=== PATIENT | female | born 1935 | race Caucasian/White ===

== ENCOUNTER → 2017-12-20 | Outpatient (CLI) | payer MEDICARE, BC ==
[2017-12-20 16:47] LABS: Anion Gap 8.6 mmol/L (4.00-12.00); Calcium 8.8 mg/dL (8.7-10.3); Carbon Dioxide 30.4 mmol/L (21.6-31.8); Potassium 4.2 mmol/L (3.5-5.5)
== END | disposition home or self-care (01) ==
LOC: LABWHC1 10:21
PROVIDERS: ATTEND Internal Medicine Cardiovascular Disease
DX: R60.0 Localized edema (principal)
CPT/HCPCS: 36415; 80048

== ENCOUNTER → 2017-12-30 | Outpatient (CLI) | payer MEDICARE, BC ==
[2017-12-30 17:27] LABS: Anion Gap 8.8 mmol/L (4.00-12.00); Calcium 10.1 mg/dL (8.7-10.3); Carbon Dioxide 28.2 mmol/L (21.6-31.8); Potassium 4.7 mmol/L (3.5-5.5)
== END | disposition home or self-care (01) ==
LOC: LABWHC1 11:02
PROVIDERS: ATTEND Internal Medicine Cardiovascular Disease
DX: I50.9 Heart failure, unspecified (principal)
CPT/HCPCS: 36415; 80048

== ENCOUNTER 2018-03-30 13:14 | Emergency (ER) | payer MEDICARE, BC ==
[2018-03-30] MEDS ORDERED: DIPHENOX-ATROP 2.5-0.025 MG 1 EACH TAB PO STA (13:42)
[2018-03-30] MEDS ORDERED: SODIUM CHLORIDE 0.9% 1,000 ML IV ONE (13:45)
[2018-03-30] MEDS ORDERED: SODIUM CHLORIDE 0.9% 500 ML 500 ML IV ONE (13:45)
--- NOTE | 2018-03-30 13:45 | ED ---
General Adult HPI - General Chief complaint: Recheck/Abnormal Lab/Rx Stated complaint: defibrillator buzzed twice Time Seen by Provider: 03/30/18 13:15 Source: patient, RN notes reviewed Mode of arrival: wheelchair Limitations: no limitations - History of Present Illness Initial comments: This is a 82-year-old female presents emergency Department complaining of nausea vomiting and diarrhea. Patient states she has not vomited all today but continues to have quite a bit of diarrhea. Patient states been ongoing for 5 days. Patient states her had the same thing but he is starting to get over his. Patient states they got it from the grandson about a week ago. Patient states she has no abdominal pain but she just feeling weaker and weaker. Patient denies any chest pain difficulty breathing or shortness of breath. Patient denies any fever chills or cough per patient denies any dysuria hematuria urinary frequency. Patient denies headache. Patient states she's a little bit lightheaded on occasion but no near-syncopal episode. Patient has also mention that earlier in the week her defibrillator paused twice but did not shocked her and she didn't know what that meant. Patient states she had no chest pain difficulty breathing or palpitations at that time. Has not occurred since. - Related Data Home Medications Medication Instructions Recorded Confirmed Calcium Carbonate [Calcium] 600 mg PO DAILY 10/22/15 03/30/18 Cetirizine HCl [Zyrtec] 10 mg PO DAILY PRN 10/22/15 03/30/18 Furosemide [Lasix] 60 mg PO DAILY 10/22/15 03/30/18 Glimepiride [Amaryl] 2 mg PO AC-BRKFST 10/22/15 03/30/18 Magnesium Chloride [Mag64] 64 mg PO DAILY 10/22/15 03/30/18 Multivit with Calcium,Iron,Min 1 each PO DAILY 10/22/15 03/30/18 [Women's Daily Multivitamin] Simvastatin [Zocor] 20 mg PO HS 10/22/15 03/30/18 Spironolactone [Aldactone] 25 mg PO DAILY 10/22/15 03/30/18 Amiodarone [Cordarone] 200 mg PO QAM 11/24/15 03/30/18 Clindamycin Gel [Clindamycin 1 applic TOPICAL BID 12/15/15 03/30/18 Phosphate 1% Gel] Doxycycline Hyclate 100 mg PO DAILY 12/15/15 03/30/18 Triamcinolone 0.1% Lotion [Kenalog 1 applic TOPICAL BID 12/15/15 03/30/18 0.1% Lotion] Ascorbic Acid [Vitamin C] 500 mg PO DAILY 03/30/18 03/30/18 Digoxin [Digitek] 125 mcg PO MOWEFR 03/30/18 03/30/18 Glimepiride [Amaryl] 1 mg PO AC-SUPPER 03/30/18 03/30/18 Levothyroxine Sodium [Synthroid] 25 mcg PO DAILY 03/30/18 03/30/18 Sacubitril/Valsartan [Entresto 24 1 tab PO DAILY 03/30/18 03/30/18 mg-26 mg Tablet] Warfarin [Coumadin] 1 mg PO SUTUTHFR 03/30/18 03/30/18 Warfarin [Coumadin] 1.5 mg PO MOWEFR 03/30/18 03/30/18 sitaGLIPtin [Januvia] 50 mg PO HS 03/30/18 03/30/18 Previous Rx's Medication Instructions Recorded Metoprolol Succinate [Toprol XL] 100 mg PO DAILY #100 tab 12/17/15 Diphenox-Atrop 2.5-0.025 mg 2 tab PO QID PRN 3 Days #10 tab 03/30/18 [Lomotil] Allergies Allergy/AdvReac Type Severity Reaction Status Date / Time quinidine Allergy Rash/Hives Verified 03/30/18 14:21 CLEAR PLASTIC TAPE Allergy Rash/Hives Uncoded 03/30/18 14:21 Review of Systems ROS Statement: Those systems with pertinent positive or pertinent negative responses have been documented in the HPI. ROS Other: All systems not noted in ROS Statement are negative. Past Medical History Past Medical History: Cancer, Diabetes Mellitus, Hyperlipidemia, Osteoarthritis (OA), Skin Disorder, Vascular Disorder Additional Past Medical History / Comment(s): see Dr Cooper's H&P for cardiac history, basal cell skin cancer, rash on face History of Any Multi-Drug Resistant Organisms: None Reported Past Surgical History: AICD, Appendectomy, Bladder Surgery, Bowel Resection, Cholecystectomy, Heart Catheterization, Tonsillectomy, Tubal Ligation Additional Past Surgical History / Comment(s): venogram/fluoroscopy, neema cataracts, Past Anesthesia/Blood Transfusion Reactions: No Reported Reaction Type of Cardiac Device: AICD Device Placement Date:: 2007 Past Psychological History: No Psychological Hx Reported Smoking Status: Never smoker Past Alcohol Use History: None Reported Past Drug Use History: None Reported - Past Family History Father Family Medical History: Cancer Mother Family Medical History: Cancer Sister(s) Family Medical History: Cancer, Deep Vein Thrombosis (DVT) Brother(s) History Unknown: Yes Family Medical History: Cancer General Exam - General Exam Comments Initial Comments: GENERAL: Patient is well-developed and well-nourished. Patient is nontoxic and well- hydrated and is in mild distress. ENT: Neck is soft and supple. No significant lymphadenopathy is noted. Oropharynx is clear. Moist mucous membranes. Neck has full range of motion without eliciting any pain. EYES: The sclera were anicteric and conjunctiva were pink and moist. Extraocular movements were intact and pupils were equal round and reactive to light. Eyelids were unremarkable. PULMONARY: Unlabored respirations. Good breath sounds bilaterally. No audible rales rhonchi or wheezing was noted. CARDIOVASCULAR: There is a regular rate and rhythm without any murmurs gallops or rubs. ABDOMEN: Soft and nontender with normal bowel sounds. No palpable organomegaly was noted. There is no palpable pulsatile mass. SKIN: Skin is clear with no lesions or rashes and otherwise unremarkable. NEUROLOGIC: Patient is alert and oriented x3. Cranial nerves II through XII are grossly intact. Motor and sensory are also intact. Normal speech, volume and content. Symmetrical smile. MUSCULOSKELETAL: Normal extremities with adequate strength and full range of motion. No lower extremity swelling or edema. No calf tenderness. LYMPHATICS: No significant lymphadenopathy is noted PSYCHIATRIC: Normal psychiatric evaluation. Limitations: no limitations Course Vital Signs 03/30/18 03/30/18 03/30/18 13:18 14:00 15:00 Temperature 98.2 F 97.9 F Pulse Rate 71 78 79 Respiratory 18 16 16 Rate Blood Pressure 108/61 94/61 95/64 O2 Sat by Pulse 97 95 96 Oximetry 03/30/18 16:00 Temperature Pulse Rate 78 Respiratory 16 Rate Blood Pressure 90/54 O2 Sat by Pulse 95 Oximetry Medical Decision Making - Medical Decision Making EKG shows a ventricular paced rhythm at 70 bpm QRS is 202 QT interval is 490 QTC is 529. Patient was having no diarrhea in the emergency department. Patient stated after she got fluids she was feeling considerably better. Patient will call her doctor tomorrow for follow-up because of the renal insufficiency she also will follow up with cardiology at 10:00 tomorrow morning for the buzzing sensation in her pacemaker. - Lab Data Result diagrams: 03/30/18 14:29 03/30/18 14:29 Lab Results 03/30/18 03/30/18 03/30/18 Range/Units 14:29 14:29 14:29 WBC 5.6 (3.8-10.6) k/uL RBC 5.09 (3.80-5.40) m/uL Hgb 15.7 (11.4-16.0) gm/dL Hct 47.7 H (34.0-46.0) % MCV 93.6 (80.0-100.0) fL MCH 30.9 (25.0-35.0) pg MCHC 33.0 (31.0-37.0) g/dL RDW 14.3 (11.5-15.5) % Plt Count 118 L (150-450) k/uL Neutrophils % 77 % Lymphocytes % 14 % Monocytes % 8 % Eosinophils % 0 % Basophils % 0 % Neutrophils # 4.3 (1.3-7.7) k/uL Lymphocytes # 0.8 L (1.0-4.8) k/uL Monocytes # 0.4 (0-1.0) k/uL Eosinophils # 0.0 (0-0.7) k/uL Basophils # 0.0 (0-0.2) k/uL PT 27.4 H (9.0-12.0) sec INR 2.8 H (<1.2) APTT 34.0 H (22.0-30.0) sec Sodium 138 (137-145) mmol/L Potassium 4.1 (3.5-5.1) mmol/L Chloride 106 (98-107) mmol/L Carbon Dioxide 17 L (22-30) mmol/L Anion Gap 15 mmol/L BUN 77 H (7-17) mg/dL Creatinine 2.26 H (0.52-1.04) mg/dL Est GFR (CKD-EPI)AfAm 22 (>60 ml/min/1.73 sqM) Est GFR (CKD-EPI)NonAf 19 (>60 ml/min/1.73 sqM) Glucose 136 H (74-99) mg/dL Calcium 8.2 L (8.4-10.2) mg/dL Magnesium 2.3 (1.6-2.3) mg/dL Total Bilirubin 1.1 (0.2-1.3) mg/dL AST 40 H (14-36) U/L ALT 31 (9-52) U/L Alkaline Phosphatase 34 L (38-126) U/L Total Creatine Kinase (30-135) U/L CK-MB (CK-2) (0.0-2.4) ng/mL CK-MB (CK-2) Rel Index Troponin I (0.000-0.034) ng/mL Total Protein 6.7 (6.3-8.2) g/dL Albumin 3.8 (3.5-5.0) g/dL Amylase 85 (30-110) U/L Lipase 77 (23-300) U/L 03/30/18 Range/Units 14:29 WBC (3.8-10.6) k/uL RBC (3.80-5.40) m/uL Hgb (11.4-16.0) gm/dL Hct (34.0-46.0) % MCV (80.0-100.0) fL MCH (25.0-35.0) pg MCHC (31.0-37.0) g/dL RDW (11.5-15.5) % Plt Count (150-450) k/uL Neutrophils % % Lymphocytes % % Monocytes % % Eosinophils % % Basophils % % Neutrophils # (1.3-7.7) k/uL Lymphocytes # (1.0-4.8) k/uL Monocytes # (0-1.0) k/uL Eosinophils # (0-0.7) k/uL Basophils # (0-0.2) k/uL PT (9.0-12.0) sec INR (<1.2) APTT (22.0-30.0) sec Sodium (137-145) mmol/L Potassium (3.5-5.1) mmol/L Chloride (98-107) mmol/L Carbon Dioxide (22-30) mmol/L Anion Gap mmol/L BUN (7-17) mg/dL Creatinine (0.52-1.04) mg/dL Est GFR (CKD-EPI)AfAm (>60 ml/min/1.73 sqM) Est GFR (CKD-EPI)NonAf (>60 ml/min/1.73 sqM) Glucose (74-99) mg/dL Calcium (8.4-10.2) mg/dL Magnesium (1.6-2.3) mg/dL Total Bilirubin (0.2-1.3) mg/dL AST (14-36) U/L ALT (9-52) U/L Alkaline Phosphatase (38-126) U/L Total Creatine Kinase 78 (30-135) U/L CK-MB (CK-2) 1.8 (0.0-2.4) ng/mL CK-MB (CK-2) Rel Index 2.3 Troponin I <0.012 (0.000-0.034) ng/mL Total Protein (6.3-8.2) g/dL Albumin (3.5-5.0) g/dL Amylase (30-110) U/L Lipase (23-300) U/L Disposition Clinical Impression: Acute diarrhea Disposition: HOME SELF-CARE Condition: Good Instructions (If sedation given, give patient instructions): Acute Diarrhea (ED ) Additional Instructions: Patient should follow up with cardiology at 10:00 tomorrow for the buzzing feeling she had her pacemaker. Patient should increase her fluid intake as well as start eating some bland foods. Patient should take Lomotil only when she has diarrhea. Prescriptions: Diphenox-Atrop 2.5-0.025 mg [Lomotil] 2 tab PO QID PRN 3 Days #10 tab PRN Reason: Diarrhea Is patient prescribed a controlled substance at d/c from ED?: No Referrals: Miles Medrano MD [Primary Care Provider] - 1-2 days Time of Disposition: 16:44
[2018-03-30 14:18] VITALS: RESP 16
[2018-03-30 15:13] LABS: Basophils % (A) 0 %; Eosinophils % (A) 0 %; HCT 47.7 % (34.0-46.0); HGB 15.7 gm/dL (11.4-16.0); Lymphocytes # (A) 0.8 k/uL (1.0-4.8); Lymphocytes % (A) 14 %; MCH 30.9 pg (25.0-35.0); MCV 93.6 fL (80.0-100.0); Mean Platelet Volume 7.6; Monocytes # (A) 0.4 k/uL (0-1.0); Monocytes % (A) 8 %; Neutrophils # (A) 4.3 k/uL (1.3-7.7); Neutrophils % (A) 77 %; Platelet Count 118 k/uL (150-450); RBC 5.09 m/uL (3.80-5.40); RDW 14.3 % (11.5-15.5); WBC 5.6 k/uL (3.8-10.6)
[2018-03-30 15:17] LABS: INR 2.8 (<1.2); Prothrombin Time 27.4 sec (9.0-12.0)
[2018-03-30 15:20] VITALS: TEMP 97.9
[2018-03-30 15:20] LABS: Creatine Kinase 78 U/L (30-135)
[2018-03-30 15:21] LABS: Albumin 3.8 g/dL (3.5-5.0); Calcium 8.2 mg/dL (8.4-10.2); Magnesium 2.3 mg/dL (1.6-2.3); Potassium 4.1 mmol/L (3.5-5.1); Total Bilirubin 1.1 mg/dL (0.2-1.3); Total Protein 6.7 g/dL (6.3-8.2)
--- NOTE | 2018-03-30 15:24 | XR ---
EXAMINATION TYPE: XR chest 2V DATE OF EXAM: 03/30/2018 COMPARISON: 12/17/2015 HISTORY: Shortness of breath TECHNIQUE: Frontal and lateral views of the chest are obtained. FINDINGS: Scattered senescent parenchymal changes noted. Hyperinflation compatible with COPD. No evidence for infiltrate. No evidence for atelectasis. Heart size is stable. Mediastinal structures are stable and grossly unremarkable. No evidence for hilar prominence. Degenerative changes dorsal spine. IMPRESSION: 1. No evidence for acute pulmonary disease.
[2018-03-30 15:33] LABS: Creatine Kinase MB 1.8 ng/mL (0.0-2.4); Troponin I <0.012 ng/mL (0.000-0.034)
[2018-03-30 16:07] VITALS: BP 90/54; PULSE 78
== END 2018-03-30 16:59 | disposition home or self-care (01) ==
LOC: EC 13:14
DX: R19.7 Diarrhea, unspecified (principal); T82.897A Other specified complication of cardiac prosthetic devices, implants and grafts, initial encounter; R11.2 Nausea with vomiting, unspecified; Z85.828 Personal history of other malignant neoplasm of skin; E11.9 Type 2 diabetes mellitus without complications; E78.5 Hyperlipidemia, unspecified; I99.9 Unspecified disorder of circulatory system; Z95.810 Presence of automatic (implantable) cardiac defibrillator; Z95.818 Presence of other cardiac implants and grafts; Z79.84 Long term (current) use of oral hypoglycemic drugs; Z79.890 Hormone replacement therapy; Z79.01 Long term (current) use of anticoagulants; Z79.899 Other long term (current) drug therapy; Z88.8 Allergy status to other drugs, medicaments and biological substances; Z91.048 Other nonmedicinal substance allergy status
CPT/HCPCS: 36415; 71046; 80053; 82150; 82550; 82553; 83690; 83735; 84484; 85025; 85610; 85730; 93005; 96360; 99284

== ENCOUNTER 2018-07-03 10:03 | Emergency (ER) | payer MEDICARE, BC ==
[2018-07-03 10:19] VITALS: RESP 18
--- NOTE | 2018-07-03 11:43 | ED ---
General Adult HPI - General Chief complaint: Fall Stated complaint: Fell/rib pain Time Seen by Provider: 07/03/18 11:22 Source: patient, RN notes reviewed, old records reviewed Mode of arrival: wheelchair Limitations: no limitations - History of Present Illness Initial comments: 83-year-old female presenting status post fall. Fall occurred approximately 48 hours prior to arrival. Patient states she lost her balance falling onto her right side. She had head trauma to the right side of her head, no loss consciousness. Patient is currently on Coumadin. She complains of right shoulder pain, right lateral chest wall pain. And right hip pain. She has been ambulatory for the past 2 days. She does report bruising associated with her injuries. No central chest pain. No dyspnea. - Related Data Home Medications Medication Instructions Recorded Confirmed Calcium Carbonate [Calcium] 600 mg PO DAILY 10/22/15 03/30/18 Cetirizine HCl [Zyrtec] 10 mg PO DAILY PRN 10/22/15 03/30/18 Furosemide [Lasix] 60 mg PO DAILY 10/22/15 03/30/18 Glimepiride [Amaryl] 2 mg PO AC-BRKFST 10/22/15 03/30/18 Magnesium Chloride [Mag64] 64 mg PO DAILY 10/22/15 03/30/18 Multivit with Calcium,Iron,Min 1 each PO DAILY 10/22/15 03/30/18 [Women's Daily Multivitamin] Simvastatin [Zocor] 20 mg PO HS 10/22/15 03/30/18 Spironolactone [Aldactone] 25 mg PO DAILY 10/22/15 03/30/18 Amiodarone [Cordarone] 200 mg PO QAM 11/24/15 03/30/18 Clindamycin Gel [Clindamycin 1 applic TOPICAL BID 12/15/15 03/30/18 Phosphate 1% Gel] Doxycycline Hyclate 100 mg PO DAILY 12/15/15 03/30/18 Triamcinolone 0.1% Lotion [Kenalog 1 applic TOPICAL BID 12/15/15 03/30/18 0.1% Lotion] Ascorbic Acid [Vitamin C] 500 mg PO DAILY 03/30/18 03/30/18 Digoxin [Digitek] 125 mcg PO MOWEFR 03/30/18 03/30/18 Glimepiride [Amaryl] 1 mg PO AC-SUPPER 03/30/18 03/30/18 Levothyroxine Sodium [Synthroid] 25 mcg PO DAILY 03/30/18 03/30/18 Sacubitril/Valsartan [Entresto 24 1 tab PO DAILY 03/30/18 03/30/18 mg-26 mg Tablet] Warfarin [Coumadin] 1 mg PO SUTUTHFR 03/30/18 03/30/18 Warfarin [Coumadin] 1.5 mg PO MOWEFR 03/30/18 03/30/18 sitaGLIPtin [Januvia] 50 mg PO HS 03/30/18 03/30/18 Previous Rx's Medication Instructions Recorded Metoprolol Succinate [Toprol XL] 100 mg PO DAILY #100 tab 12/17/15 Diphenox-Atrop 2.5-0.025 mg 2 tab PO QID PRN 3 Days #10 tab 03/30/18 [Lomotil] HYDROcodone/APAP 5-325MG [Pinckard 1 tab PO Q6HR PRN #12 tab 07/03/18 5-325] Allergies Allergy/AdvReac Type Severity Reaction Status Date / Time quinidine Allergy Rash/Hives Verified 07/03/18 10:16 CLEAR PLASTIC TAPE Allergy Rash/Hives Uncoded 03/30/18 14:21 Review of Systems ROS Statement: Those systems with pertinent positive or pertinent negative responses have been documented in the HPI. ROS Other: All systems not noted in ROS Statement are negative. Past Medical History Past Medical History: Cancer, Diabetes Mellitus, Hyperlipidemia, Osteoarthritis (OA), Skin Disorder, Vascular Disorder Additional Past Medical History / Comment(s): see Dr Cooper's H&P for cardiac history, basal cell skin cancer, rash on face History of Any Multi-Drug Resistant Organisms: None Reported Past Surgical History: AICD, Appendectomy, Bladder Surgery, Bowel Resection, Cholecystectomy, Heart Catheterization, Tonsillectomy, Tubal Ligation Additional Past Surgical History / Comment(s): venogram/fluoroscopy, neema cataracts, Past Anesthesia/Blood Transfusion Reactions: No Reported Reaction Type of Cardiac Device: AICD Device Placement Date:: 2007 Past Psychological History: No Psychological Hx Reported Smoking Status: Never smoker Past Alcohol Use History: None Reported Past Drug Use History: None Reported - Past Family History Father Family Medical History: Cancer Mother Family Medical History: Cancer Sister(s) Family Medical History: Cancer, Deep Vein Thrombosis (DVT) Brother(s) History Unknown: Yes Family Medical History: Cancer General Exam Limitations: no limitations General appearance: alert, in no apparent distress Head exam: Present: normocephalic, other (Ecchymosis right ear ) Eye exam: Present: normal appearance, PERRL, EOMI ENT exam: Present: normal exam Neck exam: Present: normal inspection. Absent: tenderness, meningismus Respiratory exam: Present: normal lung sounds bilaterally, chest wall tenderness (Ecchymosis and tenderness, right lateral chest wall). Absent: respiratory distress, wheezes Cardiovascular Exam: Present: regular rate, normal rhythm GI/Abdominal exam: Present: soft. Absent: distended, tenderness Neurological exam: Present: alert, oriented X3, CN II-XII intact. Absent: motor sensory deficit Psychiatric exam: Present: normal affect, normal mood Skin exam: Present: warm, dry, intact, other (Ecchymosis, right shoulder, range of motion at the right shoulder normal, range of motion right hip normal) Course Vital Signs 07/03/18 10:16 Temperature 98.1 F Pulse Rate 78 Respiratory 18 Rate Blood Pressure 141/82 O2 Sat by Pulse 96 Oximetry Medical Decision Making - Medical Decision Making 83-year-old female presenting today status post fall with main complaint of right-sided rib pain. She had head trauma. Head CT is obtained as well as CT of the cervical spine. This is negative for intracranial hemorrhage, negative for mass effect. No cervical spine fracture or subluxation, mild degenerative change. X-ray of the pelvis negative for fracture dislocation. X-ray right shoulder is negative for any acute bony anatomy. Chest x-ray negative for pneumothorax, there is a minimally displaced fifth rib fracture and nondisplaced fourth rib fracture. No focal pneumonia. No pulmonary contusion. She is given an incentive spirometer. She will return with development dyspnea, fever, any concern for developing pneumonia or worsening pain. She will take Tylenol and is prescribed Pinckard for pain as needed. - Lab Data Result diagrams: 07/03/18 12:16 Lab Results 07/03/18 07/03/18 Range/Units 12:16 12:16 WBC 10.2 (3.8-10.6) k/uL RBC 4.93 (3.80-5.40) m/uL Hgb 15.2 (11.4-16.0) gm/dL Hct 46.2 H (34.0-46.0) % MCV 93.7 (80.0-100.0) fL MCH 30.8 (25.0-35.0) pg MCHC 32.8 (31.0-37.0) g/dL RDW 14.5 (11.5-15.5) % Plt Count 139 L (150-450) k/uL Neutrophils % 74 % Lymphocytes % 18 % Monocytes % 5 % Eosinophils % 1 % Basophils % 0 % Neutrophils # 7.6 (1.3-7.7) k/uL Lymphocytes # 1.9 (1.0-4.8) k/uL Monocytes # 0.5 (0-1.0) k/uL Eosinophils # 0.1 (0-0.7) k/uL Basophils # 0.0 (0-0.2) k/uL PT 16.4 H (9.0-12.0) sec INR 1.6 H (<1.2) APTT 31.1 H (22.0-30.0) sec Disposition Clinical Impression: Fall, Rib fracture Disposition: HOME SELF-CARE Condition: Fair Instructions (If sedation given, give patient instructions): Fall Prevention for Older Adults (ED), Rib Fracture (ED) Prescriptions: HYDROcodone/APAP 5-325MG [Pinckard 5-325] 1 tab PO Q6HR PRN #12 tab PRN Reason: Pain Is patient prescribed a controlled substance at d/c from ED?: No Referrals: Miles Medrano MD [Primary Care Provider] - 1-2 days Time of Disposition: 14:09
[2018-07-03 12:58] LABS: Basophils % (A) 0 %; Eosinophils # (A) 0.1 k/uL (0-0.7); Eosinophils % (A) 1 %; HCT 46.2 % (34.0-46.0); HGB 15.2 gm/dL (11.4-16.0); Lymphocytes # (A) 1.9 k/uL (1.0-4.8); Lymphocytes % (A) 18 %; MCH 30.8 pg (25.0-35.0); MCHC 32.8 g/dL (31.0-37.0); MCV 93.7 fL (80.0-100.0); Mean Platelet Volume 8.4; Monocytes # (A) 0.5 k/uL (0-1.0); Monocytes % (A) 5 %; Neutrophils # (A) 7.6 k/uL (1.3-7.7); Neutrophils % (A) 74 %; Platelet Count 139 k/uL (150-450); RBC 4.93 m/uL (3.80-5.40); RDW 14.5 % (11.5-15.5); WBC 10.2 k/uL (3.8-10.6)
--- NOTE | 2018-07-03 13:04 | XR ---
Right RIBS with chest x-ray HISTORY: Trauma 3 days prior, pain Frontal view of the chest and 4 views of the right ribs correlated to prior chest x-ray 03/30/2018 Intracardiac defibrillator leads are stable. Generator is in left pectoral region. The heart remains enlarged. No evident pneumothorax or pleural effusion. Minimal strand-like density present at the jada g bases may reflect atelectasis or scarring. There is a minimally displaced rib fracture on the right at the fifth rib, possibly fourth rib laterally, mild contour deformity noted at the 10th rib latera lly. IMPRESSION: Fourth right rib fracture, possibly additional nondisplaced fractures, bone scan may be o f benefit. There is associated atelectasis.
--- NOTE | 2018-07-03 13:06 | XR ---
Right shoulder HISTORY: Trauma and pain 3 views of the right shoulder Calcification present at the insertion of the rotator cuff. Arthropathy present at the acromioclavicu lar joint. Right lung apex as visualized is normal. Alignment is maintained. Bone mineralization is r educed. IMPRESSION: No fracture or dislocation of the right shoulder.
--- NOTE | 2018-07-03 13:07 | XR ---
AP pelvis HISTORY: Pain, trauma 3 days prior Single frontal view of the pelvis Arthropathy is noted within the hips. Alignment and joint spaces otherwise maintained. No evident fra cture or dislocation. Possible nephrolithiasis on the left. Focus of increased density seen on the le rosy of the lower pole the left kidney. IMPRESSION: No acute abnormalities evident
[2018-07-03 13:10] LABS: INR 1.6 (<1.2); Partial Thromboplastin Time 31.1 sec (22.0-30.0); Prothrombin Time 16.4 sec (9.0-12.0)
--- NOTE | 2018-07-03 14:16 | CT ---
EXAMINATION TYPE: CT brain eleonora goldsmith DATE OF EXAM: 07/03/2018 COMPARISON: None HISTORY: Fall 2 days ago with Right sided injury CT DLP: 1249.8 mGycm Automated exposure control for dose reduction was used. TECHNIQUE: CT scan of the head and cervical spine are performed without contrast. FINDINGS: There is no acute intracranial hemorrhage, mass effect, or midline shift identified. The ventricles and sulci are within normal limits in size. White matter low-attenuation likely represen ts chronic small vessel ischemic change. The globes are intact and the visualized sinuses are remarka ble for probable polyp or mucus retention cyst in the left maxillary sinus, is inflammatory change in the ethmoid air cells. Hyperostosis frontalis interna changes are present. Cervical spine is visualized in its entirety from C1 through upper thoracic levels and demonstrates s atisfactory alignment without evidence of acute fracture or dislocation. Prevertebral soft tissue ap pears within normal limits. The C1-C2 articulation is unremarkable. There is multilevel spondylosis, some loss of disc height present at intervertebral levels especially C4-5 and C5-6 and C6-7. There i s some facet arthropathy changes. IMPRESSION: 1. There is no acute fracture or dislocation evident in the cervical spine. 2. No acute intracranial hemorrhage, mass effect, or midline shift is seen.
[2018-07-03 14:50] VITALS: BP 103/78; PULSE 72; TEMP 98.8
== END 2018-07-03 14:54 | disposition home or self-care (01) ==
LOC: EC 10:03
DX: S22.31XA Fracture of one rib, right side, initial encounter for closed fracture (principal); S00.431A Contusion of right ear, initial encounter; S40.011A Contusion of right shoulder, initial encounter; E11.9 Type 2 diabetes mellitus without complications; E78.5 Hyperlipidemia, unspecified; Z79.01 Long term (current) use of anticoagulants; Z79.890 Hormone replacement therapy; Z79.84 Long term (current) use of oral hypoglycemic drugs; Z79.899 Other long term (current) drug therapy; Z88.8 Allergy status to other drugs, medicaments and biological substances; Z91.048 Other nonmedicinal substance allergy status; Z85.828 Personal history of other malignant neoplasm of skin; Z95.810 Presence of automatic (implantable) cardiac defibrillator; Z95.5 Presence of coronary angioplasty implant and graft; W01.198A Fall on same level from slipping, tripping and stumbling with subsequent striking against other object, initial encounter; Y92.009 Unspecified place in unspecified non-institutional (private) residence as the place of occurrence of the external cause
CPT/HCPCS: 36415; 70450; 72125; 72170; 85025; 85610; 85730; 99284

== ENCOUNTER 2018-11-19 02:08 | Inpatient (IN) | payer MEDICARE, BC ==
[2018-11-19] MEDS ORDERED: NITROGLYCERIN-D5W PMX 50 MG in DEXTROSE/WATER 1 250ML.BAG IV ONE ×3 (02:26→03:43)
[2018-11-19] MEDS ORDERED: SODIUM CHLORIDE 0.9% 1,000 ML IV STA (02:29)
[2018-11-19] MEDS ORDERED: FUROSEMIDE 10 MG/ML 4 ML VIAL IV STA (02:29)
[2018-11-19] MEDS ORDERED: NITROGLYCERIN SL TABS 0.4 MG TAB SUBLINGUAL PRN (02:29)
--- NOTE | 2018-11-19 02:35 | ED ---
General Adult HPI - General Chief complaint: Shortness of Breath Stated complaint: SOB Time Seen by Provider: 11/19/18 02:16 Source: patient, family Mode of arrival: ambulatory Limitations: no limitations - History of Present Illness Initial comments: Dictation was produced using GOBA dictation software. please excuse any grammatical, word or spelling errors. Chief Complaint: 83 yo Female presents with acute onset dyspnea. History of Present Illness: A 83-year-old female she was feeling relatively well until she woke up out of bed with severe respiratory distress. Patient is a history of heart failure. She does not know what her ejection fraction percentage is. Patient states that she was feeling well when she went to bed. She is very short of breath. Denies any cough. Patient denies any chest pain at this time. Patient is brought in by . Patient states that she her usual steak potatoes last night for dinner. She states that she normally eats that. Denies any really salty foods. She hasn't has a history of pacemaker. She does have an established care with special forces officer. The ROS documented in this emergency department record has been reviewed and confirmed by me. Those systems with pertinent positive or negative responses have been documented in the HPI. All other systems are other negative and/or noncontributory. PHYSICAL EXAM: General Impression: Alert and oriented x3, acutely dyspneic, noisy breathing HEENT: Normocephalic atraumatic, extra-ocular movements intact, pupils equal and reactive to light bilaterally, mucous membranes moist. Cardiovascular: Heart regular rate and rhythm, S1&S2 audible, no murmurs, rubs or gallops Chest: Severe bilateral crackles Abdomen: Bowel sounds present, abdomen soft, non-tender, non-distended, no organomegaly Musculoskeletal: Pulses present and equal in all extremities, no peripheral edema Motor: no focal deficits noted Neurological: CN II-XII grossly intact, no focal motor or sensory deficits noted Skin: Intact with no visualized rashes Psych: Anxious ED course: 83-year-old female presents chief complaint dyspnea. Upon arrival shows respiratory rate of 32 hypoxic at 91%. Patient does not use oxygen at home. Plan care bedside ultrasound was performed showing findings to suggest flash pulmonary edema. Lungs axis cardiac view was performed showing no signs of pericardial effusion. She does have reduced ejection fraction with poor cardiac squeeze. Constellation of symptoms and clinical evaluation suggestive of flash pulmonary edema secondary to acute heart failure. Patient given sublingual nitroglycerin, patient started on nitroglycerin infusion placed on BiPAP and provided with Lasix. She denies any infectious symptoms patient does not have any history of COPD. Low clinical suspicion for pneumonia. Patient has no chest pain at this time. EKG shows ventricular paced rhythm that does not meet scar Boso criteria. Laboratory evaluation obtained. Leukocytosis of 13.0 likely secondary to stress. Coumadin at 3.0. Metabolic panel shows creatinine of 1.9. This is around patient's baseline. Rest metabolic panel is unremarkable. First set cardiac enzymes negative. Chest x-ray shows cardiomegaly with findings of congestive heart failure. Patient is reevaluated after BiPAP, Lasix and nitroglycerin initiation. Patient appears improved. She is showing comfortably with breathing. Patient to be admitted with cardiology consultation. EKG interpretation: Ventricular rate 70, ventricular paced rhythm, QS 172, QTc 514. Overall, this EKG is unremarkable - Related Data Home Medications Medication Instructions Recorded Confirmed Calcium Carbonate [Calcium] 600 mg PO DAILY 10/22/15 03/30/18 Cetirizine HCl [Zyrtec] 10 mg PO DAILY PRN 10/22/15 03/30/18 Furosemide [Lasix] 60 mg PO DAILY 10/22/15 03/30/18 Glimepiride [Amaryl] 2 mg PO AC-BRKFST 10/22/15 03/30/18 Magnesium Chloride [Mag64] 64 mg PO DAILY 10/22/15 03/30/18 Multivit with Calcium,Iron,Min 1 each PO DAILY 10/22/15 03/30/18 [Women's Daily Multivitamin] Simvastatin [Zocor] 20 mg PO HS 10/22/15 03/30/18 Spironolactone [Aldactone] 25 mg PO DAILY 10/22/15 03/30/18 Amiodarone [Cordarone] 200 mg PO QAM 11/24/15 03/30/18 Clindamycin Gel [Clindamycin 1 applic TOPICAL BID 12/15/15 03/30/18 Phosphate 1% Gel] Doxycycline Hyclate 100 mg PO DAILY 12/15/15 03/30/18 Triamcinolone 0.1% Lotion [Kenalog 1 applic TOPICAL BID 12/15/15 03/30/18 0.1% Lotion] Ascorbic Acid [Vitamin C] 500 mg PO DAILY 03/30/18 03/30/18 Digoxin [Digitek] 125 mcg PO MOWEFR 03/30/18 03/30/18 Glimepiride [Amaryl] 1 mg PO AC-SUPPER 03/30/18 03/30/18 Levothyroxine Sodium [Synthroid] 25 mcg PO DAILY 03/30/18 03/30/18 Sacubitril/Valsartan [Entresto 24 1 tab PO DAILY 03/30/18 03/30/18 mg-26 mg Tablet] Warfarin [Coumadin] 1 mg PO SUTUTHFR 03/30/18 03/30/18 Warfarin [Coumadin] 1.5 mg PO MOWEFR 03/30/18 03/30/18 sitaGLIPtin [Januvia] 50 mg PO HS 03/30/18 03/30/18 Previous Rx's Medication Instructions Recorded Metoprolol Succinate [Toprol XL] 100 mg PO DAILY #100 tab 12/17/15 Diphenox-Atrop 2.5-0.025 mg 2 tab PO QID PRN 3 Days #10 tab 03/30/18 [Lomotil] HYDROcodone/APAP 5-325MG [[place] 1 tab PO Q6HR PRN #12 tab 07/03/18 5-325] Allergies Allergy/AdvReac Type Severity Reaction Status Date / Time quinidine Allergy Rash/Hives Verified 11/19/18 02:15 CLEAR PLASTIC TAPE Allergy Rash/Hives Uncoded 11/19/18 02:15 Review of Systems ROS Statement: Those systems with pertinent positive or pertinent negative responses have been documented in the HPI. ROS Other: All systems not noted in ROS Statement are negative. Past Medical History Past Medical History: Cancer, Heart Failure, Diabetes Mellitus, Hyperlipidemia, Osteoarthritis (OA), Skin Disorder, Vascular Disorder Additional Past Medical History / Comment(s): see Dr Cooper's H&P for cardiac history, basal cell skin cancer, rash on face History of Any Multi-Drug Resistant Organisms: None Reported Past Surgical History: AICD, Appendectomy, Bladder Surgery, Bowel Resection, Cholecystectomy, Heart Catheterization, Tonsillectomy, Tubal Ligation Additional Past Surgical History / Comment(s): venogram/fluoroscopy, neema cataracts, Past Anesthesia/Blood Transfusion Reactions: No Reported Reaction Type of Cardiac Device: AICD Device Placement Date:: 2007 Past Psychological History: No Psychological Hx Reported Smoking Status: Never smoker Past Alcohol Use History: None Reported Past Drug Use History: None Reported - Past Family History Father Family Medical History: Cancer Mother Family Medical History: Cancer Sister(s) Family Medical History: Cancer, Deep Vein Thrombosis (DVT) Brother(s) History Unknown: Yes Family Medical History: Cancer General Exam Limitations: no limitations Course Vital Signs 11/19/18 11/19/18 11/19/18 02:11 02:19 02:57 Temperature 98 F Pulse Rate 70 70 Respiratory 32 H 22 22 Rate Blood Pressure 138/76 146/74 O2 Sat by Pulse 91 L 97 Oximetry Medical Decision Making - Lab Data Result diagrams: 11/19/18 02:30 11/19/18 02:30 Lab Results 11/19/18 11/19/18 11/19/18 Range/Units 02:28 02:30 02:30 WBC 13.0 H (3.8-10.6) k/uL RBC 4.90 (3.80-5.40) m/uL Hgb 15.4 (11.4-16.0) gm/dL Hct 46.7 H (34.0-46.0) % MCV 95.4 (80.0-100.0) fL MCH 31.4 (25.0-35.0) pg MCHC 32.9 (31.0-37.0) g/dL RDW 14.0 (11.5-15.5) % Plt Count 167 (150-450) k/uL Neutrophils % 57 % Lymphocytes % 36 % Monocytes % 4 % Eosinophils % 1 % Basophils % 1 % Neutrophils # 7.4 (1.3-7.7) k/uL Lymphocytes # 4.6 (1.0-4.8) k/uL Monocytes # 0.6 (0-1.0) k/uL Eosinophils # 0.1 (0-0.7) k/uL Basophils # 0.1 (0-0.2) k/uL PT (9.0-12.0) sec INR (<1.2) APTT (22.0-30.0) sec Sodium 143 (137-145) mmol/L Potassium 3.6 (3.5-5.1) mmol/L Chloride 104 (98-107) mmol/L Carbon Dioxide 23 (22-30) mmol/L Anion Gap 16 mmol/L BUN 34 H (7-17) mg/dL Creatinine 1.90 H (0.52-1.04) mg/dL Est GFR (CKD-EPI)AfAm 27 (>60 ml/min/1.73 sqM) Est GFR (CKD-EPI)NonAf 24 (>60 ml/min/1.73 sqM) Glucose 222 H (74-99) mg/dL POC Glucose (mg/dL) 201 H (75-99) mg/dL POC Glu Cable Installer ID Nhung Vizcarra Calcium 9.3 (8.4-10.2) mg/dL Magnesium 2.2 (1.6-2.3) mg/dL Total Bilirubin 1.8 H (0.2-1.3) mg/dL AST 30 (14-36) U/L ALT 27 (9-52) U/L Alkaline Phosphatase 51 (38-126) U/L Troponin I (0.000-0.034) ng/mL Total Protein 7.0 (6.3-8.2) g/dL Albumin 4.2 (3.5-5.0) g/dL 11/19/18 11/19/18 Range/Units 02:30 02:30 WBC (3.8-10.6) k/uL RBC (3.80-5.40) m/uL Hgb (11.4-16.0) gm/dL Hct (34.0-46.0) % MCV (80.0-100.0) fL MCH (25.0-35.0) pg MCHC (31.0-37.0) g/dL RDW (11.5-15.5) % Plt Count (150-450) k/uL Neutrophils % % Lymphocytes % % Monocytes % % Eosinophils % % Basophils % % Neutrophils # (1.3-7.7) k/uL Lymphocytes # (1.0-4.8) k/uL Monocytes # (0-1.0) k/uL Eosinophils # (0-0.7) k/uL Basophils # (0-0.2) k/uL PT 28.6 H (9.0-12.0) sec INR 3.0 H (<1.2) APTT 35.2 H (22.0-30.0) sec Sodium (137-145) mmol/L Potassium (3.5-5.1) mmol/L Chloride (98-107) mmol/L Carbon Dioxide (22-30) mmol/L Anion Gap mmol/L BUN (7-17) mg/dL Creatinine (0.52-1.04) mg/dL Est GFR (CKD-EPI)AfAm (>60 ml/min/1.73 sqM) Est GFR (CKD-EPI)NonAf (>60 ml/min/1.73 sqM) Glucose (74-99) mg/dL POC Glucose (mg/dL) (75-99) mg/dL POC Glu Cable Installer ID Calcium (8.4-10.2) mg/dL Magnesium (1.6-2.3) mg/dL Total Bilirubin (0.2-1.3) mg/dL AST (14-36) U/L ALT (9-52) U/L Alkaline Phosphatase (38-126) U/L Troponin I <0.012 (0.000-0.034) ng/mL Total Protein (6.3-8.2) g/dL Albumin (3.5-5.0) g/dL Disposition Clinical Impression: Congestive heart failure Disposition: ADMITTED IP TO THIS HOSP Condition: Fair Referrals: Miles Medrano MD [Primary Care Provider] - 1-2 days Decision Time: 03:41
[2018-11-19 02:39] LABS: Basophils # (A) 0.1 k/uL (0-0.2); Basophils % (A) 1 %; Eosinophils # (A) 0.1 k/uL (0-0.7); Eosinophils % (A) 1 %; HCT 46.7 % (34.0-46.0); HGB 15.4 gm/dL (11.4-16.0); Lymphocytes # (A) 4.6 k/uL (1.0-4.8); Lymphocytes % (A) 36 %; MCH 31.4 pg (25.0-35.0); MCHC 32.9 g/dL (31.0-37.0); MCV 95.4 fL (80.0-100.0); Mean Platelet Volume 7.5; Monocytes # (A) 0.6 k/uL (0-1.0); Monocytes % (A) 4 %; Neutrophils # (A) 7.4 k/uL (1.3-7.7); Neutrophils % (A) 57 %; Platelet Count 167 k/uL (150-450)
[2018-11-19 02:47] LABS: Glucose,Whole Blood 201 mg/dL (75-99)
[2018-11-19 02:49] LABS: Albumin 4.2 g/dL (3.5-5.0); Calcium 9.3 mg/dL (8.4-10.2); Magnesium 2.2 mg/dL (1.6-2.3); Potassium 3.6 mmol/L (3.5-5.1); Total Bilirubin 1.8 mg/dL (0.2-1.3)
--- NOTE | 2018-11-19 03:00 | XR ---
EXAMINATION TYPE: XR chest 1V portable DATE OF EXAM: 11/19/2018 COMPARISON: 07/03/2018 HISTORY: Short of breath TECHNIQUE: Single frontal view of the chest is obtained. FINDINGS: There is pulmonary edema. Heart is enlarged. There is left axillary pacemaker. There is sl ight blunting of the costophrenic angles. IMPRESSION: There is congestive heart failure that is new compared to last exam.
[2018-11-19 03:09] LABS: Partial Thromboplastin Time 35.2 sec (22.0-30.0); Prothrombin Time 28.6 sec (9.0-12.0)
[2018-11-19 06:27] LABS: Glucose,Whole Blood 136 mg/dL (75-99)
--- NOTE | 2018-11-19 07:31 | P.HPIM ---
History of Present Illness H&P Date: 11/19/18 Chief Complaint: Dyspnea 83-year-old female with history of congestive heart failure status but post biventricular ICD, history of A. fib on Coumadin Patient presented to the hospital with a private car, she suddenly woke up at 1:50 in the morning complaining of shortness of breath and dyspnea. She lives with her and son and asked to be taken to the hospital for evaluation. She reports that she's been compliant with her medications she hasn't noticed any significant weight changes where she checks every few days. She denies any recent traveling or feeling ill denies any coughing fevers chills or chest pain. Denies any recent changes in her overall health. At baseline she is able to walk around the house with no limitations except for when she climbs stairs she'll get short of breath. She denies using any home oxygen or any devices for ambulation when she is around the house. However when she leaves the house she will need to use a walker. Patient normally able to sleep flat with one pillow denies any orthopnea or paroxysmal nocturnal dyspnea. She notices some leg swelling every now and then but nothing significant over the past few days. She denies any GI bleeding, denies any changes in her urinary or bowel habits, denies any new focal neurologic deficits. In the ED she was found to be hypoxic chest x-rays confirmed pulmonary edema she was started on Lasix and nitro drip and was admitted for treatment of flash pulmonary edema Review of Systems Pertinent positives as noted in HPI. All other systems were reviewed and are negative Past Medical History Past Medical History: Cancer, Heart Failure, Diabetes Mellitus, Hyperlipidemia, Osteoarthritis (OA), Skin Disorder, Vascular Disorder Additional Past Medical History / Comment(s): basal cell skin cancer, rash on face History of Any Multi-Drug Resistant Organisms: None Reported Past Surgical History: AICD, Appendectomy, Bladder Surgery, Bowel Resection, Cholecystectomy, Heart Catheterization, Tonsillectomy, Tubal Ligation Additional Past Surgical History / Comment(s): venogram/fluoroscopy, neema cataracts, Past Anesthesia/Blood Transfusion Reactions: No Reported Reaction Type of Cardiac Device: AICD Device Placement Date:: 2007 Past Psychological History: No Psychological Hx Reported Smoking Status: Never smoker Past Alcohol Use History: None Reported Past Drug Use History: None Reported - Past Family History Father Family Medical History: Cancer Mother Family Medical History: Cancer Sister(s) Family Medical History: Cancer, Deep Vein Thrombosis (DVT) Additional Family Medical History / Comment(s): skin cancer Brother(s) History Unknown: Yes Family Medical History: Cancer Additional Family Medical History / Comment(s): skin cancer Medications and Allergies Home Medications Medication Instructions Recorded Confirmed Type Calcium Carbonate [Calcium] 600 mg PO DAILY 10/22/15 03/30/18 History Cetirizine HCl [Zyrtec] 10 mg PO DAILY PRN 10/22/15 03/30/18 History Furosemide [Lasix] 60 mg PO DAILY 10/22/15 03/30/18 History Glimepiride [Amaryl] 2 mg PO AC-BRKFST 10/22/15 03/30/18 History Magnesium Chloride [Mag64] 64 mg PO DAILY 10/22/15 03/30/18 History Multivit with Calcium,Iron,Min 1 each PO DAILY 10/22/15 03/30/18 History [Women's Daily Multivitamin] Simvastatin [Zocor] 20 mg PO HS 10/22/15 03/30/18 History Spironolactone [Aldactone] 25 mg PO DAILY 10/22/15 03/30/18 History Amiodarone [Cordarone] 200 mg PO QAM 11/24/15 03/30/18 History Clindamycin Gel [Clindamycin 1 applic TOPICAL BID 12/15/15 03/30/18 History Phosphate 1% Gel] Doxycycline Hyclate 100 mg PO DAILY 12/15/15 03/30/18 History Triamcinolone 0.1% Lotion [Kenalog 1 applic TOPICAL BID 12/15/15 03/30/18 History 0.1% Lotion] Metoprolol Succinate [Toprol XL] 100 mg PO DAILY #100 tab 12/17/15 03/30/18 Rx Ascorbic Acid [Vitamin C] 500 mg PO DAILY 03/30/18 03/30/18 History Digoxin [Digitek] 125 mcg PO MOWEFR 03/30/18 03/30/18 History Diphenox-Atrop 2.5-0.025 mg 2 tab PO QID PRN 3 Days #10 tab 03/30/18 Rx [Lomotil] Glimepiride [Amaryl] 1 mg PO AC-SUPPER 03/30/18 03/30/18 History Levothyroxine Sodium [Synthroid] 25 mcg PO DAILY 03/30/18 03/30/18 History Sacubitril/Valsartan [Entresto 24 1 tab PO DAILY 03/30/18 03/30/18 History mg-26 mg Tablet] Warfarin [Coumadin] 1 mg PO SUTUTHFR 03/30/18 03/30/18 History Warfarin [Coumadin] 1.5 mg PO MOWEFR 03/30/18 03/30/18 History sitaGLIPtin [Januvia] 50 mg PO HS 03/30/18 03/30/18 History HYDROcodone/APAP 5-325MG [[place] 1 tab PO Q6HR PRN #12 tab 07/03/18 Rx 5-325] Allergies Allergy/AdvReac Type Severity Reaction Status Date / Time quinidine Allergy Rash/Hives Verified 11/19/18 02:15 CLEAR PLASTIC TAPE Allergy Rash/Hives Uncoded 11/19/18 02:15 Physical Exam Vitals: Vital Signs Temp Pulse Pulse Resp BP BP Pulse Ox 11/19/18 05:48 70 21 11/19/18 04:42 96 11/19/18 04:13 98.7 F 70 21 115/59 95 11/19/18 04:02 70 22 110/60 96 11/19/18 02:57 70 22 146/74 97 11/19/18 02:19 22 11/19/18 02:11 98 F 70 32 H 138/76 91 L Intake and Output 11/18/18 11/19/18 11/19/18 22:59 06:59 14:59 Intake Total 100 Output Total 150 Balance -50 Intake: Oral 100 Output: Urine 150 Other: Voiding Method Bedside Commode Weight 70.7 kg Constitutional: No acute distress, conversant, pleasant, currently on BiPAP Eyes: Anicteric sclerae, moist conjunctiva, no lid-lag Pupils equal round reactive to light ENMT: NC/AT Oropharynx clear, no erythema, exudates Neck: Supple, FROM, no masses, or JVD No carotid bruits No thyromegaly Lungs: Diffuse rales from midlungs and below bilaterally Clear to percussion Patient currently is on BiPAP Cardiovascular: Heart regular in rate and rhythm, Systolic murmurs, no gallops, or rubs Trace bilateral peripheral edema in her legs Abdominal: Soft Nontender, no guarding, rebound or rigidity Abdomen moving with respiration Normoactive bowel sounds No hepatomegaly, No splenomegaly No palpable mass No abdominal wall hernia noted Skin: Normal temperature, tone, texture, turgor No induration No subcutaneous nodules No rash, lesions No ulcers Extremities: No digital cyanosis No clubbing Pedal pulses intact and symmetrical Radial pulses intact and symmetrical No calf tenderness Psychiatric: Alert and oriented to person, place and time Appropriate affect fair judgment Neuro Muscles Strength 4/5 in all 4 extremities Sensation to light touch grossly present throughout Cranial nerves II-XII grossly intact No focal sensory deficits Lymphatics: no palpable cervical or supraclavicular , or inguinal lymph nodes Results CBC & Chem 7: 11/19/18 02:30 11/19/18 02:30 Labs: Abnormal Lab Results - Last 24 Hours (Table) 11/19/18 11/19/18 11/19/18 Range/Units 02:28 02:30 02:30 WBC 13.0 H (3.8-10.6) k/uL Hct 46.7 H (34.0-46.0) % PT (9.0-12.0) sec INR (<1.2) APTT (22.0-30.0) sec BUN 34 H (7-17) mg/dL Creatinine 1.90 H (0.52-1.04) mg/dL Glucose 222 H (74-99) mg/dL POC Glucose (mg/dL) 201 H (75-99) mg/dL Total Bilirubin 1.8 H (0.2-1.3) mg/dL 11/19/18 11/19/18 Range/Units 02:30 06:26 WBC (3.8-10.6) k/uL Hct (34.0-46.0) % PT 28.6 H (9.0-12.0) sec INR 3.0 H (<1.2) APTT 35.2 H (22.0-30.0) sec BUN (7-17) mg/dL Creatinine (0.52-1.04) mg/dL Glucose (74-99) mg/dL POC Glucose (mg/dL) 136 H (75-99) mg/dL Total Bilirubin (0.2-1.3) mg/dL Thrombosis Risk Factor Assmnt - Choose All That Apply Any of the Below Risk Factors Present?: Yes Each Factor Represents 1 point: Heart failure (<1month) Other Risk Factors: Yes Each Risk Factor Represents 3 Points: Age 75 years or older, Family history of DVT/PE Thrombosis Risk Factor Assessment Total Risk Factor Score: 7 Thrombosis Risk Factor Assessment Level: High Risk Assessment and Plan Assessment: 85 year old female with history of CHF, admitted as inpatient with anticipated length of stay more than two midnights, for acute CHF exacerbation , presented with shortness of breath sudden onset. CXR in the ED confirmed pulmonary edema , patient started on lasix and BIpap Plan: Acute hypoxic respiratory failure Pulmonary edema Acute exacerbation of systolic congestive heart failure Patient was started on IV Lasix Kept on BiPAP overnight Nitro drip, will be discontinued at this time Cardiology consult Check 2-D echo Fluid restriction Monitor daily weight Monitor urine output Chronic conditions History of A. fib, on Coumadin Systolic and diastolic CHF status post biventricular ICD Hypertension Hyperlipidemia Diabetes mellitus continue with insulin sliding scale CK D stage IV Home meds needs to be verified with pharmacy Preformed a thorough record review from recent hospitalization patient sustained a fall and found to have a fracture in her ribs she was discharged same day from ER CODE STATUS: Full code DVT prophylaxis: On Coumadin therapeutic INR for A. fib Discussed with: Patient, ER Anticipated length of stay more than [address]: Home with home care A total of 60 minutes was spent on the care of this complex patient more than 50% of the time was spent in counseling and care coordination.
[2018-11-19] MEDS: INSULIN ASPART (NovoLOG) 100 UNIT/ML VIAL SQ SCH ×4 (08:56→21:29)
[2018-11-19] MEDS: FUROSEMIDE 10 MG/ML 4 ML VIAL IV SCH ×2 (08:59→20:23)
[2018-11-19] MEDS ORDERED: CALCIUM POLYCARBOPHIL 625 MG TAB PO PRN (09:50)
[2018-11-19 11:48] LABS: Glucose,Whole Blood 212 mg/dL (75-99)
[2018-11-19] MEDS: METOPROLOL SUCCINATE (ER) 100 MG TAB.ER.24H PO SCH (12:07)
[2018-11-19] MEDS: AMIODARONE 200 MG TAB PO SCH (12:08)
[2018-11-19] MEDS: SPIRONOLACTONE 25 MG TAB PO SCH (12:08)
[2018-11-19] MEDS: LINAGLIPTIN 5 MG TABLET PO SCH (12:08)
[2018-11-19] MEDS: SACUBITRIL/VALSARTAN 24 MG-26 MG TABLET PO SCH (12:08)
[2018-11-19] MEDS: MAGNESIUM OXIDE 400 MG TAB PO SCH (12:08)
[2018-11-19] MEDS: LEVOTHYROXINE 25 MCG TAB PO SCH (12:08)
--- NOTE | 2018-11-19 12:28 | P.CRDCN ---
History of Present Illness Consult date: 11/19/18 Chief complaint: Shortness of breath History of present illness: This is a pleasant 83-year-old female patient with a past medical history signif icant for severe nonischemic cardiomyopathy, status post by Biv ICD, chronic persistent atrial fibrillation on long-term anticoagulation with Coumadin as well as mitral regurgitation, presented to the emergency room complaining of shortness of breath. The patient was in her usual state of health until last 24 hours when she started experiencing shortness of breath with exertion without any symptoms of chest pain or chest discomfort. No orthopnea or PND. She noticed slight increase in the lower extremities edema. She is known to have severe cardiomyopathy. The patient is on oral Lasix as an outpatient and she stated that she was compliant with all of her medications including the diureti cs. She states also that she was compliant with her diet. She was feeling kind of weak as well. Because of that she called her son to take her to the emergency room. She was admitted with congestive heart failure exacerbation and started on IV Lasix. She stated that her shortness of breath has improved since yesterday. The lower extremities edema has improved as well. She denies any chest pain, dizziness, heart racing, or syncope. She denies any cough or wheezing or fever or chills. The EKG showed underlying atrial fibrillation with ventricular paced rhythm. The BNP came in to be elevated. The chest x-ray showed findings consistent with CHF. The patient does not have any prior ad missions was CHF. She is known to have mitral regurgitation but she never had any mitral valve repair or surgery in the past according to her. On examination she seems to be slightly hypervolemic with crackles mainly over the left lung base and she does have minor pedal edema noted as well. The patient also is known to have chronic atrial fibrillation and she is on oral anticoagulation. She is on Coumadin as an outpatient. Past Medical History Past Medical History: Cancer, Heart Failure, Diabetes Mellitus, Hyperlipidemia, Osteoarthritis (OA), Skin Disorder, Vascular Disorder Additional Past Medical History / Comment(s): basal cell skin cancer, rash on face History of Any Multi-Drug Resistant Organisms: None Reported Past Surgical History: AICD, Appendectomy, Bladder Surgery, Bowel Resection, Cholecystectomy, Heart Catheterization, Tonsillectomy, Tubal Ligation Additional Past Surgical History / Comment(s): venogram/fluoroscopy, neema cataracts, Past Anesthesia/Blood Transfusion Reactions: No Reported Reaction Type of Cardiac Device: AICD Device Placement Date:: 2007 Past Psychological History: No Psychological Hx Reported Smoking Status: Never smoker Past Alcohol Use History: None Reported Past Drug Use History: None Reported - Past Family History Father Family Medical History: Cancer Mother Family Medical History: Cancer Sister(s) Family Medical History: Cancer, Deep Vein Thrombosis (DVT) Additional Family Medical History / Comment(s): skin cancer Brother(s) History Unknown: Yes Family Medical History: Cancer Additional Family Medical History / Comment(s): skin cancer Medications and Allergies Home Medications Medication Instructions Recorded Confirmed Type Furosemide [Lasix] 40 mg PO DAILY 10/22/15 11/19/18 History Magnesium Chloride [Mag64] 64 mg PO DAILY 10/22/15 11/19/18 History Multivit with Calcium,Iron,Min 1 tab PO DAILY 10/22/15 11/19/18 History [Women's Daily Multivitamin] Simvastatin [Zocor] 20 mg PO HS 10/22/15 11/19/18 History Spironolactone [Aldactone] 12.5 mg PO DAILY 10/22/15 11/19/18 History Amiodarone [Cordarone] 200 mg PO QAM 11/24/15 11/19/18 History Clindamycin Gel [Clindamycin 1 applic TOPICAL BID 12/15/15 11/19/18 History Phosphate 1% Gel] Doxycycline Hyclate 100 mg PO DAILY 12/15/15 11/19/18 History Triamcinolone 0.1% Lotion [Kenalog 1 applic TOPICAL BID 12/15/15 11/19/18 History 0.1% Lotion] Metoprolol Succinate [Toprol XL] 100 mg PO DAILY #100 tab 12/17/15 11/19/18 Rx Levothyroxine Sodium [Synthroid] 25 mcg PO DAILY 03/30/18 11/19/18 History Sacubitril/Valsartan [Entresto 24 1 tab PO DAILY 03/30/18 11/19/18 History mg-26 mg Tablet] Warfarin [Coumadin] 1.5 mg PO MOTUFRSA 03/30/18 11/19/18 History Warfarin [Coumadin] 2 mg PO SUWETH 03/30/18 11/19/18 History sitaGLIPtin [Januvia] 50 mg PO DAILY 03/30/18 11/19/18 History Calcium Polycarbophil [Fibercon] 625 mg PO DAILY PRN 11/19/18 11/19/18 History Glimepiride [Amaryl] 2 mg PO AC-SUPPER 11/19/18 11/19/18 History Glimepiride [Amaryl] 4 mg PO AC-BRKFST 11/19/18 11/19/18 History Allergies Allergy/AdvReac Type Severity Reaction Status Date / Time quinidine Allergy Rash/Hives Verified 11/19/18 08:02 CLEAR PLASTIC TAPE Allergy Rash/Hives Uncoded 11/19/18 02:15 Physical Exam Vitals: Vital Signs Temp Pulse Pulse Resp BP BP Pulse Ox 11/19/18 08:00 70 16 94/53 95 11/19/18 05:48 70 21 11/19/18 04:42 96 11/19/18 04:13 98.7 F 70 21 115/59 95 11/19/18 04:02 70 22 110/60 96 11/19/18 02:57 70 22 146/74 97 11/19/18 02:19 22 11/19/18 02:11 98 F 70 32 H 138/76 91 L Intake and Output 11/18/18 11/19/18 11/19/18 22:59 06:59 14:59 Intake Total 100 360 Output Total 150 Balance -50 360 Intake: Oral 100 360 Output: Urine 150 Other: Voiding Method Bedside Commode Weight 70.7 kg - Constitutional General appearance: no acute distress - Respiratory Respiratory: bilateral: rhonchi - Cardiovascular Rhythm: irregularly irregular Heart sounds: normal: S1, S2 Abnormal Heart Sounds: systolic murmur Results 11/19/18 02:30 11/19/18 02:30 Cardiac Enzymes 11/19/18 11/19/18 Range/Units 02:30 02:30 AST 30 (14-36) U/L Troponin I <0.012 (0.000-0.034) ng/mL Coagulation 11/19/18 Range/Units 02:30 PT 28.6 H (9.0-12.0) sec APTT 35.2 H (22.0-30.0) sec CBC 11/19/18 Range/Units 02:30 WBC 13.0 H (3.8-10.6) k/uL RBC 4.90 (3.80-5.40) m/uL Hgb 15.4 (11.4-16.0) gm/dL Hct 46.7 H (34.0-46.0) % Plt Count 167 (150-450) k/uL Comprehensive Metabolic Panel 11/19/18 Range/Units 02:30 Sodium 143 (137-145) mmol/L Potassium 3.6 (3.5-5.1) mmol/L Chloride 104 (98-107) mmol/L Carbon Dioxide 23 (22-30) mmol/L BUN 34 H (7-17) mg/dL Creatinine 1.90 H (0.52-1.04) mg/dL Glucose 222 H (74-99) mg/dL Calcium 9.3 (8.4-10.2) mg/dL AST 30 (14-36) U/L ALT 27 (9-52) U/L Alkaline Phosphatase 51 (38-126) U/L Total Protein 7.0 (6.3-8.2) g/dL Albumin 4.2 (3.5-5.0) g/dL Current Medications Generic Name Dose Route Start Last Admin Trade Name Freq PRN Reason Stop Dose Admin Amiodarone HCl 200 mg 11/19/18 10:00 11/19/18 12:08 Cordarone PO 200 mg QAM VITO Administration Atorvastatin Calcium 10 mg 11/19/18 21:00 Lipitor PO HS VITO Calcium Polycarbophil 625 mg 11/19/18 09:50 Fibercon PO DAILY PRN Constipation Furosemide 40 mg 11/19/18 09:00 11/19/18 08:59 Lasix IV 40 mg Q12HR VITO Administration Glimepiride 4 mg 11/20/18 07:30 Amaryl PO AC-BRKFST VITO Glimepiride 2 mg 11/19/18 17:30 Amaryl PO AC-SUPPER VITO Sodium Chloride 1,000 mls @ 20 mls/hr 11/19/18 02:29 11/19/18 02:40 Saline 0.9% IV 11/20/18 02:28 20 mls/hr .Q24H STA Administration Insulin Aspart 0 unit 11/19/18 07:30 11/19/18 12:11 Novolog SQ Not Given ACHS [facility] Protocol Levothyroxine Sodium 25 mcg 11/19/18 10:00 11/19/18 12:08 Synthroid PO 25 mcg DAILY@0630 VITO Administration Linagliptin 5 mg 11/19/18 10:00 11/19/18 12:08 Tradjenta PO 5 mg DAILY VITO Administration Magnesium Oxide 400 mg 11/19/18 10:00 11/19/18 12:08 Mag-Ox PO 400 mg DAILY VITO Administration Metoprolol Succinate 100 mg 11/19/18 10:00 11/19/18 12:07 Toprol Xl PO 100 mg DAILY VITO Administration Miscellaneous Information 1 each 11/19/18 07:19 Coumadin Per Pharmacy MISCELLANE DIRECTED PRN Per Protocol Multivitamins 1 each 11/20/18 09:00 Theragran PO DAILY [facility] Nitroglycerin 0.4 mg 11/19/18 02:29 11/19/18 03:03 Nitrostat SUBLINGUAL 0.4 mg Q10M PRN Administration Chest Pain Sacubitril/Valsartan 1 each 11/19/18 10:00 11/19/18 12:08 Entresto 24 Mg-26 Mg Tablet PO 1 each DAILY VITO Administration Spironolactone 12.5 mg 11/19/18 10:00 11/19/18 12:08 Aldactone PO 12.5 mg DAILY [facility] Administration Triamcinolone Acetonide 1 applic 11/19/18 21:00 Kenalog TOPICAL BID [facility] Warfarin Sodium 1 mg 11/19/18 18:00 Coumadin PO 11/19/18 18:01 ONCE ONE Intake and Output 11/18/18 11/19/18 11/19/18 22:59 06:59 14:59 Intake Total 100 360 Output Total 150 Balance -50 360 Intake: Oral 100 360 Output: Urine 150 Other: Voiding Method Bedside Commode Weight 70.7 kg 11/19/18 02:30 11/19/18 02:30 Assessment and Plan Assessment: Assessment #1 congestive heart failure exacerbation secondary to systolic dysfunction #2 severe nonischemic cardiomyopathy #3 status post AICD #4 mitral regurgitation #5 chronic atrial fibrillation was controlled heart rate Plan #1 continue the IV Lasix #2 continue monitoring the kidney function and electrolytes #3 obtain an echocardiogram was Doppler to assess EF as well as the severity of mitral regurgitation #4 follow-up with the patient Thank you for allowing us participate in her care
[2018-11-19 16:11] VITALS: BMI 25.9
[2018-11-19 16:39] LABS: Glucose,Whole Blood 129 mg/dL (75-99)
[2018-11-19] MEDS: GLIMEPIRIDE 2 MG TAB PO SCH (17:43)
[2018-11-19] MEDS ORDERED: WARFARIN 1 MG TAB PO ONE (18:00)
[2018-11-19] MEDS: TRIAMCINOLONE 0.1% CREAM 80 GM TUBE TOPICAL SCH (20:23)
[2018-11-19] MEDS: ATORVASTATIN 10 MG TAB PO SCH (20:24)
[2018-11-19 21:26] LABS: Glucose,Whole Blood 133 mg/dL (75-99)
[2018-11-20 06:13] LABS: Glucose,Whole Blood 113 mg/dL (75-99)
[2018-11-20 06:42] LABS: INR 2.9 (<1.2); Prothrombin Time 28.4 sec (9.0-12.0)
[2018-11-20] MEDS: INSULIN ASPART (NovoLOG) 100 UNIT/ML VIAL SQ SCH ×4 (06:47→21:18)
[2018-11-20] MEDS: LEVOTHYROXINE 25 MCG TAB PO SCH (06:49)
[2018-11-20] MEDS: GLIMEPIRIDE 2 MG TAB PO SCH ×2 (06:49→17:03)
[2018-11-20 06:55] LABS: HCT 37.8 % (34.0-46.0); HGB 12.9 gm/dL (11.4-16.0); MCH 31.5 pg (25.0-35.0); MCV 92.7 fL (80.0-100.0); Mean Platelet Volume 7.3; Platelet Count 122 k/uL (150-450); RBC 4.08 m/uL (3.80-5.40); WBC 7.7 k/uL (3.8-10.6)
[2018-11-20 07:04] LABS: Calcium 8.7 mg/dL (8.4-10.2); Potassium 3.5 mmol/L (3.5-5.1)
[2018-11-20] MEDS: SPIRONOLACTONE 25 MG TAB PO SCH (09:00)
[2018-11-20] MEDS: LINAGLIPTIN 5 MG TABLET PO SCH (09:00)
[2018-11-20] MEDS: MAGNESIUM OXIDE 400 MG TAB PO SCH (09:00)
[2018-11-20] MEDS: FUROSEMIDE 10 MG/ML 4 ML VIAL IV SCH ×2 (09:00→21:02)
[2018-11-20] MEDS: MULTIVITAMINS, THERA 1 EACH TAB PO SCH (09:00)
[2018-11-20] MEDS: METOPROLOL SUCCINATE (ER) 100 MG TAB.ER.24H PO SCH (09:01)
[2018-11-20] MEDS: AMIODARONE 200 MG TAB PO SCH (09:01)
[2018-11-20] MEDS: SACUBITRIL/VALSARTAN 24 MG-26 MG TABLET PO SCH (09:01)
[2018-11-20] MEDS: TRIAMCINOLONE 0.1% CREAM 80 GM TUBE TOPICAL SCH ×2 (09:01→21:01)
--- NOTE | 2018-11-20 11:07 | P.PN ---
Subjective Progress Note Date: 11/20/18 Principal diagnosis: CHF exacerbation Patient seen and examined. No acute events overnight. Patient reports significant improvement in her breathing since admission. She continues to complain of shortness of breath especially with exertion. She denies any lower extremity edema. Patient reports medication adherence. Patient states that she follows a low-salt diet. States that she weighs herself every other day. She denies any chest pain or palpitations. No nausea vomiting. No fever or chills. is at bedside. Objective - Vital Signs Vital signs: Vital Signs Temp 97.9 F 11/20/18 08:00 Pulse 92 11/20/18 08:00 Resp 18 11/20/18 08:00 BP 101/56 11/20/18 08:00 Pulse Ox 95 11/20/18 08:25 Intake & Output 11/19/18 11/20/18 11/20/18 18:59 06:59 18:59 Intake Total 960 240 240 Output Total 925 600 Balance 35 -360 240 Weight 70.7 kg 70.5 kg Intake: Oral 960 240 240 Output: Urine 925 600 Other: Voiding Method Bedside Commode Bedside Commode # Voids 1 - Exam General: [non toxic], [no distress], [appears at stated age] Derm: [warm], [dry] Head: [atraumatic], [normocephalic], [symmetric] Eyes: [EOMI], [no lid lag], [anicteric sclera] Mouth: [no lip lesion], [mucus membranes moist] Cardiovascular: [S1S2 reg], [irregular], [positive DP pulse bilateral], Lungs: [Decreased breath sounds bilateral], [no rhonchi, no rales] , [no accessory muscle use] Abdominal: [soft], [ nontender to palpation], [no guarding], [no appreciable organomegaly] Ext: [no gross muscle atrophy], [no edema], [no contractures] Neuro: [no focal neuro deficits] Psych: [Alert], [oriented], [appropriate affect] - Labs CBC & Chem 7: 11/20/18 05:38 11/20/18 05:38 Labs: Abnormal Lab Results - Last 24 Hours (Table) 11/19/18 11/19/18 11/19/18 Range/Units 11:46 16:37 21:23 Plt Count (150-450) k/uL PT (9.0-12.0) sec INR (<1.2) Carbon Dioxide (22-30) mmol/L BUN (7-17) mg/dL Creatinine (0.52-1.04) mg/dL Glucose (74-99) mg/dL POC Glucose (mg/dL) 212 H 129 H 133 H (75-99) mg/dL 11/20/18 11/20/18 11/20/18 Range/Units 05:38 05:38 05:38 Plt Count 122 L (150-450) k/uL PT 28.4 H (9.0-12.0) sec INR 2.9 H (<1.2) Carbon Dioxide 32 H (22-30) mmol/L BUN 38 H (7-17) mg/dL Creatinine 1.57 H (0.52-1.04) mg/dL Glucose 109 H (74-99) mg/dL POC Glucose (mg/dL) (75-99) mg/dL 11/20/18 Range/Units 06:12 Plt Count (150-450) k/uL PT (9.0-12.0) sec INR (<1.2) Carbon Dioxide (22-30) mmol/L BUN (7-17) mg/dL Creatinine (0.52-1.04) mg/dL Glucose (74-99) mg/dL POC Glucose (mg/dL) 113 H (75-99) mg/dL Assessment and Plan Assessment: Assessment and plan Acute hypoxic respiratory failure likely due to CHF exacerbation CHF exacerbation post biventricular ICD Chronic conditions: Atrial fibrillation, hypertension, hyperlipidemia, diabetes mellitus, chronic kidney disease stage IV Improving. Off BiPAP on 2 L NC. Troponin less than 0.012, EKG showing ventricular paced rhythm with PVCs, little concern for ACS. BNP 13,300, chest x-ray showing concerns of congestive heart failure. Plans: Continue Lasix 40 mg IV twice a day. Strict intake and uptake. Daily weights. Telemetry monitoring. Keep potassium greater than 4 and magnesium greater than 2. Follow echocardiogram. Low salt diet with fluid restriction. Follow cardiology recommendations. Repeat chest x-ray in the morning. Plans: Resume beta len. Resume Aldactone. Resume Entresto. Continue Coumadin dosed by pharmacy to maintain INR 2-3. [Patient improving with diuresis. Treatment for CHF exacerbation. Echocardiogram pending. Cardiology on board. Likely DC in 1-2 days.]
--- NOTE | 2018-11-20 11:34 | P.PN ---
Subjective Patient is sitting comfortably in a chair Denies any shortness of breath. Says she feels better. No chest discomfort no dizziness upon standing up Blood pressure 101/56. His mercury pulse rate in the 60s to 90s, afebrile 97.9F Respirations 18 nonlabored Breath sounds are reduced but there are no rhonchi no crackles Heart sounds soft S1-S2 are normal Abdomen soft Impression Severe nonischemic cardio myopathy line status post IV ICD Atrial fibrillation admitted with acute CSF exacerbation, acute on chronic systolic Atrial fibrillation, persistent Chronic kidney disease BUN 38 creatinine 1.57 Suggest Continue IV Lasix Watch creatinine Office records ICD interrogation Continue anticoagulation, INR 2.9 Objective - Vital Signs Vital signs: Vital Signs Temp 97.9 F 11/20/18 08:00 Pulse 92 11/20/18 08:00 Resp 18 11/20/18 08:00 BP 101/56 11/20/18 08:00 Pulse Ox 95 11/20/18 08:25 Intake & Output 11/19/18 11/20/18 11/20/18 18:59 06:59 18:59 Intake Total 960 240 240 Output Total 925 600 Balance 35 -360 240 Weight 70.7 kg 70.5 kg Intake: Oral 960 240 240 Output: Urine 925 600 Other: Voiding Method Bedside Commode Bedside Commode # Voids 1 - Labs CBC & Chem 7: 11/20/18 05:38 11/20/18 05:38 Labs: Abnormal Lab Results - Last 24 Hours (Table) 11/19/18 11/19/18 11/19/18 Range/Units 11:46 16:37 21:23 Plt Count (150-450) k/uL PT (9.0-12.0) sec INR (<1.2) Carbon Dioxide (22-30) mmol/L BUN (7-17) mg/dL Creatinine (0.52-1.04) mg/dL Glucose (74-99) mg/dL POC Glucose (mg/dL) 212 H 129 H 133 H (75-99) mg/dL 11/20/18 11/20/18 11/20/18 Range/Units 05:38 05:38 05:38 Plt Count 122 L (150-450) k/uL PT 28.4 H (9.0-12.0) sec INR 2.9 H (<1.2) Carbon Dioxide 32 H (22-30) mmol/L BUN 38 H (7-17) mg/dL Creatinine 1.57 H (0.52-1.04) mg/dL Glucose 109 H (74-99) mg/dL POC Glucose (mg/dL) (75-99) mg/dL 11/20/18 Range/Units 06:12 Plt Count (150-450) k/uL PT (9.0-12.0) sec INR (<1.2) Carbon Dioxide (22-30) mmol/L BUN (7-17) mg/dL Creatinine (0.52-1.04) mg/dL Glucose (74-99) mg/dL POC Glucose (mg/dL) 113 H (75-99) mg/dL
[2018-11-20 11:36] LABS: Hemoglobin A1C 6.5 % (4.0-6.0)
--- NOTE | 2018-11-20 12:01 | ECHOF ---
Referral Reason:shortness of breath MEASUREMENTS -------- HEIGHT: 165.1 cm WEIGHT: 70.3 kg BP: 111/56 RVIDd: 3.4 cm (< 3.3) IVSd: 0.7 cm (0.6 - 1.1) LVIDd: 7.1 cm (3.9 - 5.3) LVPWd: 1.3 cm (0.6 - 1.1) IVSs: 1.0 cm LVIDs: 5.7 cm LVPWs: 1.8 cm LAESV Index (A-L): 85.60 ml/m Ao Diam: 2.7 cm (2.0 - 3.7) AV Cusp: 1.8 cm (1.5 - 2.6) LA Diam: 5.0 cm (2.7 - 3.8) MV EXCURSION: 16.432 mm (> 18.000) MV EF SLOPE: 113 mm/s (70 - 150) EPSS: 2.5 cm AR PHT: 483 ms RAP: 10.00 mmHg RVSP: 37.58 mmHg FINDINGS -------- Sinus rhythm. This was a technically adequate study. The left ventricle is severely dilated. Left ventricular wall thickness is normal. There is moder ate global hypokinesis of LV . Overall left ventricular systolic function is moderate-severely impa ired with, an EF between 30 - 35 %. Left ventricular fillimg pressure cannot be estimated due to se farheen mitral regurgitation. The right ventricle is normal in size. LA is severely dilated >40 ml/m2 The right atrium is mildly enlarged. Interatrial and interventricular septum intact. The aortic valve is trileaflet and appears structurally normal. There is mild aortic regurgitation. There is no evidence of aortic stenosis. Severe mitral regurgitation is present. Mild tricuspid regurgitation present. There is mild pulmonary hypertension. The right ventricular systolic pressure, as measured by Doppler, is 37.58mmHg. Trace/mild (physiologic) pulmonic regurgitation. The aortic root size is normal. The inferior vena cava is mildly dilated. There is no pericardial effusion. CONCLUSIONS -------- 1. Sinus rhythm. 2. This was a technically adequate study. 3. The left ventricle is severely dilated. 4. Left ventricular wall thickness is normal. 5. There is moderate global hypokinesis of LV . 6. Overall left ventricular systolic function is moderate-severely impaired with, an EF between 30 - 35 %. 7. Left ventricular fillimg pressure cannot be estimated due to severe mitral regurgitation. 8. The right ventricle is normal in size. 9. LA is severely dilated >40 ml/m2 10. The right atrium is mildly enlarged. 11. Interatrial and interventricular septum intact. 12. The aortic valve is trileaflet and appears structurally normal. 13. There is mild aortic regurgitation. 14. There is no evidence of aortic stenosis. 15. Severe mitral regurgitation is present. 16. Mild tricuspid regurgitation present. 17. There is mild pulmonary hypertension. 18. The right ventricular systolic pressure, as measured by Doppler, is 37.58mmHg. 19. Trace/mild (physiologic) pulmonic regurgitation. 20. The aortic root size is normal. 21. The inferior vena cava is mildly dilated. 22. There is no pericardial effusion. WE[employer] DEVELOPMENT INTERN: Ramandeep Cabral RDCS
[2018-11-20 12:05] LABS: Glucose,Whole Blood 134 mg/dL (75-99)
--- NOTE | 2018-11-20 16:53 | P.PCN ---
Preoperative Diagnosis: Interrogation of Biventricular ICD, [facility] [employer] 3369-40 C R waves 0.9 V at 0.5 ms, R waves 10 mV, pacing impedance 380 ohms LV pacing threshold 0.8 V at 1 ms, D1-M2, pacing impedance 1275 ohms High-voltage impedance 41 ohms Device is been programmed to VVT are 70 PPM MADIT RIT programming Biventricular pacing 95% No tachyarrhythmias detected ICD therapy Watch Bi V pacing percentage on telemetry Patient presented with congestive heart failure symptoms
[2018-11-20 17:04] LABS: Glucose,Whole Blood 112 mg/dL (75-99)
[2018-11-20] MEDS ORDERED: WARFARIN 1.5 MG TAB PO ONE (18:00)
[2018-11-20] MEDS: ATORVASTATIN 10 MG TAB PO SCH (21:01)
[2018-11-20 21:16] LABS: Glucose,Whole Blood 134 mg/dL (75-99)
[2018-11-21 06:15] LABS: INR 2.7 (<1.2); Prothrombin Time 26.1 sec (9.0-12.0)
[2018-11-21 06:16] LABS: Glucose,Whole Blood 88 mg/dL (75-99)
[2018-11-21] MEDS: INSULIN ASPART (NovoLOG) 100 UNIT/ML VIAL SQ SCH ×4 (06:27→21:09)
[2018-11-21] MEDS: LEVOTHYROXINE 25 MCG TAB PO SCH (06:51)
[2018-11-21] MEDS: GLIMEPIRIDE 2 MG TAB PO SCH ×2 (06:51→18:10)
[2018-11-21] MEDS: SACUBITRIL/VALSARTAN 24 MG-26 MG TABLET PO SCH (08:29)
[2018-11-21] MEDS: MULTIVITAMINS, THERA 1 EACH TAB PO SCH (08:29)
[2018-11-21] MEDS: METOPROLOL SUCCINATE (ER) 100 MG TAB.ER.24H PO SCH (08:29)
[2018-11-21] MEDS: AMIODARONE 200 MG TAB PO SCH (08:29)
[2018-11-21] MEDS: MAGNESIUM OXIDE 400 MG TAB PO SCH (08:29)
[2018-11-21] MEDS: LINAGLIPTIN 5 MG TABLET PO SCH (08:29)
[2018-11-21] MEDS: SPIRONOLACTONE 25 MG TAB PO SCH (08:29)
[2018-11-21] MEDS: FUROSEMIDE 10 MG/ML 4 ML VIAL IV SCH (08:29)
--- NOTE | 2018-11-21 10:52 | P.PN ---
Subjective Progress Note Date: 11/21/18 Principal diagnosis: CHF exacerbation Patient seen and examined. No acute events overnight. Patient reports significant improvement in her breathing since admission. Currently saturating mid 90s on room air. She denies any lower extremity edema. She denies any chest pain or palpitations. No nausea vomiting. No fever or chills. is at bedside. Objective - Vital Signs Vital signs: Vital Signs Temp 98 F 11/21/18 08:00 Pulse 70 11/21/18 08:00 Resp 16 11/21/18 08:00 BP 111/59 11/21/18 08:00 Pulse Ox 96 11/21/18 08:00 Intake & Output 11/20/18 11/21/18 11/21/18 18:59 06:59 18:59 Intake Total 720 240 Output Total 500 1100 Balance 220 -1100 240 Weight 69.4 kg Intake: Oral 720 240 Output: Urine 500 1100 Other: Voiding Method Toilet # Voids 3 1 # Bowel Movements 0 - Exam General: [non toxic], [no distress], [appears at stated age] Derm: [warm], [dry] Head: [atraumatic], [normocephalic], [symmetric] Eyes: [EOMI], [no lid lag], [anicteric sclera] Mouth: [no lip lesion], [mucus membranes moist] Cardiovascular: [S1S2 reg], [irregular], [positive DP pulse bilateral], Lungs: [Decreased breath sounds bilateral], [no rhonchi, no rales] , [no accessory muscle use] Abdominal: [soft], [ nontender to palpation], [no guarding], [no appreciable organomegaly] Ext: [no gross muscle atrophy], [no edema], [no contractures] Neuro: [no focal neuro deficits] Psych: [Alert], [oriented], [appropriate affect] - Labs CBC & Chem 7: 11/20/18 05:38 11/20/18 05:38 Labs: Abnormal Lab Results - Last 24 Hours (Table) 11/19/18 11/20/18 11/20/18 Range/Units 02:30 12:03 16:46 PT (9.0-12.0) sec INR (<1.2) POC Glucose (mg/dL) 134 H 112 H (75-99) mg/dL Hemoglobin A1c 6.5 H (4.0-6.0) % 11/20/18 11/21/18 Range/Units 21:14 05:38 PT 26.1 H (9.0-12.0) sec INR 2.7 H (<1.2) POC Glucose (mg/dL) 134 H (75-99) mg/dL Hemoglobin A1c (4.0-6.0) % Assessment and Plan Assessment: Assessment and plan Acute hypoxic respiratory failure likely due to CHF exacerbation CHF exacerbation post biventricular ICD Chronic conditions: Atrial fibrillation, hypertension, hyperlipidemia, diabetes mellitus, chronic kidney disease stage IV Improving. Off NC and on room air. Troponin less than 0.012, EKG showing ventricular paced rhythm with PVCs, little concern for ACS. BNP 13,300, chest x-ray showing concerns of congestive heart failure. Chest x-ray shows EF 30-35% with hypokinetic wall motion. Plans: Continue Lasix 40 mg IV twice a day, transition to oral tomorrow as per cardiology, discussed with [employer] Mess. Strict intake and uptake. Daily weights. Telemetry monitoring. Keep potassium greater than 4 and magnesium greater than 2. Low salt diet with fluid restriction. Follow cardiology recommendations. Repeat chest x-ray pending. Echocardiogram as above. Plans: Resume beta len. Resume Aldactone. Resume Entresto. Continue Coumadin dosed by pharmacy to maintain INR 2-3. [Patient improving with diuresis. Treatment for CHF exacerbation. Transition to oral Lasix tomorrow. Likely DC in 1-2 days.]
[2018-11-21 11:44] LABS: Calcium 9.3 mg/dL (8.4-10.2); Potassium 3.3 mmol/L (3.5-5.1)
[2018-11-21 11:56] LABS: Glucose,Whole Blood 133 mg/dL (75-99)
--- NOTE | 2018-11-21 13:29 | P.PN ---
Subjective Progress Note Date: 11/21/18 This is a pleasant 83-year-old female patient with a past medical history significant for severe nonischemic cardiomyopathy, status post by Biv ICD, chronic persistent atrial fibrillation on long-term anticoagulation with Coumadin as well as mitral regurgitation, presented to the emergency room complaining of shortness of breath. The patient was in her usual state of health until last 24 hours when she started experiencing shortness of breath with exertion without any symptoms of chest pain or chest discomfort. No orthopnea or PND. She noticed slight increase in the lower extremities edema. She is known to have severe cardiomyopathy. The patient is on oral Lasix as an outpatient and she stated that she was compliant with all of her medications including the diuretics. She states also that she was compliant with her diet. She was feeling kind of weak as well. Because of that she called her son to take her to the emergency room. She was admitted with congestive heart failure exacerbation and started on IV Lasix. She stated that her shortness of breath has improved since yesterday. The lower extremities edema has improved as well. She denies any chest pain, dizziness, heart racing, or syncope. She denies any cough or wheezing or fever or chills. The EKG showed underlying atrial fibrillation with ventricular paced rhythm. The BNP came in to be elevated. The chest x-ray showed findings consistent with CHF. The patient does not have any prior admissions was CHF. She is known to have mitral regurgitation but she never had any mitral valve repair or surgery in the past according to her. On examination she seems to be slightly hypervolemic with crackles mainly over the left lung base and she does have minor pedal edema noted as well. The patient also is known to have chronic atrial fibrillation and she is on oral anticoagulation. She is on Coumadin as an outpatient. 11/21/2018 Patient underwent interrogation of IV AICD yesterday, which revealed by V pacing 95% of the time, no tachyarrhythmias were detected, ICD therapy.patient was on amiodarone on presentation here, she did apparently have a shock from her AICD in the past. Blood pressure 110/60 with a heart rate in the 70s, 96% on room air.INR today is 2.7, sodium 143, potassium 3.3, BUN 37 and creatinine 1.5, TSH 3.6. We'll discontinue the IV Lasix today and start the patient on oral diuretics. Replace potassium. Objective - Vital Signs Vital signs: Vital Signs Temp 98 F 11/21/18 08:00 Pulse 70 11/21/18 08:00 Resp 16 11/21/18 12:00 BP 111/59 11/21/18 08:00 Pulse Ox 96 11/21/18 08:00 Intake & Output 11/20/18 11/21/18 11/21/18 18:59 06:59 18:59 Intake Total 720 240 Output Total 500 1100 Balance 220 -1100 240 Weight 69.4 kg Intake: Oral 720 240 Output: Urine 500 1100 Other: Voiding Method Toilet Toilet # Voids 3 1 # Bowel Movements 0 - Exam PHYSICAL EXAMINATION: GENERAL:83-year-old female in no acute distress at the time of my examination HEENT: Head is atraumatic, normocephalic. Pupils equal, round. Sclera anicteric. Conjunctiva are clear. Mucous membranes of the mouth are moist. Nec k is supple. There is no elevated jugular venous pressure.no carotid bruit is heard. HEART EXAMINATION: heart S1 and S2 irregularly irregular a systolic murmur is heard CHEST EXAMINATION:[ Lungs are clear to auscultation and precussion. No chest wall tenderness is noted on palpation or with deep breathing.] ABDOMEN: [ Soft, nontender. Bowel sounds are heard. No organomegaly noted]. EXTREMITIES:[ 2+ peripheral pulses with no evidence of peripheral edema and no calf tenderness noted]. NEUROLOGIC [patient is awake, alert and oriented X3.] . - Labs CBC & Chem 7: 11/20/18 05:38 11/21/18 05:38 Labs: Abnormal Lab Results - Last 24 Hours (Table) 11/20/18 11/20/18 11/21/18 Range/Units 16:46 21:14 05:38 PT 26.1 H (9.0-12.0) sec INR 2.7 H (<1.2) Potassium (3.5-5.1) mmol/L Carbon Dioxide (22-30) mmol/L BUN (7-17) mg/dL Creatinine (0.52-1.04) mg/dL POC Glucose (mg/dL) 112 H 134 H (75-99) mg/dL 11/21/18 11/21/18 Range/Units 05:38 11:35 PT (9.0-12.0) sec INR (<1.2) Potassium 3.3 L (3.5-5.1) mmol/L Carbon Dioxide 31 H (22-30) mmol/L BUN 37 H (7-17) mg/dL Creatinine 1.58 H (0.52-1.04) mg/dL POC Glucose (mg/dL) 133 H (75-99) mg/dL Assessment and Plan Plan: Assessment an Plan #1 congestive heart failure exacerbation secondary to systolic dysfunction,Acute on chronic #2 severe nonischemic cardiomyopathy #3 status post AICD #4 mitral regurgitation #5 chronic atrial fibrillation was controlled heart rate plan We will discontinue the IV Lasix today and put the patient on oral diuretics 40 mg by mouth twice a day, TSH level came back to be normal. Replace the patient's potassium. DNP note has been reviewed, I agree with a documented findings and plan of care. Patient was seen and examined.
--- NOTE | 2018-11-21 15:16 | XR ---
EXAMINATION TYPE: XR chest 2V DATE OF EXAM: 11/21/2018 COMPARISON: Prior chest x-ray 11/19/2018 HISTORY: Congestive heart failure and shortness of breath TECHNIQUE: Frontal and lateral views of the chest are obtained. FINDINGS: There is improvement in the interstitium and central vascularity is compared to prior exam , lungs are better aerated. No pneumothorax or sizable pleural effusion is evident. Heart remains enl arged. Intracardiac defibrillator leads are stable. There are overlying cardiac leads. Prominent lung volumes may be indicative of underlying COPD. Surgical clips present right upper quadrant. IMPRESSION: There is improvement in patient's volume status, aeration.
[2018-11-21 17:37] LABS: Glucose,Whole Blood 120 mg/dL (75-99)
[2018-11-21] MEDS ORDERED: WARFARIN 1.5 MG TAB PO ONE (18:00)
[2018-11-21] MEDS: TRIAMCINOLONE 0.1% CREAM 80 GM TUBE TOPICAL SCH ×2 (18:09→19:36)
[2018-11-21] MEDS: FUROSEMIDE 40 MG TAB PO SCH (18:10)
[2018-11-21] MEDS: POTASSIUM CHLORIDE ER 20 MEQ TAB.ER PO SCH (18:10)
[2018-11-21] MEDS: ATORVASTATIN 10 MG TAB PO SCH (19:36)
[2018-11-21 20:55] LABS: Glucose,Whole Blood 129 mg/dL (75-99)
[2018-11-22] MEDS ORDERED: LEVOTHYROXINE 25 MCG TAB ONE (06:30)
[2018-11-22 07:18] LABS: Glucose,Whole Blood 94 mg/dL (75-99)
[2018-11-22 08:04] LABS: INR 2.3 (<1.2); Prothrombin Time 22.7 sec (9.0-12.0)
[2018-11-22 08:40] LABS: Calcium 9.3 mg/dL (8.4-10.2); Potassium 4.3 mmol/L (3.5-5.1)
[2018-11-22] MEDS: LEVOTHYROXINE 25 MCG TAB PO SCH (08:49)
[2018-11-22] MEDS: INSULIN ASPART (NovoLOG) 100 UNIT/ML VIAL SQ SCH (08:49)
[2018-11-22] MEDS: GLIMEPIRIDE 2 MG TAB PO SCH (08:52)
[2018-11-22] MEDS: MAGNESIUM OXIDE 400 MG TAB PO SCH (08:52)
[2018-11-22] MEDS: MULTIVITAMINS, THERA 1 EACH TAB PO SCH (08:52)
[2018-11-22] MEDS: SPIRONOLACTONE 25 MG TAB PO SCH (08:52)
[2018-11-22] MEDS: AMIODARONE 200 MG TAB PO SCH (08:52)
[2018-11-22] MEDS: METOPROLOL SUCCINATE (ER) 100 MG TAB.ER.24H PO SCH (08:52)
[2018-11-22] MEDS: LINAGLIPTIN 5 MG TABLET PO SCH (08:52)
[2018-11-22] MEDS: FUROSEMIDE 40 MG TAB PO SCH (08:52)
[2018-11-22] MEDS: SACUBITRIL/VALSARTAN 24 MG-26 MG TABLET PO SCH (08:53)
[2018-11-22] MEDS: TRIAMCINOLONE 0.1% CREAM 80 GM TUBE TOPICAL SCH (08:57)
--- NOTE | 2018-11-22 11:33 | P.DS ---
Providers Date of admission: 11/19/18 03:36 Expected date of discharge: 11/22/18 Attending physician: Deirdre Mccall MD Consults: 11/19/18 03:36 Consult Physician Routine Consulting Provider: Saran Snowden Consult Reason/Comments: heart failure Do you want consulting provider notified?: Yes Primary care physician: [facility] Course: 83-year-old female with history of congestive heart failure status but post biventricular ICD, history of A. fib on Coumadin Patient presented to the hospital with a private car, she suddenly woke up at 1:50 in the morning complaining of shortness of breath and dyspnea. She lives with her and son and asked to be taken to the hospital for evaluation. She reports that she's been compliant with her medications she hasn't noticed any significant weight changes where she checks every few days. In the ED she was found to be hypoxic chest x-ray confirmed pulmonary edema she was started on Lasix and nitroglycerin drip and was admitted for treatment of flash pulmonary edema. Patient was initially started on BiPAP from the ED and and transitioned to nasal cannula on day 1. Troponin was less than 0.012 with EKG showing ventricular paced rhythm and PVCs, there was no concern for ACS. BNP was 13,300 and chest x-ray showed concerns of congestive heart failure. Echocardiogram was done which showed EF 30-35% with hypokinetic wall motion. Cardiology was consulted and recommended diuresis with Lasix 40 mg IV twice a day. Repeat chest x-ray showed improvement in aeration. Patient was seen and examined. No acute events overnight. Patient reports significant improvement in her breathing. States that she is back to baseline. She denies any chest pain, shortness breath or palpitations. No nausea or vomiting. No fever or chills. General: [non toxic], [no distress], [appears at stated age] Derm: [warm], [dry] Head: [atraumatic], [normocephalic], [symmetric] Eyes: [EOMI], [no lid lag], [anicteric sclera] Mouth: [no lip lesion], [mucus membranes moist] Cardiovascular: [S1S2 reg], [irregular], [positive DP pulse bilateral], Lungs: [Decreased breath sounds bilateral], [no rhonchi, no rales] , [no accessory muscle use] Abdominal: [soft], [ nontender to palpation], [no guarding], [no appreciable organomegaly] Ext: [no gross muscle atrophy], [no edema], [no contractures] Neuro: [no focal neuro deficits] Psych: [Alert], [oriented], [appropriate affect] Assessment and plan Acute hypoxic respiratory failure likely due to CHF exacerbation CHF exacerbation post biventricular ICD Chronic conditions: Atrial fibrillation, hypertension, hyperlipidemia, diabetes mellitus, chronic kidney disease stage IV Improving. Off NC and on room air. Troponin less than 0.012, EKG showing ventricular paced rhythm with PVCs, little concern for ACS. BNP 13,300, chest x-ray showing concerns of congestive heart failure, improved on repeat chest x- ray. Chest x-ray shows EF 30-35% with hypokinetic wall motion. Plans: Continue Lasix 40 mg IV twice a day, transition to oral tomorrow as per cardiology, discussed with EQUIPMENT SPECIALIST Mess. Strict intake and uptake. Daily weights. Telemetry mo nitoring. Keep potassium greater than 4 and magnesium greater than 2. Low salt diet with fluid restriction. Follow cardiology recommendations. Echocardiogram as above. Plans: Resume beta len. Resume Aldactone. Resume Entresto. Continue Coumadin dosed by pharmacy to maintain INR 2-3. [Patient improving with diuresis. Transitioned to Lasix by mouth. Cardiology cleared for discharge. DC today. ] Pertinent Studies: Chest x-ray, echocardiogram Patient Condition at Discharge: Stable Plan - Discharge Summary Discharge Rx Participant: No New Discharge Prescriptions: New Furosemide [Lasix] 40 mg PO BID@0900,1600 #60 tab Continue Spironolactone [Aldactone] 12.5 mg PO DAILY Simvastatin [Zocor] 20 mg PO HS Multivit with Calcium,Iron,Min [Women's Daily Multivitamin] 1 tab PO DAILY Magnesium Chloride [Mag64] 64 mg PO DAILY Amiodarone [Cordarone] 200 mg PO QAM Triamcinolone 0.1% Lotion [Kenalog 0.1% Lotion] 1 applic TOPICAL BID Doxycycline Hyclate 100 mg PO DAILY Clindamycin Gel [Clindamycin Phosphate 1% Gel] 1 applic TOPICAL BID Metoprolol Succinate [Toprol XL] 100 mg PO DAILY #100 tab Levothyroxine Sodium [Synthroid] 25 mcg PO DAILY Sacubitril/Valsartan [Entresto 24 mg-26 mg Tablet] 1 tab PO DAILY sitaGLIPtin [Januvia] 50 mg PO DAILY Warfarin [Coumadin] 2 mg PO SUWETH Warfarin [Coumadin] 1.5 mg PO MOTUFRSA Glimepiride [Amaryl] 2 mg PO AC-SUPPER Glimepiride [Amaryl] 4 mg PO AC-BRKFST Calcium Polycarbophil [Fibercon] 625 mg PO DAILY PRN PRN Reason: Constipation Discontinued Furosemide [Lasix] 40 mg PO DAILY Discharge Medication List Magnesium Chloride [Mag64] 64 mg PO DAILY 10/22/15 [History] Multivit with Calcium,Iron,Min [Women's Daily Multivitamin] 1 tab PO DAILY 10/22/15 [History] Simvastatin [Zocor] 20 mg PO HS 10/22/15 [History] Spironolactone [Aldactone] 12.5 mg PO DAILY 10/22/15 [History] Amiodarone [Cordarone] 200 mg PO QAM 11/24/15 [History] Clindamycin Gel [Clindamycin Phosphate 1% Gel] 1 applic TOPICAL BID 12/15/15 [History] Doxycycline Hyclate 100 mg PO DAILY 12/15/15 [History] Triamcinolone 0.1% Lotion [Kenalog 0.1% Lotion] 1 applic TOPICAL BID 12/15/15 [History] Metoprolol Succinate [Toprol XL] 100 mg PO DAILY #100 tab 12/17/15 [Rx] Levothyroxine Sodium [Synthroid] 25 mcg PO DAILY 03/30/18 [History] Sacubitril/Valsartan [Entresto 24 mg-26 mg Tablet] 1 tab PO DAILY 03/30/18 [History] Warfarin [Coumadin] 1.5 mg PO MOTUFRSA 03/30/18 [History] Warfarin [Coumadin] 2 mg PO SUWETH 03/30/18 [History] sitaGLIPtin [Januvia] 50 mg PO DAILY 03/30/18 [History] Calcium Polycarbophil [Fibercon] 625 mg PO DAILY PRN 11/19/18 [History] Glimepiride [Amaryl] 2 mg PO AC-SUPPER 11/19/18 [History] Glimepiride [Amaryl] 4 mg PO AC-BRKFST 11/19/18 [History] Furosemide [Lasix] 40 mg PO BID@0900,1600 #60 tab 11/22/18 [Rx] Follow up Appointment(s)/Referral(s): Miles Medrano MD [Primary Care Provider] - 11/28/18 9:45 am (Tuesday) Ivan Rucker MD [STAFF PHYSICIAN] - 12/01/18 4:30 pm (Tuesday) Patient Instructions/Handouts: Heart Failure (DC) Activity/Diet/Wound Care/Special Instructions: Diet: Cardiac Follow-up PCP within 3 days of discharge. Follow-up with cardiology within 1 week of discharge. Discharge Disposition: HOME SELF-CARE
[2018-11-22 12:05] LABS: Glucose,Whole Blood 196 mg/dL (75-99)
[2018-11-22 12:32] VITALS: PULSE 72; RESP 14
[2018-11-22 12:35] VITALS: BP 100/56; TEMP 98
--- NOTE | 2018-11-22 13:13 | P.PN ---
Subjective Progress Note Date: 11/22/18 This is a pleasant 83-year-old female patient with a past medical history significant for severe nonischemic cardiomyopathy, status post by Biv ICD, chronic persistent atrial fibrillation on long-term anticoagulation with Coumadin as well as mitral regurgitation, presented to the emergency room complaining of shortness of breath. The patient was in her usual state of health until last 24 hours when she started experiencing shortness of breath with exertion without any symptoms of chest pain or chest discomfort. No orthopnea or PND. She noticed slight increase in the lower extremities edema. She is known to have severe cardiomyopathy. The patient is on oral Lasix as an outpatient and she stated that she was compliant with all of her medications including the diuretics. She states also that she was compliant with her diet. She was feeling kind of weak as well. Because of that she called her son to take her to the emergency room. She was admitted with congestive heart failure exacerbation and started on IV Lasix. She stated that her shortness of breath has improved since yesterday. The lower extremities edema has improved as well. She denies any chest pain, dizziness, heart racing, or syncope. She denies any cough or wheezing or fever or chills. The EKG showed underlying atrial fibrillation with ventricular paced rhythm. The BNP came in to be elevated. The chest x-ray showed findings consistent with CHF. The patient does not have any prior admissions was CHF. She is known to have mitral regurgitation but she never had any mitral valve repair or surgery in the past according to her. On examination she seems to be slightly hypervolemic with crackles mainly over the left lung base and she does have minor pedal edema noted as well. The patient also is known to have chronic atrial fibrillation and she is on oral anticoagulation. She is on Coumadin as an outpatient. 11/21/2018 Patient underwent interrogation of IV AICD yesterday, which revealed by V pacing 95% of the time, no tachyarrhythmias were detected, ICD therapy.patient was on amiodarone on presentation here, she did apparently have a shock from her AICD in the past. Blood pressure 110/60 with a heart rate in the 70s, 96% on room air.INR today is 2.7, sodium 143, potassium 3.3, BUN 37 and creatinine 1.5, TSH 3.6. We'll discontinue the IV Lasix today and start the patient on oral diuretics. Replace potassium. 11/22/2018 Patient seen and examined this morning, sitting up in her chair at bedside, hemodynamically stable. Anticipating discharge home today. Objective - Vital Signs Vital signs: Vital Signs Temp 98.0 F 11/22/18 12:00 Pulse 72 11/22/18 12:00 Resp 14 11/22/18 12:00 BP 100/56 11/22/18 12:00 Pulse Ox 96 11/22/18 12:00 Intake & Output 11/21/18 11/22/18 11/22/18 18:59 06:59 18:59 Intake Total 480 240 Output Total 1100 1200 Balance 480 -1100 -960 Weight 70 kg Intake: Oral 480 240 Output: Urine 1100 1200 Other: Voiding Method Toilet Toilet # Voids 1 1 # Bowel Movements 0 0 - Exam PHYSICAL EXAMINATION: GENERAL:83-year-old female in no acute distress at the time of my examination HEENT: Head is atraumatic, normocephalic. Pupils equal, round. Sclera anicteric. Conjunctiva are clear. Mucous membranes of the mouth are moist. Neck is supple. There is no elevated jugular venous pressure.no carotid bruit is heard. HEART EXAMINATION: heart S1 and S2 irregularly irregular a systolic murmur is heard CHEST EXAMINATION:[ Lungs are clear to auscultation and precussion. No chest wall tenderness is noted on palpation or with deep breathing.] ABDOMEN: [ Soft, nontender. Bowel sounds are heard. No organomegaly noted]. EXTREMITIES:[ 2+ peripheral pulses with no evidence of peripheral edema and no calf tenderness noted]. NEUROLOGIC [patient is awake, alert and oriented X3.] . - Labs CBC & Chem 7: 11/20/18 05:38 11/22/18 05:50 Labs: Abnormal Lab Results - Last 24 Hours (Table) 11/21/18 11/21/18 11/22/18 Range/Units 17:10 20:53 05:50 PT 22.7 H (9.0-12.0) sec INR 2.3 H (<1.2) BUN (7-17) mg/dL Creatinine (0.52-1.04) mg/dL POC Glucose (mg/dL) 120 H 129 H (75-99) mg/dL 11/22/18 11/22/18 Range/Units 05:50 11:41 PT (9.0-12.0) sec INR (<1.2) BUN 37 H (7-17) mg/dL Creatinine 1.48 H (0.52-1.04) mg/dL POC Glucose (mg/dL) 196 H (75-99) mg/dL Assessment and Plan Plan: Assessment an Plan #1 congestive heart failure exacerbation secondary to systolic dysfunction,Acute on chronic #2 severe nonischemic cardiomyopathy #3 status post AICD #4 mitral regurgitation #5 chronic atrial fibrillation was controlled heart rate plan From cardiology's perspective, patient may be able to be discharged home today. We will make a follow-up appointment in the office post discharge. DNP note has been reviewed, I agree with a documented findings and plan of care. Patient was seen and examined.
[2018-11-22] MEDS ORDERED: WARFARIN 2 MG TAB PO ONE (18:00)
== END 2018-11-22 13:11 | disposition home or self-care (01) | DRG 291 ==
LOC: EC 02:08 → 3SCARD 03:36
PROVIDERS: ADMIT Internal Medicine; ATTEND Internal Medicine
DX: I13.0 Hypertensive heart and chronic kidney disease with heart failure and stage 1 through stage 4 chronic kidney disease, or unspecified chronic kidney disease (principal); J96.01 Acute respiratory failure with hypoxia; I50.43 Acute on chronic combined systolic (congestive) and diastolic (congestive) heart failure; N18.4 Chronic kidney disease, stage 4 (severe); I48.19 Other persistent atrial fibrillation; I42.8 Other cardiomyopathies; E78.5 Hyperlipidemia, unspecified; E11.22 Type 2 diabetes mellitus with diabetic chronic kidney disease; I49.3 Ventricular premature depolarization; Z79.01 Long term (current) use of anticoagulants; Z79.4 Long term (current) use of insulin; W19.XXXA Unspecified fall, initial encounter; I34.0 Nonrheumatic mitral (valve) insufficiency; Z79.899 Other long term (current) drug therapy; Z79.890 Hormone replacement therapy; Z95.810 Presence of automatic (implantable) cardiac defibrillator; Z80.8 Family history of malignant neoplasm of other organs or systems; Z85.828 Personal history of other malignant neoplasm of skin
CPT/HCPCS: 36415; 71045; 71046; 80048; 80053; 83036; 83735; 83880; 84443; 84484; 85025; 85027; 85610; 85730; 93005; 93306; 94660; 94760; 96365; 96366; 96375; 99285

== ENCOUNTER → 2019-02-23 | Outpatient (CLI) | payer MEDICARE, BC ==
[2019-02-23 19:10] LABS: T4, Free (Free Thyroxine) 1.5 ng/dL (0.80-1.80)
[2019-02-23 19:20] LABS: African American GFR (CKD) 29.2 (60.0-200.0); Albumin 4.4 g/dL (3.80-4.90); Albumin/Globulin Ratio 2.32 (1.60-3.17); BUN/Creat Ratio 21.67 Ratio (12.00-20.00); Calcium 9.4 mg/dL (8.7-10.3); Chol/HDL Ratio 2.77; Globulin 1.9 g/dL (1.6-3.3); Non-African American GFR(CKD) 25.2 (60.0-200.0); Potassium 3.9 mmol/L (3.5-5.5); Total Bilirubin 1.1 mg/dL (0.3-1.2); Total Protein 6.3 g/dL (6.2-8.2)
== END | disposition home or self-care (01) ==
LOC: LABWHC1 08:19
PROVIDERS: ATTEND Internal Medicine Cardiovascular Disease
DX: E03.2 Hypothyroidism due to medicaments and other exogenous substances (principal); E78.2 Mixed hyperlipidemia; I48.20 Chronic atrial fibrillation, unspecified
CPT/HCPCS: 36415; 80053; 80061; 84439; 84443

== ENCOUNTER 2020-11-21 03:55 | Inpatient (IN) | payer MEDICARE, BC ==
[2020-11-21] MEDS: NITROGLYCERIN SL TABS 0.4 MG TAB SUBLINGUAL PRN ×3 (04:50→05:32)
--- NOTE | 2020-11-21 04:50 | XR ---
EXAMINATION TYPE: XR chest 2V DATE OF EXAM: 11/21/2020 COMPARISON: 11/21/2018 HISTORY: Short of breath TECHNIQUE: FINDINGS: Heart is enlarged. There is some pulmonary interstitial and airspace edema. There is blunti ng of the costophrenic angles. There is left axillary pacemaker. IMPRESSION: There is congestive heart failure with pleural fluid and pulmonary edema which is new com pared to old exam.
[2020-11-21] MEDS ORDERED: ONDANSETRON 4 MG/2 ML VIAL IVP STA (04:59)
[2020-11-21 05:08] LABS: INR 2.5 (<1.2); Partial Thromboplastin Time 27.8 sec (22.0-30.0)
[2020-11-21 05:10] LABS: Albumin 4.1 g/dL (3.5-5.0); Calcium 9.2 mg/dL (8.4-10.2); Potassium 3.7 mmol/L (3.5-5.1); Total Bilirubin 1.5 mg/dL (0.2-1.3)
[2020-11-21 05:42] LABS: Basophils # (A) 0.1 k/uL (0-0.2); Basophils % (A) 1 %; Eosinophils # (A) 0.1 k/uL (0-0.7); Eosinophils % (A) 1 %; HCT 46.2 % (34.0-46.0); HGB 15.4 gm/dL (11.4-16.0); Lymphocytes # (A) 5.2 k/uL (1.0-4.8); Lymphocytes % (A) 44 %; MCHC 33.3 g/dL (31.0-37.0); MCV 96.2 fL (80.0-100.0); Mean Platelet Volume 10.1; Monocytes # (A) 0.5 k/uL (0-1.0); Monocytes % (A) 5 %; Neutrophils # (A) 5.7 k/uL (1.3-7.7); Neutrophils % (A) 48 %; Platelet Count 235 k/uL (150-450); RBC 4.81 m/uL (3.80-5.40); RDW 14.5 % (11.5-15.5)
[2020-11-21 07:15] LABS: Anisocytosis (M) Present
[2020-11-21 07:19] LABS: Large Platelets Present; Poikilocytosis (M) Present
--- NOTE | 2020-11-21 07:35 | ED ---
SOB HPI - General Chief Complaint: Shortness of Breath Stated Complaint: AMOS Time Seen by Provider: 11/21/20 04:51 Source: patient, EMS Mode of arrival: EMS - History of Present Illness Initial Comments: This patient is an 85-year-old woman who arrives by ambulance to be evaluated for shortness of breath. The patient said gives most of the history is she is quite dyspneic. Reportedly patient had been having some intermittent shortness of breath going back days to weeks. She became much worse acutely tonight while her was sleeping. She woke him from sleep and told him that she had called the ambulance. She appeared to be very anxious and short of breath. EMS placed her on oxygen and transported her here. Patient denies chest pain. The shortness of breath is worse lying spine. No fever or chills. No productive cough. No leg pain or swelling. MD Complaint: shortness of breath, cough -: days(s) Severity scale (1-10): 0 Consistency: constant Improves With: upright position Worsens With: lying flat Known History Of: congestive heart failure Treatments Prior to Arrival: oxygen - Related Data Home Oxygen Therapy: No Home Medications Medication Instructions Recorded Confirmed Magnesium Chloride [Mag64] 64 mg PO DAILY 10/22/15 11/19/18 Multivit with Calcium,Iron,Min 1 tab PO DAILY 10/22/15 11/19/18 [Women's Daily Multivitamin] Simvastatin [Zocor] 20 mg PO HS 10/22/15 11/19/18 Spironolactone [Aldactone] 12.5 mg PO DAILY 10/22/15 11/19/18 Amiodarone [Cordarone] 200 mg PO QAM 11/24/15 11/19/18 Clindamycin Gel [Cleocin T 1% Gel] 1 applic TOPICAL BID 12/15/15 11/19/18 Doxycycline Hyclate 100 mg PO DAILY 12/15/15 11/19/18 Triamcinolone 0.1% Lotion [Kenalog 1 applic TOPICAL BID 12/15/15 11/19/18 0.1% Lotion] Levothyroxine Sodium [Synthroid] 25 mcg PO DAILY 03/30/18 11/19/18 Sacubitril/Valsartan [Entresto 24 1 tab PO DAILY 03/30/18 11/19/18 mg-26 mg Tablet] Warfarin [Coumadin] 1.5 mg PO MOTUFRSA 03/30/18 11/19/18 Warfarin [Coumadin] 2 mg PO SUWETH 03/30/18 11/19/18 sitaGLIPtin [Januvia] 50 mg PO DAILY 03/30/18 11/19/18 Glimepiride [Amaryl] 2 mg PO AC-SUPPER 11/19/18 11/19/18 Glimepiride [Amaryl] 4 mg PO AC-BRKFST 11/19/18 11/19/18 calcium polycarbophiL [Fibercon] 625 mg PO DAILY PRN 11/19/18 11/19/18 Previous Rx's Medication Instructions Recorded Metoprolol Succinate [Toprol XL] 100 mg PO DAILY #100 tab 12/17/15 Furosemide [Lasix] 40 mg PO BID@0900,1600 #60 tab 11/22/18 Allergies Allergy/AdvReac Type Severity Reaction Status Date / Time quinidine Allergy Rash/Hives Verified 11/19/18 08:02 CLEAR PLASTIC TAPE Allergy Rash/Hives Uncoded 11/19/18 02:15 Review of Systems ROS Statement: Those systems with pertinent positive or pertinent negative responses have been documented in the HPI. ROS Other: All systems not noted in ROS Statement are negative. Constitutional: Denies: fever, chills, weakness Respiratory: Reports: as per HPI, dyspnea. Denies: cough, wheezes, hemoptysis Cardiovascular: Reports: orthopnea. Denies: chest pain, palpitations, edema, syncope Gastrointestinal: Denies: abdominal pain, vomiting, diarrhea Genitourinary: Denies: dysuria, hematuria Musculoskeletal: Denies: back pain Skin: Denies: rash Neurological: Denies: headache, weakness Past Medical History Past Medical History: Cancer, Heart Failure, Diabetes Mellitus, Hyperlipidemia, Osteoarthritis (OA), Skin Disorder, Vascular Disorder Additional Past Medical History / Comment(s): basal cell skin cancer, rash on face, History of Any Multi-Drug Resistant Organisms: None Reported Past Surgical History: AICD, Appendectomy, Bladder Surgery, Bowel Resection, Cholecystectomy, Heart Catheterization, Hysterectomy, Tonsillectomy, Tubal Ligation Additional Past Surgical History / Comment(s): venogram/fluoroscopy, neema cataracts, Past Anesthesia/Blood Transfusion Reactions: No Reported Reaction Type of Cardiac Device: AICD Device Placement Date:: 2007 Past Psychological History: No Psychological Hx Reported Smoking Status: Never smoker Past Alcohol Use History: None Reported Past Drug Use History: None Reported - Past Family History Father Family Medical History: Cancer Mother Family Medical History: Cancer Sister(s) Family Medical History: Cancer, Deep Vein Thrombosis (DVT) Additional Family Medical History / Comment(s): skin cancer Brother(s) History Unknown: Yes Family Medical History: Cancer Additional Family Medical History / Comment(s): skin cancer General Exam General appearance: alert, in no apparent distress Head exam: Present: atraumatic, normocephalic Eye exam: Present: normal appearance. Absent: scleral icterus, conjunctival injection Neck exam: Present: normal inspection, full ROM Respiratory exam: Present: wheezes. Absent: respiratory distress, rales, rhonchi, stridor, accessory muscle use, decreased breath sounds Cardiovascular Exam: Present: regular rate, normal rhythm, normal heart sounds. Absent: systolic murmur, diastolic murmur, rubs, gallop GI/Abdominal exam: Present: soft. Absent: distended, tenderness, guarding, rebound, rigid, mass Extremities exam: Present: normal inspection, normal capillary refill. Absent: pedal edema, calf tenderness Back exam: Present: normal inspection. Absent: CVA tenderness (R), CVA tenderness (L) Neurological exam: Present: alert, oriented X3, CN II-XII intact. Absent: motor sensory deficit Psychiatric exam: Present: normal affect Skin exam: Present: warm, intact, normal color, diaphoretic. Absent: rash Course Vital Signs 11/21/20 11/21/20 11/21/20 03:56 04:51 04:52 Temperature 98.3 F Pulse Rate 69 70 Respiratory 20 28 H 20 Rate Blood Pressure 147/85 159/92 O2 Sat by Pulse 93 L 96 Oximetry 11/21/20 11/21/20 11/21/20 05:32 05:55 05:59 Temperature Pulse Rate 70 70 70 Respiratory 20 20 20 Rate Blood Pressure 140/73 142/70 128/66 O2 Sat by Pulse 97 98 95 Oximetry 11/21/20 11/21/20 07:37 08:09 Temperature Pulse Rate 70 70 Respiratory 18 18 Rate Blood Pressure 122/63 117/67 O2 Sat by Pulse 98 Oximetry Procedures - [place] Protocol (Time Out) Nurse: Alberto Fernandez Medical Decision Making - Lab Data Result diagrams: 11/21/20 04:34 11/21/20 04:34 Lab Results 11/21/20 11/21/20 11/21/20 Range/Units 04:34 04:34 04:34 WBC 12.0 H (3.8-10.6) k/uL RBC 4.81 (3.80-5.40) m/uL Hgb 15.4 (11.4-16.0) gm/dL Hct 46.2 H (34.0-46.0) % MCV 96.2 (80.0-100.0) fL MCH 32.0 (25.0-35.0) pg MCHC 33.3 (31.0-37.0) g/dL RDW 14.5 (11.5-15.5) % Plt Count 235 (150-450) k/uL MPV 10.1 Neutrophils % 48 % Lymphocytes % 44 % Monocytes % 5 % Eosinophils % 1 % Basophils % 1 % Neutrophils # 5.7 (1.3-7.7) k/uL Lymphocytes # 5.2 H (1.0-4.8) k/uL Monocytes # 0.5 (0-1.0) k/uL Eosinophils # 0.1 (0-0.7) k/uL Basophils # 0.1 (0-0.2) k/uL Manual Slide Review Performed Large Platelets Present Poikilocytosis (manual Present Anisocytosis (manual) Present PT 24.0 H (9.0-12.0) sec INR 2.5 H (<1.2) APTT 27.8 (22.0-30.0) sec D-Dimer 0.73 H (<0.60) mg/L FEU Sodium 144 (137-145) mmol/L Potassium 3.7 (3.5-5.1) mmol/L Chloride 107 (98-107) mmol/L Carbon Dioxide 24 (22-30) mmol/L Anion Gap 13 mmol/L BUN 20 H (7-17) mg/dL Creatinine 1.70 H (0.52-1.04) mg/dL Est GFR (CKD-EPI)AfAm 31 (>60 ml/min/1.73 sqM) Est GFR (CKD-EPI)NonAf 27 (>60 ml/min/1.73 sqM) Glucose 253 H (74-99) mg/dL Lactic Ac Sepsis Rflx Plasma Lactic Acid Alex (0.7-2.0) mmol/L Calcium 9.2 (8.4-10.2) mg/dL Total Bilirubin 1.5 H (0.2-1.3) mg/dL AST 40 H (14-36) U/L ALT 21 (4-34) U/L Alkaline Phosphatase 64 (38-126) U/L Troponin I (0.000-0.034) ng/mL NT-Pro-B Natriuret Pep pg/mL Total Protein 7.0 (6.3-8.2) g/dL Albumin 4.1 (3.5-5.0) g/dL 11/21/20 11/21/20 11/21/20 Range/Units 04:34 04:34 04:34 WBC (3.8-10.6) k/uL RBC (3.80-5.40) m/uL Hgb (11.4-16.0) gm/dL Hct (34.0-46.0) % MCV (80.0-100.0) fL MCH (25.0-35.0) pg MCHC (31.0-37.0) g/dL RDW (11.5-15.5) % Plt Count (150-450) k/uL MPV Neutrophils % % Lymphocytes % % Monocytes % % Eosinophils % % Basophils % % Neutrophils # (1.3-7.7) k/uL Lymphocytes # (1.0-4.8) k/uL Monocytes # (0-1.0) k/uL Eosinophils # (0-0.7) k/uL Basophils # (0-0.2) k/uL Manual Slide Review Large Platelets Poikilocytosis (manual Anisocytosis (manual) PT (9.0-12.0) sec INR (<1.2) APTT (22.0-30.0) sec D-Dimer (<0.60) mg/L FEU Sodium (137-145) mmol/L Potassium (3.5-5.1) mmol/L Chloride (98-107) mmol/L Carbon Dioxide (22-30) mmol/L Anion Gap mmol/L BUN (7-17) mg/dL Creatinine (0.52-1.04) mg/dL Est GFR (CKD-EPI)AfAm (>60 ml/min/1.73 sqM) Est GFR (CKD-EPI)NonAf (>60 ml/min/1.73 sqM) Glucose (74-99) mg/dL Lactic Ac Sepsis Rflx Plasma Lactic Acid Alex 4.3 H* (0.7-2.0) mmol/L Calcium (8.4-10.2) mg/dL Total Bilirubin (0.2-1.3) mg/dL AST (14-36) U/L ALT (4-34) U/L Alkaline Phosphatase (38-126) U/L Troponin I <0.012 (0.000-0.034) ng/mL NT-Pro-B Natriuret Pep 06301 pg/mL Total Protein (6.3-8.2) g/dL Albumin (3.5-5.0) g/dL 11/21/20 Range/Units 06:01 WBC (3.8-10.6) k/uL RBC (3.80-5.40) m/uL Hgb (11.4-16.0) gm/dL Hct (34.0-46.0) % MCV (80.0-100.0) fL MCH (25.0-35.0) pg MCHC (31.0-37.0) g/dL RDW (11.5-15.5) % Plt Count (150-450) k/uL MPV Neutrophils % % Lymphocytes % % Monocytes % % Eosinophils % % Basophils % % Neutrophils # (1.3-7.7) k/uL Lymphocytes # (1.0-4.8) k/uL Monocytes # (0-1.0) k/uL Eosinophils # (0-0.7) k/uL Basophils # (0-0.2) k/uL Manual Slide Review Large Platelets Poikilocytosis (manual Anisocytosis (manual) PT (9.0-12.0) sec INR (<1.2) APTT (22.0-30.0) sec D-Dimer (<0.60) mg/L FEU Sodium (137-145) mmol/L Potassium (3.5-5.1) mmol/L Chloride (98-107) mmol/L Carbon Dioxide (22-30) mmol/L Anion Gap mmol/L BUN (7-17) mg/dL Creatinine (0.52-1.04) mg/dL Est GFR (CKD-EPI)AfAm (>60 ml/min/1.73 sqM) Est GFR (CKD-EPI)NonAf (>60 ml/min/1.73 sqM) Glucose (74-99) mg/dL Lactic Ac Sepsis Rflx Y Plasma Lactic Acid Alex (0.7-2.0) mmol/L Calcium (8.4-10.2) mg/dL Total Bilirubin (0.2-1.3) mg/dL AST (14-36) U/L ALT (4-34) U/L Alkaline Phosphatase (38-126) U/L Troponin I (0.000-0.034) ng/mL NT-Pro-B Natriuret Pep pg/mL Total Protein (6.3-8.2) g/dL Albumin (3.5-5.0) g/dL - EKG Data -: EKG Interpreted by Me Rate: normal (Rate 72 bpm) Interpretation: other (Underlying rhythm appears to be a ventricular paced with PVC) Disposition Referrals: Alberto Solomon MD [Primary Care Provider] - 1-2 days
[2020-11-21 11:20] LABS: Glucose,Whole Blood 171 mg/dL (75-99)
[2020-11-21] MEDS ORDERED: LORATADINE 10 MG TAB PO PRN (11:29)
[2020-11-21] MEDS: FUROSEMIDE 10 MG/ML 4 ML VIAL IV SCH ×2 (12:02→21:28)
[2020-11-21] MEDS: INSULIN ASPART (NovoLOG) 100 UNIT/ML VIAL SQ SCH ×3 (12:05→21:29)
[2020-11-21 13:12] VITALS: BMI 25.7
--- NOTE | 2020-11-21 13:14 | P.HPIM ---
History of Present Illness H&P Date: 11/21/20 Chief Complaint: AMOS HISTORY OF PRESENT ILLNESS This is an 85-year-old female patient of Dr. Solomon and Dr. Rucker with past medical history of nonischemic cardiomyopathy status post IV ICD, chronic persistent atrial fibrillation on long-term anticoagulation with Coumadin, mitral regurgitation, chronic systolic heart failure, hypertension, hyp erlipidemia, diabetes mellitus type 2, chronic kidney disease stage IV, rosacea. Patient states that she has had shortness of breath at nighttime for the past couple of days the worsened last evening. She also has had a 4-5 pound weight gain over 3-4 weeks. Her called 911 and patient was brought into the hospital for further evaluation. She was found to be afebrile, heart rate in the 60s and 70s, blood pressure 147/85, pulse ox 93% on room air. EKG is ventricular paced rhythm. WBC 12, hemoglobin 15.4, platelet count 235. I's were normal. BUN 20 and creatinine of 1.7. Blood sugar 253. INR 2.5. Total bilirubin 1.5 and AST 40, ALT 21, alkaline phosphatase 64. D-dimer 0.73. Troponin negative times 1. Lactic acid 4.3 and repeat 1.5. ProBNP 12,800. Coronal virus PCR not detected. Chest x-ray reveals heart failure with pleural fluid and pulmonary edema. REVIEW OF SYSTEMS Constitutional: No fever, no chills, no night sweats. Reports weight change. No weakness, reports fatigue no lethargy. No daytime sleepiness. EENT: No headache. No blurred vision or double vision, no loss of vision. No loss of Hearing, no ringing in the ears, no dizziness. No nasal drainage or congestion. No epistaxis. No sore throat. Lungs: Reports shortness of breath, cough, no sputum production. No wheezing. Cardiovascular: No chest pain, no lower extremity edema. No palpitations. No paroxysmal nocturnal dyspnea. Reports orthopnea. No lightheadedness or dizziness. No syncopal episodes. Abdominal: No abdominal pain. No nausea, vomiting. No diarrhea. No constipation. No bloody or tarry stools.. No loss of appetite. Genitourinary: No dysuria, increased frequency, urgency. No urinary retention. Musculoskeletal: No myalgias. No muscle weakness, no gait dysfunction, no frequent falls. No back pain. No neck pain. Integumentary: No wounds, no lesions. No rash or pruritus. No unusual bruising. No change in hair or nails. Neurologic: No aphasia. No facial droop. No change in mentation. No head injury. No headache. No paralysis. No paresthesia. Psychiatric: No depression. No anxiety. No mood swings. Endocrine: No abnormal blood sugars. Reports weight change. No excessive sweating or thirst. No cold intolerance. SOCIAL HISTORY Patient is a lifelong nonsmoker, no alcohol use, marijuana use or illicit drug use. She does not have CPAP, O2, nebulizer. She worked in [employer]-type jobs in the past and is retired. FAMILY HISTORY Father at age 67 from kidney cancer. Mother at age 78 with history of breast cancer and also a female cancer. Patient has 1 brother that passed from COPD at age 69. She has 2 sisters one passed at age 45 from breast cancer and one at age 79 for Alzheimer's dementia. Patient has a total of 6 children. 2 were born stillborn. She has one son that is passed from a CVA brain bleed. She has 3 daughters and one has Covid one has problems due to motor vehicle accident. PHYSICAL EXAMINATION Gen: This is an 85-year-old female. She is resting in bed and appears to be comfortable and in no acute distress. HEENT: Head is atraumatic, normocephalic. Pupils equal, round. Sclerae is anicteric. NECK: Supple. No JVD. No lymphadenopathy. No thyromegaly. LUNGS: Clear to auscultation. No wheezes or rhonchi. No intercostal retractions. HEART: Irregularly irregular rhythm with systolic murmur. ABDOMEN: Soft. Bowel sounds are present. No masses. No tenderness. EXTREMITIES: No pedal edema. No calf tenderness. NEUROLOGICAL: Patient is awake, alert and oriented x3. Cranial nerves 2 through 12 are grossly intact. ASSESSMENT AND PLAN 1. Acute toxic respiratory failure secondary to systolic heart failure. Patient has been started on Lasix 40 mg IV every 12 hours, cardiology consult appreciated. Continue Aldactone 12.5 mg daily, metoprolol succinate 100 mg daily, monitor I&O and daily weights, monitor electrolytes and renal function. Hold enalapril due to soft blood pressure. 2. Nonischemic cardiomyopathy status post ICD, stable. 3. Chronic persistent atrial fibrillation on long-term anticoagulation with Coumadin, pharmacy to dose. Continue amiodarone 200 mg daily, Toprol-XL 100 mg daily 4. History of mitral regurgitation. Echocardiogram has been ordered. 5. Hypertension. Continue metoprolol, amiodarone. 6. Hyperlipidemia. Continue atorvastatin 10 mg at bedtime. 7. Diabetes mellitus type 2. Start patient on NovoLog scale before meals and at bedtime, continue glipizide 5 mg twice daily. 8. Hypothyroidism. Continue levothyroxine 25 mg daily. 9. Rosacea. Continue doxycycline 50 mg daily. 10. GI prophylaxis. Protonix. 11. DVT prophylaxis. Coumadin. 12. COVID-19 testing negative. Patient has been hospitalized during a pandemic. Patient will be admitted to the hospital for a minimum of 2 night stay. DISCHARGE PLAN Most likely home with homecare. Impression and plan of care have been directed as dictated by the signing physician. Nicole Park nurse practitioner acting as scribe for signing physician. Past Medical History Past Medical History: Cancer, Heart Failure, Diabetes Mellitus, Hyperlipidemia, Osteoarthritis (OA), Skin Disorder, Vascular Disorder Additional Past Medical History / Comment(s): basal cell skin cancer, rash on face, History of Any Multi-Drug Resistant Organisms: None Reported Past Surgical History: AICD, Appendectomy, Bladder Surgery, Bowel Resection, Cholecystectomy, Heart Catheterization, Hysterectomy, Pacemaker, Tonsillectomy, Tubal Ligation Additional Past Surgical History / Comment(s): venogram/fluoroscopy, neema c ataracts, Past Anesthesia/Blood Transfusion Reactions: No Reported Reaction Type of Cardiac Device: AICD Device Placement Date:: 2007 Past Psychological History: No Psychological Hx Reported Smoking Status: Never smoker Past Alcohol Use History: None Reported Past Drug Use History: None Reported - Past Family History Father Family Medical History: Cancer Mother Family Medical History: Cancer Sister(s) Family Medical History: Cancer, Deep Vein Thrombosis (DVT) Additional Family Medical History / Comment(s): skin cancer Brother(s) History Unknown: Yes Family Medical History: Cancer Additional Family Medical History / Comment(s): skin cancer Medications and Allergies Home Medications Medication Instructions Recorded Confirmed Type Magnesium Chloride [Mag64] 64 mg PO DAILY@0700 10/22/15 11/21/20 History Simvastatin [Zocor] 20 mg PO HS 10/22/15 11/21/20 History Spironolactone [Aldactone] 12.5 mg PO DAILY@0900 10/22/15 11/21/20 History Amiodarone [Cordarone] 200 mg PO DAILY@0900 11/24/15 11/21/20 History Levothyroxine Sodium [Synthroid] 25 mcg PO DAILY@0700 03/30/18 11/21/20 History Warfarin [Coumadin] 1 mg PO SUTUTH@209903/30/18 11/21/20 History Warfarin [Coumadin] 1.5 mg PO MOWEFRSA@209903/30/18 11/21/20 History calcium polycarbophiL [Fibercon] 625 mg PO DAILY PRN 11/19/18 11/21/20 History Cetirizine HCl 10 mg PO DAILY PRN 11/21/20 11/21/20 History Doxycycline Hyclate 50 mg PO DAILY@0900 11/21/20 11/21/20 History Enalapril [Vasotec] 5 mg PO BID@0900,209911/21/20 11/21/20 History Furosemide [Lasix] 40 mg PO DAILY@0900 11/21/20 11/21/20 History Furosemide [Lasix] 40 mg PO Q48H 11/21/20 11/21/20 History Metoprolol Succinate [Toprol XL] 100 mg PO DAILY@0900 11/21/20 11/21/20 History glipiZIDE [Glucotrol] 5 mg PO BID@0900,2100 11/21/20 11/21/20 History Allergies Allergy/AdvReac Type Severity Reaction Status Date / Time quinidine Allergy Rash/Hives Verified 11/21/20 09:12 CLEAR PLASTIC TAPE Allergy Rash/Hives Uncoded 11/21/20 09:12 Physical Exam Vitals: Vital Signs Temp Pulse Pulse Resp BP BP Pulse Ox 11/21/20 10:23 18 98 11/21/20 10:21 98.3 F 70 18 97/54 97 11/21/20 09:52 98.3 F 72 18 107/65 98 11/21/20 08:09 70 18 117/67 11/21/20 07:37 70 18 122/63 98 11/21/20 05:59 70 20 128/66 95 11/21/20 05:55 70 20 142/70 98 11/21/20 05:32 70 20 140/73 97 11/21/20 04:52 70 20 159/92 96 11/21/20 04:51 28 H 11/21/20 03:56 98.3 F 69 20 147/85 93 L Intake and Output 11/20/20 11/21/20 11/21/20 22:59 06:59 14:59 Other: # Voids 0 Weight 70.307 kg 70.307 kg Results CBC & Chem 7: 11/21/20 04:34 11/21/20 04:34 Labs: Abnormal Lab Results - Last 24 Hours (Table) 11/21/20 11/21/20 11/21/20 Range/Units 04:34 04:34 04:34 WBC 12.0 H (3.8-10.6) k/uL Hct 46.2 H (34.0-46.0) % Lymphocytes # 5.2 H (1.0-4.8) k/uL PT 24.0 H (9.0-12.0) sec INR 2.5 H (<1.2) D-Dimer 0.73 H (<0.60) mg/L FEU BUN 20 H (7-17) mg/dL Creatinine 1.70 H (0.52-1.04) mg/dL Glucose 253 H (74-99) mg/dL Plasma Lactic Acid Alex (0.7-2.0) mmol/L Total Bilirubin 1.5 H (0.2-1.3) mg/dL AST 40 H (14-36) U/L 11/21/20 Range/Units 04:34 WBC (3.8-10.6) k/uL Hct (34.0-46.0) % Lymphocytes # (1.0-4.8) k/uL PT (9.0-12.0) sec INR (<1.2) D-Dimer (<0.60) mg/L FEU BUN (7-17) mg/dL Creatinine (0.52-1.04) mg/dL Glucose (74-99) mg/dL Plasma Lactic Acid Alex 4.3 H* (0.7-2.0) mmol/L Total Bilirubin (0.2-1.3) mg/dL AST (14-36) U/L Thrombosis Risk Factor Assmnt - Choose All That Apply Each Factor Represents 1 point: Heart failure (<1month), Obesity (BMI >25) Each Risk Factor Represents 3 Points: Age 75 years or older Thrombosis Risk Factor Assessment Total Risk Factor Score: 5 Thrombosis Risk Factor Assessment Level: High Risk
--- NOTE | 2020-11-21 13:52 | P.CRDCN ---
History of Present Illness Consult date: 11/21/20 History of present illness: HISTORY OF PRESENT ILLNESS: This is a 85-year-old female with a past medical history significant for chronic atrial fibrillation on anticoagulation with Coumadin, nonischemic cardiomyopathy with previous biventricular AICD implantation, congestive heart failure, valvular heart disease, hypertension, hyperlipidemia, and diabetes mellitus. Patient follows in the office with Dr. Rucker. We have been asked to see the patient in consultation for congestive heart failure. Patient examined at the bedside. He presented to the hospital with a chief complaint of shortness of breath. She states over the past 2 days she has been having shortness of breath at night when she attempts to lay flat in bed. She denied any chest pain or pressure. She reports a slight increase in her lower extremity edema beyond her baseline. She also reports a 4 pound weight gain at home. Patient states she has been taking her medications as prescribed. At the time of my examination, the patient states her shortness of breath has significantly improved. EKG reveals ventricular paced rhythm with PVCs Chest xray congestive heart failure with pleural fluid and pulmonary edema which is new compared to old exam Laboratory data: WBC 12.0. Hemoglobin 15.4. Platelet count 235. D-dimer 0.73. Sodium 144. Potassium 3.7. BUN 20. Creatinine 1.70. Troponin negative 1. ProBNP 12,800. Current home cardiac medications include Coumadin 1 mg Tuesday and 1.5 mg Tuesday, Lasix 40 mg in the morning and 40 mg in the afternoon every other day, Aldactone 12.5 mg daily, Zocor 20 mg at night, metoprolol succinate 100 mg daily, enalapril 5 mg twice a day, and amiodarone 200 mg daily Most recent echocardiogram obtained in February 2020 revealed an ejection fraction 25%, mild aortic regurgitation, severe mitral regurgitation, moderate tricuspid regurgitation Cardiac catheterization history: 2007 revealing normal coronary arteries REVIEW OF SYSTEMS: At the time of my exam: CONSTITUTIONAL: Denies fever or chills. HEENT: Denies blurred vision, vision changes, or eye pain. Denies hemoptysis CARDIOVASCULAR: Denies chest pain. Denies orthopnea. Denies PND. Denies palpitations RESPIRATORY: Denies shortness of breath. GASTROINTESTINAL: Denies abdominal pain. Denies nausea or vomiting. HEMATOLOGIC: Denies bleeding disorders. GENITOURINARY: Denies any blood in urine. SKIN: Denies pruitis. Denies rash. PHYSICAL EXAM: VITAL SIGNS: Reviewed. GENERAL: Well-developed in no acute distress. HEENT: Head is normocephalic. Pupils are equal, round. Sclerae anicteric. Mucous membranes of the mouth are moist. Neck supple. No JVD or thyromegaly LUNGS: Respirations even and unlabored. Lungs essentially clear to auscultation bilaterally. HEART: Regular rate and rhythm. S1 and S2 heard. + Systolic murmur ABDOMEN: Soft. Nondistended. Nontender. EXTREMITIES: Normal range of motion. No clubbing or cyanosis. Peripheral pulses intact. No lower extremity edema NEUROLOGIC: Awake and alert. Oriented x 3. ASSESSMENT: Acute on chronic systolic congestive heart failure Chronic atrial fibrillation, on anticoagulation with Coumadin Nonischemic cardiomyopathy History of biventricular AICD implantation Valvular heart disease Chronic Kidney disease Hypertension Hyperlipidemia Diabetes mellitus PLAN: IV Lasix 40 mg every 12 hours Accurate I&O Daily weights Monitor kidney function Resume home cardiac medications Hold moe inhibitor secondary to soft blood pressure Further recommendations pending patient course Nurse practitioner note has been reviewed by physician. Signing provider agrees with the documented findings, assessment, and plan of care. Past Medical History Past Medical History: Cancer, Heart Failure, Diabetes Mellitus, Hyperlipidemia, Osteoarthritis (OA), Skin Disorder, Vascular Disorder Additional Past Medical History / Comment(s): basal cell skin cancer, rash on face, History of Any Multi-Drug Resistant Organisms: None Reported Past Surgical History: AICD, Appendectomy, Bladder Surgery, Bowel Resection, Cholecystectomy, Heart Catheterization, Hysterectomy, Pacemaker, Tonsillectomy, Tubal Ligation Additional Past Surgical History / Comment(s): venogram/fluoroscopy, neema cataracts, Past Anesthesia/Blood Transfusion Reactions: No Reported Reaction Type of Cardiac Device: AICD Device Placement Date:: 2007 Past Psychological History: No Psychological Hx Reported Smoking Status: Never smoker Past Alcohol Use History: None Reported Past Drug Use History: None Reported - Past Family History Father Family Medical History: Cancer Mother Family Medical History: Cancer Sister(s) Family Medical History: Cancer, Deep Vein Thrombosis (DVT) Additional Family Medical History / Comment(s): skin cancer Brother(s) History Unknown: Yes Family Medical History: Cancer Additional Family Medical History / Comment(s): skin cancer Medications and Allergies Home Medications Medication Instructions Recorded Confirmed Type Magnesium Chloride [Mag64] 64 mg PO DAILY@0700 10/22/15 11/21/20 History Simvastatin [Zocor] 20 mg PO HS 10/22/15 11/21/20 History Spironolactone [Aldactone] 12.5 mg PO DAILY@0900 10/22/15 11/21/20 History Amiodarone [Cordarone] 200 mg PO DAILY@0900 11/24/15 11/21/20 History Levothyroxine Sodium [Synthroid] 25 mcg PO DAILY@0700 03/30/18 11/21/20 History Warfarin [Coumadin] 1 mg PO SUTUTH@209903/30/18 11/21/20 History Warfarin [Coumadin] 1.5 mg PO MOWEFRSA@209903/30/18 11/21/20 History calcium polycarbophiL [Fibercon] 625 mg PO DAILY PRN 11/19/18 11/21/20 History Cetirizine HCl 10 mg PO DAILY PRN 11/21/20 11/21/20 History Doxycycline Hyclate 50 mg PO DAILY@0900 11/21/20 11/21/20 History Enalapril [Vasotec] 5 mg PO BID@0900,209911/21/20 11/21/20 History Furosemide [Lasix] 40 mg PO DAILY@0900 11/21/20 11/21/20 History Furosemide [Lasix] 40 mg PO Q48H 11/21/20 11/21/20 History Metoprolol Succinate [Toprol XL] 100 mg PO DAILY@0900 11/21/20 11/21/20 History glipiZIDE [Glucotrol] 5 mg PO BID@0900,209911/21/20 11/21/20 History Allergies Allergy/AdvReac Type Severity Reaction Status Date / Time quinidine Allergy Rash/Hives Verified 11/21/20 09:12 CLEAR PLASTIC TAPE Allergy Rash/Hives Uncoded 11/21/20 09:12 Physical Exam Vitals: Vital Signs Temp Pulse Pulse Resp BP BP Pulse Ox 11/21/20 10:23 18 98 11/21/20 10:21 98.3 F 70 18 97/54 97 11/21/20 09:52 98.3 F 72 18 107/65 98 11/21/20 08:09 70 18 117/67 11/21/20 07:37 70 18 122/63 98 11/21/20 05:59 70 20 128/66 95 11/21/20 05:55 70 20 142/70 98 11/21/20 05:32 70 20 140/73 97 11/21/20 04:52 70 20 159/92 96 11/21/20 04:51 28 H 11/21/20 03:56 98.3 F 69 20 147/85 93 L Intake and Output 11/20/20 11/21/20 11/21/20 22:59 06:59 14:59 Intake Total 240 Balance 240 Intake: Oral 240 Other: # Voids 0 Weight 70.307 kg 70.307 kg Results 11/21/20 04:34 11/21/20 04:34 Cardiac Enzymes 11/21/20 11/21/20 Range/Units 04:34 04:34 AST 40 H (14-36) U/L Troponin I <0.012 (0.000-0.034) ng/mL Coagulation 11/21/20 Range/Units 04:34 PT 24.0 H (9.0-12.0) sec APTT 27.8 (22.0-30.0) sec CBC 11/21/20 Range/Units 04:34 WBC 12.0 H (3.8-10.6) k/uL RBC 4.81 (3.80-5.40) m/uL Hgb 15.4 (11.4-16.0) gm/dL Hct 46.2 H (34.0-46.0) % Plt Count 235 (150-450) k/uL Comprehensive Metabolic Panel 11/21/20 Range/Units 04:34 Sodium 144 (137-145) mmol/L Potassium 3.7 (3.5-5.1) mmol/L Chloride 107 (98-107) mmol/L Carbon Dioxide 24 (22-30) mmol/L BUN 20 H (7-17) mg/dL Creatinine 1.70 H (0.52-1.04) mg/dL Glucose 253 H (74-99) mg/dL Calcium 9.2 (8.4-10.2) mg/dL AST 40 H (14-36) U/L ALT 21 (4-34) U/L Alkaline Phosphatase 64 (38-126) U/L Total Protein 7.0 (6.3-8.2) g/dL Albumin 4.1 (3.5-5.0) g/dL Current Medications Generic Name Dose Route Start Last Admin Trade Name Freq PRN Reason Stop Dose Admin Amiodarone HCl 200 mg 11/22/20 09:00 Amiodarone 200 Mg Tab PO DAILY@0900 [facility] Atorvastatin Calcium 10 mg 11/21/20 21:00 Atorvastatin 10 Mg Tab PO HS [facility] Calcium Polycarbophil 625 mg 11/21/20 11:29 Calcium Polycarbophil 625 Mg Tab PO DAILY PRN Constipation Doxycycline Monohydrate 50 mg 11/22/20 09:00 Doxycycline 50 Mg Cap PO DAILY@0900 [facility] Furosemide 40 mg 11/21/20 11:30 11/21/20 12:02 Furosemide 10 Mg/Ml 4 Ml Vial IV 40 mg Q12HR [facility] Administration Glipizide 5 mg 11/21/20 21:00 Glipizide 5 Mg Tab PO BID@0900,2100 [facility] Insulin Aspart 0 unit 11/21/20 12:30 11/21/20 12:05 Insulin Aspart (Novolog) 100 Unit/Ml Vial SQ 2 unit ACHS VITO Administration Protocol Levothyroxine Sodium 25 mcg 11/22/20 07:00 Levothyroxine 25 Mcg Tab PO DAILY@0700 [facility] Loratadine 10 mg 11/21/20 11:29 Loratadine 10 Mg Tab PO DAILY PRN Allergy Symptoms Magnesium Oxide 400 mg 11/22/20 07:00 Magnesium Oxide 400 Mg Tab PO DAILY@0700 [facility] Metoprolol Succinate 100 mg 11/22/20 09:00 Metoprolol Succinate (Er) 100 Mg Tab.Er.24h PO DAILY@0900 [facility] Miscellaneous Information 1 each 11/21/20 11:27 Warfarin Per Pharmacy MISCELLANE DIRECTED PRN Per Protocol Nitroglycerin 0.4 mg 11/21/20 04:49 11/21/20 05:32 Nitroglycerin Sl Tabs 0.4 Mg Tab SUBLINGUAL 0.4 mg Q5M PRN Administration Chest Pain Pantoprazole Sodium 40 mg 11/22/20 07:30 Pantoprazole 40 Mg Tablet PO AC-BRKFST [facility] Sodium Chloride 10 ml 11/21/20 09:00 11/21/20 10:50 Sodium Chloride 0.9% Flush 10 Ml Syringe IV Not Given BID [facility] Spironolactone 12.5 mg 11/22/20 09:00 Spironolactone 25 Mg Tab PO DAILY@0900 [facility] Warfarin Sodium 1 mg 11/23/20 21:00 Warfarin 1 Mg Tab PO SUTUTH@2100 [facility] Protocol Warfarin Sodium 1.5 mg 11/21/20 21:00 Warfarin 1.5 Mg Tab PO MOWEFRSA@2100 [facility] Protocol Intake and Output 11/20/20 11/21/20 11/21/20 22:59 06:59 14:59 Intake Total 240 Balance 240 Intake: Oral 240 Other: # Voids 0 Weight 70.307 kg 70.307 kg Patient Weight 11/22/20 06:59 Weight 70.307 kg 11/21/20 04:34 11/21/20 04:34
[2020-11-21 17:11] LABS: Glucose,Whole Blood 101 mg/dL (75-99)
[2020-11-21 20:13] LABS: Glucose,Whole Blood 149 mg/dL (75-99)
[2020-11-21] MEDS: ATORVASTATIN 10 MG TAB PO SCH (21:28)
[2020-11-21] MEDS: glipiZIDE 5 MG TAB PO SCH (21:28)
[2020-11-21] MEDS: WARFARIN 1.5 MG TAB PO SCH (21:30)
[2020-11-22 06:02] LABS: Glucose,Whole Blood 104 mg/dL (75-99)
[2020-11-22] MEDS: INSULIN ASPART (NovoLOG) 100 UNIT/ML VIAL SQ SCH ×2 (06:28→12:55)
[2020-11-22] MEDS: LEVOTHYROXINE 25 MCG TAB PO SCH (06:32)
[2020-11-22] MEDS: PANTOPRAZOLE 40 MG TABLET PO SCH (06:32)
[2020-11-22] MEDS: MAGNESIUM OXIDE 400 MG TAB PO SCH (06:32)
[2020-11-22 09:23] LABS: HCT 40.8 % (34.0-46.0); HGB 13.3 gm/dL (11.4-16.0); MCH 31.5 pg (25.0-35.0); MCHC 32.6 g/dL (31.0-37.0); MCV 96.8 fL (80.0-100.0); Mean Platelet Volume 8.7; Platelet Count 175 k/uL (150-450); RBC 4.21 m/uL (3.80-5.40); RDW 14.4 % (11.5-15.5); WBC 7.6 k/uL (3.8-10.6)
[2020-11-22 09:27] LABS: INR 2.6 (<1.2); Prothrombin Time 25.1 sec (9.0-12.0)
[2020-11-22 09:30] LABS: Albumin 3.8 g/dL (3.5-5.0); Potassium 3.5 mmol/L (3.5-5.1); Total Bilirubin 1.6 mg/dL (0.2-1.3); Total Protein 6.4 g/dL (6.3-8.2)
--- NOTE | 2020-11-22 09:49 | P.PN ---
Subjective Progress Note Date: 11/22/20 HISTORY OF PRESENT ILLNESS: This is a 85-year-old female with a past medical history significant for chronic atrial fibrillation on anticoagulation with Coumadin, nonischemic cardiomyopathy with previous biventricular AICD implantation, congestive heart failure, valvular heart disease, hypertension, hyperlipidemia, and diabetes mellitus. Patient follows in the office with Dr. Rucker. We have been asked to see the patient in consultation for congestive heart failure. Patient examined at the bedside. He presented to the hospital with a chief complaint of shortness of breath. She states over the past 2 days she has been having shortness of breath at night when she attempts to lay flat in bed. She denied any chest pain or pressure. She reports a slight increase in her lower extremity edema beyond her baseline. She also reports a 4 pound weight gain at home. Patient states she has been taking her medications as prescribed. At the time of my examination, the patient states her shortness of breath has significantly improved. EKG reveals ventricular paced rhythm with PVCs Chest xray congestive heart failure with pleural fluid and pulmonary edema which is new compared to old exam Laboratory data: WBC 12.0. Hemoglobin 15.4. Platelet count 235. D-dimer 0.73. Sodium 144. Potassium 3.7. BUN 20. Creatinine 1.70. Troponin negative 1. ProBNP 12,800. Current home cardiac medications include Coumadin 1 mg Tuesday and 1.5 mg Tuesday, Lasix 40 mg in the morning and 40 mg in the afternoon every other day, Aldactone 12.5 mg daily, Zocor 20 mg at night, metoprolol succinate 100 mg daily, enalapril 5 mg twice a day, and amiodarone 200 mg daily Most recent echocardiogram obtained in February 2020 revealed an ejection fraction 25%, mild aortic regurgitation, severe mitral regurgitation, moderate tricuspid regurgitation Cardiac catheterization history: 2007 revealing normal coronary arteries 11/22/2020 Patient examined this morning at the bedside. Patient denies chest pain or pressure. She reports that shortness of breath with exertion. She remains on IV Lasix. Creatinine 1.54 today. Blood pressure 102/64. PHYSICAL EXAM: VITAL SIGNS: Reviewed. GENERAL: Well-developed in no acute distress. HEENT: Head is normocephalic. Pupils are equal, round. Sclerae anicteric. Mucous membranes of the mouth are moist. Neck supple. No JVD or thyromegaly LUNGS: Respirations even and unlabored. Lungs diminished to auscultation bilaterally. HEART: Regular rate and rhythm. S1 and S2 heard. + Systolic murmur ABDOMEN: Soft. Nondistended. Nontender. EXTREMITIES: Normal range of motion. No clubbing or cyanosis. Peripheral pulses intact. Trace lower extremity edema NEUROLOGIC: Awake and alert. Oriented x 3. ASSESSMENT: Acute on chronic systolic congestive heart failure Chronic atrial fibrillation, on anticoagulation with Coumadin Nonischemic cardiomyopathy History of biventricular AICD implantation Valvular heart disease Chronic Kidney disease Hypertension Hyperlipidemia Diabetes mellitus PLAN: Continue IV Lasix. Anticipate transitioning to oral Lasix tomorrow. Accurate I&O Daily weights Monitor kidney function Hold moe inhibitor secondary to soft blood pressure Further recommendations pending patient course Nurse practitioner note has been reviewed by physician. Signing provider agrees with the documented findings, assessment, and plan of care. Objective - Vital Signs Vital signs: Vital Signs Temp 98.5 F 11/22/20 04:00 Pulse 72 11/22/20 04:00 Resp 17 11/22/20 04:00 BP 102/64 11/22/20 04:00 Pulse Ox 95 11/22/20 04:00 Intake & Output 11/21/20 11/22/20 11/22/20 18:59 06:59 18:59 Intake Total 480 240 0 Balance 480 240 0 Weight 70.307 kg 70.4 kg Intake: Oral 480 240 0 Other: # Voids 0 2 - Labs CBC & Chem 7: 11/22/20 08:39 11/22/20 08:39 Labs: Abnormal Lab Results - Last 24 Hours (Table) 11/21/20 11/21/20 11/21/20 Range/Units 11:17 16:51 20:12 PT (9.0-12.0) sec INR (<1.2) BUN (7-17) mg/dL Creatinine (0.52-1.04) mg/dL Glucose (74-99) mg/dL POC Glucose (mg/dL) 171 H 101 H 149 H (75-99) mg/dL Total Bilirubin (0.2-1.3) mg/dL AST (14-36) U/L 11/22/20 11/22/20 11/22/20 Range/Units 06:01 08:39 08:39 PT 25.1 H (9.0-12.0) sec INR 2.6 H (<1.2) BUN 26 H (7-17) mg/dL Creatinine 1.54 H (0.52-1.04) mg/dL Glucose 191 H (74-99) mg/dL POC Glucose (mg/dL) 104 H (75-99) mg/dL Total Bilirubin 1.6 H (0.2-1.3) mg/dL AST 47 H (14-36) U/L
[2020-11-22] MEDS: glipiZIDE 5 MG TAB PO SCH ×2 (10:18→21:02)
[2020-11-22] MEDS: FUROSEMIDE 10 MG/ML 4 ML VIAL IV SCH ×2 (10:18→21:01)
[2020-11-22] MEDS: AMIODARONE 200 MG TAB PO SCH (10:18)
[2020-11-22] MEDS: SPIRONOLACTONE 25 MG TAB PO SCH (10:18)
[2020-11-22] MEDS: METOPROLOL SUCCINATE (ER) 100 MG TAB.ER.24H PO SCH (10:18)
[2020-11-22] MEDS: DOXYCYCLINE 50 MG CAP PO SCH (10:18)
[2020-11-22 11:42] LABS: Glucose,Whole Blood 226 mg/dL (75-99)
--- NOTE | 2020-11-22 16:28 | P.PN ---
Subjective Progress Note Date: 11/22/20 HISTORY OF PRESENT ILLNESS This is an 85-year-old female patient of Dr. Solomon and Dr. Rucker with past medical history of nonischemic cardiomyopathy status post IV ICD, chronic persistent atrial fibrillation on long-term anticoagulation with Coumadin, mitral regurgitation, chronic systolic heart failure, hypertension, hyperlipidemia, diabetes mellitus type 2, chronic kidney disease stage IV, rosacea. Patient states that she has had shortness of breath at nighttime for t he past couple of days the worsened last evening. She also has had a 4-5 pound weight gain over 3-4 weeks. Her called 911 and patient was brought into the hospital for further evaluation. She was found to be afebrile, heart rate in the 60s and 70s, blood pressure 147/85, pulse ox 93% on room air. EKG is ventricular paced rhythm. WBC 12, hemoglobin 15.4, platelet count 235. I's were normal. BUN 20 and creatinine of 1.7. Blood sugar 253. INR 2.5. Total bilirubin 1.5 and AST 40, ALT 21, alkaline phosphatase 64. D-dimer 0.73. Troponin negative times 1. Lactic acid 4.3 and repeat 1.5. ProBNP 12,800. Coronal virus PCR not detected. Chest x-ray reveals heart failure with pleural fluid and pulmonary edema. 11/22 patient is doing much better, after being diuresis, IV Lasix is being given, has less shortness of breath, and is at baseline. Patient is currently on 1 sleepiness cannula, for which she is using the hospital only. She does not require any O2 at home. There is no lightheadedness and dizziness no chest pain, ongoing GI losses, pulse ox 93% to 95% 2 L nasal cannula vital signs stable, blood pressures 103/63, electrolytes are okay, INR is 2.6, creatinine is 1.5 from a previous of 1.7 patient was on glipizide, and levothyroxine, no medication changes at this time, but sugars between 101-226 postprandial. Patient is ambulating without any lightheadedness or dizziness, we will check for ambulatory pulse ox in the morning. REVIEW OF SYSTEMS Constitutional: No fever, no chills, no night sweats. Reports weight change. No weakness, reports fatigue no lethargy. No daytime sleepiness. EENT: No headache. No blurred vision or double vision, no loss of vision. No loss of Hearing, no ringing in the ears, no dizziness. No nasal drainage or congestion. No epistaxis. No sore throat. Lungs: Reports shortness of breath, cough, no sputum production. No wheezing. Cardiovascular: No chest pain, no lower extremity edema. No palpitations. No paroxysmal nocturnal dyspnea. Reports orthopnea. No lightheadedness or dizziness. No syncopal episodes. Abdominal: No abdominal pain. No nausea, vomiting. No diarrhea. No constipati on. No bloody or tarry stools.. No loss of appetite. Genitourinary: No dysuria, increased frequency, urgency. No urinary retention. Musculoskeletal: No myalgias. No muscle weakness, no gait dysfunction, no frequent falls. No back pain. No neck pain. Integumentary: No wounds, no lesions. No rash or pruritus. No unusual bruising. No change in hair or nails. Neurologic: No aphasia. No facial droop. No change in mentation. No head injury. No headache. No paralysis. No paresthesia. Psychiatric: No depression. No anxiety. No mood swings. Endocrine: No abnormal blood sugars. Reports weight change. No excessive sweating or thirst. No cold intolerance. Objective - Vital Signs Vital signs: Vital Signs Temp 98.2 F 11/22/20 12:57 Pulse 70 11/22/20 12:57 Resp 16 11/22/20 12:57 BP 103/63 11/22/20 12:57 Pulse Ox 95 11/22/20 12:57 Intake & Output 11/21/20 11/22/20 11/22/20 18:59 06:59 18:59 Intake Total 480 240 610 Output Total 300 Balance 480 240 310 Weight 70.307 kg 70.4 kg Intake: IV 10 Invasive Line 1 10 Oral 480 240 600 Output: Urine 300 Other: # Voids 0 2 1 - Constitutional General appearance: Present: cooperative, no acute distress - EENT Eyes: Present: EOMI, PERRLA, dentition normal, normal appearance ENT: Present: NA/AT, normal oropharynx - Neck Neck: Present: normal ROM - Respiratory Respiratory: bilateral: CTA, negative: diminished, dullness, rales - Cardiovascular Rhythm: regular Heart sounds: normal: S1, S2 Abnormal Heart Sounds: Present: systolic murmur - Gastrointestinal General gastrointestinal: Present: normal bowel sounds, soft - Integumentary Integumentary: Present: decreased turgor, normal - Neurologic Neurologic: Present: CNII-XII intact - Musculoskeletal Musculoskeletal: Present: gait normal, strength equal bilaterally - Labs CBC & Chem 7: 11/22/20 08:39 11/22/20 08:39 Labs: Abnormal Lab Results - Last 24 Hours (Table) 11/21/20 11/21/20 11/22/20 Range/Units 16:51 20:12 06:01 PT (9.0-12.0) sec INR (<1.2) BUN (7-17) mg/dL Creatinine (0.52-1.04) mg/dL Glucose (74-99) mg/dL POC Glucose (mg/dL) 101 H 149 H 104 H (75-99) mg/dL Total Bilirubin (0.2-1.3) mg/dL AST (14-36) U/L 11/22/20 11/22/20 11/22/20 Range/Units 08:39 08:39 11:41 PT 25.1 H (9.0-12.0) sec INR 2.6 H (<1.2) BUN 26 H (7-17) mg/dL Creatinine 1.54 H (0.52-1.04) mg/dL Glucose 191 H (74-99) mg/dL POC Glucose (mg/dL) 226 H (75-99) mg/dL Total Bilirubin 1.6 H (0.2-1.3) mg/dL AST 47 H (14-36) U/L Assessment and Plan Plan: 1. Acute toxic respiratory failure secondary to systolic heart failure. Patient has been started on Lasix 40 mg IV every 12 hours, cardiology consult appreciated. Continue Aldactone 12.5 mg daily, metoprolol succinate 100 mg daily, monitor I&O and daily weights, monitor electrolytes and renal function. Hold enalapril due to soft blood pressure. 2. Nonischemic cardiomyopathy status post ICD, stable. 3. Chronic persistent atrial fibrillation on long-term anticoagulation with Coumadin, pharmacy to dose. Continue amiodarone 200 mg daily, Toprol-XL 100 mg daily 4. History of mitral regurgitation. Echocardiogram has been ordered. 5. Hypertension. Continue metoprolol, amiodarone. 6. Hyperlipidemia. Continue atorvastatin 10 mg at bedtime. 7. Diabetes mellitus type 2. Start patient on NovoLog scale before meals and at bedtime, continue glipizide 5 mg twice daily. 8. Hypothyroidism. Continue levothyroxine 25 mg daily. 9. Rosacea. Continue doxycycline 50 mg daily. 10. GI prophylaxis. Protonix. 11. DVT prophylaxis. Coumadin. 12. COVID-19 testing negative. Patient has been hospitalized during a pandemic. Patient will be admitted to the hospital for a minimum of 2 night stay. DISCHARGE PLAN Most likely home with homecare.
[2020-11-22 16:31] LABS: Glucose,Whole Blood 50 mg/dL (75-99)
[2020-11-22 16:48] LABS: Glucose,Whole Blood 66 mg/dL (75-99)
[2020-11-22 17:01] LABS: Glucose,Whole Blood 78 mg/dL (75-99)
[2020-11-22] MEDS: WARFARIN 1.5 MG TAB PO SCH (21:02)
[2020-11-22] MEDS: ATORVASTATIN 10 MG TAB PO SCH (21:02)
[2020-11-22 21:03] LABS: Glucose,Whole Blood 162 mg/dL (75-99)
[2020-11-23 06:15] LABS: Glucose,Whole Blood 98 mg/dL (75-99)
[2020-11-23] MEDS: LEVOTHYROXINE 25 MCG TAB PO SCH (06:25)
[2020-11-23] MEDS: MAGNESIUM OXIDE 400 MG TAB PO SCH (06:25)
[2020-11-23] MEDS: PANTOPRAZOLE 40 MG TABLET PO SCH (06:25)
[2020-11-23 08:18] LABS: INR 2.8 (<1.2)
[2020-11-23 09:21] VITALS: RESP 16
[2020-11-23] MEDS: SPIRONOLACTONE 25 MG TAB PO SCH (09:24)
[2020-11-23] MEDS: DOXYCYCLINE 50 MG CAP PO SCH (09:24)
[2020-11-23] MEDS: AMIODARONE 200 MG TAB PO SCH (09:24)
[2020-11-23] MEDS: METOPROLOL SUCCINATE (ER) 100 MG TAB.ER.24H PO SCH (09:24)
[2020-11-23] MEDS: FUROSEMIDE 40 MG TAB PO SCH ×2 (09:25→17:19)
[2020-11-23] MEDS: glipiZIDE 5 MG TAB PO SCH ×2 (09:25→20:56)
--- NOTE | 2020-11-23 10:12 | P.PN ---
Subjective Progress Note Date: 11/23/20 HISTORY OF PRESENT ILLNESS: This is a 85-year-old female with a past medical history significant for chronic atrial fibrillation on anticoagulation with Coumadin, nonischemic cardiomyopathy with previous biventricular AICD implantation, congestive heart failure, valvular heart disease, hypertension, hyperlipidemia, and diabetes mellitus. Patient follows in the office with Dr. Rucker. We have been asked to see the patient in consultation for congestive heart failure. Patient examined at the bedside. He presented to the hospital with a chief complaint of shortness of breath. She states over the past 2 days she has been having shortness of breath at night when she attempts to lay flat in bed. She denied any chest pain or pressure. She reports a slight increase in her lower extremity edema beyond her baseline. She also reports a 4 pound weight gain at home. Patient states she has been taking her medications as prescribed. At the time of my examination, the patient states her shortness of breath has significantly improved. EKG reveals ventricular paced rhythm with PVCs Chest xray congestive heart failure with pleural fluid and pulmonary edema which is new compared to old exam Laboratory data: WBC 12.0. Hemoglobin 15.4. Platelet count 235. D-dimer 0.73. Sodium 144. Potassium 3.7. BUN 20. Creatinine 1.70. Troponin negative 1. ProBNP 12,800. Current home cardiac medications include Coumadin 1 mg Tuesday and 1.5 mg Tuesday, Lasix 40 mg in the morning and 40 mg in the afternoon every other day, Aldactone 12.5 mg daily, Zocor 20 mg at night, metoprolol succinate 100 mg daily, enalapril 5 mg twice a day, and amiodarone 200 mg daily Most recent echocardiogram obtained in February 2020 revealed an ejection fraction 25%, mild aortic regurgitation, severe mitral regurgitation, moderate tricuspid regurgitation Cardiac catheterization history: 2007 revealing normal coronary arteries 11/22/2020 Patient examined this morning at the bedside. Patient denies chest pain or pressure. She reports that shortness of breath with exertion. She remains on IV Lasix. Creatinine 1.54 today. Blood pressure 102/64. 11/23/2020 Patient examined this morning at the bedside. Patient denies chest pain or pressure. She states her shortness of breath has resolved. She remains on IV Lasix. She is hoping to be discharged home today. PHYSICAL EXAM: VITAL SIGNS: Reviewed. GENERAL: Well-developed in no acute distress. HEENT: Head is normocephalic. Pupils are equal, round. Sclerae anicteric. Mucous membranes of the mouth are moist. Neck supple. No JVD or thyromegaly LUNGS: Respirations even and unlabored. Lungs diminished to auscultation bilaterally. HEART: Regular rate and rhythm. S1 and S2 heard. + Systolic murmur ABDOMEN: Soft. Nondistended. Nontender. EXTREMITIES: Normal range of motion. No clubbing or cyanosis. Peripheral pulses intact. Trace lower extremity edema NEUROLOGIC: Awake and alert. Oriented x 3. ASSESSMENT: Acute on chronic systolic congestive heart failure Chronic atrial fibrillation, on anticoagulation with Coumadin Nonischemic cardiomyopathy History of biventricular AICD implantation Valvular heart disease Chronic Kidney disease Hypertension Hyperlipidemia Diabetes mellitus PLAN: Discontinue IV Lasix. Begin oral Lasix 40 mg twice a day Continue additional cardiac medications Patient is stable for discharge home today from a cardiac standpoint She is to follow up on an outpatient basis. Further recommendations pending patient course Nurse practitioner note has been reviewed by physician. Signing provider agrees with the documented findings, assessment, and plan of care. Objective - Vital Signs Vital signs: Vital Signs Temp 97.7 F 11/23/20 08:30 Pulse 70 11/23/20 08:30 Resp 16 11/23/20 08:30 BP 112/71 11/23/20 08:30 Pulse Ox 98 11/23/20 04:00 Intake & Output 11/22/20 11/23/20 11/23/20 18:59 06:59 18:59 Intake Total 880 250 120 Output Total 1025 1250 Balance -145 -1000 120 Weight 70.2 kg Intake: IV 20 10 Invasive Line 1 20 10 Oral 860 240 120 Output: Urine 1025 1250 Other: # Voids 1 1 # Bowel Movements 0 - Labs CBC & Chem 7: 11/22/20 08:39 11/22/20 08:39 Labs: Abnormal Lab Results - Last 24 Hours (Table) 11/22/20 11/22/20 11/22/20 Range/Units 11:41 16:30 16:46 PT (9.0-12.0) sec INR (<1.2) POC Glucose (mg/dL) 226 H 50 L 66 L (75-99) mg/dL 11/22/20 11/23/20 Range/Units 20:16 07:34 PT 27.0 H (9.0-12.0) sec INR 2.8 H (<1.2) POC Glucose (mg/dL) 162 H (75-99) mg/dL
[2020-11-23 11:48] LABS: Glucose,Whole Blood 190 mg/dL (75-99)
--- NOTE | 2020-11-23 14:18 | P.PN ---
Subjective Progress Note Date: 11/23/20 HISTORY OF PRESENT ILLNESS This is an 85-year-old female patient of Dr. Solomon and Dr. Rucker with past medical history of nonischemic cardiomyopathy status post IV ICD, chronic persistent atrial fibrillation on long-term anticoagulation with Coumadin, mitral regurgitation, chronic systolic heart failure, hypertension, hyperlipidemia, diabetes mellitus type 2, chronic kidney disease stage IV, rosacea. Patient states that she has had shortness of breath at nighttime for t he past couple of days the worsened last evening. She also has had a 4-5 pound weight gain over 3-4 weeks. Her called 911 and patient was brought into the hospital for further evaluation. She was found to be afebrile, heart rate in the 60s and 70s, blood pressure 147/85, pulse ox 93% on room air. EKG is ventricular paced rhythm. WBC 12, hemoglobin 15.4, platelet count 235. I's were normal. BUN 20 and creatinine of 1.7. Blood sugar 253. INR 2.5. Total bilirubin 1.5 and AST 40, ALT 21, alkaline phosphatase 64. D-dimer 0.73. Troponin negative times 1. Lactic acid 4.3 and repeat 1.5. ProBNP 12,800. Coronal virus PCR not detected. Chest x-ray reveals heart failure with pleural fluid and pulmonary edema. 11/22 patient is doing much better, after being diuresis, IV Lasix is being given, has less shortness of breath, and is at baseline. Patient is currently on 1 sleepiness cannula, for which she is using the hospital only. She does not require any O2 at home. There is no lightheadedness and dizziness no chest pain, ongoing GI losses, pulse ox 93% to 95% 2 L nasal cannula vital signs stable, blood pressures 103/63, electrolytes are okay, INR is 2.6, creatinine is 1.5 from a previous of 1.7 patient was on glipizide, and levothyroxine, no medication changes at this time, but sugars between 101-226 postprandial. Patient is ambulating without any lightheadedness or dizziness, we will check for ambulatory pulse ox in the morning. 11/23: Patient's doing much better, no CHF symptoms at this time, ambulatory pulse ox is 89%, we are going to discharge with home O2, most likely in the morning. Discharge planning is a available for the weekend, no chest pain no sh ortness of breath, need nocturnal pulse ox in the future, prior to discontinuing oxygen. disCharge in a.m. REVIEW OF SYSTEMS Constitutional: No fever, no chills, no night sweats. Reports weight change. No weakness, reports fatigue no lethargy. No daytime sleepiness. EENT: No headache. No blurred vision or double vision, no loss of vision. No loss of Hearing, no ringing in the ears, no dizziness. No nasal drainage or congestion. No epistaxis. No sore throat. Lungs: Reports shortness of breath, cough, no sputum production. No wheezing. Cardiovascular: No chest pain, no lower extremity edema. No palpitations. No paroxysmal nocturnal dyspnea. Reports orthopnea. No lightheadedness or dizziness. No syncopal episodes. Abdominal: No abdominal pain. No nausea, vomiting. No diarrhea. No constipation. No bloody or tarry stools.. No loss of appetite. Genitourinary: No dysuria, increased frequency, urgency. No urinary retention. Musculoskeletal: No myalgias. No muscle weakness, no gait dysfunction, no frequent falls. No back pain. No neck pain. Integumentary: No wounds, no lesions. No rash or pruritus. No unusual bruising. No change in hair or nails. Neurologic: No aphasia. No facial droop. No change in mentation. No head injury. No headache. No paralysis. No paresthesia. Psychiatric: No depression. No anxiety. No mood swings. Endocrine: No abnormal blood sugars. Reports weight change. No excessive sweating or thirst. No cold intolerance. Objective - Vital Signs Vital signs: Vital Signs Temp 97.6 F 11/23/20 12:00 Pulse 69 11/23/20 12:00 Resp 16 11/23/20 12:00 BP 109/68 11/23/20 12:00 Pulse Ox 90 L 11/23/20 12:00 Intake & Output 11/22/20 11/23/20 11/23/20 18:59 06:59 18:59 Intake Total 880 250 400 Output Total 1025 1250 Balance -145 -1000 400 Weight 70.2 kg Intake: IV 20 10 20 Invasive Line 1 20 10 20 Oral 860 240 380 Output: Urine 1025 1250 Other: # Voids 1 1 # Bowel Movements 0 - Constitutional General appearance: Present: cooperative, no acute distress - EENT Eyes: Present: PERRLA - Labs CBC & Chem 7: 11/22/20 08:39 11/22/20 08:39 Labs: Abnormal Lab Results - Last 24 Hours (Table) 11/22/20 11/22/20 11/22/20 Range/Units 16:30 16:46 20:16 PT (9.0-12.0) sec INR (<1.2) POC Glucose (mg/dL) 50 L 66 L 162 H (75-99) mg/dL 11/23/20 11/23/20 Range/Units 07:34 11:46 PT 27.0 H (9.0-12.0) sec INR 2.8 H (<1.2) POC Glucose (mg/dL) 190 H (75-99) mg/dL Assessment and Plan Plan: 1. Acute toxic respiratory failure secondary to systolic heart failure. Patient has been started on Lasix 40 mg IV every 12 hours, cardiology consult appreciated. Continue Aldactone 12.5 mg daily, metoprolol succinate 100 mg héctor y, monitor I&O and daily weights, monitor electrolytes and renal function. Hold enalapril due to soft blood pressure. 2. Nonischemic cardiomyopathy status post ICD, stable. 3. Chronic persistent atrial fibrillation on long-term anticoagulation with Coumadin, pharmacy to dose. Continue amiodarone 200 mg daily, Toprol-XL 100 mg daily 4. History of mitral regurgitation. Echocardiogram has been ordered. 5. Hypertension. Continue metoprolol, amiodarone. 6. Hyperlipidemia. Continue atorvastatin 10 mg at bedtime. 7. Diabetes mellitus type 2. Start patient on NovoLog scale before meals and at bedtime, continue glipizide 5 mg twice daily. 8. Hypothyroidism. Continue levothyroxine 25 mg daily. 9. Rosacea. Continue doxycycline 50 mg daily. 10. GI prophylaxis. Protonix. 11. DVT prophylaxis. Coumadin. 12. COVID-19 testing negative. Patient has been hospitalized during a pandemic. Patient will be admitted to the hospital for a minimum of 2 night stay. acute hypoxemic resp failure, we will recheck O2, with premature pulse ox, in the morning, has decompensated, requiring 2 L of O2 based on current test. DISCHARGE PLAN Most likely home with homecare.
[2020-11-23 16:46] LABS: Glucose,Whole Blood 116 mg/dL (75-99)
[2020-11-23] MEDS: ATORVASTATIN 10 MG TAB PO SCH (20:56)
[2020-11-23 20:57] LABS: Glucose,Whole Blood 110 mg/dL (75-99)
[2020-11-23] MEDS ORDERED: WARFARIN 1 MG TAB PO SCH (21:00)
[2020-11-24] MEDS: MAGNESIUM OXIDE 400 MG TAB PO SCH (05:45)
[2020-11-24] MEDS: LEVOTHYROXINE 25 MCG TAB PO SCH (05:46)
[2020-11-24] MEDS: PANTOPRAZOLE 40 MG TABLET PO SCH (05:46)
[2020-11-24 05:47] VITALS: PULSE 73; TEMP 97.9
[2020-11-24 06:17] LABS: Glucose,Whole Blood 102 mg/dL (75-99)
[2020-11-24 08:37] LABS: INR 2.5 (<1.2)
[2020-11-24] MEDS: glipiZIDE 5 MG TAB PO SCH (09:07)
[2020-11-24] MEDS: DOXYCYCLINE 50 MG CAP PO SCH (09:07)
[2020-11-24] MEDS: AMIODARONE 200 MG TAB PO SCH (09:07)
[2020-11-24] MEDS: SPIRONOLACTONE 25 MG TAB PO SCH (09:07)
[2020-11-24] MEDS: METOPROLOL SUCCINATE (ER) 100 MG TAB.ER.24H PO SCH (09:08)
[2020-11-24] MEDS: FUROSEMIDE 40 MG TAB PO SCH (09:08)
--- NOTE | 2020-11-24 10:17 | P.DS ---
Providers Date of admission: 11/21/20 07:46 Expected date of discharge: 11/24/20 Attending physician: Alberto Solomon Consults: 11/21/20 07:46 Consult Physician Routine Consulting Provider: Saran Snowden Consult Reason/Comments: CHF exacerbation Do you want consulting provider notified?: Yes [facility] Course: HISTORY OF PRESENT ILLNESS This is an 85-year-old female patient of Dr. Solomon and Dr. Rucker with past medical history of nonischemic cardiomyopathy status post IV ICD, chronic persistent atrial fibrillation on long-term anticoagulation with Coumadin, mitral regurgitation, chronic systolic heart failure, hypertension, hyperlipidemia, diabetes mellitus type 2, chronic kidney disease stage IV, rosacea. Patient states that she has had shortness of breath at nighttime for the past couple of days the worsened last evening. She also has had a 4-5 pound weight gain over 3-4 weeks. Her called 911 and patient was brought into the hospital for further evaluation. She was found to be afebrile, heart rate in the 60s and 70s, blood pressure 147/85, pulse ox 93% on room air. EKG is ventricular paced rhythm. WBC 12, hemoglobin 15.4, platelet count 235. I's were normal. BUN 20 and creatinine of 1.7. Blood sugar 253. INR 2.5. Total bilirubin 1.5 and AST 40, ALT 21, alkaline phosphatase 64. D-dimer 0.73. Troponin negative times 1. Lactic acid 4.3 and repeat 1.5. ProBNP 12,800. Coronal virus PCR not detected. Chest x-ray reveals heart failure with pleural fluid and pulmonary edema. 11/22 patient is doing much better, after being diuresis, IV Lasix is being given, has less shortness of breath, and is at baseline. Patient is currently on 1 sleepiness cannula, for which she is using the hospital only. She does not require any O2 at home. There is no lightheadedness and dizziness no chest pain, ongoing GI losses, pulse ox 93% to 95% 2 L nasal cannula vital signs stable, blood pressures 103/63, electrolytes are okay, INR is 2.6, creatinine is 1.5 from a previous of 1.7 patient was on glipizide, and levothyroxine, no medication changes at this time, but sugars between 101-226 postprandial. Patient is ambulating without any lightheadedness or dizziness, we will check for ambulatory pulse ox in the morning. 11/23: Patient's doing much better, no CHF symptoms at this time, ambulatory pulse ox is 89%, we are going to discharge with home O2, most likely in the morning. Discharge planning is a available for the weekend, no chest pain no shortness of breath, need nocturnal pulse ox in the future, prior to discontinuing oxygen. disCharge in a.m. 11/24: Patient states that her breathing status is stable at rest. Family is at bedside. She denies having any chest pain. No lower extremity edema. Home oxygen test has been performed and patient was at 87% on room air while ambulating. tax adjuster arranging for home oxygen therapy. She has been afebrile, heart rate 70, blood pressure 95/59. INR today is at 2.5. Patient will be discharged home today in stable condition. DISCHARGE DIAGNOSES 1. Acute hypoxic respiratory failure secondary to acute on chronic systolic heart failure. 2. Nonischemic cardiomyopathy status post ICD. 3. Chronic persistent atrial fibrillation on long-term anticoagulation with Coumadin. 4. History of mitral regurgitation. 5. Hypertension. 6. Hyperlipidemia. 7. Diabetes mellitus type 2. 8. Hypothyroidism. 9. Rosacea. 10. Chronic hypoxic respiratory failure. 11. COVID-19 testing negative. DISCHARGE PLAN Most likely home with homecare. Greater than 35 minutes utilized in discharge process for this patient. Impression and plan of care have been directed as dictated by the signing physician. Nicole Park nurse practitioner acting as scribe for signing physician. Patient Condition at Discharge: Good Plan - Discharge Summary Discharge Rx Participant: No New Discharge Prescriptions: New Furosemide [Lasix] 40 mg PO BID@0900,1600 #60 tab Continue Spironolactone [Aldactone] 12.5 mg PO DAILY@0900 Simvastatin [Zocor] 20 mg PO HS Magnesium Chloride [Mag64] 64 mg PO DAILY@0700 Amiodarone [Cordarone] 200 mg PO DAILY@0900 Levothyroxine Sodium [Synthroid] 25 mcg PO DAILY@0700 Warfarin [Coumadin] 1 mg PO SUTUTH@2100 Warfarin [Coumadin] 1.5 mg PO MOWEFRSA@2100 calcium polycarbophiL [Fibercon] 625 mg PO DAILY PRN PRN Reason: Constipation Doxycycline Hyclate 50 mg PO DAILY@0900 glipiZIDE [Glucotrol] 5 mg PO BID@899,2099 Cetirizine HCl 10 mg PO DAILY PRN PRN Reason: Allergy Symptoms Metoprolol Succinate [Toprol XL] 100 mg PO DAILY@0900 Discontinued Enalapril [Vasotec] 5 mg PO BID@899,2099 Furosemide [Lasix] 40 mg PO Q48H Furosemide [Lasix] 40 mg PO DAILY@0900 Discharge Medication List Magnesium Chloride [Mag64] 64 mg PO DAILY@0710/22/15 [History] Simvastatin [Zocor] 20 mg PO HS 10/22/15 [History] Spironolactone [Aldactone] 12.5 mg PO DAILY@89910/22/15 [History] Amiodarone [Cordarone] 200 mg PO DAILY@89911/24/15 [History] Levothyroxine Sodium [Synthroid] 25 mcg PO DAILY@69903/30/18 [History] Warfarin [Coumadin] 1 mg PO SUTUTH@209903/30/18 [History] Warfarin [Coumadin] 1.5 mg PO MOWEFRSA@209903/30/18 [History] calcium polycarbophiL [Fibercon] 625 mg PO DAILY PRN 11/19/18 [History] Cetirizine HCl 10 mg PO DAILY PRN 11/21/20 [History] Doxycycline Hyclate 50 mg PO DAILY@0911/21/20 [History] Metoprolol Succinate [Toprol XL] 100 mg PO DAILY@0911/21/20 [History] glipiZIDE [Glucotrol] 5 mg PO BID@09,209911/21/20 [History] Furosemide [Lasix] 40 mg PO BID@0900,1600 #60 tab 11/24/20 [Rx] Follow up Appointment(s)/Referral(s): [facility],Equipment [NON-STAFF] - 1-2 Days (Supplier of home oxygen) Alberto Solomon MD [Primary Care Provider] - 11/28/20 10:00 am (APPOINTMENT IS WITH ISABELLA BEARD) Ivan Rucker MD [STAFF PHYSICIAN] - 12/02/20 2:30 pm (APPOINTMENT IS AT MAIN OFFICE.) Patient Instructions/Handouts: Heart Failure (DC), Using Oxygen at Home (DC), Low-Sodium Diet (DC) Discharge Disposition: HOME SELF-CARE
[2020-11-24 12:08] VITALS: BP 95/59
== END 2020-11-24 12:42 | disposition home or self-care (01) | DRG 291 ==
LOC: EC 03:55 → 3SCARD 07:46
PROVIDERS: ADMIT Internal Medicine Geriatric Medicine; ATTEND Internal Medicine Geriatric Medicine
DX: I13.0 Hypertensive heart and chronic kidney disease with heart failure and stage 1 through stage 4 chronic kidney disease, or unspecified chronic kidney disease (principal); I50.23 Acute on chronic systolic (congestive) heart failure; J96.21 Acute and chronic respiratory failure with hypoxia; I48.19 Other persistent atrial fibrillation; N18.4 Chronic kidney disease, stage 4 (severe); E11.22 Type 2 diabetes mellitus with diabetic chronic kidney disease; I08.3 Combined rheumatic disorders of mitral, aortic and tricuspid valves; Z20.822 Contact with and (suspected) exposure to COVID-19; E03.9 Hypothyroidism, unspecified; R01.1 Cardiac murmur, unspecified; I49.3 Ventricular premature depolarization; M19.90 Unspecified osteoarthritis, unspecified site; I42.8 Other cardiomyopathies; E78.5 Hyperlipidemia, unspecified; L71.9 Rosacea, unspecified; Z79.01 Long term (current) use of anticoagulants; Z79.84 Long term (current) use of oral hypoglycemic drugs; Z79.890 Hormone replacement therapy; Z79.899 Other long term (current) drug therapy; Z85.828 Personal history of other malignant neoplasm of skin; Z90.710 Acquired absence of both cervix and uterus; Z95.810 Presence of automatic (implantable) cardiac defibrillator; Z88.8 Allergy status to other drugs, medicaments and biological substances; Z91.048 Other nonmedicinal substance allergy status
CPT/HCPCS: 36415; 71046; 80053; 83605; 83880; 84484; 85025; 85027; 85379; 85610; 85730; 87635; 93005; 96374; 99285

== ENCOUNTER 2020-12-19 23:01 | Inpatient (IN) | payer MEDICARE, BC ==
[2020-12-19] MEDS ORDERED: IPRATROPIUM-ALBUTEROL 3 ML NEB INHALATION STA (23:40)
--- NOTE | 2020-12-19 23:41 | ED ---
SOB HPI - General Chief Complaint: Shortness of Breath Stated Complaint: AMOS Time Seen by Provider: 12/19/20 23:38 Source: patient, EMS Mode of arrival: EMS - Related Data Home Medications Medication Instructions Recorded Confirmed Magnesium Chloride [Mag64] 64 mg PO DAILY@0700 10/22/15 11/21/20 Simvastatin [Zocor] 20 mg PO HS 10/22/15 11/21/20 Spironolactone [Aldactone] 12.5 mg PO DAILY@0900 10/22/15 11/21/20 Amiodarone [Cordarone] 200 mg PO DAILY@0900 11/24/15 11/21/20 Levothyroxine Sodium [Synthroid] 25 mcg PO DAILY@0700 03/30/18 11/21/20 Warfarin [Coumadin] 1 mg PO SUTUTH@209903/30/18 11/21/20 Warfarin [Coumadin] 1.5 mg PO MOWEFRSA@209903/30/18 11/21/20 calcium polycarbophiL [Fibercon] 625 mg PO DAILY PRN 11/19/18 11/21/20 Cetirizine HCl 10 mg PO DAILY PRN 11/21/20 11/21/20 Doxycycline Hyclate 50 mg PO DAILY@0900 11/21/20 11/21/20 Metoprolol Succinate [Toprol XL] 100 mg PO DAILY@0900 11/21/20 11/21/20 glipiZIDE [Glucotrol] 5 mg PO BID@0900,2100 11/21/20 11/21/20 Previous Rx's Medication Instructions Recorded Furosemide [Lasix] 40 mg PO BID@0900,1600 #60 tab 11/24/20 Allergies Allergy/AdvReac Type Severity Reaction Status Date / Time quinidine Allergy Rash/Hives Verified 11/21/20 09:12 CLEAR PLASTIC TAPE Allergy Rash/Hives Uncoded 11/21/20 09:12 Review of Systems ROS Statement: Those systems with pertinent positive or pertinent negative responses have been documented in the HPI. ROS Other: All systems not noted in ROS Statement are negative. Past Medical History Past Medical History: Cancer, Heart Failure, Diabetes Mellitus, Hyperlipidemia, Osteoarthritis (OA), Skin Disorder, Vascular Disorder Additional Past Medical History / Comment(s): basal cell skin cancer, rash on face, History of Any Multi-Drug Resistant Organisms: None Reported Past Surgical History: AICD, Appendectomy, Bladder Surgery, Bowel Resection, Cholecystectomy, Heart Catheterization, Hysterectomy, Tonsillectomy, Tubal Ligation Additional Past Surgical History / Comment(s): venogram/fluoroscopy, neema cataracts, Past Anesthesia/Blood Transfusion Reactions: No Reported Reaction Type of Cardiac Device: AICD Device Placement Date:: 2007 Past Psychological History: No Psychological Hx Reported Smoking Status: Never smoker Past Alcohol Use History: None Reported Past Drug Use History: None Reported - Past Family History Father Family Medical History: Cancer Mother Family Medical History: Cancer Sister(s) Family Medical History: Cancer, Deep Vein Thrombosis (DVT) Additional Family Medical History / Comment(s): skin cancer Brother(s) History Unknown: Yes Family Medical History: Cancer Additional Family Medical History / Comment(s): skin cancer Course Vital Signs 12/19/20 12/19/20 12/19/20 23:04 23:18 23:21 Temperature 97.4 F L Pulse Rate 73 70 Respiratory 24 22 24 Rate Blood Pressure 139/71 O2 Sat by Pulse 86 L 90 L Oximetry 12/19/20 12/19/20 23:25 23:29 Temperature Pulse Rate 70 70 Respiratory 32 H 23 Rate Blood Pressure O2 Sat by Pulse 92 L 93 L Oximetry Medical Decision Making - EKG Data -: EKG Interpreted by Me (EKG Shows a paced rhythm 70 QRS 146 QTc 501) Disposition Referrals: Alberto Solomon MD [Primary Care Provider] - 1-2 days
[2020-12-20] MEDS: SODIUM CHLORIDE 0.9% 1,000 ML IV STA ×2 (00:15→01:38)
--- NOTE | 2020-12-20 00:16 | XR ---
EXAMINATION TYPE: XR chest 1V portable DATE OF EXAM: 12/20/2020 COMPARISON: NONE HISTORY: Short of breath TECHNIQUE: Single view FINDINGS: There is pulmonary vascular congestion. There is pulmonary interstitial and airspace edema. There is left axillary pacemaker. There is blunting of the costophrenic angles. IMPRESSION: Congestive heart failure with pleural effusions. Pleural fluid increased compared to old exam.
[2020-12-20 00:24] LABS: Basophils % (A) 0 %; Eosinophils % (A) 0 %; HGB 14.9 gm/dL (11.4-16.0); Lymphocytes # (A) 1.1 k/uL (1.0-4.8); Lymphocytes % (A) 12 %; MCH 31.6 pg (25.0-35.0); MCHC 33.8 g/dL (31.0-37.0); MCV 93.5 fL (80.0-100.0); Mean Platelet Volume 8.8; Monocytes # (A) 0.2 k/uL (0-1.0); Monocytes % (A) 2 %; Neutrophils # (A) 7.9 k/uL (1.3-7.7); Neutrophils % (A) 84 %; Platelet Count 170 k/uL (150-450); RBC 4.71 m/uL (3.80-5.40); RDW 14.7 % (11.5-15.5); WBC 9.3 k/uL (3.8-10.6)
[2020-12-20 00:34] LABS: INR 2.8 (<1.2); Partial Thromboplastin Time 30.1 sec (22.0-30.0); Prothrombin Time 27.2 sec (9.0-12.0)
[2020-12-20 01:19] LABS: Albumin 3.9 g/dL (3.5-5.0); C Reactive Protein 1.2 mg/dL (<1.0); Calcium 9.2 mg/dL (8.4-10.2); Magnesium 2.2 mg/dL (1.6-2.3); Potassium 3.7 mmol/L (3.5-5.1); Total Bilirubin 1.3 mg/dL (0.2-1.3); Total Protein 6.7 g/dL (6.3-8.2)
[2020-12-20] MEDS: FUROSEMIDE 10 MG/ML 4 ML VIAL IV SCH ×3 (01:38→17:04)
--- NOTE | 2020-12-20 03:58 | P.PN ---
Progress Note - Text Progress Note Date: 12/20/20 Patient presented with difficulty breathing currently improved with BiPAP and IV Lasix Discontinue IV fluid hydration Partial medication reconciliation performed await confirmation of the rest of her medications
[2020-12-20] MEDS ORDERED: LORATADINE 10 MG TAB PO PRN (10:35)
[2020-12-20 12:39] LABS: Basophils % (A) 0 %; Eosinophils % (A) 0 %; HGB 13.7 gm/dL (11.4-16.0); Lymphocytes # (A) 0.5 k/uL (1.0-4.8); Lymphocytes % (A) 7 %; MCH 30.6 pg (25.0-35.0); MCHC 31.9 g/dL (31.0-37.0); MCV 95.7 fL (80.0-100.0); Mean Platelet Volume 8.7; Monocytes # (A) 0.1 k/uL (0-1.0); Monocytes % (A) 2 %; Neutrophils # (A) 6.4 k/uL (1.3-7.7); Neutrophils % (A) 90 %; Platelet Count 151 k/uL (150-450); RBC 4.49 m/uL (3.80-5.40); WBC 7.1 k/uL (3.8-10.6)
[2020-12-20 12:45] LABS: INR 2.7 (<1.2)
[2020-12-20 13:02] LABS: ALT 24 U/L (4-34); AST 33 U/L (14-36); African American GFR (CKD) 29 (>60 ml/min/1.73 sqM); Albumin 3.6 g/dL (3.5-5.0); Albumin/Globulin Ratio 1.4; Alkaline Phosphatase 55 U/L (38-126); Anion Gap 13 mmol/L; Blood Urea Nitrogen 35 mg/dL (7-17); Calcium 9.1 mg/dL (8.4-10.2); Carbon Dioxide 23 mmol/L (22-30); Chloride 104 mmol/L (98-107); Globulin 2.6 g/dL; Glucose 307 mg/dL (74-99); Non-African American GFR(CKD) 26 (>60 ml/min/1.73 sqM); Potassium 4.2 mmol/L (3.5-5.1); Sodium 140 mmol/L (137-145); Total Bilirubin 1.4 mg/dL (0.2-1.3); Total Protein 6.2 g/dL (6.3-8.2)
--- NOTE | 2020-12-20 13:29 | P.HPIM ---
History of Present Illness H&P Date: 12/20/20 HISTORY OF PRESENT ILLNESS This is an 85-year-old female patient of Dr. Solomon and Dr. Rucker with past medical history of nonischemic cardiomyopathy status post IV ICD, chronic persistent atrial fibrillation on long-term anticoagulation with Coumadin, mitral regurgitation, chronic systolic heart failure, hypertension, hyperlipidemia, diabetes mellitus type 2, chronic kidney disease stage IV, rosacea. Patient states that she has had shortness of breath at nighttime for the past couple of days the worsened last evening. Her called 911 and patient was brought into the hospital for further evaluation. She was found to be afebrile, heart rate in the 60s and 70s, blood pressure 147/85, pulse ox 93% on room air. EKG is ventricular paced rhythm. WBC 12, hemoglobin 15.4, platelet count 235. I's were normal. BUN 20 and creatinine of 1.7. Blood sugar 253. INR 2.5. Total bilirubin 1.5 and AST 40, ALT 21, alkaline phosphatase 64. D-dimer 0.73. Troponin negative times 1. Lactic acid 4.3 and repeat 1.5. ProBNP 12,800. Coronal virus PCR not detected. Chest x-ray reveals heart failure with pleural fluid and pulmonary edema. REVIEW OF SYSTEMS Constitutional: No fever, no chills, no night sweats. Reports weight change. N o weakness, reports fatigue no lethargy. No daytime sleepiness. EENT: No headache. No blurred vision or double vision, no loss of vision. No loss of Hearing, no ringing in the ears, no dizziness. No nasal drainage or congestion. No epistaxis. No sore throat. Lungs: Reports shortness of breath, cough, no sputum production. No wheezing. Cardiovascular: No chest pain, no lower extremity edema. No palpitations. No paroxysmal nocturnal dyspnea. Reports orthopnea. No lightheadedness or dizz iness. No syncopal episodes. Abdominal: No abdominal pain. No nausea, vomiting. No diarrhea. No constipation. No bloody or tarry stools.. No loss of appetite. Genitourinary: No dysuria, increased frequency, urgency. No urinary retention. Musculoskeletal: No myalgias. No muscle weakness, no gait dysfunction, no frequent falls. No back pain. No neck pain. Integumentary: No wounds, no lesions. No rash or pruritus. No unusual bruising. No change in hair or nails. Neurologic: No aphasia. No facial droop. No change in mentation. No head injury. No headache. No paralysis. No paresthesia. Psychiatric: No depression. No anxiety. No mood swings. Endocrine: No abnormal blood sugars. Reports weight change. No excessive sweating or thirst. No cold intolerance. SOCIAL HISTORY Patient is a lifelong nonsmoker, no alcohol use, marijuana use or illicit drug use. She does not have CPAP, O2, nebulizer. She worked in [employer]-type jobs in the past and is retired. FAMILY HISTORY Father at age 67 from kidney cancer. Mother at age 78 with history of breast cancer and also a female cancer. Patient has 1 brother that passed from COPD at age 69. She has 2 sisters one passed at age 45 from breast cancer and one at age 79 for Alzheimer's dementia. Patient has a total of 6 children. 2 were born stillborn. She has one son that is passed from a CVA brain bleed. She has 3 daughters and one has Covid one has problems due to motor vehicle accident. PHYSICAL EXAMINATION Gen: This is an 85-year-old female. She is resting in bed and appears to be comfortable and in no acute distress. HEENT: Head is atraumatic, normocephalic. Pupils equal, round. Sclerae is anicteric. NECK: Supple. No JVD. No lymphadenopathy. No thyromegaly. LUNGS: Clear to auscultation. No wheezes or rhonchi. No intercostal retractions. HEART: Irregularly irregular rhythm with systolic murmur. ABDOMEN: Soft. Bowel sounds are present. No masses. No tenderness. EXTREMITIES: No pedal edema. No calf tenderness. NEUROLOGICAL: Patient is awake, alert and oriented x3. Cranial nerves 2 through 12 are grossly intact. ASSESSMENT AND PLAN 1. Acute hypoxic respiratory failure secondary to systolic heart failure. Patient has been started on Lasix 40 mg IV every 8 hours, cardiology consult appreciated. Continue Aldactone 12.5 mg daily, metoprolol succinate 100 mg daily, hydralazine 25 mg by mouth twice a day, monitor I&O and daily weights, monitor electrolytes and renal function. 2. Nonischemic cardiomyopathy status post ICD, stable. 3. Chronic persistent atrial fibrillation on long-term anticoagulation with Coumadin, pharmacy to dose. Continue amiodarone 200 mg daily, Toprol-XL 100 mg daily 4. History of mitral regurgitation. Echocardiogram has been ordered. 5. Hypertension. Continue metoprolol, amiodarone. 6. Hyperlipidemia. Continue atorvastatin 10 mg at bedtime. 7. Diabetes mellitus type 2. Start patient on NovoLog scale before meals and at bedtime, continue glipizide 5 mg twice daily. 8. Hypothyroidism. Continue levothyroxine 25 mg daily. 9. Rosacea. Continue doxycycline 50 mg daily. 10. GI prophylaxis. Protonix. 11. DVT prophylaxis. Coumadin. 12. COVID-19 testing negative. Patient has been hospitalized during a pandemic. Patient will be admitted to the hospital for a minimum of 2 night stay. DISCHARGE PLAN Most likely home with homecare. Impression and plan of care have been directed as dictated by the signing physician. Abbie He nurse practitioner acting as scribe for signing martiat roman. Past Medical History Past Medical History: Cancer, Heart Failure, Diabetes Mellitus, Hyperlipidemia, Osteoarthritis (OA), Skin Disorder, Vascular Disorder Additional Past Medical History / Comment(s): basal cell skin cancer, rash on face, History of Any Multi-Drug Resistant Organisms: None Reported Past Surgical History: AICD, Appendectomy, Bladder Surgery, Bowel Resection, Cholecystectomy, Heart Catheterization, Hysterectomy, Tonsillectomy, Tubal Ligation Additional Past Surgical History / Comment(s): venogram/fluoroscopy, neema cataracts, Past Anesthesia/Blood Transfusion Reactions: No Reported Reaction Type of Cardiac Device: AICD Device Placement Date:: 2007 Past Psychological History: No Psychological Hx Reported Smoking Status: Never smoker Past Alcohol Use History: None Reported Past Drug Use History: None Reported - Past Family History Father Family Medical History: Cancer Mother Family Medical History: Cancer Sister(s) Family Medical History: Cancer, Deep Vein Thrombosis (DVT) Additional Family Medical History / Comment(s): skin cancer Brother(s) History Unknown: Yes Family Medical History: Cancer Additional Family Medical History / Comment(s): skin cancer Medications and Allergies Home Medications Medication Instructions Recorded Confirmed Type Magnesium Chloride [Mag64] 64 mg PO DAILY@0700 10/22/15 12/20/20 History Simvastatin [Zocor] 20 mg PO HS 10/22/15 12/20/20 History Spironolactone [Aldactone] 12.5 mg PO DAILY@0900 10/22/15 12/20/20 History Amiodarone [Cordarone] 200 mg PO DAILY@0900 11/24/15 12/20/20 History Levothyroxine Sodium [Synthroid] 25 mcg PO DAILY@0700 03/30/18 12/20/20 History Warfarin [Coumadin] 1 mg PO SUTUTH@209903/30/18 12/20/20 History Warfarin [Coumadin] 1.5 mg PO MOWEFRSA@209903/30/18 12/20/20 History calcium polycarbophiL [Fibercon] 625 mg PO DAILY PRN 11/19/18 12/20/20 History Cetirizine HCl 10 mg PO DAILY PRN 11/21/20 12/20/20 History Doxycycline Hyclate 50 mg PO DAILY@0900 11/21/20 12/20/20 History Metoprolol Succinate [Toprol XL] 100 mg PO DAILY@0900 11/21/20 12/20/20 History glipiZIDE [Glucotrol] 5 mg PO BID@0900,2100 11/21/20 12/20/20 History Furosemide [Lasix] 20 mg PO DAILY@1600 12/20/20 12/20/20 History Furosemide [Lasix] 40 mg PO DAILY@0900 12/20/20 12/20/20 History Allergies Allergy/AdvReac Type Severity Reaction Status Date / Time quinidine Allergy Rash/Hives Verified 12/20/20 08:11 CLEAR PLASTIC TAPE Allergy Rash/Hives Uncoded 11/21/20 09:12 Physical Exam Vitals: Vital Signs Temp Pulse Pulse Resp BP BP Pulse Ox 12/20/20 11:49 70 119/76 12/20/20 06:36 70 18 107/45 94 L 12/20/20 03:26 73 18 103/61 94 L 12/20/20 02:46 72 22 115/64 95 12/20/20 01:25 70 20 110/61 95 12/20/20 00:28 72 20 95 12/20/20 00:24 70 12/20/20 00:14 70 12/20/20 00:09 71 24 94 L 12/19/20 23:29 70 23 93 L 12/19/20 23:25 70 32 H 92 L 12/19/20 23:21 24 12/19/20 23:18 70 22 90 L 12/19/20 23:04 97.4 F L 73 24 139/71 86 L Intake and Output 12/19/20 12/20/20 12/20/20 22:59 06:59 14:59 Other: Weight 70.307 kg Results CBC & Chem 7: 12/20/20 12:32 12/20/20 12:32 Labs: Abnormal Lab Results - Last 24 Hours (Table) 12/19/20 12/19/20 12/19/20 Range/Units 23:51 23:51 23:51 Neutrophils # 7.9 H (1.3-7.7) k/uL Lymphocytes # (1.0-4.8) k/uL PT 27.2 H (9.0-12.0) sec INR 2.8 H (<1.2) APTT 30.1 H (22.0-30.0) sec BUN 33 H (7-17) mg/dL Creatinine 1.79 H (0.52-1.04) mg/dL Glucose 213 H (74-99) mg/dL Total Bilirubin (0.2-1.3) mg/dL AST 43 H (14-36) U/L C-Reactive Protein 1.2 H (<1.0) mg/dL Total Protein (6.3-8.2) g/dL 12/20/20 12/20/20 12/20/20 Range/Units 12:32 12:32 12:32 Neutrophils # (1.3-7.7) k/uL Lymphocytes # 0.5 L (1.0-4.8) k/uL PT 26.0 H (9.0-12.0) sec INR 2.7 H (<1.2) APTT (22.0-30.0) sec BUN 35 H (7-17) mg/dL Creatinine 1.77 H (0.52-1.04) mg/dL Glucose 307 H (74-99) mg/dL Total Bilirubin 1.4 H (0.2-1.3) mg/dL AST (14-36) U/L C-Reactive Protein (<1.0) mg/dL Total Protein 6.2 L (6.3-8.2) g/dL
--- NOTE | 2020-12-20 13:51 | ECHOF ---
Referral Reason:Heart Failure MEASUREMENTS -------- HEIGHT: 165.1 cm WEIGHT: 70.3 kg BP: IVSd: 0.8 cm (0.6 - 1.1) LVIDd: 6.8 cm (3.9 - 5.3) LVPWd: 0.9 cm (0.6 - 1.1) EDV(Teich): 238 ml IVSs: 1.1 cm LVIDs: 5.8 cm LVPWs: 1.4 cm %IVS Thck: 39 % ESV(Teich): 170 ml EF(Teich): 29 % %FS: 14 % SV(Teich): 68 ml RVIDd: 2.4 cm (< 3.3) IVC: 16.13 mm LALs A4C: 7.5 cm LAAs A4C: 39.1 cm LAESV A-L A4C: 172 ml LAESV MOD A4C: 154 ml LALs A2C: 6.2 cm LAAs A2C: 29.9 cm LAESV A-L A2C: 122 ml LAESV MOD A2C: 118 ml LAESV(A-L): 159 ml LAESV Index (A-L): 89.54 ml/m Ao Diam: 2.8 cm (2.0 - 3.7) LA Diam: 4.8 cm (2.7 - 3.8) AV Cusp: 2.1 cm (1.5 - 2.6) EPSS: 2.7 cm MV E Syed: 0.81 m/s MV DecT: 195 ms MV Dec Orange: 4.2 m/s MV A Syed: 0.29 m/s MV E/A Ratio: 2.77 MV PHT: 56 ms MR Vmax: 4.22 m/s MR maxP.39 mmHg AV Vmax: 1.00 m/s AV maxP.98 mmHg AR Vmax: 3.57 m/s AR maxP.09 mmHg AR PHT: 619 ms AR Dec Time: 2135 ms AR Dec Orange: 1.7 m/s TR Vmax: 2.58 m/s TR maxP.57 mmHg RAP: 5.00 mmHg RVSP: 31.57 mmHg MV EF SLOPE: 161.38 mm/s (70 - 150) MV EXCURSION: 20.54 mm (> 18.000) FINDINGS -------- Paced rhythm. This was a technically good study. The left ventricle is moderately dilated. Left ventricular wall thickness is normal. There is sev ere global hypokinesis of LV . Overall left ventricular systolic function is severely impaired with , an EF between 20 - 25 %. The right ventricle is normal in size. LA is severely dilated >40 ml/m2 The right atrial size is normal. The aortic valve is trileaflet and appears structurally normal. There is mild aortic regurgitation. The mitral valve is normal. The mitral valve leaflets are mildly thickened. Severe mitral regurgi tation is present. The tricuspid valve appears structurally normal. Mild tricuspid regurgitation present. Right vent ricular systolic pressure is normal at < 35 mmHg. There is no pulmonic regurgitation present. The aortic root size is normal. Normal inferior vena cava with normal inspiratory collapse consistent with estimated right atrial pre ssure of 5 mmHg. There is no pericardial effusion. Large Pleural Effusion. CONCLUSIONS -------- 1. The left ventricle is moderately dilated. 2. Left ventricular wall thickness is normal. 3. There is severe global hypokinesis of LV . 4. Overall left ventricular systolic function is severely impaired with, an EF between 20 - 25 %. 5. LA is severely dilated >40 ml/m2 6. There is mild aortic regurgitation. 7. The mitral valve leaflets are mildly thickened. 8. Severe mitral regurgitation is present. 9. Mild tricuspid regurgitation present. 10. There is no pericardial effusion. 11. Large Pleural Effusion. RAW JUICE WEIGHER: Vonnie Rodriguez RDCS
[2020-12-20] MEDS: AMIODARONE 200 MG TAB PO SCH (15:50)
[2020-12-20] MEDS: LEVOTHYROXINE 25 MCG TAB PO SCH (15:50)
[2020-12-20] MEDS: METOPROLOL SUCCINATE (ER) 100 MG TAB.ER.24H PO SCH (15:50)
[2020-12-20] MEDS: SPIRONOLACTONE 25 MG TAB PO SCH (15:51)
[2020-12-20] MEDS: MAGNESIUM OXIDE 400 MG TAB PO SCH (15:52)
[2020-12-20 16:26] LABS: Glucose,Whole Blood 336 mg/dL (75-99)
[2020-12-20] MEDS: INSULIN ASPART (NovoLOG) 100 UNIT/ML VIAL SQ SCH ×2 (17:04→21:49)
[2020-12-20] MEDS ORDERED: WARFARIN 1 MG TAB PO SCH (21:00)
[2020-12-20 21:12] LABS: Glucose,Whole Blood 132 mg/dL (75-99)
[2020-12-20] MEDS: ATORVASTATIN 10 MG TAB PO SCH (21:50)
[2020-12-20] MEDS: hydrALAZINE HCL 25 MG TAB PO SCH (21:50)
[2020-12-20] MEDS: glipiZIDE 5 MG TAB PO SCH (21:50)
[2020-12-20 21:59] LABS: Appearance,Urine Clear (Clear); Bilirubin,Urine Negative (Negative); Blood,Urine Negative (Negative); Color,Urine Yellow; Glucose,Urine (UA) Negative (Negative); Ketones,Urine Negative (Negative); Leukocyte Esterase,Urine Negative (Negative); Nitrite,Urine Negative (Negative); Protein,Urine Negative (Negative); Specific Gravity,Urine 1.011 (1.001-1.035); Urobilinogen,Urine <2.0 mg/dL (<2.0)
[2020-12-21] MEDS: FUROSEMIDE 10 MG/ML 4 ML VIAL IV SCH ×3 (00:50→17:37)
[2020-12-21] MEDS: LEVOTHYROXINE 25 MCG TAB PO SCH (06:27)
[2020-12-21] MEDS: MAGNESIUM OXIDE 400 MG TAB PO SCH (06:27)
[2020-12-21 07:02] LABS: Glucose,Whole Blood 146 mg/dL (75-99)
[2020-12-21] MEDS: INSULIN ASPART (NovoLOG) 100 UNIT/ML VIAL SQ SCH ×4 (07:51→20:46)
[2020-12-21] MEDS: AMIODARONE 200 MG TAB PO SCH (07:52)
[2020-12-21] MEDS: SPIRONOLACTONE 25 MG TAB PO SCH (07:52)
[2020-12-21] MEDS: DOXYCYCLINE 50 MG CAP PO SCH (07:52)
[2020-12-21] MEDS: METOPROLOL SUCCINATE (ER) 100 MG TAB.ER.24H PO SCH (07:53)
[2020-12-21] MEDS: glipiZIDE 5 MG TAB PO SCH ×2 (07:53→20:46)
[2020-12-21] MEDS: hydrALAZINE HCL 25 MG TAB PO SCH (07:53)
[2020-12-21 09:15] LABS: INR 3.3 (<1.2); Prothrombin Time 32.1 sec (9.0-12.0)
[2020-12-21 11:17] LABS: Glucose,Whole Blood 169 mg/dL (75-99)
--- NOTE | 2020-12-21 11:31 | P.PN ---
Subjective Progress Note Date: 12/21/20 This is an 85-year-old female patient of Dr. Solomon and Dr. Rucker with past medical history of nonischemic cardiomyopathy status post IV ICD, chronic persistent atrial fibrillation on long-term anticoagulation with Coumadin, mitral regurgitation, chronic systolic heart failure, hypertension, hyperlipi demia, diabetes mellitus type 2, chronic kidney disease stage IV, rosacea. Patient states that she has had shortness of breath at nighttime for the past couple of days the worsened last evening. Her called 911 and patient was brought into the hospital for further evaluation. She was found to be afebrile, heart rate in the 60s and 70s, blood pressure 147/85, pulse ox 93% on room air. EKG is ventricular paced rhythm. WBC 12, hemoglobin 15.4, platelet count 235. I's were normal. BUN 20 and creatinine of 1.7. Blood sugar 253. INR 2.5. Total bilirubin 1.5 and AST 40, ALT 21, alkaline phosphatase 64. D- dimer 0.73. Troponin negative times 1. Lactic acid 4.3 and repeat 1.5. ProBNP 12,800. Coronal virus PCR not detected. Chest x-ray reveals heart failure with pleural fluid and pulmonary edema. 12/21: Patient is examined at the bedside found resting comfortably in bed in no acute distress. Patient was started on a entresto. Continue to monitor blood pressure and make adjustments as she becomes hypotensive. Patient has been up to the bathroom without any difficulties. She is planning on chart or in this morning. Patient did have a discussion about future plans related to the shortness of breath and her pacemaker. Patient is encouraged to continue to stay positive and we will continue to make medication adjustments as needed. Lower extremity swelling has improved. She is only utilizing her nasal cannula for oxygen needs. Patient remains afebrile, heart rate 70, respirations 18, blood pressure 104/65 pulse ox 97% on 4 L. REVIEW OF SYSTEMS Constitutional: No fever, no chills, no night sweats. Reports weight change. No weakness, reports fatigue no lethargy. No daytime sleepiness. EENT: No headache. No blurred vision or double vision, no loss of vision. No loss of Hearing, no ringing in the ears, no dizziness. No nasal drainage or congestion. No epistaxis. No sore throat. Lungs: Reports shortness of breath, cough, no sputum production. No wheezing. Cardiovascular: No chest pain, no lower extremity edema. No palpitations. No paroxysmal nocturnal dyspnea. Reports orthopnea. No lightheadedness or dizziness. No syncopal episodes. Abdominal: No abdominal pain. No nausea, vomiting. No diarrhea. No constipati on. No bloody or tarry stools.. No loss of appetite. Genitourinary: No dysuria, increased frequency, urgency. No urinary retention. Musculoskeletal: No myalgias. No muscle weakness, no gait dysfunction, no frequent falls. No back pain. No neck pain. Integumentary: No wounds, no lesions. No rash or pruritus. No unusual bruising. No change in hair or nails. Neurologic: No aphasia. No facial droop. No change in mentation. No head injury. No headache. No paralysis. No paresthesia. Psychiatric: No depression. No anxiety. No mood swings. Endocrine: No abnormal blood sugars. Reports weight change. No excessive sweating or thirst. No cold intolerance. PHYSICAL EXAMINATION Gen: This is an 85-year-old female. She is resting in bed and appears to be comfortable and in no acute distress. HEENT: Head is atraumatic, normocephalic. Pupils equal, round. Sclerae is anicteric. NECK: Supple. No JVD. No lymphadenopathy. No thyromegaly. LUNGS: Clear to auscultation. No wheezes or rhonchi. No intercostal retractions. HEART: Irregularly irregular rhythm with systolic murmur. ABDOMEN: Soft. Bowel sounds are present. No masses. No tenderness. EXTREMITIES: No pedal edema. No calf tenderness. NEUROLOGICAL: Patient is awake, alert and oriented x3. Cranial nerves 2 through 12 are grossly intact. ASSESSMENT AND PLAN 1. Acute hypoxic respiratory failure secondary to systolic heart failure. Patient has been started on Lasix 40 mg IV every 8 hours, cardiology consult appreciated. Continue Aldactone 12.5 mg daily, metoprolol succinate 100 mg daily, hydralazine 25mg discontinued, entresto initiated. monitor I&O and daily weights, monitor electrolytes and renal function. 2. Nonischemic cardiomyopathy status post ICD, stable. 3. Chronic persistent atrial fibrillation on long-term anticoagulation with Coumadin, pharmacy to dose. Continue amiodarone 200 mg daily, Toprol-XL 100 mg daily 4. History of mitral regurgitation. Echocardiogram has been ordered. 5. Hypertension. Continue metoprolol, amiodarone. 6. Hyperlipidemia. Continue atorvastatin 10 mg at bedtime. 7. Diabetes mellitus type 2. Start patient on NovoLog scale before meals and at bedtime, continue glipizide 5 mg twice daily. 8. Hypothyroidism. Continue levothyroxine 25 mg daily. 9. Rosacea. Continue doxycycline 50 mg daily. 10. GI prophylaxis. Protonix. 11. DVT prophylaxis. Coumadin. 12. COVID-19 testing negative. Patient has been hospitalized during a pandemic. Patient will be admitted to the hospital for a minimum of 2 night stay. DISCHARGE PLAN Most likely home with homecare on Tuesday Impression and plan of care have been directed as dictated by the signing physician. Abbie He nurse practitioner acting as scribe for signing physician. Objective - Vital Signs Vital signs: Vital Signs Temp 97.7 F 12/21/20 07:26 Pulse 70 12/21/20 07:26 Resp 18 12/21/20 07:26 BP 104/65 12/21/20 07:26 Pulse Ox 97 12/21/20 07:26 Intake & Output 12/20/20 12/21/20 12/21/20 18:59 06:59 18:59 Intake Total 600 Output Total 500 Balance 100 Weight 70.307 kg 69 kg Intake: Oral 600 Output: Urine 500 Other: Voiding Method Toilet # Voids 2 - Labs CBC & Chem 7: 12/20/20 12:32 12/20/20 12:32 Labs: Abnormal Lab Results - Last 24 Hours (Table) 12/20/20 12/20/20 12/20/20 Range/Units 12:32 12:32 12:32 Lymphocytes # 0.5 L (1.0-4.8) k/uL PT 26.0 H (9.0-12.0) sec INR 2.7 H (<1.2) BUN 35 H (7-17) mg/dL Creatinine 1.77 H (0.52-1.04) mg/dL Glucose 307 H (74-99) mg/dL POC Glucose (mg/dL) (75-99) mg/dL Total Bilirubin 1.4 H (0.2-1.3) mg/dL Total Protein 6.2 L (6.3-8.2) g/dL 12/20/20 12/20/20 12/21/20 Range/Units 16:25 21:11 07:01 Lymphocytes # (1.0-4.8) k/uL PT (9.0-12.0) sec INR (<1.2) BUN (7-17) mg/dL Creatinine (0.52-1.04) mg/dL Glucose (74-99) mg/dL POC Glucose (mg/dL) 336 H 132 H 146 H (75-99) mg/dL Total Bilirubin (0.2-1.3) mg/dL Total Protein (6.3-8.2) g/dL 12/21/20 12/21/20 Range/Units 08:14 11:16 Lymphocytes # (1.0-4.8) k/uL PT 32.1 H (9.0-12.0) sec INR 3.3 H (<1.2) BUN (7-17) mg/dL Creatinine (0.52-1.04) mg/dL Glucose (74-99) mg/dL POC Glucose (mg/dL) 169 H (75-99) mg/dL Total Bilirubin (0.2-1.3) mg/dL Total Protein (6.3-8.2) g/dL
[2020-12-21] MEDS: SACUBITRIL/VALSARTAN 24 MG-26 MG TABLET PO SCH ×2 (11:42→20:46)
--- NOTE | 2020-12-21 13:06 | CONS ---
CONSULTATION Mrs. Tellez is an 85-year-old female with history of nonischemic cardiomyopathy and severe mitral regurgitation, status post AICD and biventricular implantation, who comes here with complaints of rather sudden onset of shortness of breath. Patient also has chronic atrial fibrillation, on anticoagulation. Patient was recently in the hospital on November 21 with shortness of breath. She was treated for exacerbation of CHF at the time. Patient was sent home on home oxygen. On arrival, patient was hypoxic. Patient was put on a non-rebreather mask and she seemed to be improving. She was also started on IV Lasix. Her echocardiogram shows severely impaired LV function and ejection fraction of 23%. EKG showed pacemaker rhythm is biventricular. Lab values show INR is 2.7, hemoglobin is normal. Creatinine is about 1.79. Her proBNP is 14,000. PAST MEDICAL HISTORY: Significant for nonischemic cardiomyopathy, severe mitral regurgitation, chronic CHF, chronic atrial fibrillation, status post biventricular pacemaker along with AICD. No history of ischemic heart disease. MEDICATIONS: Her medications prior to admission included Coumadin, Lasix 40 mg daily in the morning and 20 in the evening, Glucotrol, spironolactone 12.5 mg daily, simvastatin 20 mg daily, metoprolol succinate 100 mg daily, levothyroxine and amiodarone 200 mg p.o. daily. PHYSICAL EXAMINATION: Physical examination at this time reveals an 85-year-old female who is alert, does not appear to be in acute distress at this time. Neck is supple. Mild JVD. Heart: S1 and S2 heard. Regular rhythm. There is a systolic murmur at the apex. Lungs shows diminished breath sounds in the bases. Abdomen is soft. Extremities: No significant edema. FINAL IMPRESSION: 1. Exacerbation of chronic systolic congestive heart failure. 2. Nonischemic cardiomyopathy. 3. Atrial fibrillation. 4. Severe mitral regurgitation. 5. History of AICD and biventricular pacing. PLAN: Continue with IV diuretics. I will add a small dose of hydralazine as tolerated. Continue the rest of the medications. She used to be on Entresto, which was discontinued because of cost concern. We may consider restarting Entresto if patient and family are willing and if blood pressure can support it. Prognosis is guarded. MMODL / IJN: [id number] / [facility]
[2020-12-21 16:48] LABS: Glucose,Whole Blood 160 mg/dL (75-99)
[2020-12-21] MEDS ORDERED: WARFARIN 0.5 MG TAB PO ONE (18:00)
[2020-12-21 20:36] LABS: Glucose,Whole Blood 174 mg/dL (75-99)
[2020-12-21] MEDS: ATORVASTATIN 10 MG TAB PO SCH (20:46)
[2020-12-21] MEDS ORDERED: WARFARIN 1 MG TAB PO SCH (21:00)
[2020-12-22] MEDS: FUROSEMIDE 10 MG/ML 4 ML VIAL IV SCH ×2 (01:07→08:07)
[2020-12-22] MEDS: MAGNESIUM OXIDE 400 MG TAB PO SCH (06:23)
[2020-12-22] MEDS: LEVOTHYROXINE 25 MCG TAB PO SCH (06:23)
[2020-12-22 07:14] LABS: INR 3.7 (<1.2); Prothrombin Time 35.5 sec (9.0-12.0)
[2020-12-22 07:25] LABS: Glucose,Whole Blood 87 mg/dL (75-99)
[2020-12-22] MEDS: INSULIN ASPART (NovoLOG) 100 UNIT/ML VIAL SQ SCH ×4 (07:30→21:01)
[2020-12-22] MEDS: SPIRONOLACTONE 25 MG TAB PO SCH (08:07)
[2020-12-22] MEDS: METOPROLOL SUCCINATE (ER) 100 MG TAB.ER.24H PO SCH (08:08)
[2020-12-22] MEDS: AMIODARONE 200 MG TAB PO SCH (08:08)
[2020-12-22] MEDS: glipiZIDE 5 MG TAB PO SCH ×2 (08:08→21:01)
[2020-12-22] MEDS: DOXYCYCLINE 50 MG CAP PO SCH (08:08)
[2020-12-22] MEDS: SACUBITRIL/VALSARTAN 24 MG-26 MG TABLET PO SCH ×2 (08:08→21:01)
[2020-12-22 11:31] LABS: Glucose,Whole Blood 194 mg/dL (75-99)
[2020-12-22 11:44] LABS: African American GFR (CKD) 31 (>60 ml/min/1.73 sqM); Anion Gap 8 mmol/L; Blood Urea Nitrogen 48 mg/dL (7-17); Carbon Dioxide 31 mmol/L (22-30); Chloride 103 mmol/L (98-107); Glucose 93 mg/dL (74-99); Non-African American GFR(CKD) 27 (>60 ml/min/1.73 sqM); Potassium 3.4 mmol/L (3.5-5.1); Sodium 142 mmol/L (137-145)
--- NOTE | 2020-12-22 12:42 | P.PN ---
Subjective Progress Note Date: 12/22/20 HISTORY OF PRESENT ILLNESS: This is a 85 year old female with a history of nonischemic cardiomyopathy with BiV AICD, congestive heart failure, hyperlipidemia, hypertension, mitral reg urgitation, and chronic atrial fibrillation. Patient is admitted to the hospital secondary to CHF. She remains on IV lasix. She states her breathing has significantly improved at the time of examination. She reports being able to lay flat in bed. She denies chest pain or pressure. Echocardiogram completed revealed ejection fraction 20-25%, severe global hypokinesis, severe mitral regurgitation, mild tricuspid regurgitation, and large pleural effusion. PHYSICAL EXAM: VITAL SIGNS: Reviewed. GENERAL: Well-developed in no acute distress. NECK: Supple. No JVD or thyromegaly LUNGS: Respirations even and unlabored. Lungs diminished to auscultation bilaterally. HEART: Regular rate and rhythm. S1 and S2 heard. 3/6 systolic murmur noted. EXTREMITIES: Normal range of motion. No clubbing or cyanosis. Peripheral pulses intact. No lower extremity edema ASSESSMENT: Acute on chronic systolic congestive heart failure History of nonischemic cardiomyopathy with previous BiV AICD Hyperlipidemia Hypertension Severe mitral regurgitation Chronic persistent atrial fibrillation, on Coumadin Chronic kidney disease PLAN: Continue current cardiac medications Discontinue IV lasix Begin oral lasix. 40mg BID. Monitor kidney function Daily weights Accurate I&O Patient is currently stable from a cardiac standpoint Patient to follow up with Dr. Rucker Nurse practitioner note has been reviewed by physician. Signing provider agrees with the documented findings, assessment, and plan of care. Objective - Vital Signs Vital signs: Vital Signs Temp 98.5 F 12/22/20 08:00 Pulse 70 12/22/20 08:00 Resp 18 12/22/20 08:00 BP 106/66 12/22/20 08:00 Pulse Ox 96 12/22/20 08:00 Intake & Output 12/21/20 12/22/20 12/22/20 18:59 06:59 18:59 Output Total 660 1000 Balance -660 -1000 Weight 69 kg 68.5 kg Output: Urine 660 1000 Other: # Voids 2 - Labs CBC & Chem 7: 12/20/20 12:32 12/22/20 05:55 Labs: Abnormal Lab Results - Last 24 Hours (Table) 12/21/20 12/21/20 12/22/20 Range/Units 16:45 20:35 05:55 PT 35.5 H (9.0-12.0) sec INR 3.7 H (<1.2) Potassium (3.5-5.1) mmol/L Carbon Dioxide (22-30) mmol/L BUN (7-17) mg/dL Creatinine (0.52-1.04) mg/dL POC Glucose (mg/dL) 160 H 174 H (75-99) mg/dL 12/22/20 12/22/20 Range/Units 05:55 11:30 PT (9.0-12.0) sec INR (<1.2) Potassium 3.4 L (3.5-5.1) mmol/L Carbon Dioxide 31 H (22-30) mmol/L BUN 48 H (7-17) mg/dL Creatinine 1.69 H (0.52-1.04) mg/dL POC Glucose (mg/dL) 194 H (75-99) mg/dL
[2020-12-22 14:39] VITALS: BMI 25.1
[2020-12-22] MEDS ORDERED: POTASSIUM CHLORIDE ER 20 MEQ TAB.ER PO STA (14:55)
--- NOTE | 2020-12-22 14:56 | P.PN ---
Subjective Progress Note Date: 12/22/20 This is an 85-year-old female patient of Dr. Solomon and Dr. Rucker with past medical history of nonischemic cardiomyopathy status post IV ICD, chronic persistent atrial fibrillation on long-term anticoagulation with Coumadin, mitral regurgitation, chronic systolic heart failure, hypertension, hyperlip idemia, diabetes mellitus type 2, chronic kidney disease stage IV, rosacea. Patient states that she has had shortness of breath at nighttime for the past couple of days the worsened last evening. Her called 911 and patient was brought into the hospital for further evaluation. She was found to be afebrile, heart rate in the 60s and 70s, blood pressure 147/85, pulse ox 93% on room air. EKG is ventricular paced rhythm. WBC 12, hemoglobin 15.4, platelet count 235. I's were normal. BUN 20 and creatinine of 1.7. Blood sugar 253. INR 2.5. Total bilirubin 1.5 and AST 40, ALT 21, alkaline phosphatase 64. D- dimer 0.73. Troponin negative times 1. Lactic acid 4.3 and repeat 1.5. ProBNP 12,800. Coronal virus PCR not detected. Chest x-ray reveals heart failure with pleural fluid and pulmonary edema. 12/21: Patient is examined at the bedside found resting comfortably in bed in no acute distress. Patient was started on a entresto. Continue to monitor blood pressure and make adjustments as she becomes hypotensive. Patient has been up to the bathroom without any difficulties. She is planning on chart or in this morning. Patient did have a discussion about future plans related to the shortness of breath and her pacemaker. Patient is encouraged to continue to stay positive and we will continue to make medication adjustments as needed. Lower extremity swelling has improved. She is only utilizing her nasal cannula for oxygen needs. Patient remains afebrile, heart rate 70, respirations 18, blood pressure 104/65 pulse ox 97% on 4 L. 12/22: A states that she did not get any sleep during the night because she was awakened 6 times during the night. Echocardiogram reveals EF of 20-25%, severe global hypokinesia, severe mitral regurgitation, mild tricuspid regurgitation and large pleural effusion. IV Lasix has been changed over to oral 40 mg twice daily. We have added and consults with PT and OT. Patient has been cleared for discharge by cardiology with plan to follow-up with Dr. Rucker in the office. Patient is afebrile, heart rate 70, blood pressure 106/66, pulse ox 96% on 3 L nasal cannula. INR 3.7. Potassium 3.4 and will be replaced. BUN 48 and creatinine 1.69. Blood sugars running between 87 and 194. Anticipate discharge home tomorrow. REVIEW OF SYSTEMS Constitutional: No fever, no chills, no night sweats. Reports weight change. No weakness, reports fatigue no lethargy. No daytime sleepiness. EENT: No headache. No blurred vision or double vision, no loss of vision. No loss of Hearing, no ringing in the ears, no dizziness. No nasal drainage or congestion. No epistaxis. No sore throat. Lungs: Reports shortness of breath, cough, no sputum production. No wheezing. Cardiovascular: No chest pain, no lower extremity edema. No palpitations. No paroxysmal nocturnal dyspnea. Reports orthopnea. No lightheadedness or dizziness. No syncopal episodes. Abdominal: No abdominal pain. No nausea, vomiting. No diarrhea. No constipation. No bloody or tarry stools.. No loss of appetite. Genitourinary: No dysuria, increased frequency, urgency. No urinary retention. Musculoskeletal: No myalgias. No muscle weakness, no gait dysfunction, no frequent falls. No back pain. No neck pain. Integumentary: No wounds, no lesions. No rash or pruritus. No unusual bruising. No change in hair or nails. Neurologic: No aphasia. No facial droop. No change in mentation. No head injury. No headache. No paralysis. No paresthesia. Psychiatric: No depression. No anxiety. No mood swings. Endocrine: No abnormal blood sugars. Reports weight change. No excessive sweating or thirst. No cold intolerance. PHYSICAL EXAMINATION Gen: This is an 85-year-old female. She is resting in bed and appears to be comfortable and in no acute distress. HEENT: Head is atraumatic, normocephalic. Pupils equal, round. Sclerae is anicteric. NECK: Supple. No JVD. No lymphadenopathy. No thyromegaly. LUNGS: Clear to auscultation. No wheezes or rhonchi. No intercostal retractions . HEART: Irregularly irregular rhythm with systolic murmur. ABDOMEN: Soft. Bowel sounds are present. No masses. No tenderness. EXTREMITIES: No pedal edema. No calf tenderness. NEUROLOGICAL: Patient is awake, alert and oriented x3. Cranial nerves 2 through 12 are grossly intact. ASSESSMENT AND PLAN 1. Acute hypoxic respiratory failure secondary to systolic heart failure. Patient has been started on Lasix 40 mg oral twice daily, cardiology consult appreciated. Continue Aldactone 12.5 mg daily, metoprolol succinate 100 mg daily, hydralazine 25mg discontinued, entresto initiated. monitor I&O and daily weights, monitor electrolytes and renal function. 2. Nonischemic cardiomyopathy status post ICD, stable. 3. Chronic persistent atrial fibrillation on long-term anticoagulation with Coumadin, pharmacy to dose. Continue amiodarone 200 mg daily, Toprol-XL 100 mg daily 4. History of mitral regurgitation. Echocardiogram has been ordered. 5. Hypertension. Continue metoprolol, amiodarone. 6. Hyperlipidemia. Continue atorvastatin 10 mg at bedtime. 7. Diabetes mellitus type 2. Start patient on NovoLog scale before meals and at bedtime, continue glipizide 5 mg twice daily. 8. Hypothyroidism. Continue levothyroxine 25 mg daily. 9. Rosacea. Continue doxycycline 50 mg daily. 10. GI prophylaxis. Protonix. 11. DVT prophylaxis. Coumadin. 12. COVID-19 testing negative. Patient has been hospitalized during a pandemic. Patient will be admitted to the hospital for a minimum of 2 night stay. DISCHARGE PLAN Home without home care on Tuesday Impression and plan of care have been directed as dictated by the signing physician. Nicole Park nurse practitioner acting as scribe for signing physician. Objective - Vital Signs Vital signs: Vital Signs Temp 98.5 F 12/22/20 08:00 Pulse 70 12/22/20 08:00 Resp 18 12/22/20 08:00 BP 106/66 12/22/20 08:00 Pulse Ox 96 12/22/20 08:00 Intake & Output 12/21/20 12/22/20 12/22/20 18:59 06:59 18:59 Output Total 660 1000 Balance -660 -1000 Weight 69 kg 68.5 kg Output: Urine 660 1000 Other: # Voids 2 - Labs CBC & Chem 7: 12/20/20 12:32 12/22/20 05:55 Labs: Abnormal Lab Results - Last 24 Hours (Table) 12/21/20 12/21/20 12/21/20 Range/Units 11:16 16:45 20:35 PT (9.0-12.0) sec INR (<1.2) POC Glucose (mg/dL) 169 H 160 H 174 H (75-99) mg/dL 12/22/20 Range/Units 05:55 PT 35.5 H (9.0-12.0) sec INR 3.7 H (<1.2) POC Glucose (mg/dL) (75-99) mg/dL
[2020-12-22] MEDS: FUROSEMIDE 40 MG TAB PO SCH (16:26)
[2020-12-22 16:31] LABS: Glucose,Whole Blood 119 mg/dL (75-99)
[2020-12-22] MEDS ORDERED: WARFARIN 0.5 MG TAB PO ONE (18:00)
[2020-12-22 20:43] LABS: Glucose,Whole Blood 168 mg/dL (75-99)
[2020-12-22] MEDS: ATORVASTATIN 10 MG TAB PO SCH (21:01)
[2020-12-23] MEDS: MAGNESIUM OXIDE 400 MG TAB PO SCH (06:19)
[2020-12-23] MEDS: LEVOTHYROXINE 25 MCG TAB PO SCH (06:19)
[2020-12-23 07:05] LABS: African American GFR (CKD) 35 (>60 ml/min/1.73 sqM); Anion Gap 6 mmol/L; Blood Urea Nitrogen 42 mg/dL (7-17); Calcium 9.3 mg/dL (8.4-10.2); Carbon Dioxide 32 mmol/L (22-30); Chloride 105 mmol/L (98-107); Glucose 88 mg/dL (74-99); Non-African American GFR(CKD) 30 (>60 ml/min/1.73 sqM); Potassium 3.7 mmol/L (3.5-5.1); Sodium 143 mmol/L (137-145)
[2020-12-23 07:07] LABS: INR 3.3 (<1.2); Prothrombin Time 32.1 sec (9.0-12.0)
[2020-12-23 07:25] LABS: Glucose,Whole Blood 112 mg/dL (75-99)
[2020-12-23] MEDS: INSULIN ASPART (NovoLOG) 100 UNIT/ML VIAL SQ SCH ×4 (07:27→22:36)
[2020-12-23] MEDS: METOPROLOL SUCCINATE (ER) 100 MG TAB.ER.24H PO SCH (08:51)
[2020-12-23] MEDS: glipiZIDE 5 MG TAB PO SCH ×2 (08:51→22:36)
[2020-12-23] MEDS: FUROSEMIDE 40 MG TAB PO SCH ×2 (08:52→15:38)
[2020-12-23] MEDS: SPIRONOLACTONE 25 MG TAB PO SCH (08:52)
[2020-12-23] MEDS: SACUBITRIL/VALSARTAN 24 MG-26 MG TABLET PO SCH ×2 (08:52→22:36)
[2020-12-23] MEDS: AMIODARONE 200 MG TAB PO SCH (08:52)
[2020-12-23] MEDS: DOXYCYCLINE 50 MG CAP PO SCH (08:52)
[2020-12-23] MEDS ORDERED: LOPERAMIDE 2 MG CAP PO PRN (09:47)
--- NOTE | 2020-12-23 10:03 | P.PN ---
Subjective Progress Note Date: 12/23/20 HISTORY OF PRESENT ILLNESS: This is a 85 year old female with a history of nonischemic cardiomyopathy with BiV AICD, congestive heart failure, hyperlipidemia, hypertension, mitral reg urgitation, and chronic atrial fibrillation. Patient is admitted to the hospital secondary to CHF. She remains on IV lasix. She states her breathing has significantly improved at the time of examination. She reports being able to lay flat in bed. She denies chest pain or pressure. Echocardiogram completed revealed ejection fraction 20-25%, severe global hypokinesis, severe mitral regurgitation, mild tricuspid regurgitation, and large pleural effusion. 12/23/2020 Patient examined this morning at the bedside. Patient states she is feeling well this morning. She denies chest pain or pressure. She states her breathing feels almost back to her baseline. She is on 2L NC. Patient was transitioned to oral lasix yesterday 40mg BID. Patient states she has continued urinating about the same amount as when she was on the IV lasix. Patient was taking 40mg lasix in the morning and 20mg in the afternoon at home. She is concerned about her kidney function with the increased dose in the afternoon. Creatinine stable today at 1.53. INR 3.3. PHYSICAL EXAM: VITAL SIGNS: Reviewed. GENERAL: Well-developed in no acute distress. NECK: Supple. No JVD or thyromegaly LUNGS: Respirations even and unlabored. Lungs diminished with crackles to auscultation bilaterally, right greater than left. HEART: Regular rate and rhythm. S1 and S2 heard. 3/6 systolic murmur noted. EXTREMITIES: Normal range of motion. No clubbing or cyanosis. Peripheral pulses intact. No lower extremity edema ASSESSMENT: Acute on chronic systolic congestive heart failure History of nonischemic cardiomyopathy with previous BiV AICD Hyperlipidemia Hypertension Severe mitral regurgitation Chronic persistent atrial fibrillation, on Coumadin Chronic kidney disease Pleural effusions PLAN: Continue current cardiac medications Continue current dose of lasix. Continue to monitor kidney function and I&O Repeat CXR this morning to assess pleural effusions Patient reports this is her second admission over the past 6 weeks for CHF. We will trial the patient on an increased dose of lasix 40mg BID outpatient and monitor her kidney function. If patient has recurrent hospitalizations and fails conservative management, we will consider thoracentesis Patient to follow up with Dr. Rucker Nurse practitioner note has been reviewed by physician. Signing provider agrees with the documented findings, assessment, and plan of care. Objective - Vital Signs Vital signs: Vital Signs Temp 98.1 F 12/23/20 07:15 Pulse 70 12/23/20 07:15 Resp 18 12/23/20 07:15 BP 105/67 12/23/20 07:15 Pulse Ox 94 L 12/23/20 07:19 Intake & Output 12/22/20 12/23/20 12/23/20 18:59 06:59 18:59 Intake Total 300 Balance 300 Weight 68.5 kg Intake: Oral 300 Other: # Voids 1 1 # Bowel Movements 1 - Labs CBC & Chem 7: 12/20/20 12:32 12/23/20 05:53 Labs: Abnormal Lab Results - Last 24 Hours (Table) 12/22/20 12/22/20 12/22/20 Range/Units 05:55 11:30 16:22 PT (9.0-12.0) sec INR (<1.2) Potassium 3.4 L (3.5-5.1) mmol/L Carbon Dioxide 31 H (22-30) mmol/L BUN 48 H (7-17) mg/dL Creatinine 1.69 H (0.52-1.04) mg/dL POC Glucose (mg/dL) 194 H 119 H (75-99) mg/dL 12/22/20 12/23/20 12/23/20 Range/Units 20:42 05:53 05:53 PT 32.1 H (9.0-12.0) sec INR 3.3 H (<1.2) Potassium (3.5-5.1) mmol/L Carbon Dioxide 32 H (22-30) mmol/L BUN 42 H (7-17) mg/dL Creatinine 1.53 H (0.52-1.04) mg/dL POC Glucose (mg/dL) 168 H (75-99) mg/dL 12/23/20 Range/Units 07:22 PT (9.0-12.0) sec INR (<1.2) Potassium (3.5-5.1) mmol/L Carbon Dioxide (22-30) mmol/L BUN (7-17) mg/dL Creatinine (0.52-1.04) mg/dL POC Glucose (mg/dL) 112 H (75-99) mg/dL
--- NOTE | 2020-12-23 10:56 | XR ---
EXAMINATION TYPE: XR chest 1V portable DATE OF EXAM: 12/23/2020 COMPARISON: 12/19/2020 HISTORY: Shortness of breath TECHNIQUE: Single frontal view of the chest is obtained. FINDINGS: Cardiac device is seen and there is bilateral infiltrate and pleural effusion. Diffuse ost eopenia with arthropathy of the shoulders. No pneumothorax. IMPRESSION: 1. Bilateral pleural effusion and infiltrate likely superimposed on a background of COPD. Correlate f or pneumonia versus CHF. Findings stable.
[2020-12-23 10:58] LABS: Glucose,Whole Blood 205 mg/dL (75-99)
--- NOTE | 2020-12-23 12:20 | P.PN ---
Subjective Progress Note Date: 12/21/20 This 85-year-old female with history of nonischemic heart myopathy and also severe mitral regurgitation status post biventricular pacemaker implantation, was admitted to the hospital with increasing shortness of breath and evidence of exacerbation of COPD. She was having orthopnea. Patient was treated with IV diuretics with improvement of her symptoms. Her creatinine is in the range of 1.7 patient is being initiated on Entresto. Patient stopped taking this medication because of the cost. At this time, patient and family are willing to go on the medication. Patient is diuresing well. Feeling much better. He will continue current medical therapy. Continue to monitor renal function closely and also potassium levels Objective - Vital Signs Vital signs: Vital Signs Temp 98.1 F 12/23/20 07:15 Pulse 70 12/23/20 07:15 Resp 18 12/23/20 07:15 BP 105/67 12/23/20 07:15 Pulse Ox 94 L 12/23/20 07:19 Intake & Output 12/22/20 12/23/20 12/23/20 18:59 06:59 18:59 Intake Total 300 Balance 300 Weight 68.5 kg Intake: Oral 300 Other: Voiding Method Toilet # Voids 1 1 # Bowel Movements 1 - Exam GENERAL EXAM: Patient is alert and oriented and doesn't appear to be in any acute distress HEENT: Normocephalic. Normal reaction of pupils, equal size, normal range of extraocular motion. No erythema or exudates in the throat. NECK: No masses, no nuchal rigidity. CHEST: No chest wall deformity. LUNGS: Diminished breath sounds at bases HEART: S1 and S2 normal with no audible mumurs or gallops. Regular rhythm, femorals equal on both sides.. ABDOMEN: No hepatosplenomegaly, normal bowel sounds, no guarding or rigidity. SKIN: No rashes CENTRAL NERVOUS SYSTEM: No focal deficits. EXTREMITIES: No cyanosis, clubbing or edema. - Labs CBC & Chem 7: 12/20/20 12:32 12/23/20 05:53 Labs: Abnormal Lab Results - Last 24 Hours (Table) 12/22/20 12/22/20 12/23/20 Range/Units 16:22 20:42 05:53 PT 32.1 H (9.0-12.0) sec INR 3.3 H (<1.2) Carbon Dioxide (22-30) mmol/L BUN (7-17) mg/dL Creatinine (0.52-1.04) mg/dL POC Glucose (mg/dL) 119 H 168 H (75-99) mg/dL 12/23/20 12/23/20 12/23/20 Range/Units 05:53 07:22 10:56 PT (9.0-12.0) sec INR (<1.2) Carbon Dioxide 32 H (22-30) mmol/L BUN 42 H (7-17) mg/dL Creatinine 1.53 H (0.52-1.04) mg/dL POC Glucose (mg/dL) 112 H 205 H (75-99) mg/dL Assessment and Plan (1) Nonischemic cardiomyopathy Current Visit: Yes Status: Acute Code(s): I42.8 - OTHER CARDIOMYOPATHIES SNOMED Code(s): 07534979 (2) Congestive heart failure Current Visit: Yes Status: Acute Code(s): I50.9 - HEART FAILURE, UNSPECIFIED SNOMED Code(s): 95694613 (3) Presence of biventricular AICD Current Visit: Yes Status: Acute Code(s): Z95.810 - PRESENCE OF AUTOMATIC (IMPLANTABLE) CARDIAC DEFIBRILLATOR SNOMED Code(s): 98287028154283 (4) Atrial fibrillation Current Visit: Yes Status: Acute Code(s): I48.91 - UNSPECIFIED ATRIAL FIBRILLATION SNOMED Code(s): 74876167 Plan: Continue current medical therapy. Start Entresto. Follow kidney function and potassium levels closely
--- NOTE | 2020-12-23 13:38 | P.PN ---
Subjective Progress Note Date: 12/23/20 This is an 85-year-old female patient of Dr. Solomon and Dr. Rucker with past medical history of nonischemic cardiomyopathy status post IV ICD, chronic persistent atrial fibrillation on long-term anticoagulation with Coumadin, mitral regurgitation, chronic systolic heart failure, hypertension, hyperlip idemia, diabetes mellitus type 2, chronic kidney disease stage IV, rosacea. Patient states that she has had shortness of breath at nighttime for the past couple of days the worsened last evening. Her called 911 and patient was brought into the hospital for further evaluation. She was found to be afebrile, heart rate in the 60s and 70s, blood pressure 147/85, pulse ox 93% on room air. EKG is ventricular paced rhythm. WBC 12, hemoglobin 15.4, platelet count 235. I's were normal. BUN 20 and creatinine of 1.7. Blood sugar 253. INR 2.5. Total bilirubin 1.5 and AST 40, ALT 21, alkaline phosphatase 64. D- dimer 0.73. Troponin negative times 1. Lactic acid 4.3 and repeat 1.5. ProBNP 12,800. Coronal virus PCR not detected. Chest x-ray reveals heart failure with pleural fluid and pulmonary edema. 12/21: Patient is examined at the bedside found resting comfortably in bed in no acute distress. Patient was started on a entresto. Continue to monitor blood pressure and make adjustments as she becomes hypotensive. Patient has been up to the bathroom without any difficulties. She is planning on chart or in this morning. Patient did have a discussion about future plans related to the shortness of breath and her pacemaker. Patient is encouraged to continue to stay positive and we will continue to make medication adjustments as needed. Lower extremity swelling has improved. She is only utilizing her nasal cannula for oxygen needs. Patient remains afebrile, heart rate 70, respirations 18, blood pressure 104/65 pulse ox 97% on 4 L. 12/22: Patient states that she did not get any sleep during the night because she was awakened 6 times during the night. Echocardiogram reveals EF of 20-25%, severe global hypokinesia, severe mitral regurgitation, mild tricuspid re gurgitation and large pleural effusion. IV Lasix has been changed over to oral 40 mg twice daily. We have added and consults with PT and OT. Patient has been cleared for discharge by cardiology with plan to follow-up with Dr. Rucker in the office. Patient is afebrile, heart rate 70, blood pressure 106/66, pulse ox 96% on 3 L nasal cannula. INR 3.7. Potassium 3.4 and will be replaced. BUN 48 and creatinine 1.69. Blood sugars running between 87 and 194. Anticipate discharge home tomorrow. 12/23: Patient has been seen by cardiology with clearance for discharge home, follow-up with Dr. Rucker. Patient was recommended to be on Lasix 40 mg twice daily as an outpatient. Repeat chest x-ray reveals bilateral pleural effusions and infiltrate likely superimposed on background of COPD. Correlate for pneumonia versus CHF. Findings stable. Patient is maintained on Coumadin, pharmacy dosing, INR 3.3. BUN 42 and creatinine 1.53. Patient has had a weight loss of 2 kg. Patient will be monitored overnight and plan for discharge tomorrow REVIEW OF SYSTEMS Constitutional: No fever, no chills, no night sweats. Reports weight change. No weakness, reports fatigue no lethargy. No daytime sleepiness. EENT: No headache. No blurred vision or double vision, no loss of vision. No loss of Hearing, no ringing in the ears, no dizziness. No nasal drainage or congestion. No epistaxis. No sore throat. Lungs: Reports shortness of breath, cough, no sputum production. No wheezing. Cardiovascular: No chest pain, no lower extremity edema. No palpitations. No paroxysmal nocturnal dyspnea. Reports orthopnea. No lightheadedness or dizziness. No syncopal episodes. Abdominal: No abdominal pain. No nausea, vomiting. No diarrhea. No constipation. No bloody or tarry stools.. No loss of appetite. Genitourinary: No dysuria, increased frequency, urgency. No urinary retention. Musculoskeletal: No myalgias. No muscle weakness, no gait dysfunction, no frequent falls. No back pain. No neck pain. Integumentary: No wounds, no lesions. No rash or pruritus. No unusual bruising. No change in hair or nails. Neurologic: No aphasia. No facial droop. No change in mentation. No head injury. No headache. No paralysis. No paresthesia. Psychiatric: No depression. No anxiety. No mood swings. Endocrine: No abnormal blood sugars. Noted weight loss. PHYSICAL EXAMINATION Gen: This is an 85-year-old female. She is resting in and appears to be comfortable and in no acute distress. HEENT: Head is atraumatic, normocephalic. Pupils equal, round. Sclerae is anicteric. NECK: Supple. No JVD. No lymphadenopathy. No thyromegaly. LUNGS: Clear to auscultation. No wheezes or rhonchi. No intercostal retraction s. HEART: Irregularly irregular rhythm with systolic murmur. ABDOMEN: Soft. Bowel sounds are present. No masses. No tenderness. EXTREMITIES: No pedal edema. No calf tenderness. NEUROLOGICAL: Patient is awake, alert and oriented x3. Cranial nerves 2 through 12 are grossly intact. ASSESSMENT AND PLAN 1. Acute hypoxic respiratory failure secondary to systolic heart failure. Patient has been started on Lasix 40 mg oral twice daily, cardiology consult appreciated. Continue Aldactone 12.5 mg daily, metoprolol succinate 100 mg daily, hydralazine 25mg discontinued, entresto initiated. monitor I&O and daily weights, monitor electrolytes and renal function. 2. Nonischemic cardiomyopathy status post ICD, stable. 3. Chronic persistent atrial fibrillation on long-term anticoagulation with Coumadin, pharmacy to dose. Continue amiodarone 200 mg daily, Toprol-XL 100 mg daily 4. History of mitral regurgitation. Echocardiogram has been ordered. 5. Hypertension. Continue metoprolol, amiodarone. 6. Hyperlipidemia. Continue atorvastatin 10 mg at bedtime. 7. Diabetes mellitus type 2. Start patient on NovoLog scale before meals and at bedtime, continue glipizide 5 mg twice daily. 8. Hypothyroidism. Continue levothyroxine 25 mg daily. 9. Rosacea. Continue doxycycline 50 mg daily. 10. GI prophylaxis. Protonix. 11. DVT prophylaxis. Coumadin. 12. COVID-19 testing negative. Patient has been hospitalized during a pandemic. DISCHARGE PLAN Home without home care on Tuesday Impression and plan of care have been directed as dictated by the signing physician. Nicole Park nurse practitioner acting as scribe for signing physician. Objective - Vital Signs Vital signs: Vital Signs Temp 98.1 F 12/23/20 07:15 Pulse 70 12/23/20 07:15 Resp 18 12/23/20 07:15 BP 105/67 12/23/20 07:15 Pulse Ox 94 L 12/23/20 07:19 Intake & Output 12/22/20 12/23/20 12/23/20 18:59 06:59 18:59 Intake Total 300 Balance 300 Weight 68.5 kg Intake: Oral 300 Other: # Voids 1 1 # Bowel Movements 1 - Labs CBC & Chem 7: 12/20/20 12:32 12/23/20 05:53 Labs: Abnormal Lab Results - Last 24 Hours (Table) 12/22/20 12/22/20 12/22/20 Range/Units 05:55 11:30 16:22 PT (9.0-12.0) sec INR (<1.2) Potassium 3.4 L (3.5-5.1) mmol/L Carbon Dioxide 31 H (22-30) mmol/L BUN 48 H (7-17) mg/dL Creatinine 1.69 H (0.52-1.04) mg/dL POC Glucose (mg/dL) 194 H 119 H (75-99) mg/dL 12/22/20 12/23/20 12/23/20 Range/Units 20:42 05:53 05:53 PT 32.1 H (9.0-12.0) sec INR 3.3 H (<1.2) Potassium (3.5-5.1) mmol/L Carbon Dioxide 32 H (22-30) mmol/L BUN 42 H (7-17) mg/dL Creatinine 1.53 H (0.52-1.04) mg/dL POC Glucose (mg/dL) 168 H (75-99) mg/dL 12/23/20 Range/Units 07:22 PT (9.0-12.0) sec INR (<1.2) Potassium (3.5-5.1) mmol/L Carbon Dioxide (22-30) mmol/L BUN (7-17) mg/dL Creatinine (0.52-1.04) mg/dL POC Glucose (mg/dL) 112 H (75-99) mg/dL
[2020-12-23 15:52] VITALS: RESP 16
[2020-12-23 17:02] LABS: Glucose,Whole Blood 120 mg/dL (75-99)
[2020-12-23] MEDS ORDERED: WARFARIN 0.5 MG TAB PO ONE (18:00)
[2020-12-23 21:11] LABS: Glucose,Whole Blood 137 mg/dL (75-99)
[2020-12-23] MEDS: ATORVASTATIN 10 MG TAB PO SCH (22:36)
[2020-12-24 06:24] LABS: INR 2.3 (<1.2); Prothrombin Time 22.4 sec (9.0-12.0)
[2020-12-24 07:01] LABS: Glucose,Whole Blood 96 mg/dL (75-99)
[2020-12-24] MEDS: INSULIN ASPART (NovoLOG) 100 UNIT/ML VIAL SQ SCH ×2 (07:06→12:04)
[2020-12-24] MEDS: METOPROLOL SUCCINATE (ER) 100 MG TAB.ER.24H PO SCH (07:18)
[2020-12-24] MEDS: glipiZIDE 5 MG TAB PO SCH (07:21)
[2020-12-24] MEDS: DOXYCYCLINE 50 MG CAP PO SCH (07:21)
[2020-12-24] MEDS: FUROSEMIDE 40 MG TAB PO SCH (07:21)
[2020-12-24] MEDS: SACUBITRIL/VALSARTAN 24 MG-26 MG TABLET PO SCH (07:21)
[2020-12-24] MEDS: AMIODARONE 200 MG TAB PO SCH (07:22)
[2020-12-24] MEDS: MAGNESIUM OXIDE 400 MG TAB PO SCH (07:22)
[2020-12-24] MEDS: SPIRONOLACTONE 25 MG TAB PO SCH (07:22)
[2020-12-24] MEDS: LEVOTHYROXINE 25 MCG TAB PO SCH (07:22)
[2020-12-24 08:06] VITALS: BP 96/62; PULSE 67; TEMP 98.2
--- NOTE | 2020-12-24 10:21 | P.PN ---
Subjective Progress Note Date: 12/24/20 HISTORY OF PRESENT ILLNESS: This is a 85 year old female with a history of nonischemic cardiomyopathy with BiV AICD, congestive heart failure, hyperlipidemia, hypertension, mitral reg urgitation, and chronic atrial fibrillation. Patient is admitted to the hospital secondary to CHF. She remains on IV lasix. She states her breathing has significantly improved at the time of examination. She reports being able to lay flat in bed. She denies chest pain or pressure. Echocardiogram completed revealed ejection fraction 20-25%, severe global hypokinesis, severe mitral regurgitation, mild tricuspid regurgitation, and large pleural effusion. 12/23/2020 Patient examined this morning at the bedside. Patient states she is feeling well this morning. She denies chest pain or pressure. She states her breathing feels almost back to her baseline. She is on 2L NC. Patient was transitioned to oral lasix yesterday 40mg BID. Patient states she has continued urinating about the same amount as when she was on the IV lasix. Patient was taking 40mg lasix in the morning and 20mg in the afternoon at home. She is concerned about her kidney function with the increased dose in the afternoon. Creatinine stable today at 1.53. INR 3.3. 12/24/2020 Patient examined this morning at the bedside. Patient denies chest pain or pressure. She denies shortness of breath. She remains on nasal cannula. She reports she is still urinating frequently. No repeat kidney function today. PHYSICAL EXAM: VITAL SIGNS: Reviewed. GENERAL: Well-developed in no acute distress. NECK: Supple. No JVD or thyromegaly LUNGS: Respirations even and unlabored. Lungs diminished to auscultation bila terally. HEART: Regular rate and rhythm. S1 and S2 heard. 3/6 systolic murmur noted. EXTREMITIES: Normal range of motion. No clubbing or cyanosis. Peripheral pulses intact. No lower extremity edema ASSESSMENT: Acute on chronic systolic congestive heart failure History of nonischemic cardiomyopathy with previous BiV AICD Hyperlipidemia Hypertension Severe mitral regurgitation Chronic persistent atrial fibrillation, on Coumadin Chronic kidney disease Pleural effusions PLAN: Continue current cardiac medications Patient is stable for discharge home today on current medical regimen Patient to have BMP in 1 week Patient to follow up with Dr. Rucker Nurse practitioner note has been reviewed by physician. Signing provider agrees with the documented findings, assessment, and plan of care. Objective - Vital Signs Vital signs: Vital Signs Temp 98.2 F 12/24/20 08:05 Pulse 67 12/24/20 08:05 Resp 16 12/24/20 08:05 BP 96/62 12/24/20 08:05 Pulse Ox 94 L 12/24/20 08:05 Intake & Output 12/23/20 12/24/20 12/24/20 18:59 06:59 18:59 Intake Total 500 Balance 500 Weight 67.8 kg Intake: Oral 500 Other: Voiding Method Toilet Toilet Toilet # Voids 1 # Bowel Movements 1 - Labs CBC & Chem 7: 12/20/20 12:32 12/23/20 05:53 Labs: Abnormal Lab Results - Last 24 Hours (Table) 12/23/20 12/23/20 12/23/20 Range/Units 10:56 17:00 21:06 PT (9.0-12.0) sec INR (<1.2) POC Glucose (mg/dL) 205 H 120 H 137 H (75-99) mg/dL 12/24/20 Range/Units 05:45 PT 22.4 H (9.0-12.0) sec INR 2.3 H (<1.2) POC Glucose (mg/dL) (75-99) mg/dL
[2020-12-24 10:39] LABS: African American GFR (CKD) 35 (>60 ml/min/1.73 sqM); Anion Gap 8 mmol/L; Blood Urea Nitrogen 40 mg/dL (7-17); Calcium 9.2 mg/dL (8.4-10.2); Carbon Dioxide 28 mmol/L (22-30); Chloride 106 mmol/L (98-107); Glucose 106 mg/dL (74-99); Non-African American GFR(CKD) 30 (>60 ml/min/1.73 sqM); Potassium 3.6 mmol/L (3.5-5.1); Sodium 142 mmol/L (137-145)
[2020-12-24 11:41] LABS: Glucose,Whole Blood 221 mg/dL (75-99)
[2020-12-24] MEDS ORDERED: WARFARIN 1 MG TAB PO ONE (18:00)
--- NOTE | 2020-12-25 12:42 | P.DS ---
Providers Date of admission: 12/20/20 01:11 Expected date of discharge: 12/24/20 Attending physician: Alberto Solomon Consults: 12/20/20 01:11 Consult Physician Routine Consulting Provider: Ximena Pat Consult Reason/Comments: chf Do you want consulting provider notified?: Yes Primary care physician: Alberto Solomon [facility] Course: This is an 85-year-old female patient of Dr. Solomon and Dr. Rucker with past medical history of nonischemic cardiomyopathy status post IV ICD, chronic persistent atrial fibrillation on long-term anticoagulation with Coumadin, mitral regurgitation, chronic systolic heart failure, hypertension, hyperlipidemia, diabetes mellitus type 2, chronic kidney disease stage IV, rosacea. Patient states that she has had shortness of breath at nighttime for the past couple of days the worsened last evening. Her called 911 and patient was brought into the hospital for further evaluation. She was found to be afebrile, heart rate in the 60s and 70s, blood pressure 147/85, pulse ox 93% on room air. EKG is ventricular paced rhythm. WBC 12, hemoglobin 15.4, platelet count 235. I's were normal. BUN 20 and creatinine of 1.7. Blood sugar 253. INR 2.5. Total bilirubin 1.5 and AST 40, ALT 21, alkaline phosphatase 64. D-dimer 0.73. Troponin negative times 1. Lactic acid 4.3 and repeat 1.5. ProBNP 12,800. Coronal virus PCR not detected. Chest x-ray reveals heart failure with pleural fluid and pulmonary edema. 12/21: Patient is examined at the bedside found resting comfortably in bed in no acute distress. Patient was started on a entresto. Continue to monitor blood pressure and make adjustments as she becomes hypotensive. Patient has been up to the bathroom without any difficulties. She is planning on chart or in this morning. Patient did have a discussion about future plans related to the shortness of breath and her pacemaker. Patient is encouraged to continue to stay positive and we will continue to make medication adjustments as needed. Lower extremity swelling has improved. She is only utilizing her nasal cannula for oxygen needs. Patient remains afebrile, heart rate 70, respirations 18, blood pressure 104/65 pulse ox 97% on 4 L. 12/22: Patient states that she did not get any sleep during the night because she was awakened 6 times during the night. Echocardiogram reveals EF of 20-25%, severe global hypokinesia, severe mitral regurgitation, mild tricuspid regurgitation and large pleural effusion. IV Lasix has been changed over to oral 40 mg twice daily. We have added and consults with PT and OT. Patient has been cleared for discharge by cardiology with plan to follow-up with Dr. Rucker in the office. Patient is afebrile, heart rate 70, blood pressure 106/66, pulse ox 96% on 3 L nasal cannula. INR 3.7. Potassium 3.4 and will be replaced. BUN 48 and creatinine 1.69. Blood sugars running between 87 and 194. Anticipate discharge home tomorrow. 12/23: Patient has been seen by cardiology with clearance for discharge home, follow-up with Dr. Rucker. Patient was recommended to be on Lasix 40 mg twice daily as an outpatient. Repeat chest x-ray reveals bilateral pleural effusions and infiltrate likely superimposed on background of COPD. Correlate for pneumonia versus CHF. Findings stable. Patient is maintained on Coumadin, pharmacy dosing, INR 3.3. BUN 42 and creatinine 1.53. Patient has had a weight loss of 2 kg. Patient will be monitored overnight and plan for discharge tomorrow 12/24: Patient has been seen by cardiology and plan to continue same medications and follow-up with Dr. Rucker. 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 It did come back to be $298 a month patient will get one month free and we will attempt to get samples for the patient after that. Patient is afebrile, heart rate 67, blood pressure 96/62, pulse ox 94% on 2 L nasal cannula. INR is 2.3. BUN 40 creatinine 1.54. Blood sugars are running between 96 and 221. She is breathing status is stable. She denies having any chest pain or shortness of breath. Patient will be discharged home today in stable condition. ASSESSMENT AND PLAN 1. Acute hypoxic respiratory failure secondary to systolic heart failure. 2. Nonischemic cardiomyopathy status post ICD, stable. 3. Chronic persistent atrial fibrillation on long-term anticoagulation with Coumadin. 4. History of mitral regurgitation. 5. Hypertension. 6. Hyperlipidemia. 7. Diabetes mellitus type 2. 8. Hypothyroidism. 9. Rosacea. C 10. COVID-19 testing negative. Patient has been hospitalized during a pandemic. DISCHARGE PLAN Home without home care Greater than 35 minutes was utilized and coordinating patient's discharge. Impression and plan of care have been directed as dictated by the signing physician. Nicole Park nurse practitioner acting as scribe for signing physician. Plan - Discharge Summary Discharge Rx Participant: No New Discharge Prescriptions: New Loperamide [Imodium] 2 mg PO QID PRN cap PRN Reason: Diarrhea Furosemide [Lasix] 40 mg PO BID@0900,1600 #60 tab Sacubitril/Valsartan [Entresto 24 mg-26 mg Tablet] 1 each PO BID #60 tablet Continue Spironolactone [Aldactone] 12.5 mg PO DAILY@0900 Simvastatin [Zocor] 20 mg PO HS Magnesium Chloride [Mag64] 64 mg PO DAILY@0700 Amiodarone [Cordarone] 200 mg PO DAILY@0900 Levothyroxine Sodium [Synthroid] 25 mcg PO DAILY@0700 Warfarin [Coumadin] 1 mg PO SUTUTH@2099 Warfarin [Coumadin] 1.5 mg PO MOWEFRSA@2099 calcium polycarbophiL [Fibercon] 625 mg PO DAILY PRN PRN Reason: Constipation Doxycycline Hyclate 50 mg PO DAILY@0900 glipiZIDE [Glucotrol] 5 mg PO BID@0900,2100 Cetirizine HCl 10 mg PO DAILY PRN PRN Reason: Allergy Symptoms Metoprolol Succinate [Toprol XL] 100 mg PO DAILY@0900 Discontinued Furosemide [Lasix] 20 mg PO DAILY@1600 Furosemide [Lasix] 40 mg PO DAILY@0900 Discharge Medication List Magnesium Chloride [Mag64] 64 mg PO DAILY@0700 10/22/15 [History] Simvastatin [Zocor] 20 mg PO HS 10/22/15 [History] Spironolactone [Aldactone] 12.5 mg PO DAILY@0900 10/22/15 [History] Amiodarone [Cordarone] 200 mg PO DAILY@0900 11/24/15 [History] Levothyroxine Sodium [Synthroid] 25 mcg PO DAILY@0700 03/30/18 [History] Warfarin [Coumadin] 1 mg PO SUTUTH@2100 03/30/18 [History] Warfarin [Coumadin] 1.5 mg PO MOWEFRSA@2100 03/30/18 [History] calcium polycarbophiL [Fibercon] 625 mg PO DAILY PRN 11/19/18 [History] Cetirizine HCl 10 mg PO DAILY PRN 11/21/20 [History] Doxycycline Hyclate 50 mg PO DAILY@0900 11/21/20 [History] Metoprolol Succinate [Toprol XL] 100 mg PO DAILY@0900 11/21/20 [History] glipiZIDE [Glucotrol] 5 mg PO BID@0900,2100 11/21/20 [History] Furosemide [Lasix] 40 mg PO BID@0900,1600 #60 tab 12/24/20 [Rx] Loperamide [Imodium] 2 mg PO QID PRN cap 12/24/20 [Rx] Sacubitril/Valsartan [Entresto 24 mg-26 mg Tablet] 1 each PO BID #60 tablet 12/08 08/27 [Rx] Follow up Appointment(s)/Referral(s): [facility] [NON-STAFF] - (Call if interested in signing up for housekeeping services. ) Alberto Solomon MD [Primary Care Provider] - 1 Week (Office closed at time of discharge. Please call to schedule appointment) Ivan Rucker MD [STAFF PHYSICIAN] - 01/08/21 2:15 pm Patient Instructions/Handouts: Heart Failure (DC), Hypoxia (GEN) Discharge Disposition: HOME SELF-CARE
== END 2020-12-24 14:10 | disposition home or self-care (01) | DRG 291 ==
LOC: EC 23:01 → 4SSUR 12-20 01:11
PROVIDERS: ADMIT Internal Medicine Geriatric Medicine; ATTEND Internal Medicine Geriatric Medicine
PROC: 5A09357 Assistance with Respiratory Ventilation, Less than 24 Consecutive Hours, Continuous Positive Airway Pressure (ICD-10-PCS; principal; 2020-12-19)
DX: I13.0 Hypertensive heart and chronic kidney disease with heart failure and stage 1 through stage 4 chronic kidney disease, or unspecified chronic kidney disease (principal); I50.23 Acute on chronic systolic (congestive) heart failure; J96.01 Acute respiratory failure with hypoxia; I48.19 Other persistent atrial fibrillation; N18.4 Chronic kidney disease, stage 4 (severe); I42.8 Other cardiomyopathies; E03.9 Hypothyroidism, unspecified; E78.5 Hyperlipidemia, unspecified; I34.0 Nonrheumatic mitral (valve) insufficiency; E11.22 Type 2 diabetes mellitus with diabetic chronic kidney disease; J44.9 Chronic obstructive pulmonary disease, unspecified; L71.9 Rosacea, unspecified; Z20.822 Contact with and (suspected) exposure to COVID-19; Z79.01 Long term (current) use of anticoagulants; Z79.84 Long term (current) use of oral hypoglycemic drugs; Z79.890 Hormone replacement therapy; Z79.899 Other long term (current) drug therapy; Z80.3 Family history of malignant neoplasm of breast; Z80.51 Family history of malignant neoplasm of kidney; Z80.8 Family history of malignant neoplasm of other organs or systems; Z82.0 Family history of epilepsy and other diseases of the nervous system; Z82.5 Family history of asthma and other chronic lower respiratory diseases; Z85.828 Personal history of other malignant neoplasm of skin; Z90.710 Acquired absence of both cervix and uterus; Z95.810 Presence of automatic (implantable) cardiac defibrillator
CPT/HCPCS: 36415; 71045; 80048; 80053; 81003; 83605; 83615; 83735; 83880; 84484; 85025; 85610; 85730; 86140; 87635; 93005; 93306; 94640; 94660; 94760; 99285

== ENCOUNTER → 2021-01-21 | Outpatient (CLI) | payer MEDICARE, BC ==
[2021-01-21 21:02] LABS: African American GFR (CKD) 32.7 (60.0-200.0); Anion Gap 14.6 mmol/L (10.00-18.00); BUN/Creat Ratio 15.56 Ratio (12.00-20.00); Blood Urea Nitrogen 25.2 mg/dL (9.0-27.0); Calcium 9.2 mg/dL (8.7-10.3); Carbon Dioxide 26.5 mmol/L (20.0-27.5); Non-African American GFR(CKD) 28.3 (60.0-200.0); Potassium 3.8 mmol/L (3.5-5.5)
== END | disposition home or self-care (01) ==
LOC: LABWHC1 12:08
PROVIDERS: ATTEND Internal Medicine Cardiovascular Disease
DX: I50.9 Heart failure, unspecified (principal)
CPT/HCPCS: 36415; 80048

== ENCOUNTER → 2021-02-09 | Outpatient (CLI) | payer MEDICARE, BC ==
[2021-02-09 21:04] LABS: African American GFR (CKD) 30.5 (60.0-200.0); BUN/Creat Ratio 18.55 Ratio (12.00-20.00); Blood Urea Nitrogen 31.9 mg/dL (9.0-27.0); Calcium 9.5 mg/dL (8.7-10.3); Carbon Dioxide 23.6 mmol/L (20.0-27.5); Non-African American GFR(CKD) 26.3 (60.0-200.0)
== END | disposition home or self-care (01) ==
LOC: LABWHC1 11:13
PROVIDERS: ATTEND Internal Medicine Cardiovascular Disease
DX: I50.9 Heart failure, unspecified (principal)
CPT/HCPCS: 36415; 80048

== ENCOUNTER → 2021-04-21 | Outpatient (CLI) | payer MEDICARE, BC ==
[2021-04-21 19:22] LABS: ALT 29 U/L (8-44); AST 38 U/L (13-35); African American GFR (CKD) 28.1 (60.0-200.0); Albumin 4.1 g/dL (3.8-4.9); Albumin/Globulin Ratio 1.38 (1.60-3.17); Alkaline Phosphatase 65 U/L (41-126); Blood Urea Nitrogen 29.8 mg/dL (9.0-27.0); Calcium 9.7 mg/dL (8.7-10.3); Carbon Dioxide 25.5 mmol/L (20.0-27.5); Chloride 104 mmol/L (96-109); Chol/HDL Ratio 2.32 Ratio; Glucose 218 mg/dL (70-110); LDL Cholesterol,Calculated 50.5 mg/dL (0.0-131.0); Non-African American GFR(CKD) 24.2 (60.0-200.0); Potassium 4.1 mmol/L (3.5-5.5); Sodium 142 mmol/L (135-145); Total Protein 7.1 g/dL (6.2-8.2)
[2021-04-21 19:32] LABS: Basophils # (A) 0.05 X 10*3/uL (0.00-0.10); Basophils % (A) 0.8 %; Eosinophils # (A) 0.07 X 10*3/uL (0.04-0.35); Eosinophils % (A) 1.1 %; HCT 44.9 % (37.2-46.3); Immature Grans, Automated 0.5 %; Lymphocytes # (A) 1.62 X 10*3/uL (0.90-5.00); Lymphocytes % (A) 26.1 %; MCH 29.9 pg (27.0-32.0); MCHC 31.2 g/dL (32.0-37.0); MCV 95.9 fL (80.0-97.0); Monocytes % (A) 4.8 %; NRBC Per 100 WBC 0 /100 WBCS (0.0-0.0); Neutrophils # (A) 4.14 X 10*3/uL (1.80-7.70); Neutrophils % (A) 66.7 %; Platelet Count 159 X 10*3/uL (140-440); RBC 4.68 X 10*6/uL (4.10-5.20); RDW 15.6 % (11.5-14.5); WBC 6.21 X 10*3/uL (4.50-10.00)
== END | disposition home or self-care (01) ==
LOC: LABWHC1 11:14
PROVIDERS: ATTEND Internal Medicine Geriatric Medicine
DX: E11.65 Type 2 diabetes mellitus with hyperglycemia (principal); I42.9 Cardiomyopathy, unspecified; I48.0 Paroxysmal atrial fibrillation
CPT/HCPCS: 36415; 80053; 80061; 83036; 84439; 84443; 85025

== ENCOUNTER 2021-04-29 22:08 | Inpatient (IN) | payer MEDICARE, BC ==
[2021-04-29] MEDS ORDERED: SACUBITRIL/VALSARTAN 24 MG-26 MG TABLET PO STA (22:52)
--- NOTE | 2021-04-29 22:56 | ED ---
SOB HPI - General Chief Complaint: Shortness of Breath Stated Complaint: AMOS Time Seen by Provider: 04/29/21 22:43 Source: EMS Mode of arrival: EMS Limitations: no limitations - History of Present Illness Initial Comments: This patient is an 86-year-old woman reportedly with history of congestive heart failure who presents with shortness of breath is been going on since the morning. The patient states that she usually. Only uses supplemental oxygen at night but she has been require at all day in order to not feel dyspneic. Patient states that she was not able to go to bed tonight due to shortness of breath and therefore they called ambulance and came here. Patient denies chest pain. No fever or chills. No productive cough. She has noted bilateral leg edema. The patient had been started on BiPAP prior to my seeing her. She is feeling m uch better since starting that. MD Complaint: shortness of breath Onset/Timin -: hour(s) Severity scale (1-10): 0 Consistency: constant Improves With: nothing Worsens With: lying flat Known History Of: congestive heart failure Associated Symptoms: other (Swelling) Treatments Prior to Arrival: oxygen - Related Data Home Medications Medication Instructions Recorded Confirmed Magnesium Chloride [Mag64] 64 mg PO DAILY@0710/22/15 12/20/20 Simvastatin [Zocor] 20 mg PO HS 10/22/15 12/20/20 Spironolactone [Aldactone] 12.5 mg PO DAILY@0910/22/15 12/20/20 Amiodarone [Cordarone] 200 mg PO DAILY@0911/24/15 12/20/20 Levothyroxine Sodium [Synthroid] 25 mcg PO DAILY@69903/30/18 12/20/20 Warfarin [Coumadin] 1 mg PO SUTUTH@209903/30/18 12/20/20 Warfarin [Coumadin] 1.5 mg PO MOWEFRSA@209903/30/18 12/20/20 calcium polycarbophiL [Fibercon] 625 mg PO DAILY PRN 11/19/18 12/20/20 Cetirizine HCl 10 mg PO DAILY PRN 11/21/20 12/20/20 Doxycycline Hyclate 50 mg PO DAILY@0911/21/20 12/20/20 Metoprolol Succinate [Toprol XL] 100 mg PO DAILY@0900 11/21/20 12/20/20 glipiZIDE [Glucotrol] 5 mg PO BID@0900,2100 11/21/20 12/20/20 Previous Rx's Medication Instructions Recorded Furosemide [Lasix] 40 mg PO BID@0900,1600 #60 tab 12/24/20 Loperamide [Imodium] 2 mg PO QID PRN cap 12/24/20 Sacubitril/Valsartan [Entresto 24 1 each PO BID #60 tablet 12/24/20 mg-26 mg Tablet] Allergies Allergy/AdvReac Type Severity Reaction Status Date / Time quinidine Allergy Rash/Hives Verified 12/20/20 08:11 CLEAR PLASTIC TAPE Allergy Rash/Hives Uncoded 11/21/20 09:12 Review of Systems ROS Statement: Those systems with pertinent positive or pertinent negative responses have been documented in the HPI. ROS Other: All systems not noted in ROS Statement are negative. Constitutional: Denies: fever, chills Respiratory: Reports: cough, dyspnea. Denies: wheezes, hemoptysis Cardiovascular: Reports: orthopnea, edema. Denies: chest pain, palpitations, syncope Gastrointestinal: Denies: abdominal pain, nausea, vomiting, diarrhea, constipation Genitourinary: Denies: dysuria, hematuria Musculoskeletal: Denies: back pain Skin: Denies: rash Neurological: Denies: headache, weakness, numbness Past Medical History Past Medical History: Cancer, Heart Failure, Diabetes Mellitus, Hyperlipidemia, Osteoarthritis (OA), Skin Disorder, Vascular Disorder Additional Past Medical History / Comment(s): basal cell skin cancer, rash on face, History of Any Multi-Drug Resistant Organisms: None Reported Past Surgical History: AICD, Appendectomy, Bladder Surgery, Bowel Resection, Cholecystectomy, Heart Catheterization, Hysterectomy, Tonsillectomy, Tubal Ligation Additional Past Surgical History / Comment(s): venogram/fluoroscopy, neema cataracts, Past Anesthesia/Blood Transfusion Reactions: No Reported Reaction Type of Cardiac Device: AICD Device Placement Date:: 2007 Past Psychological History: No Psychological Hx Reported Smoking Status: Never smoker Past Alcohol Use History: None Reported Past Drug Use History: None Reported - Past Family History Father Family Medical History: Cancer Mother Family Medical History: Cancer Sister(s) Family Medical History: Cancer, Deep Vein Thrombosis (DVT) Additional Family Medical History / Comment(s): skin cancer Brother(s) History Unknown: Yes Family Medical History: Cancer Additional Family Medical History / Comment(s): skin cancer General Exam Limitations: no limitations General appearance: alert, anxious Head exam: Present: atraumatic, normocephalic Eye exam: Present: normal appearance. Absent: scleral icterus, conjunctival injection Neck exam: Present: normal inspection Respiratory exam: Present: respiratory distress, rales. Absent: normal lung sounds bilaterally, wheezes, rhonchi, stridor Cardiovascular Exam: Present: regular rate, normal rhythm, normal heart sounds. Absent: systolic murmur, diastolic murmur, rubs, gallop GI/Abdominal exam: Present: soft. Absent: distended, tenderness, guarding, rebound, rigid, mass Extremities exam: Present: normal inspection, normal capillary refill, pedal edema (Trace edema at the ankles bilaterally). Absent: calf tenderness Back exam: Present: normal inspection. Absent: CVA tenderness (R), CVA tenderness (L) Neurological exam: Present: alert Skin exam: Present: warm, dry, intact, normal color. Absent: rash Course Vital Signs 04/29/21 04/29/21 22:19 22:27 Temperature 97.6 F Pulse Rate 70 69 Respiratory 16 20 Rate Blood Pressure 125/78 124/77 O2 Sat by Pulse 86 L 91 L Oximetry Medical Decision Making - Lab Data Result diagrams: 04/29/21 22:55 Lab Results 04/29/21 Range/Units 22:55 WBC 8.9 (3.8-10.6) k/uL RBC 4.97 (3.80-5.40) m/uL Hgb 15.2 (11.4-16.0) gm/dL Hct 48.5 H (34.0-46.0) % MCV 97.6 (80.0-100.0) fL MCH 30.6 (25.0-35.0) pg MCHC 31.3 (31.0-37.0) g/dL RDW 14.6 (11.5-15.5) % Plt Count 167 (150-450) k/uL MPV 9.7 Neutrophils % 52 % Lymphocytes % 39 % Monocytes % 4 % Eosinophils % 1 % Basophils % 1 % Neutrophils # 4.6 (1.3-7.7) k/uL Lymphocytes # 3.5 (1.0-4.8) k/uL Monocytes # 0.4 (0-1.0) k/uL Eosinophils # 0.1 (0-0.7) k/uL Basophils # 0.1 (0-0.2) k/uL - EKG Data -: EKG Interpreted by Me Interpretation: other (Paced rhythm at 69 beats) Disposition Referrals: Alberto Solomon MD [Primary Care Provider] - 1-2 days
[2021-04-29 23:07] LABS: Basophils # (A) 0.1 k/uL (0-0.2); Basophils % (A) 1 %; Eosinophils # (A) 0.1 k/uL (0-0.7); Eosinophils % (A) 1 %; HCT 48.5 % (34.0-46.0); HGB 15.2 gm/dL (11.4-16.0); Lymphocytes # (A) 3.5 k/uL (1.0-4.8); Lymphocytes % (A) 39 %; MCH 30.6 pg (25.0-35.0); MCHC 31.3 g/dL (31.0-37.0); MCV 97.6 fL (80.0-100.0); Mean Platelet Volume 9.7; Monocytes # (A) 0.4 k/uL (0-1.0); Monocytes % (A) 4 %; Neutrophils # (A) 4.6 k/uL (1.3-7.7); Neutrophils % (A) 52 %; Platelet Count 167 k/uL (150-450); RBC 4.97 m/uL (3.80-5.40); RDW 14.6 % (11.5-15.5); WBC 8.9 k/uL (3.8-10.6)
[2021-04-29 23:21] LABS: INR 2.1 (<1.2)
[2021-04-29 23:27] LABS: Albumin 4.1 g/dL (3.5-5.0); Calcium 8.9 mg/dL (8.4-10.2); Magnesium 2.2 mg/dL (1.6-2.3); Potassium 4.6 mmol/L (3.5-5.1); Total Bilirubin 1.4 mg/dL (0.2-1.3)
--- NOTE | 2021-04-29 23:27 | XR ---
EXAMINATION TYPE: XR chest 1V portable DATE OF EXAM: 04/29/2021 COMPARISON: 12/23/2020 HISTORY: Short of breath TECHNIQUE: FINDINGS: Heart is enlarged. There is pulmonary vascular congestion. There is blunting of costophreni c angles and more on the right side. There is left axillary pacemaker. There are chest leads. IMPRESSION: Congestive heart failure with moderate pleural effusions. There is increasing pulmonary c ongestion and pleural fluid compared to old exam.
[2021-04-30] MEDS ORDERED: FUROSEMIDE 10 MG/ML 4 ML VIAL IV STA (01:11)
[2021-04-30 03:01] LABS: Appearance,Urine Clear (Clear); Bacteria,Urine Rare /hpf; Bilirubin,Urine Negative (Negative); Blood,Urine Negative (Negative); Color,Urine Yellow; Glucose,Urine (UA) Negative (Negative); Hyaline Casts,Urine 4 /lpf (0-2); Ketones,Urine Negative (Negative); Leukocyte Esterase,Urine Large (Negative); Mucus,Urine Rare /hpf; Nitrite,Urine Negative (Negative); Protein,Urine Trace (Negative); RBC,Urine 2 /hpf (0-5); Specific Gravity,Urine 1.012 (1.001-1.035); Squamous Epithelial Cell,Urine 1 /hpf (0-4); Transitional Epi Cells,Urine <1 /hpf (0-1); Urobilinogen,Urine <2.0 mg/dL (<2.0); WBC,Urine 21 /hpf (0-5)
--- NOTE | 2021-04-30 03:09 | P.HPIM ---
History of Present Illness H&P Date: 04/30/21 Chief Complaint: Shortness of breath at rest 86-year-old female with history of congestive heart failure Patient uses home oxygen at night however over the past day or 2 she's been struggling with breathing she's having increased shortness of breath even at rest while doing nothing. She is unable to lay flat and tonight when she tried to "sleep she couldn't due to shortness of breath and decided to come into the hospital for evaluation she also noticed bilateral leg edema. She denies any fevers or chills denies any coughing or runny nose denies any chest pain denies any abdominal pain denies any nausea vomiting or GI or urinary habits changes. In the ED chest x-ray showed pulmonary congestion with pleural effusion. Blood work overall unremarkable except for elevated lactic acid Patient is currently on BiPAP and gives limited history but denies any recent hospitalization or traveling denies any history of blood clots Review of Systems Pertinent positives as noted in HPI. All other systems were reviewed and are negative Past Medical History Past Medical History: Cancer, Heart Failure, Diabetes Mellitus, Hyperlipidemia, Osteoarthritis (OA), Skin Disorder, Vascular Disorder Additional Past Medical History / Comment(s): basal cell skin cancer, rash on face, History of Any Multi-Drug Resistant Organisms: None Reported Past Surgical History: AICD, Appendectomy, Bladder Surgery, Bowel Resection, Cholecystectomy, Heart Catheterization, Hysterectomy, Tonsillectomy, Tubal Ligation Additional Past Surgical History / Comment(s): venogram/fluoroscopy, neema cataracts, Past Anesthesia/Blood Transfusion Reactions: No Reported Reaction Type of Cardiac Device: AICD Device Placement Date:: 2007 Past Psychological History: No Psychological Hx Reported Smoking Status: Never smoker Past Alcohol Use History: None Reported Past Drug Use History: None Reported - Past Family History Father Family Medical History: Cancer Mother Family Medical History: Cancer Sister(s) Family Medical History: Cancer, Deep Vein Thrombosis (DVT) Additional Family Medical History / Comment(s): skin cancer Brother(s) History Unknown: Yes Family Medical History: Cancer Additional Family Medical History / Comment(s): skin cancer Medications and Allergies Home Medications Medication Instructions Recorded Confirmed Type Magnesium Chloride [Mag64] 64 mg PO DAILY@0700 10/22/15 04/29/21 History Simvastatin [Zocor] 20 mg PO HS@2100 10/22/1523/22 History Spironolactone [Aldactone] 12.5 mg PO DAILY@0910/22/15 04/29/21 History Amiodarone [Cordarone] 200 mg PO DAILY@0911/24/15 04/29/21 History Levothyroxine Sodium [Synthroid] 25 mcg PO DAILY@0700 03/30/18 04/29/21 History Warfarin [Coumadin] 1 mg PO SUTUTHSA@209903/30/18 04/29/21 History Warfarin [Coumadin] 1.5 mg PO MOWEFR@209903/30/18 04/29/21 History calcium polycarbophiL [Fibercon] 625 mg PO DAILY PRN 11/19/18 04/29/21 History Cetirizine HCl 10 mg PO DAILY PRN 11/21/20 04/29/21 History Doxycycline Hyclate 50 mg PO DAILY@0900 11/21/20 04/29/21 History Metoprolol Succinate [Toprol XL] 100 mg PO DAILY@0911/21/20 04/29/21 History glipiZIDE [Glucotrol] 5 mg PO BID@0900,209911/21/20 04/29/21 History Furosemide [Lasix] 40 mg PO BID@0900,1600 #60 tab 12/24/20 04/29/21 Rx Clindamycin Gel [Cleocin T 1% Gel] 1 applic TOPICAL DIRECTED 04/29/21 04/29/21 History Loperamide [Imodium] 2 mg PO BID@0900,209904/29/21 04/29/21 History Sacubitril/Valsartan [Entresto 24 1 tab PO BID@0900,209904/29/21 04/29/21 History mg-26 mg Tablet] Triamcinolone 0.1% Ointment 1 applic TOPICAL DAILY@89904/29/21 04/29/21 History [Kenalog 0.1% Ointment] Allergies Allergy/AdvReac Type Severity Reaction Status Date / Time quinidine Allergy Rash/Hives Verified 04/29/21 23:24 CLEAR PLASTIC TAPE Allergy Rash/Hives Uncoded 11/21/20 09:12 Physical Exam Vitals: Vital Signs Temp Pulse Pulse Resp BP BP Pulse Ox 04/30/21 02:11 71 20 102/67 97 04/30/21 01:58 98.3 F 86 21 114/70 95 04/30/21 00:32 70 20 107/67 97 04/29/21 22:27 69 20 124/77 91 L 04/29/21 22:19 97.6 F 70 16 125/78 86 L Intake and Output 04/29/21 04/29/21 04/30/21 14:59 22:59 06:59 Other: Weight 150 kg 150 kg Constitutional: No acute distress, gives limited history, pleasant, wearing BiPAP Eyes: Anicteric sclerae, moist conjunctiva, Pupils equal round reactive to light ENMT: NC/AT Neck: Supple, , no masses, positive JVD No carotid bruits No thyromegaly Lungs: Decreased breath sounds at right mid and lower lungs, with inspiratory rales Clear to percussion Normal respiratory effort, no accessory muscle use Cardiovascular: Heart regular in rate and rhythm, No murmurs, gallops, or rubs Trace peripheral edema bilaterally Abdominal: Soft Nontender, no guarding, rebound or rigidity Abdomen moving with respiration Normoactive bowel sounds No hepatomegaly, No splenomegaly No palpable mass No abdominal wall hernia noted Skin: Normal temperature, tone, texture, turgor No induration No subcutaneous nodules No rash, lesions No ulcers Extremities: No digital cyanosis No clubbing Pedal pulses intact and symmetrical Radial pulses intact and symmetrical No calf tenderness Psychiatric: Alert and oriented to person, place Appropriate affect fair judgement Neuro Muscles Strength 4/5 in all 4 extremities Sensation to light touch grossly present throughout Cranial nerves II-XII grossly intact No focal sensory deficits Lymphatics: no palpable cervical or supraclavicular , or inguinal lymph nodes Results CBC & Chem 7: 04/29/21 22:55 04/29/21 22:55 Labs: Abnormal Lab Results - Last 24 Hours (Table) 04/29/21 04/29/21 04/29/21 Range/Units 02:29 22:55 22:55 Hct 48.5 H (34.0-46.0) % PT 21.0 H (9.0-12.0) sec INR 2.1 H (<1.2) D-Dimer 0.67 H (<0.60) mg/L FEU BUN (7-17) mg/dL Creatinine (0.52-1.04) mg/dL Glucose (74-99) mg/dL Plasma Lactic Acid Alex (0.7-2.0) mmol/L Total Bilirubin (0.2-1.3) mg/dL AST (14-36) U/L ALT (4-34) U/L Urine Protein Trace H (Negative) Ur Leukocyte Esterase Large H (Negative) Urine WBC 21 H (0-5) /hpf Urine Bacteria Rare H (None) /hpf Hyaline Casts 4 H (0-2) /lpf Urine Mucus Rare H (None) /hpf 04/29/21 04/29/21 Range/Units 22:55 22:55 Hct (34.0-46.0) % PT (9.0-12.0) sec INR (<1.2) D-Dimer (<0.60) mg/L FEU BUN 36 H (7-17) mg/dL Creatinine 1.65 H (0.52-1.04) mg/dL Glucose 270 H (74-99) mg/dL Plasma Lactic Acid Alex 3.0 H* (0.7-2.0) mmol/L Total Bilirubin 1.4 H (0.2-1.3) mg/dL AST 78 H (14-36) U/L ALT 35 H (4-34) U/L Urine Protein (Negative) Ur Leukocyte Esterase (Negative) Urine WBC (0-5) /hpf Urine Bacteria (None) /hpf Hyaline Casts (0-2) /lpf Urine Mucus (None) /hpf Thrombosis Risk Factor Assmnt - Choose All That Apply Each Factor Represents 1 point: Heart failure (<1month), Swollen legs (current) Other Risk Factors: Yes Each Risk Factor Represents 3 Points: Age 75 years or older Other congenital or acquired thrombophilia - If yes, enter type in comment: No Thrombosis Risk Factor Assessment Total Risk Factor Score: 5 Thrombosis Risk Factor Assessment Level: High Risk Assessment and Plan Assessment: Acute CHF exacerbation IV Lasix twice a day Resume home diuretics Monitor urine output Monitor vital signs Cardiology consult Trend troponins initial negative BNP elevated Strict I's and O's Supplemental oxygen as needed Patient currently on BiPAP Chest x-ray excited reviewed showed pleural effusion and pulmonary congestion Chronic conditions Congestive heart failure, diabetes mellitus, Resume home medications CODE STATUS patient couldn't decide DVT prophylaxis patient on Coumadin for his A. fib Anticipated length of stay more than 2 midnights
[2021-04-30] MEDS ORDERED: WARFARIN 1 MG TAB PO ONE ×2 (03:30→18:00)
[2021-04-30 05:40] LABS: Glucose,Whole Blood 204 mg/dL (75-99)
[2021-04-30] MEDS: LEVOTHYROXINE 25 MCG TAB PO SCH (06:34)
[2021-04-30] MEDS: SODIUM CHLORIDE 0.9% 1,000 ML IV SCH (06:34)
[2021-04-30] MEDS: INSULIN ASPART (NovoLOG) 100 UNIT/ML VIAL SQ SCH ×3 (06:35→17:16)
--- NOTE | 2021-04-30 08:27 | P.CRDCN ---
History of Present Illness Consult date: 04/30/21 History of present illness: HISTORY OF PRESENT ILLNESS: This is a 86-year-old female with a past medical history significant for nonischemic cardiomyopathy with previous AICD implantation, permanent atrial fibrillation, severe mitral regurgitation, diabetes, congestive heart failure, hyperlipidemia, and hypothyroidism. Patient follows in the office with Dr. Rucker. We have been asked to see the patient in consultation for congestive heart failure. Patient examined at the bedside. Patient presented to the hospital with a chief complaint of shortness of breath. Patient states for the past 2 days she has become increasingly short of breath. She states that she tried wearing her oxygen at home but her shortness of breath did not imp rove. She denied any chest pain or pressure. Denies any fever or chills. The patient was found to be in acute CHF and was started on IV Lasix. She states her breathing has improved this morning. She is currently wearing a BiPAP at the time of examination. * EKG reveals ventricular paced rhythm * Chest xray congestive heart failure with moderate pleural effusions. There is increasing pulmonary congestion and pleural fluid compared to old exam. * Laboratory data: WBC 8.9. Hemoglobin 15.2. Platelet count 167. D-dimer 0.67. Sodium 140. Potassium 4.6. BUN 36. Creatinine 1.65. Lactic acid 3.0. Repeat 2.0. Troponin negative 3. ProBNP 15,800. * Current home cardiac medications include amiodarone 200 mg daily, metoprolol succinate 100 mg daily, Aldactone 12.5 mg daily, Lasix 40 mg twice a day, simvastatin 20 mg at night, warfarin 1 mg Tuesday and 1.5 mg Tuesday, and Entresto 24-26mg BID. * Most recent echocardiogram obtained in December 2020 revealed ejection fraction 20-25% with severe MR * Cardiac catheterization history: 2007 revealing normal coronary arteries REVIEW OF SYSTEMS: At the time of my exam: CONSTITUTIONAL: Denies fever or chills. HEENT: Denies blurred vision, vision changes, or eye pain. Denies hemoptysis CARDIOVASCULAR: Denies chest pain. Denies orthopnea. Denies PND. Denies palpitat ions RESPIRATORY: Denies shortness of breath. GASTROINTESTINAL: Denies abdominal pain. Denies nausea or vomiting. HEMATOLOGIC: Denies bleeding disorders. GENITOURINARY: Denies any blood in urine. SKIN: Denies pruitis. Denies rash. PHYSICAL EXAM: VITAL SIGNS: Reviewed. GENERAL: Well-developed in no acute distress. HEENT: Head is normocephalic. Pupils are equal, round. Sclerae anicteric. Mucous membranes of the mouth are moist. Neck supple. No JVD or thyromegaly LUNGS: Respirations even and unlabored. Lungs diminished bilaterally with crackles at the bases. HEART: Regular rate and rhythm. S1 and S2 heard. Systolic murmur noted. ABDOMEN: Soft. Nondistended. Nontender. EXTREMITIES: Normal range of motion. No clubbing or cyanosis. Peripheral pulses intact. Trace ankle lower extremity edema NEUROLOGIC: Awake and alert. Oriented x 3. ASSESSMENT: Shortness of breath Acute on chronic congestive heart failure with reduced EF, 20-25% Bilateral pleural effusions Permanent atrial fibrillation fibrillation Nonischemic cardiomyopathy with previous AICD implantation Hyperlipidemia Severe mitral regurgitation Chronic kidney disease Diabetes Hypothyroidism PLAN: No need to repeat echo as this was performed in December 2020 Continue home cardiac medications Increase Lasix to 40 mg every 8 hours Accurate I&O Daily weights Monitor kidney function Repeat chest x-ray in a.m. Patient may require thoracentesis if she does not adequately diurese Further recommendations pending patient course Nurse practitioner note has been reviewed by physician. Signing provider agrees with the documented findings, assessment, and plan of care. Past Medical History Past Medical History: Cancer, Heart Failure, Diabetes Mellitus, Hyperlipidemia, Osteoarthritis (OA), Skin Disorder, Vascular Disorder Additional Past Medical History / Comment(s): basal cell skin cancer, rash on face, History of Any Multi-Drug Resistant Organisms: None Reported Past Surgical History: AICD, Appendectomy, Bladder Surgery, Bowel Resection, Cholecystectomy, Heart Catheterization, Hysterectomy, Tonsillectomy, Tubal Ligation Additional Past Surgical History / Comment(s): venogram/fluoroscopy, neema cataracts, Past Anesthesia/Blood Transfusion Reactions: No Reported Reaction Type of Cardiac Device: AICD Device Placement Date:: 2007 Past Psychological History: No Psychological Hx Reported Smoking Status: Never smoker Past Alcohol Use History: None Reported Past Drug Use History: None Reported - Past Family History Father Family Medical History: Cancer Mother Family Medical History: Cancer Sister(s) Family Medical History: Cancer, Deep Vein Thrombosis (DVT) Additional Family Medical History / Comment(s): skin cancer Brother(s) History Unknown: Yes Family Medical History: Cancer Additional Family Medical History / Comment(s): skin cancer Medications and Allergies Home Medications Medication Instructions Recorded Confirmed Type Magnesium Chloride [Mag64] 64 mg PO DAILY@0700 10/22/15 04/29/21 History Simvastatin [Zocor] 20 mg PO HS@209910/22/15 04/29/21 History Spironolactone [Aldactone] 12.5 mg PO DAILY@89910/22/15 04/29/21 History Amiodarone [Cordarone] 200 mg PO DAILY@89911/24/15 04/29/21 History Levothyroxine Sodium [Synthroid] 25 mcg PO DAILY@69903/30/18 04/29/21 History Warfarin [Coumadin] 1 mg PO SUTUTHSA@209903/30/18 04/29/21 History Warfarin [Coumadin] 1.5 mg PO MOWEFR@209903/30/18 04/29/21 History calcium polycarbophiL [Fibercon] 625 mg PO DAILY PRN 11/19/18 04/29/21 History Cetirizine HCl 10 mg PO DAILY PRN 11/21/20 04/29/21 History Doxycycline Hyclate 50 mg PO DAILY@0900 11/21/20 04/29/21 History Metoprolol Succinate [Toprol XL] 100 mg PO DAILY@0900 11/21/20 04/29/21 History glipiZIDE [Glucotrol] 5 mg PO BID@0900,209911/21/20 04/29/21 History Furosemide [Lasix] 40 mg PO BID@0900,1600 #60 tab 12/24/20 04/29/21 Rx Clindamycin Gel [Cleocin T 1% Gel] 1 applic TOPICAL DIRECTED 04/29/21 04/29/21 History Loperamide [Imodium] 2 mg PO BID@0900,209904/29/21 04/29/21 History Sacubitril/Valsartan [Entresto 24 1 tab PO BID@0900,209904/29/21 04/29/21 History mg-26 mg Tablet] Triamcinolone 0.1% Ointment 1 applic TOPICAL DAILY@0900 04/29/21 04/29/21 History [Kenalog 0.1% Ointment] Allergies Allergy/AdvReac Type Severity Reaction Status Date / Time quinidine Allergy Rash/Hives Verified 04/29/21 23:24 CLEAR PLASTIC TAPE Allergy Rash/Hives Uncoded 11/21/20 09:12 Physical Exam Vitals: Vital Signs Temp Pulse Pulse Resp BP BP Pulse Ox 04/30/21 02:11 71 20 102/67 97 04/30/21 02:00 70 21 04/30/21 01:58 98.3 F 86 21 114/70 95 04/30/21 00:32 70 20 107/67 97 04/29/21 22:27 69 20 124/77 91 L 04/29/21 22:19 97.6 F 70 16 125/78 86 L Intake and Output 04/29/21 04/30/21 04/30/21 22:59 06:59 14:59 Output Total 200 Balance -200 Output: Urine 200 Other: Weight 150 kg 68.8 kg Results 04/29/21 22:55 04/29/21 22:55 Cardiac Enzymes 04/29/21 04/29/21 04/30/21 Range/Units 22:55 22:55 02:39 AST 78 H (14-36) U/L Troponin I <0.012 <0.012 (0.000-0.034) ng/mL 04/30/21 Range/Units 05:35 AST (14-36) U/L Troponin I <0.012 (0.000-0.034) ng/mL Coagulation 04/29/21 Range/Units 22:55 PT 21.0 H (9.0-12.0) sec APTT 27.0 (22.0-30.0) sec CBC 04/29/21 Range/Units 22:55 WBC 8.9 (3.8-10.6) k/uL RBC 4.97 (3.80-5.40) m/uL Hgb 15.2 (11.4-16.0) gm/dL Hct 48.5 H (34.0-46.0) % Plt Count 167 (150-450) k/uL Comprehensive Metabolic Panel 04/29/21 Range/Units 22:55 Sodium 140 (137-145) mmol/L Potassium 4.6 (3.5-5.1) mmol/L Chloride 104 (98-107) mmol/L Carbon Dioxide 26 (22-30) mmol/L BUN 36 H (7-17) mg/dL Creatinine 1.65 H (0.52-1.04) mg/dL Glucose 270 H (74-99) mg/dL Calcium 8.9 (8.4-10.2) mg/dL AST 78 H (14-36) U/L ALT 35 H (4-34) U/L Alkaline Phosphatase 83 (38-126) U/L Total Protein 7.0 (6.3-8.2) g/dL Albumin 4.1 (3.5-5.0) g/dL Current Medications Generic Name Dose Route Start Last Admin Trade Name Freq PRN Reason Stop Dose Admin Amiodarone HCl 200 mg 04/30/21 09:00 Amiodarone 200 Mg Tab PO DAILY@0900 [facility] Atorvastatin Calcium 10 mg 04/30/21 21:00 Atorvastatin 10 Mg Tab PO HS@2100 [facility] Furosemide 40 mg 04/30/21 09:00 Furosemide 10 Mg/Ml 4 Ml Vial IV Q12H [facility] Sodium Chloride 1,000 mls @ 20 mls/hr 04/30/21 01:15 04/30/21 06:34 Saline 0.9% IV Not Given .Q24H [facility] Insulin Aspart 0 unit 04/30/21 07:30 04/30/21 06:35 Insulin Aspart (Novolog) 100 Unit/Ml Vial SQ 2 unit ACHS [facility] Administration Protocol Levothyroxine Sodium 25 mcg 04/30/21 07:00 04/30/21 06:34 Levothyroxine 25 Mcg Tab PO 25 mcg DAILY@0700 [facility] Administration Metoprolol Succinate 100 mg 04/30/21 09:00 Metoprolol Succinate (Er) 100 Mg Tab.Er.24h PO DAILY@0900 [facility] Miscellaneous Information 1 each 04/30/21 03:00 Warfarin Per Pharmacy MISCELLANE DIRECTED PRN Per Protocol Protocol Sacubitril/Valsartan 1 each 04/30/21 09:00 Sacubitril/Valsartan 24 Mg-26 Mg Tablet PO BID@0900,2100 [facility] Spironolactone 12.5 mg 04/30/21 09:00 Spironolactone 25 Mg Tab PO DAILY@0900 [facility] Intake and Output 03/04/30/21 04/30/21 22:59 06:59 14:59 Output Total 200 Balance -200 Output: Urine 200 Other: Weight 150 kg 68.8 kg 04/29/21 22:55 04/29/21 22:55
[2021-04-30] MEDS: SACUBITRIL/VALSARTAN 24 MG-26 MG TABLET PO SCH (08:29)
[2021-04-30] MEDS: AMIODARONE 200 MG TAB PO SCH (08:29)
[2021-04-30] MEDS: SPIRONOLACTONE 25 MG TAB PO SCH (08:29)
[2021-04-30] MEDS: METOPROLOL SUCCINATE (ER) 100 MG TAB.ER.24H PO SCH (08:29)
[2021-04-30] MEDS: FUROSEMIDE 10 MG/ML 4 ML VIAL IV SCH ×3 (08:30→20:00)
[2021-04-30] MEDS ORDERED: FUROSEMIDE 10 MG/ML 4 ML VIAL IV SCH (09:00)
[2021-04-30 11:41] VITALS: BMI 25.2
[2021-04-30 11:44] LABS: Glucose,Whole Blood 229 mg/dL (75-99)
[2021-04-30 16:48] LABS: Glucose,Whole Blood 183 mg/dL (75-99)
--- NOTE | 2021-04-30 18:37 | P.PN ---
Progress Note - Text Progress Note Date: 04/30/21 Hospitalist Interval Note Patient seen and examined at bedside. He feels much better than at admission. Breathing is easier. No longer coughing. No chest pain. Vital signs reviewed General: non toxic, no distress, appears at stated age Derm: warm, dry Head: atraumatic, normocephalic, symmetric Eyes: EOMI, no lid lag, anicteric sclera Mouth: no lip lesion, mucus membranes moist Cardiovascular: S1S2 reg, no murmur, positive posterior tibial pulse bilateral, Lungs: [Rhonchi right base greater than left, no accessory muscle use Abdominal: soft, nontender to palpation, no guarding, no appreciable organomegaly Ext: no gross muscle atrophy, trace edema, no contractures Neuro: CN II-XI grossly intact, no focal neuro deficits Psych: Alert, oriented, appropriate affect Assessment/Plan: Acute exacerbation of systolic congestive heart failure , ejection fraction 20- 25% Right-sided pleural effusion -Continue with diuresis -Repeat chest x-ray in a.m. if continues to have significant right-sided pleural effusion consider pulmonary consultation. This is an update note for patient , for full note on 04/30 see H and P. There is no charge associated with this note.
[2021-04-30] MEDS: ATORVASTATIN 10 MG TAB PO SCH (20:00)
[2021-04-30 20:05] LABS: Glucose,Whole Blood 169 mg/dL (75-99)
[2021-05-01] MEDS: INSULIN ASPART (NovoLOG) 100 UNIT/ML VIAL SQ SCH ×5 (01:11→20:32)
[2021-05-01] MEDS: SACUBITRIL/VALSARTAN 24 MG-26 MG TABLET PO SCH ×3 (01:12→13:32)
[2021-05-01 06:10] LABS: Glucose,Whole Blood 161 mg/dL (75-99)
[2021-05-01] MEDS: LEVOTHYROXINE 25 MCG TAB PO SCH (06:26)
--- NOTE | 2021-05-01 06:56 | XR ---
EXAMINATION TYPE: XR chest 2V DATE OF EXAM: 05/01/2021 COMPARISON: Chest x-ray 2 days earlier. HISTORY: CHF. TECHNIQUE: Frontal and lateral views of the chest are obtained. FINDINGS: Persistent cardiomegaly with multilead pacemaker/defibrillator. Persistent moderate size ri ght and tiny size left pleural effusions with associated bibasilar atelectasis and/or infiltrates. IMPRESSION: Persistent cardiomegaly with central vascular congestion along with moderate size right and tiny size left pleural effusions. Associated bibasilar atelectasis and/or infiltrates. Consider C T evaluation to rule out underlying mass due to asymmetry of the pleural effusions.
[2021-05-01] MEDS: FUROSEMIDE 10 MG/ML 4 ML VIAL IV SCH ×2 (09:40→20:37)
[2021-05-01] MEDS: METOPROLOL SUCCINATE (ER) 100 MG TAB.ER.24H PO SCH (09:40)
[2021-05-01] MEDS: AMIODARONE 200 MG TAB PO SCH (09:40)
[2021-05-01] MEDS: SPIRONOLACTONE 25 MG TAB PO SCH (09:40)
[2021-05-01 09:49] LABS: HGB 13.1 gm/dL (11.4-16.0); MCH 31.2 pg (25.0-35.0); MCHC 32.1 g/dL (31.0-37.0); MCV 97.4 fL (80.0-100.0); Mean Platelet Volume 9.7; Platelet Count 134 k/uL (150-450); RBC 4.21 m/uL (3.80-5.40); RDW 14.7 % (11.5-15.5); WBC 10.2 k/uL (3.8-10.6)
[2021-05-01 09:57] LABS: Calcium 8.9 mg/dL (8.4-10.2); Magnesium 2.2 mg/dL (1.6-2.3); Potassium 4.3 mmol/L (3.5-5.1); Prothrombin Time 19.8 sec (9.0-12.0)
--- NOTE | 2021-05-01 10:47 | CDI ---
Documentation Clarification Form Date: 05/01/2021 10:34:44 AM From: Maribel Kang CCS, CCDS Admit Date: 04/30/2021 01:08:00 AM Patient Name: Azalea Tellez Visit Number: [id number] Discharge Date: ATTENTION: The Clinical Documentation Specialists (CDI) and [facility] Coding Staff appreciate your assistance in clarifying documentation. Please respond to the clarification below the line at the bottom and electronically sign. The CDI & [facility] Coding staff will review the response and follow-up if needed. Please note: Queries are made part of the Legal Health Record. If you have any questions, please contact the author of this message via ITS. Dr. Ximena Pat: Chronic kidney disease is documented in the 04/30 Cardiology Consult and is not documented elsewhere in the record, Nephrology is not consulted. Please clarify the diagnosis of CKD. History/Risk Factors per the 04/30 H/P: CHF, CHF, DM, Hyperlipidemia, Osteoarthritis, Basal Cell Skin Cancer on the face, AICD. Clinical Indicators: Presented to the ED on 04/29 via EMS with SOB with history of CHF, bilateral leg edema. Admit with CHF Exacerbation 04/29 VS: T 97.6, P 70, R 16, BP 125/78, PO 86 4L, put on BiPAP 60L w/PO 91. 04/29 LAB: Hct 48.5; PT 21.0, INR 2.1, D Dimer 0.67; BUN 36, Creatinine 1.65, Glucose 270, Lactic Acid 3.0, 2.0; Total bili 1.4, AST 78, ALT 35 04/29 UA: Clear, Trace Protein, Large Esterase, WBC 21 04/29 CXR: CHF with moderate pleural effusion. There is increasing pulmonary congestion and pleural fluid. 05/01 GFR 23, 27 Historical GFR 33, 40 Treatment 04/29: Heart Failure protocol, Callejas catheter, O2 2Lnc, po Entresto x1, IV Lasix 40 mg x1, po Coumadin 1 mg x1, po Toprol 100 mg Daily, po Aldactone 12.5 mg Daily Is there an additional diagnosis and/or clinical significance related to the above lab result/information? [ ] CKD Stage 3b (GFR 30-44) [ ] CKD Stage 4 (GFR 15-29) [ xx] Other, please specify: _Refer to PCP [ ] Unable to determine (Template Last Revised: March 2020) MTDD
--- NOTE | 2021-05-01 11:07 | P.PN ---
Subjective Progress Note Date: 05/01/21 HISTORY OF PRESENT ILLNESS: This is a 86-year-old female with a past medical history significant for nonischemic cardiomyopathy with previous AICD implantation, permanent atrial fibrillation, severe mitral regurgitation, diabetes, congestive heart failure, hyperlipidemia, and hypothyroidism. Patient follows in the office with Dr. Rucker. We have been asked to see the patient in consultation for congestive heart failure. Patient examined at the bedside. Patient presented to the hospital with a chief complaint of shortness of breath. Patient states for the past 2 days she has become increasingly short of breath. She states that she tried wearing her oxygen at home but her shortness of breath did not improve. She denied any chest pain or pressure. Denies any fever or chills. The patient was found to be in acute CHF and was started on IV Lasix. She states her breathing has improved this morning. She is currently wearing a BiPAP at the time of examination. * EKG reveals ventricular paced rhythm * Chest xray congestive heart failure with moderate pleural effusions. There is increasing pulmonary congestion and pleural fluid compared to old exam. * Laboratory data: WBC 8.9. Hemoglobin 15.2. Platelet count 167. D-dimer 0.67. Sodium 140. Potassium 4.6. BUN 36. Creatinine 1.65. Lactic acid 3.0. Repeat 2.0. Troponin negative 3. ProBNP 15,800. * Current home cardiac medications include amiodarone 200 mg daily, metoprolol succinate 100 mg daily, Aldactone 12.5 mg daily, Lasix 40 mg twice a day, simvastatin 20 mg at night, warfarin 1 mg Tuesday and 1.5 mg Tuesday, and Entresto 24-26mg BID. * Most recent echocardiogram obtained in December 2020 revealed ejection fraction 20-25% with severe MR * Cardiac catheterization history: 2007 revealing normal coronary arteries 05/01/2021 Patient examined this point the bedside. Patient denies chest pain or pressure. She continues to report shortness of breath with exertion. She denies shortness of breath at rest. She remains on IV Lasix 40 mg every 8 hours. Creatinine today is increased to 1.90. Repeat proBNP today is 12,900. Chest x- ray reveals persistent cardiomegaly with central vascular congestion along with moderate sized right and tiny left pleural effusions. PHYSICAL EXAM: VITAL SIGNS: Reviewed. GENERAL: Well-developed in no acute distress. HEENT: Head is normocephalic. Pupils are equal, round. Sclerae anicteric. Mucous membranes of the mouth are moist. Neck supple. No JVD or thyromegaly LUNGS: Respirations even and unlabored. Lungs diminished bilaterally with crackles at the bases. HEART: Regular rate and rhythm. S1 and S2 heard. Systolic murmur noted. ABDOMEN: Soft. Nondistended. Nontender. EXTREMITIES: Normal range of motion. No clubbing or cyanosis. Peripheral pulses intact. Trace ankle lower extremity edema NEUROLOGIC: Awake and alert. Oriented x 3. ASSESSMENT: Shortness of breath Acute on chronic congestive heart failure with reduced EF, 20-25% Bilateral pleural effusions Permanent atrial fibrillation Nonischemic cardiomyopathy with previous AICD implantation Hyperlipidemia Severe mitral regurgitation Acute on Chronic kidney disease Diabetes Hypothyroidism PLAN: Continue current cardiac medications Decrease IV Lasix to 40 mg every 12 hours Accurate I&O Daily weights Monitor kidney function Further recommendations pending patient course Nurse practitioner note has been reviewed by physician. Signing provider agrees with the documented findings, assessment, and plan of care. Objective - Vital Signs Vital signs: Vital Signs Temp 97.7 F 05/01/21 09:15 Pulse 69 05/01/21 09:15 Resp 18 05/01/21 09:15 BP 101/64 05/01/21 09:15 Pulse Ox 97 05/01/21 09:15 Intake & Output 04/30/21 05/01/21 05/01/21 18:59 06:59 18:59 Intake Total 240 240 560 Output Total 1225 Balance -985 240 560 Weight 68.8 kg 70 kg Intake: Oral 240 240 560 Output: Urine 1225 Other: # Voids 3 - Labs CBC & Chem 7: 05/01/21 08:47 05/01/21 08:47 Labs: Abnormal Lab Results - Last 24 Hours (Table) 04/30/21 04/30/21 04/30/21 Range/Units 11:42 16:46 20:04 Plt Count (150-450) k/uL PT (9.0-12.0) sec INR (<1.2) BUN (7-17) mg/dL Creatinine (0.52-1.04) mg/dL Glucose (74-99) mg/dL POC Glucose (mg/dL) 229 H 183 H 169 H (75-99) mg/dL 05/01/21 05/01/21 05/01/21 Range/Units 06:08 08:47 08:47 Plt Count 134 L (150-450) k/uL PT (9.0-12.0) sec INR (<1.2) BUN 49 H (7-17) mg/dL Creatinine 1.90 H (0.52-1.04) mg/dL Glucose 166 H (74-99) mg/dL POC Glucose (mg/dL) 161 H (75-99) mg/dL 05/01/21 Range/Units 08:47 Plt Count (150-450) k/uL PT 19.8 H (9.0-12.0) sec INR 2.0 H (<1.2) BUN (7-17) mg/dL Creatinine (0.52-1.04) mg/dL Glucose (74-99) mg/dL POC Glucose (mg/dL) (75-99) mg/dL
[2021-05-01 11:52] LABS: Glucose,Whole Blood 164 mg/dL (75-99)
[2021-05-01 16:17] LABS: Glucose,Whole Blood 131 mg/dL (75-99)
[2021-05-01] MEDS ORDERED: WARFARIN 1 MG TAB PO SCH (18:00)
--- NOTE | 2021-05-01 19:14 | P.PN ---
Subjective Progress Note Date: 05/01/21 (delayed charting seen at 0930) Principal diagnosis: shortness of breath Patient is an 78-year-old female past medical history of systolic congestive heart failure, diabetes, and dyslipidemia who presented with complaints of shortness of breath. In the ER she underwent an extensive evaluation was ultimately found to have a large right-sided pleural effusion with acute exacerbation of congestive heart failure. She was admitted and started on Lasix. Cardiology was consulted patient did not require repeat echocardiogram has she had one recently. She was started on entresto. Patient seen and examined at bedside. She reports that she is having some improvement in her shortness of breath. She is not having any cough. No nausea or vomiting. We discussed the reasons for her current medications and she is in agreement with plan of care. General: non toxic, no distress, appears at stated age Derm: warm, dry Head: atraumatic, normocephalic, symmetric Eyes: EOMI, no lid lag, anicteric sclera Mouth: no lip lesion, mucus membranes moist Cardiovascular: S1S2 reg, no murmur, positive posterior tibial pulse bilateral, Lungs: Decreased breath sounds right base , no accessory muscle use Abdominal: soft, nontender to palpation, no guarding, no appreciable o rganomegaly Ext: no gross muscle atrophy, trace edema, no contractures Neuro: CN II-XI grossly intact, no focal neuro deficits Psych: Alert, oriented, appropriate affect Assessment/plan: Acute exacerbation of systolic congestive heart failure EF 30-35% Right pleural effusion Permanent A fib - continue with lasix, aldactone - cardio recs: entresto - strict I and O - Continued R pleural effusion consult pulm regarding possible thoar - daily weights - coumadin pharmacy to dose - amio , metoprolol CKD IV - at baseline GFRof 25 - monitor cloely with entresto Diabetes mellitus type 2 -On oral medications -sliding-scale insulin - A1C 7 Dyslipidemia - statin Transaminitis - suspect due to hepatic congestion - conitnue to monitor DVT prophylaxis: Coumadin Discussed with: Patient, nursing Anticipated discharge: 3-[address]: home with home health A total of 45 minutes was spent on the care of this complex patient more than 50% of the time was spent in counseling and care coordination. Objective - Vital Signs Vital signs: Vital Signs Temp 97.2 F L 05/01/21 13:30 Pulse 72 05/01/21 17:15 Resp 18 05/01/21 17:15 BP 98/57 05/01/21 17:15 Pulse Ox 97 05/01/21 17:15 Intake & Output 05/01/21 05/01/21 05/02/21 06:59 18:59 06:59 Intake Total 240 1040 Output Total 740 Balance 240 300 Weight 70 kg Intake: Oral 240 1040 Output: Urine 740 Other: # Voids 3 - Labs CBC & Chem 7: 05/01/21 08:47 05/01/21 08:47 Labs: Abnormal Lab Results - Last 24 Hours (Table) 04/30/21 05/01/21 05/01/21 Range/Units 20:04 06:08 08:47 Plt Count (150-450) k/uL PT (9.0-12.0) sec INR (<1.2) BUN 49 H (7-17) mg/dL Creatinine 1.90 H (0.52-1.04) mg/dL Glucose 166 H (74-99) mg/dL POC Glucose (mg/dL) 169 H 161 H (75-99) mg/dL 05/01/21 05/01/21 05/01/21 Range/Units 08:47 08:47 11:50 Plt Count 134 L (150-450) k/uL PT 19.8 H (9.0-12.0) sec INR 2.0 H (<1.2) BUN (7-17) mg/dL Creatinine (0.52-1.04) mg/dL Glucose (74-99) mg/dL POC Glucose (mg/dL) 164 H (75-99) mg/dL 05/01/21 Range/Units 16:15 Plt Count (150-450) k/uL PT (9.0-12.0) sec INR (<1.2) BUN (7-17) mg/dL Creatinine (0.52-1.04) mg/dL Glucose (74-99) mg/dL POC Glucose (mg/dL) 131 H (75-99) mg/dL
[2021-05-01 20:19] LABS: Glucose,Whole Blood 94 mg/dL (75-99)
[2021-05-01] MEDS: SODIUM CHLORIDE 0.9% 1,000 ML IV SCH (20:32)
[2021-05-01] MEDS: ATORVASTATIN 10 MG TAB PO SCH (20:38)
[2021-05-02] MEDS: SACUBITRIL/VALSARTAN 24 MG-26 MG TABLET PO SCH ×3 (00:40→21:22)
[2021-05-02] MEDS: SODIUM CHLORIDE 0.9% 1,000 ML IV SCH (03:02)
[2021-05-02] MEDS: LEVOTHYROXINE 25 MCG TAB PO SCH (07:06)
[2021-05-02 07:07] LABS: Glucose,Whole Blood 117 mg/dL (75-99)
[2021-05-02] MEDS: INSULIN ASPART (NovoLOG) 100 UNIT/ML VIAL SQ SCH ×4 (07:07→21:21)
--- NOTE | 2021-05-02 08:07 | US ---
EXAMINATION TYPE: US chest DATE OF EXAM: 05/02/2021 COMPARISON: NONE CLINICAL HISTORY: Markings for thoracentesis by pulmonary staff. Exam done portable TECHNIQUE: Targeted ultrasound of the posterior lower bilateral hemithoraces EXAM MEASUREMENTS: Right Pleural Effusion pocket size: 15.4 cm Right skin surface to fluid distance: 2.6 cm Left Pleural Effusion pocket size: 1.8 cm Left skin surface to fluid distance: 2.4 cm Right side marked for possible thoracentesis outside the dept. Left side not marked for possible thoracentesis outside the dept. Pulmonologists are able to review the images in the patient?s EMR. IMPRESSIONS: Small bilateral effusions .
[2021-05-02] MEDS: FUROSEMIDE 10 MG/ML 4 ML VIAL IV SCH ×2 (09:07→19:39)
[2021-05-02] MEDS: SPIRONOLACTONE 25 MG TAB PO SCH (09:08)
[2021-05-02] MEDS: AMIODARONE 200 MG TAB PO SCH (09:08)
[2021-05-02] MEDS: METOPROLOL SUCCINATE (ER) 100 MG TAB.ER.24H PO SCH (09:08)
[2021-05-02 11:27] LABS: Glucose,Whole Blood 238 mg/dL (75-99)
[2021-05-02 11:39] LABS: Prothrombin Time 20.5 sec (9.0-12.0)
[2021-05-02 11:42] LABS: Calcium 8.6 mg/dL (8.4-10.2); Magnesium 2.2 mg/dL (1.6-2.3); Potassium 3.6 mmol/L (3.5-5.1)
--- NOTE | 2021-05-02 13:11 | P.CNPUL ---
History of Present Illness Consult date: 05/02/21 Requesting physician: Deirdre Mccall Reason for consult: dyspnea, abnormal CXR/CT Chief complaint: Shortness of breath History of present illness: This is a very pleasant 86-year-old female patient with a known history of congestive heart failure and home oxygen, atrial fibrillation anticoagulated with warfarin, hypothyroidism, diabetes mellitus, hyperlipidemia, AICD placement. She presented here to the emergency room on 04/29/2022 with complaints of increasing shortness of breath and orthopnea. Increased lower extremity edema. She was initially placed on BiPAP and admitted to the [facility] ective care unit. Yesterday his chest x-ray showed persistent cardiomegaly with central vascular congestion and a moderate right and small left pleural effusions. Associated basilar atelectasis/infiltrate. We are consulted for the same. She is seen today currently resting comfortably in bed. Awake and alert in no acute distress. Does have some dyspnea on minimal exertion. He is maintaining good O2 saturations in the mid 90s on 3 L/m per nasal cannula. Afebrile. Hemodynamically stable. INR 2.0. Sodium 140. Potassium 3.6. BUN 49. Creatinine 1.74. Glucose 228. ProBNP 12,900. White count 10.2. Hemoglobin 13.1. She's been initiated on IV diuretics. Ultrasound of the chest revealed a 15.4 cm pocket on the right and 1.8 cm pocket on the left. The right pleural effusion did demonstrate some lung tissue within the fluid. Review of Systems REVIEW OF SYSTEMS: CONSTITUTIONAL: Denies any recent significant weight loss or weight gain. EYES: Denies change in vision. EARS, NOSE, MOUTH, THROAT: Denies headaches, denies sore throat. CARDIOVASCULAR: Denies chest pain, palpitations or syncopal episodes. RESPIRATORY: Positive for shortness of breath, cough, congestion no hemoptysis. GASTROINTESTINAL: Denies change in appetite, denies abdominal pain GENITOURINARY: Denies hematuria, denies infections. MUSKULOSKELETAL: Positive for lower extremity edema. INTEGUMENTARY: Denies rash, denies eczema. NEUROLOGICAL: Denies recent memory loss, no recent seizure activity. PSYCHIATRIC: Denies anxiety, denies depression. HEMATOLOGIC/LYMPHATIC: Denies anemia, denies enlarged lymph nodes. Past Medical History Past Medical History: Cancer, Heart Failure, Diabetes Mellitus, Hyperlipidemia, Osteoarthritis (OA), Skin Disorder, Vascular Disorder Additional Past Medical History / Comment(s): basal cell skin cancer, rash on face, History of Any Multi-Drug Resistant Organisms: None Reported Past Surgical History: AICD, Appendectomy, Bladder Surgery, Bowel Resection, Cholecystectomy, Heart Catheterization, Hysterectomy, Tonsillectomy, Tubal Li gation Additional Past Surgical History / Comment(s): venogram/fluoroscopy, neema cataracts, Past Anesthesia/Blood Transfusion Reactions: No Reported Reaction Type of Cardiac Device: AICD Device Placement Date:: 2007 Past Psychological History: No Psychological Hx Reported Smoking Status: Never smoker Past Alcohol Use History: None Reported Past Drug Use History: None Reported - Past Family History Father Family Medical History: Cancer Mother Family Medical History: Cancer Sister(s) Family Medical History: Cancer, Deep Vein Thrombosis (DVT) Additional Family Medical History / Comment(s): skin cancer Brother(s) History Unknown: Yes Family Medical History: Cancer Additional Family Medical History / Comment(s): skin cancer Medications and Allergies Home Medications Medication Instructions Recorded Confirmed Type Magnesium Chloride [Mag64] 64 mg PO DAILY@69910/22/15 04/29/21 History Simvastatin [Zocor] 20 mg PO HS@209910/22/15 04/29/21 History Spironolactone [Aldactone] 12.5 mg PO DAILY@89910/22/15 04/29/21 History Amiodarone [Cordarone] 200 mg PO DAILY@89911/24/15 04/29/21 History Levothyroxine Sodium [Synthroid] 25 mcg PO DAILY@69903/30/18 04/29/21 History Warfarin [Coumadin] 1 mg PO SUTUTHSA@209903/30/18 04/29/21 History Warfarin [Coumadin] 1.5 mg PO MOWEFR@209903/30/18 04/29/21 History calcium polycarbophiL [Fibercon] 625 mg PO DAILY PRN 11/19/18 04/29/21 History Cetirizine HCl 10 mg PO DAILY PRN 11/21/20 04/29/21 History Doxycycline Hyclate 50 mg PO DAILY@89911/21/20 04/29/21 History Metoprolol Succinate [Toprol XL] 100 mg PO DAILY@89911/21/20 04/29/21 History glipiZIDE [Glucotrol] 5 mg PO BID@0900,2100 11/21/20 04/29/21 History Furosemide [Lasix] 40 mg PO BID@0900,1600 #60 tab 12/24/20 04/29/21 Rx Clindamycin Gel [Cleocin T 1% Gel] 1 applic TOPICAL DIRECTED 04/29/21 04/29/21 History Loperamide [Imodium] 2 mg PO BID@0900,2100 04/29/21 04/29/21 History Sacubitril/Valsartan [Entresto 24 1 tab PO BID@0900,2100 04/29/21 04/29/21 History mg-26 mg Tablet] Triamcinolone 0.1% Ointment 1 applic TOPICAL DAILY@0900 04/29/21 04/29/21 History [Kenalog 0.1% Ointment] Allergies Allergy/AdvReac Type Severity Reaction Status Date / Time quinidine Allergy Rash/Hives Verified 04/29/21 23:24 CLEAR PLASTIC TAPE Allergy Rash/Hives Uncoded 11/21/20 09:12 Physical Exam Vitals: Vital Signs Temp Pulse Resp BP Pulse Ox 05/02/21 08:30 95 05/02/21 08:00 97.5 F L 70 18 114/55 94 L 05/02/21 04:00 98.5 F 77 18 94/51 94 L 05/02/21 02:00 71 18 05/02/21 00:36 98.6 F 71 18 97/51 93 L 05/01/21 20:00 96.4 F L 71 18 98/53 93 L 05/01/21 19:56 94 L 05/01/21 17:15 72 18 98/57 97 05/01/21 14:00 70 20 05/01/21 13:30 97.2 F L 70 20 103/56 97 Intake and Output 05/01/21 05/02/21 05/02/21 22:59 06:59 14:59 Intake Total 240 350 118 Output Total 500 1100 Balance -260 -750 118 Intake: Oral 240 350 118 Output: Urine 500 1100 Other: # Voids 1 Weight 68.3 kg GENERAL EXAM: Alert, pleasant 86-year-old female patient, on 3 L nasal cannula, fairly comfortable in no apparent distress. HEAD: Normocephalic. EYES: Normal reaction of pupils, equal size. NOSE: Clear with pink turbinates. THROAT: No erythema or exudates. NECK: No masses, no JVD. CHEST: No chest wall deformity. LUNGS: Equal air entry with crackles in the posterior bases right greater than left, diminished CVS: S1 and S2 normal with an audible murmur, paced regular rhythm. ABDOMEN: No hepatosplenomegaly, normal bowel sounds, no guarding or rigidity. SPINE: No scoliosis or deformity SKIN: No rashes CENTRAL NERVOUS SYSTEM: No focal deficits, tone is normal in all 4 extremities. EXTREMITIES: There is 1+ peripheral edema. No clubbing, no cyanosis. Perip heral pulses are intact. Results - Laboratory Findings CBC and BMP: 05/01/21 08:47 05/02/21 10:53 PT/INR, D-dimer PT 20.5 sec (9.0-12.0) H 05/02/21 10:53 INR 2.0 (<1.2) H 05/02/21 10:53 D-Dimer 0.67 mg/L FEU (<0.60) H 04/29/21 22:55 Abnormal lab findings: Abnormal Labs 04/29/21 04/29/21 04/29/21 02:29 22:55 22:55 Hct 48.5 H Plt Count PT 21.0 H INR 2.1 H D-Dimer 0.67 H Carbon Dioxide BUN Creatinine Glucose POC Glucose (mg/dL) Plasma Lactic Acid Alex Total Bilirubin AST ALT Urine Protein Trace H Ur Leukocyte Esterase Large H Urine WBC 21 H Urine Bacteria Rare H Hyaline Casts 4 H Urine Mucus Rare H 04/29/21 04/29/21 04/30/21 22:55 22:55 05:37 Hct Plt Count PT INR D-Dimer Carbon Dioxide BUN 36 H Creatinine 1.65 H Glucose 270 H POC Glucose (mg/dL) 204 H Plasma Lactic Acid Alex 3.0 H* Total Bilirubin 1.4 H AST 78 H ALT 35 H Urine Protein Ur Leukocyte Esterase Urine WBC Urine Bacteria Hyaline Casts Urine Mucus 04/30/21 04/30/21 04/30/21 11:42 16:46 20:04 Hct Plt Count PT INR D-Dimer Carbon Dioxide BUN Creatinine Glucose POC Glucose (mg/dL) 229 H 183 H 169 H Plasma Lactic Acid Alex Total Bilirubin AST ALT Urine Protein Ur Leukocyte Esterase Urine WBC Urine Bacteria Hyaline Casts Urine Mucus 05/01/21 05/01/21 05/01/21 06:08 08:47 08:47 Hct Plt Count 134 L PT INR D-Dimer Carbon Dioxide BUN 49 H Creatinine 1.90 H Glucose 166 H POC Glucose (mg/dL) 161 H Plasma Lactic Acid Alex Total Bilirubin AST ALT Urine Protein Ur Leukocyte Esterase Urine WBC Urine Bacteria Hyaline Casts Urine Mucus 05/01/21 05/01/21 05/01/21 08:47 11:50 16:15 Hct Plt Count PT 19.8 H INR 2.0 H D-Dimer Carbon Dioxide BUN Creatinine Glucose POC Glucose (mg/dL) 164 H 131 H Plasma Lactic Acid Alex Total Bilirubin AST ALT Urine Protein Ur Leukocyte Esterase Urine WBC Urine Bacteria Hyaline Casts Urine Mucus 05/02/21 05/02/21 05/02/21 07:06 10:53 10:53 Hct Plt Count PT 20.5 H INR 2.0 H D-Dimer Carbon Dioxide 32 H BUN 49 H Creatinine 1.74 H Glucose 228 H POC Glucose (mg/dL) 117 H Plasma Lactic Acid Alex Total Bilirubin AST ALT Urine Protein Ur Leukocyte Esterase Urine WBC Urine Bacteria Hyaline Casts Urine Mucus 05/02/21 11:25 Hct Plt Count PT INR D-Dimer Carbon Dioxide BUN Creatinine Glucose POC Glucose (mg/dL) 238 H Plasma Lactic Acid Alex Total Bilirubin AST ALT Urine Protein Ur Leukocyte Esterase Urine WBC Urine Bacteria Hyaline Casts Urine Mucus - Diagnostic Findings Chest x-ray: image reviewed Assessment and Plan Assessment: 1 Acute on chronic hypoxemic respiratory failure secondary to an acute exacerbation of systolic congestive heart failure and bilateral pleural effusions right greater than left 2 Acute exacerbation of chronic systolic congestive heart failure. Ejection fraction 20-25% 3 History of severe mitral regurgitation 4 Severe cardiomyopathy status post AICD placement. 5 History of atrial fibrillation anticoagulated with warfarin 6 Diabetes mellitus 7 Hyperlipidemia 8 Nonsmoker 9 Hypothyroidism Plan: The patient was seen and evaluated Chest x-ray, ultrasound of the chest and labs reviewed No plans for thoracentesis due to lung tissue floating within the pleural effusion Currently stable and on 3 L nasal cannula Continue with IV diuretics Follow-up chest x-ray in a.m. We will continue to follow and make further recommendations based on her clinical status I have personally seen and examined the patient, performed the documentation and the assessment and plan as written. Number of minutes spent on the visit: 20.
--- NOTE | 2021-05-02 15:18 | P.PN ---
Subjective Progress Note Date: 05/02/21 PROGRESS NOTE The patient is an 86-year-old female with known history of severe mitral regurgitation, persistent atrial fibrillation, nonischemic myopathy and ICD implantation who presented with worsening dyspnea. She is feeling better today. Her breathing is better. She denies any chest discomfort. She is able to walk to the bathroom and back without significant dyspnea although not back to her baseline. She denies any PND or orthopnea. She continues to be on amiodarone 200 mg daily, Lipitor 10 mg daily, Lasix 40 mg IV every 12, metoprolol succinate 100 mg daily, Aldactone 12-1/2 mg daily, Entresto and 426 twice a day. PHYSICAL EXAMINATION: Blood pressure 103/57 heart rate 70 LUNGS: No wheezes with decreased breath sounds at the bases HEART: [Irregular rate and rhythm, S1, S2. No S3. Holosystolic murmur at the apex] ABDOMEN: [Soft, nontender, no organomegaly] EXTREMETIES: [No edema] LAB: INR 2.0, BUN and creatinine 49 and 1.74 IMPRESSION: 1. CHF with known cardiomyopathy, improving 2. Chronic persistent atrial fibrillation 3. Status post ICD 4. Mitral regurgitation 5. Renal failure improving PLAN: 1. Continue IV diuretics for 24 hours 2. Resume anticoagulation 3. Follow renal functions 4. If stable probable discharge in 24-48 hours. Objective - Vital Signs Vital signs: Vital Signs Temp 97.5 F L 05/02/21 08:00 Pulse 71 05/02/21 12:00 Resp 16 05/02/21 12:00 BP 103/57 05/02/21 12:00 Pulse Ox 98 05/02/21 12:00 Intake & Output 05/01/21 05/02/21 05/02/21 18:59 06:59 18:59 Intake Total 1040 350 118 Output Total 740 1100 Balance 300 -750 118 Weight 68.3 kg Intake: Oral 1040 350 118 Output: Urine 740 1100 Other: # Voids 1 - Labs CBC & Chem 7: 05/01/21 08:47 05/02/21 10:53 Labs: Abnormal Lab Results - Last 24 Hours (Table) 05/01/21 05/02/21 05/02/21 Range/Units 16:15 07:06 10:53 PT 20.5 H (9.0-12.0) sec INR 2.0 H (<1.2) Carbon Dioxide (22-30) mmol/L BUN (7-17) mg/dL Creatinine (0.52-1.04) mg/dL Glucose (74-99) mg/dL POC Glucose (mg/dL) 131 H 117 H (75-99) mg/dL 05/02/21 05/02/21 Range/Units 10:53 11:25 PT (9.0-12.0) sec INR (<1.2) Carbon Dioxide 32 H (22-30) mmol/L BUN 49 H (7-17) mg/dL Creatinine 1.74 H (0.52-1.04) mg/dL Glucose 228 H (74-99) mg/dL POC Glucose (mg/dL) 238 H (75-99) mg/dL
--- NOTE | 2021-05-02 15:47 | P.PN ---
Subjective Progress Note Date: 05/02/21 (delayed charting seen at 1245) Principal diagnosis: shortness of breath Patient is an 78-year-old female past medical history of systolic congestive heart failure, diabetes, and dyslipidemia who presented with complaints of shortness of breath. In the ER she underwent an extensive evaluation was ultimately found to have a large right-sided pleural effusion with acute exacerbation of congestive heart failure. She was admitted and started on Lasix. Cardiology was consulted patient did not require repeat echocardiogram has she had one recently. She was started on entresto. She continued to progress well. Pulmonary was consulted. She underwent a chest ultrasound but was not a candidate for thoracentesis. Patient seen and examined at bedside. She is feeling slightly better sitting was able to get up and pressure to. She is not having any cough. She is eating and drinking well. We discussed that she is likely to have these exacerbations again. She feels frustrated because she called the cardiology office and was told she could go to hospital she felt necessary. General: non toxic, no distress, appears at stated age Derm: warm, dry Head: atraumatic, normocephalic, symmetric Eyes: EOMI, no lid lag, anicteric sclera Mouth: no lip lesion, mucus membranes moist Cardiovascular: S1S2 reg, no murmur, positive posterior tibial pulse bilateral, Lungs: Decreased breath sounds right base , no accessory muscle use Abdominal: soft, nontender to palpation, no guarding, no appreciable organomegaly Ext: no gross muscle atrophy, trace edema, no contractures Neuro: CN II-XI grossly intact, no focal neuro deficits Psych: Alert, oriented, appropriate affect Assessment/plan: Acute exacerbation of systolic congestive heart failure EF 30-35% Right pleural effusion Permanent A fib - continue with lasix, aldactone - cardio recs: entresto - strict I and O - Continued R pleural effusion seen by pulmonary and not a candidate for thora - daily weights - coumadin pharmacy to dose - amio , metoprolol CKD IV - at baseline GFRof 25 - monitor closely with entresto Diabetes mellitus type 2 -On oral medications -sliding-scale insulin - A1C 7 Dyslipidemia - statin Transaminitis - suspect due to hepatic congestion - conitnue to monitor DVT prophylaxis: Coumadin Discussed with: Patient, nursing Anticipated discharge: in 1-[address]: home with home health A total of 45 minutes was spent on the care of this complex patient more than 50% of the time was spent in counseling and care coordination. Objective - Vital Signs Vital signs: Vital Signs Temp 97.5 F L 05/02/21 08:00 Pulse 71 05/02/21 12:00 Resp 16 05/02/21 12:00 BP 103/57 05/02/21 12:00 Pulse Ox 98 05/02/21 12:00 Intake & Output 05/01/21 05/02/21 05/02/21 18:59 06:59 18:59 Intake Total 1040 350 236 Output Total 740 1100 Balance 300 -750 236 Weight 68.3 kg Intake: Oral 1040 350 236 Output: Urine 740 1100 Other: # Voids 1 3 # Bowel Movements 1 - Labs CBC & Chem 7: 05/01/21 08:47 05/02/21 10:53 Labs: Abnormal Lab Results - Last 24 Hours (Table) 05/01/21 05/02/21 05/02/21 Range/Units 16:15 07:06 10:53 PT 20.5 H (9.0-12.0) sec INR 2.0 H (<1.2) Carbon Dioxide (22-30) mmol/L BUN (7-17) mg/dL Creatinine (0.52-1.04) mg/dL Glucose (74-99) mg/dL POC Glucose (mg/dL) 131 H 117 H (75-99) mg/dL 05/02/21 05/02/21 Range/Units 10:53 11:25 PT (9.0-12.0) sec INR (<1.2) Carbon Dioxide 32 H (22-30) mmol/L BUN 49 H (7-17) mg/dL Creatinine 1.74 H (0.52-1.04) mg/dL Glucose 228 H (74-99) mg/dL POC Glucose (mg/dL) 238 H (75-99) mg/dL
[2021-05-02 16:18] LABS: Glucose,Whole Blood 77 mg/dL (75-99)
[2021-05-02] MEDS ORDERED: WARFARIN 1.5 MG TAB PO ONE (18:00)
[2021-05-02] MEDS: ATORVASTATIN 10 MG TAB PO SCH (19:39)
[2021-05-02 20:02] LABS: Glucose,Whole Blood 154 mg/dL (75-99)
[2021-05-02] MEDS: INSULIN DETEMIR (LEVEMIR) 100 UNIT/ML SYR SQ SCH (21:21)
[2021-05-03] MEDS: SODIUM CHLORIDE 0.9% 1,000 ML IV SCH (03:56)
[2021-05-03] MEDS: INSULIN ASPART (NovoLOG) 100 UNIT/ML VIAL SQ SCH ×4 (06:07→20:56)
[2021-05-03] MEDS: LEVOTHYROXINE 25 MCG TAB PO SCH (06:08)
[2021-05-03 06:37] LABS: Glucose,Whole Blood 91 mg/dL (75-99)
[2021-05-03] MEDS: METOPROLOL SUCCINATE (ER) 100 MG TAB.ER.24H PO SCH (08:28)
[2021-05-03] MEDS: SACUBITRIL/VALSARTAN 24 MG-26 MG TABLET PO SCH ×2 (08:28→20:57)
[2021-05-03] MEDS: AMIODARONE 200 MG TAB PO SCH (08:28)
[2021-05-03] MEDS: FUROSEMIDE 10 MG/ML 4 ML VIAL IV SCH ×2 (08:28→20:10)
[2021-05-03] MEDS: SPIRONOLACTONE 25 MG TAB PO SCH (08:28)
[2021-05-03 10:01] LABS: HGB 13.9 gm/dL (11.4-16.0); INR 1.8 (<1.2); MCH 31.6 pg (25.0-35.0); MCHC 32.4 g/dL (31.0-37.0); MCV 97.5 fL (80.0-100.0); Mean Platelet Volume 9.2; Platelet Count 147 k/uL (150-450); Prothrombin Time 18.6 sec (9.0-12.0); RBC 4.41 m/uL (3.80-5.40); RDW 14.9 % (11.5-15.5); WBC 6.1 k/uL (3.8-10.6)
--- NOTE | 2021-05-03 10:20 | XR ---
EXAMINATION TYPE: XR chest 2V DATE OF EXAM: 05/03/2021 COMPARISON: 05/01/2021 INDICATION: Pleural effusion TECHNIQUE: Single frontal view of the chest is obtained. FINDINGS: The heart size is normal. The pulmonary vasculature is normal. There is a moderate right pleural effusion. Very minimal left pleural effusion is not excluded. Pacem radha overlies left chest. Findings appear stable from comparison. IMPRESSION: 1. Moderate right pleural effusion. Continued follow-up is recommended.
[2021-05-03 10:34] LABS: Calcium 8.6 mg/dL (8.4-10.2); Magnesium 2.3 mg/dL (1.6-2.3); Potassium 3.5 mmol/L (3.5-5.1)
--- NOTE | 2021-05-03 11:39 | P.PN ---
Subjective Progress Note Date: 05/03/21 Principal diagnosis: Acute exacerbation of systolic congestive heart failure This is a very pleasant 86-year-old female patient with a known history of congestive heart failure and home oxygen, atrial fibrillation anticoagulated with warfarin, hypothyroidism, diabetes mellitus, hyperlipidemia, AICD placement. She presented here to the emergency room on 04/29/2022 with complai nts of increasing shortness of breath and orthopnea. Increased lower extremity edema. She was initially placed on BiPAP and admitted to the selective care unit. Yesterday his chest x-ray showed persistent cardiomegaly with central vascular congestion and a moderate right and small left pleural effusions. Associated basilar atelectasis/infiltrate. We are consulted for the same. She is seen today currently resting comfortably in bed. Awake and alert in no acute distress. Does have some dyspnea on minimal exertion. He is maintaining good O2 saturations in the mid 90s on 3 L/m per nasal cannula. Afebrile. Hemodynamically stable. INR 2.0. Sodium 140. Potassium 3.6. BUN 49. Creatin ine 1.74. Glucose 228. ProBNP 12,900. White count 10.2. Hemoglobin 13.1. She's been initiated on IV diuretics. Ultrasound of the chest revealed a 15.4 cm pocket on the right and 1.8 cm pocket on the left. The right pleural effusion did demonstrate some lung tissue within the fluid. Reevaluated today on 05/03/2021, clinically the patient is doing great, she has hardly any cough no wheezing no shortness of breath, chest x-ray continues to show moderate sized pleural effusion, however her ultrasound was not the best quality ultrasound, and the pictures noted showed lung tissue floating in the fluid pocket, hence I was a bit reluctant to perform thoracentesis, not to mention the patient is doing better clinically. Patient continues to diurese with Lasix, I am considering repeating ultrasound on this patient in the morning, and based on the ultrasound findings may have to do thoracentesis or at least defer to interventional radiology to do it would live ultrasound in place. This will be decided upon tomorrow. In the meantime the patient is doing great, and clinically much better. Objective - Vital Signs Vital signs: Vital Signs Temp 97.6 F 05/03/21 08:00 Pulse 74 05/03/21 08:00 Resp 18 05/03/21 08:00 BP 102/60 05/03/21 08:00 Pulse Ox 96 05/03/21 08:00 Intake & Output 05/02/21 05/03/21 05/03/21 18:59 06:59 18:59 Intake Total 236 600 118 Output Total 600 1400 400 Balance -364 -800 -282 Weight 66.7 kg Intake: Oral 236 600 118 Output: Urine 600 1400 400 Other: # Voids 3 # Bowel Movements 1 - Exam Physical Exam revealed 86-year-old female in no distress on 2 L nasal cannula. O2 sats is 96%. Head: Atraumatic, normocephalic. HEENT:[Neck is supple.] [No neck masses.] [No thyromegaly.] [No JVD.] Chest: [Symmetrical chest expansion slightly diminished breath sounds and dullness at the right base. Cardiac Exam: [Normal S1 and S2, no S3 gallop, no murmur.] Abdomen: [Soft, nontender, no megaly, no rebound, no guarding, normal bowel sounds.] Extremities: [No clubbing, no edema, no cyanosis.] Neurological Exam: [No focal neurologic deficit.] Oriented 3. Psychiatric: Normal mood affect and normal mental status examination. Skin: No rashes. - Labs CBC & Chem 7: 05/03/21 08:33 05/03/21 08:33 Labs: Abnormal Lab Results - Last 24 Hours (Table) 05/02/21 05/02/21 05/02/21 Range/Units 10:53 10:53 20:01 Plt Count (150-450) k/uL PT 20.5 H (9.0-12.0) sec INR 2.0 H (<1.2) Carbon Dioxide 32 H (22-30) mmol/L BUN 49 H (7-17) mg/dL Creatinine 1.74 H (0.52-1.04) mg/dL Glucose 228 H (74-99) mg/dL POC Glucose (mg/dL) 154 H (75-99) mg/dL 05/03/21 05/03/21 05/03/21 Range/Units 08:33 08:33 08:33 Plt Count 147 L (150-450) k/uL PT 18.6 H (9.0-12.0) sec INR 1.8 H (<1.2) Carbon Dioxide 35 H (22-30) mmol/L BUN 39 H (7-17) mg/dL Creatinine 1.55 H (0.52-1.04) mg/dL Glucose 123 H (74-99) mg/dL POC Glucose (mg/dL) (75-99) mg/dL Assessment and Plan Assessment: 1 Acute on chronic hypoxemic respiratory failure secondary to an acute exacerbation of systolic congestive heart failure and bilateral pleural effusions right greater than left 2 Acute exacerbation of chronic systolic congestive heart failure. Ejection fraction 20-25% 3 History of severe mitral regurgitation 4 Severe cardiomyopathy status post AICD placement. 5 History of atrial fibrillation anticoagulated with warfarin 6 Diabetes mellitus 7 Hyperlipidemia 8 Nonsmoker 9 Hypothyroidism Plan: Continue present treatment plan. Continue diuretics. Repeat ultrasound of the chest in a.m. and may or may not performed thoracentesis depending on the ultrasound findings may even consider having interventional radiology do the thoracentesis would like ultrasound in place. Overall the patient is doing great clinically, and she to be discharged probably in the next 24 hours. We'll continue to follow Time with Patient: Less than 30
[2021-05-03 11:42] LABS: Glucose,Whole Blood 135 mg/dL (75-99)
--- NOTE | 2021-05-03 14:05 | P.PN ---
Subjective Patient was examined at bedside today states that she has some shortness of breath when laying down flat which she was during my examination. I did personally check her oxygenation is currently 97% on 2 L. She did discuss the plan with pulmonary regarding getting a repeat ultrasound tomorrow morning. Case also discussed with RN present at bedside. All questions have been answered. Patient is agreeable and resting comfortably. Objective - Vital Signs Vital signs: Vital Signs Temp 97.6 F 05/03/21 08:00 Pulse 72 05/03/21 11:57 Resp 16 05/03/21 11:57 BP 103/66 05/03/21 11:57 Pulse Ox 96 05/03/21 11:57 Intake & Output 05/02/21 05/03/21 05/03/21 18:59 06:59 18:59 Intake Total 236 600 118 Output Total 600 1400 400 Balance -364 -800 -282 Weight 66.7 kg Intake: Oral 236 600 118 Output: Urine 600 1400 400 Other: # Voids 3 # Bowel Movements 1 - Exam General: non toxic, no distress, appears at stated age Derm: warm, dry Head: atraumatic, normocephalic, symmetric Eyes: EOMI, no lid lag, anicteric sclera Mouth: no lip lesion, mucus membranes moist Cardiovascular: S1S2 reg, no murmur, positive posterior tibial pulse bilateral, Lungs: Decreased breath sounds right base , no accessory muscle use Abdominal: soft, nontender to palpation, no guarding, no appreciable organomegaly Ext: no gross muscle atrophy, trace edema, no contractures Neuro: CN II-XI grossly intact, no focal neuro deficits Psych: Alert, oriented, appropriate affect - Labs CBC & Chem 7: 05/03/21 08:33 05/03/21 08:33 Labs: Abnormal Lab Results - Last 24 Hours (Table) 05/02/21 05/03/21 05/03/21 Range/Units 20:01 08:33 08:33 Plt Count (150-450) k/uL PT 18.6 H (9.0-12.0) sec INR 1.8 H (<1.2) Carbon Dioxide 35 H (22-30) mmol/L BUN 39 H (7-17) mg/dL Creatinine 1.55 H (0.52-1.04) mg/dL Glucose 123 H (74-99) mg/dL POC Glucose (mg/dL) 154 H (75-99) mg/dL 05/03/21 05/03/21 Range/Units 08:33 11:40 Plt Count 147 L (150-450) k/uL PT (9.0-12.0) sec INR (<1.2) Carbon Dioxide (22-30) mmol/L BUN (7-17) mg/dL Creatinine (0.52-1.04) mg/dL Glucose (74-99) mg/dL POC Glucose (mg/dL) 135 H (75-99) mg/dL Assessment and Plan Assessment: Assessment/plan: Acute exacerbation of systolic congestive heart failure EF 30-35% Right pleural effusion Permanent A fib - Continue with Lasix 40 mg twice a day. Anticipating repeat chest ultrasound to evaluate for thoracentesis as per pulmonary. - cardio recs: entresto, strict I and O - coumadin pharmacy to dose - INR 1.8 CKD IV - at baseline GFRof 25 - monitor closely with entresto Diabetes mellitus type 2 -On oral medications -sliding-scale insulin - A1C 7 Dyslipidemia - statin Transaminitis - suspect due to hepatic congestion - conitnue to monitor we'll order repeat CMP tomorrow morning. DVT prophylaxis: Coumadin Discussed with: Patient, nursing Anticipated discharge: in 1-2 days pending thoracentesis Anticipated discharge place: home with home health
--- NOTE | 2021-05-03 14:54 | P.PN ---
Subjective Progress Note Date: 05/03/21 PROGRESS NOTE The patient is an 86-year-old female with known history of severe mitral regurgitation, persistent atrial fibrillation, nonischemic myopathy and ICD implantation who presented with worsening dyspnea. She is feeling better today. Her breathing is better. She denies any chest discomfort. She is able to walk to the bathroom and back without significant dyspnea although not back to her baseline. She denies any PND or orthopnea. She continues to be on amiodarone 200 mg daily, Lipitor 10 mg daily, Lasix 40 mg IV every 12, metoprolol succinate 100 mg daily, Aldactone 12-1/2 mg daily, Entresto and 426 twice a day. May 03: She is feeling better today, her dyspnea on exertion has improved. She denies any chest discomfort, dizziness or palpitations. She is in atrial fibrillation is controlled ventricular response. She has a pleural effusion and she is scheduled to undergo repeat ultrasound tomorrow to see if thoracentesis is indicated. She continues to be on Lasix 40 mg IV every 12 hours, amiodarone 200 mg daily, Lipitor 10 mg daily, insulin, Toprol 100 mg daily, Aldactone 12-1/2 mg daily, Coumadin,Entresto 2426 milligrams twice a day. PHYSICAL EXAMINATION: Blood pressure 103/ 66 heart rate 72 LUNGS: No wheezes with decreased breath sounds at the bases HEART: [Irregular rate and rhythm, S1, S2. No S3. Holosystolic murmur at the apex] ABDOMEN: [Soft, nontender, no organomegaly] EXTREMETIES: [No edema] LAB: INR 1.8, BUN and creatinine 39 and 1.55 IMPRESSION: 1. CHF with known cardiomyopathy, improving 2. Chronic persistent atrial fibrillation 3. Status post ICD 4. Mitral regurgitation 5. Renal failure improving PLAN: 1. Continue IV diuretics for 24 hours 2. Resume anticoagulation 3. Follow renal functions 4. Repeat ultrasound tomorrow to see if she is a candidate for thoracentesis 5. Follow INR. 6. If stable discharge in 24-48 hours. Objective - Vital Signs Vital signs: Vital Signs Temp 97.6 F 05/03/21 08:00 Pulse 72 05/03/21 11:57 Resp 16 05/03/21 11:57 BP 103/66 05/03/21 11:57 Pulse Ox 96 05/03/21 11:57 Intake & Output 05/02/21 05/03/21 05/03/21 18:59 06:59 18:59 Intake Total 236 600 118 Output Total 600 1400 400 Balance -364 800 -476 Weight 66.7 kg Intake: Oral 236 600 118 Output: Urine 600 1400 400 Other: # Voids 3 # Bowel Movements 1 - Labs CBC & Chem 7: 05/03/21 08:33 05/03/21 08:33 Labs: Abnormal Lab Results - Last 24 Hours (Table) 05/02/21 05/03/21 05/03/21 Range/Units 20:01 08:33 08:33 Plt Count (150-450) k/uL PT 18.6 H (9.0-12.0) sec INR 1.8 H (<1.2) Carbon Dioxide 35 H (22-30) mmol/L BUN 39 H (7-17) mg/dL Creatinine 1.55 H (0.52-1.04) mg/dL Glucose 123 H (74-99) mg/dL POC Glucose (mg/dL) 154 H (75-99) mg/dL 05/03/21 05/03/21 Range/Units 08:33 11:40 Plt Count 147 L (150-450) k/uL PT (9.0-12.0) sec INR (<1.2) Carbon Dioxide (22-30) mmol/L BUN (7-17) mg/dL Creatinine (0.52-1.04) mg/dL Glucose (74-99) mg/dL POC Glucose (mg/dL) 135 H (75-99) mg/dL
[2021-05-03 17:02] LABS: Glucose,Whole Blood 143 mg/dL (75-99)
[2021-05-03] MEDS ORDERED: WARFARIN 2.5 MG TAB PO ONE (18:00)
[2021-05-03] MEDS ORDERED: WARFARIN 2 MG TAB PO ONE (18:00)
[2021-05-03] MEDS: ATORVASTATIN 10 MG TAB PO SCH (20:10)
[2021-05-03 20:19] LABS: Glucose,Whole Blood 92 mg/dL (75-99)
[2021-05-03] MEDS: INSULIN DETEMIR (LEVEMIR) 100 UNIT/ML SYR SQ SCH (20:57)
[2021-05-04] MEDS: SODIUM CHLORIDE 0.9% 1,000 ML IV SCH (02:53)
[2021-05-04 06:20] LABS: Glucose,Whole Blood 90 mg/dL (75-99)
[2021-05-04] MEDS: INSULIN ASPART (NovoLOG) 100 UNIT/ML VIAL SQ SCH ×4 (06:37→20:48)
[2021-05-04] MEDS: LEVOTHYROXINE 25 MCG TAB PO SCH (06:38)
[2021-05-04] MEDS: METOPROLOL SUCCINATE (ER) 100 MG TAB.ER.24H PO SCH (08:14)
[2021-05-04] MEDS: FUROSEMIDE 10 MG/ML 4 ML VIAL IV SCH ×2 (08:14→19:37)
[2021-05-04] MEDS: SPIRONOLACTONE 25 MG TAB PO SCH (08:14)
[2021-05-04] MEDS: AMIODARONE 200 MG TAB PO SCH (08:14)
[2021-05-04 08:52] LABS: INR 1.7 (<1.2); Prothrombin Time 17.3 sec (9.0-12.0)
[2021-05-04 09:07] LABS: Albumin 3.6 g/dL (3.5-5.0); Calcium 8.9 mg/dL (8.4-10.2); Potassium 3.6 mmol/L (3.5-5.1); Total Bilirubin 1.9 mg/dL (0.2-1.3); Total Protein 6.6 g/dL (6.3-8.2)
[2021-05-04] MEDS: SACUBITRIL/VALSARTAN 24 MG-26 MG TABLET PO SCH ×2 (09:17→20:48)
--- NOTE | 2021-05-04 09:45 | US ---
EXAMINATION TYPE: US chest DATE OF EXAM: 05/04/2021 COMPARISON: Prior ultrasound dated 05/02/2021, chest x-ray 05/03/2021 CLINICAL HISTORY: Markings for thoracentesis by pulmonary staff. patient marked 2 days ago for pleura l effusion TECHNIQUE: Targeted ultrasound of the posterior lower Bilateral EXAM MEASUREMENTS: Right Pleural Effusion pocket size: 15.8 cm - tissue within anterior pocket of lung Right skin surface to fluid distance: 3.5 cm Left Pleural Effusion pocket size: 0 cm Right side marked for possible thoracentesis outside the dept. Left side NOT marked Pulmonologists are able to review the images in the patient?s EMR. IMPRESSIONS: There is a large right-sided pleural effusion
--- NOTE | 2021-05-04 10:36 | P.PN ---
Subjective Progress Note Date: 05/04/21 HISTORY OF PRESENT ILLNESS: This is a 86-year-old female with a past medical history significant for nonischemic cardiomyopathy with previous AICD implantation, permanent atrial fibrillation, severe mitral regurgitation, diabetes, congestive heart failure, hyperlipidemia, and hypothyroidism. Patient follows in the office with Dr. Rucker. We have been asked to see the patient in consultation for congestive heart failure. Patient examined at the bedside. Patient presented to the hospital with a chief complaint of shortness of breath. Patient states for the past 2 days she has become increasingly short of breath. She states that she tried wearing her oxygen at home but her shortness of breath did not improve. She denied any chest pain or pressure. Denies any fever or chills. The patient was found to be in acute CHF and was started on IV Lasix. She states her breathing has improved this morning. She is currently wearing a BiPAP at the time of examination. * EKG reveals ventricular paced rhythm * Chest xray congestive heart failure with moderate pleural effusions. There is increasing pulmonary congestion and pleural fluid compared to old exam. * Laboratory data: WBC 8.9. Hemoglobin 15.2. Platelet count 167. D-dimer 0.67. Sodium 140. Potassium 4.6. BUN 36. Creatinine 1.65. Lactic acid 3.0. Repeat 2.0. Troponin negative 3. ProBNP 15,800. * Current home cardiac medications include amiodarone 200 mg daily, metoprolol succinate 100 mg daily, Aldactone 12.5 mg daily, Lasix 40 mg twice a day, simvastatin 20 mg at night, warfarin 1 mg Tuesday and 1.5 mg Tuesday, and Entresto 24-26mg BID. * Most recent echocardiogram obtained in December 2020 revealed ejection fraction 20-25% with severe MR * Cardiac catheterization history: 2007 revealing normal coronary arteries 05/01/2021 Patient examined this point the bedside. Patient denies chest pain or pressure. She continues to report shortness of breath with exertion. She denies shortness of breath at rest. She remains on IV Lasix 40 mg every 8 hours. Creatinine today is increased to 1.90. Repeat proBNP today is 12,900. Chest x- ray reveals persistent cardiomegaly with central vascular congestion along with moderate sized right and tiny left pleural effusions. 05/04/2021 Patient examined this morning at the bedside. Patient denies chest pain or pressure. Patient reports improvement in her shortness of breath. She remains on Coumadin. INR 1.7. She remains on IV lasix. Chest US today reveals large right pleural effusion with tissue within anterior pocket of lung. Creatinine 1.55 today. PHYSICAL EXAM: VITAL SIGNS: Reviewed. GENERAL: Well-developed in no acute distress. HEENT: Head is normocephalic. Pupils are equal, round. Sclerae anicteric. Mucous membranes of the mouth are moist. Neck supple. No JVD or thyromegaly LUNGS: Respirations even and unlabored. Lungs diminished bilaterally, right worse than left HEART: Regular rate and rhythm. S1 and S2 heard. Systolic murmur noted. ABDOMEN: Soft. Nondistended. Nontender. EXTREMITIES: Normal range of motion. No clubbing or cyanosis. Peripheral pulses intact. No lower extremity edema NEUROLOGIC: Awake and alert. Oriented x 3. ASSESSMENT: Shortness of breath Acute on chronic congestive heart failure with reduced EF, 20-25% Large right pleural effusion Permanent atrial fibrillation Nonischemic cardiomyopathy with previous AICD implantation Hyperlipidemia Severe mitral regurgitation Acute on Chronic kidney disease Diabetes Hypothyroidism PLAN: Continue current cardiac medications Continue IV lasix Accurate I&O Daily weights Monitor kidney function Pulmonary following. IR consulted per pulmonary for right thoracentesis Further recommendations pending patient course Nurse practitioner note has been reviewed by physician. Signing provider agrees with the documented findings, assessment, and plan of care. Objective - Vital Signs Vital signs: Vital Signs Temp 97.6 F 05/04/21 08:00 Pulse 65 05/04/21 08:00 Resp 17 05/04/21 08:00 BP 106/51 05/04/21 08:00 Pulse Ox 96 05/04/21 08:17 Intake & Output 05/03/21 05/04/21 05/04/21 18:59 06:59 18:59 Intake Total 236 240 Output Total 1000 900 500 Balance -764 -900 -260 Weight 65.8 kg Intake: Oral 236 240 Output: Urine 1000 900 500 Other: # Voids 0 - Labs CBC & Chem 7: 05/03/21 08:33 05/04/21 08:08 Labs: Abnormal Lab Results - Last 24 Hours (Table) 05/03/21 05/03/21 05/03/21 Range/Units 08:33 11:40 17:01 PT (9.0-12.0) sec INR (<1.2) Carbon Dioxide 35 H (22-30) mmol/L BUN 39 H (7-17) mg/dL Creatinine 1.55 H (0.52-1.04) mg/dL Glucose 123 H (74-99) mg/dL POC Glucose (mg/dL) 135 H 143 H (75-99) mg/dL Total Bilirubin (0.2-1.3) mg/dL AST (14-36) U/L 05/04/21 05/04/21 Range/Units 08:08 08:08 PT 17.3 H (9.0-12.0) sec INR 1.7 H (<1.2) Carbon Dioxide 32 H (22-30) mmol/L BUN 37 H (7-17) mg/dL Creatinine 1.55 H (0.52-1.04) mg/dL Glucose 197 H (74-99) mg/dL POC Glucose (mg/dL) (75-99) mg/dL Total Bilirubin 1.9 H (0.2-1.3) mg/dL AST 37 H (14-36) U/L
--- NOTE | 2021-05-04 10:52 | P.PN ---
Subjective Progress Note Date: 05/04/21 Principal diagnosis: Congestive heart failure. Acute exacerbation of systolic congestive heart failure This is a very pleasant 86-year-old female patient with a known history of congestive heart failure and home oxygen, atrial fibrillation anticoagulated with warfarin, hypothyroidism, diabetes mellitus, hyperlipidemia, AICD placement. She presented here to the emergency room on 04/29/2022 with complaints of increasing shortness of breath and orthopnea. Increased lower ext remity edema. She was initially placed on BiPAP and admitted to the selective care unit. Yesterday his chest x-ray showed persistent cardiomegaly with central vascular congestion and a moderate right and small left pleural effusions. Associated basilar atelectasis/infiltrate. We are consulted for the same. She is seen today currently resting comfortably in bed. Awake and alert in no acute distress. Does have some dyspnea on minimal exertion. He is maintaining good O2 saturations in the mid 90s on 3 L/m per nasal cannula. Afebrile. Hemodynamically stable. INR 2.0. Sodium 140. Potassium 3.6. BUN 49. Creatinine 1.74. Glucose 228. ProBNP 12,900. White count 10.2. Hemoglobin 13.1. She's been initiated on IV diuretics. Ultrasound of the chest revealed a 15.4 cm pocket on the right and 1.8 cm pocket on the left. The right pleural effusion did demonstrate some lung tissue within the fluid. Reevaluated today on 05/03/2021, clinically the patient is doing great, she has hardly any cough no wheezing no shortness of breath, chest x-ray continues to show moderate sized pleural effusion, however her ultrasound was not the best quality ultrasound, and the pictures noted showed lung tissue floating in the fluid pocket, hence I was a bit reluctant to perform thoracentesis, not to mention the patient is doing better clinically. Patient continues to diurese with Lasix, I am considering repeating ultrasound on this patient in the morning, and based on the ultrasound findings may have to do thoracentesis or at least defer to interventional radiology to do it would live ultrasound in place. This will be decided upon tomorrow. In the meantime the patient is doing great, and clinically much better. Progress note dated 05/04/2021. Clinically, the patient seems be doing relatively well. She is on room air. She had a repeat ultrasound of the right chest. There is a large pocket of fluid, unfortunately, lung is noted within the fluid pocket. We've asked interventional radiology consider doing a thoracentesis. The patient is on blood thinner. Her INR was 1.8. The patient could be considered for possible discharge home, and have the ultrasound done as an outpatient. Today's labs including INR 1.7, sodium 141, potassium 3.6, chlorides 102, CO2 32, BUN 37, and creatinine 1.55. The repeat ultrasound of the right chest shows a 15.8 cm pocket, but unfortunately, tissue within the anterior pocket. Objective - Vital Signs Vital signs: Vital Signs Temp 97.6 F 05/04/21 08:00 Pulse 65 05/04/21 08:00 Resp 17 05/04/21 08:00 BP 106/51 05/04/21 08:00 Pulse Ox 96 05/04/21 08:17 Intake & Output 05/03/21 05/04/21 05/04/21 18:59 06:59 18:59 Intake Total 236 240 Output Total 1000 900 500 Balance -764 -900 -260 Weight 65.8 kg Intake: Oral 236 240 Output: Urine 1000 900 500 Other: # Voids 0 - Exam No acute distress, oriented 3. Currently on room air. Saturations are 96%. HEENT examination is grossly unremarkable. Neck supple. Full range of motion. No adenopathy thyromegaly or neck vein distention. Cardiovascular examination reveals regular rhythm rate. S1-S2 normal. No S3 or S4. No discernible murmur noted. Heart sounds are distant. Heart rate 65 bpm. Lungs reveal scattered rhonchi and crackles. Diminished breath sounds on the right side. No wheezes. Abdomen soft bowel sounds are heard. No masses or tenderness. Extremities are intact. No cyanosis clubbing or edema. Skin is without rash or lesion. Neurologic examination is brief but nonfocal. - Labs CBC & Chem 7: 05/03/21 08:33 05/04/21 08:08 Labs: Abnormal Lab Results - Last 24 Hours (Table) 05/03/21 05/03/21 05/04/21 Range/Units 11:40 17:01 08:08 PT 17.3 H (9.0-12.0) sec INR 1.7 H (<1.2) Carbon Dioxide (22-30) mmol/L BUN (7-17) mg/dL Creatinine (0.52-1.04) mg/dL Glucose (74-99) mg/dL POC Glucose (mg/dL) 135 H 143 H (75-99) mg/dL Total Bilirubin (0.2-1.3) mg/dL AST (14-36) U/L 05/04/21 Range/Units 08:08 PT (9.0-12.0) sec INR (<1.2) Carbon Dioxide 32 H (22-30) mmol/L BUN 37 H (7-17) mg/dL Creatinine 1.55 H (0.52-1.04) mg/dL Glucose 197 H (74-99) mg/dL POC Glucose (mg/dL) (75-99) mg/dL Total Bilirubin 1.9 H (0.2-1.3) mg/dL AST 37 H (14-36) U/L Assessment and Plan Assessment: Acute on chronic hypoxemic respiratory failure, secondary to acute exacerbation of systolic CHF. Large right-sided pleural effusion. Cardiomyopathy, with an ejection fraction of 20-25%. History of severe mitral regurgitation. Status post AICD placement for cardiomyopathy. History of atrial fibrillation. Diabetes mellitus. Hyperlipidemia. Hypothyroidism. Plan: Plan dated 05/04/2021. The patient's Coumadin is on hold. INR is 1.7. We've asked interventional radiology to consider ultrasound-guided thoracentesis. Alternatively, the patient could be discharged home, and brought back as an outpatient. Clinically, she looks very stable. Labs, x-rays, medications, and chest ultrasound are all reviewed. Time with Patient: Less than 30
[2021-05-04 12:02] LABS: Glucose,Whole Blood 166 mg/dL (75-99)
[2021-05-04 16:48] LABS: Glucose,Whole Blood 120 mg/dL (75-99)
[2021-05-04] MEDS ORDERED: WARFARIN 2.5 MG TAB PO ONE (18:00)
[2021-05-04] MEDS: ATORVASTATIN 10 MG TAB PO SCH (19:38)
[2021-05-04 19:53] LABS: Glucose,Whole Blood 190 mg/dL (75-99)
[2021-05-04] MEDS: INSULIN DETEMIR (LEVEMIR) 100 UNIT/ML SYR SQ SCH (20:48)
[2021-05-05] MEDS: SODIUM CHLORIDE 0.9% 1,000 ML IV SCH (04:33)
[2021-05-05 06:02] LABS: Glucose,Whole Blood 105 mg/dL (75-99)
[2021-05-05] MEDS: INSULIN ASPART (NovoLOG) 100 UNIT/ML VIAL SQ SCH ×4 (06:58→20:48)
[2021-05-05] MEDS: LEVOTHYROXINE 25 MCG TAB PO SCH (07:01)
[2021-05-05] MEDS: AMIODARONE 200 MG TAB PO SCH (08:12)
[2021-05-05] MEDS: FUROSEMIDE 10 MG/ML 4 ML VIAL IV SCH ×2 (08:13→20:52)
[2021-05-05] MEDS: SPIRONOLACTONE 25 MG TAB PO SCH (08:13)
[2021-05-05 08:52] LABS: INR 1.8 (<1.2); Prothrombin Time 18.2 sec (9.0-12.0)
--- NOTE | 2021-05-05 10:10 | P.PN ---
Subjective Progress Note Date: 05/04/21 HISTORY OF PRESENT ILLNESS 86-year-old female with history of congestive heart failure Patient uses home oxygen at night however over the past day or 2 she's been struggling with breathing she's having increased shortness of breath even at rest while doing nothing. She is unable to lay flat and tonight when she tried to "sleep she couldn't due to shortness of breath and decided to come into the hospital for evaluation she also noticed bilateral leg edema. She denies any fevers or chills denies any coughing or runny nose denies any chest pain denies any abdominal pain denies any nausea vomiting or GI or urinary habits changes. In the ED chest x-ray showed pulmonary congestion with pleural effusion. Blood work overall unremarkable except for elevated lactic acid Patient is currently on BiPAP and gives limited history but denies any recent hospitalization or traveling denies any history of blood clots 05/04: Patient is seen today in follow-up. Her breathing is improved, no chest pain. She is ambulating without lightheadedness or dizziness. Ultrasound of the chest revealed large right-sided pleural effusion. Pulmonary medicine has been following the patient REVIEW OF SYSTEMS Constitutional: No fever, no chills, no night sweats. No weight change. No weakness, fatigue or lethargy. No daytime sleepiness. EENT: No headache. No blurred vision or double vision, no loss of vision. No loss of Hearing, no ringing in the ears, no dizziness. No nasal drainage or congestion. No epistaxis. No sore throat. Lungs: No shortness of breath, cough, no sputum production. No wheezing. Cardiovascular: No chest pain, no lower extremity edema. No palpitations. No paroxysmal nocturnal dyspnea. No orthopnea. No lightheadedness or dizziness. No syncopal episodes. Abdominal: No abdominal pain. No nausea, vomiting. No diarrhea. No constipation. No bloody or tarry stools. No loss of appetite. Genitourinary: No dysuria, increased frequency, urgency. No urinary retention. Musculoskeletal: No myalgias. No muscle weakness, no gait dysfunction, no frequent falls. No back pain. No neck pain. Integumentary: No wounds, no lesions. No rash or pruritus. No unusual bruising. No change in hair or nails. Neurologic: No aphasia. No facial droop. No change in mentation. No head injury. No headache. No paralysis. No paresthesia. Psychiatric: No depression. No anxiety. No mood swings. Endocrine: No abnormal blood sugars. No weight change. PHYSICAL EXAMINATION Gen: This is an 85-year-old female. She is resting in and appears to be comfortable and in no acute distress. HEENT: Head is atraumatic, normocephalic. Pupils equal, round. Sclerae is anicteric. NECK: Supple. No JVD. No lymphadenopathy. No thyromegaly. LUNGS: Clear to auscultation. No wheezes or rhonchi. No intercostal retractions. HEART: Irregularly irregular rhythm with systolic murmur. ABDOMEN: Soft. Bowel sounds are present. No masses. No tenderness. EXTREMITIES: No pedal edema. No calf tenderness. NEUROLOGICAL: Patient is awake, alert and oriented x3. Cranial nerves 2 through 12 are grossly intact. ASSESSMENT AND PLAN Acute exacerbation of systolic congestive heart failure EF 30-35% Right pleural effusion Permanent A fib - Continue with Lasix 40 mg IV twice a day. Ultrasound to evaluate for thoracentesis as per pulmonary. Consult with INR. 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 Nicole Park nurse practitioner acting as scribe for signing physician. Objective - Vital Signs Vital signs: Vital Signs Temp 97.6 F 05/04/21 08:00 Pulse 65 05/04/21 08:00 Resp 17 05/04/21 08:00 BP 106/51 05/04/21 08:00 Pulse Ox 96 05/04/21 08:17 Intake & Output 05/03/21 05/04/21 05/04/21 18:59 06:59 18:59 Intake Total 236 Output Total 1000 900 500 Balance -764 -900 -500 Weight 65.8 kg Intake: Oral 236 Output: Urine 1000 900 500 - Labs CBC & Chem 7: 05/03/21 08:33 05/04/21 08:08 Labs: Abnormal Lab Results - Last 24 Hours (Table) 05/03/21 05/03/21 05/03/21 Range/Units 08:33 08:33 08:33 Plt Count 147 L (150-450) k/uL PT 18.6 H (9.0-12.0) sec INR 1.8 H (<1.2) Carbon Dioxide 35 H (22-30) mmol/L BUN 39 H (7-17) mg/dL Creatinine 1.55 H (0.52-1.04) mg/dL Glucose 123 H (74-99) mg/dL POC Glucose (mg/dL) (75-99) mg/dL Total Bilirubin (0.2-1.3) mg/dL AST (14-36) U/L 05/03/21 05/03/21 05/04/21 Range/Units 11:40 17:01 08:08 Plt Count (150-450) k/uL PT 17.3 H (9.0-12.0) sec INR 1.7 H (<1.2) Carbon Dioxide (22-30) mmol/L BUN (7-17) mg/dL Creatinine (0.52-1.04) mg/dL Glucose (74-99) mg/dL POC Glucose (mg/dL) 135 H 143 H (75-99) mg/dL Total Bilirubin (0.2-1.3) mg/dL AST (14-36) U/L 05/04/21 Range/Units 08:08 Plt Count (150-450) k/uL PT (9.0-12.0) sec INR (<1.2) Carbon Dioxide 32 H (22-30) mmol/L BUN 37 H (7-17) mg/dL Creatinine 1.55 H (0.52-1.04) mg/dL Glucose 197 H (74-99) mg/dL POC Glucose (mg/dL) (75-99) mg/dL Total Bilirubin 1.9 H (0.2-1.3) mg/dL AST 37 H (14-36) U/L
--- NOTE | 2021-05-05 10:42 | P.PN ---
Subjective Progress Note Date: 05/05/21 Principal diagnosis: Congestive heart failure. Acute exacerbation of systolic congestive heart failure This is a very pleasant 86-year-old female patient with a known history of congestive heart failure and home oxygen, atrial fibrillation anticoagulated with warfarin, hypothyroidism, diabetes mellitus, hyperlipidemia, AICD placement. She presented here to the emergency room on 04/29/2022 with complaints of increasing shortness of breath and orthopnea. Increased lower ext remity edema. She was initially placed on BiPAP and admitted to the selective care unit. Yesterday his chest x-ray showed persistent cardiomegaly with central vascular congestion and a moderate right and small left pleural effusions. Associated basilar atelectasis/infiltrate. We are consulted for the same. She is seen today currently resting comfortably in bed. Awake and alert in no acute distress. Does have some dyspnea on minimal exertion. He is maintaining good O2 saturations in the mid 90s on 3 L/m per nasal cannula. Afebrile. Hemodynamically stable. INR 2.0. Sodium 140. Potassium 3.6. BUN 49. Creatinine 1.74. Glucose 228. ProBNP 12,900. White count 10.2. Hemoglobin 13.1. She's been initiated on IV diuretics. Ultrasound of the chest revealed a 15.4 cm pocket on the right and 1.8 cm pocket on the left. The right pleural effusion did demonstrate some lung tissue within the fluid. Reevaluated today on 05/03/2021, clinically the patient is doing great, she has hardly any cough no wheezing no shortness of breath, chest x-ray continues to show moderate sized pleural effusion, however her ultrasound was not the best quality ultrasound, and the pictures noted showed lung tissue floating in the fluid pocket, hence I was a bit reluctant to perform thoracentesis, not to mention the patient is doing better clinically. Patient continues to diurese with Lasix, I am considering repeating ultrasound on this patient in the morning, and based on the ultrasound findings may have to do thoracentesis or at least defer to interventional radiology to do it would live ultrasound in place. This will be decided upon tomorrow. In the meantime the patient is doing great, and clinically much better. Progress note dated 05/04/2021. Clinically, the patient seems be doing relatively well. She is on room air. She had a repeat ultrasound of the right chest. There is a large pocket of fluid, unfortunately, lung is noted within the fluid pocket. We've asked interventional radiology consider doing a thoracentesis. The patient is on blood thinner. Her INR was 1.8. The patient could be considered for possible discharge home, and have the ultrasound done as an outpatient. Today's labs including INR 1.7, sodium 141, potassium 3.6, chlorides 102, CO2 32, BUN 37, and creatinine 1.55. The repeat ultrasound of the right chest shows a 15.8 cm pocket, but unfortunately, tissue within the anterior pocket. Progress note dated 05/05/2021. 86-year-old female, seen in room 354. She's currently on 2 L nasal cannula. The patient is resting comfortably without any distress. The patient does have a large right-sided pleural effusion. Unfortunately, there is lung tissue that is noted to be in the fluid pocket. We did ask interventional radiology to consider a thoracentesis, ultrasound-guided. Her most recent INR was 1.7. The patient's Coumadin is being held. Today's INR unfortunately is elevated at 1.8. Objective - Vital Signs Vital signs: Vital Signs Temp 98 F 05/05/21 08:00 Pulse 69 05/05/21 08:00 Resp 16 05/05/21 08:00 BP 90/65 05/05/21 08:00 Pulse Ox 97 05/05/21 08:00 Intake & Output 05/04/21 05/05/21 05/05/21 18:59 06:59 18:59 Intake Total 560 Output Total 1250 650 300 Balance -690 -650 -300 Weight 65.5 kg Intake: Oral 560 Output: Urine 1250 650 300 Other: Voiding Method Toilet # Voids 1 - Exam No acute distress, oriented 3. Currently on 2 L. Saturations are 99%. HEENT examination is grossly unremarkable. Neck supple. Full range of motion. No adenopathy thyromegaly or neck vein distention. Cardiovascular examination reveals regular rhythm rate. S1-S2 normal. No S3 or S4. No discernible murmur noted. Heart sounds are distant. Heart rate 69 bpm. Lungs reveal scattered rhonchi and crackles. Diminished breath sounds on the right side. No wheezes. Abdomen soft bowel sounds are heard. No masses or tenderness. Extremities are intact. No cyanosis clubbing or edema. Skin is without rash or lesion. Neurologic examination is brief but nonfocal. - Labs CBC & Chem 7: 05/03/21 08:33 05/04/21 08:08 Labs: Abnormal Lab Results - Last 24 Hours (Table) 05/04/21 05/04/21 05/04/21 Range/Units 11:51 16:43 19:52 PT (9.0-12.0) sec INR (<1.2) POC Glucose (mg/dL) 166 H 120 H 190 H (75-99) mg/dL 05/05/21 05/05/21 Range/Units 06:00 07:44 PT 18.2 H (9.0-12.0) sec INR 1.8 H (<1.2) POC Glucose (mg/dL) 105 H (75-99) mg/dL Assessment and Plan Assessment: Acute on chronic hypoxemic respiratory failure, secondary to acute exacerbation of systolic CHF. Large right-sided pleural effusion. Cardiomyopathy, with an ejection fraction of 20-25%. History of severe mitral regurgitation. Status post AICD placement for cardiomyopathy. History of atrial fibrillation. Diabetes mellitus. Hyperlipidemia. Hypothyroidism. Plan: Plan dated 05/04/2021. The patient's Coumadin is on hold. INR is 1.7. We've asked interventional radiology to consider ultrasound-guided thoracentesis. Alternatively, the patient could be discharged home, and brought back as an outpatient. Clinically, she looks very stable. Labs, x-rays, medications, and chest ultrasound are all reviewed. Plan dated 05/05/2021. The patient's INR today was 1.8. The patient's Coumadin is currently on hold. We did a interventional radiology to consider ultrasound-guided thoracentesis. Alternatively, the patient could be discharged home, and brought back as an outpatient. Clinically she stable. Probably does not need oxygen therapy. L abs, x-rays, and medications are reviewed. Overall prognosis remains guarded. We will continue to follow and make recommendations on this patient, where appropriate. Time with Patient: Less than 30
[2021-05-05 10:59] LABS: Glucose,Whole Blood 147 mg/dL (75-99)
[2021-05-05] MEDS: SACUBITRIL/VALSARTAN 24 MG-26 MG TABLET PO SCH ×2 (11:08→20:52)
[2021-05-05] MEDS: METOPROLOL SUCCINATE (ER) 100 MG TAB.ER.24H PO SCH (11:08)
[2021-05-05] MEDS ORDERED: PHYTONADIONE ORAL 5 MG/5 ML ORAL.SYRG PO STA (11:31)
--- NOTE | 2021-05-05 12:29 | P.PN ---
Subjective Progress Note Date: 05/05/21 HISTORY OF PRESENT ILLNESS: This is a 86-year-old female with a past medical history significant for nonischemic cardiomyopathy with previous AICD implantation, permanent atrial fibrillation, severe mitral regurgitation, diabetes, congestive heart failure, hyperlipidemia, and hypothyroidism. Patient follows in the office with Dr. Rucker. We have been asked to see the patient in consultation for congestive heart failure. Patient examined at the bedside. Patient presented to the hospital with a chief complaint of shortness of breath. Patient states for the past 2 days she has become increasingly short of breath. She states that she tried wearing her oxygen at home but her shortness of breath did not improve. She denied any chest pain or pressure. Denies any fever or chills. The patient was found to be in acute CHF and was started on IV Lasix. She states her breathing has improved this morning. She is currently wearing a BiPAP at the time of examination. * EKG reveals ventricular paced rhythm * Chest xray congestive heart failure with moderate pleural effusions. There is increasing pulmonary congestion and pleural fluid compared to old exam. * Laboratory data: WBC 8.9. Hemoglobin 15.2. Platelet count 167. D-dimer 0.67. Sodium 140. Potassium 4.6. BUN 36. Creatinine 1.65. Lactic acid 3.0. Repeat 2.0. Troponin negative 3. ProBNP 15,800. * Current home cardiac medications include amiodarone 200 mg daily, metoprolol succinate 100 mg daily, Aldactone 12.5 mg daily, Lasix 40 mg twice a day, simvastatin 20 mg at night, warfarin 1 mg Tuesday and 1.5 mg Tuesday, and Entresto 24-26mg BID. * Most recent echocardiogram obtained in December 2020 revealed ejection fraction 20-25% with severe MR * Cardiac catheterization history: 2007 revealing normal coronary arteries 05/01/2021 Patient examined this point the bedside. Patient denies chest pain or pressure. She continues to report shortness of breath with exertion. She denies shortness of breath at rest. She remains on IV Lasix 40 mg every 8 hours. Creatinine today is increased to 1.90. Repeat proBNP today is 12,900. Chest x- ray reveals persistent cardiomegaly with central vascular congestion along with moderate sized right and tiny left pleural effusions. 05/04/2021 Patient examined this morning at the bedside. Patient denies chest pain or pressure. Patient reports improvement in her shortness of breath. She remains on Coumadin. INR 1.7. She remains on IV lasix. Chest US today reveals large right pleural effusion with tissue within anterior pocket of lung. Creatinine 1.55 today. 05/05/2021 Patient examined this morning. She is sitting up in the chair. She denies chest pain or pressure. She denies any shortness of breath at rest. She continues to report shortness of breath when up and ambulating to the bathroom. She remains on IV Lasix 40 mg every 12 hours. Patient's Coumadin was held yesterday. INR today 1.8. Plan is for right thoracentesis per interventional radiology when INR improves. PHYSICAL EXAM: VITAL SIGNS: Reviewed. GENERAL: Well-developed in no acute distress. HEENT: Head is normocephalic. Pupils are equal, round. Sclerae anicteric. Mucous membranes of the mouth are moist. Neck supple. No JVD or thyromegaly LUNGS: Respirations even and unlabored. Lungs diminished bilaterally, right worse than left HEART: Regular rate and rhythm. S1 and S2 heard. Systolic murmur noted. ABDOMEN: Soft. Nondistended. Nontender. EXTREMITIES: Normal range of motion. No clubbing or cyanosis. Peripheral pulses intact. No lower extremity edema NEUROLOGIC: Awake and alert. Oriented x 3. ASSESSMENT: Shortness of breath Acute on chronic congestive heart failure with reduced EF, 20-25% Large right pleural effusion Permanent atrial fibrillation Nonischemic cardiomyopathy with previous AICD implantation Hyperlipidemia Severe mitral regurgitation Acute on Chronic kidney disease Diabetes Hypothyroidism PLAN: Continue current cardiac medications Continue IV lasix Accurate I&O Daily weights Monitor kidney function Pulmonary following. IR consulted per pulmonary for right thoracentesis Continue to hold Coumadin. Monitor INR. Plan for her centesis when INR improves. Give vitamin K 2.5 mg oral 1 dose Further recommendations pending patient course Nurse practitioner note has been reviewed by physician. Signing provider agrees with the documented findings, assessment, and plan of care. Objective - Vital Signs Vital signs: Vital Signs Temp 98 F 05/05/21 08:00 Pulse 70 05/05/21 11:28 Resp 17 05/05/21 11:28 BP 97/60 05/05/21 11:28 Pulse Ox 98 05/05/21 11:28 Intake & Output 05/04/21 05/05/21 05/05/21 18:59 06:59 18:59 Intake Total 560 Output Total 1250 650 300 Balance -690 -650 -300 Weight 65.5 kg Intake: Oral 560 Output: Urine 1250 650 300 Other: Voiding Method Toilet # Voids 1 - Labs CBC & Chem 7: 05/03/21 08:33 05/04/21 08:08 Labs: Abnormal Lab Results - Last 24 Hours (Table) 05/04/21 05/04/21 05/05/21 Range/Units 16:43 19:52 06:00 PT (9.0-12.0) sec INR (<1.2) POC Glucose (mg/dL) 120 H 190 H 105 H (75-99) mg/dL 05/05/21 05/05/21 Range/Units 07:44 10:58 PT 18.2 H (9.0-12.0) sec INR 1.8 H (<1.2) POC Glucose (mg/dL) 147 H (75-99) mg/dL
--- NOTE | 2021-05-05 13:59 | P.PN ---
Subjective Progress Note Date: 05/05/21 HISTORY OF PRESENT ILLNESS 86-year-old female with history of congestive heart failure Patient uses home oxygen at night however over the past day or 2 she's been struggling with breathing she's having increased shortness of breath even at rest while doing nothing. She is unable to lay flat and tonight when she tried to "sleep she couldn't due to shortness of breath and decided to come into the hospital for evaluation she also noticed bilateral leg edema. She denies any fevers or chills denies any coughing or runny nose denies any chest pain denies any abdominal pain denies any nausea vomiting or GI or urinary habits changes. In the ED chest x-ray showed pulmonary congestion with pleural effusion. Blood work overall unremarkable except for elevated lactic acid Patient is currently on BiPAP and gives limited history but denies any recent hospitalization or traveling denies any history of blood clots 05/04: Patient is seen today in follow-up. Her breathing is improved, no chest pain. She is ambulating without lightheadedness or dizziness. Ultrasound of the chest revealed large right-sided pleural effusion. Pulmonary medicine has been following the patient 05/05: Patient has been afebrile, heart rate 69, blood pressure 90/65, pulse ox 97% on room air. She states that her appetite is okay. She is not requiring oxygen. Pulmonary medicine as recommended IR for thoracentesis. Coumadin was placed on hold yesterday and unfortunately INR is 1.8. We'll continue to hold INR in anticipation of possible thoracentesis tomorrow. Cardiology has ordered 1 dose of vitamin K 2.5 mg today. She is continued on IV Lasix 40 mg every 12 hours and Aldactone 12.5 mg daily. REVIEW OF SYSTEMS Constitutional: No fever, no chills, no night sweats. No weight change. No weakness, fatigue or lethargy. No daytime sleepiness. EENT: No headache. No blurred vision or double vision, no loss of vision. No loss of Hearing, no ringing in the ears, no dizziness. No nasal drainage or congestion. No epistaxis. No sore throat. Lungs: Mild shortness of breath, cough, no sputum production. No wheezing. Cardiovascular: No chest pain, no lower extremity edema. No palpitations. No paroxysmal nocturnal dyspnea. No orthopnea. No lightheadedness or dizziness. No syncopal episodes. Abdominal: No abdominal pain. No nausea, vomiting. No diarrhea. No constipation. No bloody or tarry stools. No loss of appetite. Genitourinary: No dysuria, increased frequency, urgency. No urinary retention. Musculoskeletal: No myalgias. No muscle weakness, no gait dysfunction, no frequent falls. No back pain. No neck pain. Integumentary: No wounds, no lesions. No rash or pruritus. No unusual br uising. No change in hair or nails. Neurologic: No aphasia. No facial droop. No change in mentation. No head injury. No headache. No paralysis. No paresthesia. Psychiatric: No depression. No anxiety. No mood swings. Endocrine: No abnormal blood sugars. No weight change. PHYSICAL EXAMINATION Gen: This is an 85-year-old female. She is resting in and appears to be comfortable and in no acute distress. HEENT: Head is atraumatic, normocephalic. Pupils equal, round. Sclerae is anicteric. NECK: Supple. No JVD. No lymphadenopathy. No thyromegaly. LUNGS: Decreased breath sounds on the right. No intercostal retractions. HEART: Irregularly irregular rhythm with systolic murmur. ABDOMEN: Soft. Bowel sounds are present. No masses. No tenderness. EXTREMITIES: No pedal edema. No calf tenderness. NEUROLOGICAL: Patient is awake, alert and oriented x3. Cranial nerves 2 through 12 are grossly intact. ASSESSMENT AND PLAN Acute exacerbation of systolic congestive heart failure EF 30-35% Right pleural effusion Permanent A fib - Continue with Lasix 40 mg IV twice a day. Ultrasound to evaluate for thoracentesis as per pulmonary. Consult with IR. - cardio recs: entresto, strict I and O - coumadinon hold - INR 1.8 CKD IV - at baseline GFRof 25 - monitor closely with dayanastradha Diabetes mellitus type 2 -On oral medications -sliding-scale insulin - A1C 7 Dyslipidemia - statin Transaminitis - suspect due to hepatic congestion - conitnue to monitor DISCHARGE PLAN Home Impression and plan of care have been directed as dictated by the signing physician. [place] Park nurse practitioner acting as scribe for signing physician. Objective - Vital Signs Vital signs: Vital Signs Temp 98 F 05/05/21 08:00 Pulse 69 05/05/21 08:00 Resp 16 05/05/21 08:00 BP 90/65 05/05/21 08:00 Pulse Ox 97 05/05/21 08:00 Intake & Output 05/04/21 05/05/21 05/05/21 18:59 06:59 18:59 Intake Total 560 Output Total 1250 650 300 Balance -690 -650 -300 Weight 65.5 kg Intake: Oral 560 Output: Urine 1250 650 300 Other: Voiding Method Toilet # Voids 1 - Labs CBC & Chem 7: 05/03/21 08:33 05/04/21 08:08 Labs: Abnormal Lab Results - Last 24 Hours (Table) 05/04/21 05/04/21 05/04/21 Range/Units 08:08 08:08 11:51 PT 17.3 H (9.0-12.0) sec INR 1.7 H (<1.2) Carbon Dioxide 32 H (22-30) mmol/L BUN 37 H (7-17) mg/dL Creatinine 1.55 H (0.52-1.04) mg/dL Glucose 197 H (74-99) mg/dL POC Glucose (mg/dL) 166 H (75-99) mg/dL Total Bilirubin 1.9 H (0.2-1.3) mg/dL AST 37 H (14-36) U/L 05/04/21 05/04/21 05/05/21 Range/Units 16:43 19:52 06:00 PT (9.0-12.0) sec INR (<1.2) Carbon Dioxide (22-30) mmol/L BUN (7-17) mg/dL Creatinine (0.52-1.04) mg/dL Glucose (74-99) mg/dL POC Glucose (mg/dL) 120 H 190 H 105 H (75-99) mg/dL Total Bilirubin (0.2-1.3) mg/dL AST (14-36) U/L
[2021-05-05 16:27] LABS: Glucose,Whole Blood 147 mg/dL (75-99)
[2021-05-05 20:11] LABS: Glucose,Whole Blood 116 mg/dL (75-99)
[2021-05-05] MEDS: INSULIN DETEMIR (LEVEMIR) 100 UNIT/ML SYR SQ SCH (20:52)
[2021-05-05] MEDS: ATORVASTATIN 10 MG TAB PO SCH (20:52)
[2021-05-06] MEDS: SODIUM CHLORIDE 0.9% 1,000 ML IV SCH (02:41)
[2021-05-06 06:31] LABS: Glucose,Whole Blood 115 mg/dL (75-99)
[2021-05-06] MEDS: INSULIN ASPART (NovoLOG) 100 UNIT/ML VIAL SQ SCH ×4 (06:39→20:40)
[2021-05-06] MEDS: LEVOTHYROXINE 25 MCG TAB PO SCH (06:41)
[2021-05-06 09:44] LABS: INR 1.4 (<1.2); Prothrombin Time 14.3 sec (9.0-12.0)
[2021-05-06 09:59] LABS: Calcium 8.7 mg/dL (8.4-10.2); Potassium 3.6 mmol/L (3.5-5.1)
[2021-05-06] MEDS: METOPROLOL SUCCINATE (ER) 100 MG TAB.ER.24H PO SCH (10:20)
[2021-05-06] MEDS: FUROSEMIDE 10 MG/ML 4 ML VIAL IV SCH ×2 (10:21→20:40)
[2021-05-06] MEDS: SACUBITRIL/VALSARTAN 24 MG-26 MG TABLET PO SCH ×2 (10:34→20:40)
[2021-05-06 10:52] LABS: Glucose,Whole Blood 105 mg/dL (75-99)
--- NOTE | 2021-05-06 11:12 | P.PN ---
Subjective Progress Note Date: 05/06/21 Principal diagnosis: Congestive heart failure. Acute exacerbation of systolic congestive heart failure This is a very pleasant 86-year-old female patient with a known history of congestive heart failure and home oxygen, atrial fibrillation anticoagulated with warfarin, hypothyroidism, diabetes mellitus, hyperlipidemia, AICD placement. She presented here to the emergency room on 04/29/2022 with complaints of increasing shortness of breath and orthopnea. Increased lower ext remity edema. She was initially placed on BiPAP and admitted to the selective care unit. Yesterday his chest x-ray showed persistent cardiomegaly with central vascular congestion and a moderate right and small left pleural effusions. Associated basilar atelectasis/infiltrate. We are consulted for the same. She is seen today currently resting comfortably in bed. Awake and alert in no acute distress. Does have some dyspnea on minimal exertion. He is maintaining good O2 saturations in the mid 90s on 3 L/m per nasal cannula. Afebrile. Hemodynamically stable. INR 2.0. Sodium 140. Potassium 3.6. BUN 49. Creatinine 1.74. Glucose 228. ProBNP 12,900. White count 10.2. Hemoglobin 13.1. She's been initiated on IV diuretics. Ultrasound of the chest revealed a 15.4 cm pocket on the right and 1.8 cm pocket on the left. The right pleural effusion did demonstrate some lung tissue within the fluid. Reevaluated today on 05/03/2021, clinically the patient is doing great, she has hardly any cough no wheezing no shortness of breath, chest x-ray continues to show moderate sized pleural effusion, however her ultrasound was not the best quality ultrasound, and the pictures noted showed lung tissue floating in the fluid pocket, hence I was a bit reluctant to perform thoracentesis, not to mention the patient is doing better clinically. Patient continues to diurese with Lasix, I am considering repeating ultrasound on this patient in the morning, and based on the ultrasound findings may have to do thoracentesis or at least defer to interventional radiology to do it would live ultrasound in place. This will be decided upon tomorrow. In the meantime the patient is doing great, and clinically much better. Progress note dated 05/04/2021. Clinically, the patient seems be doing relatively well. She is on room air. She had a repeat ultrasound of the right chest. There is a large pocket of fluid, unfortunately, lung is noted within the fluid pocket. We've asked interventional radiology consider doing a thoracentesis. The patient is on blood thinner. Her INR was 1.8. The patient could be considered for possible discharge home, and have the ultrasound done as an outpatient. Today's labs including INR 1.7, sodium 141, potassium 3.6, chlorides 102, CO2 32, BUN 37, and creatinine 1.55. The repeat ultrasound of the right chest shows a 15.8 cm pocket, but unfortunately, tissue within the anterior pocket. Progress note dated 05/05/2021. 86-year-old female, seen in room 354. She's currently on 2 L nasal cannula. The patient is resting comfortably without any distress. The patient does have a large right-sided pleural effusion. Unfortunately, there is lung tissue that is noted to be in the fluid pocket. We did ask interventional radiology to consider a thoracentesis, ultrasound-guided. Her most recent INR was 1.7. The patient's Coumadin is being held. Today's INR unfortunately is elevated at 1.8. Progress note dated 05/06/2021. 86-year-old female seen in room 354. The patient is to have a ultrasound-guided thoracentesis on the right chest, performed by interventional radiology today. The patient remains on 2 L nasal cannula. She is very comfortable and very stable. PT was 14.3 with an INR of 1.4, which is much improved. Sodium 140, potassium 3.6, chlorides 103, CO2 29, anion gap 8, BUN 36, with a creatinine of 1.54. Calcium is 8.7. The patient is not receiving any IV fluids. Objective - Vital Signs Vital signs: Vital Signs Temp 97.9 F 05/06/21 10:20 Pulse 70 05/06/21 10:20 Resp 18 05/06/21 10:20 BP 99/60 05/06/21 10:20 Pulse Ox 93 L 05/06/21 10:20 Intake & Output 05/05/21 05/06/21 05/06/21 18:59 06:59 18:59 Intake Total 110 Output Total 500 1400 Balance -390 -1400 Intake: Oral 110 Output: Urine 500 1400 Other: Voiding Method Toilet # Bowel Movements 1 - Exam No acute distress, oriented 3. Currently on 2 L. Saturations are 97%. HEENT examination is grossly unremarkable. Neck supple. Full range of motion. No adenopathy thyromegaly or neck vein distention. Cardiovascular examination reveals regular rhythm rate. S1-S2 normal. No S3 or S4. No discernible murmur noted. Heart sounds are distant. Heart rate 70 bpm. Lungs reveal scattered rhonchi and crackles. Diminished breath sounds on the right side. No wheezes. Abdomen soft bowel sounds are heard. No masses or tenderness. Extremities are intact. No cyanosis clubbing or edema. Skin is without rash or lesion. Neurologic examination is brief but nonfocal. - Labs CBC & Chem 7: 05/03/21 08:33 05/06/21 08:26 Labs: Abnormal Lab Results - Last 24 Hours (Table) 05/05/21 05/05/21 05/06/21 Range/Units 16:26 20:10 06:30 PT (9.0-12.0) sec INR (<1.2) BUN (7-17) mg/dL Creatinine (0.52-1.04) mg/dL Glucose (74-99) mg/dL POC Glucose (mg/dL) 147 H 116 H 115 H (75-99) mg/dL 05/06/21 05/06/21 05/06/21 Range/Units 08:26 08:26 10:50 PT 14.3 H (9.0-12.0) sec INR 1.4 H (<1.2) BUN 36 H (7-17) mg/dL Creatinine 1.54 H (0.52-1.04) mg/dL Glucose 111 H (74-99) mg/dL POC Glucose (mg/dL) 105 H (75-99) mg/dL Assessment and Plan Assessment: Acute on chronic hypoxemic respiratory failure, secondary to acute exacerbation of systolic CHF. Large right-sided pleural effusion. Cardiomyopathy, with an ejection fraction of 20-25%. History of severe mitral regurgitation. Status post AICD placement for cardiomyopathy. History of atrial fibrillation. Diabetes mellitus. Hyperlipidemia. Hypothyroidism. Plan: Plan dated 05/04/2021. The patient's Coumadin is on hold. INR is 1.7. We've asked interventional radiology to consider ultrasound-guided thoracentesis. Alternatively, the patient could be discharged home, and brought back as an outpatient. Clinically, she looks very stable. Labs, x-rays, medications, and chest ultrasound are all reviewed. Plan dated 05/05/2021. The patient's INR today was 1.8. The patient's Coumadin is currently on hold. We did a interventional radiology to consider ultrasound-guided thoracentesis. Alternatively, the patient could be discharged home, and brought back as an outpatient. Clinically she stable. Probably does not need oxygen therapy. Labs, x-rays, and medications are reviewed. Overall prognosis remains guarded. We will continue to follow and make recommendations on this patient, where appropriate. Plan dated 05/06/2021. The patient should be able to have her ultrasound-guided right-sided thoracentesis today, by interventional radiology. The patient is clinically very stable. Her saturations on room air as well as on oxygen, are excellent. The patient could be considered for possible discharge in the near future. Pulmonary status is otherwise stable. Prognosis is guarded. Time with Patient: Less than 30
--- NOTE | 2021-05-06 13:29 | P.DS ---
Providers Date of admission: 04/30/21 01:08 Expected date of discharge: 05/06/21 Attending physician: Alberto Solomon Consults: 04/30/21 01:07 Consult Physician Routine Consulting Provider: Saran Snowden Consult Reason/Comments: CHF exacerbation Do you want consulting provider notified?: Yes 05/01/21 19:04 Consult Physician Routine Consulting Provider: Rupal Moran Consult Reason/Comments: right pleural effusion Do you want consulting provider notified?: Yes Primary care physician: [facility] Course: HISTORY OF PRESENT ILLNESS 86-year-old female with history of congestive heart failure Patient uses home oxygen at night however over the past day or 2 she's been struggling with breathing she's having increased shortness of breath even at rest while doing nothing. She is unable to lay flat and tonight when she tried to "sleep she couldn't due to shortness of breath and decided to come into the hospital for evaluation she also noticed bilateral leg edema. She denies any fevers or chills denies any coughing or runny nose denies any chest pain denies any abdominal pain denies any nausea vomiting or GI or urinary habits changes. In the ED chest x-ray showed pulmonary congestion with pleural effusion. Blood work overall unremarkable except for elevated lactic acid Patient is currently on BiPAP and gives limited history but denies any recent hospitalization or traveling denies any history of blood clots 05/04: Patient is seen today in follow-up. Her breathing is improved, no chest pain. She is ambulating without lightheadedness or dizziness. Ultrasound of the chest revealed large right-sided pleural effusion. Pulmonary medicine has been following the patient 05/05: Patient has been afebrile, heart rate 69, blood pressure 90/65, pulse ox 97% on room air. She states that her appetite is okay. She is not requiring oxygen. Pulmonary medicine as recommended IR for thoracentesis. Coumadin was placed on hold yesterday and unfortunately INR is 1.8. We'll continue to hold INR in anticipation of possible thoracentesis tomorrow. Cardiology has ordered 1 dose of vitamin K 2.5 mg today. She is continued on IV Lasix 40 mg every 12 hours and Aldactone 12.5 mg daily. 05/06: Repeat INR is 1.4, BUN 36 creatinine 1.54. Capillary blood glucose running between 105 and 137. Patient is scheduled for biopsy this afternoon at 1 PM. Repeat chest x-ray reveals Patient will be discharged home today in stable condition. ASSESSMENT AND PLAN Acute exacerbation of systolic congestive heart failure EF 30-35% Right pleural effusion Permanent A fib CKD IV Diabetes mellitus type 2, A1C 7 Dyslipidemia Transaminitis DISCHARGE PLAN Home Greater than 35 minutes was utilized and coordinating patient's discharge. Impression and plan of care have been directed as dictated by the signing physician. [place] nurse practitioner acting as scribe for signing physician. Patient Condition at Discharge: Good Plan - Discharge Summary Discharge Rx Participant: No New Discharge Prescriptions: Continue Spironolactone [Aldactone] 12.5 mg PO DAILY@0900 Simvastatin [Zocor] 20 mg PO HS@2100 Magnesium Chloride [Mag64] 64 mg PO DAILY@0700 Amiodarone [Cordarone] 200 mg PO DAILY@0900 Levothyroxine Sodium [Synthroid] 25 mcg PO DAILY@0700 Warfarin [Coumadin] 1 mg PO SUTUTHSA@2100 Warfarin [Coumadin] 1.5 mg PO MOWEFR@2100 calcium polycarbophiL [Fibercon] 625 mg PO DAILY PRN PRN Reason: Constipation Furosemide [Lasix] 40 mg PO BID@0900,1600 #60 tab Loperamide [Imodium] 2 mg PO BID@0900,2100 Triamcinolone 0.1% Ointment [Kenalog 0.1% Ointment] 1 applic TOPICAL DAILY@0900 glipiZIDE [Glucotrol] 5 mg PO BID@0900,2100 Cetirizine HCl 10 mg PO DAILY PRN PRN Reason: Allergy Symptoms Metoprolol Succinate [Toprol XL] 100 mg PO DAILY@0900 Sacubitril/Valsartan [Entresto 24 mg-26 mg Tablet] 1 tab PO BID@0900,2100 Discontinued Doxycycline Hyclate 50 mg PO DAILY@0900 Clindamycin Gel [Cleocin T 1% Gel] 1 applic TOPICAL DIRECTED Discharge Medication List Magnesium Chloride [Mag64] 64 mg PO DAILY@0700 10/22/15 [History] Simvastatin [Zocor] 20 mg PO HS@2100 10/22/15 [History] Spironolactone [Aldactone] 12.5 mg PO DAILY@0910/22/15 [History] Amiodarone [Cordarone] 200 mg PO DAILY@0911/24/15 [History] Levothyroxine Sodium [Synthroid] 25 mcg PO DAILY@0703/30/18 [History] Warfarin [Coumadin] 1 mg PO SUTUTHSA@209903/30/18 [History] Warfarin [Coumadin] 1.5 mg PO MOWEFR@209903/30/18 [History] calcium polycarbophiL [Fibercon] 625 mg PO DAILY PRN 11/19/18 [History] Cetirizine HCl 10 mg PO DAILY PRN 11/21/20 [History] Metoprolol Succinate [Toprol XL] 100 mg PO DAILY@0911/21/20 [History] glipiZIDE [Glucotrol] 5 mg PO BID@09,209911/21/20 [History] Furosemide [Lasix] 40 mg PO BID@0900,1600 #60 tab 12/24/20 [Rx] Loperamide [Imodium] 2 mg PO BID@0900,209904/29/21 [History] Sacubitril/Valsartan [Entresto 24 mg-26 mg Tablet] 1 tab PO BID@0900,209904/29/21 [History] Triamcinolone 0.1% Ointment [Kenalog 0.1% Ointment] 1 applic TOPICAL DAILY@89904/29/21 [History] Follow up Appointment(s)/Referral(s): Alberto Solomon MD [Primary Care Provider] - 1 Week Duke Harry DO [Doctor of Osteopathic Medicine] - 1 Week Discharge Disposition: HOME SELF-CARE
--- NOTE | 2021-05-06 13:29 | XR ---
EXAMINATION TYPE: XR chest 1V portable DATE OF EXAM: 05/06/2021 COMPARISON: X-ray dated 05/03/2021 HISTORY: Post right thoracentesis TECHNIQUE: Single frontal view of the chest is obtained. FINDINGS: Interval thoracentesis. Regression of the previously seen right pleural effusion with residual small right pleural effusion however there is newly seen sizable right-sided pneumothorax measuring up to 3 .9 cm in the right hemithoracic base and 3.3 cm in the right hemithoracic apex. Unchanged remainder o f the lungs. No left-sided pleural effusion or left pneumothorax. Unchanged cardiomediastinal silhoue tte and left dual-lead pacemaker. IMPRESSION: Postthoracentesis pneumothorax as described above.
--- NOTE | 2021-05-06 13:45 | P.PCN ---
Date of Procedure: 05/06/21 Preoperative Diagnosis: right pleural effusion Postoperative Diagnosis: same with pneumothorax Procedure(s) Performed: thoracentesis Anesthesia: local Estimated Blood Loss (ml): 5 Pathology: other (60 cc sent) Condition: stable Disposition: no change Operative Findings: 900 cc yellow fluid, post procedure pneumothorax noted and discussed with Allyn Whatley by telephone. Patient asymptomatic at this time and states "I am breathing better".
[2021-05-06] MEDS: SPIRONOLACTONE 25 MG TAB PO SCH (13:55)
[2021-05-06] MEDS: AMIODARONE 200 MG TAB PO SCH (13:55)
--- NOTE | 2021-05-06 13:59 | P.PN ---
Progress Note - Text Progress Note Date: 05/06/21 Patient off the floor for thoracentesis during cardiology rounds. We'll attempt to reevaluate patient later.
--- NOTE | 2021-05-06 14:14 | P.PN ---
Subjective Progress Note Date: 05/06/21 HISTORY OF PRESENT ILLNESS 86-year-old female with history of congestive heart failure Patient uses home oxygen at night however over the past day or 2 she's been struggling with breathing she's having increased shortness of breath even at rest while doing nothing. She is unable to lay flat and tonight when she tried to "sleep she couldn't due to shortness of breath and decided to come into the hospital for evaluation she also noticed bilateral leg edema. She denies any fevers or chills denies any coughing or runny nose denies any chest pain denies any abdominal pain denies any nausea vomiting or GI or urinary habits changes. In the ED chest x-ray showed pulmonary congestion with pleural effusion. Blood work overall unremarkable except for elevated lactic acid Patient is currently on BiPAP and gives limited history but denies any recent hospitalization or traveling denies any history of blood clots 05/04: Patient is seen today in follow-up. Her breathing is improved, no chest pain. She is ambulating without lightheadedness or dizziness. Ultrasound of the chest revealed large right-sided pleural effusion. Pulmonary medicine has been following the patient 05/05: Patient has been afebrile, heart rate 69, blood pressure 90/65, pulse ox 97% on room air. She states that her appetite is okay. She is not requiring oxygen. Pulmonary medicine as recommended IR for thoracentesis. Coumadin was placed on hold yesterday and unfortunately INR is 1.8. We'll continue to hold INR in anticipation of possible thoracentesis tomorrow. Cardiology has ordered 1 dose of vitamin K 2.5 mg today. She is continued on IV Lasix 40 mg every 12 hours and Aldactone 12.5 mg daily. 05/06: Repeat INR is 1.4, BUN 36 creatinine 1.54. Capillary blood glucose running between 105 and 137. Patient underwent right-sided thoracentesis with removal of 900 mL of yellow fluid. Repeat chest x-ray reveals right-sided pneumothorax measuring 3.9 cm. Pulmonary medicine was notified and discharge to home held today. REVIEW OF SYSTEMS Constitutional: No fever, no chills, no night sweats. No weight change. No weakness, fatigue or lethargy. No daytime sleepiness. EENT: No headache. No blurred vision or double vision, no loss of vision. No loss of Hearing, no ringing in the ears, no dizziness. No nasal drainage or congestion. No epistaxis. No sore throat. Lungs: Mild shortness of breath, cough, no sputum production. No wheezing. Cardiovascular: No chest pain, no lower extremity edema. No palpitations. No paroxysmal nocturnal dyspnea. No orthopnea. No lightheadedness or dizziness. No syncopal episodes. Abdominal: No abdominal pain. No nausea, vomiting. No diarrhea. No constipation. No bloody or tarry stools. No loss of appetite. Genitourinary: No dysuria, increased frequency, urgency. No urinary retention. Musculoskeletal: No myalgias. No muscle weakness, no gait dysfunction, no frequent falls. No back pain. No neck pain. Integumentary: No wounds, no lesions. No rash or pruritus. No unusual bruising. No change in hair or nails. Neurologic: No aphasia. No facial droop. No change in mentation. No head injury. No headache. No paralysis. No paresthesia. Psychiatric: No depression. No anxiety. No mood swings. Endocrine: No abnormal blood sugars. No weight change. PHYSICAL EXAMINATION Gen: This is an 85-year-old female. She is resting in and appears to be comfortable and in no acute distress. HEENT: Head is atraumatic, normocephalic. Pupils equal, round. Sclerae is an icteric. NECK: Supple. No JVD. No lymphadenopathy. No thyromegaly. LUNGS: Decreased breath sounds on the right. No intercostal retractions. HEART: Irregularly irregular rhythm with systolic murmur. ABDOMEN: Soft. Bowel sounds are present. No masses. No tenderness. EXTREMITIES: No pedal edema. No calf tenderness. NEUROLOGICAL: Patient is awake, alert and oriented x3. Cranial nerves 2 through 12 are grossly intact. ASSESSMENT AND PLAN Acute exacerbation of systolic congestive heart failure EF 30-35% Right pleural effusion Permanent A fib - Continue with Lasix 40 mg IV twice a day. Ultrasound to evaluate for thoracentesis as per pulmonary. Consult with IR. - cardio recs: entresto, strict I and O - coumadinon hold - INR 1.8 CKD IV - at baseline GFRof 25 - monitor closely with entresto Diabetes mellitus type 2 -On oral medications -sliding-scale insulin - A1C 7 Dyslipidemia - statin Transaminitis - suspect due to hepatic congestion - conitnue to monitor Postprocedural pneumothorax. DISCHARGE PLAN Home Impression and plan of care have been directed as dictated by the signing physician. Nicole Park nurse practitioner acting as scribe for signing physician. Objective - Vital Signs Vital signs: Vital Signs Temp 97.9 F 05/06/21 10:20 Pulse 70 05/06/21 13:03 Resp 18 05/06/21 13:03 BP 103/56 05/06/21 13:03 Pulse Ox 96 05/06/21 13:03 Intake & Output 05/05/21 05/06/21 05/06/21 18:59 06:59 18:59 Intake Total 110 120 Output Total 500 1400 Balance -390 -1400 120 Intake: Oral 110 120 Output: Urine 500 1400 Other: Voiding Method Toilet Toilet # Voids 1 # Bowel Movements 1 - Labs CBC & Chem 7: 05/03/21 08:33 05/06/21 08:26 Labs: Abnormal Lab Results - Last 24 Hours (Table) 05/05/21 05/05/21 05/06/21 Range/Units 16:26 20:10 06:30 PT (9.0-12.0) sec INR (<1.2) BUN (7-17) mg/dL Creatinine (0.52-1.04) mg/dL Glucose (74-99) mg/dL POC Glucose (mg/dL) 147 H 116 H 115 H (75-99) mg/dL 05/06/21 05/06/21 05/06/21 Range/Units 08:26 08:26 10:50 PT 14.3 H (9.0-12.0) sec INR 1.4 H (<1.2) BUN 36 H (7-17) mg/dL Creatinine 1.54 H (0.52-1.04) mg/dL Glucose 111 H (74-99) mg/dL POC Glucose (mg/dL) 105 H (75-99) mg/dL
--- NOTE | 2021-05-06 14:43 | US ---
EXAMINATION TYPE: US thoracentesis DATE OF EXAM: 05/06/2021 COMPARISON: NONE HISTORY: Pleural effusion. FINDINGS: Maximal barrier technique was utilized. The skin overlying a suitable pocket of fluid was localized and the overlying skin prepped and draped. Lidocaine was used for local anesthesia. Ultras ound was used with sterile technique. A 6 [place] catheter over guide needle was advanced into the pl eural fluid collection using ultrasound guidance the catheter advanced, needle removed. Approximatel y 0.9 liter(s) of serous fluid was removed. Catheter was withdrawn and hemostasis achieved. There i s no immediate complication. The patient discharged in stable condition without complication. IMPRESSION: STATUS POST ULTRASOUND GUIDED THORACENTESIS, POST PROCEDURE CHEST X-RAY showed pneumothor ax, possible trapped lung, discussed with Allyn Whatley at the time of interpretation. Patient remained asymptomatic. THIS PROCEDURE WAS PERFORMED BY THE UNDERSIGNED. Specimen sent for laboratory analysis .
[2021-05-06 16:49] LABS: Glucose,Whole Blood 183 mg/dL (75-99)
[2021-05-06 19:59] LABS: Glucose,Whole Blood 196 mg/dL (75-99)
[2021-05-06] MEDS: ATORVASTATIN 10 MG TAB PO SCH (20:40)
[2021-05-06] MEDS: INSULIN DETEMIR (LEVEMIR) 100 UNIT/ML SYR SQ SCH (20:40)
--- NOTE | 2021-05-06 22:40 | P.PN ---
Subjective HISTORY OF PRESENT ILLNESS: This is a 86-year-old female with a past medical history significant for nonischemic cardiomyopathy with previous AICD implantation, permanent atrial fibrillation, severe mitral regurgitation, diabetes, congestive heart failure, hyperlipidemia, and hypothyroidism. Patient follows in the office with Dr. Rucker. We have been asked to see the patient in consultation for congestive heart failure. Patient examined at the bedside. Patient presented to the hospital with a chief complaint of shortness of breath. Patient states for the past 2 days she has become increasingly short of breath. She states that she tried wearing her oxygen at home but her shortness of breath did not improve. She denied any chest pain or pressure. Denies any fever or chills. The patient was found to be in acute CHF and was started on IV Lasix. She states her breathing has improved this morning. She is currently wearing a BiPAP at the time of examination. * EKG reveals ventricular paced rhythm * Chest xray congestive heart failure with moderate pleural effusions. There is increasing pulmonary congestion and pleural fluid compared to old exam. * Laboratory data: WBC 8.9. Hemoglobin 15.2. Platelet count 167. D-dimer 0.67. Sodium 140. Potassium 4.6. BUN 36. Creatinine 1.65. Lactic acid 3.0. Repeat 2.0. Troponin negative 3. ProBNP 15,800. * Current home cardiac medications include amiodarone 200 mg daily, metoprolol succinate 100 mg daily, Aldactone 12.5 mg daily, Lasix 40 mg twice a day, simvastatin 20 mg at night, warfarin 1 mg Tuesday and 1.5 mg Tuesday, and Entresto 24-26mg BID. * Most recent echocardiogram obtained in December 2020 revealed ejection fractio n 20-25% with severe MR * Cardiac catheterization history: 2007 revealing normal coronary arteries 05/01/2021 Patient examined this point the bedside. Patient denies chest pain or pressure. She continues to report shortness of breath with exertion. She denies shortness of breath at rest. She remains on IV Lasix 40 mg every 8 hours. Creatinine today is increased to 1.90. Repeat proBNP today is 12,900. Chest x- ray reveals persistent cardiomegaly with central vascular congestion along with moderate sized right and tiny left pleural effusions. 05/04/2021 Patient examined this morning at the bedside. Patient denies chest pain or pressure. Patient reports improvement in her shortness of breath. She remains on Coumadin. INR 1.7. She remains on IV lasix. Chest US today reveals large right pleural effusion with tissue within anterior pocket of lung. Creatinine 1.55 today. 05/05/2021 Patient examined this morning. She is sitting up in the chair. She denies chest pain or pressure. She denies any shortness of breath at rest. She continues to report shortness of breath when up and ambulating to the bathroom. She remains on IV Lasix 40 mg every 12 hours. Patient's Coumadin was held yesterday. INR today 1.8. Plan is for right thoracentesis per interventional radiology when INR improves. 05/06 Patient seen and examined. She underwent right thoracentecisis with approximately 900cc outpt. Repeat CXray showed a right sided pneumothorax. She admits her breathing has been much better however. No chest pain or pressure. Continues to diurese well. PHYSICAL EXAM: VITAL SIGNS: Reviewed. GENERAL: Well-developed in no acute distress. HEENT: Head is normocephalic. Pupils are equal, round. Sclerae anicteric. Mucous membranes of the mouth are moist. Neck supple. No JVD or thyromegaly LUNGS: Decreased breath sounds on the right HEART: Regular rate and rhythm. S1 and S2 heard. Systolic murmur noted. ABDOMEN: Soft. Nondistended. Nontender. EXTREMITIES: Normal range of motion. No clubbing or cyanosis. Peripheral pulses intact. No lower extremity edema NEUROLOGIC: Awake and alert. Oriented x 3. ASSESSMENT: Acute on chronic congestive heart failure with reduced EF, 20-25% Large right pleural effusion s/p thoracentesis 05/06 Permanent atrial fibrillation Nonischemic cardiomyopathy with previous AICD implantation Hyperlipidemia Severe mitral regurgitation Acute on Chronic kidney disease Diabetes Hypothyroidism Post procedure pneumothorax PLAN: Continue current cardiac medications Continue diuresis Accurate I&O Daily weights Monitor kidney function Subtheraputic INR and s/p Vitamin K. We will give 5mg Coumadin tonight as it will take 2-3 days to rise and monitor if any further intervention is needed for right sided pneumothorax. She appears improving clinically. Objective - Vital Signs Vital signs: Vital Signs Temp 98.7 F 05/06/21 20:00 Pulse 70 05/06/21 20:00 Resp 18 05/06/21 20:00 BP 94/57 05/06/21 20:00 Pulse Ox 93 L 05/06/21 20:00 Intake & Output 05/06/21 05/06/21 05/07/21 06:59 18:59 06:59 Intake Total 120 Output Total 1400 400 Balance -1400 120 -400 Intake: Oral 120 Output: Urine 1400 400 Other: Voiding Method Toilet Toilet Toilet # Voids 1 # Bowel Movements 1 - Labs CBC & Chem 7: 05/03/21 08:33 05/06/21 08:26 Labs: Abnormal Lab Results - Last 24 Hours (Table) 05/06/21 05/06/21 05/06/21 Range/Units 06:30 08:26 08:26 PT 14.3 H (9.0-12.0) sec INR 1.4 H (<1.2) BUN 36 H (7-17) mg/dL Creatinine 1.54 H (0.52-1.04) mg/dL Glucose 111 H (74-99) mg/dL POC Glucose (mg/dL) 115 H (75-99) mg/dL 05/06/21 05/06/21 05/06/21 Range/Units 10:50 16:46 19:57 PT (9.0-12.0) sec INR (<1.2) BUN (7-17) mg/dL Creatinine (0.52-1.04) mg/dL Glucose (74-99) mg/dL POC Glucose (mg/dL) 105 H 183 H 196 H (75-99) mg/dL
[2021-05-06] MEDS ORDERED: WARFARIN 5 MG TAB PO ONE (22:45)
[2021-05-07 01:35] LABS: Appearance,BF Clear
[2021-05-07] MEDS: SODIUM CHLORIDE 0.9% 1,000 ML IV SCH (02:32)
[2021-05-07 04:12] LABS: Glucose, BF Source Pleural Fluid; Glucose, Body Fluid 123 mg/dL; LDH, Body Fluid Source Pleural Fluid; T. Protein, Body Fluid Source Pleural Fluid; Total Protein, Body Fluid 3340 mg/dL
[2021-05-07 06:19] LABS: Glucose,Whole Blood 90 mg/dL (75-99)
[2021-05-07] MEDS: INSULIN ASPART (NovoLOG) 100 UNIT/ML VIAL SQ SCH ×4 (06:25→20:28)
[2021-05-07] MEDS: LEVOTHYROXINE 25 MCG TAB PO SCH (06:26)
--- NOTE | 2021-05-07 07:59 | XR ---
EXAMINATION TYPE: XR chest 1V portable DATE OF EXAM: 05/07/2021 COMPARISON: Chest x-ray 05/06/2021 HISTORY: Pneumothorax TECHNIQUE: Single frontal view of the chest is obtained. FINDINGS: Right-sided pneumothorax shows a similar appearance accounting for differences in techniqu e, likely somewhat improved. Cardiac mediastinal silhouette shows an enlarged heart. Aorta is dense. Generator is present in the left pectoral region, there are leads in the right ventricle and coronary sinus, there are overlying leads. IMPRESSION: Improvement in the right sided pneumothorax.
[2021-05-07 09:08] LABS: Prothrombin Time 11.3 sec (9.0-12.0)
[2021-05-07] MEDS: FUROSEMIDE 10 MG/ML 4 ML VIAL IV SCH (09:09)
[2021-05-07] MEDS: METOPROLOL SUCCINATE (ER) 100 MG TAB.ER.24H PO SCH (09:10)
[2021-05-07] MEDS: SACUBITRIL/VALSARTAN 24 MG-26 MG TABLET PO SCH ×2 (09:10→20:30)
[2021-05-07] MEDS: AMIODARONE 200 MG TAB PO SCH (09:10)
[2021-05-07] MEDS: SPIRONOLACTONE 25 MG TAB PO SCH (09:10)
[2021-05-07 09:20] LABS: Calcium 8.6 mg/dL (8.4-10.2); Potassium 3.5 mmol/L (3.5-5.1)
--- NOTE | 2021-05-07 10:27 | P.PN ---
Subjective Progress Note Date: 05/07/21 HISTORY OF PRESENT ILLNESS 86-year-old female with history of congestive heart failure Patient uses home oxygen at night however over the past day or 2 she's been struggling with breathing she's having increased shortness of breath even at rest while doing nothing. She is unable to lay flat and tonight when she tried to "sleep she couldn't due to shortness of breath and decided to come into the hospital for evaluation she also noticed bilateral leg edema. She denies any fevers or chills denies any coughing or runny nose denies any chest pain denies any abdominal pain denies any nausea vomiting or GI or urinary habits changes. In the ED chest x-ray showed pulmonary congestion with pleural effusion. Blood work overall unremarkable except for elevated lactic acid Patient is currently on BiPAP and gives limited history but denies any recent hospitalization or traveling denies any history of blood clots 05/04: Patient is seen today in follow-up. Her breathing is improved, no chest pain. She is ambulating without lightheadedness or dizziness. Ultrasound of the chest revealed large right-sided pleural effusion. Pulmonary medicine has been following the patient 05/05: Patient has been afebrile, heart rate 69, blood pressure 90/65, pulse ox 97% on room air. She states that her appetite is okay. She is not requiring oxygen. Pulmonary medicine as recommended IR for thoracentesis. Coumadin was placed on hold yesterday and unfortunately INR is 1.8. We'll continue to hold INR in anticipation of possible thoracentesis tomorrow. Cardiology has ordered 1 dose of vitamin K 2.5 mg today. She is continued on IV Lasix 40 mg every 12 hours and Aldactone 12.5 mg daily. 05/06: Repeat INR is 1.4, BUN 36 creatinine 1.54. Capillary blood glucose running between 105 and 137. Patient underwent right-sided thoracentesis with removal of 900 mL of yellow fluid. Repeat chest x-ray reveals right-sided pneumothorax measuring 3.9 cm. Pulmonary medicine was notified and discharge to home held today. 05/07: Patient denies having any chest pain, no shortness of breath. Repeat chest x-ray reveals improvement in the right-sided pneumothorax. Cytology is pending from pleural fluid. Patient has been afebrile, heart rate 70, blood pressure 96/59, pulse ox 96% on room air. Repeat blood work reveals electrolytes within normal limits. BUN 34 creatinine 1.54. REVIEW OF SYSTEMS Constitutional: No fever, no chills, no night sweats. No weight change. No weakness, fatigue or lethargy. No daytime sleepiness. EENT: No headache. No blurred vision or double vision, no loss of vision. No loss of Hearing, no ringing in the ears, no dizziness. No nasal drainage or congestion. No epistaxis. No sore throat. Lungs: Mild and feels that she is breathing much easier since fluid was removed yesterday shortness of breath, cough, no sputum production. No wheezing. Cardiovascular: No chest pain, no lower extremity edema. No palpitations. No paroxysmal nocturnal dyspnea. No orthopnea. No lightheadedness or dizziness. No syncopal episodes. Abdominal: No abdominal pain. No nausea, vomiting. No diarrhea. No constipation. No bloody or tarry stools. No loss of appetite. Genitourinary: No dysuria, increased frequency, urgency. No urinary retention. Musculoskeletal: No myalgias. No muscle weakness, no gait dysfunction, no dameon quent falls. No back pain. No neck pain. Integumentary: No wounds, no lesions. No rash or pruritus. No unusual bruising. No change in hair or nails. Neurologic: No aphasia. No facial droop. No change in mentation. No head injury. No headache. No paralysis. No paresthesia. Psychiatric: No depression. No anxiety. No mood swings. Endocrine: No abnormal blood sugars. No weight change. PHYSICAL EXAMINATION Gen: This is an 85-year-old female. She is resting in and appears to be comfortable and in no acute distress. HEENT: Head is atraumatic, normocephalic. Pupils equal, round. Sclerae is anicteric. NECK: Supple. No JVD. No lymphadenopathy. No thyromegaly. LUNGS: Clear to auscultation bilaterally. No intercostal retractions. HEART: Irregularly irregular rhythm with systolic murmur. ABDOMEN: Soft. Bowel sounds are present. No masses. No tenderness. EXTREMITIES: No pedal edema. No calf tenderness. NEUROLOGICAL: Patient is awake, alert and oriented x3. Cranial nerves 2 through 12 are grossly intact. ASSESSMENT AND PLAN Acute exacerbation of systolic congestive heart failure EF 30-35% Right pleural effusion Permanent A fib - Continue with Lasix 40 mg IV twice a day. 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 DISCHARGE PLAN Home Impression and plan of care have been directed as dictated by the signing physician. Nicole Park nurse practitioner acting as scribe for signing physician. Objective - Vital Signs Vital signs: Vital Signs Temp 98.3 F 05/07/21 04:22 Pulse 70 05/07/21 04:22 Resp 16 05/07/21 04:22 BP 96/59 05/07/21 04:22 Pulse Ox 96 05/07/21 04:22 Intake & Output 05/06/21 05/07/21 05/07/21 18:59 06:59 18:59 Intake Total 120 Output Total 400 Balance 120 -400 Weight 66 kg Intake: Oral 120 Output: Urine 400 Other: Voiding Method Toilet Toilet # Voids 1 1 - Labs CBC & Chem 7: 05/03/21 08:33 05/07/21 08:20 Labs: Abnormal Lab Results - Last 24 Hours (Table) 05/06/21 05/06/21 05/06/21 Range/Units 08:26 08:26 10:50 PT 14.3 H (9.0-12.0) sec INR 1.4 H (<1.2) BUN 36 H (7-17) mg/dL Creatinine 1.54 H (0.52-1.04) mg/dL Glucose 111 H (74-99) mg/dL POC Glucose (mg/dL) 105 H (75-99) mg/dL 05/06/21 05/06/21 Range/Units 16:46 19:57 PT (9.0-12.0) sec INR (<1.2) BUN (7-17) mg/dL Creatinine (0.52-1.04) mg/dL Glucose (74-99) mg/dL POC Glucose (mg/dL) 183 H 196 H (75-99) mg/dL Microbiology - Last 24 Hours (Table) 05/06/21 13:00 Body Fluid Culture - Preliminary Pleural Fluid 05/06/21 13:00 Acid Fast Bacilli Culture - Preliminary Pleural Fluid 05/06/21 13:00 Anaerobic Culture - Preliminary Pleural Fluid 05/06/21 13:00 Fungal Culture - Preliminary Pleural Fluid
[2021-05-07 11:53] LABS: Glucose,Whole Blood 134 mg/dL (75-99)
--- NOTE | 2021-05-07 12:28 | P.PN ---
Subjective Progress Note Date: 05/07/21 HISTORY OF PRESENT ILLNESS: This is a 86-year-old female with a past medical history significant for nonischemic cardiomyopathy with previous AICD implantation, permanent atrial fibrillation, severe mitral regurgitation, diabetes, congestive heart failure, hyperlipidemia, and hypothyroidism. Patient follows in the office with Dr. Rucker. We have been asked to see the patient in consultation for congestive heart failure. Patient examined at the bedside. Patient presented to the hospital with a chief complaint of shortness of breath. Patient states for the past 2 days she has become increasingly short of breath. She states that she tried wearing her oxygen at home but her shortness of breath did not improve. She denied any chest pain or pressure. Denies any fever or chills. The patient was found to be in acute CHF and was started on IV Lasix. She states her breathing has improved this morning. She is currently wearing a BiPAP at the time of examination. * EKG reveals ventricular paced rhythm * Chest xray congestive heart failure with moderate pleural effusions. There is increasing pulmonary congestion and pleural fluid compared to old exam. * Laboratory data: WBC 8.9. Hemoglobin 15.2. Platelet count 167. D-dimer 0.67. Sodium 140. Potassium 4.6. BUN 36. Creatinine 1.65. Lactic acid 3.0. Repeat 2.0. Troponin negative 3. ProBNP 15,800. * Current home cardiac medications include amiodarone 200 mg daily, metoprolol succinate 100 mg daily, Aldactone 12.5 mg daily, Lasix 40 mg twice a day, simvastatin 20 mg at night, warfarin 1 mg Tuesday and 1.5 mg Tuesday, and Entresto 24-26mg BID. * Most recent echocardiogram obtained in December 2020 revealed ejection fraction 20-25% with severe MR * Cardiac catheterization history: 2007 revealing normal coronary arteries 05/01/2021 Patient examined this point the bedside. Patient denies chest pain or pressure. She continues to report shortness of breath with exertion. She denies shortness of breath at rest. She remains on IV Lasix 40 mg every 8 hours. Creatinine today is increased to 1.90. Repeat proBNP today is 12,900. Chest x- ray reveals persistent cardiomegaly with central vascular congestion along with moderate sized right and tiny left pleural effusions. 05/04/2021 Patient examined this morning at the bedside. Patient denies chest pain or pressure. Patient reports improvement in her shortness of breath. She remains on Coumadin. INR 1.7. She remains on IV lasix. Chest US today reveals large right pleural effusion with tissue within anterior pocket of lung. Creatinine 1.55 today. 05/05/2021 Patient examined this morning. She is sitting up in the chair. She denies chest pain or pressure. She denies any shortness of breath at rest. She continues to report shortness of breath when up and ambulating to the bathroom. She remains on IV Lasix 40 mg every 12 hours. Patient's Coumadin was held yesterday. INR today 1.8. Plan is for right thoracentesis per interventional radiology when INR improves. 05/07/2021 Patient examined this morning at the bedside. She is sitting up in the chair. She denies chest pain or pressure. She denies any shortness of breath. She is status post thoracentesis yesterday with removal of 900cc. She developed a pneumothorax postprocedure. Repeat chest x-ray today reveals improvement in right-sided pneumothorax. PHYSICAL EXAM: VITAL SIGNS: Reviewed. GENERAL: Well-developed in no acute distress. HEENT: Head is normocephalic. Pupils are equal, round. Sclerae anicteric. Mucous membranes of the mouth are moist. Neck supple. No JVD or thyromegaly LUNGS: Respirations even and unlabored. Lungs clear. Right sided diminished but improved. HEART: Regular rate and rhythm. S1 and S2 heard. Systolic murmur noted. ABDOMEN: Soft. Nondistended. Nontender. EXTREMITIES: Normal range of motion. No clubbing or cyanosis. Peripheral pulses intact. No lower extremity edema NEUROLOGIC: Awake and alert. Oriented x 3. ASSESSMENT: Shortness of breath Acute on chronic congestive heart failure with reduced EF, 20-25% Large right pleural effusion, status post thoracentesis Permanent atrial fibrillation Nonischemic cardiomyopathy with previous AICD implantation Hyperlipidemia Severe mitral regurgitation Acute on Chronic kidney disease Diabetes Hypothyroidism Post procedure pneumothorax PLAN: Continue current cardiac medications Discontinue IV lasix. Begin oral lasix 40mg BID. Continue Coumadin. Monitor INR. Further recommendations pending patient course Nurse practitioner note has been reviewed by physician. Signing provider agrees with the documented findings, assessment, and plan of care. Objective - Vital Signs Vital signs: Vital Signs Temp 97.7 F 05/07/21 07:55 Pulse 70 05/07/21 07:55 Resp 16 05/07/21 07:55 BP 97/62 05/07/21 07:55 Pulse Ox 97 05/07/21 07:55 Intake & Output 05/06/21 05/07/21 05/07/21 18:59 06:59 18:59 Intake Total 120 120 Output Total 400 600 Balance 120 -400 -480 Weight 66 kg Intake: Oral 120 120 Output: Urine 400 600 Other: Voiding Method Toilet Toilet # Voids 1 1 - Labs CBC & Chem 7: 05/03/21 08:33 05/07/21 08:20 Labs: Abnormal Lab Results - Last 24 Hours (Table) 05/06/21 05/06/21 05/07/21 Range/Units 16:46 19:57 08:20 BUN 34 H (7-17) mg/dL Creatinine 1.54 H (0.52-1.04) mg/dL Glucose 140 H (74-99) mg/dL POC Glucose (mg/dL) 183 H 196 H (75-99) mg/dL 05/07/21 Range/Units 11:51 BUN (7-17) mg/dL Creatinine (0.52-1.04) mg/dL Glucose (74-99) mg/dL POC Glucose (mg/dL) 134 H (75-99) mg/dL Microbiology - Last 24 Hours (Table) 05/06/21 13:00 Gram Stain - Preliminary Pleural Fluid Body Fluid Culture - Preliminary 05/06/21 13:00 Acid Fast Bacilli Culture - Preliminary Pleural Fluid 05/06/21 13:00 Anaerobic Culture - Preliminary Pleural Fluid 05/06/21 13:00 Fungal Culture - Preliminary Pleural Fluid
--- NOTE | 2021-05-07 13:58 | P.PN ---
Subjective Progress Note Date: 05/07/21 Principal diagnosis: Congestive heart failure. Acute exacerbation of systolic congestive heart failure This is a very pleasant 86-year-old female patient with a known history of congestive heart failure and home oxygen, atrial fibrillation anticoagulated with warfarin, hypothyroidism, diabetes mellitus, hyperlipidemia, AICD placement. She presented here to the emergency room on 04/29/2022 with complaints of increasing shortness of breath and orthopnea. Increased lower ext remity edema. She was initially placed on BiPAP and admitted to the selective care unit. Yesterday his chest x-ray showed persistent cardiomegaly with central vascular congestion and a moderate right and small left pleural effusions. Associated basilar atelectasis/infiltrate. We are consulted for the same. She is seen today currently resting comfortably in bed. Awake and alert in no acute distress. Does have some dyspnea on minimal exertion. He is maintaining good O2 saturations in the mid 90s on 3 L/m per nasal cannula. Afebrile. Hemodynamically stable. INR 2.0. Sodium 140. Potassium 3.6. BUN 49. Creatinine 1.74. Glucose 228. ProBNP 12,900. White count 10.2. Hemoglobin 13.1. She's been initiated on IV diuretics. Ultrasound of the chest revealed a 15.4 cm pocket on the right and 1.8 cm pocket on the left. The right pleural effusion did demonstrate some lung tissue within the fluid. Reevaluated today on 05/03/2021, clinically the patient is doing great, she has hardly any cough no wheezing no shortness of breath, chest x-ray continues to show moderate sized pleural effusion, however her ultrasound was not the best quality ultrasound, and the pictures noted showed lung tissue floating in the fluid pocket, hence I was a bit reluctant to perform thoracentesis, not to mention the patient is doing better clinically. Patient continues to diurese with Lasix, I am considering repeating ultrasound on this patient in the morning, and based on the ultrasound findings may have to do thoracentesis or at least defer to interventional radiology to do it would live ultrasound in place. This will be decided upon tomorrow. In the meantime the patient is doing great, and clinically much better. Progress note dated 05/04/2021. Clinically, the patient seems be doing relatively well. She is on room air. She had a repeat ultrasound of the right chest. There is a large pocket of fluid, unfortunately, lung is noted within the fluid pocket. We've asked interventional radiology consider doing a thoracentesis. The patient is on blood thinner. Her INR was 1.8. The patient could be considered for possible discharge home, and have the ultrasound done as an outpatient. Today's labs including INR 1.7, sodium 141, potassium 3.6, chlorides 102, CO2 32, BUN 37, and creatinine 1.55. The repeat ultrasound of the right chest shows a 15.8 cm pocket, but unfortunately, tissue within the anterior pocket. Progress note dated 05/05/2021. 86-year-old female, seen in room 354. She's currently on 2 L nasal cannula. The patient is resting comfortably without any distress. The patient does have a large right-sided pleural effusion. Unfortunately, there is lung tissue that is noted to be in the fluid pocket. We did ask interventional radiology to consider a thoracentesis, ultrasound-guided. Her most recent INR was 1.7. The patient's Coumadin is being held. Today's INR unfortunately is elevated at 1.8. Progress note dated 05/06/2021. 86-year-old female seen in room 354. The patient is to have a ultrasound-guided thoracentesis on the right chest, performed by interventional radiology today. The patient remains on 2 L nasal cannula. She is very comfortable and very stable. PT was 14.3 with an INR of 1.4, which is much improved. Sodium 140, potassium 3.6, chlorides 103, CO2 29, anion gap 8, BUN 36, with a creatinine of 1.54. Calcium is 8.7. The patient is not receiving any IV fluids. Progress note dated 05/07/2021. 86-year-old female, again seen in room 354. The patient had ultrasound-guided thoracentesis of the right chest, which was performed by interventional radiology. The patient is currently on room air. She did sustain a small to moderate sized pneumothorax on that side. Today's chest x-ray shows that the pneumothorax is improved. Labs today included a PT of 11.3, INR 1. Sodium 140, potassium 3.5, chlorides 104, CO2 29, BUN 34, and creatinine 1.54. Objective - Vital Signs Vital signs: Vital Signs Temp 98.4 F 05/07/21 12:49 Pulse 69 05/07/21 12:49 Resp 16 05/07/21 12:49 BP 96/62 05/07/21 12:49 Pulse Ox 96 05/07/21 12:49 Intake & Output 05/06/21 05/07/21 05/07/21 18:59 06:59 18:59 Intake Total 120 120 Output Total 400 600 Balance 120 -400 -480 Weight 66 kg Intake: Oral 120 120 Output: Urine 400 600 Other: Voiding Method Toilet Toilet # Voids 1 1 - Exam No acute distress, oriented 3. Currently on 2 L. Saturations are 96%. HEENT examination is grossly unremarkable. Neck supple. Full range of motion. No adenopathy thyromegaly or neck vein distention. Cardiovascular examination reveals regular rhythm rate. S1-S2 normal. No S3 or S4. No discernible murmur noted. Heart sounds are distant. Heart rate 69 bpm. Lungs reveal scattered rhonchi and crackles. Diminished breath sounds on the r ight side. No wheezes. Abdomen soft bowel sounds are heard. No masses or tenderness. Extremities are intact. No cyanosis clubbing or edema. Skin is without rash or lesion. Neurologic examination is brief but nonfocal. - Labs CBC & Chem 7: 05/03/21 08:33 05/07/21 08:20 Labs: Abnormal Lab Results - Last 24 Hours (Table) 05/06/21 05/06/21 05/07/21 Range/Units 16:46 19:57 08:20 BUN 34 H (7-17) mg/dL Creatinine 1.54 H (0.52-1.04) mg/dL Glucose 140 H (74-99) mg/dL POC Glucose (mg/dL) 183 H 196 H (75-99) mg/dL 05/07/21 Range/Units 11:51 BUN (7-17) mg/dL Creatinine (0.52-1.04) mg/dL Glucose (74-99) mg/dL POC Glucose (mg/dL) 134 H (75-99) mg/dL Microbiology - Last 24 Hours (Table) 05/06/21 13:00 Gram Stain - Preliminary Pleural Fluid Body Fluid Culture - Preliminary 05/06/21 13:00 Acid Fast Bacilli Culture - Preliminary Pleural Fluid 05/06/21 13:00 Anaerobic Culture - Preliminary Pleural Fluid 05/06/21 13:00 Fungal Culture - Preliminary Pleural Fluid Assessment and Plan Assessment: Acute on chronic hypoxemic respiratory failure, secondary to acute exacerbation of systolic CHF. Large right-sided pleural effusion, status post thoracentesis by interventional radiology, on 05/06/2021, and the development of a right-sided pneumothorax. Cardiomyopathy, with an ejection fraction of 20-25%. History of severe mitral regurgitation. Status post AICD placement for cardiomyopathy. History of atrial fibrillation. Diabetes mellitus. Hyperlipidemia. Hypothyroidism. Plan: Plan dated 05/04/2021. The patient's Coumadin is on hold. INR is 1.7. We've asked interventional radiology to consider ultrasound-guided thoracentesis. Alternatively, the patient could be discharged home, and brought back as an outpatient. Clinically, she looks very stable. Labs, x-rays, medications, and chest ultrasound are all reviewed. Plan dated 05/05/2021. The patient's INR today was 1.8. The patient's Coumadin is currently on hold. We did a interventional radiology to consider ultrasound-guided thoracentesis. Alternatively, the patient could be discharged home, and brought back as an outpatient. Clinically she stable. Probably does not need oxygen therapy. Labs, x-rays, and medications are reviewed. Overall prognosis remains guarded. We will continue to follow and make recommendations on this patient, where appropriate. Plan dated 05/06/2021. The patient should be able to have her ultrasound-guided right-sided thoracentesis today, by interventional radiology. The patient is clinically very stable. Her saturations on room air as well as on oxygen, are excellent. The patient could be considered for possible discharge in the near future. Pulmonary status is otherwise stable. Prognosis is guarded. Plan dated 05/07/2021. The patient's doing well. Currently on room air. She tells me that she was told that she'll be discharged home tomorrow. The pneumothorax on today's chest x-ray, his better. We did order a chest x-ray for tomorrow. Clinically she is doing well. Respiratory status and hemodynamics are stable. We will continue to follow and make recommendations where appropriate. Time with Patient: Less than 30
[2021-05-07] MEDS: FUROSEMIDE 40 MG TAB PO SCH (15:29)
[2021-05-07 16:24] LABS: Glucose,Whole Blood 136 mg/dL (75-99)
[2021-05-07] MEDS ORDERED: WARFARIN 2 MG TAB PO ONE (18:00)
[2021-05-07 20:17] LABS: Glucose,Whole Blood 129 mg/dL (75-99)
[2021-05-07] MEDS: INSULIN DETEMIR (LEVEMIR) 100 UNIT/ML SYR SQ SCH (20:29)
[2021-05-07] MEDS: ATORVASTATIN 10 MG TAB PO SCH (20:30)
[2021-05-07 23:49] VITALS: RESP 18
[2021-05-08] MEDS: SODIUM CHLORIDE 0.9% 1,000 ML IV SCH (03:14)
[2021-05-08] MEDS: LEVOTHYROXINE 25 MCG TAB PO SCH (05:54)
[2021-05-08 06:10] LABS: Glucose,Whole Blood 111 mg/dL (75-99)
[2021-05-08] MEDS: INSULIN ASPART (NovoLOG) 100 UNIT/ML VIAL SQ SCH ×2 (06:27→12:27)
--- NOTE | 2021-05-08 08:45 | XR ---
EXAMINATION TYPE: XR chest 1V portable DATE OF EXAM: 05/08/2021 COMPARISON: X-ray dated 05/07/2021 HISTORY: Right pneumothorax TECHNIQUE: Single frontal view of the chest is obtained. FINDINGS: Slightly smaller right-sided pneumothorax measuring up to 2.8 cm in the right hemithoracic apex shefali red to 3.1 cm previously. Persistent residual small amount of right pleural fluid. Suspected right lower lung zone atelectasis. Unchanged lungs otherwise. Unchanged cardiomediastinal s ilhouette, left chest wall dual-lead pacemaker and bony thoracic cage. IMPRESSION: Slightly smaller right-sided pneumothorax as described above.
[2021-05-08] MEDS: AMIODARONE 200 MG TAB PO SCH (08:58)
[2021-05-08] MEDS: FUROSEMIDE 40 MG TAB PO SCH (08:58)
[2021-05-08] MEDS: SACUBITRIL/VALSARTAN 24 MG-26 MG TABLET PO SCH (08:59)
--- NOTE | 2021-05-08 10:16 | P.DS ---
Providers Date of admission: 04/30/21 01:08 Expected date of discharge: 05/08/21 Attending physician: Alberto Solomon Consults: 04/30/21 01:07 Consult Physician Routine Consulting Provider: Saran Snowden Consult Reason/Comments: CHF exacerbation Do you want consulting provider notified?: Yes 05/01/21 19:04 Consult Physician Routine Consulting Provider: Rupal Moran Consult Reason/Comments: right pleural effusion Do you want consulting provider notified?: Yes Primary care physician: [facility] Course: HISTORY OF PRESENT ILLNESS 86-year-old female with history of congestive heart failure Patient uses home oxygen at night however over the past day or 2 she's been struggling with breathing she's having increased shortness of breath even at re st while doing nothing. She is unable to lay flat and tonight when she tried to "sleep she couldn't due to shortness of breath and decided to come into the hospital for evaluation she also noticed bilateral leg edema. She denies any fevers or chills denies any coughing or runny nose denies any chest pain denies any abdominal pain denies any nausea vomiting or GI or urinary habits changes. In the ED chest x-ray showed pulmonary congestion with pleural effusion. Blood work overall unremarkable except for elevated lactic acid Patient is currently on BiPAP and gives limited history but denies any recent hospitalization or traveling denies any history of blood clots 05/04: Patient is seen today in follow-up. Her breathing is improved, no chest pain. She is ambulating without lightheadedness or dizziness. Ultrasound of the chest revealed large right-sided pleural effusion. Pulmonary medicine has been following the patient 05/05: Patient has been afebrile, heart rate 69, blood pressure 90/65, pulse ox 97% on room air. She states that her appetite is okay. She is not requiring oxygen. Pulmonary medicine as recommended IR for thoracentesis. Coumadin was placed on hold yesterday and unfortunately INR is 1.8. We'll continue to hold INR in anticipation of possible thoracentesis tomorrow. Cardiology has ordered 1 dose of vitamin K 2.5 mg today. She is continued on IV Lasix 40 mg every 12 hours and Aldactone 12.5 mg daily. 05/06: Repeat INR is 1.4, BUN 36 creatinine 1.54. Capillary blood glucose running between 105 and 137. Patient underwent right-sided thoracentesis with removal of 900 mL of yellow fluid. Repeat chest x-ray reveals right-sided pneumothorax measuring 3.9 cm. Pulmonary medicine was notified and discharge to home held today. 05/07: Patient denies having any chest pain, no shortness of breath. Repeat chest x-ray reveals improvement in the right-sided pneumothorax. Cytology is pending from pleural fluid. Patient has been afebrile, heart rate 70, blood pressure 96/59, pulse ox 96% on room air. Repeat blood work reveals electrolytes within normal limits. BUN 34 creatinine 1.54. 05/08: Repeat chest x-ray reveals slightly smaller right-sided pneumothorax. Patient continues to state that her breathing is much easier said she had the thoracentesis. No chest pain. She has home oxygen which utilizes at night only. C. difficile toxin came back negative. She has been afebrile, heart rate 71, blood pressure 87/51, pulse ox 94% on room air. Capillary blood glucose running between 111 and 144. Patient has been seen by pulmonary medicine and cleared for discharge. Patient will be discharged home in stable condition. Discuss home care and patient is open to having palliative care. This is to be arranged by community case manager. ASSESSMENT AND PLAN Acute exacerbation of systolic congestive heart failure EF 30-35% Right pleural effusion Permanent A fib CKD IV Diabetes mellitus type 2, A1C 7 Dyslipidemia Transaminitis Postprocedural pneumothorax. DISCHARGE PLAN Home Greater than 35 minutes was utilized and coordinating patient's discharge. Impression and plan of care have been directed as dictated by the signing physician. Nicole Park nurse practitioner acting as scribe for signing physician. Patient Condition at Discharge: Good Plan - Discharge Summary Discharge Rx Participant: No New Discharge Prescriptions: Continue Spironolactone [Aldactone] 12.5 mg PO DAILY@0900 Simvastatin [Zocor] 20 mg PO HS@2100 Magnesium Chloride [Mag64] 64 mg PO DAILY@0700 Amiodarone [Cordarone] 200 mg PO DAILY@0900 Levothyroxine Sodium [Synthroid] 25 mcg PO DAILY@0700 Warfarin [Coumadin] 1 mg PO SUTUTHSA@2100 Warfarin [Coumadin] 1.5 mg PO MOWEFR@2100 calcium polycarbophiL [Fibercon] 625 mg PO DAILY PRN PRN Reason: Constipation Furosemide [Lasix] 40 mg PO BID@0900,1600 #60 tab Loperamide [Imodium] 2 mg PO BID@899,2099 Triamcinolone 0.1% Ointment [Kenalog 0.1% Ointment] 1 applic TOPICAL DAILY@899 glipiZIDE [Glucotrol] 5 mg PO BID@899,2099 Cetirizine HCl 10 mg PO DAILY PRN PRN Reason: Allergy Symptoms Metoprolol Succinate [Toprol XL] 100 mg PO DAILY@899 Sacubitril/Valsartan [Entresto 24 mg-26 mg Tablet] 1 tab PO BID@899,2099 Discontinued Doxycycline Hyclate 50 mg PO DAILY@899 Clindamycin Gel [Cleocin T 1% Gel] 1 applic TOPICAL DIRECTED Discharge Medication List Magnesium Chloride [Mag64] 64 mg PO DAILY@69910/22/15 [History] Simvastatin [Zocor] 20 mg PO HS@209910/22/15 [History] Spironolactone [Aldactone] 12.5 mg PO DAILY@89910/22/15 [History] Amiodarone [Cordarone] 200 mg PO DAILY@89911/24/15 [History] Levothyroxine Sodium [Synthroid] 25 mcg PO DAILY@69903/30/18 [History] Warfarin [Coumadin] 1 mg PO SUTUTHSA@209903/30/18 [History] Warfarin [Coumadin] 1.5 mg PO MOWEFR@209903/30/18 [History] calcium polycarbophiL [Fibercon] 625 mg PO DAILY PRN 11/19/18 [History] Cetirizine HCl 10 mg PO DAILY PRN 11/21/20 [History] Metoprolol Succinate [Toprol XL] 100 mg PO DAILY@89911/21/20 [History] glipiZIDE [Glucotrol] 5 mg PO BID@899,209911/21/20 [History] Furosemide [Lasix] 40 mg PO BID@0900,1600 #60 tab 12/24/20 [Rx] Loperamide [Imodium] 2 mg PO BID@0900,209904/29/21 [History] Sacubitril/Valsartan [Entresto 24 mg-26 mg Tablet] 1 tab PO BID@899,209904/29/21 [History] Triamcinolone 0.1% Ointment [Kenalog 0.1% Ointment] 1 applic TOPICAL DAILY@0900 04/29/21 [History] Follow up Appointment(s)/Referral(s): Alberto Solomon MD [Primary Care Provider] - 05/15/21 1:00 pm (Appointment is with Tung) Duke Harry DO [Doctor of Osteopathic Medicine] - 05/20/21 2:00 pm Ivan Rucker MD [STAFF PHYSICIAN] - 05/19/21 2:30 pm (Appt is at main office [address] [place] [address]) Activity/Diet/Wound Care/Special Instructions: Palliative Care Discharge/Stand Alone Forms: Community Resources, Help In The Home Discharge Disposition: HOME SELF-CARE
[2021-05-08 10:20] VITALS: TEMP 97.7
[2021-05-08 10:41] LABS: Calcium 9.1 mg/dL (8.4-10.2); Potassium 3.9 mmol/L (3.5-5.1)
[2021-05-08 10:45] LABS: INR 1.5 (<1.2); Prothrombin Time 15.3 sec (9.0-12.0)
[2021-05-08 11:33] LABS: Glucose,Whole Blood 144 mg/dL (75-99)
[2021-05-08] MEDS: SPIRONOLACTONE 25 MG TAB PO SCH (11:45)
[2021-05-08] MEDS: METOPROLOL SUCCINATE (ER) 100 MG TAB.ER.24H PO SCH (11:45)
--- NOTE | 2021-05-08 11:50 | P.PN ---
Subjective Progress Note Date: 05/08/21 Principal diagnosis: Congestive heart failure. Acute exacerbation of systolic congestive heart failure This is a very pleasant 86-year-old female patient with a known history of congestive heart failure and home oxygen, atrial fibrillation anticoagulated with warfarin, hypothyroidism, diabetes mellitus, hyperlipidemia, AICD placement. She presented here to the emergency room on 04/29/2022 with complaints of increasing shortness of breath and orthopnea. Increased lower ext remity edema. She was initially placed on BiPAP and admitted to the selective care unit. Yesterday his chest x-ray showed persistent cardiomegaly with central vascular congestion and a moderate right and small left pleural effusions. Associated basilar atelectasis/infiltrate. We are consulted for the same. She is seen today currently resting comfortably in bed. Awake and alert in no acute distress. Does have some dyspnea on minimal exertion. He is maintaining good O2 saturations in the mid 90s on 3 L/m per nasal cannula. Afebrile. Hemodynamically stable. INR 2.0. Sodium 140. Potassium 3.6. BUN 49. Creatinine 1.74. Glucose 228. ProBNP 12,900. White count 10.2. Hemoglobin 13.1. She's been initiated on IV diuretics. Ultrasound of the chest revealed a 15.4 cm pocket on the right and 1.8 cm pocket on the left. The right pleural effusion did demonstrate some lung tissue within the fluid. Reevaluated today on 05/03/2021, clinically the patient is doing great, she has hardly any cough no wheezing no shortness of breath, chest x-ray continues to show moderate sized pleural effusion, however her ultrasound was not the best quality ultrasound, and the pictures noted showed lung tissue floating in the fluid pocket, hence I was a bit reluctant to perform thoracentesis, not to mention the patient is doing better clinically. Patient continues to diurese with Lasix, I am considering repeating ultrasound on this patient in the morning, and based on the ultrasound findings may have to do thoracentesis or at least defer to interventional radiology to do it would live ultrasound in place. This will be decided upon tomorrow. In the meantime the patient is doing great, and clinically much better. Progress note dated 05/04/2021. Clinically, the patient seems be doing relatively well. She is on room air. She had a repeat ultrasound of the right chest. There is a large pocket of fluid, unfortunately, lung is noted within the fluid pocket. We've asked interventional radiology consider doing a thoracentesis. The patient is on blood thinner. Her INR was 1.8. The patient could be considered for possible discharge home, and have the ultrasound done as an outpatient. Today's labs including INR 1.7, sodium 141, potassium 3.6, chlorides 102, CO2 32, BUN 37, and creatinine 1.55. The repeat ultrasound of the right chest shows a 15.8 cm pocket, but unfortunately, tissue within the anterior pocket. Progress note dated 05/05/2021. 86-year-old female, seen in room 354. She's currently on 2 L nasal cannula. The patient is resting comfortably without any distress. The patient does have a large right-sided pleural effusion. Unfortunately, there is lung tissue that is noted to be in the fluid pocket. We did ask interventional radiology to consider a thoracentesis, ultrasound-guided. Her most recent INR was 1.7. The patient's Coumadin is being held. Today's INR unfortunately is elevated at 1.8. Progress note dated 05/06/2021. 86-year-old female seen in room 354. The patient is to have a ultrasound-guided thoracentesis on the right chest, performed by interventional radiology today. The patient remains on 2 L nasal cannula. She is very comfortable and very stable. PT was 14.3 with an INR of 1.4, which is much improved. Sodium 140, potassium 3.6, chlorides 103, CO2 29, anion gap 8, BUN 36, with a creatinine of 1.54. Calcium is 8.7. The patient is not receiving any IV fluids. Progress note dated 05/07/2021. 86-year-old female, again seen in room 354. The patient had ultrasound-guided thoracentesis of the right chest, which was performed by interventional radiology. The patient is currently on room air. She did sustain a small to moderate sized pneumothorax on that side. Today's chest x-ray shows that the pneumothorax is improved. Labs today included a PT of 11.3, INR 1. Sodium 140, potassium 3.5, chlorides 104, CO2 29, BUN 34, and creatinine 1.54. Progress note dated 05/08/2021. 86-year-old female, again seen in room 354. The patient had ultrasound-guided thoracentesis of the right chest, performed by interventional radiology. The patient did sustain a small right-sided pneumothorax, which is still present on today's chest x-ray. The primary service is thinking about discharging the patient. I told the nurse to make her an appointment to see me next week in the office, at which time, I would repeat the chest x-ray. The patient is a not in any distress, and is clinically very stable. She is on room air. Laboratory data today includes a INR 1.5, sodium 138, potassium 3.9, chlorides 102, CO2 29, BUN 36, and creatinine of 1.80. Chest x-ray shows a slightly smaller right- sided pneumothorax. Objective - Vital Signs Vital signs: Vital Signs Temp 97.7 F 05/08/21 08:00 Pulse 71 05/08/21 08:00 Resp 18 05/08/21 08:00 BP 87/51 05/08/21 08:00 Pulse Ox 94 L 05/08/21 08:00 Intake & Output 05/07/21 05/08/21 05/08/21 18:59 06:59 18:59 Intake Total 480 120 Output Total 900 Balance -420 120 Weight 63.5 kg Intake: Oral 480 120 Output: Urine 900 Other: Voiding Method Toilet Toilet # Voids 1 2 # Bowel Movements 1 - Exam No acute distress, oriented 3. Currently on room air with saturations of 94%. HEENT examination is grossly unremarkable. Neck supple. Full range of motion. No adenopathy thyromegaly or neck vein distention. Cardiovascular examination reveals regular rhythm rate. S1-S2 normal. No S3 or S4. No discernible murmur noted. Heart sounds are distant. Heart rate 71 bpm. Lungs reveal scattered rhonchi and crackles. Diminished breath sounds on the right side. No wheezes. Abdomen soft bowel sounds are heard. No masses or tenderness. Extremities are intact. No cyanosis clubbing or edema. Skin is without rash or lesion. Neurologic examination is brief but nonfocal. - Labs CBC & Chem 7: 05/03/21 08:33 05/08/21 09:38 Labs: Abnormal Lab Results - Last 24 Hours (Table) 05/07/21 05/07/21 05/07/21 Range/Units 11:51 16:23 20:16 PT (9.0-12.0) sec INR (<1.2) BUN (7-17) mg/dL Creatinine (0.52-1.04) mg/dL Glucose (74-99) mg/dL POC Glucose (mg/dL) 134 H 136 H 129 H (75-99) mg/dL 05/08/21 05/08/21 05/08/21 Range/Units 06:08 09:38 09:38 PT 15.3 H (9.0-12.0) sec INR 1.5 H (<1.2) BUN 36 H (7-17) mg/dL Creatinine 1.80 H (0.52-1.04) mg/dL Glucose 146 H (74-99) mg/dL POC Glucose (mg/dL) 111 H (75-99) mg/dL 05/08/21 Range/Units 11:31 PT (9.0-12.0) sec INR (<1.2) BUN (7-17) mg/dL Creatinine (0.52-1.04) mg/dL Glucose (74-99) mg/dL POC Glucose (mg/dL) 144 H (75-99) mg/dL Microbiology - Last 24 Hours (Table) 05/06/21 13:00 Acid Fast Bacilli Smear - Final Pleural Fluid Acid Fast Bacilli Culture - Preliminary 05/06/21 13:00 Gram Stain - Preliminary Pleural Fluid Body Fluid Culture - Preliminary Assessment and Plan Assessment: Acute on chronic hypoxemic respiratory failure, secondary to acute exacerbation of systolic CHF. Large right-sided pleural effusion, status post thoracentesis by interventional radiology, on 05/06/2021, and the development of a right-sided pneumothorax. Cardiomyopathy, with an ejection fraction of 20-25%. History of severe mitral regurgitation. Status post AICD placement for cardiomyopathy. History of atrial fibrillation. Diabetes mellitus. Hyperlipidemia. Hypothyroidism. Plan: Plan dated 05/04/2021. The patient's Coumadin is on hold. INR is 1.7. We've asked interventional ra diology to consider ultrasound-guided thoracentesis. Alternatively, the patient could be discharged home, and brought back as an outpatient. Clinically, she looks very stable. Labs, x-rays, medications, and chest ultrasound are all reviewed. Plan dated 05/05/2021. The patient's INR today was 1.8. The patient's Coumadin is currently on hold. We did a interventional radiology to consider ultrasound-guided thoracentesis. Alternatively, the patient could be discharged home, and brought back as an outpatient. Clinically she stable. Probably does not need oxygen therapy. Labs, x-rays, and medications are reviewed. Overall prognosis remains guarded. We will continue to follow and make recommendations on this patient, where appropriate. Plan dated 05/06/2021. The patient should be able to have her ultrasound-guided right-sided thoracentesis today, by interventional radiology. The patient is clinically very stable. Her saturations on room air as well as on oxygen, are excellent. The patient could be considered for possible discharge in the near future. Pulmonary status is otherwise stable. Prognosis is guarded. Plan dated 05/07/2021. The patient's doing well. Currently on room air. She tells me that she was told that she'll be discharged home tomorrow. The pneumothorax on today's chest x-ray, his better. We did order a chest x-ray for tomorrow. Clinically she is doing well. Respiratory status and hemodynamics are stable. We will continue to follow and make recommendations where appropriate. Plan dated 05/08/2021. The patient is being considered for possible discharge today by the primary service. The patient's currently on room air. The pneumothorax on the right side is smaller than it has been. The patient is not manifesting any signs or symptoms of respiratory distress. I told the nurse, to make the patient an appointment to see me in the office next week. At that time we will repeat a chest x-ray. I explained that to the patient. She is in agreement. Time with Patient: Less than 30
[2021-05-08 12:14] VITALS: PULSE 70
--- NOTE | 2021-05-08 12:48 | P.PN ---
Subjective Progress Note Date: 05/08/21 HISTORY OF PRESENT ILLNESS: This is a 86-year-old female with a past medical history significant for nonischemic cardiomyopathy with previous AICD implantation, permanent atrial fibrillation, severe mitral regurgitation, diabetes, congestive heart failure, hyperlipidemia, and hypothyroidism. Patient follows in the office with Dr. Rucker. We have been asked to see the patient in consultation for congestive heart failure. Patient examined at the bedside. Patient presented to the hospital with a chief complaint of shortness of breath. Patient states for the past 2 days she has become increasingly short of breath. She states that she tried wearing her oxygen at home but her shortness of breath did not improve. She denied any chest pain or pressure. Denies any fever or chills. The patient was found to be in acute CHF and was started on IV Lasix. She states her breathing has improved this morning. She is currently wearing a BiPAP at the time of examination. * EKG reveals ventricular paced rhythm * Chest xray congestive heart failure with moderate pleural effusions. There is increasing pulmonary congestion and pleural fluid compared to old exam. * Laboratory data: WBC 8.9. Hemoglobin 15.2. Platelet count 167. D-dimer 0.67. Sodium 140. Potassium 4.6. BUN 36. Creatinine 1.65. Lactic acid 3.0. Repeat 2.0. Troponin negative 3. ProBNP 15,800. * Current home cardiac medications include amiodarone 200 mg daily, metoprolol succinate 100 mg daily, Aldactone 12.5 mg daily, Lasix 40 mg twice a day, simvastatin 20 mg at night, warfarin 1 mg Tuesday and 1.5 mg Tuesday, and Entresto 24-26mg BID. * Most recent echocardiogram obtained in December 2020 revealed ejection fraction 20-25% with severe MR * Cardiac catheterization history: 2007 revealing normal coronary arteries 05/01/2021 Patient examined this point the bedside. Patient denies chest pain or pressure. She continues to report shortness of breath with exertion. She denies shortness of breath at rest. She remains on IV Lasix 40 mg every 8 hours. Creatinine today is increased to 1.90. Repeat proBNP today is 12,900. Chest x- ray reveals persistent cardiomegaly with central vascular congestion along with moderate sized right and tiny left pleural effusions. 05/04/2021 Patient examined this morning at the bedside. Patient denies chest pain or pressure. Patient reports improvement in her shortness of breath. She remains on Coumadin. INR 1.7. She remains on IV lasix. Chest US today reveals large right pleural effusion with tissue within anterior pocket of lung. Creatinine 1.55 today. 05/05/2021 Patient examined this morning. She is sitting up in the chair. She denies chest pain or pressure. She denies any shortness of breath at rest. She continues to report shortness of breath when up and ambulating to the bathroom. She remains on IV Lasix 40 mg every 12 hours. Patient's Coumadin was held yesterday. INR today 1.8. Plan is for right thoracentesis per interventional radiology when INR improves. 05/07/2021 Patient examined this morning at the bedside. She is sitting up in the chair. She denies chest pain or pressure. She denies any shortness of breath. She is status post thoracentesis yesterday with removal of 900cc. She developed a pneumothorax postprocedure. Repeat chest x-ray today reveals improvement in right-sided pneumothorax. 05/08/2021 Patient examined this morning at the bedside. Patient denies chest pain or pressure. Denies SOB. Vital signs are stable. PHYSICAL EXAM: VITAL SIGNS: Reviewed. GENERAL: Well-developed in no acute distress. HEENT: Head is normocephalic. Pupils are equal, round. Sclerae anicteric. Mucous membranes of the mouth are moist. Neck supple. No JVD or thyromegaly LUNGS: Respirations even and unlabored. Lungs clear. Right sided diminished but improved. HEART: Regular rate and rhythm. S1 and S2 heard. Systolic murmur noted. ABDOMEN: Soft. Nondistended. Nontender. EXTREMITIES: Normal range of motion. No clubbing or cyanosis. Peripheral pulses intact. No lower extremity edema NEUROLOGIC: Awake and alert. Oriented x 3. ASSESSMENT: Shortness of breath Acute on chronic congestive heart failure with reduced EF, 20-25% Large right pleural effusion, status post thoracentesis Permanent atrial fibrillation Nonischemic cardiomyopathy with previous AICD implantation Hyperlipidemia Severe mitral regurgitation Acute on Chronic kidney disease Diabetes Hypothyroidism Post procedure pneumothorax PLAN: Continue current cardiac medications Stable for DC home We will sign off. Please reconsult if needed. Nurse practitioner note has been reviewed by physician. Signing provider agrees with the documented findings, assessment, and plan of care. Objective - Vital Signs Vital signs: Vital Signs Temp 97.7 F 05/08/21 08:00 Pulse 70 05/08/21 12:00 Resp 18 05/08/21 08:00 BP 88/50 05/08/21 12:00 Pulse Ox 97 05/08/21 12:00 Intake & Output 05/07/21 05/08/21 05/08/21 18:59 06:59 18:59 Intake Total 480 120 Output Total 900 Balance -420 120 Weight 63.5 kg Intake: Oral 480 120 Output: Urine 900 Other: Voiding Method Toilet Toilet # Voids 1 2 # Bowel Movements 1 - Labs CBC & Chem 7: 05/03/21 08:33 05/08/21 09:38 Labs: Abnormal Lab Results - Last 24 Hours (Table) 05/07/21 05/07/21 05/08/21 Range/Units 16:23 20:16 06:08 PT (9.0-12.0) sec INR (<1.2) BUN (7-17) mg/dL Creatinine (0.52-1.04) mg/dL Glucose (74-99) mg/dL POC Glucose (mg/dL) 136 H 129 H 111 H (75-99) mg/dL 05/08/21 05/08/21 05/08/21 Range/Units 09:38 09:38 11:31 PT 15.3 H (9.0-12.0) sec INR 1.5 H (<1.2) BUN 36 H (7-17) mg/dL Creatinine 1.80 H (0.52-1.04) mg/dL Glucose 146 H (74-99) mg/dL POC Glucose (mg/dL) 144 H (75-99) mg/dL Microbiology - Last 24 Hours (Table) 05/06/21 13:00 Acid Fast Bacilli Smear - Final Pleural Fluid Acid Fast Bacilli Culture - Preliminary 05/06/21 13:00 Gram Stain - Preliminary Pleural Fluid Body Fluid Culture - Preliminary
[2021-05-08 12:59] VITALS: BP 92/58
[2021-05-08] MEDS ORDERED: WARFARIN 2 MG TAB PO ONE (18:00)
== END 2021-05-08 14:42 | disposition home or self-care (01) | DRG 291 ==
LOC: EC 22:08 → 3SCARD 04-30 01:08
PROVIDERS: ADMIT Internal Medicine Geriatric Medicine; ATTEND Internal Medicine Geriatric Medicine
PROC: 0W993ZZ Drainage of Right Pleural Cavity, Percutaneous Approach (ICD-10-PCS; principal; 2021-05-06)
DX: I50.23 Acute on chronic systolic (congestive) heart failure (principal); J96.21 Acute and chronic respiratory failure with hypoxia; N18.4 Chronic kidney disease, stage 4 (severe); I42.8 Other cardiomyopathies; I48.21 Permanent atrial fibrillation; J91.8 Pleural effusion in other conditions classified elsewhere; J95.811 Postprocedural pneumothorax; E03.9 Hypothyroidism, unspecified; E11.22 Type 2 diabetes mellitus with diabetic chronic kidney disease; E78.5 Hyperlipidemia, unspecified; I34.0 Nonrheumatic mitral (valve) insufficiency; Z51.5 Encounter for palliative care; Z66 Do not resuscitate; Z79.01 Long term (current) use of anticoagulants; Z79.84 Long term (current) use of oral hypoglycemic drugs; Z79.890 Hormone replacement therapy; Z79.899 Other long term (current) drug therapy; Z80.8 Family history of malignant neoplasm of other organs or systems; Z85.828 Personal history of other malignant neoplasm of skin; Z90.710 Acquired absence of both cervix and uterus; Z95.810 Presence of automatic (implantable) cardiac defibrillator
CPT/HCPCS: 32555; 36415; 71045; 71046; 76604; 80048; 80053; 81001; 82945; 83605; 83615; 83735; 83880; 84157; 84443; 84484; 85025; 85027; 85379; 85610; 85730; 87070; 87075; 87102; 87116; 87205; 87206; 87252; 87324; 87496; 87498; 87502; 87529; 87634; 87798; 88108; 88305; 89050; 93005; 94660; 94760; 96374; 99285

== ENCOUNTER 2021-05-21 16:36 | Inpatient (IN) | payer MEDICARE, BC ==
--- NOTE | 2021-05-21 18:34 | ED ---
SOB HPI - General Chief Complaint: Shortness of Breath Stated Complaint: SOB Time Seen by Provider: 05/21/21 18:04 Source: patient, RN notes reviewed Mode of arrival: wheelchair Limitations: no limitations - History of Present Illness Initial Comments: This is a pleasant 78-year-old female presents to the emergency department complaining of shortness of breath. Patient had a recent admission where she had a right-sided pleural effusion which was drained. Patient was found to have congestive heart failure. After drainage apparently the patient had a pneumothorax. Patient was eventually sent home. Patient does have a history of heart failure and diabetes as well. Patient also has valvular heart disease. Recent states that over the past 2 days she started having increased difficulty breathing. Much worse last night. Patient could not lay down. Patient has shortness of breath at rest and started having to wear her oxygen at all times. Patient states whenever stakes actually resolved and she feels like she cannot breathe. Patient called her heart failure clinical staff rn was instructed come to the emergency department. She denies pain. No significant edema. No headache, no fever or chills, no changes in vision or hearing, no sore throat or difficulty with speech, no neck pain, no chest pain no abdominal pain, no nausea or vomiting, no changes in urination or bowel movements, no numbness or tingling, no extremity pain, no skin rashes or lesions. MD Complaint: shortness of breath - Related Data Home Medications Medication Instructions Recorded Confirmed Magnesium Chloride [Mag64] 64 mg PO DAILY@69910/22/15 04/29/21 Simvastatin [Zocor] 20 mg PO HS@209910/22/15 04/29/21 Amiodarone [Cordarone] 200 mg PO DAILY@89911/24/15 04/29/21 Levothyroxine Sodium [Synthroid] 25 mcg PO DAILY@69903/30/18 04/29/21 Warfarin [Coumadin] 1 mg PO SUTUTHSA@209903/30/18 04/29/21 Warfarin [Coumadin] 1.5 mg PO MOWEFR@209903/30/18 04/29/21 calcium polycarbophiL [Fibercon] 625 mg PO DAILY PRN 11/19/18 04/29/21 Cetirizine HCl 10 mg PO DAILY PRN 11/21/20 04/29/21 Metoprolol Succinate [Toprol XL] 100 mg PO DAILY@0900 11/21/20 04/29/21 glipiZIDE [Glucotrol] 5 mg PO BID@899,209911/21/20 04/29/21 Loperamide [Imodium] 2 mg PO BID@0900,209904/29/21 04/29/21 Triamcinolone 0.1% Ointment 1 applic TOPICAL DAILY@89904/29/21 04/29/21 [Kenalog 0.1% Ointment] Previous Rx's Medication Instructions Recorded Furosemide [Lasix] 40 mg PO DAILY #60 tab 05/08/21 Sacubitril/Valsartan [Entresto 24 0.5 tab PO BID@899,2099 #0 05/08/21 mg-26 mg Tablet] Allergies Allergy/AdvReac Type Severity Reaction Status Date / Time quinidine Allergy Rash/Hives Verified 05/21/21 16:43 CLEAR PLASTIC TAPE Allergy Rash/Hives Uncoded 05/21/21 16:43 Review of Systems ROS Statement: Those systems with pertinent positive or pertinent negative responses have been documented in the HPI. ROS Other: All systems not noted in ROS Statement are negative. Past Medical History Past Medical History: Cancer, Heart Failure, Diabetes Mellitus, Hyperlipidemia, Osteoarthritis (OA), Skin Disorder, Vascular Disorder Additional Past Medical History / Comment(s): basal cell skin cancer, rash on face, History of Any Multi-Drug Resistant Organisms: None Reported Past Surgical History: AICD, Appendectomy, Bladder Surgery, Bowel Resection, Cholecystectomy, Heart Catheterization, Hysterectomy, Tonsillectomy, Tubal Ligation Additional Past Surgical History / Comment(s): venogram/fluoroscopy, neema cataracts, Past Anesthesia/Blood Transfusion Reactions: No Reported Reaction Type of Cardiac Device: AICD Device Placement Date:: 2007 Past Psychological History: No Psychological Hx Reported Smoking Status: Never smoker Past Alcohol Use History: None Reported Past Drug Use History: None Reported - Past Family History Father Family Medical History: Cancer Mother Family Medical History: Cancer Sister(s) Family Medical History: Cancer, Deep Vein Thrombosis (DVT) Additional Family Medical History / Comment(s): skin cancer Brother(s) History Unknown: Yes Family Medical History: Cancer Additional Family Medical History / Comment(s): skin cancer General Exam - General Exam Comments Initial Comments: Mild distress and increased work of breathing noted. Patient does not appear to be ill or toxic. Limitations: no limitations General appearance: alert, in distress Head exam: Present: atraumatic, normocephalic, normal inspection Eye exam: Present: normal appearance, PERRL, EOMI. Absent: scleral icterus, conjunctival injection, periorbital swelling ENT exam: Present: normal exam, mucous membranes moist Neck exam: Present: normal inspection, full ROM. Absent: tenderness, meningismus, lymphadenopathy Respiratory exam: Present: normal lung sounds bilaterally, rales (Bibasilar rales noted.), accessory muscle use. Absent: respiratory distress, wheezes, rhonchi, stridor, chest wall tenderness Cardiovascular Exam: Present: regular rate, normal rhythm, normal heart sounds. Absent: systolic murmur, diastolic murmur, rubs, gallop, clicks GI/Abdominal exam: Present: soft, normal bowel sounds. Absent: distended, tenderness, guarding, rebound, rigid Extremities exam: Present: normal inspection, full ROM, normal capillary refill, other (No significant edema). Absent: tenderness, pedal edema, joint swelling, calf tenderness Back exam: Present: normal inspection Neurological exam: Present: alert, oriented X3, CN II-XII intact Psychiatric exam: Present: normal affect, normal mood Skin exam: Present: warm, dry, intact, normal color. Absent: rash Course Vital Signs 05/21/21 05/21/21 16:40 20:06 Temperature 97.9 F Pulse Rate 70 66 Respiratory 20 19 Rate Blood Pressure 104/65 105/65 O2 Sat by Pulse 96 98 Oximetry - Reevaluation(s) Reevaluation #1: 05/21/21 20:43 Reevaluated Patient sent drowsy essentially unchanged. Neurologically intact. - Consultations Consultation #1: Case discussed in detail with the patient's primary care physician who accepts admission. Consult to cardiology and pulmonary. Medical Decision Making - Medical Decision Making Increased work of breathing, bibasilar rales. Cardiopulmonary evaluation to assess for recurrent effusion, congestive heart failure, other cardiopulmonary etiologies possible as well. Patient admitted for recurrent and worsening right pleural effusion. We'll keep the patient clear liquids in case there is a procedure to be done tomorrow. Case was discussed with the primary care physician who accepted admission. The case was discussed in detail with ED attending physician. Presentation, findings, treatment plan discussed in detail. - Lab Data Result diagrams: 05/21/21 18:57 05/21/21 18:57 Lab Results 05/21/21 05/21/21 05/21/21 Range/Units 18:54 18:57 18:57 WBC 7.5 (3.8-10.6) k/uL RBC 4.81 (3.80-5.40) m/uL Hgb 15.0 (11.4-16.0) gm/dL Hct 45.9 (34.0-46.0) % MCV 95.5 (80.0-100.0) fL MCH 31.2 (25.0-35.0) pg MCHC 32.7 (31.0-37.0) g/dL RDW 14.5 (11.5-15.5) % Plt Count 164 (150-450) k/uL MPV 8.7 Neutrophils % 66 % Lymphocytes % 22 % Monocytes % 5 % Eosinophils % 4 % Basophils % 2 % Neutrophils # 4.9 (1.3-7.7) k/uL Lymphocytes # 1.6 (1.0-4.8) k/uL Monocytes # 0.4 (0-1.0) k/uL Eosinophils # 0.3 (0-0.7) k/uL Basophils # 0.2 (0-0.2) k/uL PT 16.8 H (9.0-12.0) sec INR 1.7 H (<1.2) APTT 28.3 (22.0-30.0) sec Sodium (137-145) mmol/L Potassium (3.5-5.1) mmol/L Chloride (98-107) mmol/L Carbon Dioxide (22-30) mmol/L Anion Gap mmol/L BUN (7-17) mg/dL Creatinine (0.52-1.04) mg/dL Est GFR (CKD-EPI)AfAm (>60 ml/min/1.73 sqM) Est GFR (CKD-EPI)NonAf (>60 ml/min/1.73 sqM) Glucose (74-99) mg/dL POC Glucose (mg/dL) 112 H (75-99) mg/dL POC Glu Manager [facility] Lisa Ledbetter Calcium (8.4-10.2) mg/dL Total Bilirubin (0.2-1.3) mg/dL AST (14-36) U/L ALT (4-34) U/L Alkaline Phosphatase (38-126) U/L Troponin I (0.000-0.034) ng/mL NT-Pro-B Natriuret Pep pg/mL Total Protein (6.3-8.2) g/dL Albumin (3.5-5.0) g/dL Coronavirus (PCR) (Not Detectd) Influenza Type A RNA (Not Detectd) Influenza Type B (PCR) (Not Detectd) 05/21/21 05/21/21 05/21/21 Range/Units 18:57 18:57 18:57 WBC (3.8-10.6) k/uL RBC (3.80-5.40) m/uL Hgb (11.4-16.0) gm/dL Hct (34.0-46.0) % MCV (80.0-100.0) fL MCH (25.0-35.0) pg MCHC (31.0-37.0) g/dL RDW (11.5-15.5) % Plt Count (150-450) k/uL MPV Neutrophils % % Lymphocytes % % Monocytes % % Eosinophils % % Basophils % % Neutrophils # (1.3-7.7) k/uL Lymphocytes # (1.0-4.8) k/uL Monocytes # (0-1.0) k/uL Eosinophils # (0-0.7) k/uL Basophils # (0-0.2) k/uL PT (9.0-12.0) sec INR (<1.2) APTT (22.0-30.0) sec Sodium 139 (137-145) mmol/L Potassium 3.9 (3.5-5.1) mmol/L Chloride 102 (98-107) mmol/L Carbon Dioxide 31 H (22-30) mmol/L Anion Gap 6 mmol/L BUN 34 H (7-17) mg/dL Creatinine 1.62 H (0.52-1.04) mg/dL Est GFR (CKD-EPI)AfAm 33 (>60 ml/min/1.73 sqM) Est GFR (CKD-EPI)NonAf 28 (>60 ml/min/1.73 sqM) Glucose 130 H (74-99) mg/dL POC Glucose (mg/dL) (75-99) mg/dL POC Glu Manager [facility] ID Calcium 9.0 (8.4-10.2) mg/dL Total Bilirubin 1.1 (0.2-1.3) mg/dL AST 41 H (14-36) U/L ALT 28 (4-34) U/L Alkaline Phosphatase 65 (38-126) U/L Troponin I <0.012 (0.000-0.034) ng/mL NT-Pro-B Natriuret Pep 40051 pg/mL Total Protein 6.9 (6.3-8.2) g/dL Albumin 4.0 (3.5-5.0) g/dL Coronavirus (PCR) (Not Detectd) Influenza Type A RNA (Not Detectd) Influenza Type B (PCR) (Not Detectd) 05/21/21 05/21/21 Range/Units 18:57 18:57 WBC (3.8-10.6) k/uL RBC (3.80-5.40) m/uL Hgb (11.4-16.0) gm/dL Hct (34.0-46.0) % MCV (80.0-100.0) fL MCH (25.0-35.0) pg MCHC (31.0-37.0) g/dL RDW (11.5-15.5) % Plt Count (150-450) k/uL MPV Neutrophils % % Lymphocytes % % Monocytes % % Eosinophils % % Basophils % % Neutrophils # (1.3-7.7) k/uL Lymphocytes # (1.0-4.8) k/uL Monocytes # (0-1.0) k/uL Eosinophils # (0-0.7) k/uL Basophils # (0-0.2) k/uL PT (9.0-12.0) sec INR (<1.2) APTT (22.0-30.0) sec Sodium (137-145) mmol/L Potassium (3.5-5.1) mmol/L Chloride (98-107) mmol/L Carbon Dioxide (22-30) mmol/L Anion Gap mmol/L BUN (7-17) mg/dL Creatinine (0.52-1.04) mg/dL Est GFR (CKD-EPI)AfAm (>60 ml/min/1.73 sqM) Est GFR (CKD-EPI)NonAf (>60 ml/min/1.73 sqM) Glucose (74-99) mg/dL POC Glucose (mg/dL) (75-99) mg/dL POC Glu Manager Hospital ID Calcium (8.4-10.2) mg/dL Total Bilirubin (0.2-1.3) mg/dL AST (14-36) U/L ALT (4-34) U/L Alkaline Phosphatase (38-126) U/L Troponin I (0.000-0.034) ng/mL NT-Pro-B Natriuret Pep pg/mL Total Protein (6.3-8.2) g/dL Albumin (3.5-5.0) g/dL Coronavirus (PCR) Not Detected (Not Detectd) Influenza Type A RNA Not Detected (Not Detectd) Influenza Type B (PCR) Not Detected (Not Detectd) - EKG Data EKG Comments: EKG done at 1841 and read by the ED attending physician reveals electronic ventricular pacemaker with a rate of 69. No evidence of acute changes. Right axis deviation. - Radiology Data Radiology results: report reviewed, image reviewed Disposition Clinical Impression: Recurrent right pleural effusion, Dyspnea Disposition: ADMITTED IP TO THIS [facility] Condition: Fair Referrals: Alberto Solomon MD [Primary Care Provider] - 1-2 days Time of Disposition: 20:15 Decision to Admit Reason: Admit from EC Decision Time: 20:15
[2021-05-21 18:55] LABS: Glucose,Whole Blood 112 mg/dL (75-99)
[2021-05-21 19:09] LABS: Basophils # (A) 0.2 k/uL (0-0.2); Basophils % (A) 2 %; Eosinophils # (A) 0.3 k/uL (0-0.7); Eosinophils % (A) 4 %; HCT 45.9 % (34.0-46.0); Lymphocytes # (A) 1.6 k/uL (1.0-4.8); Lymphocytes % (A) 22 %; MCH 31.2 pg (25.0-35.0); MCHC 32.7 g/dL (31.0-37.0); MCV 95.5 fL (80.0-100.0); Mean Platelet Volume 8.7; Monocytes # (A) 0.4 k/uL (0-1.0); Monocytes % (A) 5 %; Neutrophils # (A) 4.9 k/uL (1.3-7.7); Neutrophils % (A) 66 %; Platelet Count 164 k/uL (150-450); RBC 4.81 m/uL (3.80-5.40); RDW 14.5 % (11.5-15.5); WBC 7.5 k/uL (3.8-10.6)
[2021-05-21 19:19] LABS: INR 1.7 (<1.2); Partial Thromboplastin Time 28.3 sec (22.0-30.0); Prothrombin Time 16.8 sec (9.0-12.0)
[2021-05-21 19:20] LABS: Potassium 3.9 mmol/L (3.5-5.1); Total Bilirubin 1.1 mg/dL (0.2-1.3); Total Protein 6.9 g/dL (6.3-8.2)
--- NOTE | 2021-05-21 19:42 | XR ---
EXAMINATION TYPE: XR chest 2V DATE OF EXAM: 05/21/2021 7:09 PM COMPARISON:Chest radiographs from 05/08/2021 TECHNIQUE: XR chest 2V Frontal and lateral views of the chest. CLINICAL INDICATION:Female, 86 years old with history of difficulty breathing; FINDINGS: Lungs/Pleura: Increase in right pleural effusion now moderate to large in size. No evidence of pneumo thorax or left pleural effusion. Pulmonary vascularity: Unremarkable. Heart/mediastinum: Cardiomediastinal silhouette is unremarkable. Single-lead cardiac conduction devic e overlying the left hemithorax with lead projecting over the heart. Musculoskeletal: No acute osseous pathology. IMPRESSION: Interval increase in right pleural effusion now moderate to large in size.
[2021-05-21] MEDS ORDERED: ACETAMINOPHEN TAB 325 MG TAB PO PRN (20:39)
[2021-05-21] MEDS ORDERED: ONDANSETRON 4 MG/2 ML VIAL IVP PRN (20:39)
[2021-05-21] MEDS ORDERED: NALOXONE 0.4 MG/ML 1 ML VIAL IV PRN (20:39)
[2021-05-21] MEDS ORDERED: ATORVASTATIN 20 MG TAB PO STA (21:22)
[2021-05-21] MEDS ORDERED: LOPERAMIDE 2 MG CAP PO PRN (21:22)
[2021-05-21] MEDS: INSULIN ASPART (NovoLOG) 100 UNIT/ML VIAL SQ SCH (21:24)
[2021-05-21] MEDS ORDERED: SACUBITRIL/VALSARTAN 24 MG-26 MG TABLET PO ONE (21:30)
[2021-05-21] MEDS ORDERED: WARFARIN 1.5 MG TAB PO ONE (21:45)
[2021-05-21 22:29] LABS: Glucose,Whole Blood 143 mg/dL (75-99)
[2021-05-22 03:30] LABS: Glucose,Whole Blood 144 mg/dL (75-99)
[2021-05-22 05:13] LABS: INR 1.7 (<1.2); Prothrombin Time 17.6 sec (9.0-12.0)
[2021-05-22 06:59] LABS: Glucose,Whole Blood 97 mg/dL (75-99)
[2021-05-22] MEDS: INSULIN ASPART (NovoLOG) 100 UNIT/ML VIAL SQ SCH ×4 (08:06→22:39)
--- NOTE | 2021-05-22 08:08 | US ---
EXAMINATION TYPE: US chest DATE OF EXAM: 05/22/2021 COMPARISON: Chest x-ray from yesterday CLINICAL HISTORY: Markings for thoracentesis by pulmonary staff. Pleural effusion TECHNIQUE: Targeted ultrasound of the posterior lower bilateral hemithoraces EXAM MEASUREMENTS: Right Pleural Effusion pocket size: 12.7 cm Right skin surface to fluid distance: 2.6 cm Left Pleural Effusion pocket size: 0 cm Right side marked for possible thoracentesis outside the dept. Left side NOT marked for possible thoracentesis outside the dept. Pulmonologists are able to review the images in the patient?s EMR. Moderate-sized right pleural effusion corresponds with x-ray one day earlier. No significant left-ana maria ed pleural effusion. IMPRESSIONS: As above.
[2021-05-22] MEDS: METOPROLOL SUCCINATE (ER) 50 MG TAB.ER.24H PO SCH (08:33)
[2021-05-22] MEDS: LOPERAMIDE 2 MG CAP PO SCH ×2 (08:34→23:03)
[2021-05-22] MEDS: FUROSEMIDE 40 MG TAB PO SCH ×2 (08:34→17:25)
[2021-05-22] MEDS: glipiZIDE 5 MG TAB PO SCH ×2 (08:34→23:03)
[2021-05-22] MEDS: SACUBITRIL/VALSARTAN 24 MG-26 MG TABLET PO SCH ×2 (08:34→23:03)
[2021-05-22] MEDS: AMIODARONE 200 MG TAB PO SCH (08:34)
[2021-05-22] MEDS: SPIRONOLACTONE 25 MG TAB PO SCH (08:34)
[2021-05-22] MEDS: LEVOTHYROXINE 25 MCG TAB PO SCH (08:34)
[2021-05-22] MEDS: MAGNESIUM CHLORIDE 64 MG PO SCH (08:35)
[2021-05-22] MEDS ORDERED: LORATADINE 10 MG TAB PO PRN (09:00)
--- NOTE | 2021-05-22 09:18 | P.CRDCN ---
History of Present Illness Consult date: 05/22/21 History of present illness: History of Present Illness: The patient is an 86-year-old female with known history of severe mitral regurgitation, recurrent CHF, severe nonischemic cardiomyopathy, ICD implantation and atrial fibrillation who presents with worsening dyspnea. She had a known ejection fraction of 20-25% and was in the hospital recently with similar findings at that time had evidence of CHF and significant pleural effusion. She underwent thoracentesis with improvement in her breathing but presents again with worsening dyspnea, acute onset with no chest discomfort, dizziness or palpitations. She is fatigued. She has no significant peripheral edema. After her last thoracentesis she had a pneumothorax that resolved. On presentation her NT proBNP was elevated. She is in atrial fibrillation with 100% ventricular pacing. She has no symptoms to suggest angina pectoris. Her coronary risk factors are positive for diabetes, she is a nonsmoker, she is hyperlipidemic. Her medication include Aldactone 25 mg daily, Coumadin, Zocor 20 mg daily, Gluco trol, metoprolol succinate 100 mg daily, Synthroid, Lasix 40 mg twice a day, Cordarone 200 mg daily in addition to Entresto 2426 milligrams twice a day Review of Systems: Respiratory: She has symptoms of progressive dyspnea and recurrent pleural effusion GI: [She had nausea and vomiting today. No history of peptic ulcer disease. No recent GI bleed.] : [No hematuria or dysuria.] Nervous System: [No stroke or seizure.] Physical Examination: She is an 86-year-old female, alert and oriented no apparent distress, blood pressure 113/70 with a heart rate in the 70s Head: [Normocephalic.] Eyes: [Sclerae nonicteric.] Neck: [Good carotid upstroke, no bruit, jugular venous distention noted.] Lungs: [Decreased breath sounds with dullness at the bases.] Heart: [Regular rate and rhythm, S1-S2, no S3, no rub. Holosystolic murmur at the apex, 3/6.] Abdomen: [Soft nontender, positive bowel sounds no organomegaly.] Extremities: [Trace to 1+ edema, intact distal pulses.] Labs: INR 1.5, BUN 34, creatinine 1.62. Troponin less than 0.012. NT proBNP 10,800, hemoglobin 15. EKG with atrial fibrillation and 100% ventricular pacing. Chest x-ray with large pleural effusion on the right side Impression: 1. Progressive dyspnea with evidence of CHF with right-sided failure and pleural effusion, recurrent in a patient with known history of severe nonischemic cardiomyopathy and severe mitral regurgitation 2. Severe mitral regurgitation 3. Severe nonischemic cardiomyopathy, post ICD pacemaker implantation 4. Chronic persistent atrial fibrillation, anticoagulated 5. Diabetes mellitus 6. Hyperlipidemia Plan: 1. Continue IV diuretics 2. Thoracentesis 3. If patient has recurrent effusion she may require a chest tube and pleurodesis 4. Patient can be evaluated for possible mitral valve clip as an outpatient if she is a candidate 5. Prognosis is guarded 6. Thank you for this consult we will follow with you. Past Medical History Past Medical History: Cancer, Heart Failure, Diabetes Mellitus, Hyperlipidemia, Osteoarthritis (OA), Skin Disorder, Vascular Disorder Additional Past Medical History / Comment(s): basal cell skin cancer, rash on face, History of Any Multi-Drug Resistant Organisms: None Reported Past Surgical History: AICD, Appendectomy, Bladder Surgery, Bowel Resection, Cholecystectomy, Heart Catheterization, Hysterectomy, Tonsillectomy, Tubal Liga tion Additional Past Surgical History / Comment(s): venogram/fluoroscopy, neema cataracts, Past Anesthesia/Blood Transfusion Reactions: No Reported Reaction Type of Cardiac Device: AICD Device Placement Date:: 2007 Past Psychological History: No Psychological Hx Reported Smoking Status: Never smoker Past Alcohol Use History: None Reported Past Drug Use History: None Reported - Past Family History Father Family Medical History: Cancer Mother Family Medical History: Cancer Sister(s) Family Medical History: Cancer, Deep Vein Thrombosis (DVT) Additional Family Medical History / Comment(s): skin cancer Brother(s) History Unknown: Yes Family Medical History: Cancer Additional Family Medical History / Comment(s): skin cancer Medications and Allergies Home Medications Medication Instructions Recorded Confirmed Type Magnesium Chloride [Mag64] 64 mg PO DAILY@0700 10/22/15 05/21/21 History Simvastatin [Zocor] 20 mg PO HS@2100 10/22/15 05/21/21 History Amiodarone [Cordarone] 200 mg PO DAILY@0900 11/24/15 05/21/21 History Levothyroxine Sodium [Synthroid] 25 mcg PO DAILY@0700 03/30/18 05/21/21 History Warfarin [Coumadin] 1 mg PO SUTUTH@209903/30/18 05/21/21 History Warfarin [Coumadin] 1.5 mg PO MOWEFRSA@209903/30/18 05/21/21 History calcium polycarbophiL [Fibercon] 625 mg PO DAILY PRN 11/19/18 05/21/21 History Cetirizine HCl 10 mg PO DAILY PRN 11/21/20 05/21/21 History Metoprolol Succinate [Toprol XL] 100 mg PO DAILY@0900 11/21/20 05/21/21 History glipiZIDE [Glucotrol] 5 mg PO BID@0900,2100 11/21/20 05/21/21 History Loperamide [Imodium] 2 mg PO BID@0900,2100 04/29/21 05/21/21 History Triamcinolone 0.1% Ointment 1 applic TOPICAL DAILY@0900 04/29/21 05/21/21 History [Kenalog 0.1% Ointment] Furosemide [Lasix] 40 mg PO BID@0900,1600 05/21/21 05/21/21 History Sacubitril/Valsartan [Entresto 24 1 tab PO BID@0900,2100 05/21/21 05/21/21 History mg-26 mg Tablet] Spironolactone [Aldactone] 25 mg PO DAILY@0900 05/21/21 05/21/21 History Allergies Allergy/AdvReac Type Severity Reaction Status Date / Time quinidine Allergy Rash/Hives Verified 05/21/21 21:03 CLEAR PLASTIC TAPE Allergy Rash/Hives Uncoded 05/21/21 16:43 Physical Exam Vitals: Vital Signs Temp Pulse Pulse Resp BP BP Pulse Ox 05/22/21 07:14 98.6 F 70 17 91/55 96 05/22/21 02:00 98.0 F 70 18 96/58 97 05/21/21 22:10 98.0 F 70 18 113/70 96 05/21/21 20:06 66 19 105/65 98 05/21/21 16:40 97.9 F 70 20 104/65 96 Intake and Output 05/21/21 05/22/21 05/22/21 22:59 06:59 14:59 Other: # Voids 2 Weight 67.585 kg Results 05/21/21 18:57 05/21/21 18:57 Cardiac Enzymes 05/21/21 05/21/21 Range/Units 18:57 18:57 AST 41 H (14-36) U/L Troponin I <0.012 (0.000-0.034) ng/mL Coagulation 05/21/21 05/22/21 Range/Units 18:57 04:41 PT 16.8 H 17.6 H (9.0-12.0) sec APTT 28.3 (22.0-30.0) sec CBC 05/21/21 Range/Units 18:57 WBC 7.5 (3.8-10.6) k/uL RBC 4.81 (3.80-5.40) m/uL Hgb 15.0 (11.4-16.0) gm/dL Hct 45.9 (34.0-46.0) % Plt Count 164 (150-450) k/uL Comprehensive Metabolic Panel 05/21/21 Range/Units 18:57 Sodium 139 (137-145) mmol/L Potassium 3.9 (3.5-5.1) mmol/L Chloride 102 (98-107) mmol/L Carbon Dioxide 31 H (22-30) mmol/L BUN 34 H (7-17) mg/dL Creatinine 1.62 H (0.52-1.04) mg/dL Glucose 130 H (74-99) mg/dL Calcium 9.0 (8.4-10.2) mg/dL AST 41 H (14-36) U/L ALT 28 (4-34) U/L Alkaline Phosphatase 65 (38-126) U/L Total Protein 6.9 (6.3-8.2) g/dL Albumin 4.0 (3.5-5.0) g/dL Current Medications Generic Name Dose Route Start Last Admin Trade Name Freq PRN Reason Stop Dose Admin Acetaminophen 650 mg 05/21/21 20:39 Acetaminophen Tab 325 Mg Tab PO Q6HR PRN Mild Pain or Fever > 100.5 Amiodarone HCl 200 mg 05/22/21 09:00 05/22/21 08:34 Amiodarone 200 Mg Tab PO 200 mg DAILY@0900 [facility] Administration Atorvastatin Calcium 10 mg 05/22/21 21:00 Atorvastatin 10 Mg Tab PO HS@2100 [facility] Calcium Polycarbophil 625 mg 05/22/21 09:00 Calcium Polycarbophil 625 Mg Tab PO DAILY PRN Constipation Furosemide 40 mg 05/22/21 09:00 05/22/21 08:34 Furosemide 40 Mg Tab PO 40 mg BID@0900,1600 [facility] Administration Glipizide 5 mg 05/22/21 09:00 05/22/21 08:34 Glipizide 5 Mg Tab PO 5 mg BID@0900,2100 [facility] Administration Insulin Aspart 0 unit 05/21/21 21:00 05/22/21 08:06 Insulin Aspart (Novolog) 100 Unit/Ml Vial SQ Not Given ACHS [facility] Protocol Levothyroxine Sodium 25 mcg 05/22/21 07:00 05/22/21 08:34 Levothyroxine 25 Mcg Tab PO 25 mcg DAILY@0700 [facility] Administration Loperamide HCl 2 mg 05/21/21 21:22 Loperamide 2 Mg Cap PO 05/31/21 21:23 ONCE PRN Diarrhea Loperamide HCl 2 mg 05/22/21 09:00 05/22/21 08:34 Loperamide 2 Mg Cap PO 2 mg BID@0900,2099 [facility] Administration Loratadine 10 mg 05/22/21 09:00 Loratadine 10 Mg Tab PO DAILY PRN Allergy Symptoms Metoprolol Succinate 100 mg 05/22/21 09:00 05/22/21 08:33 Metoprolol Succinate (Er) 50 Mg Tab.Er.24h PO 100 mg DAILY@0900 [facility] Administration Naloxone HCl 0.2 mg 05/21/21 20:39 Naloxone 0.4 Mg/Ml 1 Ml Vial IV Q2M PRN Opioid Reversal Non-Formulary Medication 64 mg 05/22/21 07:00 05/22/21 08:35 Magnesium Chloride [Mag64] PO Not Given DAILY@0700 [facility] Ondansetron HCl 4 mg 05/21/21 20:39 Ondansetron 4 Mg/2 Ml Vial IVP Q8HR PRN Nausea And Vomiting Sacubitril/Valsartan 1 each 05/22/21 09:00 05/22/21 08:34 Sacubitril/Valsartan 24 Mg-26 Mg Tablet PO 1 each BID@0900,2100 [facility] Administration Spironolactone 25 mg 05/22/21 09:00 05/22/21 08:34 Spironolactone 25 Mg Tab PO 25 mg DAILY@0900 [facility] Administration Intake and Output 05/21/21 05/22/21 05/22/21 22:59 06:59 14:59 Other: # Voids 2 Weight 67.585 kg 05/21/21 18:57 05/21/21 18:57
--- NOTE | 2021-05-22 09:49 | XR ---
EXAMINATION TYPE: XR chest 1V portable DATE OF EXAM: 05/22/2021 CLINICAL HISTORY: Right-sided thoracentesis. TECHNIQUE: Single AP portable upright view of the chest is obtained. COMPARISON: Chest x-ray from one day earlier and older studies. FINDINGS: Improved right-sided pleural effusion after thoracentesis. No pneumothorax is seen. Persis tent bibasilar opacities. Persistent cardiomegaly with dual lead pacemaker/defibrillator. Osseous str uctures are intact. IMPRESSION: Improved right-sided pleural effusion after thoracentesis. No pneumothorax is evident.
[2021-05-22 10:21] LABS: Total Protein 6.3 g/dL (6.3-8.2)
--- NOTE | 2021-05-22 11:11 | P.CNPUL ---
History of Present Illness Consult date: 05/22/21 Requesting physician: Alberto Solomon Reason for consult: dyspnea, pleural effusion, abnormal CXR/CT Chief complaint: Shortness of breath History of present illness: This is a very pleasant 86-year-old female patient with a known history of congestive heart failure and home oxygen, atrial fibrillation anticoagulated with warfarin, hypothyroidism, diabetes mellitus, hyperlipidemia, AICD placement. She was recently admitted for an acute exacerbation of systolic congestive heart failure with bilateral pleural effusions right greater than left. Her ejection fraction is 20-25%. During that admission on 05/06/2021 she had undergone a right-sided thoracentesis that was negative for malignancy. 900 ML's of fluid was removed at that time. She did have a small right-sided pneumothorax that improved and no intervention was required. She was discharged home on 05/08/2021. She did see Dr. Harry in the interim in the office. There is still some remaining pleural effusions but not significant enough for a repeat thoracentesis. She presented to the emergency room here again yesterday 05/21/2021 with recurrent shortness of breath. Chest x-ray did reveal interval increase in the right pleural effusion now moderate to large in size. Ultrasound of the right chest revealed a pocket of 12.7 cm. We're consulted for the same. She is seen today on the regular medical floor. Currently sitting up in bed. Awake and alert in no acute distress. He is maintaining O2 saturations in the 90s on 2 L/m per nasal cannula. Afebrile. White count 7.5. Hemoglobin 15.0. Platelet count 164. INR 1.7. Sodium 1:30. Potassium 3.9. BUN 34. Creatinine 1.62. Glucose 1:30. Troponin negative times one. ProBNP 10,800. Urias virus by PCR not detected. Influenza A/B not detected. She had been initiated on Lasix 40 mg by mouth twice a day which is her home dose. She is also on Aldactone. Review of Systems REVIEW OF SYSTEMS: CONSTITUTIONAL: Denies any recent significant weight loss or weight gain. EYES: Denies change in vision. EARS, NOSE, MOUTH, THROAT: Denies headaches, denies sore throat. CARDIOVASCULAR: Denies chest pain, palpitations or syncopal episodes. RESPIRATORY: Positive for shortness of breath, no cough, congestion or hemoptysis. GASTROINTESTINAL: Denies change in appetite, denies abdominal pain GENITOURINARY: Denies hematuria, denies infections. MUSKULOSKELETAL: Denies pain, denies swelling. INTEGUMENTARY: Denies rash, denies eczema. NEUROLOGICAL: Denies recent memory loss, no recent seizure activity. PSYCHIATRIC: Denies anxiety, denies depression. HEMATOLOGIC/LYMPHATIC: Denies anemia, denies enlarged lymph nodes. Past Medical History Past Medical History: Cancer, Heart Failure, Diabetes Mellitus, Hyperlipidemia, Osteoarthritis (OA), Skin Disorder, Vascular Disorder Additional Past Medical History / Comment(s): basal cell skin cancer, rash on face, History of Any Multi-Drug Resistant Organisms: None Reported Past Surgical History: AICD, Appendectomy, Bladder Surgery, Bowel Resection, Cholecystectomy, Heart Catheterization, Hysterectomy, Tonsillectomy, Tubal Ligation Additional Past Surgical History / Comment(s): venogram/fluoroscopy, neema cataracts, Past Anesthesia/Blood Transfusion Reactions: No Reported Reaction Type of Cardiac Device: AICD Device Placement Date:: 2007 Past Psychological History: No Psychological Hx Reported Smoking Status: Never smoker Past Alcohol Use History: None Reported Past Drug Use History: None Reported - Past Family History Father Family Medical History: Cancer Mother Family Medical History: Cancer Sister(s) Family Medical History: Cancer, Deep Vein Thrombosis (DVT) Additional Family Medical History / Comment(s): skin cancer Brother(s) History Unknown: Yes Family Medical History: Cancer Additional Family Medical History / Comment(s): skin cancer Medications and Allergies Home Medications Medication Instructions Recorded Confirmed Type Magnesium Chloride [Mag64] 64 mg PO DAILY@69910/22/15 05/21/21 History Simvastatin [Zocor] 20 mg PO HS@209910/22/15 05/21/21 History Amiodarone [Cordarone] 200 mg PO DAILY@89911/24/15 05/21/21 History Levothyroxine Sodium [Synthroid] 25 mcg PO DAILY@69903/30/18 05/21/21 History Warfarin [Coumadin] 1 mg PO SUTUTH@209903/30/18 05/21/21 History Warfarin [Coumadin] 1.5 mg PO MOWEFRSA@209903/30/18 05/21/21 History calcium polycarbophiL [Fibercon] 625 mg PO DAILY PRN 11/19/18 05/21/21 History Cetirizine HCl 10 mg PO DAILY PRN 11/21/20 05/21/21 History Metoprolol Succinate [Toprol XL] 100 mg PO DAILY@0900 11/21/20 05/21/21 History glipiZIDE [Glucotrol] 5 mg PO BID@0900,2100 11/21/20 05/21/21 History Loperamide [Imodium] 2 mg PO BID@0900,2100 04/29/21 05/21/21 History Triamcinolone 0.1% Ointment 1 applic TOPICAL DAILY@0900 04/29/21 05/21/21 History [Kenalog 0.1% Ointment] Furosemide [Lasix] 40 mg PO BID@0900,1600 05/21/21 05/21/21 History Sacubitril/Valsartan [Entresto 24 1 tab PO BID@0900,2100 05/21/21 05/21/21 History mg-26 mg Tablet] Spironolactone [Aldactone] 25 mg PO DAILY@0900 05/21/21 05/21/21 History Allergies Allergy/AdvReac Type Severity Reaction Status Date / Time quinidine Allergy Rash/Hives Verified 05/21/21 21:03 CLEAR PLASTIC TAPE Allergy Rash/Hives Uncoded 05/21/21 16:43 Physical Exam Vitals: Vital Signs Temp Pulse Pulse Resp BP BP Pulse Ox 05/22/21 07:14 98.6 F 70 17 91/55 96 05/22/21 02:00 98.0 F 70 18 96/58 97 05/21/21 22:10 98.0 F 70 18 113/70 96 05/21/21 20:06 66 19 105/65 98 05/21/21 16:40 97.9 F 70 20 104/65 96 Intake and Output 05/21/21 05/22/21 05/22/21 22:59 06:59 14:59 Other: Voiding Method Toilet # Voids 2 Weight 67.585 kg GENERAL EXAM: Alert, pleasant 86-year-old female on 2 L nasal cannula, comfortable in no apparent distress. HEAD: Normocephalic. EYES: Normal reaction of pupils, equal size. NOSE: Clear with pink turbinates. THROAT: No erythema or exudates. NECK: No masses, no JVD. CHEST: No chest wall deformity. LUNGS: Equal air entry with crackles in the right base, diminished. CVS: S1 and S2 normal with no audible murmur, regular rhythm. ABDOMEN: No hepatosplenomegaly, normal bowel sounds, no guarding or rigidity. SPINE: No scoliosis or deformity SKIN: No rashes CENTRAL NERVOUS SYSTEM: No focal deficits, tone is normal in all 4 extremities. EXTREMITIES: There is no peripheral edema. No clubbing, no cyanosis. Peripheral pulses are intact. Results - Laboratory Findings CBC and BMP: 05/21/21 18:57 05/21/21 18:57 PT/INR, D-dimer PT 17.6 sec (9.0-12.0) H 05/22/21 04:41 INR 1.7 (<1.2) H 05/22/21 04:41 Abnormal lab findings: Abnormal Labs 05/21/21 05/21/21 05/21/21 18:54 18:57 18:57 PT 16.8 H INR 1.7 H Carbon Dioxide 31 H BUN 34 H Creatinine 1.62 H Glucose 130 H POC Glucose (mg/dL) 112 H AST 41 H 05/21/21 05/22/21 05/22/21 22:28 03:28 04:41 PT 17.6 H INR 1.7 H Carbon Dioxide BUN Creatinine Glucose POC Glucose (mg/dL) 143 H 144 H AST - Diagnostic Findings Chest x-ray: image reviewed Assessment and Plan Assessment: 1 Recurrent right-sided pleural effusion status post previous ultrasound-guided thoracentesis on 05/06/2021 with 900 ML's of fluid removed. Small right-sided pneumothorax noted and resolved without intervention. Cytology negative for malignancy. We admitted yesterday 05/21/2021 with increasing shortness of breath and recurrent moderate to large right-sided pleural effusion. Thoracentesis performed at the bedside today with 1.5 L of yellow fluid removed. Follow-up chest x-ray reveals no evidence of pneumothorax. Fluid analysis and cytology pending. 2 Acute exacerbation of chronic systolic congestive heart failure. Ejection fraction 20-25% 3 History of severe mitral regurgitation 4 Severe cardiomyopathy status post AICD placement. 5 History of atrial fibrillation anticoagulated with warfarin and INR 1.7 6 Diabetes mellitus 7 Hyperlipidemia 8 Nonsmoker 9 Hypothyroidism Plan: The patient was seen and evaluated Chest x-ray, ultrasound, labs reviewed Right-sided thoracentesis performed today 1.5 L of yellow fluid removed Cytology and fluid analysis pending Follow-up chest x-ray revealed no evidence of pneumothorax Cleared for discharge from the pulmonary standpoint Follow up with Dr. Harry in the office in 1 week I have personally seen and examined the patient, performed the documentation and the assessment and plan as written. Number of minutes spent on the visit: 20.
[2021-05-22 11:28] LABS: Glucose,Whole Blood 122 mg/dL (75-99)
--- NOTE | 2021-05-22 11:41 | P.HPIM ---
History of Present Illness H&P Date: 05/22/21 HISTORY OF PRESENT ILLNESS This is an 86-year-old female patient of Dr. Solomon and Dr. Rucker with past medical history of nonischemic cardiomyopathy status post IV ICD, chronic persistent atrial fibrillation on long-term anticoagulation with Coumadin, mitral regurgitation, chronic systolic heart failure, hypertension, hyperlipidemia, diabetes mellitus type 2, chronic kidney disease stage IV, rosacea. She had a recent hospitalization and discharge home on 05/08, treated for acute exacerbation of systolic heart failure with EF of 30-35%, right pleural effusion status post right-sided thoracentesis 05/06. Patient was discharged home in stable condition. She has had a follow-up appointment in the office. She now presents to emergency center after she developed shortness of breath for the past 2 nights and progressively worsening. Patient was found to be afebrile, heart rate 70, blood pressure 104/65, pulse ox 96%. EKG is atrial fibrillation with ventricular pacing. CBC unremarkable. BUN 34 creatinine 1.62, CO2 31, blood sugar 130. INR 1.7. Troponin negative 1. AST 41 otherwise liver function tests were normal. ProBNP 10,800. Rotavirus PCR not detected. Influenza A and influenza B not detected. Chest x-ray reveals interval increase in right pleural effusion now moderate to large in size. Ultrasound of the chest revealed moderate size right pleural effusion 12.7 cm pocket, no significant left-sided pleural effusion 2.6 cm. Patient has been seen by cardiology with recommendations to continue IV diuretics, thoracentesis, evaluate for possible mitral valve clip as an outpatient. Pulmonary medicine performed thoracentesis on the right with 1.5 L of yellow fluid removed. Repeat chest x-ray reveals improved right sided pleural effusion. REVIEW OF SYSTEMS Constitutional: No fever, no chills, no night sweats. Reports weight change. No weakness, reports fatigue no lethargy. No daytime sleepiness. EENT: No headache. No blurred vision or double vision, no loss of vision. No loss of Hearing, no ringing in the ears, no dizziness. No nasal drainage or congestion. No epistaxis. No sore throat. Lungs: Reports shortness of breath, no cough, no sputum production. No wheezing. Cardiovascular: No chest pain, no lower extremity edema. No palpitations. No paroxysmal nocturnal dyspnea. Reports orthopnea. No lightheadedness or dizziness. No syncopal episodes. Abdominal: No abdominal pain. No nausea, vomiting. No diarrhea. No constipation. No bloody or tarry stools.. No loss of appetite. Genitourinary: No dysuria, increased frequency, urgency. No urinary retention. Musculoskeletal: No myalgias. No muscle weakness, no gait dysfunction, no frequent falls. No back pain. No neck pain. Integumentary: No wounds, no lesions. No rash or pruritus. No unusual bruising. No change in hair or nails. Neurologic: No aphasia. No facial droop. No change in mentation. No head injury. No headache. No paralysis. No paresthesia. Psychiatric: No depression. No anxiety. No mood swings. Endocrine: No abnormal blood sugars. Reports weight change. No excessive sweating or thirst. No cold intolerance. SOCIAL HISTORY Patient is a lifelong nonsmoker, no alcohol use, marijuana use or illicit drug use. She does not have CPAP, O2, nebulizer. She worked in [employer]-type jobs in the past and is retired. FAMILY HISTORY Father at age 67 from kidney cancer. Mother at age 78 with history of breast cancer and also a female cancer. Patient has 1 brother that passed from COPD at age 69. She has 2 sisters one passed at age 45 from breast cancer and one at age 79 for Alzheimer's dementia. Patient has a total of 6 children. 2 were born stillborn. She has one son that is passed from a CVA brain bleed. She has 3 daughters and one has Covid one has problems due to motor vehicle accident. PHYSICAL EXAMINATION Gen: This is an 86-year-old female. She is resting in bed and appears to be comfortable and in no acute distress. HEENT: Head is atraumatic, normocephalic. Pupils equal, round. Sclerae is anicteric. NECK: Supple. No JVD. No lymphadenopathy. No thyromegaly. LUNGS: Diminished to the bilateral bases, greater on the right. No intercostal retractions. HEART: Irregularly irregular rhythm with systolic murmur. ABDOMEN: Soft. Bowel sounds are present. No masses. No tenderness. EXTREMITIES: No pedal edema. No calf tenderness. NEUROLOGICAL: Patient is awake, alert and oriented x3. Cranial nerves 2 through 12 are grossly intact. ASSESSMENT AND PLAN 1. Acute respiratory distress secondary to large recurrent right pleural effusion and chronic systolic heart failure. Patient is status post right-sided thoracentesis of 1500 ML's of yellow fluid. Pulmonary and cardiology consults appreciated. Continue patient on Lasix 40 mg oral twice daily, monitor I&O and daily weights, monitor renal function and electrolytes. 2. Nonischemic cardiomyopathy status post AICD and chronic systolic heart failure. Continue Lasix from home, continue metoprolol, Aldactone 25 mg daily, Entresto 24/26 milligrams twice daily. 3. Hypertension. Continue metoprolol, amiodarone, Lasix. 4. Severe mitral regurgitation. 5. Chronic persistent atrial fibrillation on Coumadin. Patient will be resumed on Coumadin tonight. Continue amiodarone 200 mg daily, Toprol-XL 100 mg daily. 6. Hyperlipidemia. Continue atorvastatin 10 mg at bedtime. 7. Diabetes mellitus type 2. Continue glipizide 5 mg twice daily, NovoLog scale before meals and at bedtime. 8. Hypothyroidism. Continue levothyroxine 25 mg daily. 9. GI prophylaxis. Protonix. 10. DVT prophylaxis. Coumadin. Patient will be admitted to the hospital for a minimum of 2 night stay. DISCHARGE PLAN Most likely home with homecare. Impression and plan of care have been directed as dictated by the signing physician. Nicole Park nurse practitioner acting as scribe for signing physician. Past Medical History Past Medical History: Cancer, Heart Failure, Diabetes Mellitus, Hyperlipidemia, Osteoarthritis (OA), Skin Disorder, Vascular Disorder Additional Past Medical History / Comment(s): basal cell skin cancer, rash on face, History of Any Multi-Drug Resistant Organisms: None Reported Past Surgical History: AICD, Appendectomy, Bladder Surgery, Bowel Resection, Cholecystectomy, Heart Catheterization, Hysterectomy, Tonsillectomy, Tubal Ligation Additional Past Surgical History / Comment(s): venogram/fluoroscopy, neema israel racts, Past Anesthesia/Blood Transfusion Reactions: No Reported Reaction Type of Cardiac Device: AICD Device Placement Date:: 2007 Past Psychological History: No Psychological Hx Reported Smoking Status: Never smoker Past Alcohol Use History: None Reported Past Drug Use History: None Reported - Past Family History Father Family Medical History: Cancer Mother Family Medical History: Cancer Sister(s) Family Medical History: Cancer, Deep Vein Thrombosis (DVT) Additional Family Medical History / Comment(s): skin cancer Brother(s) History Unknown: Yes Family Medical History: Cancer Additional Family Medical History / Comment(s): skin cancer Medications and Allergies Home Medications Medication Instructions Recorded Confirmed Type Magnesium Chloride [Mag64] 64 mg PO DAILY@0700 10/22/15 05/21/21 History Simvastatin [Zocor] 20 mg PO HS@209910/22/15 05/21/21 History Amiodarone [Cordarone] 200 mg PO DAILY@0900 11/24/15 05/21/21 History Levothyroxine Sodium [Synthroid] 25 mcg PO DAILY@0703/30/18 05/21/21 History Warfarin [Coumadin] 1 mg PO SUTUTH@209903/30/18 05/21/21 History Warfarin [Coumadin] 1.5 mg PO MOWEFRSA@209903/30/18 05/21/21 History calcium polycarbophiL [Fibercon] 625 mg PO DAILY PRN 11/19/18 05/21/21 History Cetirizine HCl 10 mg PO DAILY PRN 11/21/20 05/21/21 History Metoprolol Succinate [Toprol XL] 100 mg PO DAILY@0900 11/21/20 05/21/21 History glipiZIDE [Glucotrol] 5 mg PO BID@0900,209911/21/20 05/21/21 History Loperamide [Imodium] 2 mg PO BID@0900,209904/29/21 05/21/21 History Triamcinolone 0.1% Ointment 1 applic TOPICAL DAILY@89904/29/21 05/21/21 History [Kenalog 0.1% Ointment] Furosemide [Lasix] 40 mg PO BID@0900,1600 05/21/21 05/21/21 History Sacubitril/Valsartan [Entresto 24 1 tab PO BID@0900,209905/21/21 05/21/21 History mg-26 mg Tablet] Spironolactone [Aldactone] 25 mg PO DAILY@0900 05/21/21 05/21/21 History Allergies Allergy/AdvReac Type Severity Reaction Status Date / Time quinidine Allergy Rash/Hives Verified 05/21/21 21:03 CLEAR PLASTIC TAPE Allergy Rash/Hives Uncoded 05/21/21 16:43 Physical Exam Vitals: Vital Signs Temp Pulse Pulse Resp BP BP Pulse Ox 05/22/21 07:14 98.6 F 70 17 91/55 96 05/22/21 02:00 98.0 F 70 18 96/58 97 05/21/21 22:10 98.0 F 70 18 113/70 96 05/21/21 20:06 66 19 105/65 98 05/21/21 16:40 97.9 F 70 20 104/65 96 Intake and Output 05/21/21 05/22/21 05/22/21 22:59 06:59 14:59 Other: # Voids 2 Weight 67.585 kg Results CBC & Chem 7: 05/21/21 18:57 05/21/21 18:57 Labs: Abnormal Lab Results - Last 24 Hours (Table) 05/21/21 05/21/21 05/21/21 Range/Units 18:54 18:57 18:57 PT 16.8 H (9.0-12.0) sec INR 1.7 H (<1.2) Carbon Dioxide 31 H (22-30) mmol/L BUN 34 H (7-17) mg/dL Creatinine 1.62 H (0.52-1.04) mg/dL Glucose 130 H (74-99) mg/dL POC Glucose (mg/dL) 112 H (75-99) mg/dL AST 41 H (14-36) U/L 05/21/21 05/22/21 05/22/21 Range/Units 22:28 03:28 04:41 PT 17.6 H (9.0-12.0) sec INR 1.7 H (<1.2) Carbon Dioxide (22-30) mmol/L BUN (7-17) mg/dL Creatinine (0.52-1.04) mg/dL Glucose (74-99) mg/dL POC Glucose (mg/dL) 143 H 144 H (75-99) mg/dL AST (14-36) U/L Thrombosis Risk Factor Assmnt - Choose All That Apply Any of the Below Risk Factors Present?: Yes Each Factor Represents 1 point: Heart failure (<1month) Each Risk Factor Represents 3 Points: Age 75 years or older Other congenital or acquired thrombophilia - If yes, enter type in comment: No Thrombosis Risk Factor Assessment Total Risk Factor Score: 4 Thrombosis Risk Factor Assessment Level: Moderate Risk
--- NOTE | 2021-05-22 12:26 | OP ---
OPERATIVE REPORT OPERATIVE REPORT: Right-sided thoracentesis. PREOPERATIVE DIAGNOSIS: Right pleural effusion. POSTOPERATIVE DIAGNOSIS: Right pleural effusion. ANESTHESIA USED: Two mL of 1% lidocaine. PROCEDURE DESCRIPTION: The patient was placed in a sitting-upright position. The area below the right scapula was prepared in a sterile fashion and drapes were applied. The area of the fluid was localized earlier by ultrasound, and at the level of the marking, the area was locally anesthetized. Then a 26-gauge needle was inserted into the pleural space after the fluid was localized. Then a small tiny incision was made, and a standard thoracentesis catheter and needle were used, advanced into the pleural space, and the fluid was obtained. The catheter was advanced over the needle into the pleural space, and the needle was pulled out of the pleural space. Freely flowing fluid was removed, roughly 1500 mL of won-colored fluid drained from the right pleural space. No complications. No blood loss noted. Procedure was well tolerated. No evidence of any complications postoperatively. MMODL / IJN: [id number] /
[2021-05-22 17:00] LABS: Glucose,Whole Blood 158 mg/dL (75-99)
[2021-05-22] MEDS ORDERED: WARFARIN 2 MG TAB PO ONE (18:00)
[2021-05-22 20:58] LABS: Appearance,BF Clear
[2021-05-22 21:53] LABS: Glucose,Whole Blood 103 mg/dL (75-99)
[2021-05-22] MEDS: ATORVASTATIN 10 MG TAB PO SCH (23:03)
[2021-05-23 00:51] LABS: Glucose, BF Source Pleural Fluid; Glucose, Body Fluid 138 mg/dL; LDH, Body Fluid Source Pleural Fluid; T. Protein, Body Fluid Source Pleural Fluid; Total Protein, Body Fluid 3000 mg/dL
[2021-05-23 02:58] LABS: Glucose,Whole Blood 115 mg/dL (75-99)
[2021-05-23 05:40] LABS: INR 1.9 (<1.2); Prothrombin Time 19.5 sec (9.0-12.0)
[2021-05-23 05:53] LABS: African American GFR (CKD) 32 (>60 ml/min/1.73 sqM); Anion Gap 7 mmol/L; Blood Urea Nitrogen 38 mg/dL (7-17); Calcium 8.5 mg/dL (8.4-10.2); Carbon Dioxide 33 mmol/L (22-30); Chloride 98 mmol/L (98-107); Glucose 124 mg/dL (74-99); Non-African American GFR(CKD) 28 (>60 ml/min/1.73 sqM); Potassium 3.2 mmol/L (3.5-5.1); Sodium 138 mmol/L (137-145)
[2021-05-23 06:46] LABS: Glucose,Whole Blood 119 mg/dL (75-99)
[2021-05-23] MEDS: INSULIN ASPART (NovoLOG) 100 UNIT/ML VIAL SQ SCH ×4 (07:17→20:44)
[2021-05-23] MEDS: MAGNESIUM CHLORIDE 64 MG PO SCH (08:28)
[2021-05-23] MEDS: LEVOTHYROXINE 25 MCG TAB PO SCH (08:40)
[2021-05-23] MEDS ORDERED: Potassium Replacement Protocol 1 EACH MISC MISCELLANE PRN (09:07)
[2021-05-23] MEDS: FUROSEMIDE 40 MG TAB PO SCH ×2 (09:28→16:00)
[2021-05-23] MEDS: AMIODARONE 200 MG TAB PO SCH (09:28)
[2021-05-23] MEDS: POTASSIUM CHLORIDE ER 20 MEQ TAB.ER PO SCH ×2 (09:28→11:30)
[2021-05-23] MEDS: SPIRONOLACTONE 25 MG TAB PO SCH (09:28)
[2021-05-23] MEDS: glipiZIDE 5 MG TAB PO SCH ×2 (09:28→21:22)
[2021-05-23] MEDS: SACUBITRIL/VALSARTAN 24 MG-26 MG TABLET PO SCH ×2 (09:28→21:22)
[2021-05-23] MEDS: LOPERAMIDE 2 MG CAP PO SCH ×2 (09:28→21:22)
--- NOTE | 2021-05-23 09:29 | XR ---
EXAMINATION TYPE: XR chest 2V DATE OF EXAM: 05/23/2021 COMPARISON: 05/22/2021 HISTORY: Shortness of breath TECHNIQUE: Frontal and lateral views of the chest are obtained. FINDINGS: Scattered senescent parenchymal changes noted. Hyperinflation compatible with COPD. No evidence for infiltrate. No evidence for atelectasis. Small right-sided pleural effusion is slight ly smaller in size relative to the prior study. Heart size is stable. Mediastinal structures are stable and grossly unremarkable. No evidence for hilar prominence. Degenerative changes dorsal spine. IMPRESSION: 1. Small right-sided pleural effusion is slightly smaller in size relative to the prior study.
[2021-05-23] MEDS: METOPROLOL SUCCINATE (ER) 50 MG TAB.ER.24H PO SCH (09:31)
[2021-05-23] MEDS: MIDODRINE 5 MG TAB PO SCH ×2 (11:30→16:00)
[2021-05-23 11:32] LABS: Glucose,Whole Blood 201 mg/dL (75-99)
--- NOTE | 2021-05-23 11:41 | P.PN ---
Subjective History of Present Illness: The patient is an 86-year-old female with known history of severe mitral regurgitation, recurrent CHF, severe nonischemic cardiomyopathy, ICD implantation and atrial fibrillation who presents with worsening dyspnea. She had a known ejection fraction of 20-25% and was in the hospital recently with similar findings at that time had evidence of CHF and significant pleural effusion. She underwent thoracentesis with improvement in her breathing but presents again with worsening dyspnea, acute onset with no chest discomfort, dizziness or palpitations. She is fatigued. She has no significant peripheral edema. After her last thoracentesis she had a pneumothorax that resolved. On presentation her NT proBNP was elevated. She is in atrial fibrillation with 100% ventricular pacing. She has no symptoms to suggest angina pectoris. Her coronary risk factors are positive for diabetes, she is a nonsmoker, she is hy perlipidemic. Her medication include Aldactone 25 mg daily, Coumadin, Zocor 20 mg daily, Glucotrol, metoprolol succinate 100 mg daily, Synthroid, Lasix 40 mg twice a day, Cordarone 200 mg daily in addition to Entresto 2426 milligrams twice a day. 05/23/2021 Pt resting comfortably in no acute distress. Thoracentesis yesterday with 1500 ml of fluid removed. Cytology pending. Repeat chest xray this am revealed small right pleural effusion smaller than previous study. Lab data reviewed, INR 1.9, sodium 138, potassium 3.2 and creatinine 1.64. Currently maintained on amiodarone 200 mg daily, atorvastatin 10 mg daily, lasix 40 mg PO daily, toprol 100 mg daily, midodrine 5 mg TID, entresto 24/26 mg BID, aldactone 25 mg daily and warfarin. Blood pressure 95/50 heart rate 69 afebrile and maintaining oxygen saturation on room air. Physical Examination: No acute distress Neck: Good carotid upstroke, no bruit, jugular venous distention noted. Lungs: Decreased breath sounds with dullness at the bases. Heart: Regular rate and rhythm, S1-S2, no S3, no rub. Holosystolic murmur at the apex, 3/6. Extremities: Trace to 1+ edema, intact distal pulses. Impression: 1. Progressive dyspnea with evidence of CHF with right-sided failure and pleural effusion, recurrent in a patient with known history of severe nonischemic cardiomyopathy and severe mitral regurgitation 2. Severe mitral regurgitation 3. Severe nonischemic cardiomyopathy, post ICD pacemaker implantation, EF 20- 25% 4. Chronic persistent atrial fibrillation, anti-coagulated 5. Diabetes mellitus 6. Hyperlipidemia Plan: Continue current medical regimen. Patient can be evaluated for possible mitral valve clip as an outpatient if she is a candidate. Stop amiodarone. 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 Patient was seen and examined. Objective - Vital Signs Vital signs: Vital Signs Temp 97.4 F L 05/23/21 06:54 Pulse 69 05/23/21 08:38 Resp 18 05/23/21 06:54 BP 95/50 05/23/21 08:38 Pulse Ox 96 05/23/21 06:54 Intake & Output 05/22/21 05/23/21 05/23/21 18:59 06:59 18:59 Other: Voiding Method Toilet Toilet # Voids 3 1 # Bowel Movements 2 - Labs CBC & Chem 7: 05/21/21 18:57 05/23/21 05:12 Labs: Abnormal Lab Results - Last 24 Hours (Table) 05/22/21 05/22/21 05/22/21 Range/Units 11:26 16:59 21:52 PT (9.0-12.0) sec INR (<1.2) Potassium (3.5-5.1) mmol/L Carbon Dioxide (22-30) mmol/L BUN (7-17) mg/dL Creatinine (0.52-1.04) mg/dL Glucose (74-99) mg/dL POC Glucose (mg/dL) 122 H 158 H 103 H (75-99) mg/dL 05/23/21 05/23/21 05/23/21 Range/Units 02:57 05:12 05:12 PT 19.5 H (9.0-12.0) sec INR 1.9 H (<1.2) Potassium 3.2 L (3.5-5.1) mmol/L Carbon Dioxide 33 H (22-30) mmol/L BUN 38 H (7-17) mg/dL Creatinine 1.64 H (0.52-1.04) mg/dL Glucose 124 H (74-99) mg/dL POC Glucose (mg/dL) 115 H (75-99) mg/dL 05/23/21 Range/Units 06:43 PT (9.0-12.0) sec INR (<1.2) Potassium (3.5-5.1) mmol/L Carbon Dioxide (22-30) mmol/L BUN (7-17) mg/dL Creatinine (0.52-1.04) mg/dL Glucose (74-99) mg/dL POC Glucose (mg/dL) 119 H (75-99) mg/dL Microbiology - Last 24 Hours (Table) 05/22/21 12:00 Gram Stain - Preliminary Pleural Fluid Body Fluid Culture - Preliminary 05/22/21 08:45 Acid Fast Bacilli Culture - Preliminary Pleural Fluid 05/22/21 08:45 Fungal Culture - Preliminary Pleural Fluid
[2021-05-23 16:27] LABS: Glucose,Whole Blood 121 mg/dL (75-99)
--- NOTE | 2021-05-23 19:49 | P.PN ---
Subjective Progress Note Date: 05/23/21 HISTORY OF PRESENT ILLNESS This is an 86-year-old female patient of Dr. Solomon and Dr. Rucker with past medical history of nonischemic cardiomyopathy status post IV ICD, chronic persistent atrial fibrillation on long-term anticoagulation with Coumadin, mitral regurgitation, chronic systolic heart failure, hypertension, hyperlipidemia, diabetes mellitus type 2, chronic kidney disease stage IV, rosacea. She had a recent hospitalization and discharge home on 05/08, treated for acute exacerbation of systolic heart failure with EF of 30-35%, right pleural effusion status post right-sided thoracentesis 05/06. Patient was discharged home in stable condition. She has had a follow-up appointment in the office. She now presents to emergency center after she developed shortness of breath for the past 2 nights and progressively worsening. Patient was found to be afebrile, heart rate 70, blood pressure 104/65, pulse ox 96%. EKG is atrial fibrillation with ventricular pacing. CBC unremarkable. BUN 34 creatinine 1.62, CO2 31, blood sugar 130. INR 1.7. Troponin negative 1. AST 41 otherwise liver function tests were normal. ProBNP 10,800. Rotavirus PCR not detected. Influenza A and influenza B not detected. Chest x-ray reveals interval increase in right pleural effusion now moderate to large in size. Ultrasound of the chest revealed moderate size right pleural effusion 12.7 cm pocket, no significant left-sided pleural effusion 2.6 cm. Patient has been seen by cardiology with recommendations to continue IV diuretics, thoracentesis, evaluate for possible mitral valve clip as an outpatient. Pulmonary medicine performed thoracentesis on the right with 1.5 L of yellow fluid removed. Repeat chest x-ray reveals improved right sided pleural effusion. 05/23: Patient had thoracentesis yesterday for 1500 mL of fluid removed, repeat chest x-ray still reveal right-sided smaller pleural effusion, his INR is 1.9 patient warfarin was resumed this point still on potassium replacement therapy, creatinine still at 1.64 watching her kidney functioncarefully, blood pressure was significantly low today and patient still require and Crestor along with Toprol-XL 100 mg a day, Toprol was switched to nighttime and Trester will be giving the patient be started on midodrine 5 mg 3 times a day to be held if systolic blood pressures above 1:30. Patient is remain on O2 and has O2 only at nighttime at home. The patient is doing well there is a potential home tomorrow. REVIEW OF SYSTEMS Constitutional: No fever, no chills, no night sweats. Reports weight change. No weakness, reports fatigue no lethargy. No daytime sleepiness. EENT: No headache. No blurred vision or double vision, no loss of vision. No loss of Hearing, no ringing in the ears, no dizziness. No nasal drainage or congestion. No epistaxis. No sore throat. Lungs: Reports shortness of breath, no cough, no sputum production. No wheezing. Cardiovascular: No chest pain, no lower extremity edema. No palpitations. No paroxysmal nocturnal dyspnea. Reports orthopnea. No lightheadedness or dizziness. No syncopal episodes. Abdominal: No abdominal pain. No nausea, vomiting. No diarrhea. No constipation. No bloody or tarry stools.. No loss of appetite. Genitourinary: No dysuria, increased frequency, urgency. No urinary retention. Musculoskeletal: No myalgias. No muscle weakness, no gait dysfunction, no frequent falls. No back pain. No neck pain. Integumentary: No wounds, no lesions. No rash or pruritus. No unusual bruising. No change in hair or nails. Neurologic: No aphasia. No facial droop. No change in mentation. No head injury. No headache. No paralysis. No paresthesia. Psychiatric: No depression. No anxiety. No mood swings. Endocrine: No abnormal blood sugars. Reports weight change. No excessive sweating or thirst. No cold intolerance. PHYSICAL EXAMINATION Gen: This is an 86-year-old female. She is resting in bed and appears to be comfortable and in no acute distress. HEENT: Head is atraumatic, normocephalic. Pupils equal, round. Sclerae is anicteric. NECK: Supple. No JVD. No lymphadenopathy. No thyromegaly. LUNGS: Diminished to the bilateral bases, greater on the right. No intercostal retractions. HEART: Irregularly irregular rhythm with systolic murmur. ABDOMEN: Soft. Bowel sounds are present. No masses. No tenderness. EXTREMITIES: No pedal edema. No calf tenderness. NEUROLOGICAL: Patient is awake, alert and oriented x3. Cranial nerves 2 through 12 are grossly intact. ASSESSMENT AND PLAN 1. Acute respiratory distress secondary to large recurrent right pleural effusion and chronic systolic heart failure. Patient is status post right-sided thoracentesis of 1500 ML's of yellow fluid. continue to watch for any recurrent pleural effusion, patient remain on diuretics at this point with spironolactone and furosemide. 2. Nonischemic cardiomyopathy status post AICD and chronic systolic heart failure. Continue Lasix from home, continue metoprolol, Aldactone 25 mg daily, Entresto 24/26 milligrams twice daily.his blood pressure is holding low at this point. 3. Hypertension. still on metoprolol and Entresto but blood pressures quite a bit low at this point to start midodrine 5 mg 3 times a day. 4. Severe mitral regurgitation. no surgical intervention be done. 5. Chronic persistent atrial fibrillation on Coumadin. Patient will be resumed on Coumadin tonight. Continue amiodarone 200 mg daily, Toprol-XL 100 mg daily. 6. Hyperlipidemia. Continue atorvastatin 10 mg at bedtime. 7. Diabetes mellitus type 2. Continue glipizide 5 mg twice daily, NovoLog scale before meals and at bedtime. 8. Hypothyroidism. Continue levothyroxine 25 mg daily. 9 hypotension: Start patient on midodrine 5 mg 3 times a day. 10 stage III a chronic kidney disease: Most likely worsening with medication at this point continue conservative management and watch BUN/creatinine tomorrow. CODE STATUS: Full code. Discharge expectation: Most likely be discharge home tomorrow. Objective - Vital Signs Vital signs: Vital Signs Temp 98.4 F 05/23/21 02:00 Pulse 68 05/23/21 02:00 Resp 18 05/23/21 02:00 BP 85/47 05/23/21 02:00 Pulse Ox 93 L 05/23/21 02:00 Intake & Output 05/22/21 05/22/21 05/23/21 06:59 18:59 06:59 Weight 67.585 kg Other: Voiding Method Toilet Toilet # Voids 2 3 1 # Bowel Movements 2 - Labs CBC & Chem 7: 05/21/21 18:57 05/23/21 05:12 Labs: Abnormal Lab Results - Last 24 Hours (Table) 05/22/21 05/22/21 05/22/21 Range/Units 11:26 16:59 21:52 PT (9.0-12.0) sec INR (<1.2) Potassium (3.5-5.1) mmol/L Carbon Dioxide (22-30) mmol/L BUN (7-17) mg/dL Creatinine (0.52-1.04) mg/dL Glucose (74-99) mg/dL POC Glucose (mg/dL) 122 H 158 H 103 H (75-99) mg/dL 05/23/21 05/23/21 05/23/21 Range/Units 02:57 05:12 05:12 PT 19.5 H (9.0-12.0) sec INR 1.9 H (<1.2) Potassium 3.2 L (3.5-5.1) mmol/L Carbon Dioxide 33 H (22-30) mmol/L BUN 38 H (7-17) mg/dL Creatinine 1.64 H (0.52-1.04) mg/dL Glucose 124 H (74-99) mg/dL POC Glucose (mg/dL) 115 H (75-99) mg/dL Microbiology - Last 24 Hours (Table) 05/22/21 12:00 Gram Stain - Preliminary Pleural Fluid Body Fluid Culture - Preliminary 05/22/21 08:45 Acid Fast Bacilli Culture - Preliminary Pleural Fluid 05/22/21 08:45 Fungal Culture - Preliminary Pleural Fluid
[2021-05-23 20:08] LABS: Glucose,Whole Blood 115 mg/dL (75-99)
[2021-05-23] MEDS ORDERED: WARFARIN 1.5 MG TAB PO SCH (21:00)
[2021-05-23] MEDS ORDERED: METOPROLOL SUCCINATE (ER) 100 MG TAB.ER.24H PO SCH ×2 (21:00→21:03)
[2021-05-23] MEDS: ATORVASTATIN 10 MG TAB PO SCH (21:22)
[2021-05-24 02:16] LABS: Glucose,Whole Blood 111 mg/dL (75-99)
[2021-05-24 02:19] VITALS: TEMP 97.5
[2021-05-24] MEDS: LEVOTHYROXINE 25 MCG TAB PO SCH (05:57)
[2021-05-24 06:03] LABS: INR 1.7 (<1.2); Prothrombin Time 17.2 sec (9.0-12.0)
[2021-05-24 06:07] LABS: African American GFR (CKD) 30 (>60 ml/min/1.73 sqM); Anion Gap 8 mmol/L; Blood Urea Nitrogen 46 mg/dL (7-17); Calcium 8.9 mg/dL (8.4-10.2); Carbon Dioxide 29 mmol/L (22-30); Chloride 102 mmol/L (98-107); Glucose 99 mg/dL (74-99); Non-African American GFR(CKD) 26 (>60 ml/min/1.73 sqM); Potassium 3.5 mmol/L (3.5-5.1); Sodium 139 mmol/L (137-145)
[2021-05-24 06:47] LABS: Glucose,Whole Blood 105 mg/dL (75-99)
[2021-05-24] MEDS: INSULIN ASPART (NovoLOG) 100 UNIT/ML VIAL SQ SCH ×2 (06:57→11:25)
[2021-05-24] MEDS: MAGNESIUM CHLORIDE 64 MG PO SCH (06:57)
[2021-05-24 08:11] VITALS: PULSE 70; RESP 17
[2021-05-24 09:14] VITALS: BP 97/57
[2021-05-24] MEDS: LOPERAMIDE 2 MG CAP PO SCH (09:14)
[2021-05-24] MEDS: MIDODRINE 5 MG TAB PO SCH ×2 (09:15→13:39)
[2021-05-24] MEDS: glipiZIDE 5 MG TAB PO SCH (09:15)
[2021-05-24] MEDS: FUROSEMIDE 40 MG TAB PO SCH (09:15)
[2021-05-24] MEDS: SPIRONOLACTONE 25 MG TAB PO SCH (09:15)
[2021-05-24] MEDS: SACUBITRIL/VALSARTAN 24 MG-26 MG TABLET PO SCH (09:17)
--- NOTE | 2021-05-24 10:38 | P.PN ---
Subjective History of Present Illness: The patient is an 86-year-old female with known history of severe mitral regurgitation, recurrent CHF, severe nonischemic cardiomyopathy, ICD implantation and atrial fibrillation who presents with worsening dyspnea. She had a known ejection fraction of 20-25% and was in the hospital recently with similar findings at that time had evidence of CHF and significant pleural effusion. She underwent thoracentesis with improvement in her breathing but presents again with worsening dyspnea, acute onset with no chest discomfort, dizziness or palpitations. She is fatigued. She has no significant peripheral edema. After her last thoracentesis she had a pneumothorax that resolved. On presentation her NT proBNP was elevated. She is in atrial fibrillation with 100% ventricular pacing. She has no symptoms to suggest angina pectoris. Her coronary risk factors are positive for diabetes, she is a nonsmoker, she is hy perlipidemic. Her medication include Aldactone 25 mg daily, Coumadin, Zocor 20 mg daily, Glucotrol, metoprolol succinate 100 mg daily, Synthroid, Lasix 40 mg twice a day, Cordarone 200 mg daily in addition to Entresto 2426 milligrams twice a day. 05/24/2021 Patient seen and examined sitting up in chair in no acute distress she was also evaluated ambulating this morning and had no complaints of dizziness or feeling lightheaded. Breathing is stable. Blood pressure running on the low side in t he 80s to 90s systolic. Physical Examination: No acute distress Neck: Good carotid upstroke, no bruit, jugular venous distention noted. Lungs: Decreased breath sounds with dullness at the bases. Heart: Regular rate and rhythm, S1-S2, no S3, no rub. Holosystolic murmur at the apex, 3/6. Extremities: Trace to 1+ edema, intact distal pulses. Impression: 1. Progressive dyspnea with evidence of CHF with right-sided failure and pleural effusion, recurrent in a patient with known history of severe nonischemic cardiomyopathy and severe mitral regurgitation 2. Severe mitral regurgitation 3. Severe nonischemic cardiomyopathy, post ICD pacemaker implantation, EF 20- 25% 4. Chronic persistent atrial fibrillation, anti-coagulated 5. Diabetes mellitus 6. Hyperlipidemia Plan: Decrease toprol to 50 mg daily. Increase activity and ambulation. Stable for discharge to follow up with Dr. Rucker in 1-2 weeks. 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 Patient was seen and examined. Objective - Vital Signs Vital signs: Vital Signs Temp 97.5 F L 05/24/21 07:06 Pulse 70 05/24/21 09:13 Resp 17 05/24/21 07:06 BP 97/57 05/24/21 09:13 Pulse Ox 96 05/24/21 07:06 Intake & Output 05/23/21 05/24/21 05/24/21 18:59 06:59 18:59 Other: Voiding Method Toilet Toilet Toilet # Voids 2 1 - Labs CBC & Chem 7: 05/21/21 18:57 05/24/21 05:10 Labs: Abnormal Lab Results - Last 24 Hours (Table) 05/23/21 05/23/21 05/23/21 Range/Units 11:30 16:25 20:03 PT (9.0-12.0) sec INR (<1.2) BUN (7-17) mg/dL Creatinine (0.52-1.04) mg/dL POC Glucose (mg/dL) 201 H 121 H 115 H (75-99) mg/dL 05/24/21 05/24/21 05/24/21 Range/Units 02:15 05:10 05:10 PT 17.2 H (9.0-12.0) sec INR 1.7 H (<1.2) BUN 46 H (7-17) mg/dL Creatinine 1.71 H (0.52-1.04) mg/dL POC Glucose (mg/dL) 111 H (75-99) mg/dL 05/24/21 Range/Units 06:43 PT (9.0-12.0) sec INR (<1.2) BUN (7-17) mg/dL Creatinine (0.52-1.04) mg/dL POC Glucose (mg/dL) 105 H (75-99) mg/dL Microbiology - Last 24 Hours (Table) 05/22/21 08:45 Acid Fast Bacilli Smear - Final Pleural Fluid Acid Fast Bacilli Culture - Preliminary 05/22/21 12:00 Gram Stain - Preliminary Pleural Fluid Body Fluid Culture - Preliminary
[2021-05-24 11:05] LABS: Glucose,Whole Blood 229 mg/dL (75-99)
--- NOTE | 2021-05-24 12:15 | P.PN ---
Subjective Progress Note Date: 05/24/21 HISTORY OF PRESENT ILLNESS This is an 86-year-old female patient of Dr. Solomon and Dr. Rucker with past medical history of nonischemic cardiomyopathy status post IV ICD, chronic persistent atrial fibrillation on long-term anticoagulation with Coumadin, mitral regurgitation, chronic systolic heart failure, hypertension, hyperlipidemia, diabetes mellitus type 2, chronic kidney disease stage IV, rosacea. She had a recent hospitalization and discharge home on 05/08, treated for acute exacerbation of systolic heart failure with EF of 30-35%, right pleural effusion status post right-sided thoracentesis 05/06. Patient was discharged home in stable condition. She has had a follow-up appointment in the office. She now presents to emergency center after she developed shortness of breath for the past 2 nights and progressively worsening. Patient was found to be afebrile, heart rate 70, blood pressure 104/65, pulse ox 96%. EKG is atrial fibrillation with ventricular pacing. CBC unremarkable. BUN 34 creatinine 1.62, CO2 31, blood sugar 130. INR 1.7. Troponin negative 1. AST 41 otherwise liver function tests were normal. ProBNP 10,800. Rotavirus PCR not detected. Influenza A and influenza B not detected. Chest x-ray reveals interval increase in right pleural effusion now moderate to large in size. Ultrasound of the chest revealed moderate size right pleural effusion 12.7 cm pocket, no significant left-sided pleural effusion 2.6 cm. Patient has been seen by cardiology with recommendations to continue IV diuretics, thoracentesis, evaluate for possible mitral valve clip as an outpatient. Pulmonary medicine performed thoracentesis on the right with 1.5 L of yellow fluid removed. Repeat chest x-ray reveals improved right sided pleural effusion. 05/23: Patient had thoracentesis yesterday for 1500 mL of fluid removed, repeat chest x-ray still reveal right-sided smaller pleural effusion, his INR is 1.9 patient warfarin was resumed this point still on potassium replacement therapy, creatinine still at 1.64 watching her kidney functioncarefully, blood pressure was significantly low today and patient still require and Crestor along with Toprol-XL 100 mg a day, Toprol was switched to nighttime and Trester will be giving the patient be started on midodrine 5 mg 3 times a day to be held if systolic blood pressures above 1:30. Patient is remain on O2 and has O2 only at nighttime at home. The patient is doing well there is a potential home tomorrow. 05/24: Since her thoracentesis doing much better so far, repeat chest x-ray showed slight accumulation on pleural fluid but not bad that's require any intervention at this point. Midodrine 5 g 3 times a day her blood pressure remained around 100 systolic patient is able to ambulate and walk with no major problem. Hopefully will be able to send her home today to follow up in the office in the next few days and patient will follow-up with [facility]. REVIEW OF SYSTEMS Constitutional: No fever, no chills, no night sweats. Reports weight change. No weakness, reports fatigue no lethargy. No daytime sleepiness. EENT: No headache. No blurred vision or double vision, no loss of vision. No loss of Hearing, no ringing in the ears, no dizziness. No nasal drainage or congestion. No epistaxis. No sore throat. Lungs: Reports shortness of breath, no cough, no sputum production. No wheezing. Cardiovascular: No chest pain, no lower extremity edema. No palpitations. No paroxysmal nocturnal dyspnea. Reports orthopnea. No lightheadedness or dizziness. No syncopal episodes. Abdominal: No abdominal pain. No nausea, vomiting. No diarrhea. No cons tipation. No bloody or tarry stools.. No loss of appetite. Genitourinary: No dysuria, increased frequency, urgency. No urinary retention. Musculoskeletal: No myalgias. No muscle weakness, no gait dysfunction, no frequent falls. No back pain. No neck pain. Integumentary: No wounds, no lesions. No rash or pruritus. No unusual bruising. No change in hair or nails. Neurologic: No aphasia. No facial droop. No change in mentation. No head injury. No headache. No paralysis. No paresthesia. Psychiatric: No depression. No anxiety. No mood swings. Endocrine: No abnormal blood sugars. Reports weight change. No excessive sweating or thirst. No cold intolerance. PHYSICAL EXAMINATION Gen: This is an 86-year-old female. She is resting in bed and appears to be comfortable and in no acute distress. HEENT: Head is atraumatic, normocephalic. Pupils equal, round. Sclerae is anicteric. NECK: Supple. No JVD. No lymphadenopathy. No thyromegaly. LUNGS: Diminished to the bilateral bases, greater on the right. No intercostal retractions. HEART: Irregularly irregular rhythm with systolic murmur. ABDOMEN: Soft. Bowel sounds are present. No masses. No tenderness. EXTREMITIES: No pedal edema. No calf tenderness. NEUROLOGICAL: Patient is awake, alert and oriented x3. Cranial nerves 2 through 12 are grossly intact. ASSESSMENT AND PLAN 1. Acute respiratory distress secondary to large recurrent right pleural effusion and chronic systolic heart failure. Patient is status post right-sided thoracentesis of 1500 ML's of yellow fluid. Continue medical management patient might require thoracentesis to be draining again in 2 weeks. 2. Nonischemic cardiomyopathy status post AICD and chronic systolic heart failure. Continue Lasix from home, continue metoprolol, Aldactone 25 mg daily, Entresto 24/26 milligrams twice daily.his blood pressure is holding low at this point. 3. Hypertension. still on metoprolol and Entresto but blood pressures quite a bit low at this point to start midodrine 5 mg 3 times a day. Her Toprol-XL was changed to 50 mg at nighttime only. 4. Severe mitral regurgitation. no surgical intervention be done. 5. Chronic persistent atrial fibrillation on Coumadin. Patient will be resumed on Coumadin tonight. Continue amiodarone 200 mg daily, Toprol-XL 100 mg daily. 6. Hyperlipidemia. Continue atorvastatin 10 mg at bedtime. 7. Diabetes mellitus type 2. Continue glipizide 5 mg twice daily, NovoLog scale before meals and at bedtime. 8. Hypothyroidism. Continue levothyroxine 25 mg daily. 9 hypotension: Start patient on midodrine 5 mg 3 times a day. Seems to be doing well. 10 stage III a chronic kidney disease: Most likely worsening with medication at this point continue conservative management and watch BUN/creatinine tomorrow. CODE STATUS: Full code. Discharge expectation: Patient be discharged home today.. Objective - Vital Signs Vital signs: Vital Signs Temp 97.5 F L 05/24/21 07:06 Pulse 70 05/24/21 09:13 Resp 17 05/24/21 07:06 BP 97/57 05/24/21 09:13 Pulse Ox 96 05/24/21 07:06 Intake & Output 05/23/21 05/24/21 05/24/21 18:59 06:59 18:59 Other: Voiding Method Toilet Toilet Toilet # Voids 2 1 - Labs CBC & Chem 7: 05/21/21 18:57 05/24/21 05:10 Labs: Abnormal Lab Results - Last 24 Hours (Table) 05/23/21 05/23/21 05/24/21 Range/Units 16:25 20:03 02:15 PT (9.0-12.0) sec INR (<1.2) BUN (7-17) mg/dL Creatinine (0.52-1.04) mg/dL POC Glucose (mg/dL) 121 H 115 H 111 H (75-99) mg/dL 05/24/21 05/24/21 05/24/21 Range/Units 05:10 05:10 06:43 PT 17.2 H (9.0-12.0) sec INR 1.7 H (<1.2) BUN 46 H (7-17) mg/dL Creatinine 1.71 H (0.52-1.04) mg/dL POC Glucose (mg/dL) 105 H (75-99) mg/dL 05/24/21 Range/Units 11:02 PT (9.0-12.0) sec INR (<1.2) BUN (7-17) mg/dL Creatinine (0.52-1.04) mg/dL POC Glucose (mg/dL) 229 H (75-99) mg/dL Microbiology - Last 24 Hours (Table) 05/22/21 08:45 Acid Fast Bacilli Smear - Final Pleural Fluid Acid Fast Bacilli Culture - Preliminary 05/22/21 12:00 Gram Stain - Preliminary Pleural Fluid Body Fluid Culture - Preliminary
--- NOTE | 2021-05-24 12:18 | P.DS ---
Providers Date of admission: 05/21/21 20:46 Attending physician: Alberto Solomon Consults: 05/21/21 20:39 Consult Physician Urgent Consulting Provider: Ivan Rucker Consult Reason/Comments: Dyspnea, pleural effusion Do you want consulting provider notified?: Yes 05/21/21 20:40 Consult Physician Urgent Consulting Provider: Duke Harry Consult Reason/Comments: Right pleural effusion Do you want consulting provider notified?: Yes Primary care physician: Alberto Solomon [facility] Course: HISTORY OF PRESENT ILLNESS This is an 86-year-old female patient of Dr. Solomon and Dr. Rucker with past medical history of nonischemic cardiomyopathy status post IV ICD, chronic persistent atrial fibrillation on long-term anticoagulation with Coumadin, mitral regurgitation, chronic systolic heart failure, hypertension, hyperlipidemia, diabetes mellitus type 2, chronic kidney disease stage IV, rosacea. She had a recent hospitalization and discharge home on 05/08, treated for acute exacerbation of systolic heart failure with EF of 30-35%, right pleural effusion status post right-sided thoracentesis 05/06. Patient was discharged home in stable condition. She has had a follow-up appointment in the office. She now presents to emergency center after she developed shortness of breath for the past 2 nights and progressively worsening. Patient was found to be afebrile, heart rate 70, blood pressure 104/65, pulse ox 96%. EKG is atrial fibrillation with ventricular pacing. CBC unremarkable. BUN 34 creatinine 1.62, CO2 31, blood sugar 130. INR 1.7. Troponin negative 1. AST 41 otherwise liver function tests were normal. ProBNP 10,800. Rotavirus PCR not detected. Influenza A and influenza B not detected. Chest x-ray reveals interval increase in right pleural effusion now moderate to large in size. Ultrasound of the chest revealed moderate size right pleural effusion 12.7 cm pocket, no significant left-sided pleural effusion 2.6 cm. Patient has been seen by cardiology with recommendations to continue IV diuretics, thoracentesis, evaluate for possible mitral valve clip as an outpatient. Pulmonary medicine performed thoracentesis on the right with 1.5 L of yellow fluid removed. Repeat chest x-ray reveals improved right sided pleural effusion. 05/23: Patient had thoracentesis yesterday for 1500 mL of fluid removed, repeat chest x-ray still reveal right-sided smaller pleural effusion, his INR is 1.9 patient warfarin was resumed this point still on potassium replacement therapy, creatinine still at 1.64 watching her kidney functioncarefully, blood pressure was significantly low today and patient still require and Crestor along with Toprol-XL 100 mg a day, Toprol was switched to nighttime and Trester will be giving the patient be started on midodrine 5 mg 3 times a day to be held if systolic blood pressures above 1:30. Patient is remain on O2 and has O2 only at nighttime at home. The patient is doing well there is a potential home tomorrow. 05/24: Since her thoracentesis doing much better so far, repeat chest x-ray showed slight accumulation on pleural fluid but not bad that's require any intervention at this point. Midodrine 5 g 3 times a day her blood pressure remained around 100 systolic patient is able to ambulate and walk with no major problem. Hopefully will be able to send her home today to follow up in the office in the next few days and patient will follow-up with palliative snf care. REVIEW OF SYSTEMS Constitutional: No fever, no chills, no night sweats. Reports weight change. No weakness, reports fatigue no lethargy. No daytime sleepiness. EENT: No headache. No blurred vision or double vision, no loss of vision. No loss of Hearing, no ringing in the ears, no dizziness. No nasal drainage or congestion. No epistaxis. No sore throat. Lungs: Reports shortness of breath, no cough, no sputum production. No wheezing. Cardiovascular: No chest pain, no lower extremity edema. No palpitations. No paroxysmal nocturnal dyspnea. Reports orthopnea. No lightheadedness or dizziness. No syncopal episodes. Abdominal: No abdominal pain. No nausea, vomiting. No diarrhea. No constipat ion. No bloody or tarry stools.. No loss of appetite. Genitourinary: No dysuria, increased frequency, urgency. No urinary retention. Musculoskeletal: No myalgias. No muscle weakness, no gait dysfunction, no frequent falls. No back pain. No neck pain. Integumentary: No wounds, no lesions. No rash or pruritus. No unusual bruising. No change in hair or nails. Neurologic: No aphasia. No facial droop. No change in mentation. No head injury. No headache. No paralysis. No paresthesia. Psychiatric: No depression. No anxiety. No mood swings. Endocrine: No abnormal blood sugars. Reports weight change. No excessive sweating or thirst. No cold intolerance. PHYSICAL EXAMINATION Gen: This is an 86-year-old female. She is resting in bed and appears to be comfortable and in no acute distress. HEENT: Head is atraumatic, normocephalic. Pupils equal, round. Sclerae is anicteric. NECK: Supple. No JVD. No lymphadenopathy. No thyromegaly. LUNGS: Diminished to the bilateral bases, greater on the right. No intercostal retractions. HEART: Irregularly irregular rhythm with systolic murmur. ABDOMEN: Soft. Bowel sounds are present. No masses. No tenderness. EXTREMITIES: No pedal edema. No calf tenderness. NEUROLOGICAL: Patient is awake, alert and oriented x3. Cranial nerves 2 through 12 are grossly intact. ASSESSMENT AND PLAN 1. Acute respiratory distress secondary to large recurrent right pleural effusion and chronic systolic heart failure. Patient is status post right-sided thoracentesis of 1500 ML's of yellow fluid. Continue medical management patient might require thoracentesis to be draining again in 2 weeks. 2. Nonischemic cardiomyopathy status post AICD and chronic systolic heart failure. Continue Lasix from home, continue metoprolol, Aldactone 25 mg daily, Entresto 24/26 milligrams twice daily.his blood pressure is holding low at this point. 3. Hypertension. still on metoprolol and Entresto but blood pressures quite a bit low at this point to start midodrine 5 mg 3 times a day. Her Toprol-XL was changed to 50 mg at nighttime only. 4. Severe mitral regurgitation. no surgical intervention be done. 5. Chronic persistent atrial fibrillation on Coumadin. Patient will be resumed on Coumadin tonight. Continue amiodarone 200 mg daily, Toprol-XL 100 mg daily. 6. Hyperlipidemia. Continue atorvastatin 10 mg at bedtime. 7. Diabetes mellitus type 2. Continue glipizide 5 mg twice daily, NovoLog scale before meals and at bedtime. 8. Hypothyroidism. Continue levothyroxine 25 mg daily. 9 hypotension: Start patient on midodrine 5 mg 3 times a day. Seems to be doing well. 10 stage III a chronic kidney disease: Most likely worsening with medication at this point continue conservative management and watch BUN/creatinine tomorrow. CODE STATUS: Full code. Discharge expectation: Patient be discharged home today. Hospital course: Patient had thoracentesis for 1500 mL of pleural fluid was drained and she felt much better on it. Continue to have significant hypertension midodrine was started control her blood pressure much better so far also made an adjustment on her Toprol-XL to 50 mg of 100 and to do it mostly at nighttime. Patient feeling very comfortable to go home today the plan when the fluid acumen late next time to do pigtailed valve can be done by interventional radiology. Family were at the bedside all their questions were answered the time. Patient Condition at Discharge: Fair Plan - Discharge Summary Discharge Rx Participant: No New Discharge Prescriptions: New Metoprolol Succinate (ER) [Toprol XL] 50 mg PO HS Midodrine [ProAmatine] 5 mg PO AC-TID #90 tab Continue Simvastatin [Zocor] 20 mg PO HS@2100 Magnesium Chloride [Mag64] 64 mg PO DAILY@0700 Amiodarone [Cordarone] 200 mg PO DAILY@0900 Levothyroxine Sodium [Synthroid] 25 mcg PO DAILY@0700 Warfarin [Coumadin] 1 mg PO SUTUTH@2100 Warfarin [Coumadin] 1.5 mg PO MOWEFRSA@2100 calcium polycarbophiL [Fibercon] 625 mg PO DAILY PRN PRN Reason: Constipation Loperamide [Imodium] 2 mg PO BID@0900,2100 Triamcinolone 0.1% Ointment [Kenalog 0.1% Ointment] 1 applic TOPICAL DAILY@0900 Sacubitril/Valsartan [Entresto 24 mg-26 mg Tablet] 1 tab PO BID@0900,2099 glipiZIDE [Glucotrol] 5 mg PO BID@0900,2100 Cetirizine HCl 10 mg PO DAILY PRN PRN Reason: Allergy Symptoms Spironolactone [Aldactone] 25 mg PO DAILY@0900 Furosemide [Lasix] 40 mg PO BID@0900,1600 Discontinued Metoprolol Succinate [Toprol XL] 100 mg PO DAILY@0900 Discharge Medication List Magnesium Chloride [Mag64] 64 mg PO DAILY@0700 10/22/15 [History] Simvastatin [Zocor] 20 mg PO HS@2100 10/22/15 [History] Amiodarone [Cordarone] 200 mg PO DAILY@0900 11/24/15 [History] Levothyroxine Sodium [Synthroid] 25 mcg PO DAILY@0703/30/18 [History] Warfarin [Coumadin] 1 mg PO SUTUTH@209903/30/18 [History] Warfarin [Coumadin] 1.5 mg PO MOWEFRSA@209903/30/18 [History] calcium polycarbophiL [Fibercon] 625 mg PO DAILY PRN 11/19/18 [History] Cetirizine HCl 10 mg PO DAILY PRN 11/21/20 [History] glipiZIDE [Glucotrol] 5 mg PO BID@0900,209911/21/20 [History] Loperamide [Imodium] 2 mg PO BID@0900,209904/29/21 [History] Triamcinolone 0.1% Ointment [Kenalog 0.1% Ointment] 1 applic TOPICAL DAILY@0904/29/21 [History] Furosemide [Lasix] 40 mg PO BID@0900,1600 05/21/21 [History] Sacubitril/Valsartan [Entresto 24 mg-26 mg Tablet] 1 tab PO BID@0900,209905/21/21 [History] Spironolactone [Aldactone] 25 mg PO DAILY@89905/21/21 [History] Metoprolol Succinate (ER) [Toprol XL] 50 mg PO HS 05/24/21 [Rx] Midodrine [ProAmatine] 5 mg PO AC-TID #90 tab 05/24/21 [Rx] Follow up Appointment(s)/Referral(s): Alberto Solomon MD [Primary Care Provider] - 1-2 days [facility], [NON-STAFF] - As Needed Care,[facility] [NON-STAFF] - As Needed Ivan Rucker MD [STAFF PHYSICIAN] - 1 Week Discharge Disposition: HOME WITH HOME HEALTH SERVICES
[2021-05-24] MEDS ORDERED: WARFARIN 2.5 MG TAB PO ONE (18:00)
[2021-05-24] MEDS ORDERED: WARFARIN 1 MG TAB PO SCH (21:00)
[2021-05-24] MEDS ORDERED: METOPROLOL SUCCINATE (ER) 50 MG TAB.ER.24H PO SCH (21:00)
== END 2021-05-24 14:55 | disposition home health service (06) | DRG 291 ==
LOC: EC 16:36 → 4SSUR 20:46
PROVIDERS: ADMIT Internal Medicine Geriatric Medicine; ATTEND Internal Medicine Geriatric Medicine
PROC: 0W993ZZ Drainage of Right Pleural Cavity, Percutaneous Approach (ICD-10-PCS; principal; 2021-05-22)
DX: I13.0 Hypertensive heart and chronic kidney disease with heart failure and stage 1 through stage 4 chronic kidney disease, or unspecified chronic kidney disease (principal); I50.23 Acute on chronic systolic (congestive) heart failure; I48.19 Other persistent atrial fibrillation; N18.4 Chronic kidney disease, stage 4 (severe); J90 Pleural effusion, not elsewhere classified; I34.0 Nonrheumatic mitral (valve) insufficiency; I42.8 Other cardiomyopathies; E03.9 Hypothyroidism, unspecified; E11.22 Type 2 diabetes mellitus with diabetic chronic kidney disease; E78.5 Hyperlipidemia, unspecified; L71.9 Rosacea, unspecified; Z90.89 Acquired absence of other organs; Z98.890 Other specified postprocedural states; R06.03 Acute respiratory distress; Z79.01 Long term (current) use of anticoagulants; Z79.84 Long term (current) use of oral hypoglycemic drugs; Z79.890 Hormone replacement therapy; Z79.899 Other long term (current) drug therapy; Z80.3 Family history of malignant neoplasm of breast; Z80.51 Family history of malignant neoplasm of kidney; Z80.8 Family history of malignant neoplasm of other organs or systems; Z82.0 Family history of epilepsy and other diseases of the nervous system; Z82.5 Family history of asthma and other chronic lower respiratory diseases; Z85.828 Personal history of other malignant neoplasm of skin; Z90.710 Acquired absence of both cervix and uterus; Z95.810 Presence of automatic (implantable) cardiac defibrillator; Z90.49 Acquired absence of other specified parts of digestive tract; Z98.51 Tubal ligation status; Z83.2 Family history of diseases of the blood and blood-forming organs and certain disorders involving the immune mechanism
CPT/HCPCS: 36415; 71045; 71046; 76604; 80048; 80053; 82945; 83615; 83880; 84155; 84157; 84484; 85025; 85610; 85730; 87070; 87102; 87116; 87205; 87206; 87252; 87496; 87498; 87502; 87529; 87634; 87635; 87798; 88108; 88305; 88341; 88342; 89050; 93005; 99285

== ENCOUNTER 2021-06-22 14:42 | Inpatient (IN) | payer MEDICARE, BC ==
--- NOTE | 2021-06-22 16:53 | ED ---
General Adult HPI - General Chief complaint: Recheck/Abnormal Lab/Rx Stated complaint: Low BP, Vomiting, Weakness Time Seen by Provider: 06/22/21 16:52 Source: patient Mode of arrival: wheelchair Limitations: no limitations - History of Present Illness Initial comments: 86-year-old female past medical history of A. fib on Coumadin, nonischemic cardiomyopathy, valvular disease, congestive heart failure, diabetes mellitus presents to the emergency department with nausea, vomiting and weakness. She reports that the symptoms have been present for the past several months. She states this is her fifth visit in the past 6 months. She reports to exertional shortness of breath and makes her feel weak and nauseated. She has had a very poor appetite and has had some nausea. She denies chest pain, fevers or cough. Denies any abdominal pain. States that she had a thoracentesis on 05/23. Patient concerned about reaccumulation of the fluid. Denies black or bloody stools. No diarrhea. No other alleviating, precipitating modifying factors - Related Data Home Medications Medication Instructions Recorded Confirmed Magnesium Chloride [Mag64] 64 mg PO DAILY@0710/22/15 06/22/21 Simvastatin [Zocor] 20 mg PO HS@209910/22/15 06/22/21 Amiodarone [Cordarone] 200 mg PO DAILY@0911/24/15 06/22/21 Levothyroxine Sodium [Synthroid] 25 mcg PO DAILY@0700 03/30/18 06/22/21 Warfarin [Coumadin] 1 mg PO SUTUTH@209903/30/18 06/22/21 Warfarin [Coumadin] 1.5 mg PO MOWEFRSA@209903/30/18 06/22/21 calcium polycarbophiL [Fibercon] 625 mg PO DAILY PRN 11/19/18 06/22/21 Cetirizine HCl 10 mg PO DAILY PRN 11/21/20 06/22/21 glipiZIDE [Glucotrol] 5 mg PO BID@09,209911/21/20 06/22/21 Loperamide [Imodium] 2 mg PO BID@0900,209904/29/21 06/22/21 Triamcinolone 0.1% Ointment 1 applic TOPICAL DAILY@89904/29/21 06/22/21 [Kenalog 0.1% Ointment] Furosemide [Lasix] 40 mg PO BID@0900,1600 05/21/21 06/22/21 Sacubitril/Valsartan [Entresto 24 1 tab PO BID@0900,2100 05/21/21 06/22/21 mg-26 mg Tablet] Spironolactone [Aldactone] 25 mg PO DAILY@0900 05/21/21 06/22/21 Metoprolol Succinate [Toprol XL] 100 mg PO HS@209906/22/21 06/22/21 Midodrine HCl [ProAmatine] 10 mg PO TID-W/MEALS 06/22/21 06/22/21 metOLazone 2.5 mg PO MOTH@159906/22/21 06/22/21 Allergies Allergy/AdvReac Type Severity Reaction Status Date / Time quinidine Allergy Rash/Hives Verified 06/22/21 18:02 CLEAR PLASTIC TAPE Allergy Rash/Hives Uncoded 06/22/21 16:36 Review of Systems ROS Statement: Those systems with pertinent positive or pertinent negative responses have been documented in the HPI. ROS Other: All systems not noted in ROS Statement are negative. Past Medical History Past Medical History: Cancer, Heart Failure, Diabetes Mellitus, Hyperlipidemia, Osteoarthritis (OA), Skin Disorder, Vascular Disorder Additional Past Medical History / Comment(s): basal cell skin cancer, rash on face, History of Any Multi-Drug Resistant Organisms: None Reported Past Surgical History: AICD, Appendectomy, Bladder Surgery, Bowel Resection, Cholecystectomy, Heart Catheterization, Hysterectomy, Tonsillectomy, Tubal Ligation Additional Past Surgical History / Comment(s): venogram/fluoroscopy, neema cataracts, Past Anesthesia/Blood Transfusion Reactions: No Reported Reaction Type of Cardiac Device: AICD Device Placement Date:: 2007 Past Psychological History: No Psychological Hx Reported Smoking Status: Never smoker Past Alcohol Use History: None Reported Past Drug Use History: None Reported - Past Family History Father Family Medical History: Cancer Mother Family Medical History: Cancer Sister(s) Family Medical History: Cancer, Deep Vein Thrombosis (DVT) Additional Family Medical History / Comment(s): skin cancer Brother(s) History Unknown: Yes Family Medical History: Cancer Additional Family Medical History / Comment(s): skin cancer General Exam Limitations: no limitations General appearance: alert, in no apparent distress Head exam: Present: atraumatic, normocephalic, normal inspection Eye exam: Present: normal appearance, PERRL, EOMI. Absent: scleral icterus, conjunctival injection, periorbital swelling ENT exam: Present: mucous membranes dry Neck exam: Present: normal inspection. Absent: tenderness, meningismus, lymphadenopathy Respiratory exam: Present: normal lung sounds bilaterally. Absent: respiratory distress, wheezes, rales, rhonchi, stridor Cardiovascular Exam: Present: regular rate, normal rhythm, normal heart sounds. Absent: systolic murmur, diastolic murmur, rubs, gallop, clicks GI/Abdominal exam: Present: soft, normal bowel sounds. Absent: distended, tenderness, guarding, rebound, rigid Extremities exam: Present: normal inspection, full ROM, normal capillary refill. Absent: tenderness, pedal edema, joint swelling, calf tenderness Back exam: Present: normal inspection Neurological exam: Present: alert, oriented X3, CN II-XII intact Psychiatric exam: Present: normal affect, normal mood Skin exam: Present: warm, dry, intact, normal color. Absent: rash Course Vital Signs 06/22/21 06/22/21 06/22/21 16:36 16:56 17:36 Temperature 98.5 F Pulse Rate 70 74 70 Respiratory 16 16 12 Rate Blood Pressure 71/53 88/54 86/51 O2 Sat by Pulse 99 95 97 Oximetry 06/22/21 06/22/21 06/22/21 18:00 18:56 19:19 Temperature Pulse Rate 65 70 70 Respiratory 18 10 L 17 Rate Blood Pressure 74/45 83/50 O2 Sat by Pulse 99 96 Oximetry 06/22/21 06/22/21 06/22/21 20:25 22:09 23:00 Temperature Pulse Rate 69 76 76 Respiratory 12 21 12 Rate Blood Pressure 89/50 70/44 115/45 O2 Sat by Pulse 98 Oximetry 06/23/21 06/23/21 06/23/21 00:05 01:00 04:06 Temperature Pulse Rate 70 70 71 Respiratory 17 19 14 Rate Blood Pressure 74/43 80/48 85/55 O2 Sat by Pulse 94 L 95 95 Oximetry 06/23/21 06/23/21 06/23/21 06:43 07:00 07:23 Temperature Pulse Rate 69 70 73 Respiratory 19 13 16 Rate Blood Pressure 77/46 84/45 85/50 O2 Sat by Pulse 100 96 96 Oximetry 06/23/21 06/23/21 06/23/21 08:44 09:45 10:44 Temperature Pulse Rate 70 70 72 Respiratory 18 18 18 Rate Blood Pressure 88/48 98/56 103/58 O2 Sat by Pulse 94 L 96 98 Oximetry 06/23/21 13:00 Temperature Pulse Rate 77 Respiratory 18 Rate Blood Pressure 92/54 O2 Sat by Pulse 98 Oximetry EKG Findings - EKG Comments: EKG Findings:: EKG demonstrates electronic pacemaker. Rate of 72. NC interval 74. QRS 184. QTC of 526. Pacemaker captures appropriately. No acute ST segment elevation Medical Decision Making - Medical Decision Making Arrival patient is placed into trauma 1. A thorough history and physical exam is performed. Patient's blood pressure upon arrival is 71/53. IV is established laboratory studies were conducted. She was given a 500 fluid bolus. Labs are reviewed. INR 2.4. Creatinine is up to 3.3. Normal is usually around 1.6. Urinalysis demonstrates rare white blood cell clumps a 45 white blood cells. Influenza is not detected. Dose of Rocephin is ordered. She is given her nighttime dose of Midrin. Patient does have improvement in her blood pressures up to 90 systolic. Trending the patient's blood pressures from previous admissions this is where her normal blood pressure sits. Spoke with the patient in regards to admission for which she did agree to. Patient is a DO NOT RESUSCITATE. Spoke with Dr. Solomon who agreed to admit the patient. Nephrology and cardiology consultation. - Lab Data Result diagrams: 06/23/21 08:23 06/24/21 06:46 Lab Results 06/22/21 06/22/21 06/22/21 Range/Units 17:10 17:10 17:10 WBC 7.9 (3.8-10.6) k/uL RBC 5.38 (3.80-5.40) m/uL Hgb 17.0 H (11.4-16.0) gm/dL Hct 51.1 H (34.0-46.0) % MCV 95.1 (80.0-100.0) fL MCH 31.6 (25.0-35.0) pg MCHC 33.2 (31.0-37.0) g/dL RDW 14.1 (11.5-15.5) % Plt Count 200 (150-450) k/uL MPV 8.6 Neutrophils % 74 % Lymphocytes % 19 % Monocytes % 5 % Eosinophils % 0 % Basophils % 0 % Neutrophils # 5.8 (1.3-7.7) k/uL Lymphocytes # 1.5 (1.0-4.8) k/uL Monocytes # 0.4 (0-1.0) k/uL Eosinophils # 0.0 (0-0.7) k/uL Basophils # 0.0 (0-0.2) k/uL PT 24.3 H (9.0-12.0) sec INR 2.4 H (<1.2) APTT 30.7 H (22.0-30.0) sec Sodium 138 (137-145) mmol/L Potassium 3.7 (3.5-5.1) mmol/L Chloride 94 L (98-107) mmol/L Carbon Dioxide 27 (22-30) mmol/L Anion Gap 17 mmol/L BUN 135 H* (7-17) mg/dL Creatinine 3.37 H (0.52-1.04) mg/dL Est GFR (CKD-EPI)AfAm 13 (>60 ml/min/1.73 sqM) Est GFR (CKD-EPI)NonAf 12 (>60 ml/min/1.73 sqM) Glucose 154 H (74-99) mg/dL Plasma Lactic Acid Alex (0.7-2.0) mmol/L Calcium 9.6 (8.4-10.2) mg/dL Magnesium 2.9 H (1.6-2.3) mg/dL Total Bilirubin 1.3 (0.2-1.3) mg/dL AST 90 H (14-36) U/L ALT 82 H (4-34) U/L Alkaline Phosphatase 79 (38-126) U/L Troponin I (0.000-0.034) ng/mL NT-Pro-B Natriuret Pep pg/mL Total Protein 8.1 (6.3-8.2) g/dL Albumin 4.9 (3.5-5.0) g/dL Influenza Type A RNA (Not Detectd) Influenza Type B (PCR) (Not Detectd) 06/22/21 06/22/21 06/22/21 Range/Units 17:10 17:10 17:10 WBC (3.8-10.6) k/uL RBC (3.80-5.40) m/uL Hgb (11.4-16.0) gm/dL Hct (34.0-46.0) % MCV (80.0-100.0) fL MCH (25.0-35.0) pg MCHC (31.0-37.0) g/dL RDW (11.5-15.5) % Plt Count (150-450) k/uL MPV Neutrophils % % Lymphocytes % % Monocytes % % Eosinophils % % Basophils % % Neutrophils # (1.3-7.7) k/uL Lymphocytes # (1.0-4.8) k/uL Monocytes # (0-1.0) k/uL Eosinophils # (0-0.7) k/uL Basophils # (0-0.2) k/uL PT (9.0-12.0) sec INR (<1.2) APTT (22.0-30.0) sec Sodium (137-145) mmol/L Potassium (3.5-5.1) mmol/L Chloride (98-107) mmol/L Carbon Dioxide (22-30) mmol/L Anion Gap mmol/L BUN (7-17) mg/dL Creatinine (0.52-1.04) mg/dL Est GFR (CKD-EPI)AfAm (>60 ml/min/1.73 sqM) Est GFR (CKD-EPI)NonAf (>60 ml/min/1.73 sqM) Glucose (74-99) mg/dL Plasma Lactic Acid Alex 1.4 (0.7-2.0) mmol/L Calcium (8.4-10.2) mg/dL Magnesium (1.6-2.3) mg/dL Total Bilirubin (0.2-1.3) mg/dL AST (14-36) U/L ALT (4-34) U/L Alkaline Phosphatase (38-126) U/L Troponin I <0.012 (0.000-0.034) ng/mL NT-Pro-B Natriuret Pep 5740 pg/mL Total Protein (6.3-8.2) g/dL Albumin (3.5-5.0) g/dL Influenza Type A RNA (Not Detectd) Influenza Type B (PCR) (Not Detectd) 06/22/21 Range/Units 18:58 WBC (3.8-10.6) k/uL RBC (3.80-5.40) m/uL Hgb (11.4-16.0) gm/dL Hct (34.0-46.0) % MCV (80.0-100.0) fL MCH (25.0-35.0) pg MCHC (31.0-37.0) g/dL RDW (11.5-15.5) % Plt Count (150-450) k/uL MPV Neutrophils % % Lymphocytes % % Monocytes % % Eosinophils % % Basophils % % Neutrophils # (1.3-7.7) k/uL Lymphocytes # (1.0-4.8) k/uL Monocytes # (0-1.0) k/uL Eosinophils # (0-0.7) k/uL Basophils # (0-0.2) k/uL PT (9.0-12.0) sec INR (<1.2) APTT (22.0-30.0) sec Sodium (137-145) mmol/L Potassium (3.5-5.1) mmol/L Chloride (98-107) mmol/L Carbon Dioxide (22-30) mmol/L Anion Gap mmol/L BUN (7-17) mg/dL Creatinine (0.52-1.04) mg/dL Est GFR (CKD-EPI)AfAm (>60 ml/min/1.73 sqM) Est GFR (CKD-EPI)NonAf (>60 ml/min/1.73 sqM) Glucose (74-99) mg/dL Plasma Lactic Acid Alex (0.7-2.0) mmol/L Calcium (8.4-10.2) mg/dL Magnesium (1.6-2.3) mg/dL Total Bilirubin (0.2-1.3) mg/dL AST (14-36) U/L ALT (4-34) U/L Alkaline Phosphatase (38-126) U/L Troponin I (0.000-0.034) ng/mL NT-Pro-B Natriuret Pep pg/mL Total Protein (6.3-8.2) g/dL Albumin (3.5-5.0) g/dL Influenza Type A RNA Not Detected (Not Detectd) Influenza Type B (PCR) Not Detected (Not Detectd) Disposition Clinical Impression: JUSTIN (acute kidney injury), Hypotension Disposition: ADMITTED IP TO THIS HOSP Condition: Stable Is patient prescribed a controlled substance at d/c from ED?: No Time of Disposition: 20:16 Decision to Admit Reason: Admit from EC Decision Date: 06/22/21 Decision Time: 20:16
[2021-06-22] MEDS ORDERED: SODIUM CHLORIDE 0.9% 1,000 ML IV STA (17:07)
[2021-06-22 17:33] LABS: INR 2.4 (<1.2); Partial Thromboplastin Time 30.7 sec (22.0-30.0); Prothrombin Time 24.3 sec (9.0-12.0)
[2021-06-22 17:35] LABS: Basophils % (A) 0 %; Eosinophils % (A) 0 %; HCT 51.1 % (34.0-46.0); Lymphocytes # (A) 1.5 k/uL (1.0-4.8); Lymphocytes % (A) 19 %; MCH 31.6 pg (25.0-35.0); MCHC 33.2 g/dL (31.0-37.0); MCV 95.1 fL (80.0-100.0); Mean Platelet Volume 8.6; Monocytes # (A) 0.4 k/uL (0-1.0); Monocytes % (A) 5 %; Neutrophils # (A) 5.8 k/uL (1.3-7.7); Neutrophils % (A) 74 %; Platelet Count 200 k/uL (150-450); RBC 5.38 m/uL (3.80-5.40); RDW 14.1 % (11.5-15.5); WBC 7.9 k/uL (3.8-10.6)
--- NOTE | 2021-06-22 17:50 | XR ---
EXAMINATION TYPE: XR chest 2V DATE OF EXAM: 06/22/2021 5:23 PM COMPARISON: Multiple radiographs, with the most recent on 05/23/2021 TECHNIQUE: XR chest 2V Frontal and lateral views of the chest. CLINICAL INDICATION:Female, 86 years old with history of Weakness; FINDINGS: Lungs/Pleura: There is no evidence of focal consolidation, or pneumothorax. There is blunting of the right costophrenic angle. Previous lucency of the lung apices and flattening of the diaphragms. Pulmonary vascularity: Unremarkable. Heart/mediastinum: Cardiomediastinal silhouette is unremarkable. Two lead cardiac conduction device overlying the left hemithorax, Musculoskeletal: No acute osseous pathology. IMPRESSION: 1. Small right pleural effusion without definitive evidence for acute process. No significant change from 05/23/2021. 2. COPD changes.
[2021-06-22 18:03] LABS: Albumin 4.9 g/dL (3.5-5.0); Calcium 9.6 mg/dL (8.4-10.2); Magnesium 2.9 mg/dL (1.6-2.3); Potassium 3.7 mmol/L (3.5-5.1); Total Bilirubin 1.3 mg/dL (0.2-1.3); Total Protein 8.1 g/dL (6.3-8.2)
[2021-06-22] MEDS ORDERED: SODIUM CHLORIDE 0.9% 500 ML 500 ML IV ONE (18:16)
[2021-06-22] MEDS ORDERED: MIDODRINE 5 MG TAB PO STA (20:13)
[2021-06-22] MEDS ORDERED: NALOXONE 0.4 MG/ML 1 ML VIAL IV PRN (20:16)
[2021-06-22 22:52] LABS: Appearance,Urine Clear (Clear); Bacteria,Urine Rare /hpf; Bilirubin,Urine Negative (Negative); Blood,Urine Moderate (Negative); Color,Urine Light Yellow; Glucose,Urine (UA) Negative (Negative); Hyaline Casts,Urine 5 /lpf (0-2); Ketones,Urine Negative (Negative); Leukocyte Esterase,Urine Large (Negative); Nitrite,Urine Negative (Negative); PH, Urine 5.5 (5.0-8.0); Protein,Urine Negative (Negative); RBC,Urine 10 /hpf (0-5); Specific Gravity,Urine 1.009 (1.001-1.035); Squamous Epithelial Cell,Urine 1 /hpf (0-4); Urobilinogen,Urine <2.0 mg/dL (<2.0); WBC,Urine 45 /hpf (0-5)
[2021-06-22] MEDS ORDERED: LORATADINE 10 MG TAB PO PRN (23:03)
[2021-06-22] MEDS ORDERED: WARFARIN 1.5 MG TAB PO ONE (23:15)
[2021-06-22] MEDS ORDERED: cefTRIAXone IN SWFI 1,000 MG/10 ML SYRINGE IVP STA (23:44)
--- NOTE | 2021-06-23 00:05 | P.HPIM ---
History of Present Illness H&P Date: 06/22/21 HISTORY OF PRESENT ILLNESS 86-year-old female one of my office patient who was hospitalized in May 2105/24/2021 for right-sided pleural effusion with worsening dyspnea and shortness of breath mild respiratory failure, was hospitalized again early from April 30 of 05/08/2021 for CHF exacerbation found to have pleural effusion which had thoracentesis fourth of the time came back to be transudate mostly with no cancer cells no exudate or infection. Patient was seen in the office twice since her last discharge also was seen her bond analyst and further change in m edication was made. patient apparently has not been feeling well last few days major complaint and concern that she have severe exertional shortness of breath with minimum exertion along with severe fatigue and tiredness she had poor appetite with mild nausea no vomiting she denies any black stools or tarry stool. Her last thoracentesis was in May 23 for over 2000 mL of transudative fluid was done. Patient was seen and evaluated demurs apartment finding consistent with positive UA for UTI, BUN of 135 with creatinine of 3.37 has an acute kidney injury with chronic kidney disease. Hemoglobin was 17 with hematocrit 51.1 with normal WBC. Patient was started on gentle hydration and admitted to the hospital was diagnosed with acute kidney injury with chronic kidney disease. REVIEW OF SYSTEMS Constitutional: No fever, no chills, no night sweats. Reports weight change. No weakness, reports fatigue no lethargy. No daytime sleepiness. EENT: No headache. No blurred vision or double vision, no loss of vision. No loss of Hearing, no ringing in the ears, no dizziness. No nasal drainage or congestion. No epistaxis. No sore throat. Lungs: Reports shortness of breath, no cough, no sputum production. No wheezing. Cardiovascular: No chest pain, no lower extremity edema. No palpitations. No paroxysmal nocturnal dyspnea. Reports orthopnea. No lightheadedness or dizziness. No syncopal episodes. Abdominal: No abdominal pain. No nausea, vomiting. No diarrhea. No constipation. No bloody or tarry stools.. No loss of appetite. Genitourinary: No dysuria, increased frequency, urgency. No urinary retention. Musculoskeletal: No myalgias. No muscle weakness, no gait dysfunction, no frequent falls. No back pain. No neck pain. Integumentary: No wounds, no lesions. No rash or pruritus. No unusual bruising. No change in hair or nails. Neurologic: No aphasia. No facial droop. No change in mentation. No head injury. No headache. No paralysis. No paresthesia. Psychiatric: No depression. No anxiety. No mood swings. Endocrine: No abnormal blood sugars. Reports weight change. No excessive sweating or thirst. No cold intolerance. SOCIAL HISTORY Patient is a lifelong nonsmoker, no alcohol use, marijuana use or illicit drug use. She does not have CPAP, O2, nebulizer. She worked in [employer]-type jobs in the past and is retired. FAMILY HISTORY Father at age 67 from kidney cancer. Mother at age 78 with history of breast cancer and also a female cancer. Patient has 1 brother that passed from COPD at age 69. She has 2 sisters one passed at age 45 from breast cancer and one at age 79 for Alzheimer's dementia. Patient has a total of 6 children. 2 were born stillborn. She has one son that is passed from a CVA brain bleed. She has 3 daughters and one has Covid one has problems due to motor vehicle accident. PHYSICAL EXAMINATION Gen: This is an 86-year-old female. She is resting in bed and appears to be comfortable and in no acute distress. HEENT: Head is atraumatic, normocephalic. Pupils equal, round. Sclerae is anicteric. NECK: Supple. No JVD. No lymphadenopathy. No thyromegaly. LUNGS: Diminished to the bilateral bases, greater on the right. No intercostal retractions. HEART: Irregularly irregular rhythm with systolic murmur. ABDOMEN: Soft. Bowel sounds are present. No masses. No tenderness. EXTREMITIES: No pedal edema. No calf tenderness. NEUROLOGICAL: Patient is awake, alert and oriented x3. Cranial nerves 2 through 12 are grossly intact. ASSESSMENT AND PLAN 1 severe dyspnea and shortness of breath: Advanced cardiomyopathy and congestive heart failure we'll continue current management and treatment. 2 acute kidney failure with chronic kidney disease: Most likely from the effect of the diuretics and amiodarone, patient would help her diuretics for now continue gentle hydration consult nephrology ultrasound of the kidneys be done repeat CMP in the morning. 3 chronic respiratory distress on acute component secondary to CHF, cardiomyopathy, pleural effusion and pulmonary hypertension. 4 nonischemic cardiopathy status post AICD: Remain on metoprolol, Aldactone, and loop diuretics along with Entresto. 5 A. fib with RVR: Back on warfarin could not afford any of 10 Juanita agent. 6 hypothyroidism: Continue patient on levothyroxine 25 g daily. 7 type 2 diabetes: Resume glipizide along with NovoLog sliding scales coverage. 8 severe mitral regurgitation: Still seen cardiology no intervention required at this point. 9 hypotension: Specially with the use of her heart failure medication the blood pressure become quite bit low and titrate midodrine up to 10 mg 3 times a day. 10 hyperlipidemia: Continue patient on atorvastatin 10 mg daily. 11 GI prophylaxis: Patient be on Pepcid 20 mg daily. 12 DVT prophylaxis: Continue anticoagulation with warfarin INR is done and daily basis. CODE STATUS: Full code. Admit patient to the inpatient service for more than 2 night stay. Past Medical History Past Medical History: Cancer, Heart Failure, Diabetes Mellitus, Hyperlipidemia, Osteoarthritis (OA), Skin Disorder, Vascular Disorder Additional Past Medical History / Comment(s): basal cell skin cancer, rash on face, History of Any Multi-Drug Resistant Organisms: None Reported Past Surgical History: AICD, Appendectomy, Bladder Surgery, Bowel Resection, Cholecystectomy, Heart Catheterization, Hysterectomy, Tonsillectomy, Tubal Ligation Additional Past Surgical History / Comment(s): venogram/fluoroscopy, neema cataracts, Past Anesthesia/Blood Transfusion Reactions: No Reported Reaction Type of Cardiac Device: AICD Device Placement Date:: 2007 Past Psychological History: No Psychological Hx Reported Smoking Status: Never smoker Past Alcohol Use History: None Reported Past Drug Use History: None Reported - Past Family History Father Family Medical History: Cancer Mother Family Medical History: Cancer Sister(s) Family Medical History: Cancer, Deep Vein Thrombosis (DVT) Additional Family Medical History / Comment(s): skin cancer Brother(s) History Unknown: Yes Family Medical History: Cancer Additional Family Medical History / Comment(s): skin cancer Medications and Allergies Home Medications Medication Instructions Recorded Confirmed Type Magnesium Chloride [Mag64] 64 mg PO DAILY@0700 10/22/15 06/22/21 History Simvastatin [Zocor] 20 mg PO HS@2100 10/22/15 06/22/21 History Amiodarone [Cordarone] 200 mg PO DAILY@0900 11/24/15 06/22/21 History Levothyroxine Sodium [Synthroid] 25 mcg PO DAILY@0700 03/30/18 06/22/21 History Warfarin [Coumadin] 1 mg PO SUTUTH@209903/30/18 06/22/21 History Warfarin [Coumadin] 1.5 mg PO MOWEFRSA@209903/30/18 06/22/21 History calcium polycarbophiL [Fibercon] 625 mg PO DAILY PRN 11/19/18 06/22/21 History Cetirizine HCl 10 mg PO DAILY PRN 11/21/20 06/22/21 History glipiZIDE [Glucotrol] 5 mg PO BID@0900,209911/21/20 06/22/21 History Loperamide [Imodium] 2 mg PO BID@0900,209904/29/21 06/22/21 History Triamcinolone 0.1% Ointment 1 applic TOPICAL DAILY@0900 04/29/21 06/22/21 History [Kenalog 0.1% Ointment] Furosemide [Lasix] 40 mg PO BID@0900,159905/21/21 06/22/21 History Sacubitril/Valsartan [Entresto 24 1 tab PO BID@0900,209905/21/21 06/22/21 History mg-26 mg Tablet] Spironolactone [Aldactone] 25 mg PO DAILY@0900 05/21/21 06/22/21 History Metoprolol Succinate [Toprol XL] 100 mg PO HS@209906/22/21 06/22/21 History Midodrine HCl [ProAmatine] 10 mg PO TID-W/MEALS 06/22/21 06/22/21 History metOLazone 2.5 mg PO MOTH@159906/22/21 06/22/21 History Allergies Allergy/AdvReac Type Severity Reaction Status Date / Time quinidine Allergy Rash/Hives Verified 06/22/21 18:02 CLEAR PLASTIC TAPE Allergy Rash/Hives Uncoded 06/22/21 16:36 Physical Exam Vitals: Vital Signs Temp Pulse Resp BP Pulse Ox 06/22/21 23:00 76 12 115/45 06/22/21 22:09 76 21 70/44 06/22/21 20:25 69 12 89/50 98 06/22/21 19:19 70 17 83/50 06/22/21 18:56 70 10 L 96 06/22/21 18:00 65 18 74/45 99 06/22/21 17:36 70 12 86/51 97 06/22/21 16:56 74 16 88/54 95 06/22/21 16:36 98.5 F 70 16 71/53 99 Intake and Output 06/22/21 06/22/21 06/23/21 14:59 22:59 06:59 Other: Weight 60.781 kg Results CBC & Chem 7: 06/22/21 17:10 06/22/21 17:10 Labs: Abnormal Lab Results - Last 24 Hours (Table) 06/22/21 06/22/21 06/22/21 Range/Units 17:10 17:10 17:10 Hgb 17.0 H (11.4-16.0) gm/dL Hct 51.1 H (34.0-46.0) % PT 24.3 H (9.0-12.0) sec INR 2.4 H (<1.2) APTT 30.7 H (22.0-30.0) sec Chloride 94 L (98-107) mmol/L BUN 135 H* (7-17) mg/dL Creatinine 3.37 H (0.52-1.04) mg/dL Glucose 154 H (74-99) mg/dL Magnesium 2.9 H (1.6-2.3) mg/dL AST 90 H (14-36) U/L ALT 82 H (4-34) U/L
[2021-06-23] MEDS ORDERED: ONDANSETRON 4 MG/2 ML VIAL IVP STA (00:42)
[2021-06-23] MEDS ORDERED: SODIUM CHLORIDE 0.9% 500 ML 500 ML IV ONE (06:57)
[2021-06-23] MEDS: LEVOTHYROXINE 25 MCG TAB PO SCH (07:01)
[2021-06-23] MEDS: MIDODRINE 5 MG TAB PO SCH ×3 (07:38→18:22)
[2021-06-23] MEDS: MAGNESIUM OXIDE 400 MG TAB PO SCH (07:38)
[2021-06-23] MEDS: LOPERAMIDE 2 MG CAP PO SCH ×2 (07:39→21:44)
[2021-06-23] MEDS: glipiZIDE 5 MG TAB PO SCH ×2 (07:39→21:52)
[2021-06-23] MEDS: SACUBITRIL/VALSARTAN 24 MG-26 MG TABLET PO SCH ×2 (07:41→21:53)
[2021-06-23] MEDS: AMIODARONE 100 MG TAB PO SCH (08:42)
[2021-06-23] MEDS ORDERED: SACUBITRIL/VALSARTAN 24 MG-26 MG TABLET PO SCH (09:00)
[2021-06-23] MEDS ORDERED: AMIODARONE 200 MG TAB PO SCH (09:00)
[2021-06-23 09:16] LABS: INR 2.3 (<1.2); Prothrombin Time 23.3 sec (9.0-12.0)
[2021-06-23 09:18] LABS: Basophils % (A) 1 %; Eosinophils # (A) 0.1 k/uL (0-0.7); Eosinophils % (A) 1 %; HCT 44.6 % (34.0-46.0); HGB 15.2 gm/dL (11.4-16.0); Lymphocytes % (A) 30 %; MCH 31.7 pg (25.0-35.0); MCV 93.2 fL (80.0-100.0); Mean Platelet Volume 9.6; Monocytes # (A) 0.5 k/uL (0-1.0); Monocytes % (A) 7 %; Neutrophils # (A) 3.9 k/uL (1.3-7.7); Neutrophils % (A) 59 %; Platelet Count 160 k/uL (150-450); RBC 4.78 m/uL (3.80-5.40); RDW 14.1 % (11.5-15.5); WBC 6.6 k/uL (3.8-10.6)
[2021-06-23 09:33] LABS: ALT 68 U/L (4-34); AST 72 U/L (14-36); African American GFR (CKD) 16 (>60 ml/min/1.73 sqM); Albumin 3.9 g/dL (3.5-5.0); Alkaline Phosphatase 43 U/L (38-126); Anion Gap 15 mmol/L; Calcium 8.9 mg/dL (8.4-10.2); Carbon Dioxide 22 mmol/L (22-30); Chloride 102 mmol/L (98-107); Glucose 58 mg/dL (74-99); Non-African American GFR(CKD) 14 (>60 ml/min/1.73 sqM); Potassium 3.5 mmol/L (3.5-5.1); Sodium 139 mmol/L (137-145); Total Bilirubin 1.1 mg/dL (0.2-1.3); Total Protein 6.6 g/dL (6.3-8.2)
--- NOTE | 2021-06-23 09:39 | US ---
EXAMINATION TYPE: US renals and bladder DATE OF EXAM: 06/23/2021 COMPARISON: NONE CLINICAL HISTORY: ronald. Abnormal labs. EC trauma patient. EXAM MEASUREMENTS: Right Kidney: 9.6 x 4.4 x 4.2 cm Left Kidney: 8.6 x 4.4 x 5.0 cm Right Kidney: Mid cystic lesion = 2.2 x 2.0 x 2.2 cm Left Kidney: cystic lesions seen with largest mid medial = 1.7 x 1.7 x 1.7 cm. Inferior echogenic fo cus= 1.0 cm. Superior echogenic focus= 0.9 cm, may be nonobstructing renal stones. Bladder: anechoic, distended Left Jet seen IMPRESSION: 1. Nonobstructing left renal stones. 2. Bilateral renal cysts.
[2021-06-23 09:57] LABS: Blood Urea Nitrogen >120 mg/dL (7-17)
--- NOTE | 2021-06-23 10:25 | P.CRDCN ---
History of Present Illness Consult date: 06/23/21 History of present illness: HISTORY OF PRESENT ILLNESS: This is a 86-year-old female with a past medical history significant for hypertension, hyperlipidemia, diabetes, congestive heart failure, cardiomyopathy, severe mitral regurgitation, and biventricular AICD implantation. Patient follows in the office with Dr. Rucker. We have been asked to see the patient in consultation for hypotension. Patient examined at the bedside. Patient presented to the ER with a chief complaint of weakness. She reports impaired balance. She reports nausea in the morning with excessive burping and then vomiting at home. She reports decreased oral intake. She reports losing 2 pounds last week. She denies having any shortness of breath at the time of examination. She denies any chest pain or pressure. Patient was found to be hypotensive with a SBP in the 70s. She denies any dizziness or lightheadedness. She denies any chest pain or pressure. It is noted that the patient has been hospitalized multiple times this year. Most recently in May 2021. Patient underwent right-sided thoracentesis at that time. * EKG reveals ventricular paced rhythm * Chest xray small right pleural effusion without definite evidence for acute process. COPD changes. * Laboratory data: WBC 6.6. Hemoglobin 15.2. Platelet count 160. INR 2.3. Sodium 139. Potassium 3.5. BUN 120. Creatinine 2.96. Lactic acid 1.4. Magnesium 2.9. Troponin negative 1. ProBNP 5740. * Current home cardiac medications include Midodrine 10 mg 3 times a day, Coumadin 1.5 mg Tuesday and 1 mg Tuesday, Aldactone 25 mg daily, Zocor 20 mg at night, Lasix 40 mg twice a day, amiodarone 200 mg daily, metoprolol succinate 100 mg at night, and Ent keyur 24-26mg BID. * Most recent echocardiogram obtained in December 2020 revealed ejection fraction 20-25%, mild aortic regurgitation, severe mitral regurgitation, mild tricuspid regurgitation, and large pleural effusion * Cardiac catheterization history: 2007 revealing normal coronary arteries REVIEW OF SYSTEMS: At the time of my exam: CONSTITUTIONAL: Denies fever or chills. HEENT: Denies blurred vision, vision changes, or eye pain. Denies hemoptysis CARDIOVASCULAR: Denies chest pain. Denies orthopnea. Denies PND. Denies palpitations RESPIRATORY: Denies shortness of breath. GASTROINTESTINAL: Denies abdominal pain. Denies nausea or vomiting. HEMATOLOGIC: Denies bleeding disorders. GENITOURINARY: Denies any blood in urine. SKIN: Denies pruitis. Denies rash. PHYSICAL EXAM: VITAL SIGNS: Reviewed. GENERAL: Well-developed in no acute distress. HEENT: Head is normocephalic. Pupils are equal, round. Sclerae anicteric. Mucous membranes of the mouth are moist. Neck supple. No JVD or thyromegaly LUNGS: Respirations even and unlabored. Lungs essentially clear to auscultation bilaterally. HEART: Regular rate and rhythm. S1 and S2 heard. Systolic murmur noted. ABDOMEN: Soft. Nondistended. Nontender. EXTREMITIES: Normal range of motion. No clubbing or cyanosis. Peripheral pulses intact. No lower extremity edema NEUROLOGIC: Awake and alert. Oriented x 3. ASSESSMENT: Generalized weakness Acute on chronic kidney injury Hypotension Nonischemic cardiomyopathy with AICD implantation Persistent atrial fibrillation Hypertension Hyperlipidemia Diabetes History of congestive heart failure with reduced ejection fraction Severe mitral regurgitation History of recurrent pleural effusion, status post right-sided thoracentesis in May 2021 PLAN: Obtain 2D echo to assess cardiac structure and function Resume home cardiac medications Decrease amiodarone to 100mg daily Decrease Entresto to half a tablet twice a day Hold all BP meds for SBP less than 90 Give 500cc bolus now. If no improvement in BP, may require vasopressor therapy Patient may benefit from Jardiance for her heart failure and diabetes. This can further be discussed on an outpatient basis Nephrology consulted for acute kidney injury. Await evaluation Further recommendations pending patient's course Nurse practitioner note has been reviewed by physician. Signing provider agrees with the documented findings, assessment, and plan of care. Past Medical History Past Medical History: Cancer, Heart Failure, Diabetes Mellitus, Hyperlipidemia, Osteoarthritis (OA), Skin Disorder, Vascular Disorder Additional Past Medical History / Comment(s): basal cell skin cancer, rash on face, History of Any Multi-Drug Resistant Organisms: None Reported Past Surgical History: AICD, Appendectomy, Bladder Surgery, Bowel Resection, Cholecystectomy, Heart Catheterization, Hysterectomy, Tonsillectomy, Tubal Ligation Additional Past Surgical History / Comment(s): venogram/fluoroscopy, neema cataracts, Past Anesthesia/Blood Transfusion Reactions: No Reported Reaction Type of Cardiac Device: AICD Device Placement Date:: 2007 Past Psychological History: No Psychological Hx Reported Smoking Status: Never smoker Past Alcohol Use History: None Reported Past Drug Use History: None Reported - Past Family History Father Family Medical History: Cancer Mother Family Medical History: Cancer Sister(s) Family Medical History: Cancer, Deep Vein Thrombosis (DVT) Additional Family Medical History / Comment(s): skin cancer Brother(s) History Unknown: Yes Family Medical History: Cancer Additional Family Medical History / Comment(s): skin cancer Medications and Allergies Home Medications Medication Instructions Recorded Confirmed Type Magnesium Chloride [Mag64] 64 mg PO DAILY@0710/22/15 06/22/21 History Simvastatin [Zocor] 20 mg PO HS@209910/22/15 06/22/21 History Amiodarone [Cordarone] 200 mg PO DAILY@0911/24/15 06/22/21 History Levothyroxine Sodium [Synthroid] 25 mcg PO DAILY@69903/30/18 06/22/21 History Warfarin [Coumadin] 1 mg PO SUTUTH@209903/30/18 06/22/21 History Warfarin [Coumadin] 1.5 mg PO MOWEFRSA@209903/30/18 06/22/21 History calcium polycarbophiL [Fibercon] 625 mg PO DAILY PRN 11/19/18 06/22/21 History Cetirizine HCl 10 mg PO DAILY PRN 11/21/20 06/22/21 History glipiZIDE [Glucotrol] 5 mg PO BID@0900,209911/21/20 06/22/21 History Loperamide [Imodium] 2 mg PO BID@0900,209904/29/21 06/22/21 History Triamcinolone 0.1% Ointment 1 applic TOPICAL DAILY@89904/29/21 06/22/21 History [Kenalog 0.1% Ointment] Furosemide [Lasix] 40 mg PO BID@0900,1600 05/21/21 06/22/21 History Sacubitril/Valsartan [Entresto 24 1 tab PO BID@0900,209905/21/21 06/22/21 History mg-26 mg Tablet] Spironolactone [Aldactone] 25 mg PO DAILY@0900 05/21/21 06/22/21 History Metoprolol Succinate [Toprol XL] 100 mg PO HS@2100 06/22/21 06/22/21 History Midodrine HCl [ProAmatine] 10 mg PO TID-W/MEALS 06/22/21 06/22/21 History metOLazone 2.5 mg PO MOTH@1600 06/22/21 06/22/21 History Allergies Allergy/AdvReac Type Severity Reaction Status Date / Time quinidine Allergy Rash/Hives Verified 06/22/21 18:02 CLEAR PLASTIC TAPE Allergy Rash/Hives Uncoded 06/22/21 16:36 Physical Exam Vitals: Vital Signs Temp Pulse Resp BP Pulse Ox 06/23/21 04:06 71 14 85/55 95 06/23/21 01:00 70 19 80/48 95 06/23/21 00:05 70 17 74/43 94 L 06/22/21 23:00 76 12 115/45 06/22/21 22:09 76 21 70/44 06/22/21 20:25 69 12 89/50 98 06/22/21 19:19 70 17 83/50 06/22/21 18:56 70 10 L 96 06/22/21 18:00 65 18 74/45 99 06/22/21 17:36 70 12 86/51 97 06/22/21 16:56 74 16 88/54 95 06/22/21 16:36 98.5 F 70 16 71/53 99 Intake and Output 06/22/21 06/22/21 06/23/21 14:59 22:59 06:59 Other: Weight 60.781 kg Results 06/23/21 08:23 06/23/21 08:23 Cardiac Enzymes 06/22/21 06/22/21 Range/Units 17:10 17:10 AST 90 H (14-36) U/L Troponin I <0.012 (0.000-0.034) ng/mL Coagulation 06/22/21 Range/Units 17:10 PT 24.3 H (9.0-12.0) sec APTT 30.7 H (22.0-30.0) sec CBC 06/22/21 Range/Units 17:10 WBC 7.9 (3.8-10.6) k/uL RBC 5.38 (3.80-5.40) m/uL Hgb 17.0 H (11.4-16.0) gm/dL Hct 51.1 H (34.0-46.0) % Plt Count 200 (150-450) k/uL Comprehensive Metabolic Panel 06/22/21 Range/Units 17:10 Sodium 138 (137-145) mmol/L Potassium 3.7 (3.5-5.1) mmol/L Chloride 94 L (98-107) mmol/L Carbon Dioxide 27 (22-30) mmol/L BUN 135 H* (7-17) mg/dL Creatinine 3.37 H (0.52-1.04) mg/dL Glucose 154 H (74-99) mg/dL Calcium 9.6 (8.4-10.2) mg/dL AST 90 H (14-36) U/L ALT 82 H (4-34) U/L Alkaline Phosphatase 79 (38-126) U/L Total Protein 8.1 (6.3-8.2) g/dL Albumin 4.9 (3.5-5.0) g/dL Current Medications Generic Name Dose Route Start Last Admin Trade Name Freq PRN Reason Stop Dose Admin Amiodarone HCl 200 mg 06/23/21 09:00 Amiodarone 200 Mg Tab PO DAILY@0900 [facility] Amiodarone HCl 100 mg 06/23/21 09:00 Amiodarone 100 Mg Tab PO DAILY [facility] Atorvastatin Calcium 10 mg 06/23/21 21:00 Atorvastatin 10 Mg Tab PO HS@2100 [facility] Calcium Polycarbophil 625 mg 06/22/21 23:03 Calcium Polycarbophil 625 Mg Tab PO DAILY PRN Constipation Glipizide 5 mg 06/23/21 09:00 Glipizide 5 Mg Tab PO BID@0900,2100 [facility] Sodium Chloride 1,000 mls @ 50 mls/hr 06/22/21 17:07 06/22/21 17:34 Saline 0.9% IV 06/23/21 13:06 50 mls/hr .Q20H STA Administration Levothyroxine Sodium 25 mcg 06/23/21 06:30 Levothyroxine 25 Mcg Tab PO DAILY@0630 [facility] Loperamide HCl 2 mg 06/23/21 09:00 Loperamide 2 Mg Cap PO BID@0900,2100 [facility] Loratadine 10 mg 06/22/21 23:03 Loratadine 10 Mg Tab PO DAILY PRN Allergy Symptoms Magnesium Oxide 200 mg 06/23/21 09:00 Magnesium Oxide 400 Mg Tab PO DAILY [facility] Metoprolol Succinate 100 mg 06/23/21 21:00 Metoprolol Succinate (Er) 100 Mg Tab.Er.24h PO HS@2100 [facility] Midodrine 10 mg 06/23/21 07:30 Midodrine 5 Mg Tab PO TID-W/MEALS [facility] Miscellaneous Information 0 each 06/22/21 23:12 Warfarin Per Pharmacy MISCELLANE DIRECTED PRN Per Protocol Naloxone HCl 0.2 mg 06/22/21 20:16 Naloxone 0.4 Mg/Ml 1 Ml Vial IV Q2M PRN Opioid Reversal Sacubitril/Valsartan 1 each 06/23/21 09:00 Sacubitril/Valsartan 24 Mg-26 Mg Tablet PO BID@0900,2100 [facility] Intake and Output 06/22/21 06/22/21 06/23/21 14:59 22:59 06:59 Other: Weight 60.781 kg Patient Weight 06/23/21 06:59 Weight 60.781 kg 06/22/21 17:10 06/22/21 17:10
--- NOTE | 2021-06-23 12:30 | P.NPCON ---
History of Present Illness - Reason for Consult acute renal failure - History of Present Illness Patient is an 86-year-old female with history of CHF, hypertension, chronic kidney disease, stage IV with baseline creatinine 1.5-1.7 mg/dL. Etiology is nephrosclerosis. Patient is admitted to the hospital with complaints of increased weakness. Patient reports having had nausea for about 2-3 days. She also reported diarrhea [place] and Patient has not been eating much. Blood pressure has been low with systolic in the 80s. Status post IV fluids. Patient has had fair urine output Serum creatinine was 3.37 yesterday and it is down to 2.96. No fever chills chest pains or shortness of breath Review of Systems As per HPI Past Medical History Past Medical History: Cancer, Heart Failure, Diabetes Mellitus, Hyperlipidemia, Osteoarthritis (OA), Skin Disorder, Vascular Disorder Additional Past Medical History / Comment(s): basal cell skin cancer, rash on face, History of Any Multi-Drug Resistant Organisms: None Reported Past Surgical History: AICD, Appendectomy, Bladder Surgery, Bowel Resection, Cholecystectomy, Heart Catheterization, Hysterectomy, Tonsillectomy, Tubal Ligation Additional Past Surgical History / Comment(s): venogram/fluoroscopy, neema cataracts, Past Anesthesia/Blood Transfusion Reactions: No Reported Reaction Type of Cardiac Device: AICD Device Placement Date:: 2007 Past Psychological History: No Psychological Hx Reported Smoking Status: Never smoker Past Alcohol Use History: None Reported Past Drug Use History: None Reported - Past Family History Father Family Medical History: Cancer Mother Family Medical History: Cancer Sister(s) Family Medical History: Cancer, Deep Vein Thrombosis (DVT) Additional Family Medical History / Comment(s): skin cancer Brother(s) History Unknown: Yes Family Medical History: Cancer Additional Family Medical History / Comment(s): skin cancer Medications and Allergies Home Medications Medication Instructions Recorded Confirmed Type Magnesium Chloride [Mag64] 64 mg PO DAILY@0700 10/22/15 06/22/21 History Simvastatin [Zocor] 20 mg PO HS@2100 10/22/15 06/22/21 History Amiodarone [Cordarone] 200 mg PO DAILY@0900 11/24/15 06/22/21 History Levothyroxine Sodium [Synthroid] 25 mcg PO DAILY@0700 03/30/18 06/22/21 History Warfarin [Coumadin] 1 mg PO SUTUTH@209903/30/18 06/22/21 History Warfarin [Coumadin] 1.5 mg PO MOWEFRSA@209903/30/18 06/22/21 History calcium polycarbophiL [Fibercon] 625 mg PO DAILY PRN 11/19/18 06/22/21 History Cetirizine HCl 10 mg PO DAILY PRN 11/21/20 06/22/21 History glipiZIDE [Glucotrol] 5 mg PO BID@0900,209911/21/20 06/22/21 History Loperamide [Imodium] 2 mg PO BID@0900,209904/29/21 06/22/21 History Triamcinolone 0.1% Ointment 1 applic TOPICAL DAILY@89904/29/21 06/22/21 History [Kenalog 0.1% Ointment] Furosemide [Lasix] 40 mg PO BID@0900,159905/21/21 06/22/21 History Sacubitril/Valsartan [Entresto 24 1 tab PO BID@0900,209905/21/21 06/22/21 History mg-26 mg Tablet] Spironolactone [Aldactone] 25 mg PO DAILY@0900 05/21/21 06/22/21 History Metoprolol Succinate [Toprol XL] 100 mg PO HS@209906/22/21 06/22/21 History Midodrine HCl [ProAmatine] 10 mg PO TID-W/MEALS 06/22/21 06/22/21 History metOLazone 2.5 mg PO MOTH@159906/22/21 06/22/21 History Allergies Allergy/AdvReac Type Severity Reaction Status Date / Time quinidine Allergy Rash/Hives Verified 06/22/21 18:02 CLEAR PLASTIC TAPE Allergy Rash/Hives Uncoded 06/22/21 16:36 Physical Exam Vitals: Vital Signs Temp Pulse Resp BP Pulse Ox 06/23/21 10:44 72 18 103/58 98 06/23/21 09:45 70 18 98/56 96 06/23/21 08:44 70 18 88/48 94 L 06/23/21 07:23 73 16 85/50 96 06/23/21 07:00 70 13 84/45 96 06/23/21 06:43 69 19 77/46 100 06/23/21 04:06 71 14 85/55 95 06/23/21 01:00 70 19 80/48 95 06/23/21 00:05 70 17 74/43 94 L 06/22/21 23:00 76 12 115/45 06/22/21 22:09 76 21 70/44 06/22/21 20:25 69 12 89/50 98 06/22/21 19:19 70 17 83/50 06/22/21 18:56 70 10 L 96 06/22/21 18:00 65 18 74/45 99 06/22/21 17:36 70 12 86/51 97 06/22/21 16:56 74 16 88/54 95 06/22/21 16:36 98.5 F 70 16 71/53 99 Intake and Output 06/22/21 06/23/21 06/23/21 22:59 06:59 14:59 Other: Weight 60.781 kg Patient is awake, comfortable, not in any acute distress Alert oriented 3 Examination of the heart S1 and S2 Exertion lungs bilateral breath sounds are heard Abdomen is soft nontender Exertion lower ex Mittie shows no evidence of edema [employer] exam grossly intact Results - Lab Results Most recent lab results Calcium 8.9 mg/dL (8.4-10.2) 06/23/21 08:23 Magnesium 2.9 mg/dL (1.6-2.3) H 06/22/21 17:10 06/23/21 08:23 06/23/21 08:23 Assessment and Plan Assessment: 1. Acute kidney injury prerenal and from hypovolemia currently nonoliguric. Improving 2. Hypovolemia, hypotension improving with IV fluids 3. Pyuria, rule out UTI 4. Cardiomyopathy, ejection fraction 20-25% on echocardiogram done in December 2020 5. A. fib with RVR 6. Nausea vomiting and diarrhea, currently improved Plan: Maintain IV hydration Continue with midodrine Repeat labs in a.m. Accurate I's and O's
[2021-06-23 14:20] LABS: Glucose,Whole Blood 161 mg/dL (75-99)
[2021-06-23] MEDS: INSULIN ASPART (NovoLOG) 100 UNIT/ML VIAL SQ SCH ×3 (14:24→21:53)
--- NOTE | 2021-06-23 14:43 | P.PN ---
Subjective Progress Note Date: 06/23/21 HISTORY OF PRESENT ILLNESS 86-year-old female one of my office patient who was hospitalized in May 2105/24/2021 for right-sided pleural effusion with worsening dyspnea and shortness of breath mild respiratory failure, was hospitalized again early from April 30 of 05/08/2021 for CHF exacerbation found to have pleural effusion which had thoracentesis fourth of the time came back to be transudate mostly with no cancer cells no exudate or infection. Patient was seen in the office twice since her last discharge also was seen her principle industrial hygienist and further change in medication was made. patient apparently has not been feeling well last few days major complaint and concern that she have severe exertional shortness of breath with minimum exertion along with severe fatigue and tiredness she had poor appetite with mild nausea no vomiting she denies any black stools or tarry stool. Her last thoracentesis was in May 23 for over 2000 mL of transudative fluid was done. [facility] consistent with positive UA for UTI, BUN of 135 with creatinine of 3.37 has an acute kidney injury with chronic kidney disease. Hemoglobin was 17 with hematocrit 51.1 with normal WBC. Patient was started on gentle hydration and admitted to the hospital was diagnosed with acute kidney injury with chronic kidney disease. 06/23: Patient remains in the ER waiting for bed on the cardiac stepdown unit. Family member is at bedside. Patient afebrile, heart rate 70, blood pressure 88/48, pulse ox 94% on room air. Repeat blood work reveals a normal CBC. INR is 2.3. Watch lites normal. Renal function is improved with BUN greater than 120 and creatinine 2.96. Blood sugar 58 this morning. AST 72 and ALT 68. Urine culture is in progress. Patient started on Rocephin for UTI. Patient has been seen by nephrology for acute kidney injury, hypovolemic hypotension with recommendations to continue IV hydration, midodrine and repeat labs, I&O. Patient is also been seen by cardiology and echocardiogram has been ordered, home medications resumed and amiodarone decreased to 100 mg daily and chest stroke decreased to half twice daily, hold all blood pressure medications for systolic less than 90. Repeat blood work has been ordered for tomorrow. Renal ultrasound reveals nonobstructing left renal stones. Bilateral renal cyst. REVIEW OF SYSTEMS Constitutional: No fever, no chills, no night sweats. Reports weight change. No weakness, reports fatigue no lethargy. No daytime sleepiness. EENT: No headache. No blurred vision or double vision, no loss of vision. No loss of Hearing, no ringing in the ears, no dizziness. No nasal drainage or congestion. No epistaxis. No sore throat. Lungs: Reports shortness of breath, no cough, no sputum production. No wheezing. Cardiovascular: No chest pain, no lower extremity edema. No palpitations. No paroxysmal nocturnal dyspnea. Reports orthopnea. No lightheadedness or dizziness. No syncopal episodes. Abdominal: No abdominal pain. No nausea, vomiting. No diarrhea. No constipation. No bloody or tarry stools.. No loss of appetite. Genitourinary: No dysuria, increased frequency, urgency. No urinary retention. Musculoskeletal: No myalgias. No muscle weakness, no gait dysfunction, no frequent falls. No back pain. No neck pain. Integumentary: No wounds, no lesions. No rash or pruritus. No unusual bruising. No change in hair or nails. Neurologic: No aphasia. No facial droop. No change in mentation. No head injury. No headache. No paralysis. No paresthesia. Psychiatric: No depression. No anxiety. No mood swings. Endocrine: No abnormal blood sugars. Reports weight change. No excessive sweating or thirst. No cold intolerance. PHYSICAL EXAMINATION Gen: This is an 86-year-old female. She is resting in bed and appears to be comfortable and in no acute distress. HEENT: Head is atraumatic, normocephalic. Pupils equal, round. Sclerae is anicteric. NECK: Supple. No JVD. No lymphadenopathy. No thyromegaly. LUNGS: Diminished to the bilateral bases, greater on the right. No intercostal retractions. HEART: Irregularly irregular rhythm with systolic murmur. ABDOMEN: Soft. Bowel sounds are present. No masses. No tenderness. EXTREMITIES: No pedal edema. No calf tenderness. NEUROLOGICAL: Patient is awake, alert and oriented x3. Cranial nerves 2 through 12 are grossly intact. ASSESSMENT AND PLAN 1 severe dyspnea and shortness of breath: Advanced cardiomyopathy and congestive heart failure we'll continue current management and treatment. 2 acute kidney failure with chronic kidney disease. Ultrasound as above. Nephrology consult appreciated. Continue IV hydration, midodrine an increased dose and repeat lab work, monitor I&O. 3 chronic respiratory distress on acute component secondary to CHF, cardiomyopathy, pleural effusion and pulmonary hypertension. 4 nonischemic cardiopathy status post AICD. Continue Entresto at half tablet 24 mg26 mg twice daily. 5 A. fib with RVR, persistent atrial fibrillation. Continue Coumadin, pharmacy is dosing Coumadin. Continue patient on amiodarone 100 mg daily. 6 hypothyroidism: Continue patient on levothyroxine 25 g daily. 7 type 2 diabetes: Resume glipizide along with NovoLog sliding scales coverage. 8 severe mitral regurgitation: Still seen cardiology no intervention required at this point. 9 hypotension: Specially with the use of her heart failure medication the blood pressure become quite bit low and titrate midodrine up to 10 mg 3 times a day. 10 hyperlipidemia: Continue patient on atorvastatin 10 mg daily. 11 GI prophylaxis: Patient be on Pepcid 20 mg daily. 12 DVT prophylaxis: Continue anticoagulation with warfarin INR is done and daily basis. CODE STATUS: Full code. Impression and plan of care have been directed as dictated by the signing physician. Nicole aPrk nurse practitioner acting as scribe for signing physician. Objective - Vital Signs Vital signs: Vital Signs Temp 98.5 F 06/22/21 16:36 Pulse 73 06/23/21 07:23 Resp 16 06/23/21 07:23 BP 85/50 06/23/21 07:23 Pulse Ox 96 06/23/21 07:23 Intake & Output 06/22/21 06/23/21 06/23/21 18:59 06:59 18:59 Weight 60.781 kg - Labs CBC & Chem 7: 06/23/21 08:23 06/23/21 08:23 Labs: Abnormal Lab Results - Last 24 Hours (Table) 06/22/21 06/22/21 06/22/21 Range/Units 17:10 17:10 17:10 Hgb 17.0 H (11.4-16.0) gm/dL Hct 51.1 H (34.0-46.0) % PT 24.3 H (9.0-12.0) sec INR 2.4 H (<1.2) APTT 30.7 H (22.0-30.0) sec Chloride 94 L (98-107) mmol/L BUN 135 H* (7-17) mg/dL Creatinine 3.37 H (0.52-1.04) mg/dL Glucose 154 H (74-99) mg/dL Magnesium 2.9 H (1.6-2.3) mg/dL AST 90 H (14-36) U/L ALT 82 H (4-34) U/L Urine Blood (Negative) Ur Leukocyte Esterase (Negative) Urine RBC (0-5) /hpf Urine WBC (0-5) /hpf Urine WBC Clumps (None) /hpf Urine Bacteria (None) /hpf Hyaline Casts (0-2) /lpf 06/22/21 Range/Units 22:15 Hgb (11.4-16.0) gm/dL Hct (34.0-46.0) % PT (9.0-12.0) sec INR (<1.2) APTT (22.0-30.0) sec Chloride (98-107) mmol/L BUN (7-17) mg/dL Creatinine (0.52-1.04) mg/dL Glucose (74-99) mg/dL Magnesium (1.6-2.3) mg/dL AST (14-36) U/L ALT (4-34) U/L Urine Blood Moderate H (Negative) Ur Leukocyte Esterase Large H (Negative) Urine RBC 10 H (0-5) /hpf Urine WBC 45 H (0-5) /hpf Urine WBC Clumps Rare H (None) /hpf Urine Bacteria Rare H (None) /hpf Hyaline Casts 5 H (0-2) /lpf Microbiology - Last 24 Hours (Table) 06/22/21 22:15 Urine Culture - Preliminary Urine,Voided
[2021-06-23 16:40] LABS: Glucose,Whole Blood 162 mg/dL (75-99)
[2021-06-23] MEDS ORDERED: WARFARIN 1 MG TAB PO ONE (18:00)
[2021-06-23 20:36] LABS: Glucose,Whole Blood 166 mg/dL (75-99)
[2021-06-23] MEDS ORDERED: METOPROLOL SUCCINATE (ER) 100 MG TAB.ER.24H PO SCH (21:00)
[2021-06-23] MEDS ORDERED: WARFARIN 1 MG TAB PO SCH (21:00)
[2021-06-23] MEDS: ATORVASTATIN 10 MG TAB PO SCH (21:53)
[2021-06-24 06:11] LABS: Glucose,Whole Blood 136 mg/dL (75-99)
[2021-06-24] MEDS: INSULIN ASPART (NovoLOG) 100 UNIT/ML VIAL SQ SCH ×4 (06:52→20:47)
[2021-06-24] MEDS: MIDODRINE 5 MG TAB PO SCH ×3 (06:52→16:50)
[2021-06-24] MEDS: LEVOTHYROXINE 25 MCG TAB PO SCH (06:52)
[2021-06-24] MEDS: glipiZIDE 5 MG TAB PO SCH ×2 (08:34→20:47)
[2021-06-24] MEDS: SACUBITRIL/VALSARTAN 24 MG-26 MG TABLET PO SCH ×2 (08:35→21:35)
[2021-06-24] MEDS: MAGNESIUM OXIDE 400 MG TAB PO SCH (08:35)
[2021-06-24 08:36] LABS: INR 2.6 (<1.2)
[2021-06-24] MEDS: AMIODARONE 100 MG TAB PO SCH (08:36)
[2021-06-24] MEDS: LOPERAMIDE 2 MG CAP PO SCH ×2 (08:36→20:38)
[2021-06-24 08:47] LABS: Albumin 3.8 g/dL (3.5-5.0); Calcium 8.9 mg/dL (8.4-10.2); Potassium 3.4 mmol/L (3.5-5.1); Total Bilirubin 0.6 mg/dL (0.2-1.3); Total Protein 6.3 g/dL (6.3-8.2)
--- NOTE | 2021-06-24 10:17 | P.PN ---
Subjective Progress Note Date: 06/24/21 HISTORY OF PRESENT ILLNESS: This is a 86-year-old female with a past medical history significant for hypertension, hyperlipidemia, diabetes, congestive heart failure, cardiomyopathy, severe mitral regurgitation, and biventricular AICD implantation. Patient follows in the office with Dr. Rucker. We have been asked to see the patient in consultation for hypotension. Patient examined at the bedside. Patient presented to the ER with a chief complaint of weakness. She reports impaired balance. She reports nausea in the morning with excessive burping and then vomiting at home. She reports decreased oral intake. She reports losing 2 pounds last week. She denies having any shortness of breath at the time of examination. She denies any chest pain or pressure. Patient was foun d to be hypotensive with a SBP in the 70s. She denies any dizziness or lightheadedness. She denies any chest pain or pressure. It is noted that the patient has been hospitalized multiple times this year. Most recently in May 2021. Patient underwent right-sided thoracentesis at that time. * EKG reveals ventricular paced rhythm * Chest xray small right pleural effusion without definite evidence for acute process. COPD changes. * Laboratory data: WBC 6.6. Hemoglobin 15.2. Platelet count 160. INR 2.3. Sodium 139. Potassium 3.5. BUN 120. Creatinine 2.96. Lactic acid 1.4. Magnesium 2.9. Troponin negative 1. ProBNP 5740. * Current home cardiac medications include Midodrine 10 mg 3 times a day, Coumadin 1.5 mg Tuesday and 1 mg Tuesday, Aldactone 25 mg daily, Zocor 20 mg at night, Lasix 40 mg twice a day, amiodarone 200 mg daily, metoprolol succinate 100 mg at night, and Entresto 24-26mg BID. * Most recent echocardiogram obtained in December 2020 revealed ejection fraction 20-25%, mild aortic regurgitation, severe mitral regurgitation, mild tricuspid regurgitation, and large pleural effusion * Cardiac catheterization history: 2007 revealing normal coronary arteries 06/24/2021 Patient examined this morning at the bedside. Patient states she is feeling better today. She denies chest pain or pressure. She denies shortness of breath. Denies any further episodes of vomiting or diarrhea. She states she has been up ambulating to the bathroom without dizziness or lightheadedness. Patient's blood pressure remains stable with a systolic in the 90s. Kidney function slightly improved today with a creatinine of 2.52, down from 2.96. PHYSICAL EXAM: VITAL SIGNS: Reviewed. GENERAL: Well-developed in no acute distress. HEENT: Head is normocephalic. Pupils are equal, round. Sclerae anicteric. Mucous membranes of the mouth are moist. Neck supple. No JVD or thyromegaly LUNGS: Respirations even and unlabored. Lungs essentially clear to auscultation bilaterally. HEART: Regular rate and rhythm. S1 and S2 heard. Systolic murmur noted. ABDOMEN: Soft. Nondistended. Nontender. EXTREMITIES: Normal range of motion. No clubbing or cyanosis. Peripheral pulses intact. No lower extremity edema NEUROLOGIC: Awake and alert. Oriented x 3. ASSESSMENT: Generalized weakness Acute on chronic kidney injury Hypotension Nonischemic cardiomyopathy with AICD implantation Persistent atrial fibrillation Hypertension Hyperlipidemia Diabetes History of congestive heart failure with reduced ejection fraction Severe mitral regurgitation History of recurrent pleural effusion, status post right-sided thoracentesis in May 2021 PLAN: 2-D echo obtained. Await results Continue current cardiac medications Continue to monitor blood pressure and hold blood pressure medications for systolic blood pressure less than 90 Nephrology following for acute kidney injury. Continue to monitor kidney function Patient may benefit from Jardiance for her heart failure and diabetes. This can further be discussed on an outpatient basis. Further recommendations pending patient's course Nurse practitioner note has been reviewed by physician. Signing provider agrees with the documented findings, assessment, and plan of care. Objective - Vital Signs Vital signs: Vital Signs Temp 97.9 F 06/24/21 08:00 Pulse 70 06/24/21 08:00 Resp 18 06/24/21 08:00 BP 96/61 06/24/21 08:00 Pulse Ox 97 06/24/21 08:00 Intake & Output 06/23/21 06/24/21 06/24/21 18:59 06:59 18:59 Intake Total 118 Balance 118 Weight 60.781 kg Intake: Oral 118 Other: Voiding Method Toilet # Voids 1 - Labs CBC & Chem 7: 06/23/21 08:23 06/24/21 06:46 Labs: Abnormal Lab Results - Last 24 Hours (Table) 06/23/21 06/23/21 06/23/21 Range/Units 14:15 16:38 20:34 PT (9.0-12.0) sec INR (<1.2) Potassium (3.5-5.1) mmol/L BUN (7-17) mg/dL Creatinine (0.52-1.04) mg/dL Glucose (74-99) mg/dL POC Glucose (mg/dL) 161 H 162 H 166 H (75-99) mg/dL AST (14-36) U/L ALT (4-34) U/L 06/24/21 06/24/21 06/24/21 Range/Units 05:50 06:46 06:46 PT 26.0 H (9.0-12.0) sec INR 2.6 H (<1.2) Potassium 3.4 L (3.5-5.1) mmol/L BUN 104 H* (7-17) mg/dL Creatinine 2.52 H (0.52-1.04) mg/dL Glucose 128 H (74-99) mg/dL POC Glucose (mg/dL) 136 H (75-99) mg/dL AST 61 H (14-36) U/L ALT 66 H (4-34) U/L Microbiology - Last 24 Hours (Table) 06/22/21 22:15 Urine Culture - Final Urine,Voided
[2021-06-24 11:40] LABS: Glucose,Whole Blood 219 mg/dL (75-99)
[2021-06-24] MEDS ORDERED: POTASSIUM CHLORIDE ER 20 MEQ TAB.ER PO STA (12:01)
--- NOTE | 2021-06-24 12:08 | P.PN ---
Subjective Progress Note Date: 06/24/21 HISTORY OF PRESENT ILLNESS 86-year-old female one of my office patient who was hospitalized in May 2105/24/2021 for right-sided pleural effusion with worsening dyspnea and shortness of breath mild respiratory failure, was hospitalized again early from April 30 of 05/08/2021 for CHF exacerbation found to have pleural effusion which had thoracentesis fourth of the time came back to be transudate mostly with no cancer cells no exudate or infection. 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 patient apparently has not been feeling well last few days major complaint and concern that she have severe exertional shortness of breath with minimum exertion along with severe fatigue and tiredness she had poor appetite with mild nausea no vomiting she denies any black stools or tarry stool. Her last thoracentesis was in May 23 for over 2000 mL of transudative fluid was done. Patient was seen and [facility] finding consistent with positive UA for UTI, BUN of 135 with creatinine of 3.37 has an acute kidney injury with chronic kidney disease. Hemoglobin was 17 with hematocrit 51.1 with normal WBC. Patient was started on gentle hydration and admitted to the hospital was diagnosed with acute kidney injury with chronic kidney disease. 06/23: Patient remains in the ER waiting for bed on the cardiac stepdown unit. Family member is at bedside. Patient afebrile, heart rate 70, blood pressure 88/48, pulse ox 94% on room air. Repeat blood work reveals a normal CBC. INR is 2.3. Watch lites normal. Renal function is improved with BUN greater than 120 and creatinine 2.96. Blood sugar 58 this morning. AST 72 and ALT 68. Urine culture is in progress. Patient started on Rocephin for UTI. Patient has been seen by nephrology for acute kidney injury, hypovolemic hypotension with recommendations to continue IV hydration, midodrine and repeat labs, I&O. Patient is also been seen by cardiology and echocardiogram has been ordered, home medications resumed and amiodarone decreased to 100 mg daily and chest stroke decreased to half twice daily, hold all blood pressure medications for systolic less than 90. Repeat blood work has been ordered for tomorrow. Renal ultrasound reveals nonobstructing left renal stones. Bilateral renal cyst. 06/24: Patient is seen today on the cardiac stepdown unit. She continues to be followed by nephrology for acute kidney injury with recommendations to continue IV hydration, midodrine, I&O's and repeat blood work. Cardiology is also following an echocardiogram report is pending. Patient remains afebrile, heart rate 70, blood pressure 96/61, pulse ox 97% on room air. INR 2.6, potassium 3.4 BUN 104, creatinine 2.52. Blood sugars are running between 136 and 219. AST 61 and ALT 66. Patient states that she is very weak and not sure that she can manage at home when she is not able to stand to cook and etc. for herself. Consult placed with PT and OT for possible subacute rehab and also discussed going home with palliative care. REVIEW OF SYSTEMS Constitutional: No fever, no chills, no night sweats. Reports weight change. Reports weakness, reports fatigue no lethargy. No daytime sleepiness. EENT: No headache. No blurred vision or double vision, no loss of vision. No loss of Hearing, no ringing in the ears, no dizziness. No nasal drainage or congestion. No epistaxis. No sore throat. Lungs: Reports shortness of breath, no cough, no sputum production. No wheezing. Cardiovascular: No chest pain, no lower extremity edema. No palpitations. No paroxysmal nocturnal dyspnea. Reports orthopnea. No lightheadedness or dizziness. No syncopal episodes. Abdominal: No abdominal pain. No nausea, vomiting. No diarrhea. No constipation. No bloody or tarry stools.. No loss of appetite. Genitourinary: No dysuria, increased frequency, urgency. No urinary retention. Musculoskeletal: No myalgias. Reports muscle weakness, no gait dysfunction, no frequent falls. No back pain. No neck pain. Integumentary: No wounds, no lesions. No rash or pruritus. No unusual bruising. No change in hair or nails. Neurologic: No aphasia. No facial droop. No change in mentation. No head injury. No headache. No paralysis. No paresthesia. Psychiatric: No depression. No anxiety. No mood swings. Endocrine: No abnormal blood sugars. Reports weight change. No excessive sweating or thirst. No cold intolerance. PHYSICAL EXAMINATION Gen: This is an 86-year-old female. She is resting in bed and appears to be comfortable and in no acute distress. HEENT: Head is atraumatic, normocephalic. Pupils equal, round. Sclerae is anicteric. NECK: Supple. No JVD. No lymphadenopathy. No thyromegaly. LUNGS: Diminished to the bilateral bases, greater on the right. No intercostal retractions. HEART: Irregularly irregular rhythm with systolic murmur. ABDOMEN: Soft. Bowel sounds are present. No masses. No tenderness. EXTREMITIES: No pedal edema. No calf tenderness. NEUROLOGICAL: Patient is awake, alert and oriented x3. Cranial nerves 2 through 12 are grossly intact. ASSESSMENT AND PLAN 1 severe dyspnea and shortness of breath: Advanced cardiomyopathy and congestive heart failure we'll continue current management and treatment. 2 acute kidney failure with chronic kidney disease. Ultrasound as above. Nephrology consult appreciated. Continue IV hydration, midodrine an increased dose and repeat lab work, monitor I&O. 3 chronic respiratory distress on acute component secondary to CHF, cardiomyopathy, pleural effusion and pulmonary hypertension. 4 nonischemic cardiopathy status post AICD. Continue Entresto at half tablet 24 mg26 mg twice daily. 5 A. fib with RVR, persistent atrial fibrillation. Continue Coumadin, pharmacy is dosing Coumadin. Continue patient on amiodarone 100 mg daily. 6 hypothyroidism: Continue patient on levothyroxine 25 g daily. 7 type 2 diabetes: Resume glipizide along with NovoLog sliding scales coverage. 8 severe mitral regurgitation: Still seen cardiology no intervention required at this point. 9 hypotension: Specially with the use of her heart failure medication the blood pressure become quite bit low and titrate midodrine up to 10 mg 3 times a day. 10 hyperlipidemia: Continue patient on atorvastatin 10 mg daily. 11 GI prophylaxis: Patient be on Pepcid 20 mg daily. 12 DVT prophylaxis: Continue anticoagulation with warfarin INR is done and daily basis. 13. Generalized debility. PT and OT consults for possible subacute rehab CODE STATUS: Full code. DISCHARGE PLAN Subacute rehab versus home with palliative care. Impression and plan of care have been directed as dictated by the signing physician. Nicole Park nurse practitioner acting as scribe for signing physician. Objective - Vital Signs Vital signs: Vital Signs Temp 97.9 F 06/24/21 08:00 Pulse 70 06/24/21 08:00 Resp 18 05/18/22 08:00 BP 96/61 06/24/21 08:00 Pulse Ox 97 06/24/21 08:00 Intake & Output 06/23/21 06/24/21 06/24/21 18:59 06:59 18:59 Intake Total 118 Balance 118 Weight 60.781 kg Intake: Oral 118 Other: Voiding Method Toilet # Voids 1 - Labs CBC & Chem 7: 06/23/21 08:23 06/24/21 06:46 Labs: Abnormal Lab Results - Last 24 Hours (Table) 06/23/21 06/23/21 06/23/21 Range/Units 08:23 14:15 16:38 PT (9.0-12.0) sec INR (<1.2) Potassium (3.5-5.1) mmol/L BUN >120 H* (7-17) mg/dL Creatinine 2.96 H (0.52-1.04) mg/dL Glucose 58 L (74-99) mg/dL POC Glucose (mg/dL) 161 H 162 H (75-99) mg/dL AST 72 H (14-36) U/L ALT 68 H (4-34) U/L 06/23/21 06/24/21 06/24/21 Range/Units 20:34 05:50 06:46 PT 26.0 H (9.0-12.0) sec INR 2.6 H (<1.2) Potassium (3.5-5.1) mmol/L BUN (7-17) mg/dL Creatinine (0.52-1.04) mg/dL Glucose (74-99) mg/dL POC Glucose (mg/dL) 166 H 136 H (75-99) mg/dL AST (14-36) U/L ALT (4-34) U/L 06/24/21 Range/Units 06:46 PT (9.0-12.0) sec INR (<1.2) Potassium 3.4 L (3.5-5.1) mmol/L BUN 104 H* (7-17) mg/dL Creatinine 2.52 H (0.52-1.04) mg/dL Glucose 128 H (74-99) mg/dL POC Glucose (mg/dL) (75-99) mg/dL AST 61 H (14-36) U/L ALT 66 H (4-34) U/L Microbiology - Last 24 Hours (Table) 06/22/21 22:15 Urine Culture - Final Urine,Voided
--- NOTE | 2021-06-24 12:17 | CA ---
Transthoracic Echo Report Name: Azalea Tellez Age: 86 Gender: F : 1935 Exam Date: 06/23/2021 08:33 Exam Location: [facility] Ht (in): 65 Wt (lb): 134 Ordering Physician: Tamara Yeh Attending/Referring Phys: [id number], Rao Geropsychologist Ramandeep Cabral RDCS Procedure CPT: Indications: LV function Cardiac Hx: Technical Quality: Fair Contrast 1: Total Dose (mL): Contrast 2: Total Dose (mL): MEASUREMENTS (Male / Female) Normal Values 2D ECHO LV Diastolic Diameter PLAX 6.9 cm 4.2 - 5.9 / 3.9 - 5.3 cm LV Systolic Diameter PLAX 5.8 cm IVS Diastolic Thickness 0.8 cm 0.6 - 1.0 / 0.6 - 0.9 cm LVPW Diastolic Thickness 1.2 cm 0.6 - 1.0 / 0.6 - 0.9 cm LV Relative Wall Thickness 0.3 RV Internal Dim ED PLAX 3.6 cm LA Volume 124.3 cm??? 18 - 58 / 22 - 52 cm??? M-MODE Aortic Root Diameter MM 3.1 cm LA Systolic Diameter MM 4.0 cm LA Ao Ratio MM 1.3 AV Cusp Separation MM 1.6 cm DOPPLER AV Peak Velocity 131.9 cm/s AV Peak Gradient 7.0 mmHg AI Peak Velocity 348.6 cm/s AI Peak Gradient 48.6 mmHg AI Pressure Half Time 570.9 ms LVOT Peak Velocity 105.2 cm/s LVOT Peak Gradient 4.4 mmHg TR Peak Velocity 263.4 cm/s TR Peak Gradient 27.8 mmHg Right Ventricular Systolic Press 30.6 mmHg FINDINGS Left Ventricle Severely increased left ventricular diastolic diameter. Severely reduced global left ventricular systolic function. Left ventricular ejection fraction is estimated at 20-25 %. Left atrial pressure and left ventricular end-diastolic pressure both elevated. Right Ventricle Mild right ventricular dilatation. Right Atrium Normal right atrial size. Catheter/pacemaker wire in the right atrial cavity. Left Atrium Severely increased left atrial volume. Moderately increased left atrial area. No evidence for an atrial septal defect. Mitral Valve [id number] mitral regurgitation. Aortic Valve Trace to mild aortic regurgitation. Tricuspid Valve Mild tricuspid regurgitation. Pulmonic Valve Trace pulmonic regurgitation. Pericardium No pericardial effusion. Aorta Normal size aortic root and proximal ascending aorta. CONCLUSIONS Severe impairment of the left ventricle systolic function was EF of 20-25% Moderate to severe mitral regurgitation Previewed by: Dr. Saran Snowden MD (Electronically Signed) Final Date: 24 Jun 2021 12:16
--- NOTE | 2021-06-24 16:26 | P.PN ---
Subjective Pt is seen for f/u for JUSTIN, pre renal and associated with hypotensio. Good UOP. Renal function has improved. Pt is feeling much better. Tolerating oral intake. No n/v/d Objective - Vital Signs Vital signs: Vital Signs Temp 97.5 F L 06/24/21 12:00 Pulse 70 06/24/21 12:00 Resp 18 06/24/21 08:00 BP 111/68 06/24/21 12:00 Pulse Ox 97 06/24/21 12:00 Intake & Output 06/23/21 06/24/21 06/24/21 18:59 06:59 18:59 Intake Total 118 240 Balance 118 240 Weight 60.781 kg Intake: Oral 118 240 Other: Voiding Method Toilet # Voids 1 - Exam Pt is awake, comfortable, not in acute distress. Alert and oriented x3. Lungs are clear CVS S1 and S2 Abdomen is soft, nontender. Extremities show no edema. BUSINESS SUPERVISOR exam is intact. - Labs CBC & Chem 7: 06/23/21 08:23 06/24/21 06:46 Labs: Abnormal Lab Results - Last 24 Hours (Table) 06/23/21 06/23/21 06/24/21 Range/Units 16:38 20:34 05:50 PT (9.0-12.0) sec INR (<1.2) Potassium (3.5-5.1) mmol/L BUN (7-17) mg/dL Creatinine (0.52-1.04) mg/dL Glucose (74-99) mg/dL POC Glucose (mg/dL) 162 H 166 H 136 H (75-99) mg/dL AST (14-36) U/L ALT (4-34) U/L 06/24/21 06/24/21 06/24/21 Range/Units 06:46 06:46 11:38 PT 26.0 H (9.0-12.0) sec INR 2.6 H (<1.2) Potassium 3.4 L (3.5-5.1) mmol/L BUN 104 H* (7-17) mg/dL Creatinine 2.52 H (0.52-1.04) mg/dL Glucose 128 H (74-99) mg/dL POC Glucose (mg/dL) 219 H (75-99) mg/dL AST 61 H (14-36) U/L ALT 66 H (4-34) U/L Microbiology - Last 24 Hours (Table) 06/22/21 22:15 Urine Culture - Final Urine,Voided Assessment and Plan Assessment: 1. Acute kidney injury prerenal and from hypovolemia currently nonoliguric. Improving 2. Hypovolemia, hypotension improving with IV fluids 3. Pyuria, rule out UTI 4. Cardiomyopathy, ejection fraction 20-25% on echocardiogram done in December 2020 5. A. fib with RVR 6. Nausea vomiting and diarrhea, currently improved Plan: Resume 50cc/hr IVF over night Continue with midodrine Repeat labs in a.m. Accurate I's and O's Encourage increased oral intake.
[2021-06-24] MEDS ORDERED: SODIUM CHLORIDE 0.9% 1,000 ML IV SCH (16:30)
[2021-06-24 16:46] LABS: Glucose,Whole Blood 118 mg/dL (75-99)
[2021-06-24] MEDS ORDERED: WARFARIN 1.5 MG TAB PO ONE (18:00)
[2021-06-24 20:47] LABS: Glucose,Whole Blood 167 mg/dL (75-99)
[2021-06-24] MEDS: ATORVASTATIN 10 MG TAB PO SCH (20:47)
[2021-06-24] MEDS ORDERED: WARFARIN 1 MG TAB PO SCH (21:00)
[2021-06-25 06:29] LABS: Glucose,Whole Blood 118 mg/dL (75-99)
[2021-06-25] MEDS: INSULIN ASPART (NovoLOG) 100 UNIT/ML VIAL SQ SCH ×4 (06:42→21:25)
[2021-06-25] MEDS: LEVOTHYROXINE 25 MCG TAB PO SCH (06:44)
[2021-06-25] MEDS: MIDODRINE 5 MG TAB PO SCH ×3 (06:44→17:07)
[2021-06-25 08:09] LABS: INR 2.6 (<1.2); Prothrombin Time 25.8 sec (9.0-12.0)
[2021-06-25 08:13] LABS: Calcium 8.9 mg/dL (8.4-10.2); Potassium 3.9 mmol/L (3.5-5.1)
[2021-06-25] MEDS: AMIODARONE 100 MG TAB PO SCH (09:33)
[2021-06-25] MEDS: LOPERAMIDE 2 MG CAP PO SCH ×2 (09:33→21:25)
[2021-06-25] MEDS: MAGNESIUM OXIDE 400 MG TAB PO SCH (09:33)
[2021-06-25] MEDS: SACUBITRIL/VALSARTAN 24 MG-26 MG TABLET PO SCH ×2 (09:34→21:24)
[2021-06-25] MEDS: glipiZIDE 5 MG TAB PO SCH ×2 (09:34→21:25)
--- NOTE | 2021-06-25 10:14 | P.PN ---
Subjective Progress Note Date: 06/25/21 HISTORY OF PRESENT ILLNESS: This is a 86-year-old female with a past medical history significant for hypertension, hyperlipidemia, diabetes, congestive heart failure, cardiomyopathy, severe mitral regurgitation, and biventricular AICD implantation. Patient follows in the office with Dr. Rucker. We have been asked to see the patient in consultation for hypotension. Patient examined at the bedside. Patient presented to the ER with a chief complaint of weakness. She reports impaired balance. She reports nausea in the morning with excessive burping and then vomiting at home. She reports decreased oral intake. She reports losing 2 pounds last week. She denies having any shortness of breath at the time of examination. She denies any chest pain or pressure. Patient was foun d to be hypotensive with a SBP in the 70s. She denies any dizziness or lightheadedness. She denies any chest pain or pressure. It is noted that the patient has been hospitalized multiple times this year. Most recently in May 2021. Patient underwent right-sided thoracentesis at that time. * EKG reveals ventricular paced rhythm * Chest xray small right pleural effusion without definite evidence for acute process. COPD changes. * Laboratory data: WBC 6.6. Hemoglobin 15.2. Platelet count 160. INR 2.3. Sodium 139. Potassium 3.5. BUN 120. Creatinine 2.96. Lactic acid 1.4. Magnesium 2.9. Troponin negative 1. ProBNP 5740. * Current home cardiac medications include Midodrine 10 mg 3 times a day, Coumadin 1.5 mg Tuesday and 1 mg Tuesday, Aldactone 25 mg daily, Zocor 20 mg at night, Lasix 40 mg twice a day, amiodarone 200 mg daily, metoprolol succinate 100 mg at night, and Entresto 24-26mg BID. * Most recent echocardiogram obtained in December 2020 revealed ejection fraction 20-25%, mild aortic regurgitation, severe mitral regurgitation, mild tricuspid regurgitation, and large pleural effusion * Cardiac catheterization history: 2007 revealing normal coronary arteries 06/24/2021 Patient examined this morning at the bedside. Patient states she is feeling better today. She denies chest pain or pressure. She denies shortness of breath. Denies any further episodes of vomiting or diarrhea. She states she has been up ambulating to the bathroom without dizziness or lightheadedness. Patient's blood pressure remains stable with a systolic in the 90s. Kidney function slightly improved today with a creatinine of 2.52, down from 2.96. 06/25/2021 Patient examined this morning at the bedside. Patient denies chest pain or pressure. She denies shortness of breath. She denies dizziness or lightheadedness. She states that she feels overall very weak. She has been receiving IV fluids. Patient's creatinine has improved today to 1.88. Echocardiogram completed revealing ejection fraction 20-25%, moderate to severe mitral regurgitation, trace to mild aortic regurgitation, and mild tricuspid regurgitation. PHYSICAL EXAM: VITAL SIGNS: Reviewed. GENERAL: Well-developed in no acute distress. HEENT: Head is normocephalic. Pupils are equal, round. Sclerae anicteric. Mucous membranes of the mouth are moist. Neck supple. No JVD or thyromegaly LUNGS: Respirations even and unlabored. Lungs diminished with a few crackles at the bases. HEART: Regular rate and rhythm. S1 and S2 heard. Systolic murmur noted. ABDOMEN: Soft. Nondistended. Nontender. EXTREMITIES: Normal range of motion. No clubbing or cyanosis. Peripheral pulses intact. No lower extremity edema NEUROLOGIC: Awake and alert. Oriented x 3. ASSESSMENT: Generalized weakness Acute on chronic kidney injury Hypotension Nonischemic cardiomyopathy with AICD implantation Persistent atrial fibrillation Hypertension Hyperlipidemia Diabetes History of congestive heart failure with reduced ejection fraction Severe mitral regurgitation History of recurrent pleural effusion, status post right-sided thoracentesis in May 2021 PLAN: Continue current cardiac medications Continue to monitor blood pressure and hold blood pressure medications for systolic blood pressure less than 90 Nephrology following for acute kidney injury. Continue to monitor kidney function Discontinue IV fluids as kidney function is improving and patient was noted to have a few crackles this morning Check orthostatic blood pressures Patient may benefit from Jardiance for her heart failure and diabetes. This can further be discussed on an outpatient basis. Further recommendations pending patient's course Nurse practitioner note has been reviewed by physician. Signing provider agrees with the documented findings, assessment, and plan of care. Objective - Vital Signs Vital signs: Vital Signs Temp 97.7 F 06/25/21 09:24 Pulse 65 06/25/21 09:24 Resp 18 06/25/21 09:24 BP 105/57 06/25/21 09:24 Pulse Ox 95 06/25/21 09:24 Intake & Output 06/24/21 06/25/21 06/25/21 18:59 06:59 18:59 Intake Total 480 Balance 480 Intake: Oral 480 Other: Voiding Method Toilet # Voids 2 1 # Bowel Movements 1 - Labs CBC & Chem 7: 06/23/21 08:23 06/25/21 07:35 Labs: Abnormal Lab Results - Last 24 Hours (Table) 06/24/21 06/24/21 06/24/21 Range/Units 11:38 16:21 20:39 PT (9.0-12.0) sec INR (<1.2) BUN (7-17) mg/dL Creatinine (0.52-1.04) mg/dL Glucose (74-99) mg/dL POC Glucose (mg/dL) 219 H 118 H 167 H (75-99) mg/dL 06/25/21 06/25/21 06/25/21 Range/Units 06:27 07:35 07:36 PT 25.8 H (9.0-12.0) sec INR 2.6 H (<1.2) BUN 73 H (7-17) mg/dL Creatinine 1.88 H (0.52-1.04) mg/dL Glucose 148 H (74-99) mg/dL POC Glucose (mg/dL) 118 H (75-99) mg/dL
--- NOTE | 2021-06-25 10:50 | P.PN ---
Subjective Progress Note Date: 06/25/21 HISTORY OF PRESENT ILLNESS 86-year-old female one of my office patient who was hospitalized in May 2105/24/2021 for right-sided pleural effusion with worsening dyspnea and shortness of breath mild respiratory failure, was hospitalized again early from April 30 of 05/08/2021 for CHF exacerbation found to have pleural effusion which had thoracentesis fourth of the time came back to be transudate mostly with no cancer cells no exudate or infection. Patient was seen in the office twice since her last discharge also was seen her java sybase developer and further change in medication was made. patient apparently has not been feeling well last few days major complaint and concern that she have severe exertional shortness of breath with minimum exertion along with severe fatigue and tiredness she had poor appetite with mild nausea no vomiting she denies any black stools or tarry stool. Her last thoracentesis was in May 23 for over 2000 mL of transudative fluid was done. [facility] consistent with positive UA for UTI, BUN of 135 with creatinine of 3.37 has an acute kidney injury with chronic kidney disease. Hemoglobin was 17 with hematocrit 51.1 with normal WBC. Patient was started on gentle hydration and admitted to the hospital was diagnosed with acute kidney injury with chronic kidney disease. 06/23: Patient remains in the ER waiting for bed on the cardiac stepdown unit. Family member is at bedside. Patient afebrile, heart rate 70, blood pressure 88/48, pulse ox 94% on room air. Repeat blood work reveals a normal CBC. INR is 2.3. Watch lites normal. Renal function is improved with BUN greater than 120 and creatinine 2.96. Blood sugar 58 this morning. AST 72 and ALT 68. Urine culture is in progress. Patient started on Rocephin for UTI. Patient has been seen by nephrology for acute kidney injury, hypovolemic hypotension with recommendations to continue IV hydration, midodrine and repeat labs, I&O. Patient is also been seen by cardiology and echocardiogram has been ordered, home medications resumed and amiodarone decreased to 100 mg daily and chest stroke decreased to half twice daily, hold all blood pressure medications for systolic less than 90. Repeat blood work has been ordered for tomorrow. Renal ultrasound reveals nonobstructing left renal stones. Bilateral renal cyst. 06/24: Patient is seen today on the cardiac stepdown unit. She continues to be followed by nephrology for acute kidney injury with recommendations to continue IV hydration, midodrine, I&O's and repeat blood work. Cardiology is also following an echocardiogram report is pending. Patient remains afebrile, heart rate 70, blood pressure 96/61, pulse ox 97% on room air. INR 2.6, potassium 3.4 BUN 104, creatinine 2.52. Blood sugars are running between 136 and 219. AST 61 and ALT 66. Patient states that she is very weak and not sure that she can manage at home when she is not able to stand to cook and etc. for herself. Consult placed with PT and OT for possible subacute rehab and also discussed going home with palliative care. 06/25: Orthostatic vital signs this morning were negative. She has been afebrile, heart rate in the 60s and 70s, blood pressure 105/57, pulse ox 95% on room air. Patient is continued on midodrine at the higher dose of 10 mg 3 times daily. INR is 2.6, BUN 73 creatinine 1.88. Currently blood glucose running between 118 and 167. Cardiology is following and recommends Giardia and's as an outpatient. IV fluids discontinued. Discharge plan is for [facility] for subacute rehab. Anticipate patient will be ready for discharge by tomorrow. REVIEW OF SYSTEMS Constitutional: No fever, no chills, no night sweats. Reports weight change. Reports weakness, reports fatigue no lethargy. No daytime sleepiness. EENT: No headache. No blurred vision or double vision, no loss of vision. No loss of Hearing, no ringing in the ears, no dizziness. No nasal drainage or congestion. No epistaxis. No sore throat. Lungs: Reports shortness of breath, no cough, no sputum production. No wheezing. Cardiovascular: No chest pain, no lower extremity edema. No palpitations. No paroxysmal nocturnal dyspnea. Reports orthopnea. No lightheadedness or dizziness. No syncopal episodes. Abdominal: No abdominal pain. No nausea, vomiting. No diarrhea. No constipation. No bloody or tarry stools.. No loss of appetite. Genitourinary: No dysuria, increased frequency, urgency. No urinary retention. Musculoskeletal: No myalgias. Reports muscle weakness, no gait dysfunction, no frequent falls. No back pain. No neck pain. Integumentary: No wounds, no lesions. No rash or pruritus. No unusual bruising. No change in hair or nails. Neurologic: No aphasia. No facial droop. No change in mentation. No head injury. No headache. No paralysis. No paresthesia. Psychiatric: No depression. No anxiety. No mood swings. Endocrine: No abnormal blood sugars. Reports weight change. No excessive sweating or thirst. No cold intolerance. PHYSICAL EXAMINATION Gen: This is an 86-year-old female. She is resting in a recliner and appears to be comfortable and in no acute distress. HEENT: Head is atraumatic, normocephalic. Pupils equal, round. Sclerae is anicteric. NECK: Supple. No JVD. No lymphadenopathy. No thyromegaly. LUNGS: Diminished to the bilateral bases, greater on the right. No intercostal retractions. HEART: Irregularly irregular rhythm with systolic murmur. ABDOMEN: Soft. Bowel sounds are present. No masses. No tenderness. EXTREMITIES: No pedal edema. No calf tenderness. NEUROLOGICAL: Patient is awake, alert and oriented x3. Cranial nerves 2 through 12 are grossly intact. ASSESSMENT AND PLAN 1 severe dyspnea and shortness of breath: Advanced cardiomyopathy and congestive heart failure we'll continue current management and treatment. 2 acute kidney failure with chronic kidney disease. Renal function is improving. Nephrology consult appreciated. IV fluids discontinued, continue midodrine at increased dose, monitor I&O. 3 chronic respiratory distress on acute component secondary to CHF, cardiomyopathy, pleural effusion and pulmonary hypertension. 4 nonischemic cardiopathy status post AICD. Continue Entresto at half tablet 24 mg26 mg twice daily. 5 A. fib with RVR, persistent atrial fibrillation. Continue Coumadin, pharmacy is dosing Coumadin. Continue patient on amiodarone 100 mg daily. 6 hypothyroidism: Continue patient on levothyroxine 25 g daily. 7 type 2 diabetes: Resume glipizide along with NovoLog sliding scales coverage. 8 severe mitral regurgitation: Still seen cardiology no intervention required at this point. 9 hypotension: Specially with the use of her heart failure medication the blood pressure become quite bit low and titrate midodrine up to 10 mg 3 times a day. 10 hyperlipidemia: Continue patient on atorvastatin 10 mg daily. 11 GI prophylaxis: Patient be on Pepcid 20 mg daily. 12 DVT prophylaxis: Continue anticoagulation with warfarin INR is done and daily basis. 13. Generalized debility. PT and OT consults for possible subacute rehab CODE STATUS: Full code. DISCHARGE PLAN Subacute rehab at [facility] on Tuesday. Impression and plan of care have been directed as dictated by the signing physician. Nicole Park nurse practitioner acting as scribe for signing physician. Objective - Vital Signs Vital signs: Vital Signs Temp 97.7 F 06/25/21 09:24 Pulse 65 06/25/21 09:24 Resp 18 06/25/21 09:24 BP 105/57 06/25/21 09:24 Pulse Ox 95 06/25/21 09:24 Intake & Output 06/24/21 06/25/21 06/25/21 18:59 06:59 18:59 Intake Total 480 Balance 480 Intake: Oral 480 Other: Voiding Method Toilet # Voids 2 1 # Bowel Movements 1 - Labs CBC & Chem 7: 06/23/21 08:23 06/25/21 07:35 Labs: Abnormal Lab Results - Last 24 Hours (Table) 06/24/21 06/24/21 06/24/21 Range/Units 11:38 16:21 20:39 PT (9.0-12.0) sec INR (<1.2) BUN (7-17) mg/dL Creatinine (0.52-1.04) mg/dL Glucose (74-99) mg/dL POC Glucose (mg/dL) 219 H 118 H 167 H (75-99) mg/dL 06/25/21 06/25/21 06/25/21 Range/Units 06:27 07:35 07:36 PT 25.8 H (9.0-12.0) sec INR 2.6 H (<1.2) BUN 73 H (7-17) mg/dL Creatinine 1.88 H (0.52-1.04) mg/dL Glucose 148 H (74-99) mg/dL POC Glucose (mg/dL) 118 H (75-99) mg/dL
[2021-06-25 11:46] LABS: Glucose,Whole Blood 149 mg/dL (75-99)
--- NOTE | 2021-06-25 12:08 | P.PN ---
Subjective Pt is seen for f/u for JUSTIN, pre renal and associated with hypotensio. Good UOP. Renal function has improved. Pt is feeling much better. Tolerating oral intake. No n/v/d Status post normal saline at 50 mL an hour overnight Objective - Vital Signs Vital signs: Vital Signs Temp 97.7 F 06/25/21 09:24 Pulse 65 06/25/21 11:31 Resp 18 06/25/21 11:31 BP 105/57 06/25/21 10:39 Pulse Ox 95 06/25/21 09:24 Intake & Output 06/24/21 06/25/21 06/25/21 18:59 06:59 18:59 Intake Total 480 Balance 480 Intake: Oral 480 Other: Voiding Method Toilet Toilet # Voids 2 1 # Bowel Movements 1 - Exam Pt is awake, comfortable, not in acute distress. Alert and oriented x3. Lungs are clear CVS S1 and S2 Abdomen is soft, nontender. Extremities show no edema. RESIDENT HALL DIRECTOR exam is intact. - Labs CBC & Chem 7: 06/23/21 08:23 06/25/21 07:35 Labs: Abnormal Lab Results - Last 24 Hours (Table) 06/24/21 06/24/21 06/25/21 Range/Units 16:21 20:39 06:27 PT (9.0-12.0) sec INR (<1.2) BUN (7-17) mg/dL Creatinine (0.52-1.04) mg/dL Glucose (74-99) mg/dL POC Glucose (mg/dL) 118 H 167 H 118 H (75-99) mg/dL 06/25/21 06/25/21 06/25/21 Range/Units 07:35 07:36 11:45 PT 25.8 H (9.0-12.0) sec INR 2.6 H (<1.2) BUN 73 H (7-17) mg/dL Creatinine 1.88 H (0.52-1.04) mg/dL Glucose 148 H (74-99) mg/dL POC Glucose (mg/dL) 149 H (75-99) mg/dL Assessment and Plan Assessment: 1. Acute kidney injury prerenal and from hypovolemia currently nonoliguric. Improving 2. Hypovolemia, hypotension improving with IV fluids 3. Pyuria, rule out UTI 4. Cardiomyopathy, ejection fraction 20-25% on echocardiogram done in December 2020 5. A. fib with RVR 6. Nausea vomiting and diarrhea, currently improved Plan: Continue to encourage increase oral intake Repeat labs in a.m.
[2021-06-25 16:41] LABS: Glucose,Whole Blood 154 mg/dL (75-99)
[2021-06-25] MEDS ORDERED: WARFARIN 1 MG TAB PO ONE (18:00)
[2021-06-25 20:34] LABS: Glucose,Whole Blood 154 mg/dL (75-99)
[2021-06-25] MEDS: ATORVASTATIN 10 MG TAB PO SCH (21:25)
[2021-06-26 06:07] LABS: Glucose,Whole Blood 92 mg/dL (75-99)
[2021-06-26] MEDS: INSULIN ASPART (NovoLOG) 100 UNIT/ML VIAL SQ SCH ×2 (06:12→12:05)
[2021-06-26] MEDS: LEVOTHYROXINE 25 MCG TAB PO SCH (06:56)
[2021-06-26] MEDS: MIDODRINE 5 MG TAB PO SCH ×2 (06:58→12:04)
[2021-06-26 09:15] LABS: INR 2.3 (<1.2); Prothrombin Time 22.8 sec (9.0-12.0)
--- NOTE | 2021-06-26 10:11 | P.DS ---
Providers Date of admission: 06/22/21 20:16 Expected date of discharge: 06/26/21 Attending physician: Alberto Solomon Consults: 06/22/21 20:23 Consult Physician Urgent Consulting Provider: Danielle Rainey Consult Reason/Comments: hypotension, ronald, dehydration Do you want consulting provider notified?: Yes 06/22/21 21:30 Consult Physician Urgent Consulting Provider: [facility] Consult Reason/Comments: hypotension, chf hx Do you want consulting provider notified?: Yes [facility] Course: HISTORY OF PRESENT ILLNESS 86-year-old female one of my office patient who was hospitalized in May 2105/24/2021 for right-sided pleural effusion with worsening dyspnea and shortness of breath mild respiratory failure, was hospitalized again early from April 30 of 05/08/2021 for CHF exacerbation found to have pleural effusion which had thoracentesis fourth of the time came back to be transudate mostly with no can cer cells no exudate or infection. Patient was seen in the office twice since her last discharge also was seen her paper bags sewing machine operator and further change in medication was made. patient apparently has not been feeling well last few days major complaint and concern that she have severe exertional shortness of breath with minimum exertion along with severe fatigue and tiredness she had poor appetite with mild nausea no vomiting she denies any black stools or tarry stool. Her last thoracentesis was in May 23 for over 2000 mL of transudative fluid was done. Patient was seen and evaluated [facility] finding consistent with positive UA for UTI, BUN of 135 with creatinine of 3.37 has an acute kidney injury with chronic kidney disease. Hemoglobin was 17 with hematocrit 51.1 with normal WBC. Patient was started on gentle hydration and admitted to the hospital was diagnosed with acute kidney injury with chronic kidney disease. 06/23: Patient remains in the ER waiting for bed on the cardiac stepdown unit. Family member is at bedside. Patient afebrile, heart rate 70, blood pressure 88/48, pulse ox 94% on room air. Repeat blood work reveals a normal CBC. INR i s 2.3. Watch lites normal. Renal function is improved with BUN greater than 120 and creatinine 2.96. Blood sugar 58 this morning. AST 72 and ALT 68. Urine culture is in progress. Patient started on Rocephin for UTI. Patient has been seen by nephrology for acute kidney injury, hypovolemic hypotension with recommendations to continue IV hydration, midodrine and repeat labs, I&O. Patient is also been seen by cardiology and echocardiogram has been ordered, home medications resumed and amiodarone decreased to 100 mg daily and chest stroke decreased to half twice daily, hold all blood pressure medications for systolic less than 90. Repeat blood work has been ordered for tomorrow. Renal ultrasound reveals nonobstructing left renal stones. Bilateral renal cyst. 06/24: Patient is seen today on the cardiac stepdown unit. She continues to be followed by nephrology for acute kidney injury with recommendations to continue IV hydration, midodrine, I&O's and repeat blood work. Cardiology is also following an echocardiogram report is pending. Patient remains afebrile, heart rate 70, blood pressure 96/61, pulse ox 97% on room air. INR 2.6, potassium 3.4 BUN 104, creatinine 2.52. Blood sugars are running between 136 and 219. AST 61 and ALT 66. Patient states that she is very weak and not sure that she can manage at home when she is not able to stand to cook and etc. for herself. Consult placed with PT and OT for possible subacute rehab and also discussed going home with palliative care. 06/25: Orthostatic vital signs this morning were negative. She has been afebrile, heart rate in the 60s and 70s, blood pressure 105/57, pulse ox 95% on room air. Patient is continued on midodrine at the higher dose of 10 mg 3 times daily. INR is 2.6, BUN 73 creatinine 1.88. Currently blood glucose running between 118 and 167. Cardiology is following and recommends Giardia and's as an outpatient. IV fluids discontinued. Discharge plan is for [facility] for subacute rehab. Anticipate patient will be ready for discharge by tomorrow. 06/26: Patient denies any new complaints today. Patient has been afebrile, heart rate 70, blood pressure 97/59, pulse ox 96% on room air. INR is therapeutic at 2.3. Patient had adjustments made to many of her medications which will be continued at the snf. Discharge plan is for subacute rehab and patient will be discharged today once all arrangements are completed. DISCHARGE DIAGNOSES 1 severe dyspnea and shortness of breath: Advanced cardiomyopathy and congestive heart failure 2 acute kidney failure with chronic kidney disease. 3 chronic respiratory distress on acute component secondary to CHF, cardiomyopathy, pleural effusion and pulmonary hypertension. 4 nonischemic cardiopathy status post AICD. 5 A. fib with RVR, persistent atrial fibrillation. 6 hypothyroidism 7 type 2 diabetes 8 severe mitral regurgitation 9 hypotension 10 hyperlipidemia DISCHARGE PLAN Subacute rehab at [facility] Greater than 35 minutes was utilized and coordinating patient's discharge. Impression and plan of care have been directed as dictated by the signing physician. Nicole Park nurse practitioner acting as scribe for signing physician. Patient Condition at Discharge: Stable Plan - Discharge Summary Discharge Rx Participant: No New Discharge Prescriptions: New Amiodarone [Cordarone] 100 mg PO DAILY tab Sacubitril/Valsartan [Entresto 24 mg-26 mg Tablet] 0.5 each PO BID@0900,2100 tablet Empagliflozin [Jardiance] 10 mg PO DAILY #30 tablet Continue Simvastatin [Zocor] 20 mg PO HS@2100 Magnesium Chloride [Mag64] 64 mg PO DAILY@0700 Levothyroxine Sodium [Synthroid] 25 mcg PO DAILY@0700 Warfarin [Coumadin] 1 mg PO SUTUTH@2100 Warfarin [Coumadin] 1.5 mg PO MOWEFRSA@2100 calcium polycarbophiL [Fibercon] 625 mg PO DAILY PRN PRN Reason: Constipation Loperamide [Imodium] 2 mg PO BID@0900,2100 Triamcinolone 0.1% Ointment [Kenalog 0.1% Ointment] 1 applic TOPICAL DAILY@0900 Midodrine HCl [ProAmatine] 10 mg PO TID-W/MEALS Cetirizine HCl 10 mg PO DAILY PRN PRN Reason: Allergy Symptoms Furosemide [Lasix] 40 mg PO BID@0900,1600 Changed Spironolactone [Aldactone] 12.5 mg PO DAILY@0900 #0 Discontinued Amiodarone [Cordarone] 200 mg PO DAILY@0900 Sacubitril/Valsartan [Entresto 24 mg-26 mg Tablet] 1 tab PO BID@0900,2100 metOLazone 2.5 mg PO MOTH@1600 glipiZIDE [Glucotrol] 5 mg PO BID@0900,2100 Metoprolol Succinate [Toprol XL] 100 mg PO HS@2100 Discharge Medication List Magnesium Chloride [Mag64] 64 mg PO DAILY@0700 10/22/15 [History] Simvastatin [Zocor] 20 mg PO HS@209910/22/15 [History] Levothyroxine Sodium [Synthroid] 25 mcg PO DAILY@0700 03/30/18 [History] Warfarin [Coumadin] 1 mg PO SUTUTH@209903/30/18 [History] Warfarin [Coumadin] 1.5 mg PO MOWEFRSA@209903/30/18 [History] calcium polycarbophiL [Fibercon] 625 mg PO DAILY PRN 11/19/18 [History] Cetirizine HCl 10 mg PO DAILY PRN 11/21/20 [History] Loperamide [Imodium] 2 mg PO BID@0900,209904/29/21 [History] Triamcinolone 0.1% Ointment [Kenalog 0.1% Ointment] 1 applic TOPICAL DAILY@0900 04/29/21 [History] Furosemide [Lasix] 40 mg PO BID@0900,1600 05/21/21 [History] Midodrine HCl [ProAmatine] 10 mg PO TID-W/MEALS 06/22/21 [History] Amiodarone [Cordarone] 100 mg PO DAILY tab 06/26/21 [Rx] Empagliflozin [Jardiance] 10 mg PO DAILY #30 tablet 06/26/21 [Rx] Sacubitril/Valsartan [Entresto 24 mg-26 mg Tablet] 0.5 each PO BID@0900,2100 tablet 06/26/21 [Rx] Spironolactone [Aldactone] 12.5 mg PO DAILY@0900 #0 06/26/21 [Rx] Follow up Appointment(s)/Referral(s): Alberto Solomon MD [Primary Care Provider] - 1 Week (at [facility]) Discharge Disposition: TRANSFER TO SNF/ECF
[2021-06-26] MEDS: MAGNESIUM OXIDE 400 MG TAB PO SCH (10:17)
[2021-06-26] MEDS: glipiZIDE 5 MG TAB PO SCH (10:17)
[2021-06-26] MEDS: LOPERAMIDE 2 MG CAP PO SCH (10:17)
[2021-06-26] MEDS: AMIODARONE 100 MG TAB PO SCH (10:18)
[2021-06-26] MEDS: SACUBITRIL/VALSARTAN 24 MG-26 MG TABLET PO SCH (10:18)
--- NOTE | 2021-06-26 10:31 | P.PN ---
Subjective Pt is seen for f/u for JUSTIN, pre renal and associated with hypotension. Good UOP. Renal function has improved. Pt is feeling much better. Tolerating oral intake. No n/v/d Status post normal saline at 50 mL overnight 2 days ago Complaining of weakness today and headache as patient did not get good sleep Objective - Vital Signs Vital signs: Vital Signs Temp 98.1 F 06/26/21 04:00 Pulse 70 06/26/21 10:13 Resp 15 06/26/21 10:13 BP 95/53 06/26/21 10:13 Pulse Ox 100 06/26/21 10:13 Intake & Output 06/25/21 06/26/21 06/26/21 18:59 06:59 18:59 Intake Total 1100 120 Balance 1100 120 Intake: Oral 1100 120 Other: Voiding Method Toilet Toilet # Voids 1 1 - Exam Pt is awake, comfortable, not in acute distress. Alert and oriented x3. Lungs are clear CVS S1 and S2 Abdomen is soft, nontender. Extremities show no edema. DIRECTOR OF OPERATIONS SUPPORT exam is intact. - Labs CBC & Chem 7: 06/23/21 08:23 06/25/21 07:35 Labs: Abnormal Lab Results - Last 24 Hours (Table) 06/25/21 06/25/21 06/25/21 Range/Units 11:45 16:39 20:30 PT (9.0-12.0) sec INR (<1.2) POC Glucose (mg/dL) 149 H 154 H 154 H (75-99) mg/dL 06/26/21 Range/Units 08:38 PT 22.8 H (9.0-12.0) sec INR 2.3 H (<1.2) POC Glucose (mg/dL) (75-99) mg/dL Assessment and Plan Assessment: 1. Acute kidney injury prerenal and from hypovolemia currently nonoliguric. Improving 2. Hypovolemia, hypotension improving with IV fluids 3. Pyuria, rule out UTI 4. Cardiomyopathy, ejection fraction 20-25% on echocardiogram done in December 2020 5. A. fib with RVR 6. Nausea vomiting and diarrhea, currently improved Plan: Continue to encourage increase oral intake Continue to hold diuretics.
[2021-06-26 11:53] LABS: Glucose,Whole Blood 182 mg/dL (75-99)
[2021-06-26 12:04] VITALS: BP 100/58; PULSE 72; RESP 16; TEMP 98
--- NOTE | 2021-06-26 12:26 | P.PN ---
Subjective Progress Note Date: 06/26/21 HISTORY OF PRESENT ILLNESS: This is a 86-year-old female with a past medical history significant for hypertension, hyperlipidemia, diabetes, congestive heart failure, cardiomyopathy, severe mitral regurgitation, and biventricular AICD implantation. Patient follows in the office with Dr. Rucker. We have been asked to see the patient in consultation for hypotension. Patient examined at the bedside. Patient presented to the ER with a chief complaint of weakness. She reports impaired balance. She reports nausea in the morning with excessive burping and then vomiting at home. She reports decreased oral intake. She reports losing 2 pounds last week. She denies having any shortness of breath at the time of examination. She denies any chest pain or pressure. Patient was foun d to be hypotensive with a SBP in the 70s. She denies any dizziness or lightheadedness. She denies any chest pain or pressure. It is noted that the patient has been hospitalized multiple times this year. Most recently in May 2021. Patient underwent right-sided thoracentesis at that time. * EKG reveals ventricular paced rhythm * Chest xray small right pleural effusion without definite evidence for acute process. COPD changes. * Laboratory data: WBC 6.6. Hemoglobin 15.2. Platelet count 160. INR 2.3. Sodium 139. Potassium 3.5. BUN 120. Creatinine 2.96. Lactic acid 1.4. Magnesium 2.9. Troponin negative 1. ProBNP 5740. * Current home cardiac medications include Midodrine 10 mg 3 times a day, Coumadin 1.5 mg Tuesday and 1 mg Tuesday, Aldactone 25 mg daily, Zocor 20 mg at night, Lasix 40 mg twice a day, amiodarone 200 mg daily, metoprolol succinate 100 mg at night, and Entresto 24-26mg BID. * Most recent echocardiogram obtained in December 2020 revealed ejection fraction 20-25%, mild aortic regurgitation, severe mitral regurgitation, mild tricuspid regurgitation, and large pleural effusion * Cardiac catheterization history: 2007 revealing normal coronary arteries 06/24/2021 Patient examined this morning at the bedside. Patient states she is feeling better today. She denies chest pain or pressure. She denies shortness of breath. Denies any further episodes of vomiting or diarrhea. She states she has been up ambulating to the bathroom without dizziness or lightheadedness. Patient's blood pressure remains stable with a systolic in the 90s. Kidney function slightly improved today with a creatinine of 2.52, down from 2.96. 06/25/2021 Patient examined this morning at the bedside. Patient denies chest pain or pressure. She denies shortness of breath. She denies dizziness or lightheadedness. She states that she feels overall very weak. She has been receiving IV fluids. Patient's creatinine has improved today to 1.88. Echocardiogram completed revealing ejection fraction 20-25%, moderate to severe mitral regurgitation, trace to mild aortic regurgitation, and mild tricuspid regurgitation. 06/26/2021 Patient examined this morning at the bedside. Patient denies chest pain or pressure. She denies shortness of breath. She continues to report generalized weakness. Vital signs are stable. PHYSICAL EXAM: VITAL SIGNS: Reviewed. GENERAL: Well-developed in no acute distress. HEENT: Head is normocephalic. Pupils are equal, round. Sclerae anicteric. Mucous membranes of the mouth are moist. Neck supple. No JVD or thyromegaly LUNGS: Respirations even and unlabored. Lungs diminished with a few crackles at the bases. HEART: Regular rate and rhythm. S1 and S2 heard. Systolic murmur noted. ABDOMEN: Soft. Nondistended. Nontender. EXTREMITIES: Normal range of motion. No clubbing or cyanosis. Peripheral pulses intact. No lower extremity edema NEUROLOGIC: Awake and alert. Oriented x 3. ASSESSMENT: Generalized weakness Acute on chronic kidney injury Hypotension Nonischemic cardiomyopathy with AICD implantation Persistent atrial fibrillation Hypertension Hyperlipidemia Diabetes History of congestive heart failure with reduced ejection fraction Severe mitral regurgitation History of recurrent pleural effusion, status post right-sided thoracentesis in May 2021 PLAN: Patient is stable for discharge home today on current cardiac medications She is to follow up on an outpatient basis Nurse practitioner note has been reviewed by physician. Signing provider agrees with the documented findings, assessment, and plan of care. Objective - Vital Signs Vital signs: Vital Signs Temp 98.0 F 06/26/21 12:00 Pulse 72 06/26/21 12:00 Resp 16 06/26/21 12:00 BP 100/58 06/26/21 12:00 Pulse Ox 98 06/26/21 12:00 Intake & Output 0506/26/21 06/26/21 18:59 06:59 18:59 Intake Total 1100 120 Balance 1100 120 Intake: Oral 1100 120 Other: Voiding Method Toilet Toilet Toilet # Voids 1 1 - Labs CBC & Chem 7: 06/23/21 08:23 06/25/21 07:35 Labs: Abnormal Lab Results - Last 24 Hours (Table) 06/25/21 06/25/21 06/26/21 Range/Units 16:39 20:30 08:38 PT 22.8 H (9.0-12.0) sec INR 2.3 H (<1.2) POC Glucose (mg/dL) 154 H 154 H (75-99) mg/dL 06/26/21 Range/Units 11:50 PT (9.0-12.0) sec INR (<1.2) POC Glucose (mg/dL) 182 H (75-99) mg/dL
[2021-06-26] MEDS ORDERED: WARFARIN 1.5 MG TAB PO ONE (18:00)
[2021-06-28] MEDS ORDERED: WARFARIN 1 MG TAB PO SCH (21:00)
== END 2021-06-26 14:29 | DRG 683 ==
LOC: EC 14:42 → 3SCARD 20:16
PROVIDERS: ADMIT Internal Medicine Geriatric Medicine; ATTEND Internal Medicine Geriatric Medicine
DX: N17.9 Acute kidney failure, unspecified (principal); I13.0 Hypertensive heart and chronic kidney disease with heart failure and stage 1 through stage 4 chronic kidney disease, or unspecified chronic kidney disease; I48.19 Other persistent atrial fibrillation; N39.0 Urinary tract infection, site not specified; I42.8 Other cardiomyopathies; I50.22 Chronic systolic (congestive) heart failure; N18.4 Chronic kidney disease, stage 4 (severe); E03.9 Hypothyroidism, unspecified; E11.22 Type 2 diabetes mellitus with diabetic chronic kidney disease; E78.5 Hyperlipidemia, unspecified; E86.0 Dehydration; E86.1 Hypovolemia; I27.20 Pulmonary hypertension, unspecified; R06.03 Acute respiratory distress; J44.9 Chronic obstructive pulmonary disease, unspecified; N20.0 Calculus of kidney; N28.1 Cyst of kidney, acquired; I08.3 Combined rheumatic disorders of mitral, aortic and tricuspid valves; Z66 Do not resuscitate; Z79.01 Long term (current) use of anticoagulants; Z79.84 Long term (current) use of oral hypoglycemic drugs; Z79.890 Hormone replacement therapy; Z79.899 Other long term (current) drug therapy; Z28.311 Partially vaccinated for COVID-19; Z80.3 Family history of malignant neoplasm of breast; Z80.51 Family history of malignant neoplasm of kidney; Z80.8 Family history of malignant neoplasm of other organs or systems; Z82.0 Family history of epilepsy and other diseases of the nervous system; Z82.5 Family history of asthma and other chronic lower respiratory diseases; Z85.828 Personal history of other malignant neoplasm of skin; Z90.710 Acquired absence of both cervix and uterus; Z95.810 Presence of automatic (implantable) cardiac defibrillator; Z88.8 Allergy status to other drugs, medicaments and biological substances; Z91.048 Other nonmedicinal substance allergy status
CPT/HCPCS: 36415; 71046; 76770; 80048; 80053; 81001; 83605; 83735; 83880; 84484; 85025; 85610; 85730; 87086; 87502; 87635; 93005; 93306; 94760; 96361; 96374; 96375; 99285

== ENCOUNTER 2021-08-09 12:46 | Emergency (ER) | payer MEDICARE, BC ==
[2021-08-09 12:50] VITALS: BP 116/66; PULSE 75; RESP 16; TEMP 97.8
[2021-08-09] MEDS ORDERED: DIPH,PERTUS(ACELL)TETVAC-LF 0.5 ML VIAL IM ONE (13:00)
--- NOTE | 2021-08-09 13:06 | ED ---
General Adult HPI - General Chief complaint: Extremity Injury, Upper Stated complaint: lt hand injury Time Seen by Provider: 08/09/21 12:50 Source: patient, RN notes reviewed, old records reviewed Mode of arrival: ambulatory Limitations: no limitations - History of Present Illness Initial comments: 86-year-old female presents to the emergency room ambulatory with complaints of falling in the garden yesterday on an outstretched left arm. She states increased swelling and bruising to wrist and hand today with pain with movement. She states that she is on Coumadin for "leaky heart valves". States her last tetanus shot was 2015. She does have history of heart disease and diabetes. -: days(s) (1) Location: left, upper extremity (hand / wrist) Radiation: non-radiation Severity scale (1-10): 8 Quality: aching, constant Consistency: constant Improves with: immobilization Worsens with: movement Associated Symptoms: denies other symptoms - Related Data Home Medications Medication Instructions Recorded Confirmed Magnesium Chloride [Mag64] 64 mg PO DAILY@0700 10/22/15 06/22/21 Simvastatin [Zocor] 20 mg PO HS@209910/22/15 06/22/21 Levothyroxine Sodium [Synthroid] 25 mcg PO DAILY@0700 03/30/18 06/22/21 Warfarin [Coumadin] 1 mg PO SUTUTH@209903/30/18 06/22/21 Warfarin [Coumadin] 1.5 mg PO MOWEFRSA@209903/30/18 06/22/21 calcium polycarbophiL [Fibercon] 625 mg PO DAILY PRN 11/19/18 06/22/21 Cetirizine HCl 10 mg PO DAILY PRN 11/21/20 06/22/21 Loperamide [Imodium] 2 mg PO BID@0900,2100 04/29/21 06/22/21 Triamcinolone 0.1% Ointment 1 applic TOPICAL DAILY@0900 04/29/21 06/22/21 [Kenalog 0.1% Ointment] Furosemide [Lasix] 40 mg PO BID@0900,1600 05/21/21 06/22/21 Midodrine HCl [ProAmatine] 10 mg PO TID-W/MEALS 06/22/21 06/22/21 Previous Rx's Medication Instructions Recorded Amiodarone [Cordarone] 100 mg PO DAILY tab 06/26/21 Empagliflozin [Jardiance] 10 mg PO DAILY #30 tablet 06/26/21 Sacubitril/Valsartan [Entresto 24 0.5 each PO BID@0900,2100 tablet 06/26/21 mg-26 mg Tablet] Spironolactone [Aldactone] 12.5 mg PO DAILY@0900 #0 06/26/21 Allergies Allergy/AdvReac Type Severity Reaction Status Date / Time quinidine Allergy Rash/Hives Verified 08/09/21 12:50 CLEAR PLASTIC TAPE Allergy Rash/Hives Uncoded 08/09/21 12:50 Review of Systems ROS Statement: Those systems with pertinent positive or pertinent negative responses have been documented in the HPI. ROS Other: All systems not noted in ROS Statement are negative. Past Medical History Past Medical History: Cancer, Heart Failure, Diabetes Mellitus, Hyperlipidemia, Osteoarthritis (OA), Skin Disorder, Vascular Disorder Additional Past Medical History / Comment(s): basal cell skin cancer, rash on face, History of Any Multi-Drug Resistant Organisms: None Reported Past Surgical History: AICD, Appendectomy, Bladder Surgery, Bowel Resection, Cholecystectomy, Heart Catheterization, Hysterectomy, Tonsillectomy, Tubal Ligation Additional Past Surgical History / Comment(s): venogram/fluoroscopy, neema catar acts, Past Anesthesia/Blood Transfusion Reactions: No Reported Reaction Type of Cardiac Device: AICD Device Placement Date:: 2007 Past Psychological History: No Psychological Hx Reported Smoking Status: Never smoker Past Alcohol Use History: None Reported Past Drug Use History: None Reported - Past Family History Father Family Medical History: Cancer Mother Family Medical History: Cancer Sister(s) Family Medical History: Cancer, Deep Vein Thrombosis (DVT) Additional Family Medical History / Comment(s): skin cancer Brother(s) History Unknown: Yes Family Medical History: Cancer Additional Family Medical History / Comment(s): skin cancer General Exam Limitations: no limitations General appearance: alert, in no apparent distress Head exam: Present: atraumatic, normocephalic, normal inspection Eye exam: Absent: scleral icterus, conjunctival injection, periorbital swelling, periorbital tenderness Neck exam: Present: normal inspection. Absent: tenderness, meningismus Respiratory exam: Present: rales (Right lower lobe). Absent: respiratory distress, accessory muscle use, decreased breath sounds Cardiovascular Exam: Present: regular rate Left Elbow exam: Present: full ROM. Absent: tenderness, swelling Forearm Wrist exam: Present: full ROM. Absent: tenderness, swelling Hand Wrist exam: Present: tenderness, swelling, abrasion (dorsum hand), ecchymosis Neuro motor exam: Present: thumb IP flexion intact, thumb adduction intact, fingers 2-5 abduction intact Neurosensory exam: Present: radial nerve intact, ulnar nerve intact, other (Pain with flexion and extension of wrist) Vascular: Present: normal capillary refill, radial pulse. Absent: vascular compromise Neurological exam: Present: alert, oriented X3, normal gait Psychiatric exam: Present: normal affect, normal mood Skin exam: Present: warm, dry. Absent: cyanosis, diaphoretic Course Vital Signs 08/09/21 12:47 Temperature 97.8 F Pulse Rate 75 Respiratory 16 Rate Blood Pressure 116/66 O2 Sat by Pulse 95 Oximetry Medical Decision Making - Medical Decision Making X-ray of the left hand and wrist shows demineralization no acute fracture. There are severe degenerative changes. Extensive bruising is likely related to the use of Coumadin. Patient does have good range of motion, radial ulnar and medial nerves are intact. Pulses are present. Patient tetanus shot was updated and Tylenol for pain. Patient was placed in an [place] wrap directed to follow up with her primary care doctor next week. She was directed to remove the wrap daily to observe the skin watch for signs of infection as there is a small abrasion on the dorsum of her hand. She is agreeable to this plan of care. Rest ice and elevate. Case discussed with Dr. Owens Disposition Clinical Impression: Contusion of hand, left Disposition: HOME SELF-CARE Condition: Good Instructions (If sedation given, give patient instructions): Contusion in Adults (ED), Hand Sprain (ED) Additional Instructions: Rest, ice, elevate and wear the [place] wrap for compression. Return to the emergency room with any new or concerning symptoms including increased pain, numbness or tingling or pallor. Tylenol as needed for pain. Is patient prescribed a controlled substance at d/c from ED?: No Referrals: Alberto Solomon MD [Primary Care Provider] - 1-2 days Time of Disposition: 14:23
[2021-08-09] MEDS ORDERED: ACETAMINOPHEN TAB 325 MG TAB PO STA (13:32)
--- NOTE | 2021-08-09 13:45 | XR ---
EXAMINATION TYPE: XR hand complete LT, XR wrist complete LT DATE OF EXAM: 08/09/2021 1:31 PM INDICATION: Patient age:Female; 86 years old; Reason for study: fall pain; COMPARISON: None TECHNIQUE: Frontal, lateral and oblique views of the left hand and wrist FINDINGS: Diffuse osseous demineralization. There is severe degenerative changes at the first tarsome tatarsal joint and the third digit proximal interphalangeal joint. No displaced fracture definitely v isualized. No acute osseous pathology is identified. IMPRESSION: 1. Diffuse osseous demineralization which limits evaluation for subtle fractures. No gross evidence f or acute fracture. 2. Severe degenerative changes at the first tarsometatarsal joint and proximal interphalangeal joint third digit.
== END 2021-08-09 14:33 | disposition home or self-care (01) ==
LOC: EC 12:46
DX: S60.222A Contusion of left hand, initial encounter (principal); Z23 Encounter for immunization; E11.9 Type 2 diabetes mellitus without complications; I50.9 Heart failure, unspecified; E78.5 Hyperlipidemia, unspecified; M19.90 Unspecified osteoarthritis, unspecified site; Z79.01 Long term (current) use of anticoagulants; Z79.890 Hormone replacement therapy; Z79.899 Other long term (current) drug therapy; W19.XXXA Unspecified fall, initial encounter
CPT/HCPCS: 90471; 90715; 99284

== ENCOUNTER → 2021-10-23 | Outpatient (CLI) | payer MEDICARE, BC ==
[2021-10-23 12:25] LABS: Creatinine,Urine Random 40.9 mg/dL; Protein/Creatinine Ratio,Urine 0.367
[2021-10-23 18:20] LABS: HCT 52.5 % (37.2-46.3); HGB 16.9 g/dL (12.0-15.0); MCH 30.7 pg (27.0-32.0); MCHC 32.2 g/dL (32.0-37.0); MCV 95.3 fL (80.0-97.0); Mean Platelet Volume 12.3 fL (9.5-12.2); NRBC Per 100 WBC 0 /100 WBCS (0.0-0.0); Platelet Count 179 X 10*3/uL (140-440); RBC 5.51 X 10*6/uL (4.10-5.20); RDW 13.7 % (11.5-14.5); WBC 6.14 X 10*3/uL (4.50-10.00)
[2021-10-23 19:20] LABS: ALT 29 U/L (8-44); AST 36 U/L (13-35); African American GFR (CKD) 22.5 (60.0-200.0); Albumin 4.7 g/dL (3.8-4.9); Albumin/Globulin Ratio 1.71 (1.60-3.17); Alkaline Phosphatase 73 U/L (41-126); BUN/Creat Ratio 16.27 Ratio (12.00-20.00); Blood Urea Nitrogen 35.8 mg/dL (9.0-27.0); Calcium 9.8 mg/dL (8.7-10.3); Chloride 101 mmol/L (96-109); Chol/HDL Ratio 2.84 Ratio; Globulin 2.7 g/dL (1.6-3.3); Glucose 134 mg/dL (70-110); LDL Cholesterol,Calculated 70.4 mg/dL (0.0-131.0); Magnesium 2.6 mg/dL (1.5-2.4); Non-African American GFR(CKD) 19.4 (60.0-200.0); Phosphorus 3.9 mg/dL (2.4-5.1); Potassium 4.2 mmol/L (3.5-5.5); Sodium 143 mmol/L (135-145); Total Protein 7.4 g/dL (6.2-8.2)
[2021-10-23 23:33] LABS: Appearance,Urine Clear (Clear); Bilirubin,Urine Negative (Negative); Blood,Urine Negative (Negative); Color,Urine Yellow (Yellow); Ketones,Urine Negative (Negative); Nitrite,Urine Negative (Negative); PH, Urine 6.5 (5.0-8.0); Specific Gravity,Urine 1.012 (1.001-1.030); Urobilinogen,Urine 0.2 (0.2,1.0)
[2021-10-24 01:00] LABS: Bacteria,Urine 3+ /HPF (None Seen)
== END | disposition home or self-care (01) ==
LOC: LABWHC1 10:32
PROVIDERS: ATTEND Nurse Practitioner Acute Care
DX: E55.9 Vitamin D deficiency, unspecified (principal); D63.1 Anemia in chronic kidney disease; N18.9 Chronic kidney disease, unspecified; N39.0 Urinary tract infection, site not specified; N25.81 Secondary hyperparathyroidism of renal origin; R80.9 Proteinuria, unspecified
CPT/HCPCS: 36415; 80053; 80061; 81001; 82306; 82570; 83735; 83970; 84100; 84156; 85027

== ENCOUNTER → 2021-11-19 | Outpatient (CLI) | payer MEDICARE, BC ==
[2021-11-19 14:59] LABS: Basophils # (A) 0.06 X 10*3/uL (0.00-0.10); Basophils % (A) 0.9 %; Eosinophils % (A) 1.6 %; HCT 48.2 % (37.2-46.3); HGB 15.3 g/dL (12.0-15.0); Immature Grans, Automated 0.3 %; Lymphocytes # (A) 2.06 X 10*3/uL (0.90-5.00); Lymphocytes % (A) 32.4 %; MCH 30.1 pg (27.0-32.0); MCHC 31.7 g/dL (32.0-37.0); MCV 94.7 fL (80.0-97.0); Mean Platelet Volume 12.5 fL (9.5-12.2); Monocytes # (A) 0.45 X 10*3/uL (0.20-1.00); Monocytes % (A) 7.1 %; NRBC Per 100 WBC 0 /100 WBCS (0.0-0.0); Neutrophils # (A) 3.67 X 10*3/uL (1.80-7.70); Neutrophils % (A) 57.7 %; Platelet Count 160 X 10*3/uL (140-440); RBC 5.09 X 10*6/uL (4.10-5.20); RDW 14.1 % (11.5-14.5); WBC 6.36 X 10*3/uL (4.50-10.00)
[2021-11-19 15:53] LABS: ALT 25 U/L (8-44); AST 31 U/L (13-35); African American GFR (CKD) 37.8 (60.0-200.0); Albumin 4.3 g/dL (3.8-4.9); Albumin/Globulin Ratio 1.85 (1.60-3.17); Alkaline Phosphatase 77 U/L (41-126); Blood Urea Nitrogen 37.9 mg/dL (9.0-27.0); Calcium 9.5 mg/dL (8.7-10.3); Carbon Dioxide 22.7 mmol/L (20.0-27.5); Chloride 106 mmol/L (96-109); Chol/HDL Ratio 2.68 Ratio; Globulin 2.3 g/dL (1.6-3.3); Glucose 123 mg/dL (70-110); LDL Cholesterol,Calculated 57.2 mg/dL (0.0-131.0); Non-African American GFR(CKD) 32.6 (60.0-200.0); Potassium 4.1 mmol/L (3.5-5.5); Sodium 144 mmol/L (135-145); Total Protein 6.6 g/dL (6.2-8.2)
== END | disposition home or self-care (01) ==
LOC: LABWHC1 08:08
PROVIDERS: ATTEND Internal Medicine Geriatric Medicine
DX: I48.0 Paroxysmal atrial fibrillation (principal); I42.9 Cardiomyopathy, unspecified; E11.65 Type 2 diabetes mellitus with hyperglycemia; E78.2 Mixed hyperlipidemia
CPT/HCPCS: 36415; 80053; 80061; 83036; 84439; 84443; 85025

== ENCOUNTER → 2022-02-05 | Outpatient (CLI) | payer MEDICARE, BC ==
[2022-02-05 12:28] LABS: Protein/Creatinine Ratio,Urine 0.272
[2022-02-05 15:36] LABS: Basophils # (A) 0.05 X 10*3/uL (0.00-0.10); Basophils % (A) 0.7 %; Eosinophils # (A) 0.17 X 10*3/uL (0.04-0.35); Eosinophils % (A) 2.5 %; HCT 45.9 % (37.2-46.3); HGB 15.1 g/dL (12.0-15.0); Immature Grans, Automated 0.1 %; Lymphocytes # (A) 1.97 X 10*3/uL (0.90-5.00); Lymphocytes % (A) 29.2 %; MCHC 32.9 g/dL (32.0-37.0); MCV 94.3 fL (80.0-97.0); Mean Platelet Volume 12.4 fL (9.5-12.2); Monocytes # (A) 0.46 X 10*3/uL (0.20-1.00); Monocytes % (A) 6.8 %; NRBC Per 100 WBC 0 /100 WBCS (0.0-0.0); Neutrophils # (A) 4.08 X 10*3/uL (1.80-7.70); Neutrophils % (A) 60.7 %; Platelet Count 174 X 10*3/uL (140-440); RBC 4.87 X 10*6/uL (4.10-5.20); RDW 14.1 % (11.5-14.5); WBC 6.74 X 10*3/uL (4.50-10.00)
[2022-02-05 15:59] LABS: ALT 23 U/L (8-44); AST 24 U/L (13-35); African American GFR (CKD) 34.8 (60.0-200.0); Albumin 4.3 g/dL (3.8-4.9); Albumin/Globulin Ratio 1.79 (1.60-3.17); Alkaline Phosphatase 79 U/L (41-126); BUN/Creat Ratio 24.77 Ratio (12.00-20.00); Blood Urea Nitrogen 37.9 mg/dL (9.0-27.0); Calcium 9.5 mg/dL (8.7-10.3); Carbon Dioxide 26.1 mmol/L (20.0-27.5); Chloride 106 mmol/L (96-109); Chol/HDL Ratio 2.63 Ratio; Globulin 2.4 g/dL (1.6-3.3); Glucose 134 mg/dL (70-110); LDL Cholesterol,Calculated 63.1 mg/dL (0.0-131.0); Magnesium 2.3 mg/dL (1.5-2.4); Non-African American GFR(CKD) 30.1 (60.0-200.0); Phosphorus 3.5 mg/dL (2.4-5.1); Potassium 4.7 mmol/L (3.5-5.5); Sodium 144 mmol/L (135-145); Total Protein 6.7 g/dL (6.2-8.2)
[2022-02-05 16:41] LABS: Appearance,Urine Clear (Clear); Bilirubin,Urine Negative (Negative); Blood,Urine Trace (Negative); Color,Urine Yellow (Yellow); Ketones,Urine Negative (Negative); Nitrite,Urine Negative (Negative); Specific Gravity,Urine 1.015 (1.001-1.030); Urobilinogen,Urine 0.2 (0.2,1.0)
[2022-02-05 16:43] LABS: Bacteria,Urine 2+ /HPF (None Seen)
[2022-02-05 19:27] LABS: Urine Creatinine 84.4 mg/dL (28.0-217.0)
== END | disposition home or self-care (01) ==
LOC: LABWHC1 09:04
PROVIDERS: ATTEND Internal Medicine
DX: I48.0 Paroxysmal atrial fibrillation (principal); E11.65 Type 2 diabetes mellitus with hyperglycemia; E11.22 Type 2 diabetes mellitus with diabetic chronic kidney disease; E21.3 Hyperparathyroidism, unspecified; E55.9 Vitamin D deficiency, unspecified; N18.32 Chronic kidney disease, stage 3b; N39.0 Urinary tract infection, site not specified; D63.1 Anemia in chronic kidney disease
CPT/HCPCS: 36415; 80053; 80061; 81001; 82043; 82306; 82570; 83036; 83735; 83970; 84100; 84156; 84439; 84443; 85025

== ENCOUNTER → 2022-03-09 | Outpatient (CLI) | payer MEDICARE, BC ==
--- NOTE | 2022-03-09 13:02 | XR ---
EXAMINATION TYPE: XR chest 2V DATE OF EXAM: 03/09/2022 12:53 PM COMPARISON: Chest radiographs from 06/22/2021 TECHNIQUE: XR chest 2V Frontal and lateral views of the chest. CLINICAL INDICATION:Female, 86 years old with history of J90; FINDINGS: Lungs/Pleura: There is a right pleural effusion which has increased in size. Trace left pleural effus ion suggested. Pulmonary vascularity: Unremarkable. Heart/mediastinum: Cardiomediastinal silhouette is enlarged and stable. Single-lead cardiac conductio n device overlying the left hemithorax with lead projecting over the right ventricle. Musculoskeletal: No acute osseous pathology. IMPRESSION: 1. Increase in size of right pleural effusion with stable left trace pleural effusion suggested.. 2. Similar cardiomegaly.
== END | disposition home or self-care (01) ==
LOC: RADXRMAIN 12:26
PROVIDERS: ATTEND Internal Medicine Geriatric Medicine
DX: I51.7 Cardiomegaly (principal); J90 Pleural effusion, not elsewhere classified
CPT/HCPCS: 71046

== ENCOUNTER 2022-03-10 17:49 | Inpatient (IN) | payer MEDICARE, BC ==
[2022-03-10 18:48] LABS: Basophils # (A) 0.1 k/uL (0-0.2); Basophils % (A) 1 %; Eosinophils # (A) 0.1 k/uL (0-0.7); Eosinophils % (A) 1 %; HGB 16.1 gm/dL (11.4-16.0); Lymphocytes # (A) 1.5 k/uL (1.0-4.8); Lymphocytes % (A) 25 %; MCH 31.3 pg (25.0-35.0); MCHC 33.6 g/dL (31.0-37.0); MCV 93.4 fL (80.0-100.0); Monocytes # (A) 0.3 k/uL (0-1.0); Monocytes % (A) 6 %; Neutrophils # (A) 3.9 k/uL (1.3-7.7); Neutrophils % (A) 65 %; Platelet Count 154 k/uL (150-450); RBC 5.14 m/uL (3.80-5.40); RDW 13.1 % (11.5-15.5)
[2022-03-10 18:58] LABS: Albumin 4.8 g/dL (3.5-5.0); Calcium 9.5 mg/dL (8.4-10.2); Magnesium 2.2 mg/dL (1.6-2.3); Potassium 4.5 mmol/L (3.5-5.1); Total Bilirubin 1.6 mg/dL (0.2-1.3); Total Protein 7.8 g/dL (6.3-8.2)
--- NOTE | 2022-03-10 19:02 | XR ---
EXAMINATION TYPE: XR chest 2V DATE OF EXAM: 03/10/2022 COMPARISON: 03/09/2022 HISTORY: Short of breath TECHNIQUE: FINDINGS: There is some pulmonary vascular congestion. There is blunting right costophrenic angle. He art is slightly enlarged. There is left axillary pacemaker. IMPRESSION: Mild congestive heart failure with right pleural effusion. Pulmonary congestion slightly increased compared to yesterday.
[2022-03-10 19:07] LABS: Partial Thromboplastin Time 33.6 sec (22.0-30.0)
--- NOTE | 2022-03-10 20:58 | ED ---
General Adult HPI - General Chief complaint: Shortness of Breath Stated complaint: sob Time Seen by Provider: 03/10/22 18:15 Source: patient, RN notes reviewed, old records reviewed Mode of arrival: ambulatory Limitations: no limitations - History of Present Illness Initial comments: This is an 78-year-old female who presents emergency department stating that she's becoming more more short of breath over the last 2 weeks. Patient states she has fluid in the lungs and has had it drained occasionally. Patient states this is exactly what this feels like today. Patient states she tried to get it done yesterday but was unable to so she decided come the emergency department today. Patient denies any chest pain or palpitations. Patient denies any recent fever chills or cough. Patient denies any abdominal pain. Patient denies any lightheadedness or dizziness patient states exertion makes the shortness of breath worse - Related Data Home Medications Medication Instructions Recorded Confirmed Magnesium Chloride [Mag64] 64 mg PO DAILY@0700 10/22/15 06/22/21 Simvastatin [Zocor] 20 mg PO HS@209910/22/15 06/22/21 Levothyroxine Sodium [Synthroid] 25 mcg PO DAILY@0700 03/30/18 06/22/21 Warfarin [Coumadin] 1 mg PO SUTUTH@209903/30/18 06/22/21 Warfarin [Coumadin] 1.5 mg PO MOWEFRSA@209903/30/18 06/22/21 calcium polycarbophiL [Fibercon] 625 mg PO DAILY PRN 11/19/18 06/22/21 Cetirizine HCl 10 mg PO DAILY PRN 11/21/20 06/22/21 Loperamide [Imodium] 2 mg PO BID@0900,2100 04/29/21 06/22/21 Triamcinolone 0.1% Ointment 1 applic TOPICAL DAILY@0900 04/29/21 06/22/21 [Kenalog 0.1% Ointment] Furosemide [Lasix] 40 mg PO BID@0900,1600 05/21/21 06/22/21 Midodrine HCl [ProAmatine] 10 mg PO TID-W/MEALS 06/22/21 06/22/21 Previous Rx's Medication Instructions Recorded Amiodarone [Cordarone] 100 mg PO DAILY tab 06/26/21 Empagliflozin [Jardiance] 10 mg PO DAILY #30 tablet 06/26/21 Sacubitril/Valsartan [Entresto 24 0.5 each PO BID@0900,2100 tablet 06/26/21 mg-26 mg Tablet] Spironolactone [Aldactone] 12.5 mg PO DAILY@0900 #0 06/26/21 Allergies Allergy/AdvReac Type Severity Reaction Status Date / Time quinidine Allergy Rash/Hives Verified 03/10/22 18:02 CLEAR PLASTIC TAPE Allergy Rash/Hives Uncoded 03/10/22 18:02 Review of Systems ROS Statement: Those systems with pertinent positive or pertinent negative responses have been documented in the HPI. ROS Other: All systems not noted in ROS Statement are negative. Past Medical History Past Medical History: Cancer, Heart Failure, Diabetes Mellitus, Hyperlipidemia, Osteoarthritis (OA), Skin Disorder, Vascular Disorder Additional Past Medical History / Comment(s): basal cell skin cancer, rash on face, History of Any Multi-Drug Resistant Organisms: None Reported Past Surgical History: AICD, Appendectomy, Bladder Surgery, Bowel Resection, Cholecystectomy, Heart Catheterization, Hysterectomy, Tonsillectomy, Tubal Ligation Additional Past Surgical History / Comment(s): venogram/fluoroscopy, neema cataracts, Past Anesthesia/Blood Transfusion Reactions: No Reported Reaction Type of Cardiac Device: AICD Device Placement Date:: 2007 Past Psychological History: No Psychological Hx Reported Smoking Status: Never smoker Past Alcohol Use History: None Reported Past Drug Use History: None Reported - Past Family History Father Family Medical History: Cancer Mother Family Medical History: Cancer Sister(s) Family Medical History: Cancer, Deep Vein Thrombosis (DVT) Additional Family Medical History / Comment(s): skin cancer Brother(s) History Unknown: Yes Family Medical History: Cancer Additional Family Medical History / Comment(s): skin cancer General Exam - General Exam Comments Initial Comments: GENERAL: Patient is well-developed and well-nourished. Patient is nontoxic and well- hydrated and is in mild distress. ENT: Neck is soft and supple. No significant lymphadenopathy is noted. Oropharynx is clear. Moist mucous membranes. Neck has full range of motion without eliciting any pain. EYES: The sclera were anicteric and conjunctiva were pink and moist. Extraocular movements were intact and pupils were equal round and reactive to light. Eyelids were unremarkable. PULMONARY: Breath sounds are diminished on the right side CARDIOVASCULAR: There is a regular rate and rhythm without any murmurs gallops or rubs. ABDOMEN: Soft and nontender with normal bowel sounds. No palpable organomegaly was noted. There is no palpable pulsatile mass. SKIN: Skin is clear with no lesions or rashes and otherwise unremarkable. NEUROLOGIC: Patient is alert and oriented x3. Cranial nerves II through XII are grossly intact. Motor and sensory are also intact. Normal speech, volume and content. Symmetrical smile. MUSCULOSKELETAL: Normal extremities with adequate strength and full range of motion. No lower extremity swelling or edema. No calf tenderness. LYMPHATICS: No significant lymphadenopathy is noted PSYCHIATRIC: Normal psychiatric evaluation. Limitations: no limitations Course Vital Signs 03/10/22 17:59 Temperature 98.0 F Pulse Rate 69 Respiratory 20 Rate Blood Pressure 118/74 O2 Sat by Pulse 96 Oximetry Medical Decision Making - Medical Decision Making EKG was interpreted by myself. EKG shows electronically paced rhythm at 69 bpm QRS is 203 QT interval 504 QTC is 524. Patient's EKG shows no ST segment elevation or depression Was pt. sent in by a medical professional or institution (, PA, IT SPECIALIST, urgent care, hospital, or group home...) When possible be specific @ -No Did you speak to anyone other than the patient for history (EMS, parent, family, police, friend...)? What history was obtained from this source @ -No Did you review nursing and triage notes (agree or disagree)? Why? @ -I reviewed and agree with nursing and triage notes Were old charts reviewed (outside hosp., previous admission, EMS record, old EKG, old radiological studies, urgent care reports/EKG's, group home records)? Report findings @ -I reviewed previous chest x-rays and compared to this chest x-ray. Differential Diagnosis (chest pain, altered mental status, abdominal pain women, abdominal pain men, vaginal bleeding, weakness, fever, dyspnea, syncope, headache, dizziness, GI bleed, back pain, seizure, CVA, palpatations, mental health)? @ -Differential Dyspnea: Coronary syndrome, arrhythmia, tamponade, asthma, COPD, pulmonary embolism, pneumonia, pneumothorax, pulmonary effusion, anaphylaxis, diabetic ketoacidosis, flailed chest, pulmonary contusion, diaphragmatic rupture, anemia, neuromuscular, this is not meant to be an all-inclusive list. EKG interpreted by me (3pts min.). @ -As above X-rays interpreted by me (1pt min.). @ -There is interpreted by myself chest x-ray shows a large right-sided pleural effusion somewhat to the effusion seen in previous x-rays when the patient needed thoracentesis CT interpreted by me (1pt min.). @ -None done U/S interpreted by me (1pt. min.). @ -None done What testing was considered but not performed or refused? (CT, X-rays, U/S, labs)? Why? @ -None What meds were considered but not given or refused? Why? @ -None Did you discuss the management of the patient with other professionals (professionals i.e. , PA, IT SPECIALIST, lab, RT, psych nurse, social work associate, preschool education director, teacher, public information officer, home health care case manager)? Give summary @ -[facility] the patient patient wrote admitting orders Was smoking cessation discussed for >3mins.? @ -No Was critical care preformed (if so, how long)? @ -No Were there social determinants of health that impacted care today? How? (Homelessness, low income, unemployed, alcoholism, drug addiction, tr ansportation, low edu. Level, literacy, decrease access to med. care, correction, rehab)? @ -No Was there de-escalation of care discussed even if they declined (Discuss DNR or withdrawal of care, Hospice)? DNR status @ -No What co-morbidities impacted this encounter? (DM, HTN, Smoking, COPD, CAD, Cancer, CVA, ARF, Chemo, Hep., AIDS, mental health diagnosis, sleep apnea, morbid obesity)? @ -None Was patient admitted / discharged? Hospital course, mention meds given and route, prescriptions, significant lab abnormalities, going to OR and other pertinent info. @ -To be admitted I will consult pulmonary. This will be for right-sided pleural effusion and dyspnea Undiagnosed new problem with uncertain prognosis? @ -No Drug Therapy requiring intensive monitoring for toxicity (Heparin, Nitro, Insulin, Cardizem)? @ -No Were any procedures done? @ -No Diagnosis/symptom? @ -Pleural effusion, dyspnea Acute, or Chronic, or Acute on Chronic? @ -Acute on chronic Uncomplicated (without systemic symptoms) or Complicated (systemic symptoms)? @ -Uncomplicated Side effects of treatment? @ -No Exacerbation, Progression, or Severe Exacerbation? @ -No Poses a threat to life or bodily function? How? (Chest pain, [place], [place], pneumonia, PE, COPD, DKA, ARF, appy, cholecystitis, CVA, Diverticulitis, Homicidal, Suicidal, threat to staff... and all critical care pts) @ -No - Lab Data Result diagrams: 03/10/22 18:28 03/10/22 18:28 Lab Results 03/10/22 03/10/22 03/10/22 Range/Units 18:28 18:28 18:28 WBC 6.0 (3.8-10.6) k/uL RBC 5.14 (3.80-5.40) m/uL Hgb 16.1 H (11.4-16.0) gm/dL Hct 48.0 H (34.0-46.0) % MCV 93.4 (80.0-100.0) fL MCH 31.3 (25.0-35.0) pg MCHC 33.6 (31.0-37.0) g/dL RDW 13.1 (11.5-15.5) % Plt Count 154 (150-450) k/uL MPV 9.0 Neutrophils % 65 % Lymphocytes % 25 % Monocytes % 6 % Eosinophils % 1 % Basophils % 1 % Neutrophils # 3.9 (1.3-7.7) k/uL Lymphocytes # 1.5 (1.0-4.8) k/uL Monocytes # 0.3 (0-1.0) k/uL Eosinophils # 0.1 (0-0.7) k/uL Basophils # 0.1 (0-0.2) k/uL PT 29.0 H (9.0-12.0) sec INR 3.0 H (<1.2) APTT 33.6 H (22.0-30.0) sec D-Dimer 0.51 (<0.60) mg/L FEU Sodium 144 (137-145) mmol/L Potassium 4.5 (3.5-5.1) mmol/L Chloride 107 (98-107) mmol/L Carbon Dioxide 26 (22-30) mmol/L Anion Gap 11 mmol/L BUN 41 H (7-17) mg/dL Creatinine 1.73 H (0.52-1.04) mg/dL Est GFR (CKD-EPI)AfAm 30 (>60 ml/min/1.73 sqM) Est GFR (CKD-EPI)NonAf 26 (>60 ml/min/1.73 sqM) Glucose 149 H (74-99) mg/dL Calcium 9.5 (8.4-10.2) mg/dL Magnesium 2.2 (1.6-2.3) mg/dL Total Bilirubin 1.6 H (0.2-1.3) mg/dL AST 31 (14-36) U/L ALT 25 (4-34) U/L Alkaline Phosphatase 75 (38-126) U/L Troponin I (0.000-0.034) ng/mL NT-Pro-B Natriuret Pep pg/mL Total Protein 7.8 (6.3-8.2) g/dL Albumin 4.8 (3.5-5.0) g/dL 03/10/22 03/10/22 Range/Units 18:28 18:28 WBC (3.8-10.6) k/uL RBC (3.80-5.40) m/uL Hgb (11.4-16.0) gm/dL Hct (34.0-46.0) % MCV (80.0-100.0) fL MCH (25.0-35.0) pg MCHC (31.0-37.0) g/dL RDW (11.5-15.5) % Plt Count (150-450) k/uL MPV Neutrophils % % Lymphocytes % % Monocytes % % Eosinophils % % Basophils % % Neutrophils # (1.3-7.7) k/uL Lymphocytes # (1.0-4.8) k/uL Monocytes # (0-1.0) k/uL Eosinophils # (0-0.7) k/uL Basophils # (0-0.2) k/uL PT (9.0-12.0) sec INR (<1.2) APTT (22.0-30.0) sec D-Dimer (<0.60) mg/L FEU Sodium (137-145) mmol/L Potassium (3.5-5.1) mmol/L Chloride (98-107) mmol/L Carbon Dioxide (22-30) mmol/L Anion Gap mmol/L BUN (7-17) mg/dL Creatinine (0.52-1.04) mg/dL Est GFR (CKD-EPI)AfAm (>60 ml/min/1.73 sqM) Est GFR (CKD-EPI)NonAf (>60 ml/min/1.73 sqM) Glucose (74-99) mg/dL Calcium (8.4-10.2) mg/dL Magnesium (1.6-2.3) mg/dL Total Bilirubin (0.2-1.3) mg/dL AST (14-36) U/L ALT (4-34) U/L Alkaline Phosphatase (38-126) U/L Troponin I 0.016 (0.000-0.034) ng/mL NT-Pro-B Natriuret Pep 95382 pg/mL Total Protein (6.3-8.2) g/dL Albumin (3.5-5.0) g/dL Disposition Clinical Impression: Pleural effusion, Dyspnea Disposition: ADMITTED IP TO THIS HOSP Referrals: Alberto Solomon MD [Primary Care Provider] - 1-2 days Time of Disposition: 20:58
[2022-03-11] MEDS ORDERED: PHYTONADIONE 10 MG in SODIUM CHLORIDE 0.9% 50 ML IVPB STA (09:01)
[2022-03-11] MEDS: FUROSEMIDE 10 MG/ML 4 ML VIAL IV SCH ×2 (10:01→21:06)
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
--- NOTE | 2022-03-11 12:00 | P.CNPUL ---
History of Present Illness Consult date: 03/11/22 Requesting physician: Jesus Freitas Reason for consult: pleural effusion Chief complaint: Shortness of breath for approximately 2 weeks History of present illness: I'm seeing this patient in new consultation. today 03/11/22, for new onset shortness of breath lasting approximately 2 weeks. This is a pleasant 86 year- old female with past medical history of congestive heart failure with a baseline ejection fraction of 20%, AICD, previous pleural effusions requiring thoracentesis, atrial fibrillation anticoagulated on Coumadin, diabetes mellitus type 2, CKD, hyperlipidemia, basal cell skin cancer, multiple abdominal surgeries, never smoker. Patient most recently had a right thoracentesis with Dr. Moran on 05/22/2021, which was transudative fluid. patient's chest x-ray on arrival, showed some mild congestive heart failure with right pleural effusion. Patient is sitting comfortably, liters nasal cannula, no acute distress. Patient admits shortness breath for approximately 2 weeks. She denies fever, cough, wheezing, chest pain. Patient is anticoagulated on Coumadin, and her INR yesterday was 3. Patient's BMP on arrival was 10,200. Troponins negative 1. Patient's CBC on arrival is unremarkable, with a WBC count of 6, hemoglobin 16.1, hematocrit 48, platelets 154,000. Patient's BMP on arrival shows a sodium 144, potassium 4.5, chloride 107, serum CO2 26, pO2 141, chronically elevated creatinine 1.73, glucose 149. Patient has not received any Lasix. Vital signs are stable. Review of Systems REVIEW OF SYSTEMS: CONSTITUTIONAL: Denies any recent significant weight loss or weight gain, fever EYES: Denies change in vision. EARS, NOSE, MOUTH, THROAT: Denies headaches, denies sore throat. CARDIOVASCULAR: Denies chest pain, palpitations or syncopal episodes. RESPIRATORY: See HPI GASTROINTESTINAL: Denies change in appetite, abdominal pain, nausea and vomiting, or diarrhea GENITOURINARY: Denies hematuria, denies infections. MUSKULOSKELETAL: Denies pain, denies swelling. INTEGUMENTARY: Denies rash, denies eczema. NEUROLOGICAL: Denies recent memory loss, no recent seizure activity. PSYCHIATRIC: Denies anxiety, denies depression. HEMATOLOGIC/LYMPHATIC: Denies anemia, denies enlarged lymph node Past Medical History Past Medical History: Atrial Fibrillation, Cancer, Heart Failure, Diabetes Angeli itus, Hyperlipidemia, Osteoarthritis (OA), Skin Disorder, Vascular Disorder Additional Past Medical History / Comment(s): basal cell skin cancer, rash on face, History of Any Multi-Drug Resistant Organisms: None Reported Past Surgical History: AICD, Appendectomy, Bladder Surgery, Bowel Resection, Cholecystectomy, Heart Catheterization, Hysterectomy, Tonsillectomy, Tubal Ligation Additional Past Surgical History / Comment(s): venogram/fluoroscopy, neema cataracts, Past Anesthesia/Blood Transfusion Reactions: No Reported Reaction Type of Cardiac Device: AICD Device Placement Date:: 2007 Past Psychological History: No Psychological Hx Reported Smoking Status: Never smoker Past Alcohol Use History: None Reported Past Drug Use History: None Reported - Past Family History Father Family Medical History: Cancer Mother Family Medical History: Cancer Sister(s) Family Medical History: Cancer, Deep Vein Thrombosis (DVT) Additional Family Medical History / Comment(s): skin cancer Brother(s) History Unknown: Yes Family Medical History: Cancer Additional Family Medical History / Comment(s): skin cancer Medications and Allergies Home Medications Medication Instructions Recorded Confirmed Type Simvastatin [Zocor] 20 mg PO HS 10/22/15 03/10/22 History Levothyroxine Sodium [Synthroid] 25 mcg PO AC-BRKFST 03/30/18 03/10/22 History Warfarin [Coumadin] 1 mg PO CALVIN@1700 03/30/18 03/10/22 History Warfarin [Coumadin] 1.5 mg PO MOTUWETHFRSA@1700 03/30/18 03/10/22 History Furosemide [Lasix] 40 mg PO DAILY 05/21/21 03/10/22 History Midodrine HCl [ProAmatine] 10 mg PO TID-W/MEALS 06/22/21 03/10/22 History Amiodarone [Cordarone] 200 mg PO DAILY 03/10/22 03/10/22 History Loperamide HCl [Imodium A-D] 1 mg PO BID 03/10/22 03/10/22 History Sacubitril/Valsartan [Entresto 24 0.5 tab PO BID 03/10/22 03/10/22 History mg-26 mg Tablet] Spironolactone [Aldactone] 12.5 mg PO DAILY 03/10/22 03/10/22 History glipiZIDE 7.5 mg PO BID 03/10/22 03/10/22 History Allergies Allergy/AdvReac Type Severity Reaction Status Date / Time quinidine Allergy Rash/Hives Verified 03/10/22 18:02 CLEAR PLASTIC TAPE Allergy Rash/Hives Uncoded 03/10/22 18:02 Physical Exam Vitals: Vital Signs Temp Pulse Pulse Resp BP BP Pulse Ox 03/11/22 10:35 69 20 114/77 03/11/22 10:13 69 20 126/65 03/11/22 09:04 20 03/11/22 08:43 97.9 F 70 20 115/74 03/11/22 07:09 95 03/11/22 06:00 69 16 115/64 95 03/11/22 00:00 74 16 121/109 93 L 03/10/22 22:00 70 16 120/69 95 03/10/22 17:59 98.0 F 69 20 118/74 96 Intake and Output 03/10/22 03/11/22 03/11/22 22:59 06:59 14:59 Intake Total 120 Balance 120 Intake: Oral 120 Other: Voiding Method Toilet Weight 63.503 kg GENERAL EXAM: Alert, 86-year-old white female, comfortable in no apparent distress. HEAD: Normocephalic and atraumatic EYES: Normal reaction of pupils, equal size. NOSE: Clear with pink turbinates. THROAT: No erythema or exudates. NECK: No masses, no JVD. CHEST: No chest wall deformity. There is a left chest implanted device LUNGS: Equal air entry with no crackles, wheeze, rhonchi. There is dullness on auscultation of the right posterior base. On 1 L nasal cannula. No conversational dyspnea or accessory muscle use.. CVS: S1 and S2 normal with soft systolic murmur heard best at the left sternal border, regular rhythm. No extra heart sounds ABDOMEN: No hepatosplenomegaly, active bowel sounds, no guarding or rigidity. SPINE: No scoliosis or deformity SKIN: No rashes CENTRAL NERVOUS SYSTEM: No focal deficits, tone is normal in all 4 extremities. EXTREMITIES: There is no peripheral edema, clubbing, or cyanosis. Peripheral pulses are intact. Results - Laboratory Findings CBC and BMP: 03/10/22 18:28 03/10/22 18:28 PT/INR, D-dimer PT 29.0 sec (9.0-12.0) H 03/10/22 18:28 INR 3.0 (<1.2) H 03/10/22 18:28 D-Dimer 0.51 mg/L FEU (<0.60) 03/10/22 18:28 Abnormal lab findings: Abnormal Labs 03/10/22 03/10/22 03/10/22 18:28 18:28 18:28 Hgb 16.1 H Hct 48.0 H PT 29.0 H INR 3.0 H APTT 33.6 H BUN 41 H Creatinine 1.73 H Glucose 149 H Total Bilirubin 1.6 H - Diagnostic Findings Chest x-ray: image reviewed Assessment and Plan Assessment: Recurrent right pleural effusion requiring previous thoracentesis. Last recorded thoracentesis with on 05/22/2021. At that time a total of 1.5 L of transudative fluid was removed. Chest x-ray on arrival showed mild congestive heart failure with right pleural effusion. Chronic congestive heart failure with reduced ejection fraction. Previous echocardiogram on 06/23/21 showed a reduced ejection fraction of 20-25%, and moderate to severe mitral regurgitation. Patient does have AICD pacemaker implanted. Patient's BMP arrival was 10,200. History of atrial fibrillation anticoagulated on Coumadin. Patient's heart rhythm is currently ventricularly paced. Diabetes mellitus type 2 [id number]. Chronic kidney disease stage III Hyperlipidemia History of basal cell skin cancer Plan: Patient's medications, labs, chest x-ray reviewed Possible thoracentesis tomorrow We will order a chest ultrasound to evaluate pleural effusion. Hold Coumadin. Give 1 dose of vitamin K, and recheck INR in the morning. In the meantime, we will diurese the patient with Lasix Continue supplemental oxygen to maintain oxygen saturation 92% or greater I have personally seen and examined the patient, performed the documentation and the assessment and plan as written. Number of minutes spent on the visit:20 Time with Patient: Greater than 30
--- NOTE | 2022-03-11 13:38 | US ---
EXAMINATION TYPE: US chest DATE OF EXAM: 03/11/2022 COMPARISON: Chest x-ray one day ago CLINICAL HISTORY: right pleural effusion. pleural effusion TECHNIQUE: Targeted ultrasound of the posterior lower right hemithorax EXAM MEASUREMENTS: Right Pleural Effusion pocket size: 13 cm Right skin surface to fluid distance: 1.3 cm lung tissue visualized 2.5 cm in fluid pocket. Right side marked for possible thoracentesis outside the dept. Pulmonologists are able to review the images in the patient?s EMR. Small to moderate-sized right pleural effusion is confirmed on four ultrasound images saved IMPRESSIONS: As above.
[2022-03-11] MEDS ORDERED: ATORVASTATIN 10 MG TAB PO SCH (21:00)
[2022-03-11] MEDS: SACUBITRIL/VALSARTAN 24 MG-26 MG TABLET PO SCH (21:07)
[2022-03-11 21:41] VITALS: RESP 16
[2022-03-12 05:18] LABS: African American GFR (CKD) 29 (>60 ml/min/1.73 sqM); Anion Gap 8 mmol/L; Blood Urea Nitrogen 45 mg/dL (7-17); Calcium 8.8 mg/dL (8.4-10.2); Carbon Dioxide 29 mmol/L (22-30); Chloride 106 mmol/L (98-107); Glucose 138 mg/dL (74-99); Non-African American GFR(CKD) 26 (>60 ml/min/1.73 sqM); Sodium 143 mmol/L (137-145)
[2022-03-12 05:32] LABS: INR 1.3 (<1.2); Prothrombin Time 13.1 sec (9.0-12.0)
[2022-03-12] MEDS ORDERED: LEVOTHYROXINE 25 MCG TAB PO SCH (07:30)
--- NOTE | 2022-03-12 08:07 | XR ---
EXAMINATION TYPE: XR chest 1V portable DATE OF EXAM: 03/12/2022 HISTORY: Shortness of breath. COMPARISON: 03/10/2022 TECHNIQUE: Single view of the chest is submitted. FINDINGS: Demonstrated are scattered senescent parenchymal change. Increasing Right basilar pleural effusion with underlying progressive atelectasis and/or infiltrate. The heart is stable. Hilar and mediastinal structures are within normal limits. Degenerative changes are seen of the dorsal spine. IMPRESSION: 1. Increasing Right basilar pleural effusion with underlying progressive atelectasis and/or infiltra te.
[2022-03-12] MEDS: SACUBITRIL/VALSARTAN 24 MG-26 MG TABLET PO SCH (08:49)
[2022-03-12] MEDS: FUROSEMIDE 10 MG/ML 4 ML VIAL IV SCH (08:49)
[2022-03-12] MEDS ORDERED: AMIODARONE 200 MG TAB PO SCH (09:00)
[2022-03-12] MEDS ORDERED: SPIRONOLACTONE 25 MG TAB PO SCH (09:00)
--- NOTE | 2022-03-12 13:50 | P.PN ---
Subjective Progress Note Date: 03/12/22 03/12/2022, I'm seeing this patient in follow-up regarding her CHF and a right- sided pleural effusion. Were consulted initially to drain the right-sided pleural effusion. However, on today's evaluation, the patient reports marked improvement with diuresis and she feels that she does need the procedure. We held the Coumadin yesterday family given vitamin K and her INR is down to 1.3. I gave her the chance of having thoracentesis today. The patient declined. In fact, I do not think that the procedure itself is necessary as the patient is feeling better and this pleural effusion has been chronic and has been drained in the past: To be a transudate and the treatment for this is essentially medic al. The patient is currently on diuretics. Her creatinine is stable at 1.7.yopathy. She is on room air oxygen. Objective - Vital Signs Vital signs: Vital Signs Temp 98.2 F 03/12/22 07:20 Pulse 70 03/12/22 07:20 Resp 16 03/12/22 07:20 BP 107/68 03/12/22 07:20 Pulse Ox 95 03/12/22 07:20 FiO2 Intake & Output 03/11/22 03/12/22 03/12/22 18:59 06:59 18:59 Intake Total 356 0 Balance 356 0 Weight 62.6 kg 42.5 kg Intake: Oral 356 0 Other: Voiding Method Toilet Toilet # Voids 1 3 - Exam GENERAL EXAM: Alert, 86-year-old white female, comfortable in no apparent distress. HEAD: Normocephalic and atraumatic EYES: Normal reaction of pupils, equal size. NOSE: Clear with pink turbinates. THROAT: No erythema or exudates. NECK: No masses, no JVD. CHEST: No chest wall deformity. There is a left chest implanted device LUNGS: Equal air entry with no crackles, wheeze, rhonchi. There is dullness on auscultation of the right posterior base. On 1 L nasal cannula. No conversational dyspnea or accessory muscle use.. CVS: S1 and S2 normal with soft systolic murmur heard best at the left sternal border, regular rhythm. No extra heart sounds ABDOMEN: No hepatosplenomegaly, active bowel sounds, no guarding or rigidity. SPINE: No scoliosis or deformity SKIN: No rashes CENTRAL NERVOUS SYSTEM: No focal deficits, tone is normal in all 4 extremities. EXTREMITIES: There is no peripheral edema, clubbing, or cyanosis. Peripheral pulses are intact. - Labs CBC & Chem 7: 03/10/22 18:28 03/12/22 04:33 Labs: Abnormal Lab Results - Last 24 Hours (Table) 03/12/22 03/12/22 Range/Units 04:33 04:33 PT 13.1 H (9.0-12.0) sec INR 1.3 H (<1.2) BUN 45 H (7-17) mg/dL Creatinine 1.76 H (0.52-1.04) mg/dL Glucose 138 H (74-99) mg/dL Assessment and Plan Plan: Recurrent right pleural effusion requiring previous thoracentesis. Last recorded thoracentesis with on 05/22/2021. At that time a total of 1.5 L of transudative fluid was removed. Chest x-ray on arrival showed mild congestive heart failure with right pleural effusion. Chronic congestive heart failure with reduced ejection fraction. Previous echocardiogram on 06/23/21 showed a reduced ejection fraction of 20-25%, and moderate to severe mitral regurgitation. Patient does have AICD pacemaker implanted. Patient's BMP arrival was 10,200. History of atrial fibrillation anticoagulated on Coumadin. Patient's heart rhythm is currently ventricularly paced. Diabetes mellitus type 2 [id number]. Chronic kidney disease stage III Hyperlipidemia History of basal cell skin cancer Plan: Patient is much improved and the patient does not think that she thoracentesis for now. The pleural effusion is chronic. This is a transudate related to her CHF. I do not think there is any immediate need to do the procedure especially the patient is on room air oxygen and she is feeling better. Continue diuretics. Restart Coumadin. Discharge the patient home as the patient is feeling great. She can contact us back in the office if she changes her mind and or she becomes symptomatic.
[2022-03-12 15:40] VITALS: BP 130/73; PULSE 71; TEMP 97.6
[2022-03-12] MEDS ORDERED: WARFARIN 1.5 MG TAB PO SCH (17:00)
[2022-03-14] MEDS ORDERED: WARFARIN 1 MG TAB PO SCH (17:00)
== END 2022-03-12 16:18 | disposition home or self-care (01) | DRG 291 ==
LOC: EC 17:49 → 6NMEDSUR 20:58 → OBSVTOIN 03-12 07:45
PROVIDERS: ADMIT Hospitalist; ATTEND Hospitalist
DX: I13.0 Hypertensive heart and chronic kidney disease with heart failure and stage 1 through stage 4 chronic kidney disease, or unspecified chronic kidney disease (principal); I50.23 Acute on chronic systolic (congestive) heart failure; J96.01 Acute respiratory failure with hypoxia; I42.8 Other cardiomyopathies; E78.5 Hyperlipidemia, unspecified; I34.0 Nonrheumatic mitral (valve) insufficiency; I48.0 Paroxysmal atrial fibrillation; Z79.01 Long term (current) use of anticoagulants; M19.90 Unspecified osteoarthritis, unspecified site; E11.51 Type 2 diabetes mellitus with diabetic peripheral angiopathy without gangrene; E11.22 Type 2 diabetes mellitus with diabetic chronic kidney disease; N18.30 Chronic kidney disease, stage 3 unspecified; Z79.84 Long term (current) use of oral hypoglycemic drugs; Z79.890 Hormone replacement therapy; Z79.899 Other long term (current) drug therapy; Z90.710 Acquired absence of both cervix and uterus; Z87.19 Personal history of other diseases of the digestive system; Z90.49 Acquired absence of other specified parts of digestive tract; Z95.810 Presence of automatic (implantable) cardiac defibrillator; Z91.048 Other nonmedicinal substance allergy status; Z88.8 Allergy status to other drugs, medicaments and biological substances; Z85.828 Personal history of other malignant neoplasm of skin; Z98.51 Tubal ligation status; Z98.42 Cataract extraction status, left eye; Z98.41 Cataract extraction status, right eye
CPT/HCPCS: 36415; 71045; 71046; 76604; 80048; 80053; 83735; 83880; 84484; 85025; 85379; 85610; 85730; 93005; 94760; 96365; 96375; 99285

== ENCOUNTER 2022-04-23 22:53 | Inpatient (IN) | payer MEDICARE, BC ==
--- NOTE | 2022-04-23 23:34 | ED ---
General Adult HPI - General Chief complaint: Shortness of Breath Stated complaint: AMOS Time Seen by Provider: 04/23/22 23:17 Source: patient, EMS Mode of arrival: EMS Limitations: no limitations - History of Present Illness Initial comments: Dictation was produced using [employer] dictation software. please excuse any grammatical, word or spelling errors. Chief Complaint: 78-year-old female multiple comorbidities presents emergency department for acute orthopnea History of Present Illness: Is a year-old female she has multiple cardio pulmonary comorbidities patient's history of COPD, heart failure H fibrillation. She has been feeling a little dyspneic over the last several days. Tonight she went to bed. She is lying down for several hours when all of a sudden she felt very short of breath. She has history of pleural effusion. She reports having a ejection fraction of around 25%. Patient states she sat up and called EMS. Patient started to feel better after sitting up. Denies any fevers. No chest pain. The ROS documented in this emergency department record has been reviewed and confirmed by me. Those systems with pertinent positive or negative responses have been documented in the HPI. All other systems are other negative and/or noncontributory. PHYSICAL EXAM: General Impression: Alert and oriented x3, not in acute distress HEENT: Normocephalic atraumatic, extra-ocular movements intact, pupils equal and reactive to light bilaterally, mucous membranes moist. Cardiovascular: Heart regular rate and rhythm Chest: Able to complete full sentences, no retractions, no tachypnea, mild diffuse crackles Abdomen: abdomen soft, non-tender, non-distended, no organomegaly Musculoskeletal: Pulses present and equal in all extremities, no peripheral edema Motor: no focal deficits noted Neurological: CN II-XII grossly intact, no focal motor or sensory deficits noted Skin: Intact with no visualized rashes Psych: Normal affect and mood ED course: 86-year-old well-appearing female arrives via EMS from home for chief complaint of dyspnea. Vital signs within acceptable limits. Patient and an percent on nonrebreather. Patient placed on 2 L nasal cannula with stable oxygenation. Nursing notes and chart review was performed Was pt. sent in by a medical professional or institution (, PA, SOLAR PROCESS ENGINEER, urgent care, hospital, or fdc...) When possible be specific @ -No Did you speak to anyone other than the patient for history (EMS, parent, family, police, friend...)? What history was obtained from this source @ -Family member at the bedside Did you review nursing and triage notes (agree or disagree)? Why? @ -I reviewed and agree with nursing and triage notes Were old charts reviewed (outside hosp., previous admission, EMS record, old EKG, old radiological studies, urgent care reports/EKG's, fdc records)? Report findings @ -Prior discharge summaries were reviewed. Prior echocardiogram was reviewed Differential Diagnosis (chest pain, altered mental status, abdominal pain women, abdominal pain men, vaginal bleeding, musculoskeletal, weakness, fever, dyspnea, syncope, headache, dizziness, GI bleed, back pain, seizure, CVA, palpatations, mental health)? @ -Differential dyspnea EKG interpreted by me (3pts min.). @ -My EKG interpretation: Ventricular rate 80, ventricular paced rhythm,. Interval to 33, QRS 192, QTc 519. No [place] prolongation, no QTC prolongation, no ST or T-wave changes noted. Overall, this EKG is unremarkable X-rays interpreted by me (1pt min.). @ -Right-sided pleural effusion with signs of congestive heart failure CT interpreted by me (1pt min.). @ -None done U/S interpreted by me (1pt. min.). @ -None done What testing was considered but not performed or refused? (CT, X-rays, U/S, labs)? Why? @ -None What meds were considered but not given or refused? Why? @ -None Did you discuss the management of the patient with other professionals (professionals i.e. , PA, SOLAR PROCESS ENGINEER, lab, RT, psych nurse, mental health social worker, school janitor, teacher, emergency communications officer, case operator)? Give summary @ -Discussed with Dr. Loja for admission Was smoking cessation discussed for >3mins.? @ -No Was critical care preformed (if so, how long)? @ -No Were there social determinants of health that impacted care today? How? (Homelessness, low income, unemployed, alcoholism, drug addiction, transportation, low edu. Level, literacy, decrease access to med. care, group home, rehab)? @ -No Was there de-escalation of care discussed even if they declined (Discuss DNR or withdrawal of care, Hospice)? DNR status @ -No What co-morbidities impacted this encounter? (DM, HTN, Smoking, COPD, CAD, Cancer, CVA, ARF, Chemo, Hep., AIDS, mental health diagnosis, sleep apnea, mor bid obesity)? @ - renal failure Was patient admitted / discharged? Hospital course, mention meds given and route, prescriptions, significant lab abnormalities, going to OR and other pertinent info. @ -86-year-old female presents to the emergency department for acute orthopnea she has history of heart failure with 20-25% ejection fraction seen on most previous cardiogram. Upon arrival to the emergency room she did not appear to be in significant distress. X-ray showed signs of heart failure. Laboratory evaluation shows no evidence of heart failure. She does have mild elevated renal markers which appear to be better than usual. Patient will be admitted for diuresis and cardiology consultation. Undiagnosed new problem with uncertain prognosis? @ -No Drug Therapy requiring intensive monitoring for toxicity (Heparin, Nitro, Insulin, Cardizem)? @ -No Were any procedures done? @ -No Diagnosis/symptom? Acute, or Chronic, or Acute on Chronic? Uncomplicated (without systemic symptoms) or Complicated (systemic symptoms)? @ -1. Acute exacerbation of CHF Side effects of treatment? @ -No Exacerbation, Progression, or Severe Exacerbation? @ -Exacerbation Poses a threat to life or bodily function? How? (Chest pain, USA, MD, pneumonia, PE, COPD, DKA, ARF, appy, cholecystitis, CVA, Diverticulitis, Homicidal, Suicidal, threat to staff... and all critical care pts) @ -Yes - Related Data Home Medications Medication Instructions Recorded Confirmed Simvastatin [Zocor] 20 mg PO HS 10/22/15 03/10/22 Levothyroxine Sodium [Synthroid] 25 mcg PO AC-BRKFST 03/30/18 03/10/22 Warfarin [Coumadin] 1 mg PO CALVIN@169903/30/18 03/10/22 Warfarin [Coumadin] 1.5 mg PO MOTUWETHFRSA@169903/30/18 03/10/22 Furosemide [Lasix] 40 mg PO DAILY 05/21/21 03/10/22 Midodrine HCl [ProAmatine] 10 mg PO TID-W/MEALS 06/22/21 03/10/22 Amiodarone [Cordarone] 200 mg PO DAILY 03/10/22 03/10/22 Loperamide HCl [Imodium A-D] 1 mg PO BID 03/10/22 03/10/22 Sacubitril/Valsartan [Entresto 24 0.5 tab PO BID 03/10/22 03/10/22 mg-26 mg Tablet] Spironolactone [Aldactone] 12.5 mg PO DAILY 03/10/22 03/10/22 glipiZIDE 7.5 mg PO BID 03/10/22 03/10/22 Allergies Allergy/AdvReac Type Severity Reaction Status Date / Time quinidine Allergy Rash/Hives Verified 03/10/22 18:02 CLEAR PLASTIC TAPE Allergy Rash/Hives Uncoded 03/10/22 18:02 Review of Systems ROS Statement: Those systems with pertinent positive or pertinent negative responses have been documented in the HPI. ROS Other: All systems not noted in ROS Statement are negative. Past Medical History Past Medical History: Atrial Fibrillation, Cancer, Heart Failure, Diabetes Mellitus, Hyperlipidemia, Osteoarthritis (OA), Skin Disorder, Vascular Disorder Additional Past Medical History / Comment(s): basal cell skin cancer, rash on face, History of Any Multi-Drug Resistant Organisms: None Reported Past Surgical History: AICD, Appendectomy, Bladder Surgery, Bowel Resection, Cholecystectomy, Heart Catheterization, Hysterectomy, Tonsillectomy, Tubal Liga tion Additional Past Surgical History / Comment(s): venogram/fluoroscopy, neema cataracts, Past Anesthesia/Blood Transfusion Reactions: No Reported Reaction Type of Cardiac Device: AICD Device Placement Date:: 2007 Past Psychological History: No Psychological Hx Reported Smoking Status: Never smoker Past Alcohol Use History: None Reported Past Drug Use History: None Reported - Past Family History Father Family Medical History: Cancer Mother Family Medical History: Cancer Sister(s) Family Medical History: Cancer, Deep Vein Thrombosis (DVT) Brother(s) History Unknown: Yes Family Medical History: Cancer Additional Family Medical History / Comment(s): skin cancer General Exam Limitations: no limitations Course Vital Signs 04/23/22 04/24/22 22:56 01:14 Temperature 98.4 F Pulse Rate 79 80 Respiratory 18 18 Rate Blood Pressure 133/70 98/69 O2 Sat by Pulse 99 96 Oximetry Medical Decision Making - Lab Data Result diagrams: 04/24/22 00:43 04/24/22 00:43 Lab Results 04/24/22 04/24/22 04/24/22 Range/Units 00:43 00:43 00:43 WBC 7.7 (3.8-10.6) k/uL RBC 4.83 (3.80-5.40) m/uL Hgb 15.1 (11.4-16.0) gm/dL Hct 45.8 (34.0-46.0) % MCV 94.7 (80.0-100.0) fL MCH 31.3 (25.0-35.0) pg MCHC 33.0 (31.0-37.0) g/dL RDW 13.0 (11.5-15.5) % Plt Count 149 L (150-450) k/uL MPV 10.1 Neutrophils % 80 % Lymphocytes % 13 % Monocytes % 5 % Eosinophils % 1 % Basophils % 0 % Neutrophils # 6.2 (1.3-7.7) k/uL Lymphocytes # 1.0 (1.0-4.8) k/uL Monocytes # 0.4 (0-1.0) k/uL Eosinophils # 0.1 (0-0.7) k/uL Basophils # 0.0 (0-0.2) k/uL Sodium 141 (137-145) mmol/L Potassium 4.5 (3.5-5.1) mmol/L Chloride 109 H (98-107) mmol/L Carbon Dioxide 22 (22-30) mmol/L Anion Gap 10 mmol/L BUN 47 H (7-17) mg/dL Creatinine 1.45 H (0.52-1.04) mg/dL Est GFR (CKD-EPI)AfAm 37 (>60 ml/min/1.73 sqM) Est GFR (CKD-EPI)NonAf 32 (>60 ml/min/1.73 sqM) Glucose 125 H (74-99) mg/dL Calcium 8.6 (8.4-10.2) mg/dL Total Bilirubin 1.1 (0.2-1.3) mg/dL AST 41 H (14-36) U/L ALT 29 (4-34) U/L Alkaline Phosphatase 59 (38-126) U/L Troponin I (0.000-0.034) ng/mL NT-Pro-B Natriuret Pep 65193 pg/mL Total Protein 6.3 (6.3-8.2) g/dL Albumin 3.8 (3.5-5.0) g/dL 04/24/22 Range/Units 00:43 WBC (3.8-10.6) k/uL RBC (3.80-5.40) m/uL Hgb (11.4-16.0) gm/dL Hct (34.0-46.0) % MCV (80.0-100.0) fL MCH (25.0-35.0) pg MCHC (31.0-37.0) g/dL RDW (11.5-15.5) % Plt Count (150-450) k/uL MPV Neutrophils % % Lymphocytes % % Monocytes % % Eosinophils % % Basophils % % Neutrophils # (1.3-7.7) k/uL Lymphocytes # (1.0-4.8) k/uL Monocytes # (0-1.0) k/uL Eosinophils # (0-0.7) k/uL Basophils # (0-0.2) k/uL Sodium (137-145) mmol/L Potassium (3.5-5.1) mmol/L Chloride (98-107) mmol/L Carbon Dioxide (22-30) mmol/L Anion Gap mmol/L BUN (7-17) mg/dL Creatinine (0.52-1.04) mg/dL Est GFR (CKD-EPI)AfAm (>60 ml/min/1.73 sqM) Est GFR (CKD-EPI)NonAf (>60 ml/min/1.73 sqM) Glucose (74-99) mg/dL Calcium (8.4-10.2) mg/dL Total Bilirubin (0.2-1.3) mg/dL AST (14-36) U/L ALT (4-34) U/L Alkaline Phosphatase (38-126) U/L Troponin I 0.017 (0.000-0.034) ng/mL NT-Pro-B Natriuret Pep pg/mL Total Protein (6.3-8.2) g/dL Albumin (3.5-5.0) g/dL Disposition Clinical Impression: Heart failure Disposition: ADMITTED IP TO THIS HOSP Condition: Fair Referrals: Alberto Solomon MD [Primary Care Provider] - 1-2 days Decision Time: 02:17
--- NOTE | 2022-04-24 00:55 | XR ---
EXAMINATION TYPE: XR chest 1V portable DATE OF EXAM: 04/24/2022 COMPARISON: 04/19/2022 HISTORY: Short of breath TECHNIQUE: Single view FINDINGS: Heart is enlarged. There is pulmonary vascular congestion. There is blunting of the costoph renic angles and much more on the right side. There is left axillary pacemaker. IMPRESSION: Congestive heart failure with pleural effusions. Right lower lobe pneumonia also possible . Pleural fluid increased compared to old exam.
[2022-04-24 01:28] LABS: Albumin 3.8 g/dL (3.5-5.0); Calcium 8.6 mg/dL (8.4-10.2); Potassium 4.5 mmol/L (3.5-5.1); Total Bilirubin 1.1 mg/dL (0.2-1.3); Total Protein 6.3 g/dL (6.3-8.2)
[2022-04-24 01:32] LABS: Basophils % (A) 0 %; Eosinophils # (A) 0.1 k/uL (0-0.7); Eosinophils % (A) 1 %; HCT 45.8 % (34.0-46.0); HGB 15.1 gm/dL (11.4-16.0); Lymphocytes % (A) 13 %; MCH 31.3 pg (25.0-35.0); MCV 94.7 fL (80.0-100.0); Mean Platelet Volume 10.1; Monocytes # (A) 0.4 k/uL (0-1.0); Monocytes % (A) 5 %; Neutrophils # (A) 6.2 k/uL (1.3-7.7); Neutrophils % (A) 80 %; Platelet Count 149 k/uL (150-450); RBC 4.83 m/uL (3.80-5.40); WBC 7.7 k/uL (3.8-10.6)
[2022-04-24 02:23] LABS: INR 1.5 (<1.2); Prothrombin Time 15.2 sec (9.0-12.0)
[2022-04-24] MEDS: FUROSEMIDE 10 MG/ML 4 ML VIAL IV SCH ×2 (02:44→16:52)
[2022-04-24 09:00] VITALS: BMI 22.7
--- NOTE | 2022-04-24 09:22 | P.CRDCN ---
History of Present Illness Consult date: 04/24/22 Consult reason: congestive heart failure, shortness of breath Chief complaint: shortness of breath History of present illness: History of present illness: Patient is a pleasant 86-year-old female with significant past medical history of COPD, atrial fibrillation, congestive heart failure, hypertension, diabetes, severe mitral valve regurgitation, cardiomyopathy, biventricular AICD who presented to the ED with worsening shortness of breath. She reports that over the past 3-4 weeks she has been having gradual increase in shortness of breath. However, last night when she laid down she was having significant shortness of breath and this was not relieved with sitting up that she presented to the emergency department. She was given IV Lasix and reports that she is feeling better this morning. She denies any chest pain, dizziness, palpitations, syncope. Troponin negative 1, BNP elevated at 10,600, creatinine 1.45. Echo from 06/23/21 with an EF of 2025 percent and moderate to severe mitral regurgitation. Chest x-ray reveals CHF with pleural effusions right greater than left. EKG shows ventricular pacemaker set at 80 bpm. She was recently seen by Dr. Thakkar in the office and pacer rate was increased to 80 about 3-4 weeks ago, she reports feeling better after this change. She also reports that she was unable to follow up with bladder changer as an outpatient. REVIEW OF SYSTEMS: No fever or chills. No cough or expectoration. Reports shortness of breath. No diaphoresis. Patient denies headache, dizziness, blurred vision, double vision. Patient denies any stomach discomfort. No nausea, vomiting. No hematochezia. No hematemesis. Denies any black stools or blood in his stools. Denies dysuria or hematuria. No muscle weakness or numbness. No chest pain or pressure. PHYSICAL EXAMINATION: This is a 86 year-old male in no apparent distress at the time of my examination. HEENT: Head is atraumatic, normocephalic. Pupils are equal, round. Sclerae anicteric. Conjunctivae are clear. Mucous membranes of the mouth are moist. Neck is supple. There is no jugular venous distention. No carotid bruit is heard. CHEST EXAMINATION: Lungs no breath sounds right lower lobe, crackles heard left lower lobe. No chest wall tenderness is noted on palpation or with deep breathing. HEART EXAMINATION: Heart regular rate and rhythm. S1, S2 heard. No murmurs, gallops or rub. ABDOMEN: Soft, nontender. Bowel sounds are heard. EXTREMITIES: 2+ peripheral pulses with no evidence of peripheral edema and no c mcc tenderness noted. NEUROLOGIC EXAMINATION: Patient is awake, alert and oriented x3. IMPRESSION AND PLAN: Chronic systolic heart failure, EF 2025% Pleural effusions, right greater than left Cardiomyopathy COPD Atrial fibrillation Hypertension Severe mitral valve regurgitation Diabetes type 2 Biventricular AICD, rate set at 80 bpm PLAN: We will continue IV diuretics. No need to repeat echo at this time as it will not change agent. Will consult pulmonology for evaluation of possible throacentesis as she has benefited from this in the past. Continue home medications. Further recommendations to follow. I am dictating on behalf of Dr. Robert Thakkar's history/physical and as sessment/plan. Past Medical History Past Medical History: Atrial Fibrillation, Cancer, Heart Failure, Diabetes Mellitus, Hyperlipidemia, Osteoarthritis (OA), Skin Disorder, Vascular Disorder Additional Past Medical History / Comment(s): basal cell skin cancer, rash on face, History of Any Multi-Drug Resistant Organisms: None Reported Past Surgical History: AICD, Appendectomy, Bladder Surgery, Bowel Resection, Cholecystectomy, Heart Catheterization, Hysterectomy, Tonsillectomy, Tubal Ligation Additional Past Surgical History / Comment(s): venogram/fluoroscopy, neema cataracts, Past Anesthesia/Blood Transfusion Reactions: No Reported Reaction Type of Cardiac Device: AICD Device Placement Date:: 2007 Past Psychological History: No Psychological Hx Reported Additional Psychological History / Comment(s): Pt resides with her spouse and sometimes their adult son stays with them. She has [facility] palliative care. She has home oxygen which she wears at HS and prn during daytime. She has a glucometer, walker. Spouse drives, does housework. Smoking Status: Never smoker Past Alcohol Use History: None Reported Past Drug Use History: None Reported - Past Family History Father Family Medical History: Cancer Mother Family Medical History: Cancer Sister(s) Family Medical History: Cancer, Deep Vein Thrombosis (DVT) Brother(s) History Unknown: Yes Family Medical History: Cancer Additional Family Medical History / Comment(s): skin cancer Medications and Allergies Home Medications Medication Instructions Recorded Confirmed Type Simvastatin [Zocor] 20 mg PO HS 10/22/15 03/10/22 History Levothyroxine Sodium [Synthroid] 25 mcg PO AC-BRKFST 03/30/18 03/10/22 History Warfarin [Coumadin] 1 mg PO CALVIN@1700 03/30/18 03/10/22 History Warfarin [Coumadin] 1.5 mg PO MOTUWETHFRSA@1700 03/30/18 03/10/22 History Furosemide [Lasix] 40 mg PO DAILY 05/21/21 03/10/22 History Midodrine HCl [ProAmatine] 10 mg PO TID-W/MEALS 06/22/21 03/10/22 History Amiodarone [Cordarone] 200 mg PO DAILY 03/10/22 03/10/22 History Loperamide HCl [Imodium A-D] 1 mg PO BID 03/10/22 03/10/22 History Sacubitril/Valsartan [Entresto 24 0.5 tab PO BID 03/10/22 03/10/22 History mg-26 mg Tablet] Spironolactone [Aldactone] 12.5 mg PO DAILY 03/10/22 03/10/22 History glipiZIDE 7.5 mg PO BID 03/10/22 03/10/22 History Allergies Allergy/AdvReac Type Severity Reaction Status Date / Time quinidine Allergy Rash/Hives Verified 03/10/22 18:02 CLEAR PLASTIC TAPE Allergy Rash/Hives Uncoded 03/10/22 18:02 Physical Exam Vitals: Vital Signs Temp Pulse Pulse Resp BP BP Pulse Ox 04/24/22 03:00 97.8 F 80 14 113/72 97 04/24/22 02:33 80 16 96/62 96 04/24/22 01:14 80 18 98/69 96 04/23/22 22:56 98.4 F 79 18 133/70 99 Intake and Output 04/23/22 04/24/22 04/24/22 22:59 06:59 14:59 Output Total 300 Balance -300 Output: Urine 300 Other: Voiding Method Toilet # Bowel Movements 0 Weight 62.142 kg 62 kg 62 kg Results 04/24/22 00:43 04/24/22 00:43 Cardiac Enzymes 04/24/22 04/24/22 Range/Units 00:43 00:43 AST 41 H (14-36) U/L Troponin I 0.017 (0.000-0.034) ng/mL Coagulation 04/24/22 Range/Units 00:43 PT 15.2 H (9.0-12.0) sec APTT 28.0 (22.0-30.0) sec CBC 04/24/22 Range/Units 00:43 WBC 7.7 (3.8-10.6) k/uL RBC 4.83 (3.80-5.40) m/uL Hgb 15.1 (11.4-16.0) gm/dL Hct 45.8 (34.0-46.0) % Plt Count 149 L (150-450) k/uL Comprehensive Metabolic Panel 04/24/22 Range/Units 00:43 Sodium 141 (137-145) mmol/L Potassium 4.5 (3.5-5.1) mmol/L Chloride 109 H (98-107) mmol/L Carbon Dioxide 22 (22-30) mmol/L BUN 47 H (7-17) mg/dL Creatinine 1.45 H (0.52-1.04) mg/dL Glucose 125 H (74-99) mg/dL Calcium 8.6 (8.4-10.2) mg/dL AST 41 H (14-36) U/L ALT 29 (4-34) U/L Alkaline Phosphatase 59 (38-126) U/L Total Protein 6.3 (6.3-8.2) g/dL Albumin 3.8 (3.5-5.0) g/dL Current Medications Generic Name Dose Route Start Last Admin Trade Name Mannyq PRN Reason Stop Dose Admin Furosemide 40 mg 04/24/22 02:15 04/24/22 02:44 Furosemide 10 Mg/Ml 4 Ml Vial IV 40 mg Q12H VITO Administration Intake and Output 04/23/22 04/24/22 04/24/22 22:59 06:59 14:59 Output Total 300 Balance -300 Output: Urine 300 Other: Voiding Method Toilet # Bowel Movements 0 Weight 62.142 kg 62 kg 62 kg Patient Weight 04/25/22 06:59 Weight 62 kg 04/24/22 00:43 04/24/22 00:43
--- NOTE | 2022-04-24 13:16 | P.CNPUL ---
History of Present Illness Consult date: 04/24/22 Requesting physician: Todd Jarrett Reason for consult: pleural effusion Chief complaint: Shortness of breath History of present illness: This is an 86-year-old female familiar to our service, known history of severe LV dysfunction, previous biventricular AICD placement, history of chronic atrial fibrillation, chronic systolic congestive heart failure, history of underlying COPD, patient presented to the ER with 3-4 weeks history of increased shortness of breath that has been gradual. Patient is unable to lay flat, no fever no chills, no cough, no wheezing, patient was found to have significantly elevated BNP level, previous echocardiogram from June of 2021 showed ejection fraction of 20%, and there is moderate to severe mitral regurgitation. Patient has chronic right-sided pleural effusion, previous thoracentesis of the fluid showed that the fluid was transudate of in nature clearly consistent with CHF. At any rate patient was admitted with the impression of acute on chronic systolic congestive heart failure, and this consult was initiated. Patient is already on diuretics, responding well to diuresis, feeling better, hence I have no plans to arrange for thoracentesis at this point since the patient is responding to medical treatment Review of Systems Constitutional: Negative HEENT: Negative Cardiac: As noted in HPI Pulmonary: As noted in HPI GI: Negative Genitourinary: Negative Muscular skeletal: Negative Endocrine: Negative Hematologic: Negative Neurologic : Negative Psychiatric: Negative Skin: Negative Past Medical History Past Medical History: Atrial Fibrillation, Cancer, Heart Failure, Diabetes Mellitus, Hyperlipidemia, Osteoarthritis (OA), Skin Disorder, Vascular Disorder Additional Past Medical History / Comment(s): basal cell skin cancer, rash on face, History of Any Multi-Drug Resistant Organisms: None Reported Past Surgical History: AICD, Appendectomy, Bladder Surgery, Bowel Resection, Cholecystectomy, Heart Catheterization, Hysterectomy, Tonsillectomy, Tubal Ligation Additional Past Surgical History / Comment(s): venogram/fluoroscopy, neema cataracts, Past Anesthesia/Blood Transfusion Reactions: No Reported Reaction Type of Cardiac Device: AICD Device Placement Date:: 2007 Past Psychological History: No Psychological Hx Reported Additional Psychological History / Comment(s): Pt resides with her spouse and sometimes their adult son stays with them. She has [facility] palliative care. She has home oxygen which she wears at HS and prn during daytime. She has a glucometer, walker. Spouse drives, does housework. Smoking Status: Never smoker Past Alcohol Use History: None Reported Past Drug Use History: None Reported - Past Family History Father Family Medical History: Cancer Mother Family Medical History: Cancer Sister(s) Family Medical History: Cancer, Deep Vein Thrombosis (DVT) Brother(s) History Unknown: Yes Family Medical History: Cancer Additional Family Medical History / Comment(s): skin cancer Medications and Allergies Home Medications Medication Instructions Recorded Confirmed Type Simvastatin [Zocor] 20 mg PO HS 10/22/15 04/24/22 History Levothyroxine Sodium [Synthroid] 25 mcg PO AC-BRKFST 03/30/18 04/24/22 History Warfarin [Coumadin] 1 mg PO CALVIN@1700 03/30/18 04/24/22 History Warfarin [Coumadin] 1.5 mg PO MOTUWETHFRSA@1700 03/30/18 04/24/22 History Furosemide [Lasix] 40 mg PO DAILY 05/21/21 04/24/22 History Midodrine HCl [ProAmatine] 10 mg PO TID-W/MEALS 06/22/21 04/24/22 History Loperamide HCl [Imodium A-D] 1 mg PO BID 03/10/22 04/24/22 History Sacubitril/Valsartan [Entresto 24 0.5 tab PO BID 03/10/22 04/24/22 History mg-26 mg Tablet] Spironolactone [Aldactone] 12.5 mg PO DAILY 03/10/22 04/24/22 History glipiZIDE 7.5 mg PO BID 03/10/22 04/24/22 History Multivitamins, Thera [Multivitamin 1 tab PO DAILY 04/24/22 04/24/22 History (formulary)] Allergies Allergy/AdvReac Type Severity Reaction Status Date / Time quinidine Allergy Rash/Hives Verified 04/24/22 10:44 CLEAR PLASTIC TAPE Allergy Rash/Hives Uncoded 04/24/22 10:41 Physical Exam Vitals: Vital Signs Temp Pulse Pulse Resp BP BP Pulse Ox 04/24/22 08:00 97.4 F L 82 18 97/61 04/24/22 03:00 97.8 F 80 14 113/72 97 04/24/22 02:33 80 16 96/62 96 04/24/22 01:14 80 18 98/69 96 04/23/22 22:56 98.4 F 79 18 133/70 99 Intake and Output 04/23/22 04/24/22 04/24/22 22:59 06:59 14:59 Intake Total 358 Output Total 300 Balance -300 358 Intake: Oral 358 Output: Urine 300 Other: Voiding Method Toilet Toilet # Bowel Movements 0 Weight 62.142 kg 62 kg 62 kg Physical Exam: Revealed 86-year-old female in no distress, on 2 L nasal cannula and O2 saturation 97%, Head: Atraumatic, normocephalic HEENT:[Neck is supple.] [No neck masses.] [No thyromegaly.] Positive JVD. Chest: Symmetrical chest expansion, diminished breath sounds at the right base with dullness..] Cardiac Exam: Irregular irregular rhythm. [Normal S1 and S2, no S3 gallop, 3/6 systolic murmur throughout the precordium mostly at the left lower sternal border Abdomen: [Soft, nontender, no megaly, no rebound, no guarding, normal bowel sounds.] Extremities: [No clubbing, no edema, no cyanosis.] Neurological Exam: Alert oriented 3 focal deficit Psychiatric: Normal mood affect and normal mental status examination. Skin: No rashes [place] skeletal: No deformities and no limitation in range of motion Results - Laboratory Findings CBC and BMP: 04/24/22 00:43 04/24/22 00:43 PT/INR, D-dimer PT 15.2 sec (9.0-12.0) H 04/24/22 00:43 INR 1.5 (<1.2) H 04/24/22 00:43 Abnormal lab findings: Abnormal Labs 04/24/22 04/24/22 04/24/22 00:43 00:43 00:43 Plt Count 149 L PT 15.2 H INR 1.5 H Chloride 109 H BUN 47 H Creatinine 1.45 H Glucose 125 H AST 41 H - Diagnostic Findings Chest x-ray: image reviewed (Congestive heart failure and right-sided pleural effusion) Assessment and Plan Assessment: Impression: Chronic systolic congestive heart failure, known to have ejection fraction of 20-25% and previous history of biventricular AICD placement. Bilateral pleural effusions consistent with congestive heart failure, no need for thoracentesis, medical treatment Severe cardiomyopathy and LV dysfunction Chronic atrial fibrillation Severe mitral valve regurgitation Type 2 diabetes Questionable underlying COPD Degenerative joint disease History of basal cell carcinoma/skin. Recommendation: Agree with the present treatment plan Continue Lasix Resume home meds Strict I's and O's, and daily weights Follow-up chest x-ray in the next 2 days. Again no need for thoracentesis at this point, patient should improve with diuretics. Time with Patient: Greater than 30
[2022-04-24] MEDS ORDERED: DEXTROSE 50% SYRINGE 50 ML IVP PRN ×2 (19:16)
[2022-04-24] MEDS ORDERED: WARFARIN 2 MG TAB PO ONE (20:00)
--- NOTE | 2022-04-24 20:41 | P.HPIM ---
History of Present Illness H&P Date: 04/24/22 Chief Complaint: Shortness of breath 86-year-old female with significant past medical history of COPD, atrial fibrillation, congestive heart failure, hypertension, diabetes, severe mitral valve regurgitation, cardiomyopathy, biventricular AICD who presented to the ED with worsening shortness of breath. She reports that over the past 3-4 weeks she has been having gradual increase in shortness of breath. However, last night when she laid down she was having significant shortness of breath and this was not relieved with sitting up that she presented to the emergency department. She was given IV Lasix and reports that she is feeling better this morning. She denies any chest pain, dizziness, palpitations, syncope. Troponin negative 1, BNP elevated at 10,600, creatinine 1.45. Echo from 06/23/21 with an EF of 2025 percent and moderate to severe mitral regurgitation. Chest x-ray reveals CHF with pleural effusions right greater than left. EKG shows ventricular pacemaker set at 80 bpm. She was recently seen by Dr. Thakkar in the office and pacer rate was increased to 80 about 3-4 weeks ago, she reports feeling better after this change. Review of Systems REVIEW OF SYSTEMS: CONSTITUTIONAL: No fever, no malaise, no fatigue. HEENT: No recent visual problems or hearing problems. Denied any sore throat. CARDIOVASCULAR: No chest pain, orthopnea, PND, no palpitations, no syncope. PULMONARY: No shortness of breath, no cough, no hemoptysis. GASTROINTESTINAL: No diarrhea, no nausea, no vomiting, no abdominal pain. NEUROLOGICAL: No headaches, no weakness, no numbness. HEMATOLOGICAL: Denies any bleeding or petechiae. GENITOURINARY: Denies any burning micturition, frequency, or urgency. MUSCULOSKELETAL/RHEUMATOLOGICAL: Denies any joint pain, swelling, or any muscle pain. ENDOCRINE: Denies any polyuria or polydipsia. The rest of the 14-point review of systems is negative. Past Medical History Past Medical History: Atrial Fibrillation, Cancer, Heart Failure, Diabetes Mellitus, Hyperlipidemia, Osteoarthritis (OA), Skin Disorder, Vascular Disorder Additional Past Medical History / Comment(s): basal cell skin cancer, rash on face, History of Any Multi-Drug Resistant Organisms: None Reported Past Surgical History: AICD, Appendectomy, Bladder Surgery, Bowel Resection, Cholecystectomy, Heart Catheterization, Hysterectomy, Tonsillectomy, Tubal Ligation Additional Past Surgical History / Comment(s): venogram/fluoroscopy, neema cataracts, Past Anesthesia/Blood Transfusion Reactions: No Reported Reaction Type of Cardiac Device: AICD Device Placement Date:: 2007 Past Psychological History: No Psychological Hx Reported Additional Psychological History / Comment(s): Pt resides with her spouse and sometimes their adult son stays with them. She has [facility] palliative care. She has home oxygen which she wears at HS and prn during daytime. She has a glucometer, walker. Spouse drives, does housework. Smoking Status: Never smoker Past Alcohol Use History: None Reported Past Drug Use History: None Reported - Past Family History Father Family Medical History: Cancer Mother Family Medical History: Cancer Sister(s) Family Medical History: Cancer, Deep Vein Thrombosis (DVT) Brother(s) History Unknown: Yes Family Medical History: Cancer Additional Family Medical History / Comment(s): skin cancer Medications and Allergies Home Medications Medication Instructions Recorded Confirmed Type Simvastatin [Zocor] 20 mg PO HS 10/22/15 04/24/22 History Levothyroxine Sodium [Synthroid] 25 mcg PO AC-BRKFST 03/30/18 04/24/22 History Warfarin [Coumadin] 1 mg PO CALVIN@1700 03/30/18 04/24/22 History Warfarin [Coumadin] 1.5 mg PO MOTUWETHFRSA@1700 03/30/18 04/24/22 History Furosemide [Lasix] 40 mg PO DAILY 05/21/21 04/24/22 History Midodrine HCl [ProAmatine] 10 mg PO TID-W/MEALS 06/22/21 04/24/22 History Loperamide HCl [Imodium A-D] 1 mg PO BID 03/10/22 04/24/22 History Sacubitril/Valsartan [Entresto 24 0.5 tab PO BID 03/10/22 04/24/22 History mg-26 mg Tablet] Spironolactone [Aldactone] 12.5 mg PO DAILY 03/10/22 04/24/22 History glipiZIDE 7.5 mg PO BID 03/10/22 04/24/22 History Multivitamins, Thera [Multivitamin 1 tab PO DAILY 04/24/22 04/24/22 History (formulary)] Allergies Allergy/AdvReac Type Severity Reaction Status Date / Time quinidine Allergy Rash/Hives Verified 04/24/22 10:44 CLEAR PLASTIC TAPE Allergy Rash/Hives Uncoded 04/24/22 10:41 Physical Exam Vitals: Vital Signs Temp Pulse Pulse Resp BP BP Pulse Ox 04/24/22 03:00 97.8 F 80 14 113/72 97 04/24/22 02:33 80 16 96/62 96 04/24/22 01:14 80 18 98/69 96 04/23/22 22:56 98.4 F 79 18 133/70 99 Intake and Output 04/23/22 04/24/22 04/24/22 22:59 06:59 14:59 Output Total 300 Balance -300 Output: Urine 300 Other: Voiding Method Toilet # Bowel Movements 0 Weight 62.142 kg 62 kg PHYSICAL EXAMINATION: GENERAL: The patient is alert and oriented x3, not in any acute distress. Well developed, well nourished. HEENT: Pupils are round and equally reacting to light. EOMI. No scleral icterus. No conjunctival pallor. Normocephalic, atraumatic. No pharyngeal erythema. No thyromegaly. CARDIOVASCULAR: S1 and S2 present. No murmurs, rubs, or gallops. PULMONARY: Chest is clear to auscultation, no wheezing or crackles. ABDOMEN: Soft, nontender, nondistended, normoactive bowel sounds. No palpable organomegaly. MUSCULOSKELETAL: No joint swelling or deformity. EXTREMITIES: No cyanosis, clubbing, or pedal edema. NEUROLOGICAL: Gross neurological examination did not reveal any focal deficits. SKIN: No rashes. Results CBC & Chem 7: 04/24/22 00:43 04/24/22 00:43 Labs: Abnormal Lab Results - Last 24 Hours (Table) 04/24/22 04/24/22 04/24/22 Range/Units 00:43 00:43 00:43 Plt Count 149 L (150-450) k/uL PT 15.2 H (9.0-12.0) sec INR 1.5 H (<1.2) Chloride 109 H (98-107) mmol/L BUN 47 H (7-17) mg/dL Creatinine 1.45 H (0.52-1.04) mg/dL Glucose 125 H (74-99) mg/dL AST 41 H (14-36) U/L Thrombosis Risk Factor Assmnt - Choose All That Apply Any of the Below Risk Factors Present?: Yes Each Factor Represents 1 point: Heart failure (<1month) Other Risk Factors: Yes Each Risk Factor Represents 3 Points: Age 75 years or older Other congenital or acquired thrombophilia - If yes, enter type in comment: No Thrombosis Risk Factor Assessment Total Risk Factor Score: 4 Thrombosis Risk Factor Assessment Level: Moderate Risk Assessment and Plan Assessment: 1. Acute exacerbation chronic systolic CHF - Last echocardiogram reveals an EF of 20-25% - Patient has been placed on IV diuretic therapy in form of Lasix 40 mg IV every 12 hours - Patient has been evaluated by cardiology and repeat echocardiogram was not recommended - We will plan to monitor strict VIJAY's, daily weights, low salt and fluid restricted diet 2. Bilateral pleural effusion; likely is related to fluid overload; patient remains on IV diuretic therapy and pulmonary service has been consulted for p ossible thoracentesis - We will continue with oxygen at 2 L per nasal cannula 3. Hypertension; Entresto 26-24 mg by mouth twice a day 4. Diabetes mellitus type 2; patient takes glipizide at home which has been placed on hold; we will monitor Accu-Cheks before meals and at bedtime with insulin sliding scale 5. Severe cardiomyopathy; patient is status post biventricular AICD with a rate set at 80 bpm; ejection fraction at 20-25% 6. COPD; not in exacerbation; continue with home inhaler therapy 7. Atrial fibrillation; patient is anticoagulated with Coumadin; monitor PT/INR closely 8. Hypothyroidism; levothyroxin 25 MCG daily
[2022-04-24 21:04] LABS: Glucose,Whole Blood 154 mg/dL (70-110)
[2022-04-24] MEDS: ATORVASTATIN 10 MG TAB PO SCH (21:23)
[2022-04-24] MEDS: SACUBITRIL/VALSARTAN 24 MG-26 MG TABLET PO SCH (21:23)
[2022-04-24] MEDS: INSULIN ASPART (NovoLOG) 100 UNIT/ML VIAL SQ SCH (21:24)
[2022-04-25] MEDS: FUROSEMIDE 10 MG/ML 4 ML VIAL IV SCH ×2 (02:17→16:22)
[2022-04-25 06:10] LABS: Glucose,Whole Blood 129 mg/dL (70-110)
[2022-04-25] MEDS: INSULIN ASPART (NovoLOG) 100 UNIT/ML VIAL SQ SCH ×4 (06:33→20:40)
[2022-04-25] MEDS: MIDODRINE 5 MG TAB PO SCH ×3 (06:35→16:22)
[2022-04-25] MEDS: LEVOTHYROXINE 25 MCG TAB PO SCH (06:36)
[2022-04-25 08:15] LABS: INR 1.7 (<1.2); Prothrombin Time 17.3 sec (9.0-12.0)
[2022-04-25 08:26] LABS: Calcium 8.4 mg/dL (8.4-10.2); Potassium 3.9 mmol/L (3.5-5.1)
[2022-04-25] MEDS: MULTIVITAMINS, THERA 1 EACH TAB PO SCH (09:35)
[2022-04-25] MEDS: SPIRONOLACTONE 25 MG TAB PO SCH (09:35)
[2022-04-25] MEDS: SACUBITRIL/VALSARTAN 24 MG-26 MG TABLET PO SCH ×2 (09:35→21:50)
[2022-04-25 11:34] LABS: Glucose,Whole Blood 108 mg/dL (70-110)
--- NOTE | 2022-04-25 11:40 | P.PN ---
Subjective History of present illness: Patient is a pleasant 86-year-old female with significant past medical history of COPD, atrial fibrillation, congestive heart failure, hypertension, diabetes, severe mitral valve regurgitation, cardiomyopathy, biventricular AICD who presented to the ED with worsening shortness of breath. She reports that over the past 3-4 weeks she has been having gradual increase in shortness of breath. However, last night when she laid down she was having significant shortness of breath and this was not relieved with sitting up that she presented to the emergency department. She was given IV Lasix and reports that she is feeling better this morning. She denies any chest pain, dizziness, palpitations, syncope. Troponin negative 1, BNP elevated at 10,600, creatinine 1.45. Echo from 06/23/21 with an EF of 2025 percent and moderate to severe mitral regurgitation. Chest x-ray reveals CHF with pleural effusions right greater than left. EKG shows ventricular pacemaker set at 80 bpm. She was recently seen by Dr. Thakkar in the office and pacer rate was increased to 80 about 3-4 weeks ago, she reports feeling better after this change. She also reports that she was unable to follow up with pre sales technical consultant as an outpatient. 04/25 Patient seen and examined. Patient admits to mild improvement in shortness of breath however still significantly short of breath compared to a few months ago. Receiving IV Lasix with good urine output with mild increasing creatinine up to 1.5. She has had diuresis in the past with acute kidney injury. Pulmonology was consult that with no current recommendations to perform thoracentesis. INR 1.7 PHYSICAL EXAMINATION: This is a 86 year-old male in no apparent distress at the time of my examination. HEENT: Head is atraumatic, normocephalic. Pupils are equal, round. Sclerae ani cteric. Conjunctivae are clear. Mucous membranes of the mouth are moist. Neck is supple. There is no jugular venous distention. No carotid bruit is heard. CHEST EXAMINATION: Lungs no breath sounds right lower lobe, crackles heard left lower lobe. No chest wall tenderness is noted on palpation or with deep breathing. HEART EXAMINATION: Heart regular rate and rhythm. S1, S2 heard. No murmurs, gall ops or rub. ABDOMEN: Soft, nontender. Bowel sounds are heard. EXTREMITIES: 2+ peripheral pulses with no evidence of peripheral edema and no calf tenderness noted. NEUROLOGIC EXAMINATION: Patient is awake, alert and oriented x3. IMPRESSION AND PLAN: Chronic systolic heart failure, EF 2025% Pleural effusions, right greater than left Cardiomyopathy COPD Atrial fibrillation Hypertension Severe mitral valve regurgitation Diabetes type 2 Biventricular AICD, rate set at 80 bpm PLAN: Continue with current diuretics. Patient slowly improving. She has had prior admissions with kidney injury with diuresis. We will await repeat x-ray and patient did significantly better previously with thoracentesis. If thoracentesis is being contemplated we will hold Coumadin and start heparin drip. Has not done well with only diuretics in the past. Further recommendations to follow. Objective - Vital Signs Vital signs: Vital Signs Temp 97.6 F 04/25/22 09:26 Pulse 80 04/25/22 09:26 Resp 18 04/25/22 09:26 BP 101/66 04/25/22 09:26 Pulse Ox 95 04/25/22 09:26 FiO2 Intake & Output 04/24/22 04/25/22 04/25/22 18:59 06:59 18:59 Intake Total 598 363 Output Total 220 450 Balance 378 -87 Weight 62 kg 129 kg Intake: IV 5 Invasive Line 1 5 Oral 598 358 Output: Urine 220 450 Other: Voiding Method Toilet Toilet Toilet # Voids 1 1 - Labs CBC & Chem 7: 04/24/22 00:43 04/25/22 06:56 Labs: Abnormal Lab Results - Last 24 Hours (Table) 04/24/22 04/24/22 04/25/22 Range/Units 00:43 21:03 06:09 PT (9.0-12.0) sec INR (<1.2) BUN (7-17) mg/dL Creatinine (0.52-1.04) mg/dL Glucose (74-99) mg/dL POC Glucose (mg/dL) 154 H 129 H (70-110) mg/dL Hemoglobin A1c 6.9 H (0.0-6.0) % 04/25/22 04/25/22 Range/Units 06:56 06:56 PT 17.3 H (9.0-12.0) sec INR 1.7 H (<1.2) BUN 41 H (7-17) mg/dL Creatinine 1.50 H (0.52-1.04) mg/dL Glucose 122 H (74-99) mg/dL POC Glucose (mg/dL) (70-110) mg/dL Hemoglobin A1c (0.0-6.0) %
--- NOTE | 2022-04-25 14:01 | P.PN ---
Subjective Progress Note Date: 04/25/22 Principal diagnosis: Chronic systolic congestive heart failure This is an 86-year-old female familiar to our service, known history of severe LV dysfunction, previous biventricular AICD placement, history of chronic atrial fibrillation, chronic systolic congestive heart failure, history of underlying COPD, patient presented to the ER with 3-4 weeks history of increased shortness of breath that has been gradual. Patient is unable to lay flat, no fever no chills, no cough, no wheezing, patient was found to have significantly elevated BNP level, previous echocardiogram from June of 2021 showed ejection fraction of 20%, and there is moderate to severe mitral regurgitation. Patient has chronic right-sided pleural effusion, previous thoracentesis of the fluid showed that th e fluid was transudate of in nature clearly consistent with CHF. At any rate patient was admitted with the impression of acute on chronic systolic congestive heart failure, and this consult was initiated. Patient is already on diuretics, responding well to diuresis, feeling better, hence I have no plans to arrange for thoracentesis at this point since the patient is responding to medical treatment Reevaluated today on 04/25/2022, patient is feeling better, breathing definitely easier, O2 sat she is 96% on 2 L. Patient is obviously improving with diuretics, renal functioning is on the rise, creatinine is up to 1.50, was 1.45 yesterday, nonetheless the patient is doing better, and I plan to repeat her chest x-ray. Discussed with Dr. Thakkar, if her chest x-ray is not showing significant improvement we can definitely consider thoracentesis, clinically at this point I don't see value of thoracentesis unless patient has a worsening pulmonary status, or no response noted on chest x-ray findings in the next 24 hours Objective - Vital Signs Vital signs: Vital Signs Temp 97.3 F L 04/25/22 11:40 Pulse 77 04/25/22 11:40 Resp 16 04/25/22 11:40 BP 100/65 04/25/22 11:40 Pulse Ox 96 04/25/22 11:40 FiO2 Intake & Output 04/24/22 04/25/22 04/25/22 18:59 06:59 18:59 Intake Total 598 481 Output Total 220 450 Balance 378 31 Weight 62 kg 129 kg Intake: IV 5 Invasive Line 1 5 Oral 598 476 Output: Urine 220 450 Other: Voiding Method Toilet Toilet Toilet # Voids 1 1 - Exam Physical Exam: Revealed 86-year-old female in no distress, O2 saturation is 96% on 2 L nasal cannula Head: Atraumatic, normocephalic HEENT:[Neck is supple.] [No neck masses.] [No thyromegaly.] Positive JVD. Chest: Symmetrical chest expansion, diminished breath sounds at the right base with dullness..] Cardiac Exam: Irregular irregular rhythm. [Normal S1 and S2, no S3 gallop, 3/6 systolic murmur throughout the precordium mostly at the left lower sternal border Abdomen: [Soft, nontender, no megaly, no rebound, no guarding, normal bowel sounds.] Extremities: [No clubbing, no edema, no cyanosis.] Neurological Exam: Alert oriented 3 focal deficit Psychiatric: Normal mood affect and normal mental status examination. Skin: No rashes Musko skeletal: No deformities and no limitation in range of motion - Labs CBC & Chem 7: 04/24/22 00:43 04/25/22 06:56 Labs: Abnormal Lab Results - Last 24 Hours (Table) 04/24/22 04/24/22 04/25/22 Range/Units 00:43 21:03 06:09 PT (9.0-12.0) sec INR (<1.2) BUN (7-17) mg/dL Creatinine (0.52-1.04) mg/dL Glucose (74-99) mg/dL POC Glucose (mg/dL) 154 H 129 H (70-110) mg/dL Hemoglobin A1c 6.9 H (0.0-6.0) % 04/25/22 04/25/22 Range/Units 06:56 06:56 PT 17.3 H (9.0-12.0) sec INR 1.7 H (<1.2) BUN 41 H (7-17) mg/dL Creatinine 1.50 H (0.52-1.04) mg/dL Glucose 122 H (74-99) mg/dL POC Glucose (mg/dL) (70-110) mg/dL Hemoglobin A1c (0.0-6.0) % Assessment and Plan Assessment: Impression: Chronic systolic congestive heart failure, known to have ejection fraction of 20-25% and previous history of biventricular AICD placement. Bilateral pleural effusions consistent with congestive heart failure, no need for thoracentesis, medical treatment Severe cardiomyopathy and LV dysfunction Chronic atrial fibrillation Severe mitral valve regurgitation Type 2 diabetes Questionable underlying COPD Degenerative joint disease History of basal cell carcinoma/skin. Recommendation: Recheck chest x-ray in a.m. Consider thoracentesis if no improvement Continue diuretics Strict I's and O's, and daily weights We'll continue to follow Discussed patient condition with the cigarette making examiner / Dr. Thakkar over the phone. Time with Patient: Less than 30
[2022-04-25 16:29] LABS: Glucose,Whole Blood 154 mg/dL (70-110)
[2022-04-25] MEDS ORDERED: WARFARIN 1 MG TAB PO SCH (17:00)
[2022-04-25] MEDS ORDERED: WARFARIN 1.5 MG TAB PO ONE (18:00)
--- NOTE | 2022-04-25 19:15 | P.PN ---
Subjective Progress Note Date: 04/25/22 86-year-old female with significant past medical history of COPD, atrial fibrillation, congestive heart failure, hypertension, diabetes, severe mitral valve regurgitation, cardiomyopathy, biventricular AICD who presented to the ED with worsening shortness of breath. She reports that over the past 3-4 weeks she has been having gradual increase in shortness of breath. However, last night when she laid down she was having significant shortness of breath and this was not relieved with sitting up that she presented to the emergency department. She was given IV Lasix and reports that she is feeling better this morning. She denies any chest pain, dizziness, palpitations, syncope. Troponin negative 1, BNP elevated at 10,600, creatinine 1.45. Echo from 06/23/21 with an EF of 5 percent and moderate to severe mitral regurgitation. Chest x-ray reveals CHF with pleural effusions right greater than left. EKG shows ventricular pacemaker set at 80 bpm. She was recently seen by Dr. Thakkar in the office and pacer rate was increased to 80 about 3-4 weeks ago, she reports feeling better after this change. 04/25/2022 patient is seen and evaluated sitting up in a chair at bedside; reports feeling better, breathing definitely easier, O2 sat she is 96% on 2 L. Patient is obviously improving with diuretics, renal functioning is on the rise, creatinine is up to 1.50, was 1.45 yesterday; patient has been evaluated by pulmonary service and planning to repeat her chest x-ray; if her chest x-ray is not showing significant improvement we can definitely consider thoracentesis, clinically at this point I don't see value of thoracentesis unless patient has a worsening pulmonary status, or no response noted on chest x-ray findings in the next 24 hours Patient is requesting a consultation with palliative care and hospice care services Objective - Vital Signs Vital signs: Vital Signs Temp 98.0 F 04/25/22 16:27 Pulse 80 04/25/22 16:27 Resp 16 04/25/22 16:27 BP 116/72 04/25/22 16:27 Pulse Ox 97 04/25/22 16:27 FiO2 Intake & Output 04/24/22 04/25/22 04/25/22 18:59 06:59 18:59 Intake Total 598 481 Output Total 220 850 Balance 378 -369 Weight 62 kg 129 kg Intake: IV 5 Invasive Line 1 5 Oral 598 476 Output: Urine 220 850 Other: Voiding Method Toilet Toilet Toilet # Voids 1 1 - Exam Head: Atraumatic, normocephalic HEENT:[Neck is supple.] [No neck masses.] [No thyromegaly.] Positive JVD. Chest: Symmetrical chest expansion, diminished breath sounds at the right base with dullness..] Cardiac Exam: Irregular irregular rhythm. [Normal S1 and S2, no S3 gallop, 3/6 systolic murmur throughout the precordium mostly at the left lower sternal border Abdomen: [Soft, nontender, no megaly, no rebound, no guarding, normal bowel sounds.] Extremities: [No clubbing, no edema, no cyanosis.] Neurological Exam: Alert oriented 3 focal deficit Psychiatric: Normal mood affect and normal mental status examination. Skin: No rashes Musko skeletal: No deformities and no limitation in range of motion - Labs CBC & Chem 7: 04/24/22 00:43 04/25/22 06:56 Labs: Abnormal Lab Results - Last 24 Hours (Table) 04/24/22 04/24/22 04/25/22 Range/Units 00:43 21:03 06:09 PT (9.0-12.0) sec INR (<1.2) BUN (7-17) mg/dL Creatinine (0.52-1.04) mg/dL Glucose (74-99) mg/dL POC Glucose (mg/dL) 154 H 129 H (70-110) mg/dL Hemoglobin A1c 6.9 H (0.0-6.0) % 04/25/22 04/25/22 04/25/22 Range/Units 06:56 06:56 16:28 PT 17.3 H (9.0-12.0) sec INR 1.7 H (<1.2) BUN 41 H (7-17) mg/dL Creatinine 1.50 H (0.52-1.04) mg/dL Glucose 122 H (74-99) mg/dL POC Glucose (mg/dL) 154 H (70-110) mg/dL Hemoglobin A1c (0.0-6.0) % Assessment and Plan Assessment: 1. Acute exacerbation chronic systolic CHF - Last echocardiogram reveals an EF of 20-25% - Patient has been placed on IV diuretic therapy in form of Lasix 40 mg IV every 12 hours - Patient has been evaluated by cardiology and repeat echocardiogram was not recommended - We will plan to monitor strict VIJAY's, daily weights, low salt and fluid restricted diet 2. Bilateral pleural effusion; likely is related to fluid overload; patient remains on IV diuretic therapy and pulmonary service has been consulted for possible thoracentesis - We will continue with oxygen at 2 L per nasal cannula 3. Hypertension; Entresto 26-24 mg by mouth twice a day 4. Diabetes mellitus type 2; patient takes glipizide at home which has been placed on hold; we will monitor Accu-Cheks before meals and at bedtime with insulin sliding scale 5. Severe cardiomyopathy; patient is status post biventricular AICD with a rate set at 80 bpm; ejection fraction at 20-25% 6. COPD; not in exacerbation; continue with home inhaler therapy 7. Atrial fibrillation; patient is anticoagulated with Coumadin; monitor PT/INR closely 8. Hypothyroidism; levothyroxin 25 MCG daily
[2022-04-25 19:43] LABS: Glucose,Whole Blood 163 mg/dL (70-110)
[2022-04-25] MEDS: ATORVASTATIN 10 MG TAB PO SCH (20:40)
[2022-04-26] MEDS: FUROSEMIDE 10 MG/ML 4 ML VIAL IV SCH ×2 (03:42→13:28)
[2022-04-26] MEDS: LEVOTHYROXINE 25 MCG TAB PO SCH (05:50)
[2022-04-26 06:29] LABS: Glucose,Whole Blood 127 mg/dL (70-110)
[2022-04-26] MEDS: INSULIN ASPART (NovoLOG) 100 UNIT/ML VIAL SQ SCH ×4 (06:37→20:43)
[2022-04-26] MEDS: MIDODRINE 5 MG TAB PO SCH ×3 (06:38→17:52)
--- NOTE | 2022-04-26 08:10 | XR ---
EXAMINATION TYPE: XR chest 1V portable DATE OF EXAM: 04/26/2022 Comparison: 04/24/2022 Clinical History: 86-year-old female CHF Findings: Left anterior chest wall ICD generator with right ventricular and coronary sinus leads. Heart mildly enlarged. Mild hyperinflation. Ongoing moderate right pleural effusion with underlying opacity. Impression: Ongoing moderate right pleural effusion with adjacent atelectasis and/or consolidation. Similar to mi nimally improved from prior.
[2022-04-26 09:47] LABS: INR 1.8 (<1.2); Prothrombin Time 17.8 sec (9.0-12.0)
[2022-04-26 10:26] LABS: Calcium 8.9 mg/dL (8.4-10.2)
[2022-04-26 10:31] LABS: Potassium 4.1 mmol/L (3.5-5.1)
[2022-04-26] MEDS: SACUBITRIL/VALSARTAN 24 MG-26 MG TABLET PO SCH ×2 (10:48→20:43)
[2022-04-26] MEDS: MULTIVITAMINS, THERA 1 EACH TAB PO SCH (10:48)
[2022-04-26] MEDS: SPIRONOLACTONE 25 MG TAB PO SCH (10:48)
--- NOTE | 2022-04-26 11:51 | P.PN ---
Subjective Progress Note Date: 04/26/22 HISTORY OF PRESENT ILLNESS: Patient is a pleasant 86-year-old female with significant past medical history of COPD, atrial fibrillation, congestive heart failure, hypertension, diabetes, severe mitral valve regurgitation, cardiomyopathy, biventricular AICD who presented to the ED with worsening shortness of breath. She reports that over the past 3-4 weeks she has been having gradual increase in shortness of breath. However, last night when she laid down she was having significant shortness of breath and this was not relieved with sitting up that she presented to the emergency department. She was given IV Lasix and reports that she is feeling better this morning. She denies any chest pain, dizziness, palpitations, syncope. Troponin negative 1, BNP elevated at 10,600, creatinine 1.45. Echo from 06/23/21 with an EF of 5 percent and moderate to severe mitral regu rgitation. Chest x-ray reveals CHF with pleural effusions right greater than left. EKG shows ventricular pacemaker set at 80 bpm. She was recently seen by Dr. Thakkar in the office and pacer rate was increased to 80 about 3-4 weeks ago, she reports feeling better after this change. She also reports that she was unable to follow up with hot dog vendor as an outpatient. 04/25 Patient seen and examined. Patient admits to mild improvement in shortness of breath however still significantly short of breath compared to a few months ago. Receiving IV Lasix with good urine output with mild increasing creatinine up to 1.5. She has had diuresis in the past with acute kidney injury. Pulmonology was consult that with no current recommendations to perform thoracentesis. INR 1.7 Addendum entered and electronically signed by Robert Thakkar DO 04/25/22 13:34: Discussed case with pulmonology. Effusion has been recurrent mainly on the right and transudative likely from heart failure. Multiple hospitalizations in the past with inability to significantly improve effusion and respiratory status with diuretics with previous kidney injury in the past. Therefore recommended thoracentesis. Financial Compliance Manager discussed possible hospice for end stage heart failure however feel thoracentesis would be low risk palliative measure and she did significantly better with this in the past for a number of months. Monitor Cr, chest Xray and progress. 04/26/2022 Patient examined this morning at the bedside. She continues to repeat SOB. Repeat CXR this morning reveals ongoing moderate right pleural effusion with adjacent atelectasis and/or consolidation. Minimally improved from prior. She remains on IV Lasix 40mg Q12 hours. Creatinine this morning is pending. She remains on Coumadin. PHYSICAL EXAM: VITAL SIGNS: Reviewed. GENERAL: Well-developed in no acute distress. NECK: Supple. No JVD or thyromegaly LUNGS: Respirations even and unlabored. Lungs with crackles on the left. No breath sounds on the right at the base. HEART: Regular rate and rhythm. S1 and S2 heard. + systolic murmur noted. EXTREMITIES: Normal range of motion. No clubbing or cyanosis. Peripheral pulses intact. No lower extremity edema ASSESSMENT: Acute on chronic heart failure with reduced EF, EF 2025% Pleural effusions, right greater than left Cardiomyopathy COPD Persistent atrial fibrillation Hypertension Hyperlipidemia Severe mitral valve regurgitation Diabetes type 2 Biventricular AICD, rate set at 80 bpm Chronic kidney disease History of recurrent pleural effusions PLAN: Continue current cardiac medications Dr. Solis discussed case with Dr. Harry. Dr. Solis recommends thoracentesis. Aw aiting pulmonary evaluation. Hold Coumadin pending pulmonary evaluation for thoracentesis Further recommendations pending patient course Nurse practitioner note has been reviewed by physician. Signing provider agrees with the documented findings, assessment, and plan of care. Objective - Vital Signs Vital signs: Vital Signs Temp 97.5 F L 04/26/22 03:32 Pulse 81 04/26/22 03:32 Resp 14 04/26/22 03:32 BP 104/64 04/26/22 03:32 Pulse Ox 92 L 04/26/22 03:32 FiO2 Intake & Output 04/25/22 04/26/22 04/26/22 18:59 06:59 18:59 Intake Total 599 118 Output Total 850 1500 Balance -251 -1500 118 Intake: IV 5 Invasive Line 1 5 Oral 594 118 Output: Urine 850 1500 Other: Voiding Method Toilet Toilet # Voids 1 - Labs CBC & Chem 7: 04/24/22 00:43 04/26/22 08:41 Labs: Abnormal Lab Results - Last 24 Hours (Table) 04/25/22 04/25/22 04/26/22 Range/Units 16:28 19:41 06:28 POC Glucose (mg/dL) 154 H 163 H 127 H (70-110) mg/dL
[2022-04-26 11:52] LABS: Glucose,Whole Blood 162 mg/dL (70-110)
--- NOTE | 2022-04-26 12:33 | US ---
EXAMINATION TYPE: US chest DATE OF EXAM: 04/26/2022 COMPARISON: Radiograph same day CLINICAL HISTORY: 86-year-old female Pleural effusion right TECHNIQUE: Targeted ultrasound of the posterior lower right hemithorax FINDINGS: EXAM MEASUREMENTS: Right Pleural Effusion pocket size: 13.5 cm Right skin surface to fluid distance: 2.7 cm Right side marked for possible thoracentesis outside the dept. Pulmonologists are able to review the images in the patient?s EMR. IMPRESSIONS: Moderate-sized right pleural effusion with underlying atelectasis.
--- NOTE | 2022-04-26 13:18 | P.PN ---
Subjective 86-year-old female with significant past medical history of COPD, atrial fibrillation, congestive heart failure, hypertension, diabetes, severe mitral valve regurgitation, cardiomyopathy, biventricular AICD who presented to the ED with worsening shortness of breath. She reports that over the past 3-4 weeks she has been having gradual increase in shortness of breath. However, last night when she laid down she was having significant shortness of breath and this was not relieved with sitting up that she presented to the emergency department. She was given IV Lasix and reports that she is feeling better this morning. She denies any chest pain, dizziness, palpitations, syncope. Troponin negative 1, BNP elevated at 10,600, creatinine 1.45. Echo from 06/23/21 with an EF of 5 percent and moderate to severe mitral regurgitation. Chest x-ray reveals CHF with pleural effusions right greater than left. EKG shows ventricular pacemaker set at 80 bpm. She was recently seen by Dr. Thakkar in the office and pacer rate was increased to 80 about 3-4 weeks ago, she reports feeling better after this change. 04/25/2022 patient is seen and evaluated sitting up in a chair at bedside; reports feeling better, breathing definitely easier, O2 sat she is 96% on 2 L. Patient is obviously improving with diuretics, renal functioning is on the rise, creatinine is up to 1.50, was 1.45 yesterday; patient has been evaluated by pulmonary service and planning to repeat her chest x-ray; if her chest x-ray is not showing significant improvement we can definitely consider thoracentesis, clinically at this point I don't see value of thoracentesis unless patient has a worsening pulmonary status, or no response noted on chest x-ray findings in the next 24 hours Patient is requesting a consultation with palliative care and hospice care services 04/26/2022 Patient is much symptoms while she is at rest, she still mildly tachypneic especially with exertion but no chest pain. No other new complaints. She is currently On Lasix 40 mg twice daily. Creatinine is stable at 1.5 Pulmonary team on the case for possible thoracocentesis INR subtherapeutic at 1.8 and Coumadin 1.5 mg yesterday which looks like it is home dose. Other than that patient looks like she is at her baseline clinically Objective - Vital Signs Vital signs: Vital Signs Temp 98.0 F 04/26/22 10:40 Pulse 78 04/26/22 10:40 Resp 18 04/26/22 10:40 BP 101/60 04/26/22 10:40 Pulse Ox 96 04/26/22 10:40 FiO2 Intake & Output 04/25/22 04/26/22 04/26/22 18:59 06:59 18:59 Intake Total 599 118 Output Total 850 1500 Balance -251 -1500 118 Intake: IV 5 Invasive Line 1 5 Oral 594 118 Output: Urine 850 1500 Other: Voiding Method Toilet Toilet # Voids 1 - Exam GENERAL: The patient is alert and oriented x3, not in any acute distress. Well developed, well nourished. HEENT: Pupils are round and equally reacting to light. EOMI. No scleral icterus. No conjunctival pallor. Normocephalic, atraumatic. No pharyngeal erythema. No thyromegaly. CARDIOVASCULAR: S1 and S2 present. No murmurs, rubs, or gallops. PULMONARY: Chest is clear to auscultation, no wheezing or crackles. ABDOMEN: Soft, nontender, nondistended, normoactive bowel sounds. No palpable organomegaly. MUSCULOSKELETAL: No joint swelling or deformity. EXTREMITIES: No cyanosis, clubbing, or pedal edema. NEUROLOGICAL: Gross neurological examination did not reveal any focal deficits. SKIN: No rashes. no petechiae. - Labs CBC & Chem 7: 04/24/22 00:43 04/26/22 08:41 Labs: Abnormal Lab Results - Last 24 Hours (Table) 04/25/22 04/25/22 04/26/22 Range/Units 16:28 19:41 06:28 PT (9.0-12.0) sec INR (<1.2) BUN (7-17) mg/dL Creatinine (0.52-1.04) mg/dL Glucose (74-99) mg/dL POC Glucose (mg/dL) 154 H 163 H 127 H (70-110) mg/dL 04/26/22 04/26/22 04/26/22 Range/Units 08:41 08:41 11:33 PT 17.8 H (9.0-12.0) sec INR 1.8 H (<1.2) BUN 44 H (7-17) mg/dL Creatinine 1.53 H (0.52-1.04) mg/dL Glucose 236 H (74-99) mg/dL POC Glucose (mg/dL) 162 H (70-110) mg/dL Assessment and Plan Assessment: 1. Acute exacerbation chronic systolic CHF - Last echocardiogram reveals an EF of 20-25% - Patient has been placed on IV diuretic therapy in form of Lasix 40 mg IV every 12 hours - Patient has been evaluated by cardiology and repeat echocardiogram was not recommended - We will plan to monitor strict VIJAY's, daily weights, low salt and fluid restricted diet 2. Bilateral pleural effusion; likely is related to fluid overload; patient remains on IV diuretic therapy and pulmonary service has been consulted for possible thoracentesis - We will continue with oxygen at 2 L per nasal cannula 3. Hypertension; Entresto 26-24 mg by mouth twice a day 4. Diabetes mellitus type 2; patient takes glipizide at home which has been placed on hold; we will monitor Accu-Cheks before meals and at bedtime with insulin sliding scale 5. Severe cardiomyopathy; patient is status post biventricular AICD with a rate set at 80 bpm; ejection fraction at 20-25% 6. COPD; not in exacerbation; continue with home inhaler therapy 7. Atrial fibrillation; patient is anticoagulated with Coumadin; monitor PT/INR closely 8. Hypothyroidism; levothyroxin 25 MCG daily
--- NOTE | 2022-04-26 15:59 | P.PN ---
Subjective Progress Note Date: 04/26/22 Principal diagnosis: Pleural effusion. Chronic systolic congestive heart failure This is an 86-year-old female familiar to our service, known history of severe LV dysfunction, previous biventricular AICD placement, history of chronic atrial fibrillation, chronic systolic congestive heart failure, history of underlying COPD, patient presented to the ER with 3-4 weeks history of increased shortness of breath that has been gradual. Patient is unable to lay flat, no fever no c hills, no cough, no wheezing, patient was found to have significantly elevated BNP level, previous echocardiogram from June of 2021 showed ejection fraction of 20%, and there is moderate to severe mitral regurgitation. Patient has chronic right-sided pleural effusion, previous thoracentesis of the fluid showed that the fluid was transudate of in nature clearly consistent with CHF. At any rate patient was admitted with the impression of acute on chronic systolic congestive heart failure, and this consult was initiated. Patient is already on diuretics, responding well to diuresis, feeling better, hence I have no plans to arrange for thoracentesis at this point since the patient is responding to medical treatment Reevaluated today on 04/25/2022, patient is feeling better, breathing definitely easier, O2 sat she is 96% on 2 L. Patient is obviously improving with diuretics, renal functioning is on the rise, creatinine is up to 1.50, was 1.45 yesterday, nonetheless the patient is doing better, and I plan to repeat her chest x-ray. Discussed with Dr. Thakkar, if her chest x-ray is not showing significant improvement we can definitely consider thoracentesis, clinically at this point I don't see value of thoracentesis unless patient has a worsening pulmonary status, or no response noted on chest x-ray findings in the next 24 hours Progress note dated 04/26/2022. Very pleasant 86-year-old female that we are asked to see a right-sided pleural effusion. She had an ultrasound which showed a large right-sided pleural effusion. I was called by cardiology to consider a right-sided thoracentesis. We held her blood thinner, we will plan to do that tomorrow. She has a history of LV dysfunction, biventricular AICD placement, chronic atrial fibrillation, chronic systolic CHF, and COPD. She has had a previous thoracentesis done by my partner. Currently, she is on room air. INR is 1.8. Electrolytes are normal. BUN 44, and creatinine 1.53. Ultrasound shows a 13.5 cm pocket of fluid on the right. Objective - Vital Signs Vital signs: Vital Signs Temp 98.0 F 04/26/22 10:40 Pulse 80 04/26/22 11:55 Resp 16 04/26/22 11:55 BP 102/60 04/26/22 11:55 Pulse Ox 94 L 04/26/22 11:55 FiO2 Intake & Output 04/25/22 04/26/22 04/26/22 18:59 06:59 18:59 Intake Total 599 118 Output Total 850 1500 Balance -251 -1500 118 Intake: IV 5 Invasive Line 1 5 Oral 594 118 Output: Urine 850 1500 Other: Voiding Method Toilet Toilet # Voids 1 - Exam No acute distress, oriented 3. No respiratory distress. Room air saturation 94%. HEENT examination is grossly unremarkable. Neck supple. Full range of motion. No adenopathy thyromegaly or neck vein distention. Cardiovascular examination reveals regular rhythm rate. S1-S2 normal. No S3 or S4. No discernible murmur noted. Heart rate 80 bpm. Lungs reveal diminished breath sounds on the right, and dullness on the right. No wheezes. No crackles. Abdomen soft bowel sounds are heard. No masses or tenderness. Extremities are intact. No cyanosis clubbing or edema. Skin is without rash or lesion. Neurologic examination is brief but nonfocal. - Labs CBC & Chem 7: 04/24/22 00:43 04/26/22 08:41 Labs: Abnormal Lab Results - Last 24 Hours (Table) 04/25/22 04/25/22 04/26/22 Range/Units 16:28 19:41 06:28 PT (9.0-12.0) sec INR (<1.2) BUN (7-17) mg/dL Creatinine (0.52-1.04) mg/dL Glucose (74-99) mg/dL POC Glucose (mg/dL) 154 H 163 H 127 H (70-110) mg/dL 04/26/22 04/26/22 04/26/22 Range/Units 08:41 08:41 11:33 PT 17.8 H (9.0-12.0) sec INR 1.8 H (<1.2) BUN 44 H (7-17) mg/dL Creatinine 1.53 H (0.52-1.04) mg/dL Glucose 236 H (74-99) mg/dL POC Glucose (mg/dL) 162 H (70-110) mg/dL Assessment and Plan Assessment: Large right-sided pleural effusion. Chronic systolic congestive heart failure, ejection fraction 20-25%. History of biventricular AICD placement. Severe cardiomyopathy with LV dysfunction. Chronic atrial fibrillation. Severe mitral valve regurgitation. Type 2 diabetes mellitus. Question will COPD. DJD. History of basal cell skin cancer. Plan: Plan dated 04/26/2022. The plan is to do thoracentesis tomorrow. We spoke to the patient about the procedure. She's had the procedure before. She understands the benefits and the risks. She agrees to the procedure. We will do it at the bedside. We will order an ultrasound of the right chest. We hold her blood thinner. We'll make sure there is a consent on the chart. Time with Patient: Less than 30
[2022-04-26 16:35] LABS: Glucose,Whole Blood 174 mg/dL (70-110)
[2022-04-26] MEDS ORDERED: WARFARIN 1 MG TAB PO SCH (17:00)
[2022-04-26] MEDS ORDERED: WARFARIN 2 MG TAB PO ONE (18:00)
[2022-04-26 20:03] LABS: Glucose,Whole Blood 202 mg/dL (70-110)
[2022-04-26] MEDS: ATORVASTATIN 10 MG TAB PO SCH (20:43)
[2022-04-27] MEDS: FUROSEMIDE 10 MG/ML 4 ML VIAL IV SCH ×2 (03:28→14:38)
[2022-04-27 05:49] LABS: Glucose,Whole Blood 115 mg/dL (70-110)
[2022-04-27] MEDS: INSULIN ASPART (NovoLOG) 100 UNIT/ML VIAL SQ SCH ×2 (06:14→12:13)
[2022-04-27] MEDS: LEVOTHYROXINE 25 MCG TAB PO SCH (06:15)
[2022-04-27] MEDS: MIDODRINE 5 MG TAB PO SCH ×2 (06:15→12:13)
[2022-04-27] MEDS: SPIRONOLACTONE 25 MG TAB PO SCH (07:54)
[2022-04-27] MEDS: MULTIVITAMINS, THERA 1 EACH TAB PO SCH (07:54)
[2022-04-27] MEDS: SACUBITRIL/VALSARTAN 24 MG-26 MG TABLET PO SCH (07:55)
[2022-04-27 08:02] VITALS: TEMP 97.9
[2022-04-27 09:56] LABS: INR 1.8 (<1.2); Prothrombin Time 18.1 sec (9.0-12.0)
--- NOTE | 2022-04-27 10:54 | PCN ---
PROCEDURE NOTE PROCEDURE PERFORMED: Right-sided thoracentesis. PREOPERATIVE DIAGNOSES: Large right-sided pleural effusion and shortness of breath. POSTOPERATIVE DIAGNOSES: Large right-sided pleural effusion and shortness of breath. OPERATORS: Dr. Harry and Dr. Whatley. There was informed consent and universal timeout. DESCRIPTION OF PROCEDURE: The patient's procedure took place in the patient's room. The posterior chest was marked by ultrasound. Roughly 1.6 L of dark yellow fluid was removed from the right pleural space. The patient tolerated the procedure well. The fluid will be sent for analysis. We will order a chest x-ray to rule out pneumothorax. There were no complications. MMODL / IJN: [id number] /
--- NOTE | 2022-04-27 11:05 | XR ---
EXAMINATION TYPE: XR chest 1V portable DATE OF EXAM: 04/27/2022 10:56 AM COMPARISON: Chest radiographs from 04/26/2022 TECHNIQUE: XR chest 1V portable Portable AP radiograph of the chest. CLINICAL INDICATION:Female, 87 years old with history of Post thoracentesis, right; FINDINGS: Lungs/Pleura: Decreased size of small right pleural effusion. No left pleural effusion. No focal cons olidation. No sizable pneumothorax. Mild hyperinflation. Stable perihilar calcified granulomas. Pulmonary vascularity: Unremarkable. Heart/mediastinum: Cardiomediastinal silhouette is enlarged and stable. Atherosclerotic calcificatio ns are seen in the aorta. Two lead cardiac conduction device overlying the left hemithorax with lead tips projecting over the right ventricle and right atrium. Musculoskeletal: No acute osseous pathology. Other: Post cholecystectomy clips in the right upper quadrant. IMPRESSION: Decreased size of small right pleural effusion status post thoracentesis. No sizable pneumothorax.
[2022-04-27 11:44] LABS: Glucose,Whole Blood 172 mg/dL (70-110)
[2022-04-27 12:42] VITALS: RESP 20
[2022-04-27 12:43] VITALS: BP 113/74; PULSE 82
--- NOTE | 2022-04-27 13:10 | P.PN ---
Subjective Progress Note Date: 04/27/22 HISTORY OF PRESENT ILLNESS: Patient is a pleasant 86-year-old female with significant past medical history of COPD, atrial fibrillation, congestive heart failure, hypertension, diabetes, severe mitral valve regurgitation, cardiomyopathy, biventricular AICD who presented to the ED with worsening shortness of breath. She reports that over the past 3-4 weeks she has been having gradual increase in shortness of breath. However, last night when she laid down she was having significant shortness of breath and this was not relieved with sitting up that she presented to the emergency department. She was given IV Lasix and reports that she is feeling better this morning. She denies any chest pain, dizziness, palpitations, syncope. Troponin negative 1, BNP elevated at 10,600, creatinine 1.45. Echo from 06/23/21 with an EF of 5 percent and moderate to severe mitral regu rgitation. Chest x-ray reveals CHF with pleural effusions right greater than left. EKG shows ventricular pacemaker set at 80 bpm. She was recently seen by Dr. Thakkar in the office and pacer rate was increased to 80 about 3-4 weeks ago, she reports feeling better after this change. She also reports that she was unable to follow up with roller inspector as an outpatient. 04/25 Patient seen and examined. Patient admits to mild improvement in shortness of breath however still significantly short of breath compared to a few months ago. Receiving IV Lasix with good urine output with mild increasing creatinine up to 1.5. She has had diuresis in the past with acute kidney injury. Pulmonology was consult that with no current recommendations to perform thoracentesis. INR 1.7 Addendum entered and electronically signed by Robert Thakkar DO 04/25/22 13:34: Discussed case with pulmonology. Effusion has been recurrent mainly on the right and transudative likely from heart failure. Multiple hospitalizations in the past with inability to significantly improve effusion and respiratory status with diuretics with previous kidney injury in the past. Therefore recommended thoracentesis. 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 Monitor Cr, chest Xray and progress. 04/26/2022 Patient examined this morning at the bedside. She continues to repeat SOB. Repeat CXR this morning reveals ongoing moderate right pleural effusion with adjacent atelectasis and/or consolidation. Minimally improved from prior. She remains on IV Lasix 40mg Q12 hours. Creatinine this morning is pending. She remains on Coumadin. 04/27/2022 Patient examined at the bedside. Patient underwent right-sided thoracentesis with removal of 1.6 L of dark yellow fluid per pulmonary. Patient denies chest pain or pressure. She remains on IV lasix. Coumadin on hold. INR 1.8 PHYSICAL EXAM: VITAL SIGNS: Reviewed. GENERAL: Well-developed in no acute distress. NECK: Supple. No JVD or thyromegaly LUNGS: Respirations even and unlabored. Lungs diminished. HEART: Regular rate and rhythm. S1 and S2 heard. + systolic murmur noted. EXTREMITIES: Normal range of motion. No clubbing or cyanosis. Peripheral pulses intact. No lower extremity edema ASSESSMENT: Acute on chronic heart failure with reduced EF, EF 2025% Pleural effusions, right greater than left, s/p thoracentesis Cardiomyopathy COPD Persistent atrial fibrillation Hypertension Hyperlipidemia Severe mitral valve regurgitation Diabetes type 2 Biventricular AICD, rate set at 80 bpm Chronic kidney disease History of recurrent pleural effusions PLAN: Continue current cardiac medications Resume Coumadin tonight Stable from a cardiac standpoint Further recommendations pending patient course Nurse practitioner note has been reviewed by physician. Signing provider agrees with the documented findings, assessment, and plan of care. Objective - Vital Signs Vital signs: Vital Signs Temp 97.9 F 04/27/22 07:49 Pulse 82 04/27/22 12:12 Resp 20 04/27/22 12:12 BP 113/74 04/27/22 12:12 Pulse Ox 94 L 04/27/22 12:12 FiO2 Intake & Output 04/26/22 04/27/22 04/27/22 18:59 06:59 18:59 Intake Total 354 180 Output Total 800 625 Balance 354 800 -445 Weight 61.8 kg Intake: Oral 354 180 Output: Urine 800 625 Other: Voiding Method Toilet Toilet # Voids 3 - Labs CBC & Chem 7: 04/24/22 00:43 04/26/22 08:41 Labs: Abnormal Lab Results - Last 24 Hours (Table) 04/26/22 04/26/22 04/27/22 Range/Units 16:32 20:02 05:47 PT (9.0-12.0) sec INR (<1.2) POC Glucose (mg/dL) 174 H 202 H 115 H (70-110) mg/dL 04/27/22 04/27/22 Range/Units 09:14 11:40 PT 18.1 H (9.0-12.0) sec INR 1.8 H (<1.2) POC Glucose (mg/dL) 172 H (70-110) mg/dL
--- NOTE | 2022-04-27 13:49 | P.PN ---
Subjective Progress Note Date: 04/27/22 Principal diagnosis: Pleural effusion. Chronic systolic congestive heart failure This is an 86-year-old female familiar to our service, known history of severe LV dysfunction, previous biventricular AICD placement, history of chronic atrial fibrillation, chronic systolic congestive heart failure, history of underlying COPD, patient presented to the ER with 3-4 weeks history of increased shortness of breath that has been gradual. Patient is unable to lay flat, no fever no c hills, no cough, no wheezing, patient was found to have significantly elevated BNP level, previous echocardiogram from June of 2021 showed ejection fraction of 20%, and there is moderate to severe mitral regurgitation. Patient has chronic right-sided pleural effusion, previous thoracentesis of the fluid showed that the fluid was transudate of in nature clearly consistent with CHF. At any rate patient was admitted with the impression of acute on chronic systolic congestive heart failure, and this consult was initiated. Patient is already on diuretics, responding well to diuresis, feeling better, hence I have no plans to arrange for thoracentesis at this point since the patient is responding to medical treatment Reevaluated today on 04/25/2022, patient is feeling better, breathing definitely easier, O2 sat she is 96% on 2 L. Patient is obviously improving with diuretics, renal functioning is on the rise, creatinine is up to 1.50, was 1.45 yesterday, nonetheless the patient is doing better, and I plan to repeat her chest x-ray. Discussed with Dr. Thakkar, if her chest x-ray is not showing significant improvement we can definitely consider thoracentesis, clinically at this point I don't see value of thoracentesis unless patient has a worsening pulmonary status, or no response noted on chest x-ray findings in the next 24 hours Progress note dated 04/26/2022. Very pleasant 86-year-old female that we are asked to see a right-sided pleural effusion. She had an ultrasound which showed a large right-sided pleural effusion. I was called by cardiology to consider a right-sided thoracentesis. We held her blood thinner, we will plan to do that tomorrow. She has a history of LV dysfunction, biventricular AICD placement, chronic atrial fibrillation, chronic systolic CHF, and COPD. She has had a previous thoracentesis done by my partner. Currently, she is on room air. INR is 1.8. Electrolytes are normal. BUN 44, and creatinine 1.53. Ultrasound shows a 13.5 cm pocket of fluid on the right. Progress note dated 04/27/2022. 87-year-old female, who we were asked to see for a right-sided pleural effusion. Today, she underwent a right-sided thoracentesis. 1.6 L of dark yellow fluid was removed from the right pleural space. The patient tolerated the procedure well. The patient's blood thinner can be removed. The fluid was sent for analysis including chemistry, microbiology, and cytology. The patient's currently on room air. She's not receiving any IV fluids. Labs including the PT of 18.1 and INR 1.8. The patient's glucose was 172. The post-thoracentesis chest x-ray was much improved, without evidence of pneumothorax. Objective - Vital Signs Vital signs: Vital Signs Temp 97.9 F 04/27/22 07:49 Pulse 82 04/27/22 13:09 Resp 20 04/27/22 12:12 BP 113/74 04/27/22 12:12 Pulse Ox 94 L 04/27/22 12:12 FiO2 Intake & Output 04/26/22 04/27/22 04/27/22 18:59 06:59 18:59 Intake Total 354 180 Output Total 800 625 Balance 354 -800 -445 Weight 61.8 kg Intake: Oral 354 180 Output: Urine 800 625 Other: Voiding Method Toilet Toilet # Voids 3 - Exam No acute distress, oriented 3. No respiratory distress. Room air saturation 95%. HEENT examination is grossly unremarkable. Neck supple. Full range of motion. No adenopathy thyromegaly or neck vein distention. Cardiovascular examination reveals regular rhythm rate. S1-S2 normal. No S3 or S4. No discernible murmur noted. Heart rate 82 bpm. Lungs reveal diminished breath sounds on the right, and dullness on the right. No wheezes. No crackles. Abdomen soft bowel sounds are heard. No masses or tenderness. Extremities are intact. No cyanosis clubbing or edema. Skin is without rash or lesion. Neurologic examination is brief but nonfocal. - Labs CBC & Chem 7: 04/24/22 00:43 04/26/22 08:41 Labs: Abnormal Lab Results - Last 24 Hours (Table) 04/26/22 04/26/2223 Range/Units 16:32 20:02 05:47 PT (9.0-12.0) sec INR (<1.2) POC Glucose (mg/dL) 174 H 202 H 115 H (70-110) mg/dL 04/27/22 04/27/22 Range/Units 09:14 11:40 PT 18.1 H (9.0-12.0) sec INR 1.8 H (<1.2) POC Glucose (mg/dL) 172 H (70-110) mg/dL Assessment and Plan Assessment: Large right-sided pleural effusion, S/P thoracentesis, on 04/27/2022, with 1.6 L removed. Chronic systolic congestive heart failure, ejection fraction 20-25%. History of biventricular AICD placement. Severe cardiomyopathy with LV dysfunction. Chronic atrial fibrillation. Severe mitral valve regurgitation. Type 2 diabetes mellitus. Question will COPD. DJD. History of basal cell skin cancer. Plan: Plan dated 04/26/2022. The plan is to do thoracentesis tomorrow. We spoke to the patient about the procedure. She's had the procedure before. She understands the benefits and the risks. She agrees to the procedure. We will do it at the bedside. We will order an ultrasound of the right chest. We hold her blood thinner. We'll make sure there is a consent on the chart. Plan dated 04/27/2022. The patient tolerated the thoracentesis very well. She can resume her warfarin today. No need to follow-up with us in our office. In the future, should the patient again developed a right-sided pleural effusion, we'll be happy to drain her again. The fluid was sent for analysis including cytology, chemistry, and microbiology. It likely represents a transudate. We will continue to follow make recommendations along the way. The postthoracentesis chest x-ray was reviewed. Time with Patient: Less than 30
[2022-04-27] MEDS ORDERED: WARFARIN 2 MG TAB PO ONE (18:00)
[2022-04-27 21:20] LABS: Appearance,BF Slightly Cloudy
[2022-04-27 22:10] LABS: Glucose, BF Source Pleural Fluid; Glucose, Body Fluid 157 mg/dL; LDH, Body Fluid Source Pleural Fluid; T. Protein, Body Fluid Source Pleural Fluid; Total Protein, Body Fluid 3830 mg/dL
--- NOTE | 2022-04-28 01:00 | P.DS ---
Providers Date of admission: 04/26/22 02:40 Attending physician: Todd Jarrett Consults: 04/24/22 02:12 Consult Physician Routine Consulting Provider: Robert Thakkar Consult Reason/Comments: heart failure Do you want consulting provider notified?: Yes 04/24/22 08:55 Consult Physician Routine Consulting Provider: Rupal Moran Reason/Comments: eval for right thoracentesis Do you want consulting provider notified?: Yes Primary care physician: [facility] Course: Diagnoses: 1. Acute exacerbation chronic systolic CHF 2. Bilateral pleural effusion; status post right paracentesis on 04/28 patient tolerated the procedure well and follow-up chest x-rays negative and 50 for discharge by children's counselor 3. Hypertension; 4. Diabetes mellitus type 2; 5. Severe cardiomyopathy; patient is status post biventricular AICD with a rate set at 80 bpm; ejection fraction at 20-25% 6. COPD; not in exacerbation; 7. Atrial fibrillation; 8. Hypothyroidism; levothyroxin 25 MCG daily Hospital course: 86-year-old female with significant past medical history of COPD, atrial fibrillation, congestive heart failure, hypertension, diabetes, severe mitral valve regurgitation, cardiomyopathy, biventricular AICD who presented to the ED with worsening shortness of breath. Patient was treated with IV graft X showed interval improvement however patient was not back to baseline, pulmonary team were consulted she underwent thoracocentesis and she feels much better as his right pleural effusion significantly improved on today's chest x-ray. No evidence of pneumothorax. Patient is back to baseline fully awake and oriented sitting at the edge of the bed looks relaxed and talking comfortably with no tachypnea. No use of accessory muscles. Patient wants to go home today. Gisell ent was cleared for discharge by pulmonary service and cardiology. Her INR today is 1.8 for her proximal atrial fibrillation, she received 2 mg of Coumadin tonight which is characterized does increase her centimeters from 1.5 up to 2 mg, patient was instructed to follow up with her PCP in 2-3 days to check her INR and she is agreeable. Patient was cleared for discharge by pulmonary service and cardiology Problems and management plan were discussed with the patient and he verbalized understanding and acceptance Patient was found stable and can be discharged home in guarded prognosis however he needs follow-up as an outpatient. Patient was instructed to follow up with PCP Dr. Hernandez within one week and patient agrees Patient was instructed to follow-up with cardiology appointment in 1 week and she is reached. Also patient and discussed her case with hospice team and she wants to go for hospice care as an outpatient, social insurance administrator on the case and discussed with her as well. Patient wants to be DO NOT INTUBATE as Physical exam Gen: patient is a AAOx3, no distress CVS: S1-S2, RRR, no murmur Lungs: B/L CTA, no wheezing Abdomen: soft, no distention, no tenderness, positive bowel sounds Extremity: no leg edema or induration Time spent more than 35 minutes Patient Condition at Discharge: Fair Plan - Discharge Summary New Discharge Prescriptions: Continue Simvastatin [Zocor] 20 mg PO HS Levothyroxine Sodium [Synthroid] 25 mcg PO AC-BRKFST Warfarin [Coumadin] 1.5 mg PO MOTUWETHFRSA@1700 Midodrine HCl [ProAmatine] 10 mg PO TID-W/MEALS Loperamide HCl [Imodium A-D] 1 mg PO BID glipiZIDE 7.5 mg PO BID Furosemide [Lasix] 40 mg PO DAILY Spironolactone [Aldactone] 12.5 mg PO DAILY Sacubitril/Valsartan [Entresto 24 mg-26 mg Tablet] 0.5 tab PO BID Multivitamins, Thera [Multivitamin (formulary)] 1 tab PO DAILY Changed Warfarin [Coumadin] 2 mg PO CALVIN@1700 #5 tab Discharge Medication List Simvastatin [Zocor] 20 mg PO HS 10/22/15 [History] Levothyroxine Sodium [Synthroid] 25 mcg PO AC-BRKFST 03/30/18 [History] Warfarin [Coumadin] 1.5 mg PO MOTUWETHFRSA@1700 03/30/18 [History] Furosemide [Lasix] 40 mg PO DAILY 05/21/21 [History] Midodrine HCl [ProAmatine] 10 mg PO TID-W/MEALS 06/22/21 [History] Loperamide HCl [Imodium A-D] 1 mg PO BID 03/10/22 [History] Sacubitril/Valsartan [Entresto 24 mg-26 mg Tablet] 0.5 tab PO BID 03/10/22 [History] Spironolactone [Aldactone] 12.5 mg PO DAILY 03/10/22 [History] glipiZIDE 7.5 mg PO BID 03/10/22 [History] Multivitamins, Thera [Multivitamin (formulary)] 1 tab PO DAILY 04/24/22 [History] Warfarin [Coumadin] 2 mg PO CALVIN@1700 #5 tab 04/27/22 [Rx] Follow up Appointment(s)/Referral(s): Robert Thakkar DO [STAFF PHYSICIAN] - 05/12/22 3:00 pm Alberto Solomon MD [Primary Care Provider] - 05/04/22 1:30 pm (With Nurse Practitioner Liana.) Patient Instructions/Handouts: Heart Failure (DC) Activity/Diet/Wound Care/Special Instructions: [facility] - [phone] - nurse will contact you this afternoon and wi ll schedule home visit for today heart healthy diet Activity is restricted till you see your doctor Recheck INR in 2-3 days through your primary office. Discharge Disposition: HOME SELF-CARE
== END 2022-04-27 15:30 | disposition home or self-care (01) | DRG 291 ==
LOC: EC 22:53 → 3SCARD 04-24 00:51 → OBSVTOIN 04-26 02:40
PROVIDERS: ADMIT Hospitalist; ATTEND Hospitalist
PROC: 0W9930Z Drainage of Right Pleural Cavity with Drainage Device, Percutaneous Approach (ICD-10-PCS; principal; 2022-04-26)
DX: I13.0 Hypertensive heart and chronic kidney disease with heart failure and stage 1 through stage 4 chronic kidney disease, or unspecified chronic kidney disease (principal); I50.23 Acute on chronic systolic (congestive) heart failure; I48.19 Other persistent atrial fibrillation; N17.9 Acute kidney failure, unspecified; E03.9 Hypothyroidism, unspecified; Z79.890 Hormone replacement therapy; E78.5 Hyperlipidemia, unspecified; I42.9 Cardiomyopathy, unspecified; I34.0 Nonrheumatic mitral (valve) insufficiency; I25.10 Atherosclerotic heart disease of native coronary artery without angina pectoris; J44.9 Chronic obstructive pulmonary disease, unspecified; M19.90 Unspecified osteoarthritis, unspecified site; N18.9 Chronic kidney disease, unspecified; Z79.84 Long term (current) use of oral hypoglycemic drugs; Z79.01 Long term (current) use of anticoagulants; Z85.828 Personal history of other malignant neoplasm of skin; Z90.710 Acquired absence of both cervix and uterus; R01.1 Cardiac murmur, unspecified; Z95.810 Presence of automatic (implantable) cardiac defibrillator; Z87.19 Personal history of other diseases of the digestive system; Z79.899 Other long term (current) drug therapy; Z88.8 Allergy status to other drugs, medicaments and biological substances; Z91.048 Other nonmedicinal substance allergy status; Z98.51 Tubal ligation status; Z90.49 Acquired absence of other specified parts of digestive tract
CPT/HCPCS: 36415; 71045; 76604; 80048; 80053; 82945; 83036; 83615; 83880; 84157; 84484; 85025; 85610; 85730; 87070; 87205; 88108; 88305; 88341; 88342; 89050; 93005; 96374; 99285

== ENCOUNTER 2022-05-11 16:52 | Inpatient (IN) | payer MEDICARE, BC ==
[2022-05-11] MEDS ORDERED: IPRATROPIUM-ALBUTEROL 3 ML NEB INHALATION STA (17:04)
[2022-05-11] MEDS ORDERED: ALBUTEROL NEBULIZED 2.5 MG/3 ML INHALATION STA (17:04)
[2022-05-11 17:25] LABS: Basophils # (A) 0.1 k/uL (0-0.2); Basophils % (A) 1 %; Eosinophils # (A) 0.2 k/uL (0-0.7); Eosinophils % (A) 2 %; HCT 49.8 % (34.0-46.0); HGB 16.6 gm/dL (11.4-16.0); Lymphocytes # (A) 3.1 k/uL (1.0-4.8); Lymphocytes % (A) 27 %; MCH 31.8 pg (25.0-35.0); MCHC 33.3 g/dL (31.0-37.0); MCV 95.6 fL (80.0-100.0); Mean Platelet Volume 8.7; Monocytes # (A) 0.6 k/uL (0-1.0); Monocytes % (A) 5 %; Neutrophils # (A) 7.5 k/uL (1.3-7.7); Neutrophils % (A) 64 %; Platelet Count 201 k/uL (150-450); RBC 5.21 m/uL (3.80-5.40); RDW 13.3 % (11.5-15.5); WBC 11.7 k/uL (3.8-10.6)
[2022-05-11 17:39] LABS: INR 1.8 (<1.2); Partial Thromboplastin Time 27.9 sec (22.0-30.0); Prothrombin Time 17.7 sec (9.0-12.0)
[2022-05-11 17:57] LABS: Albumin 4.4 g/dL (3.5-5.0); Calcium 9.2 mg/dL (8.4-10.2); Magnesium 2.2 mg/dL (1.6-2.3); Potassium 5.1 mmol/L (3.5-5.1); Total Bilirubin 1.3 mg/dL (0.2-1.3); Total Protein 7.5 g/dL (6.3-8.2)
--- NOTE | 2022-05-11 18:15 | XR ---
EXAMINATION TYPE: XR chest 1V portable DATE OF EXAM: 05/11/2022 5:22 PM COMPARISON: Chest radiographs from 04/27/2022 TECHNIQUE: XR chest 1V portable Frontal view of the chest. CLINICAL INDICATION:Female, 87 years old with history of mark; FINDINGS: Lungs/Pleura: No evidence of focal consolidation or pneumothorax. Blunting of the costophrenic angles is present. Pulmonary vascularity: Pulmonary vascular congestion. Heart/mediastinum: Cardiomediastinal silhouette is enlarged and stable. Two lead cardiac conduction d evice overlying the left hemithorax with lead tips projecting over the right ventricle and right atri um. Musculoskeletal: No acute osseous pathology. IMPRESSION: Cardiomegaly, pulmonary vascular congestion and bilateral pleural effusions. Correlate with BNP for c ongestive heart failure.
[2022-05-11] MEDS ORDERED: FUROSEMIDE 10 MG/ML 4 ML VIAL IV STA (18:22)
[2022-05-11] MEDS ORDERED: ACETAMINOPHEN TAB 325 MG TAB PO PRN (18:25)
[2022-05-11] MEDS ORDERED: NALOXONE 0.4 MG/ML 1 ML VIAL IV PRN (18:25)
--- NOTE | 2022-05-11 18:36 | ED ---
General Adult HPI - General Chief complaint: Shortness of Breath Stated complaint: SOB Time Seen by Provider: 05/11/22 17:02 Source: patient, RN notes reviewed, old records reviewed Mode of arrival: EMS Limitations: no limitations - History of Present Illness Initial comments: 87-year-old female presenting for evaluation of increased dyspnea. Patient has had symptoms over the past several days. She had a hot hospital admission one month ago for CHF exacerbation. She denies fever. Denies chest pain. She has been taking her medications as prescribed. - Related Data Home Medications Medication Instructions Recorded Confirmed Simvastatin [Zocor] 20 mg PO HS 10/22/15 05/11/22 Levothyroxine Sodium [Synthroid] 25 mcg PO AC-BRKFST 03/30/18 05/11/22 Warfarin [Coumadin] 1.5 mg PO MOTUWETHFRSA@1700 03/30/18 05/11/22 Furosemide [Lasix] 40 mg PO DAILY 05/21/21 05/11/22 Midodrine HCl [ProAmatine] 10 mg PO TID-W/MEALS 06/22/21 05/11/22 Loperamide HCl [Imodium A-D] 1 mg PO BID 03/10/22 05/11/22 Sacubitril/Valsartan [Entresto 24 0.5 tab PO BID 03/10/22 05/11/22 mg-26 mg Tablet] Spironolactone [Aldactone] 12.5 mg PO DAILY 03/10/22 05/11/22 glipiZIDE 7.5 mg PO BID 03/10/22 05/11/22 Multivitamins, Thera [Multivitamin 1 tab PO DAILY 04/24/22 05/11/22 (formulary)] Previous Rx's Medication Instructions Recorded Warfarin [Coumadin] 2 mg PO CALVIN@1700 #5 tab 04/27/22 Allergies Allergy/AdvReac Type Severity Reaction Status Date / Time quinidine Allergy Rash/Hives Verified 05/11/22 17:44 CLEAR PLASTIC TAPE Allergy Rash/Hives Uncoded 05/11/22 17:44 Review of Systems ROS Statement: Those systems with pertinent positive or pertinent negative responses have been documented in the HPI. ROS Other: All systems not noted in ROS Statement are negative. Past Medical History Past Medical History: Atrial Fibrillation, Cancer, Heart Failure, Diabetes Mellitus, Hyperlipidemia, Osteoarthritis (OA), Skin Disorder, Vascular Disorder Additional Past Medical History / Comment(s): basal cell skin cancer, rash on face, History of Any Multi-Drug Resistant Organisms: None Reported Past Surgical History: AICD, Appendectomy, Bladder Surgery, Bowel Resection, Cholecystectomy, Heart Catheterization, Hysterectomy, Tonsillectomy, Tubal Ligation Additional Past Surgical History / Comment(s): venogram/fluoroscopy, neema catar acts, Past Anesthesia/Blood Transfusion Reactions: No Reported Reaction Type of Cardiac Device: AICD Device Placement Date:: 2007 Past Psychological History: No Psychological Hx Reported Smoking Status: Never smoker Past Alcohol Use History: None Reported Past Drug Use History: None Reported - Past Family History Father Family Medical History: Cancer Mother Family Medical History: Cancer Sister(s) Family Medical History: Cancer, Deep Vein Thrombosis (DVT) Additional Family Medical History / Comment(s): skin cancer Brother(s) History Unknown: Yes Family Medical History: Cancer Additional Family Medical History / Comment(s): skin cancer General Exam Limitations: no limitations General appearance: alert, in no apparent distress Head exam: Present: atraumatic, normocephalic Eye exam: Present: normal appearance, PERRL ENT exam: Present: normal exam Neck exam: Present: normal inspection. Absent: tenderness, meningismus Respiratory exam: Present: respiratory distress, rales, accessory muscle use. Absent: wheezes Cardiovascular Exam: Present: regular rate, normal rhythm GI/Abdominal exam: Present: soft. Absent: distended, tenderness, guarding, rebo und Extremities exam: Present: normal inspection, normal capillary refill. Absent: pedal edema Neurological exam: Present: alert, oriented X3, CN II-XII intact. Absent: motor sensory deficit Psychiatric exam: Present: normal affect, normal mood Skin exam: Present: warm, dry, intact. Absent: cyanosis, diaphoretic Course Vital Signs 05/11/22 05/11/22 05/11/22 16:55 17:03 17:09 Temperature 97.0 F L Pulse Rate 80 Respiratory 30 H 30 H Rate Blood Pressure 160/96 O2 Sat by Pulse 99 Oximetry Fraction of 100 Inspired Oxygen (FIO2) 05/11/22 05/11/22 05/11/22 17:47 17:49 18:06 Temperature Pulse Rate 80 80 80 Respiratory 20 Rate Blood Pressure 128/75 O2 Sat by Pulse 98 Oximetry Fraction of Inspired Oxygen (FIO2) EKG Findings - EKG Comments: EKG Findings:: EKG: Paced rhythm rate of 80, QRS duration 167, QTC 485 - EKG Results: EKG: interpreted by MICHELLE Medical Decision Making - Medical Decision Making Was pt. sent in by a medical professional or institution (, PA, POULTRY HATCHERY SUPERVISOR, urgent care, hospital, or fdc...) When possible be specific @ -No Did you speak to anyone other than the patient for history (EMS, parent, family, police, friend...)? What history was obtained from this source @ -EMS Did you review nursing and triage notes (agree or disagree)? Why? @ -I reviewed and agree with nursing and triage notes Were old charts reviewed (outside hosp., previous admission, EMS record, old EKG, old radiological studies, urgent care reports/EKG's, fdc records)? Report findings @ -The previous laboratory testing Differential Diagnosis (chest pain, altered mental status, abdominal pain women, abdominal pain men, vaginal bleeding, weakness, fever, dyspnea, syncope, headache, dizziness, GI bleed, back pain, seizure, CVA, palpatations, mental health, musculoskeletal)? @ -Differential Dyspnea: Coronary syndrome, arrhythmia, tamponade, asthma, COPD, pulmonary embolism, pneumonia, pneumothorax, pulmonary effusion, anaphylaxis, diabetic ketoacidosis, flailed chest, pulmonary contusion, diaphragmatic rupture, anemia, neuromuscular, this is not meant to be an all-inclusive list. EKG interpreted by me (3pts min.). @ -As above X-rays interpreted by me (1pt min.). @ -Pulmonary edema and bilateral pleural effusions CT interpreted by me (1pt min.). @ -None done U/S interpreted by me (1pt. min.). @ -None done What testing was considered but not performed or refused? (CT, X-rays, U/S, labs)? Why? @ -None What meds were considered but not given or refused? Why? @ -None Did you discuss the management of the patient with other professionals (professionals i.e. , ROB, POULTRY HATCHERY SUPERVISOR, lab, RT, psych nurse, secondary social studies teacher, clam digger, teacher, amphibious operations officer, case consultant)? Give summary @ -Case discussed with the admitting team Was smoking cessation discussed for >3mins.? @ -No Was critical care preformed (if so, how long)? @ -Yes Were there social determinants of health that impacted care today? How? (Homelessness, low income, unemployed, alcoholism, drug addiction, transportation, low edu. Level, literacy, decrease access to med. care, [facility], rehab)? @ -No Was there de-escalation of care discussed even if they declined (Discuss DNR or withdrawal of care, Hospice)? DNR status @ -No What co-morbidities impacted this encounter? (DM, HTN, Smoking, COPD, CAD, Cancer, CVA, ARF, Chemo, Hep., AIDS, mental health diagnosis, sleep apnea, morbid obesity)? @ -CHF Was patient admitted / discharged? Hospital course, mention meds given and route, prescriptions, significant lab abnormalities, going to OR and other pertinent info. @ -87-year-old female history of CHF presenting with severe dyspnea requiring BiPAP. She was placed on CPAP during transport by paramedics. She was hypoxic prior to administration of CPAP. Upon arrival she is in moderate respiratory distress. She is continued on CPAP, chest x-ray showing pulmonary edema and bilateral effusions. She has an elevated BNP at 9000. She will be admitted for IV diuresis and respiratory support. Undiagnosed new problem with uncertain prognosis? @ -No Drug Therapy requiring intensive monitoring for toxicity (Heparin, Nitro, Insulin, Cardizem)? @ -No Were any procedures done? @ -No Diagnosis/symptom? @ -Respiratory failure secondary to CHF Acute, or Chronic, or Acute on Chronic? @ -Acute Uncomplicated (without systemic symptoms) or Complicated (systemic symptoms)? @ -[Complicated Side effects of treatment? @ -No Exacerbation, Progression, or Severe Exacerbation? @ -No Poses a threat to life or bodily function? How? (Chest pain, [place], [place], pneumonia, PE, COPD, DKA, ARF, appy, cholecystitis, CVA, Diverticulitis, Homicidal, Suicidal, threat to staff... and all critical care pts) @ -Yes, hypoxia, cardiopulmonary arrest - Lab Data Result diagrams: 05/11/22 17:03 05/11/22 17:03 Lab Results 05/11/22 05/11/22 05/11/22 Range/Units 17:03 17:03 17:03 WBC 11.7 H (3.8-10.6) k/uL RBC 5.21 (3.80-5.40) m/uL Hgb 16.6 H (11.4-16.0) gm/dL Hct 49.8 H (34.0-46.0) % MCV 95.6 (80.0-100.0) fL MCH 31.8 (25.0-35.0) pg MCHC 33.3 (31.0-37.0) g/dL RDW 13.3 (11.5-15.5) % Plt Count 201 (150-450) k/uL MPV 8.7 Neutrophils % 64 % Lymphocytes % 27 % Monocytes % 5 % Eosinophils % 2 % Basophils % 1 % Neutrophils # 7.5 (1.3-7.7) k/uL Lymphocytes # 3.1 (1.0-4.8) k/uL Monocytes # 0.6 (0-1.0) k/uL Eosinophils # 0.2 (0-0.7) k/uL Basophils # 0.1 (0-0.2) k/uL PT 17.7 H (9.0-12.0) sec INR 1.8 H (<1.2) APTT 27.9 (22.0-30.0) sec Sodium 140 (137-145) mmol/L Potassium 5.1 (3.5-5.1) mmol/L Chloride 103 (98-107) mmol/L Carbon Dioxide 23 (22-30) mmol/L Anion Gap 14 mmol/L BUN 40 H (7-17) mg/dL Creatinine 1.51 H (0.52-1.04) mg/dL Est GFR (CKD-EPI)AfAm 35 (>60 ml/min/1.73 sqM) Est GFR (CKD-EPI)NonAf 31 (>60 ml/min/1.73 sqM) Glucose 194 H (74-99) mg/dL Plasma Lactic Acid Alex (0.7-2.0) mmol/L Calcium 9.2 (8.4-10.2) mg/dL Magnesium 2.2 (1.6-2.3) mg/dL Total Bilirubin 1.3 (0.2-1.3) mg/dL AST 35 (14-36) U/L ALT 27 (4-34) U/L Alkaline Phosphatase 96 (38-126) U/L Troponin I (0.000-0.034) ng/mL NT-Pro-B Natriuret Pep pg/mL Total Protein 7.5 (6.3-8.2) g/dL Albumin 4.4 (3.5-5.0) g/dL 05/11/22 05/11/22 05/11/22 Range/Units 17:03 17:03 17:03 WBC (3.8-10.6) k/uL RBC (3.80-5.40) m/uL Hgb (11.4-16.0) gm/dL Hct (34.0-46.0) % MCV (80.0-100.0) fL MCH (25.0-35.0) pg MCHC (31.0-37.0) g/dL RDW (11.5-15.5) % Plt Count (150-450) k/uL MPV Neutrophils % % Lymphocytes % % Monocytes % % Eosinophils % % Basophils % % Neutrophils # (1.3-7.7) k/uL Lymphocytes # (1.0-4.8) k/uL Monocytes # (0-1.0) k/uL Eosinophils # (0-0.7) k/uL Basophils # (0-0.2) k/uL PT (9.0-12.0) sec INR (<1.2) APTT (22.0-30.0) sec Sodium (137-145) mmol/L Potassium (3.5-5.1) mmol/L Chloride (98-107) mmol/L Carbon Dioxide (22-30) mmol/L Anion Gap mmol/L BUN (7-17) mg/dL Creatinine (0.52-1.04) mg/dL Est GFR (CKD-EPI)AfAm (>60 ml/min/1.73 sqM) Est GFR (CKD-EPI)NonAf (>60 ml/min/1.73 sqM) Glucose (74-99) mg/dL Plasma Lactic Acid Alex 2.7 H* (0.7-2.0) mmol/L Calcium (8.4-10.2) mg/dL Magnesium (1.6-2.3) mg/dL Total Bilirubin (0.2-1.3) mg/dL AST (14-36) U/L ALT (4-34) U/L Alkaline Phosphatase (38-126) U/L Troponin I 0.015 (0.000-0.034) ng/mL NT-Pro-B Natriuret Pep 9090 pg/mL Total Protein (6.3-8.2) g/dL Albumin (3.5-5.0) g/dL Critical Care Time Critical Care Time: Yes Total Critical Care Time: 35 Disposition Clinical Impression: Acute on chronic systolic heart failure, Congestive heart failure Disposition: ADMITTED IP TO THIS HOSP Condition: Serious Is patient prescribed a controlled substance at d/c from ED?: No Referrals: Alberto Solomon MD [Primary Care Provider] - 1-2 days Time of Disposition: 18:36
[2022-05-11] MEDS ORDERED: IPRATROPIUM-ALBUTEROL 3 ML NEB INHALATION SCH (20:00)
[2022-05-11] MEDS: FUROSEMIDE 10 MG/ML 4 ML VIAL IV SCH ×2 (20:24→22:41)
[2022-05-11] MEDS: IPRATROPIUM 0.5 MG/2.5 ML NEBU INHALATION SCH (21:04)
[2022-05-11] MEDS: ALBUTEROL NEBULIZED 2.5 MG/3 ML INHALATION SCH (21:04)
[2022-05-11] MEDS ORDERED: LOPERAMIDE HCL 2 MG PO SCH (22:15)
[2022-05-11] MEDS: SACUBITRIL/VALSARTAN 24 MG-26 MG TABLET PO SCH (22:41)
[2022-05-12 06:07] LABS: Glucose,Whole Blood 238 mg/dL (70-110)
[2022-05-12] MEDS: LEVOTHYROXINE 25 MCG TAB PO SCH (06:18)
[2022-05-12] MEDS: IPRATROPIUM 0.5 MG/2.5 ML NEBU INHALATION SCH ×4 (09:06→21:48)
[2022-05-12] MEDS: ALBUTEROL NEBULIZED 2.5 MG/3 ML INHALATION SCH ×4 (09:06→21:48)
[2022-05-12] MEDS: FUROSEMIDE 10 MG/ML 4 ML VIAL IV SCH ×2 (09:18→20:26)
[2022-05-12] MEDS: SACUBITRIL/VALSARTAN 24 MG-26 MG TABLET PO SCH ×2 (09:19→20:27)
--- NOTE | 2022-05-12 10:19 | P.CRDCN ---
History of Present Illness History of present illness: HISTORY OF PRESENT ILLNESS: This is a 87-year-old female with a past medical history significant for hypertension, hyperlipidemia, diabetes, congestive heart failure, valvular heart disease, biventricular AICD secondary to complete heart block, chronic kidney disease, pleural effusions with history of thoracentesis, and nonischemic cardiomyopathy. Patient follows in the office with Dr. Thakkar. We have been asked to see the patient in consultation for congestive heart failure. Patient examined at the bedside. Son is at the bedside and providing additional history. Patient states she has been feeling short of breath for the past 2-3 days. She denies any chest pain or pressure. Patient has been compliant with her medications. She reports following a low-sodium diet. Patient was found to be in acute congestive heart failure and was started on IV Lasix. * EKG reveals paced rhythm * Chest xray cardiomegaly, pulmonary vascular congestion and bilateral pleural effusions. * Laboratory data: WBC 11.7. Hemoglobin 16.6. Platelet count 201. INR 1.8. Sodium 140. Potassium 5.1. BUN 40. Creatinine 1.51. Lactic acid 2.7. Repeat 1.6. Troponin 0.015. ProBNP 9090. * Current home cardiac medications include Lasix 40 mg daily, Entresto 24-26mg 0.5 tab BID, Midodrine 10mg TID with meals, simvastatin 20 mg at night, warfarin 2 mg on Tuesday and 1.5 mg Tuesday and Tuesday. * Most recent echocardiogram obtained in June 2021 revealing ejection fraction 20-25%, moderate to severe MR, trace to mild aortic regurgitation, mild tricuspid regurgitation * Cardiac catheterization history: 2007 revealing normal coronary arteries REVIEW OF SYSTEMS: At the time of my exam: CONSTITUTIONAL: Denies fever or chills. HEENT: Denies blurred vision, vision changes, or eye pain. Denies hemoptysis CARDIOVASCULAR: Denies chest pain. Denies orthopnea. Denies PND. Denies palpitations RESPIRATORY: Denies shortness of breath. GASTROINTESTINAL: Denies abdominal pain. Denies nausea or vomiting. HEMATOLOGIC: Denies bleeding disorders. GENITOURINARY: Denies any blood in urine. SKIN: Denies pruitis. Denies rash. PHYSICAL EXAM: VITAL SIGNS: Reviewed. GENERAL: Well-developed in no acute distress. HEENT: Head is normocephalic. Pupils are equal, round. Sclerae anicteric. Mucous membranes of the mouth are moist. Neck supple. No JVD or thyromegaly LUNGS: Respirations even and unlabored. Lungs diminished bilaterally, worse on the right HEART: Regular rate and rhythm. S1 and S2 heard. Systolic murmur noted ABDOMEN: Soft. Nondistended. Nontender. EXTREMITIES: Normal range of motion. No clubbing or cyanosis. Peripheral pulses intact. No lower extremity edema NEUROLOGIC: Awake and alert. Oriented x 3. ASSESSMENT: Shortness of breath Acute on chronic heart failure with reduced EF, EF 20-25% Recurrent bilateral pleural effusions with history of multiple thoracentesis in the past, most recently 04/27/2022 Nonischemic cardiomyopathy Normal coronary arteries, per cardiac catheterization in 2007 Chronic kidney disease Hypertension Hyperlipidemia Diabetes History of complete heart block History of biventricular AICD PLAN: Continue IV Lasix 40 mg every 12 hours Accurate I&O, daily weights, and monitoring of kidney function Resume home cardiac medications Consult pulmonary for evaluation Further recommendations pending patient's course Nurse practitioner note has been reviewed by physician. Signing provider agrees with the documented findings, assessment, and plan of care. Past Medical History Past Medical History: Atrial Fibrillation, Cancer, Heart Failure, Diabetes Mellitus, Hyperlipidemia, Osteoarthritis (OA), Skin Disorder, Vascular Disorder Additional Past Medical History / Comment(s): basal cell skin cancer, rash on fa ce, History of Any Multi-Drug Resistant Organisms: None Reported Past Surgical History: AICD, Appendectomy, Bladder Surgery, Bowel Resection, Cholecystectomy, Heart Catheterization, Hysterectomy, Tonsillectomy, Tubal Ligation Additional Past Surgical History / Comment(s): venogram/fluoroscopy, neema cataracts, Past Anesthesia/Blood Transfusion Reactions: No Reported Reaction Type of Cardiac Device: AICD Device Placement Date:: 2007 Past Psychological History: No Psychological Hx Reported Additional Psychological History / Comment(s): Pt resides with her spouse and sometimes their adult son stays with them. She has [facility] palliative care. She has home oxygen which she wears at HS and prn during daytime. She has a glucometer, walker. Spouse drives, does housework. Smoking Status: Never smoker Past Alcohol Use History: None Reported Past Drug Use History: None Reported - Past Family History Father Family Medical History: Cancer Mother Family Medical History: Cancer Sister(s) Family Medical History: Cancer, Deep Vein Thrombosis (DVT) Additional Family Medical History / Comment(s): skin cancer Brother(s) History Unknown: Yes Family Medical History: Cancer Additional Family Medical History / Comment(s): skin cancer Medications and Allergies Home Medications Medication Instructions Recorded Confirmed Type Simvastatin [Zocor] 20 mg PO HS 10/22/15 05/11/22 History Levothyroxine Sodium [Synthroid] 25 mcg PO AC-BRKFST 03/30/18 05/11/22 History Warfarin [Coumadin] 1.5 mg PO MOTUWETHFRSA@1700 03/30/18 05/11/22 History Furosemide [Lasix] 40 mg PO DAILY 05/21/21 05/11/22 History Midodrine HCl [ProAmatine] 10 mg PO TID-W/MEALS 06/22/21 05/11/22 History Loperamide HCl [Imodium A-D] 1 mg PO BID 03/10/22 05/11/22 History Sacubitril/Valsartan [Entresto 24 0.5 tab PO BID 03/10/22 05/11/22 History mg-26 mg Tablet] Spironolactone [Aldactone] 12.5 mg PO DAILY 03/10/22 05/11/22 History glipiZIDE 7.5 mg PO BID 03/10/22 05/11/22 History Multivitamins, Thera [Multivitamin 1 tab PO DAILY 04/24/22 05/11/22 History (formulary)] Warfarin [Coumadin] 2 mg PO CALVIN@1700 #5 tab 04/27/22 05/11/22 Rx Allergies Allergy/AdvReac Type Severity Reaction Status Date / Time quinidine Allergy Rash/Hives Verified 05/11/22 17:44 CLEAR PLASTIC TAPE Allergy Rash/Hives Uncoded 05/11/22 17:44 Physical Exam Vitals: Vital Signs Temp Pulse Pulse Resp BP BP Pulse Ox 05/12/22 09:26 86 05/12/22 09:11 80 96 05/12/22 08:00 97.3 F L 80 16 96/56 95 05/12/22 04:03 05/12/22 04:00 97.9 F 72 22 127/67 98 05/12/22 02:11 05/11/22 23:57 97.8 F 82 18 119/72 98 05/11/22 22:25 98.1 F 78 18 139/72 96 05/11/22 21:31 84 05/11/22 21:06 80 05/11/22 20:07 87 20 97 05/11/22 19:56 05/11/22 18:34 80 20 124/70 97 05/11/22 18:06 80 05/11/22 17:49 80 20 128/75 98 05/11/22 17:47 80 05/11/22 17:09 30 H 05/11/22 17:03 05/11/22 16:55 97.0 F L 80 30 H 160/96 99 FiO2 05/12/22 09:26 05/12/22 09:11 05/12/22 08:00 05/12/22 04:03 100 05/12/22 04:00 05/12/22 02:11 100 05/11/22 23:57 05/11/22 22:25 05/11/22 21:31 05/11/22 21:06 05/11/22 20:07 05/11/22 19:56 100 05/11/22 18:34 05/11/22 18:06 05/11/22 17:49 05/11/22 17:47 05/11/22 17:09 05/11/22 17:03 100 05/11/22 16:55 Intake and Output 05/11/22 05/12/22 05/12/22 22:59 06:59 14:59 Output Total 200 Balance -200 Output: Urine 200 Other: Voiding Method Bedside Commode Bedside Commode Weight 61.235 kg 62.6 kg Results 05/11/22 17:03 05/11/22 17:03 Cardiac Enzymes 05/11/22 05/11/22 Range/Units 17:03 17:03 AST 35 (14-36) U/L Troponin I 0.015 (0.000-0.034) ng/mL Coagulation 05/11/22 Range/Units 17:03 PT 17.7 H (9.0-12.0) sec APTT 27.9 (22.0-30.0) sec CBC 05/11/22 Range/Units 17:03 WBC 11.7 H (3.8-10.6) k/uL RBC 5.21 (3.80-5.40) m/uL Hgb 16.6 H (11.4-16.0) gm/dL Hct 49.8 H (34.0-46.0) % Plt Count 201 (150-450) k/uL Comprehensive Metabolic Panel 05/11/22 Range/Units 17:03 Sodium 140 (137-145) mmol/L Potassium 5.1 (3.5-5.1) mmol/L Chloride 103 (98-107) mmol/L Carbon Dioxide 23 (22-30) mmol/L BUN 40 H (7-17) mg/dL Creatinine 1.51 H (0.52-1.04) mg/dL Glucose 194 H (74-99) mg/dL Calcium 9.2 (8.4-10.2) mg/dL AST 35 (14-36) U/L ALT 27 (4-34) U/L Alkaline Phosphatase 96 (38-126) U/L Total Protein 7.5 (6.3-8.2) g/dL Albumin 4.4 (3.5-5.0) g/dL Current Medications Generic Name Dose Route Start Last Admin Trade Name Freq PRN Reason Stop Dose Admin Acetaminophen 650 mg 05/11/22 18:25 Acetaminophen Tab 325 Mg Tab PO Q6HR PRN Mild Pain or Fever > 100.5 Albuterol Sulfate 2.5 mg 05/11/22 20:00 05/12/22 09:06 Albuterol Nebulized 2.5 Mg/3 Ml INHALATION 2.5 mg RT-QID VITO Administration Atorvastatin Calcium 10 mg 05/12/22 21:00 Atorvastatin 10 Mg Tab PO HS VITO Furosemide 40 mg 05/11/22 21:00 05/12/22 09:18 Furosemide 10 Mg/Ml 4 Ml Vial IV 40 mg Q12HR VITO Administration Glipizide 7.5 mg 05/11/22 22:15 05/12/22 09:19 Glipizide 2.5 Mg Tab PO 7.5 mg BID VITO Administration Ipratropium Mcintyre 0.5 mg 05/11/22 20:00 05/12/22 09:06 Ipratropium 0.5 Mg/2.5 Ml Nebu INHALATION 0.5 mg RT-QID VITO Administration Levothyroxine Sodium 25 mcg 05/12/22 06:30 05/12/22 06:18 Levothyroxine 25 Mcg Tab PO 25 mcg DAILY@0630 VITO Administration Midodrine 10 mg 05/12/22 12:30 Midodrine 5 Mg Tab PO TID-W/MEALS VITO Multivitamins 1 each 05/13/22 09:00 Multivitamins, Thera 1 Each Tab PO DAILY VITO Naloxone HCl 0.2 mg 05/11/22 18:25 Naloxone 0.4 Mg/Ml 1 Ml Vial IV Q2M PRN Opioid Reversal Sacubitril/Valsartan 0.5 each 05/11/22 22:15 05/12/22 09:19 Sacubitril/Valsartan 24 Mg-26 Mg Tablet PO 0.5 each BID VITO Administration Intake and Output 05/11/22 05/12/22 05/12/22 22:59 06:59 14:59 Output Total 200 Balance -200 Output: Urine 200 Other: Voiding Method Bedside Commode Bedside Commode Weight 61.235 kg 62.6 kg 05/11/22 17:03 05/11/22 17:03
[2022-05-12 10:59] LABS: INR 1.6 (<1.2); Prothrombin Time 15.8 sec (9.0-12.0)
--- NOTE | 2022-05-12 11:10 | P.HPIM ---
History of Present Illness Pleasant 87-year-old female came in with complaints of shortness of breath orthopnea or paroxysmal nocturnal dyspnea found have bilateral pleural effusion. Patient has moderate pleural effusion on the right side patient had thoracen tesis in the past. Patient uses 40 mg a of oral Lasix at home along with Aldactone and Entresto. Patient is found to be in congestive heart failure with highly [place] 9090 patient also had lactic acidosis which actually improved with the diuretics patient was started on 40 mg of IV Lasix. Patient diuresed well. Patient does have history of congestive heart failure with EF of around 20-25% mild aortic and mild tricuspid regurgitation. Patient had nonischemic cardiomyopathy with normal cardiac catheterization and normal coronaries in 2007. Patient was in respiratory failure requiring BiPAP presently on 4 L of oxygen was used to dysfunction at home. Patient was also complaining of cough with clear sputum production REVIEW OF SYSTEMS: CONSTITUTIONAL: No fever, no malaise, no fatigue. HEENT: No recent visual problems or hearing problems. Denied any sore throat. CARDIOVASCULAR: No chest pain, no palpitations, no syncope. PULMONARY: no hemoptysis. GASTROINTESTINAL: No diarrhea, no nausea, no vomiting, no abdominal pain. NEUROLOGICAL: No headaches, no weakness, no numbness. HEMATOLOGICAL: Denies any bleeding or petechiae. GENITOURINARY: Denies any burning micturition, frequency, or urgency. MUSCULOSKELETAL/RHEUMATOLOGICAL: Denies any joint pain, swelling, or any muscle pain. ENDOCRINE: Denies any polyuria or polydipsia. The rest of the 14-point review of systems is negative. PHYSICAL EXAMINATION: GENERAL: The patient is alert and oriented x3, not in any acute distress. Well developed, well nourished. HEENT: Pupils are round and equally reacting to light. EOMI. No scleral icterus. No conjunctival pallor. Normocephalic, atraumatic. No pharyngeal erythema. No thyromegaly. CARDIOVASCULAR: S1 and S2 present. No rubs, or gallops. Patient does have JVD PULMONARY: Chest is clear to auscultation, no wheezing or crackles. ABDOMEN: Soft, nontender, nondistended, normoactive bowel sounds. No palpable organomegaly. MUSCULOSKELETAL: No joint swelling or deformity. EXTREMITIES: No cyanosis, clubbing, or pedal edema. NEUROLOGICAL: Gross neurological examination did not reveal any focal deficits. SKIN: No rashes. Assessment and plan -Congestive heart failure chronic systolic dysfunction with acute exacerbation patient will be continued on IV Lasix monitor is and os. -Acute on chronic hypoxic respiratory failure secondary to CHF exacerbation -Nonischemic cardiomyopathy, patient has a biventricular AICD -Chronic kidney disease stage III with baseline creatinine of around 1.5 present creatinine is 1.5 -Hypertension -Hyperlipidemia -Type II Diabetes mellitus -Chronic atrial fibrillation presently rate controlled on Coumadin. Patient INR is 1.9, pharmacy will dose Coumadin DVT prophylaxis: On Coumadin Past Medical History Past Medical History: Atrial Fibrillation, Cancer, Heart Failure, Diabetes Mellitus, Hyperlipidemia, Osteoarthritis (OA), Skin Disorder, Vascular Disorder Additional Past Medical History / Comment(s): basal cell skin cancer, rash on face, History of Any Multi-Drug Resistant Organisms: None Reported Past Surgical History: AICD, Appendectomy, Bladder Surgery, Bowel Resection, Cholecystectomy, Heart Catheterization, Hysterectomy, Tonsillectomy, Tubal Ligation Additional Past Surgical History / Comment(s): venogram/fluoroscopy, neema cataracts, Past Anesthesia/Blood Transfusion Reactions: No Reported Reaction Type of Cardiac Device: AICD Device Placement Date:: 2007 Past Psychological History: No Psychological Hx Reported Additional Psychological History / Comment(s): Pt resides with her spouse and sometimes their adult son stays with them. She has [facility] palliative care. She has home oxygen which she wears at HS and prn during daytime. She has a glucometer, walker. Spouse drives, does housework. Smoking Status: Never smoker Past Alcohol Use History: None Reported Past Drug Use History: None Reported - Past Family History Father Family Medical History: Cancer Mother Family Medical History: Cancer Sister(s) Family Medical History: Cancer, Deep Vein Thrombosis (DVT) Additional Family Medical History / Comment(s): skin cancer Brother(s) History Unknown: Yes Family Medical History: Cancer Additional Family Medical History / Comment(s): skin cancer Medications and Allergies Home Medications Medication Instructions Recorded Confirmed Type Simvastatin [Zocor] 20 mg PO HS 10/22/15 05/11/22 History Levothyroxine Sodium [Synthroid] 25 mcg PO AC-BRKFST 03/30/18 05/11/22 History Warfarin [Coumadin] 1.5 mg PO MOTUWETHFRSA@1700 03/30/18 05/11/22 History Furosemide [Lasix] 40 mg PO DAILY 05/21/21 05/11/22 History Midodrine HCl [ProAmatine] 10 mg PO TID-W/MEALS 06/22/21 05/11/22 History Loperamide HCl [Imodium A-D] 1 mg PO BID 03/10/22 05/11/22 History Sacubitril/Valsartan [Entresto 24 0.5 tab PO BID 03/10/22 05/11/22 History mg-26 mg Tablet] Spironolactone [Aldactone] 12.5 mg PO DAILY 03/10/22 05/11/22 History glipiZIDE 7.5 mg PO BID 03/10/22 05/11/22 History Multivitamins, Thera [Multivitamin 1 tab PO DAILY 04/24/22 05/11/22 History (formulary)] Warfarin [Coumadin] 2 mg PO CALVIN@1700 #5 tab 04/27/22 05/11/22 Rx Allergies Allergy/AdvReac Type Severity Reaction Status Date / Time quinidine Allergy Rash/Hives Verified 05/11/22 17:44 CLEAR PLASTIC TAPE Allergy Rash/Hives Uncoded 05/11/22 17:44 Physical Exam Vitals: Vital Signs Temp Pulse Pulse Resp BP BP Pulse Ox 05/12/22 09:26 86 05/12/22 09:11 80 96 05/12/22 08:00 97.3 F L 80 16 96/56 95 05/12/22 04:03 05/12/22 04:00 97.9 F 72 22 127/67 98 05/12/22 02:11 05/11/22 23:57 97.8 F 82 18 119/72 98 05/11/22 22:25 98.1 F 78 18 139/72 96 05/11/22 21:31 84 05/11/22 21:06 80 05/11/22 20:07 87 20 97 05/11/22 19:56 05/11/22 18:34 80 20 124/70 97 05/11/22 18:06 80 05/11/22 17:49 80 20 128/75 98 05/11/22 17:47 80 05/11/22 17:09 30 H 05/11/22 17:03 05/11/22 16:55 97.0 F L 80 30 H 160/96 99 FiO2 05/12/22 09:26 05/12/22 09:11 05/12/22 08:00 05/12/22 04:03 100 05/12/22 04:00 05/12/22 02:11 100 05/11/22 23:57 05/11/22 22:25 05/11/22 21:31 05/11/22 21:06 05/11/22 20:07 05/11/22 19:56 100 05/11/22 18:34 05/11/22 18:06 05/11/22 17:49 05/11/22 17:47 05/11/22 17:09 05/11/22 17:03 100 05/11/22 16:55 Intake and Output 05/11/22 05/12/22 05/12/22 22:59 06:59 14:59 Output Total 200 Balance -200 Output: Urine 200 Other: Voiding Method Bedside Commode Bedside Commode Bedside Commode Weight 61.235 kg 62.6 kg Results CBC & Chem 7: 05/11/22 17:03 05/11/22 17:03 Labs: Abnormal Lab Results - Last 24 Hours (Table) 05/11/22 05/11/22 05/11/22 Range/Units 17:03 17:03 17:03 WBC 11.7 H (3.8-10.6) k/uL Hgb 16.6 H (11.4-16.0) gm/dL Hct 49.8 H (34.0-46.0) % PT 17.7 H (9.0-12.0) sec INR 1.8 H (<1.2) BUN 40 H (7-17) mg/dL Creatinine 1.51 H (0.52-1.04) mg/dL Glucose 194 H (74-99) mg/dL POC Glucose (mg/dL) (70-110) mg/dL Plasma Lactic Acid Alex (0.7-2.0) mmol/L 05/11/22 05/12/22 05/12/22 Range/Units 17:03 06:06 10:24 WBC (3.8-10.6) k/uL Hgb (11.4-16.0) gm/dL Hct (34.0-46.0) % PT 15.8 H (9.0-12.0) sec INR 1.6 H (<1.2) BUN (7-17) mg/dL Creatinine (0.52-1.04) mg/dL Glucose (74-99) mg/dL POC Glucose (mg/dL) 238 H (70-110) mg/dL Plasma Lactic Acid Alex 2.7 H* (0.7-2.0) mmol/L Thrombosis Risk Factor Assmnt - Choose All That Apply Any of the Below Risk Factors Present?: No Other Risk Factors: Yes Each Risk Factor Represents 3 Points: Age 75 years or older Other congenital or acquired thrombophilia - If yes, enter type in comment: No Thrombosis Risk Factor Assessment Total Risk Factor Score: 3 Thrombosis Risk Factor Assessment Level: Moderate Risk
[2022-05-12 11:40] LABS: Glucose,Whole Blood 318 mg/dL (70-110)
[2022-05-12] MEDS: INSULIN ASPART (NovoLOG) 100 UNIT/ML VIAL SQ SCH ×3 (12:44→20:26)
[2022-05-12] MEDS: MIDODRINE 5 MG TAB PO SCH ×2 (12:44→17:46)
--- NOTE | 2022-05-12 13:30 | P.CNPUL ---
History of Present Illness Consult date: 05/12/22 Requesting physician: Sofiya Phillips Reason for consult: pleural effusion Chief complaint: shortness of breath History of present illness: this is an 87-year-old female quite familiar to SERVICE, we have seen this patient over and over 4 recurrent systolic congestive heart failure and recurr ent right-sided pleural effusion. Previous thoracentesis on this patient clearly revealed transudative fluid consistent with fluid of congestive heart failure,patient was here in the hospital about 2 weeks ago, and I saw this patient in consultation for pleural effusion, she eventually had thoracentesis done by Dr. samayoa patient was discharged home on her usual cardiac meds and diuretics, back here today with shortness of breath and worsening pulmonary edemaand relatively good sized pleural effusion, hence this consult was initiated.patient is known to have history of LV dysfunction previous biventricular AICD placement history of chronic atrial fibrillation chronic systolic heart failure underlying COPD Review of Systems Constitutional: Negative HEENT: Negative Cardiac: As noted in HPI Pulmonary: As noted in HPI GI: Negative Genitourinary: Negative Muscular skeletal: Negative Endocrine: Negative Hematologic: Negative Neurologic : Negative Psychiatric: Negative Skin: Negative Past Medical History Past Medical History: Atrial Fibrillation, Cancer, Heart Failure, Diabetes Mellitus, Hyperlipidemia, Osteoarthritis (OA), Skin Disorder, Vascular Disorder Additional Past Medical History / Comment(s): basal cell skin cancer, rash on face, History of Any Multi-Drug Resistant Organisms: None Reported Past Surgical History: AICD, Appendectomy, Bladder Surgery, Bowel Resection, Cholecystectomy, Heart Catheterization, Hysterectomy, Tonsillectomy, Tubal Ligation Additional Past Surgical History / Comment(s): venogram/fluoroscopy, neema cataracts, Past Anesthesia/Blood Transfusion Reactions: No Reported Reaction Type of Cardiac Device: AICD Device Placement Date:: 2007 Past Psychological History: No Psychological Hx Reported Additional Psychological History / Comment(s): Pt resides with her spouse and sometimes their adult son stays with them. She has [facility] palliative care. She has home oxygen which she wears at HS and prn during daytime. She has a glucometer, walker. Spouse drives, does housework. Smoking Status: Never smoker Past Alcohol Use History: None Reported Past Drug Use History: None Reported - Past Family History Father Family Medical History: Cancer Mother Family Medical History: Cancer Sister(s) Family Medical History: Cancer, Deep Vein Thrombosis (DVT) Additional Family Medical History / Comment(s): skin cancer Brother(s) History Unknown: Yes Family Medical History: Cancer Additional Family Medical History / Comment(s): skin cancer Medications and Allergies Home Medications Medication Instructions Recorded Confirmed Type Simvastatin [Zocor] 20 mg PO HS 10/22/15 05/11/22 History Levothyroxine Sodium [Synthroid] 25 mcg PO [id number] 03/30/18 05/11/22 History Warfarin [Coumadin] 1.5 mg PO MOTUWETHFRSA@1700 03/30/18 05/11/22 History Furosemide [Lasix] 40 mg PO DAILY 05/21/21 05/11/22 History Midodrine HCl [ProAmatine] 10 mg PO TID-W/MEALS 06/22/21 05/11/22 History Loperamide HCl [Imodium A-D] 1 mg PO BID 03/10/22 05/11/22 History Sacubitril/Valsartan [Entresto 24 0.5 tab PO BID 03/10/22 05/11/22 History mg-26 mg Tablet] Spironolactone [Aldactone] 12.5 mg PO DAILY 03/10/22 05/11/22 History glipiZIDE 7.5 mg PO BID 03/10/22 05/11/22 History Multivitamins, Thera [Multivitamin 1 tab PO DAILY 04/24/22 05/11/22 History (formulary)] Warfarin [Coumadin] 2 mg PO CALVIN@1700 #5 tab 04/27/22 05/11/22 Rx Allergies Allergy/AdvReac Type Severity Reaction Status Date / Time quinidine Allergy Rash/Hives Verified 05/11/22 17:44 CLEAR PLASTIC TAPE Allergy Rash/Hives Uncoded 05/11/22 17:44 Physical Exam Vitals: Vital Signs Temp Pulse Pulse Resp BP BP Pulse Ox 05/12/22 12:33 82 05/12/22 12:14 84 05/12/22 11:46 97.9 F 80 16 97/60 95 05/12/22 09:26 86 05/12/22 09:11 80 96 05/12/22 08:00 97.3 F L 80 16 96/56 95 05/12/22 04:03 05/12/22 04:00 97.9 F 72 22 127/67 98 05/12/22 02:11 05/11/22 23:57 97.8 F 82 18 119/72 98 05/11/22 22:25 98.1 F 78 18 139/72 96 05/11/22 21:31 84 05/11/22 21:06 80 05/11/22 20:07 87 20 97 05/11/22 19:56 05/11/22 18:34 80 20 124/70 97 05/11/22 18:06 80 05/11/22 17:49 80 20 128/75 98 05/11/22 17:47 80 05/11/22 17:09 30 H 05/11/22 17:03 05/11/22 16:55 97.0 F L 80 30 H 160/96 99 FiO2 05/12/22 12:33 05/12/22 12:14 05/12/22 11:46 05/12/22 09:26 05/12/22 09:11 05/12/22 08:00 05/12/22 04:03 100 05/12/22 04:00 05/12/22 02:11 100 05/11/22 23:57 05/11/22 22:25 05/11/22 21:31 05/11/22 21:06 05/11/22 20:07 05/11/22 19:56 100 05/11/22 18:34 05/11/22 18:06 05/11/22 17:49 05/11/22 17:47 05/11/22 17:09 05/11/22 17:03 100 05/11/22 16:55 Intake and Output 05/11/22 05/12/22 05/12/22 22:59 06:59 14:59 Intake Total 540 Output Total 200 Balance -200 540 Intake: Oral 540 Output: Urine 200 Other: Voiding Method Bedside Commode Bedside Commode Bedside Commode Weight 61.235 kg 62.6 kg Physical Exam: Revealed 86-year-old female in no distress, on 5 L nasal cannula and O2 saturation 97%, Head: Atraumatic, normocephalic HEENT:[Neck is supple.] [No neck masses.] [No thyromegaly.] Positive JVD. Chest: Symmetrical chest expansion, diminished breath sounds at the right base with dullness..] Cardiac Exam: Irregular irregular rhythm. [Normal S1 and S2, no S3 gallop, 3/6 systolic murmur throughout the precordium mostly at the left lower sternal border Abdomen: [Soft, nontender, no megaly, no rebound, no guarding, normal bowel sounds.] Extremities: [No clubbing, no edema, no cyanosis.] Neurological Exam: Alert oriented 3 focal deficit Psychiatric: Normal mood affect and normal mental status examination. Skin: No rashes [place] skeletal: No deformities and no limitation in range of motion Results - Laboratory Findings CBC and BMP: 05/11/22 17:03 05/11/22 17:03 PT/INR, D-dimer PT 15.8 sec (9.0-12.0) H 05/12/22 10:24 INR 1.6 (<1.2) H 05/12/22 10:24 Abnormal lab findings: Abnormal Labs 05/11/22 05/11/22 05/11/22 17:03 17:03 17:03 WBC 11.7 H Hgb 16.6 H Hct 49.8 H PT 17.7 H INR 1.8 H BUN 40 H Creatinine 1.51 H Glucose 194 H POC Glucose (mg/dL) Plasma Lactic Acid Alex 05/11/22 05/12/22 05/12/22 17:03 06:06 10:24 WBC Hgb Hct PT 15.8 H INR 1.6 H BUN Creatinine Glucose POC Glucose (mg/dL) 238 H Plasma Lactic Acid Alex 2.7 H* 05/12/22 11:38 WBC Hgb Hct PT INR BUN Creatinine Glucose POC Glucose (mg/dL) 318 H Plasma Lactic Acid Alex - Diagnostic Findings Chest x-ray: image reviewed (as noted in HPI) Assessment and Plan Assessment: Impression: Chronic systolic congestive heart failure, known to have ejection fraction of 20-25% and previous history of biventricular AICD placement. Bilateral pleural effusions consistent with congestive heart failure, no need for thoracentesis, continue medical treatment for now. Severe cardiomyopathy and LV dysfunction Chronic atrial fibrillation Severe mitral valve regurgitation Type 2 diabetes Questionable underlying COPD Degenerative joint disease History of basal cell carcinoma/skin. recommendation: Continue Lasix Resume home meds Strict I's and O's, and daily weights Follow-up chest x-ray in the next 2 days. Again no need for thoracentesis at this point, patient should improve with diuretics. Time with Patient: Less than 30
[2022-05-12 16:25] LABS: Glucose,Whole Blood 273 mg/dL (70-110)
[2022-05-12] MEDS ORDERED: WARFARIN 2 MG TAB PO ONE (18:00)
[2022-05-12 20:21] LABS: Glucose,Whole Blood 155 mg/dL (70-110)
[2022-05-12] MEDS: ATORVASTATIN 10 MG TAB PO SCH (20:26)
[2022-05-13 05:50] LABS: Glucose,Whole Blood 156 mg/dL (70-110)
[2022-05-13] MEDS: LEVOTHYROXINE 25 MCG TAB PO SCH (06:10)
[2022-05-13] MEDS: MIDODRINE 5 MG TAB PO SCH (06:11)
[2022-05-13] MEDS: INSULIN ASPART (NovoLOG) 100 UNIT/ML VIAL SQ SCH ×4 (06:11→21:41)
[2022-05-13] MEDS: MULTIVITAMINS, THERA 1 EACH TAB PO SCH (08:51)
[2022-05-13] MEDS: SACUBITRIL/VALSARTAN 24 MG-26 MG TABLET PO SCH (08:51)
[2022-05-13] MEDS: FUROSEMIDE 10 MG/ML 4 ML VIAL IV SCH ×2 (08:51→21:41)
[2022-05-13] MEDS: IPRATROPIUM 0.5 MG/2.5 ML NEBU INHALATION SCH ×4 (09:00→22:27)
[2022-05-13] MEDS: ALBUTEROL NEBULIZED 2.5 MG/3 ML INHALATION SCH ×4 (09:00→22:26)
[2022-05-13 10:55] LABS: INR 1.6 (<1.2)
--- NOTE | 2022-05-13 10:56 | P.PN ---
Subjective HISTORY OF PRESENT ILLNESS: This is a 87-year-old female with a past medical history significant for hypertension, hyperlipidemia, diabetes, congestive heart failure, valvular heart disease, biventricular AICD secondary to complete heart block, chronic kidney disease, pleural effusions with history of thoracentesis, and nonischemic cardiomyopathy. Patient follows in the office with Dr. Thakkar. We have been asked to see the patient in consultation for congestive heart failure. Patient examined at the bedside. Son is at the bedside and providing additional history. Patient states she has been feeling short of breath for the past 2-3 days. She denies any chest pain or pressure. Patient has been compliant with her medications. She reports following a low-sodium diet. Patient was found to be in acute congestive heart failure and was started on IV Lasix. * EKG reveals paced rhythm * Chest xray cardiomegaly, pulmonary vascular congestion and bilateral pleural effusions. * Laboratory data: WBC 11.7. Hemoglobin 16.6. Platelet count 201. INR 1.8. Sodium 140. Potassium 5.1. BUN 40. Creatinine 1.51. Lactic acid 2.7. Repeat 1.6. Troponin 0.015. ProBNP 9090. * Current home cardiac medications include Lasix 40 mg daily, Entresto 24-26mg 0.5 tab BID, Midodrine 10mg TID with meals, simvastatin 20 mg at night, warfarin 2 mg on Tuesday and 1.5 mg Tuesday and Tuesday. * Most recent echocardiogram obtained in June 2021 revealing ejection fraction 20-25%, moderate to severe MR, trace to mild aortic regurgitation, mild tricuspid regurgitation * Cardiac catheterization history: 2007 revealing normal coronary arteries 05/13/2022 Patient examined this morning at bedside. Patient denies chest pain or pressure. She reports improvement in her shortness of breath. She is currently receiving a breathing treatment at the time of examination. She remains on IV Lasix 40 mg every 12 hours. Creatinine from this morning is currently pending. PHYSICAL EXAM: VITAL SIGNS: Reviewed. GENERAL: Well-developed in no acute distress. HEENT: Head is normocephalic. Pupils are equal, round. Sclerae anicteric. Mucous membranes of the mouth are moist. Neck supple. No JVD or thyromegaly LUNGS: Respirations even and unlabored. Lungs diminished bilaterally, worse on the right HEART: Regular rate and rhythm. S1 and S2 heard. Systolic murmur noted ABDOMEN: Soft. Nondistended. Nontender. EXTREMITIES: Normal range of motion. No clubbing or cyanosis. Peripheral pulses intact. No lower extremity edema NEUROLOGIC: Awake and alert. Oriented x 3. ASSESSMENT: Shortness of breath Acute on chronic heart failure with reduced EF, EF 20-25% Recurrent bilateral pleural effusions with history of multiple thoracentesis in the past, most recently 04/27/2022 Nonischemic cardiomyopathy Normal coronary arteries, per cardiac catheterization in 2007 Chronic kidney disease Hypertension Hyperlipidemia Diabetes History of complete heart block History of biventricular AICD PLAN: Continue IV Lasix 40 mg every 12 hours. Await kidney function results from this morning Accurate I&O, daily weights, and monitoring of kidney function Continue Coumadin. Awaiting INR from this morning Continue additional cardiac medications Further recommendations pending patient's course Nurse practitioner note has been reviewed by physician. Signing provider agrees with the documented findings, assessment, and plan of care. Objective - Vital Signs Vital signs: Vital Signs Temp 97.7 F 05/13/22 08:00 Pulse 80 05/13/22 09:20 Resp 16 05/13/22 08:00 BP 98/56 05/13/22 08:00 Pulse Ox 96 05/13/22 09:03 FiO2 100 05/12/22 04:03 Intake & Output 05/12/22 05/13/22 05/13/22 18:59 06:59 18:59 Intake Total 1690 118 Balance 1690 118 Weight 62.6 kg Intake: Oral 1690 118 Other: Voiding Method Bedside Commode Bedside Commode - Labs CBC & Chem 7: 05/11/22 17:03 05/11/22 17:03 Labs: Abnormal Lab Results - Last 24 Hours (Table) 05/12/22 05/12/22 05/12/22 Range/Units 10:24 11:38 16:23 PT 15.8 H (9.0-12.0) sec INR 1.6 H (<1.2) POC Glucose (mg/dL) 318 H 273 H (70-110) mg/dL 05/12/22 05/13/22 Range/Units 20:20 05:49 PT (9.0-12.0) sec INR (<1.2) POC Glucose (mg/dL) 155 H 156 H (70-110) mg/dL
[2022-05-13 11:00] LABS: Calcium 9.1 mg/dL (8.4-10.2); Magnesium 2.4 mg/dL (1.6-2.3)
[2022-05-13 11:21] LABS: Glucose,Whole Blood 151 mg/dL (70-110)
[2022-05-13 16:11] LABS: Glucose,Whole Blood 160 mg/dL (70-110)
[2022-05-13] MEDS ORDERED: WARFARIN 2 MG TAB PO ONE (18:00)
[2022-05-13 20:49] LABS: Glucose,Whole Blood 154 mg/dL (70-110)
[2022-05-13] MEDS: ATORVASTATIN 10 MG TAB PO SCH (21:41)
--- NOTE | 2022-05-13 21:53 | P.PN ---
Subjective Progress Note Date: 05/13/22 Pleasant 87-year-old female came in with complaints of shortness of breath orthopnea or paroxysmal nocturnal dyspnea found have bilateral pleural effusion. Patient has moderate pleural effusion on the right side patient had thoracentesis in the past. Patient uses 40 mg a of oral Lasix at home along wi th Aldactone and Entresto. Patient is found to be in congestive heart failure with highly elevated BNP of 9090 patient also had lactic acidosis which actually improved with the diuretics patient was started on 40 mg of IV Lasix. Patient diuresed well. Patient does have history of congestive heart failure with EF of around 20-25% mild aortic and mild tricuspid regurgitation. Patient had nonisch emic cardiomyopathy with normal cardiac catheterization and normal coronaries in 2007. Patient was in respiratory failure requiring BiPAP presently on 4 L of oxygen was used to dysfunction at home. Patient was also complaining of cough with clear sputum production 05/13/2022 Patient is seen and evaluated in follow-up continue to report some shortness of breath and being closely monitored with cardiology. Patient is continued on IV Lasix and cardiology recommending continuing for an additional 24 hours. Patient is having some hypotension and feels more lethargic today and will consider holding entresto for now until blood pressure improves. Pulmonary following as well with no plans for thoracentesis at this time recommending diuresis. Patient is currently afebrile with no reports of nausea or vomiting noted and denies chest pain or worsening shortness of breath. Will follow-up wi repeat labs as well. Review of systems: Constitutional: reports of fatigue today, no fever, or chills Cardiovascular: No reports of chest pain or palpitations Respiratory: reports of shortness of breath with exertion and slight cough GI: No reports of nausea, vomiting, or diarrhea : No reports of dysuria or retention Neurovascular: No reports of weakness or numbness All medications have been reviewed PHYSICAL EXAMINATION: GENERAL: The patient is alert and oriented x3, not in any acute distress. Well developed, well nourished. HEENT: Pupils are round and equally reacting to light. EOMI. No scleral icterus. No conjunctival pallor. Normocephalic, atraumatic. No pharyngeal erythema. No thyromegaly. CARD IOVASCULAR: S1 and S2 present. No rubs, or gallops. Patient does have JVD PULMONARY: Chest is clear to auscultation, no wheezing or crackles. ABDOMEN: Soft, nontender, nondistended, normoactive bowel sounds. No palpable organomegaly. MUSCULOSKELETAL: No joint swelling or deformity. EXTREMITIES: No cyanosis, clubbing, or pedal edema. NEUROLOGICAL: Gross neurological examination did not reveal any focal deficits. SKIN: No rashes. Assessment: -Congestive heart failure chronic systolic dysfunction with acute exacerbation -Acute on chronic hypoxic respiratory failure secondary to CHF exacerbation -Nonischemic cardiomyopathy, patient has a biventricular AICD -Chronic kidney disease stage III with baseline creatinine of around 1.5 -Hypertension -Hyperlipidemia -Type II Diabetes mellitus -Chronic atrial fibrillation presently rate controlled on Coumadin. Patient INR is 1.9, pharmacy will dose Coumadin -DVT prophylaxis: On Coumadin -Full code Plan: Patient being closely monitored with pulmonary and cardiology following. No plans for thoracentesis recommending to continue with IV diuresis for another 24 hours and follow-up labs Encouraged increased activity as tolerated Will hold entresto for now as blood pressure is on the lower side and also receiving IV Lasix with cardiology recommending another 24 hours Recommend follow-up labs in the a.m. We'll discuss with etiology about discharge planning Possible discharge in the next 24 hours The impression and plan of care has been dictated by Erin Reynaga, Nurse Practitioner as directed. Dr. Alan MD I have performed a history and examination and MDM of this patient, discussed th e same with the dictator, and agree with the dictator's assessment and plan as written ,documented as a scribe. Based on total visit time, I have performed more than 50% of the visit. Objective - Vital Signs Vital signs: Vital Signs Temp 97.7 F 05/13/22 08:00 Pulse 80 05/13/22 09:20 Resp 16 05/13/22 08:00 BP 98/56 05/13/22 08:00 Pulse Ox 96 05/13/22 09:03 FiO2 100 05/12/22 04:03 Intake & Output 05/12/22 05/13/22 05/13/22 18:59 06:59 18:59 Intake Total 1690 118 Balance 1690 118 Weight 62.6 kg Intake: Oral 1690 118 Other: Voiding Method Bedside Commode Bedside Commode - Labs CBC & Chem 7: 05/11/22 17:03 05/13/22 10:08 Labs: Abnormal Lab Results - Last 24 Hours (Table) 05/12/22 05/12/22 05/12/22 Range/Units 10:24 11:38 16:23 PT 15.8 H (9.0-12.0) sec INR 1.6 H (<1.2) POC Glucose (mg/dL) 318 H 273 H (70-110) mg/dL 05/12/22 05/13/22 Range/Units 20:20 05:49 PT (9.0-12.0) sec INR (<1.2) POC Glucose (mg/dL) 155 H 156 H (70-110) mg/dL
[2022-05-14 06:01] LABS: Glucose,Whole Blood 129 mg/dL (70-110)
[2022-05-14] MEDS: INSULIN ASPART (NovoLOG) 100 UNIT/ML VIAL SQ SCH ×2 (06:18→12:55)
[2022-05-14] MEDS: LEVOTHYROXINE 25 MCG TAB PO SCH (06:45)
[2022-05-14 08:43] LABS: INR 1.6 (<1.2); Prothrombin Time 16.3 sec (9.0-12.0)
[2022-05-14 08:52] VITALS: RESP 18; TEMP 97.3
[2022-05-14] MEDS: MULTIVITAMINS, THERA 1 EACH TAB PO SCH (08:53)
[2022-05-14] MEDS: FUROSEMIDE 10 MG/ML 4 ML VIAL IV SCH (08:53)
[2022-05-14] MEDS: ALBUTEROL NEBULIZED 2.5 MG/3 ML INHALATION SCH ×2 (08:55→11:55)
[2022-05-14] MEDS: IPRATROPIUM 0.5 MG/2.5 ML NEBU INHALATION SCH ×2 (08:55→11:55)
[2022-05-14 09:12] LABS: Calcium 9.3 mg/dL (8.4-10.2)
[2022-05-14 11:28] LABS: Glucose,Whole Blood 175 mg/dL (70-110)
--- NOTE | 2022-05-14 12:08 | P.EN ---
Patient will be a nebulizer on discharge to manage her COPD and will be continued on DuoNeb treatments 4 times daily and as needed
--- NOTE | 2022-05-14 12:31 | P.PN ---
Subjective Progress Note Date: 05/14/22 HISTORY OF PRESENT ILLNESS: This is a 87-year-old female with a past medical history significant for hypertension, hyperlipidemia, diabetes, congestive heart failure, valvular heart disease, biventricular AICD secondary to complete heart block, chronic kidney disease, pleural effusions with history of thoracentesis, and nonischemic cardiomyopathy. Patient follows in the office with Dr. Thakkar. We have been asked to see the patient in consultation for congestive heart failure. Patient examined at the bedside. Son is at the bedside and providing additional history. Patient states she has been feeling short of breath for the past 2-3 days. She denies any chest pain or pressure. Patient has been compliant with her medications. She reports following a low-sodium diet. Patient was found to be in acute congestive heart failure and was started on IV Lasix. * EKG reveals paced rhythm * Chest xray cardiomegaly, pulmonary vascular congestion and bilateral pleural effusions. * Laboratory data: WBC 11.7. Hemoglobin 16.6. Platelet count 201. INR 1.8. Sodium 140. Potassium 5.1. BUN 40. Creatinine 1.51. Lactic acid 2.7. Repeat 1.6. Troponin 0.015. ProBNP 9090. * Current home cardiac medications include Lasix 40 mg daily, Entresto 24-26mg 0.5 tab BID, Midodrine 10mg TID with meals, simvastatin 20 mg at night, warfarin 2 mg on Tuesday and 1.5 mg Tuesday and Tuesday. * Most recent echocardiogram obtained in June 2021 revealing ejection fraction 20-25%, moderate to severe MR, trace to mild aortic regurgitation, mild tricuspid regurgitation * Cardiac catheterization history: 2007 revealing normal coronary arteries 05/13/2022 Patient examined this morning at bedside. Patient denies chest pain or pressure. She reports improvement in her shortness of breath. She is currently receiving a breathing treatment at the time of examination. She remains on IV Lasix 40 mg every 12 hours. Creatinine from this morning is currently pending. 05/14/2022 Patient examined this point. She is sitting up in the chair. Patient denies chest pain or pressure. She reports improvement in her shortness of breath. She remains on IV Lasix. Creatinine today 1.67. INR remained subtherapeutic at 1.6. PHYSICAL EXAM: VITAL SIGNS: Reviewed. GENERAL: Well-developed in no acute distress. HEENT: Head is normocephalic. Pupils are equal, round. Sclerae anicteric. Mucous membranes of the mouth are moist. Neck supple. No JVD or thyromegaly LUNGS: Respirations even and unlabored. Lungs diminished bilaterally, worse on the right HEART: Regular rate and rhythm. S1 and S2 heard. Systolic murmur noted ABDOMEN: Soft. Nondistended. Nontender. EXTREMITIES: Normal range of motion. No clubbing or cyanosis. Peripheral pulses intact. No lower extremity edema NEUROLOGIC: Awake and alert. Oriented x 3. ASSESSMENT: Shortness of breath Acute on chronic heart failure with reduced EF, EF 20-25% Recurrent bilateral pleural effusions with history of multiple thoracentesis in the past, most recently 04/27/2022 Nonischemic cardiomyopathy Normal coronary arteries, per cardiac catheterization in 2007 Chronic kidney disease Hypertension Hyperlipidemia Diabetes History of complete heart block History of biventricular AICD PLAN: Continue current cardiac medications Entresto has been held secondary to hypotension and worsening renal function Upon discharge, increase patient's Lasix to 60 mg daily. Repeat BMP on an outpatient basis Due to patient's subtherapeutic INR, change warfarin regimen to 2 mg on Tuesday and and 1.5 mg Tuesday and Tuesday Patient to have INR checked at her follow-up visit with Dr. Thakkar Patient is stable for discharge home today from a cardiac standpoint Nurse practitioner note has been reviewed by physician. Signing provider agrees with the documented findings, assessment, and plan of care. Objective - Vital Signs Vital signs: Vital Signs Temp 97.3 F L 05/14/22 08:00 Pulse 90 05/14/22 12:09 Resp 18 05/14/22 08:00 BP 118/62 05/14/22 08:00 Pulse Ox 95 05/14/22 08:56 FiO2 100 05/12/22 04:03 Intake & Output 05/13/22 05/14/22 05/14/22 18:59 06:59 18:59 Intake Total 598 20 240 Output Total 600 Balance 598 20 -360 Weight 61.4 kg Intake: IV 20 Invasive Line 1 20 Oral 598 240 Output: Urine 600 Other: Voiding Method Toilet Bedside Commode - Labs CBC & Chem 7: 05/11/22 17:03 04/07/23 07:20 Labs: Abnormal Lab Results - Last 24 Hours (Table) 05/13/22 05/13/22 05/14/22 Range/Units 16:10 20:48 06:00 PT (9.0-12.0) sec INR (<1.2) Carbon Dioxide (22-30) mmol/L BUN (7-17) mg/dL Creatinine (0.52-1.04) mg/dL Glucose (74-99) mg/dL POC Glucose (mg/dL) 160 H 154 H 129 H (70-110) mg/dL 05/14/22 05/14/22 05/14/22 Range/Units 07:20 07:20 11:27 PT 16.3 H (9.0-12.0) sec INR 1.6 H (<1.2) Carbon Dioxide 34 H (22-30) mmol/L BUN 56 H (7-17) mg/dL Creatinine 1.67 H (0.52-1.04) mg/dL Glucose 128 H (74-99) mg/dL POC Glucose (mg/dL) 175 H (70-110) mg/dL
[2022-05-14 13:21] VITALS: BP 104/59; PULSE 80
[2022-05-14] MEDS ORDERED: WARFARIN 3 MG TAB PO ONE (18:00)
--- NOTE | 2022-05-15 19:26 | P.DS ---
Providers Date of admission: 05/11/22 18:26 Expected date of discharge: 05/14/22 Attending physician: Todd Jarrett Consults: 05/11/22 18:25 Consult Physician Routine Consulting Provider: Ximena Pat Consult Reason/Comments: CHF Do you want consulting provider notified?: Yes Primary care physician: Alberto Solomon Hospital Course: Final diagnosis -Congestive heart failure chronic systolic dysfunction with acute exacerbation -Acute on chronic hypoxic respiratory failure secondary to CHF exacerbation -Nonischemic cardiomyopathy, patient has a biventricular AICD -Chronic obstructive pulmonary disease, acute exacerbation -Chronic kidney disease stage III with baseline creatinine of around 1.5 -Hypertension -Hyperlipidemia -Type II Diabetes mellitus -Chronic atrial fibrillation presently rate controlled on Coumadin. -Subtherapeutic Coumadin levels -DVT prophylaxis: On Coumadin -Full code Discharge disposition Patient is being discharged in a stable condition with guarded prognosis to home. Patient will follow-up with Dr. Solomon in the outpatient setting upon discharge. Patient is to follow-up with pulmonary as well as cardiology in the outpatient setting as scheduled. Total time taken is greater than 35 minutes. Hospital course This is a 87-year-old female who was recently admitted with shortness of breath and CHF exacerbation with continued pleural effusions with pulmonary and cardiology following. Patient was diuresed with Lasix and will continue on current regimen as mentioned below per cardiology recommendations and close outpatient follow-up. Patient needs close outpatient follow-up with pulmonary and primary care provider as well. Patient will be continued on breathing treatments along with supplemental oxygen and recommend repeat labs in the next few days. Patient has been cleared by consultations for discharge today. Please refer to consultation notes for further HPI. Currently no reports of chest pain, shortness of breath, or palpitations. Patient is afebrile. No reports of nausea or vomiting and patient is tolerating diet. Patient will be discharged home today. Guarded prognosis. High risk for readmissions and patient has had multiple hospitalizations secondary to CHF and pleural effusions Physical exam: Gen: This is a 87-year-old female who is awake, alert and oriented 3, thin built, well-nourished HEENT: Head is atraumatic, normocephalic. Pupils equal, round. Sclerae is anicteric. NECK: Supple. No JVD. No lymphadenopathy. No thyromegaly. LUNGS: Diminished breath sounds bilaterally with some faint rhonchi noted. No intercostal retractions. HEART: S1, S2 are muffled ABDOMEN: Soft. Bowel sounds are present. No masses. No tenderness. EXTREMITIES: No pedal edema. No calf tenderness. NEUROLOGICAL: Patient is awake, alert and oriented x3. Cranial nerves 2 through 12 are grossly intact. Please refer to medication reconciliation sheet for a list of medications. The impression and plan of care has been dictated by Erin Reynaga, Nurse Practitioner as directed. Dr. Kolby MD I have performed a history and examination and MDM of this patient, discussed the same with the dictator, and agree with the dictator's assessment and plan as written ,documented as a scribe. Based on total visit time, I have performed more than 50% of the visit. Patient Condition at Discharge: Fair Plan - Discharge Summary Discharge Rx Participant: No New Discharge Prescriptions: New Furosemide [Lasix] 60 mg PO DAILY #90 tab Warfarin [Coumadin] 2 mg PO SUTUTH #180 tab Warfarin [Coumadin] 1.5 mg PO MOWEFRSA #180 dose Albuterol Nebulized [Ventolin Nebulized] 2.5 mg INHALATION RT-QID #120 ml Ipratropium Nebulized [Atrovent Nebulized 0.2 MG/ML] 0.5 mg INHALATION RT-QID #100 ml Continue Simvastatin [Zocor] 20 mg PO HS Levothyroxine Sodium [Synthroid] 25 mcg PO AC-BRKFST Midodrine HCl [ProAmatine] 10 mg PO TID-W/MEALS Loperamide HCl [Imodium A-D] 1 mg PO BID glipiZIDE 7.5 mg PO BID Multivitamins, Thera [Multivitamin (formulary)] 1 tab PO DAILY Discontinued Warfarin [Coumadin] 1.5 mg PO MOTUWETHFRSA@1700 Furosemide [Lasix] 40 mg PO DAILY Spironolactone [Aldactone] 12.5 mg PO DAILY Sacubitril/Valsartan [Entresto 24 mg-26 mg Tablet] 0.5 tab PO BID Warfarin [Coumadin] 2 mg PO CALVIN@1700 #5 tab Discharge Medication List Simvastatin [Zocor] 20 mg PO HS 10/22/15 [History] Levothyroxine Sodium [Synthroid] 25 mcg PO AC-BRKFST 03/30/18 [History] Midodrine HCl [ProAmatine] 10 mg PO TID-W/MEALS 06/22/21 [History] Loperamide HCl [Imodium A-D] 1 mg PO BID 03/10/22 [History] glipiZIDE 7.5 mg PO BID 03/10/22 [History] Multivitamins, Thera [Multivitamin (formulary)] 1 tab PO DAILY 04/24/22 [History] Albuterol Nebulized [Ventolin Nebulized] 2.5 mg INHALATION RT-QID #120 ml 05/14/22 [Rx] Furosemide [Lasix] 60 mg PO DAILY #90 tab 05/14/22 [Rx] Ipratropium Nebulized [Atrovent Nebulized 0.2 MG/ML] 0.5 mg INHALATION RT-QID #100 ml 05/14/22 [Rx] Warfarin [Coumadin] 1.5 mg PO MOWEFRSA #180 dose 05/14/22 [Rx] Warfarin [Coumadin] 2 mg PO SUTUTH #180 tab 05/14/22 [Rx] Follow up Appointment(s)/Referral(s): Alberto Solomon MD [Primary Care Provider] - 05/19/22 11:00 am (Your appointment is with Liana on TuesdayMay 19, at 11:00 am.) Duc Hernadez MD [STAFF PHYSICIAN] - 05/21/22 3:45 pm (May 21 at 3:45 pm.) Tabby Rivera MD [STAFF PHYSICIAN] - 07/02/22 9:30 am (Follow-up with Dr. Harry July 02 at 9:30 am.) Ambulatory/Diagnostic Orders: Basic Metabolic Panel [LAB.AMB] Time Frame: 3 Days, Location: None Selected Patient Instructions/Handouts: Heart Failure (DC) Activity/Diet/Wound Care/Special Instructions: Activity Limited until follow-up Follow-up with primary care provider on discharge follow pulmonary outpatient in 1-2 weeks Follow-up cardiology outpatient in 1-2 weeks Continue taking medications as prescribed Follow-up repeat labs in the next 2-3 days Discharge Disposition: HOME SELF-CARE
== END 2022-05-14 15:02 | disposition home health service (06) | DRG 291 ==
LOC: EC 16:52 → 3SCARD 18:26
PROVIDERS: ADMIT Hospitalist; ATTEND Hospitalist
PROC: 5A09357 Assistance with Respiratory Ventilation, Less than 24 Consecutive Hours, Continuous Positive Airway Pressure (ICD-10-PCS; principal; 2022-05-11)
DX: I13.0 Hypertensive heart and chronic kidney disease with heart failure and stage 1 through stage 4 chronic kidney disease, or unspecified chronic kidney disease (principal); I50.23 Acute on chronic systolic (congestive) heart failure; J96.21 Acute and chronic respiratory failure with hypoxia; I48.20 Chronic atrial fibrillation, unspecified; E87.20 Acidosis, unspecified; J44.1 Chronic obstructive pulmonary disease with (acute) exacerbation; I95.9 Hypotension, unspecified; I42.8 Other cardiomyopathies; E11.51 Type 2 diabetes mellitus with diabetic peripheral angiopathy without gangrene; E11.22 Type 2 diabetes mellitus with diabetic chronic kidney disease; N18.30 Chronic kidney disease, stage 3 unspecified; Z51.5 Encounter for palliative care; E78.5 Hyperlipidemia, unspecified; I08.3 Combined rheumatic disorders of mitral, aortic and tricuspid valves; M19.90 Unspecified osteoarthritis, unspecified site; Z79.84 Long term (current) use of oral hypoglycemic drugs; Z79.890 Hormone replacement therapy; Z79.01 Long term (current) use of anticoagulants; Z79.899 Other long term (current) drug therapy; Z85.828 Personal history of other malignant neoplasm of skin; Z95.810 Presence of automatic (implantable) cardiac defibrillator; Z88.8 Allergy status to other drugs, medicaments and biological substances
CPT/HCPCS: 36415; 71045; 80048; 80053; 83605; 83735; 83880; 84484; 85025; 85610; 85730; 93005; 94640; 94660; 94760; 96374; 99291

== ENCOUNTER 2022-05-27 03:15 | Inpatient (IN) | payer MEDICARE, BC ==
--- NOTE | 2022-05-27 03:41 | ED ---
General Adult HPI - General Chief complaint: Shortness of Breath Stated complaint: SOB Time Seen by Provider: 05/27/22 03:19 Source: patient, RN notes reviewed, old records reviewed Mode of arrival: EMS Limitations: no limitations - History of Present Illness Initial comments: Patient is an 87-year-old female with past medical history remarkable for A. fib on Coumadin, CHF, diabetes with an AICD who presents emergency Department complaining of shortness of breath. States she has been doing well but awoke this evening complaining of shortness of breath. Has a chronic nonproductive cough. States she has been compliant with medications. Endorses chronic lower extremity swelling but they are at their typical size at this time. Denies any nausea, vomiting, abdominal pain. With the shortness of breath she felt heart palpitations but no chest pain. States she is not diaphoretic or lightheaded when the shortness of breath started. Typically wears 2 L nasal cannula at home. She does sleep on multiple pillows at night. Denies any worsening orthopnea. Denies any worsening progressive exertional dyspnea. Presents for further evaluation at this time. Denies any fevers, chills, sick contacts. - Related Data Home Medications Medication Instructions Recorded Confirmed Simvastatin [Zocor] 20 mg PO HS 10/22/15 05/27/22 Levothyroxine Sodium [Synthroid] 25 mcg PO AC-BRKFST 03/30/18 05/27/22 Midodrine HCl [ProAmatine] 10 mg PO TID-W/MEALS 06/22/21 05/27/22 Loperamide HCl [Imodium A-D] 1 mg PO BID 03/10/22 05/27/22 glipiZIDE 7.5 mg PO BID 03/10/22 05/27/22 Bumetanide [BUMEX] 2 mg PO DAILY 05/27/22 05/27/22 Previous Rx's Medication Instructions Recorded Albuterol Nebulized [Ventolin 2.5 mg INHALATION RT-QID #120 ml 05/14/22 Nebulized] Ipratropium Nebulized [Atrovent 0.5 mg INHALATION RT-QID #100 ml 05/14/22 Nebulized 0.2 MG/ML] Warfarin [Coumadin] 1.5 mg PO MOWEFRSA #180 dose 05/14/22 Warfarin [Coumadin] 2 mg PO SUTUTH #180 tab 05/14/22 Allergies Allergy/AdvReac Type Severity Reaction Status Date / Time quinidine Allergy Rash/Hives Verified 05/27/22 07:32 CLEAR PLASTIC TAPE Allergy Rash/Hives Uncoded 05/27/22 07:32 Review of Systems ROS Statement: Those systems with pertinent positive or pertinent negative responses have been documented in the HPI. Review of Systems: CONST: Denies fever EYES: Denies blurry vision ENT: Denies nasal congestion C/V: Denies Chest pain RESP: Endorses shortness of breath GI: Denies abdominal pain : Denies dysuria SKIN: Denies rash. MSK: Denies joint pain. NEURO: Denies headache ROS Other: All systems not noted in ROS Statement are negative. Past Medical History Past Medical History: Atrial Fibrillation, Cancer, Heart Failure, Diabetes Mellitus, Hyperlipidemia, Osteoarthritis (OA), Skin Disorder, Vascular Disorder Additional Past Medical History / Comment(s): basal cell skin cancer, rash on face, History of Any Multi-Drug Resistant Organisms: None Reported Past Surgical History: AICD, Appendectomy, Bladder Surgery, Bowel Resection, Cholecystectomy, Heart Catheterization, Hysterectomy, Tonsillectomy, Tubal Ligation Additional Past Surgical History / Comment(s): venogram/fluoroscopy, neema cataracts, Past Anesthesia/Blood Transfusion Reactions: No Reported Reaction Type of Cardiac Device: AICD Device Placement Date:: 2007 Past Psychological History: No Psychological Hx Reported Smoking Status: Never smoker Past Alcohol Use History: None Reported Past Drug Use History: None Reported - Past Family History Father Family Medical History: Cancer Mother Family Medical History: Cancer Sister(s) Family Medical History: Cancer, Deep Vein Thrombosis (DVT) Additional Family Medical History / Comment(s): skin cancer Brother(s) History Unknown: Yes Family Medical History: Cancer Additional Family Medical History / Comment(s): skin cancer General Exam - General Exam Comments Initial Comments: General: Appears in no acute distress. HEAD: Normal with no signs of head trauma. EYES: PERRLA, EOMI, conjunctiva normal, no discharge. ENT: Hearing grossly intact, normal oropharynx. RESPIRATORY: Clear breath sounds bilaterally. No wheezes, rales, or rhonchi. No hypoxia on her baseline 2 L nasal cannula. No increased work of breathing. C/V: Regular rate and rhythm. S1 and S2 auscultated, mild symmetrical pitting edema of the lower extremities., peripheral pulses 2+ and intact throughout ABD: Abd is soft, nontender, nondistended EXT: Normal range of motion, no obvious deformity SKIN: No rashes or lesions observed on exposed skin. NEURO: Alert and oriented 4. Limitations: no limitations Course Vital Signs 05/27/22 05/27/22 05/27/22 03:20 03:44 05:07 Pulse Rate 80 80 Respiratory 16 16 17 Rate Blood Pressure 128/68 103/62 O2 Sat by Pulse 96 95 Oximetry 05/27/22 06:00 Pulse Rate 80 Respiratory 16 Rate Blood Pressure 108/60 O2 Sat by Pulse 95 Oximetry Medical Decision Making - Medical Decision Making Was pt. sent in by a medical professional or institution ([facility], [facility], urgent care, hospital, or fdc...) When possible be specific @ -No Did you speak to anyone other than the patient for history (EMS, parent, family, police, friend...)? What history was obtained from this source @ -No Did you review nursing and triage notes (agree or disagree)? Why? @ -I reviewed and agree with nursing and triage notes Were old charts reviewed (outside hosp., previous admission, EMS record, old EKG, old radiological studies, urgent care reports/EKG's, fdc records)? Report findings @ -Charts reviewed from visit from early May 2022. Differential Diagnosis (chest pain, altered mental status, abdominal pain women, abdominal pain men, vaginal bleeding, weakness, fever, dyspnea, syncope, headache, dizziness, GI bleed, back pain, seizure, CVA, palpatations, mental health, musculoskeletal)? @ -Differential Dyspnea: Coronary syndrome, arrhythmia, tamponade, asthma, COPD, pulmonary embolism, pneumonia, pneumothorax, pulmonary effusion, anaphylaxis, diabetic ketoacidosis, flailed chest, pulmonary contusion, diaphragmatic rupture, anemia, neuromuscula r, this is not meant to be an all-inclusive list. EKG interpreted by me (3pts min.). @ -As above X-rays interpreted by me (1pt min.). @ -Chest x-ray shows recurrent right sided pleural effusion as well as bilateral pulmonary vascular congestion concerning for congestive heart failure. This appears similar to prior chest x-ray. CT interpreted by me (1pt min.). @ -None done U/S interpreted by me (1pt. min.). @ -None done What testing was considered but not performed or refused? (CT, X-rays, U/S, labs)? Why? @ -None What meds were considered but not given or refused? Why? @ -None Did you discuss the management of the patient with other professionals (professionals i.e. , PA, S[employer]ER, lab, RT, psych nurse, social services coordinator, auger press operator, teacher, command center officer, senior case manager)? Give summary @ -Discussed with Dr. kirk who accepted the admission. Was smoking cessation discussed for >3mins.? @ -No Was critical care preformed (if so, how long)? @ -No Were there social determinants of health that impacted care today? How? (Homelessness, low income, unemployed, alcoholism, drug addiction, transportation, low edu. Level, literacy, decrease access to med. care, longterm, rehab)? @ -No Was there de-escalation of care discussed even if they declined (Discuss DNR or withdrawal of care, Hospice)? DNR status @ -No What co-morbidities impacted this encounter? (DM, HTN, Smoking, COPD, CAD, Cancer, CVA, ARF, Chemo, Hep., AIDS, mental health diagnosis, sleep apnea, morbid obesity)? @ -CHF, A. 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 Hospital course, mention meds given and route, prescriptions, significant lab abnormalities, going to OR and other pertinent info. @ -Based on the patient's presentation and physical exam, I'm concerned for heart or pulmonary etiology for her current symptoms. We'll obtain cardiopulmonary labs, chest x-ray, EKG. Vital signs are currently within acceptable limits and she is resting comfortably. She was in agreement with this plan. She is placed on her normal home liters nasal cannula oxygen. EKG shows a ventricular paced rhythm but no acute changes.Chest X-ray shows a right-sided pleural effusion as well as bilateral pulmonary vascular congestion concerning for CHF, however this does appear somewhat chronic. Labs are remarkable for supratherapeutic INR 3.9. Patient has elevated BUN/creatinine with a history of CK D and is at her baseline. Troponin is minimally elevated to 0.035. On reevaluation, to the patient's symptoms earlier as well as her minimally elevated troponin I did recommend observation admission. She was in agreement this plan. She'll be given an aspirin. We will start her on IV Lasix. Cardiology was consulted. I spoke with the admitting physician Dr. Kirk who accepted the admission. Patient's pleural effusion was not managed with a thoracentesis previously. I did discuss this with Dr. kirk and we both agreed to consult cardiology for now and he will add on pulmonology if needed. Symptoms appear to Be somewhat chronic but had clinical worsening this evening, with her significant chest x- ray findings we will observe the patient. Undiagnosed new problem with uncertain prognosis? @ -No Drug Therapy requiring intensive monitoring for toxicity (Heparin, Nitro, Insulin, Cardizem)? @ -No Were any procedures done? @ -No Diagnosis/symptom? @ -CHF, pleural effusion, dyspnea Acute, or Chronic, or Acute on Chronic? @ -Acute on chronic Uncomplicated (without systemic symptoms) or Complicated (systemic symptoms)? @ -Complicated Side effects of treatment? @ -none Exacerbation, Progression, or Severe Exacerbation] @ -Exacerbation Poses a threat to life or bodily function? @ -yes, if untreated Diagnosis/symptom? @ -Supratherapeutic INR Acute, or Chronic, or Acute on Chronic? @ -Acute Uncomplicated (without systemic symptoms) or Complicated (systemic symptoms)? @ -Uncomplicated Side effects of treatment? @ -none Exacerbation, Progression, or Severe Exacerbation] @ -no Poses a threat to life or bodily function? @ -no - Lab Data Result diagrams: 05/27/22 03:44 05/27/22 03:44 Lab Results 05/27/22 05/27/22 05/27/22 Range/Units 03:44 03:44 03:44 WBC 9.3 (3.8-10.6) k/uL RBC 4.64 (3.80-5.40) m/uL Hgb 14.3 (11.4-16.0) gm/dL Hct 43.6 (34.0-46.0) % MCV 94.0 (80.0-100.0) fL MCH 30.8 (25.0-35.0) pg MCHC 32.7 (31.0-37.0) g/dL RDW 13.4 (11.5-15.5) % Plt Count 153 (150-450) k/uL MPV 9.4 Neutrophils % 78 % Lymphocytes % 13 % Monocytes % 4 % Eosinophils % 4 % Basophils % 0 % Neutrophils # 7.3 (1.3-7.7) k/uL Lymphocytes # 1.2 (1.0-4.8) k/uL Monocytes # 0.4 (0-1.0) k/uL Eosinophils # 0.4 (0-0.7) k/uL Basophils # 0.0 (0-0.2) k/uL PT 38.5 H (9.0-12.0) sec INR 3.9 H (<1.2) APTT 35.3 H (22.0-30.0) sec Sodium 141 (137-145) mmol/L Potassium 3.7 (3.5-5.1) mmol/L Chloride 104 (98-107) mmol/L Carbon Dioxide 27 (22-30) mmol/L Anion Gap 10 mmol/L BUN 42 H (7-17) mg/dL Creatinine 1.43 H (0.52-1.04) mg/dL Est GFR (CKD-EPI)AfAm 38 (>60 ml/min/1.73 sqM) Est GFR (CKD-EPI)NonAf 33 (>60 ml/min/1.73 sqM) Glucose 214 H (74-99) mg/dL Calcium 8.8 (8.4-10.2) mg/dL Magnesium 2.0 (1.6-2.3) mg/dL Total Bilirubin 1.4 H (0.2-1.3) mg/dL AST 43 H (14-36) U/L ALT 30 (4-34) U/L Alkaline Phosphatase 102 (38-126) U/L Troponin I (0.000-0.034) ng/mL Total Protein 6.3 (6.3-8.2) g/dL Albumin 3.8 (3.5-5.0) g/dL Influenza Type A (PCR) (Not Detectd) Influenza Type B (PCR) (Not Detectd) RSV (PCR) (Not Detectd) SARS-CoV-2 (PCR) (Not Detectd) 05/27/22 05/27/22 Range/Units 03:44 03:44 WBC (3.8-10.6) k/uL RBC (3.80-5.40) m/uL Hgb (11.4-16.0) gm/dL Hct (34.0-46.0) % MCV (80.0-100.0) fL MCH (25.0-35.0) pg MCHC (31.0-37.0) g/dL RDW (11.5-15.5) % Plt Count (150-450) k/uL MPV Neutrophils % % Lymphocytes % % Monocytes % % Eosinophils % % Basophils % % Neutrophils # (1.3-7.7) k/uL Lymphocytes # (1.0-4.8) k/uL Monocytes # (0-1.0) k/uL Eosinophils # (0-0.7) k/uL Basophils # (0-0.2) k/uL PT (9.0-12.0) sec INR (<1.2) APTT (22.0-30.0) sec Sodium (137-145) mmol/L Potassium (3.5-5.1) mmol/L Chloride (98-107) mmol/L Carbon Dioxide (22-30) mmol/L Anion Gap mmol/L BUN (7-17) mg/dL Creatinine (0.52-1.04) mg/dL Est GFR (CKD-EPI)AfAm (>60 ml/min/1.73 sqM) Est GFR (CKD-EPI)NonAf (>60 ml/min/1.73 sqM) Glucose (74-99) mg/dL Calcium (8.4-10.2) mg/dL Magnesium (1.6-2.3) mg/dL Total Bilirubin (0.2-1.3) mg/dL AST (14-36) U/L ALT (4-34) U/L Alkaline Phosphatase (38-126) U/L Troponin I 0.035 H* (0.000-0.034) ng/mL Total Protein (6.3-8.2) g/dL Albumin (3.5-5.0) g/dL Influenza Type A (PCR) Not Detected (Not Detectd) Influenza Type B (PCR) Not Detected (Not Detectd) RSV (PCR) Not Detected (Not Detectd) SARS-CoV-2 (PCR) Not Detected (Not Detectd) - EKG Data -: EKG Interpreted by Me EKG Comments: 12-lead Electrocardiogram Interpretation Note EKG was reviewed and interpreted by myself. 12-lead ECG performed at 0337 is interpreted by me as revealing ventricular paced rhythm at a rate of 80 beats per minute. Normal axis. QRS duration is 192 ms, QTc is 496 ms.. There were no acute ST or T wave abnormalities to suggest myocardial ischemia or injury. R wave progression across the precordium was satisfactory. By my interpretation this EKG is non-diagnostic for acute ischemia. When compared with EKG from 05/11/2022, no significant change. Disposition Clinical Impression: CHF (congestive heart failure), Pleural effusion, Dyspnea Disposition: ADMITTED IP TO THIS HOSP Condition: Stable Time of Disposition: 05:43
[2022-05-27 04:17] LABS: Basophils % (A) 0 %; Eosinophils # (A) 0.4 k/uL (0-0.7); Eosinophils % (A) 4 %; HCT 43.6 % (34.0-46.0); HGB 14.3 gm/dL (11.4-16.0); Lymphocytes # (A) 1.2 k/uL (1.0-4.8); Lymphocytes % (A) 13 %; MCH 30.8 pg (25.0-35.0); MCHC 32.7 g/dL (31.0-37.0); Mean Platelet Volume 9.4; Monocytes # (A) 0.4 k/uL (0-1.0); Monocytes % (A) 4 %; Neutrophils # (A) 7.3 k/uL (1.3-7.7); Neutrophils % (A) 78 %; Platelet Count 153 k/uL (150-450); RBC 4.64 m/uL (3.80-5.40); RDW 13.4 % (11.5-15.5); WBC 9.3 k/uL (3.8-10.6)
[2022-05-27 04:23] LABS: INR 3.9 (<1.2); Partial Thromboplastin Time 35.3 sec (22.0-30.0); Prothrombin Time 38.5 sec (9.0-12.0)
[2022-05-27 04:44] LABS: Albumin 3.8 g/dL (3.5-5.0); Calcium 8.8 mg/dL (8.4-10.2); Potassium 3.7 mmol/L (3.5-5.1); Total Bilirubin 1.4 mg/dL (0.2-1.3); Total Protein 6.3 g/dL (6.3-8.2)
--- NOTE | 2022-05-27 05:28 | XR ---
EXAMINATION TYPE: XR chest 2V DATE OF EXAM: 05/27/2022 COMPARISON: Difficulty in breathing. HISTORY: Chest x-ray 2 weeks ago TECHNIQUE: Frontal and lateral views of the chest are obtained. FINDINGS: Persistent cardiomegaly with multi lead pacemaker/defibrillator and moderate central vascu lar congestion. Persistent moderate-sized right pleural effusion and small left pleural effusion and associated bibasilar opacities. Upper lungs remain clear without pneumothorax. The osseous structures are intact. IMPRESSION: Persistent cardiomegaly with moderate central vascular congestion along with small left pleural effusion and moderate size right pleural effusion with associated bibasilar opacities favorin g compressive atelectasis. No significant change from most recent x-ray.
[2022-05-27] MEDS ORDERED: NALOXONE 0.4 MG/ML 1 ML VIAL IV PRN (05:43)
[2022-05-27] MEDS ORDERED: FUROSEMIDE 10 MG/ML 4 ML VIAL IV STA (05:44)
[2022-05-27] MEDS ORDERED: ASPIRIN 81 MG PO STA (08:02)
[2022-05-27] MEDS ORDERED: glipiZIDE 5 MG TAB PO SCH (09:00)
[2022-05-27] MEDS ORDERED: MORPHINE SULFATE 2 MG/ML SYRINGE IVP STA (09:37)
--- NOTE | 2022-05-27 09:39 | P.HPIM ---
History of Present Illness This is a pleasant 57 years old female with multiple medical problems including CHF, atrial fibrillation on blood thinner warfarin Patient presents because of dyspnea of one-day duration which woke her from night Patient denies chest pain or coughing No change in urine or bowel habits. She's been taking her medication as she supposed to be She's also on 2 L oxygen via nasal cannula Her underwater hunter is Dr. Thakkar and PCP Dr. Hernandez She denies smoking alcohol or illicit drugs Patient saturating 95% on 2 L oxygen and he is afebrile. unremarkable cbc inr is 3.9 creatinine is elevated 1.4 which is at baseline Mildly elevated troponin 0.035 0.052. Liver enzymes are significantly elevated. Undetected viruses including influenza, RSV and coronavirus Chest x-ray: Bilateral pulmonary congestion with a right pleural effusion EKG showing ventricular paced rhythm at 80 Patient is started on IV Lasix 40 mg twice daily. Echocardiogram from 06/23/2021: Ejection fraction 20-25% with moderate to severe MR Review of Systems Review of systems CONSTITUTIONAL: No fever, no malaise, no fatigue. HEENT: No recent visual problems or hearing problems. Denied any sore throat. CARDIOVASCULAR: No orthopnea, PND, no palpitations, no syncope. PULMONARY: No chest wall tenderness, no hemoptysis. GASTROINTESTINAL: No diarrhea, no nausea, no vomiting, no abdominal pain. Normoactive bowel sounds. NEUROLOGICAL: No headaches, no weakness, no numbness. HEMATOLOGICAL: Denies any bleeding or petechiae. GENITOURINARY: Denies any burning micturition, frequency, or urgency. MUSCULOSKELETAL/RHEUMATOLOGICAL: Denies any joint pain, swelling, or any muscle pain. ENDOCRINE: Denies any polyuria or polydipsia. Past Medical History Past Medical History: Atrial Fibrillation, Cancer, Heart Failure, Diabetes Mellitus, Hyperlipidemia, Osteoarthritis (OA), Skin Disorder, Vascular Disorder Additional Past Medical History / Comment(s): basal cell skin cancer, rash on face, History of Any Multi-Drug Resistant Organisms: None Reported Past Surgical History: AICD, Appendectomy, Bladder Surgery, Bowel Resection, Cholecystectomy, Heart Catheterization, Hysterectomy, Tonsillectomy, Tubal Ligation Additional Past Surgical History / Comment(s): venogram/fluoroscopy, neema cataracts, Past Anesthesia/Blood Transfusion Reactions: No Reported Reaction Type of Cardiac Device: AICD Device Placement Date:: 2007 Past Psychological History: No Psychological Hx Reported Smoking Status: Never smoker Past Alcohol Use History: None Reported Past Drug Use History: None Reported - Past Family History Father Family Medical History: Cancer Mother Family Medical History: Cancer Sister(s) Family Medical History: Cancer, Deep Vein Thrombosis (DVT) Additional Family Medical History / Comment(s): skin cancer Brother(s) History Unknown: Yes Family Medical History: Cancer Additional Family Medical History / Comment(s): skin cancer Medications and Allergies Home Medications Medication Instructions Recorded Confirmed Type Simvastatin [Zocor] 20 mg PO HS 10/22/15 05/27/22 History Levothyroxine Sodium [Synthroid] 25 mcg PO AC-BRKFST 03/30/18 05/27/22 History Midodrine HCl [ProAmatine] 10 mg PO TID-W/MEALS 06/22/21 05/27/22 History Loperamide HCl [Imodium A-D] 1 mg PO BID 03/10/22 05/27/22 History glipiZIDE 7.5 mg PO BID 03/10/22 05/27/22 History Albuterol Nebulized [Ventolin 2.5 mg INHALATION RT-QID #120 ml 05/14/22 05/27/22 Rx Nebulized] Ipratropium Nebulized [Atrovent 0.5 mg INHALATION RT-QID #100 ml 05/14/22 05/27/22 Rx Nebulized 0.2 MG/ML] Warfarin [Coumadin] 1.5 mg PO MOWEFRSA #180 dose 05/14/22 05/27/22 Rx Warfarin [Coumadin] 2 mg PO SUTUTH #180 tab 05/14/22 05/27/22 Rx Bumetanide [BUMEX] 2 mg PO DAILY 05/27/22 05/27/22 History Allergies Allergy/AdvReac Type Severity Reaction Status Date / Time quinidine Allergy Rash/Hives Verified 05/27/22 07:32 CLEAR PLASTIC TAPE Allergy Rash/Hives Uncoded 05/27/22 07:32 Physical Exam Vitals: Vital Signs Pulse Resp BP Pulse Ox 05/27/22 06:00 80 16 108/60 95 05/27/22 05:07 80 17 103/62 95 05/27/22 03:44 16 05/27/22 03:20 80 16 128/68 96 Intake and Output 05/26/22 05/27/22 05/27/22 22:59 06:59 14:59 Other: Weight 60.781 kg GENERAL: The patient is alert and oriented x3, not in any acute distress. Well developed, well nourished. HEENT: Pupils are round and equally reacting to light. EOMI. No scleral icterus. No conjunctival pallor. Normocephalic, atraumatic. No pharyngeal erythema. No thyromegaly. CARDIOVASCULAR: S1 and S2 present. No murmurs, rubs, or gallops. -PULMONARY: Chest is clear to auscultation, no wheezing , Bilateral basal cr ackles. ABDOMEN: Soft, nontender, nondistended, normoactive bowel sounds. No palpable organomegaly. MUSCULOSKELETAL: No joint swelling or deformity. -EXTREMITIES: No cyanosis, clubbing, bilateral pitting leg NEUROLOGICAL: Gross neurological examination did not reveal any focal deficits. SKIN: No rashes. no petechiae. Results CBC & Chem 7: 05/27/22 03:44 05/27/22 03:44 Labs: Abnormal Lab Results - Last 24 Hours (Table) 05/27/22 05/27/22 05/27/22 Range/Units 03:44 03:44 03:44 PT 38.5 H (9.0-12.0) sec INR 3.9 H (<1.2) APTT 35.3 H (22.0-30.0) sec BUN 42 H (7-17) mg/dL Creatinine 1.43 H (0.52-1.04) mg/dL Glucose 214 H (74-99) mg/dL Total Bilirubin 1.4 H (0.2-1.3) mg/dL AST 43 H (14-36) U/L Troponin I 0.035 H* (0.000-0.034) ng/mL Assessment and Plan Assessment: Acute on chronic CHF, status post AICD. Ejection fraction 20-25% Mildly elevated troponin most likely secondary to CHF Atrial fibrillation's with RVR, on warfarin Coagulopathy secondary to Coumadin moderate to severe MR Chronic kidney disease stage III Diabetes mellitus Hyperlipidemia Hypothyroidism history of osteoarthritis Plan: Continue with IV Lasix Monitored input and output and creatinine Cardiology consult morphine 1 to help her tachypnea, splenic to the patient and she agrees Labs and medication were reviewed.. Continue same treatment. Continue with symptomatic treatment. Resume home medication. Monitor labs and vitals. DVT and GI prophylaxis. Further recommendations as per clinical course of the patient DVT prophylaxis: On warfarin, on hold for coagulopathy GI Prophylaxis: Pepcid PT/OT: Pending Prognosis is guarded
[2022-05-27] MEDS ORDERED: DEXTROSE 50% SYRINGE 50 ML IVP PRN ×2 (09:40)
[2022-05-27] MEDS: FAMOTIDINE 20 MG/2 ML VIAL IV SCH (09:50)
[2022-05-27] MEDS: LOPERAMIDE 2 MG CAP PO SCH ×2 (09:51→20:32)
--- NOTE | 2022-05-27 11:35 | P.CRDCN ---
History of Present Illness Consult date: 05/27/22 History of present illness: HISTORY OF PRESENT ILLNESS: This is a 87-year-old female with a past medical history significant for hypertension, hyperlipidemia, diabetes, congestive heart failure, valvular heart disease, biventricular AICD, chronic kidney disease, pleural effusions with history of thoracentesis and nonischemic cardiomyopathy.. Patient follows in the office with Dr. Thakkar. We have been asked to see the patient in consultation for congestive heart failure. Patient examined at the bedside. Patient presents to the hospital with a chief complaint of shortness of breath. Patient was recently discharged from the hospital secondary to congestive heart failure. The patient states she began to feel more short of breath over the past few days. She states she has been compliant with all of her medications. The patient was found to be in acute congestive heart failure. She was started on IV Lasix. * EKG reveals ventricular paced rhythm * Chest xray persistent cardiomegaly with moderate central vascular congestion along with small left pleural effusion and moderate sized pleural effusion with associated bibasilar opacities favoring compressive atelectasis. No significant change from most recent x-ray. * Laboratory data: * Current home cardiac medications include Midodrine 10mg TID with meals, warfarin 2 mg Tuesday and 1.5 mg on Tuesday, simvastatin 20 mg at night, Bumex 2 mg daily * Most recent echocardiogram obtained in June 2021 revealed ejection fraction 20- 25%, moderate to severe MR, trace to mild aortic regurgitation, mild tricuspid regurgitation * Cardiac catheterization history: 2007 revealing normal coronary arteries REVIEW OF SYSTEMS: At the time of my exam: CONSTITUTIONAL: Denies fever or chills. HEENT: Denies blurred vision, vision changes, or eye pain. Denies hemoptysis CARDIOVASCULAR: Denies chest pain. Denies orthopnea. Denies PND. Denies palpitations RESPIRATORY: Denies shortness of breath. GASTROINTESTINAL: Denies abdominal pain. Denies nausea or vomiting. HEMATOLOGIC: Denies bleeding disorders. GENITOURINARY: Denies any blood in urine. SKIN: Denies pruitis. Denies rash. PHYSICAL EXAM: VITAL SIGNS: Reviewed. GENERAL: Well-developed in no acute distress. HEENT: Head is normocephalic. Pupils are equal, round. Sclerae anicteric. Mucous membranes of the mouth are moist. Neck supple. No JVD or thyromegaly LUNGS: Respirations even and unlabored. Lungs with diminished lung sounds in the right. Crackles noted on left side. HEART: Regular rate and rhythm. S1 and S2 heard. Systolic murmur noted. ABDOMEN: Soft. Nondistended. Nontender. EXTREMITIES: Normal range of motion. No clubbing or cyanosis. Peripheral pulses intact. No lower extremity edema NEUROLOGIC: Awake and alert. Oriented x 3. ASSESSMENT: Shortness of breath Acute on chronic heart failure with reduced ejection fraction, 2024% Recurrent bilateral pleural effusions, right greater than left History of multiple thoracentesis in the past, most recently 04/27/2022 Nonischemic cardiomyopathy Borderline hypotension, on Midodrine outpatient Normal coronary arteries, per cardiac catheterization in 2007 Chronic kidney disease Hypertension Hyperlipidemia Diabetes History of complete heart block History of biventricular AICD Persistent atrial fibrillation, on warfarin outpatient Coumadin coagulopathy, INR 3.9 PLAN: Obtain 2-D echo to assess cardiac structure and function Resume home cardiac medications Continue IV Lasix Daily weights, accurate I&O, and monitoring of kidney function Possible addition of Farxiga pending kidney function Hold Coumadin. Monitor INR Patient may require thoracentesis if she does not see improvement with IV diuresis Further recommendations pending patient's course Nurse practitioner note has been reviewed by physician. Signing provider agrees with the documented findings, assessment, and plan of care. Past Medical History Past Medical History: Atrial Fibrillation, Cancer, Heart Failure, Diabetes Mellitus, Hyperlipidemia, Osteoarthritis (OA), Skin Disorder, Vascular Disorder Additional Past Medical History / Comment(s): basal cell skin cancer, rash on face, History of Any Multi-Drug Resistant Organisms: None Reported Past Surgical History: AICD, Appendectomy, Bladder Surgery, Bowel Resection, Cholecystectomy, Heart Catheterization, Hysterectomy, Tonsillectomy, Tubal Ligation Additional Past Surgical History / Comment(s): venogram/fluoroscopy, neema cataracts, Past Anesthesia/Blood Transfusion Reactions: No Reported Reaction Type of Cardiac Device: AICD Device Placement Date:: 2007 Past Psychological History: No Psychological Hx Reported Smoking Status: Never smoker Past Alcohol Use History: None Reported Past Drug Use History: None Reported - Past Family History Father Family Medical History: Cancer Mother Family Medical History: Cancer Sister(s) Family Medical History: Cancer, Deep Vein Thrombosis (DVT) Additional Family Medical History / Comment(s): skin cancer Brother(s) History Unknown: Yes Family Medical History: Cancer Additional Family Medical History / Comment(s): skin cancer Medications and Allergies Home Medications Medication Instructions Recorded Confirmed Type Simvastatin [Zocor] 20 mg PO HS 10/22/15 05/27/22 History Levothyroxine Sodium [Synthroid] 25 mcg PO AC-BRKFST 03/30/18 05/27/22 History Midodrine HCl [ProAmatine] 10 mg PO TID-W/MEALS 06/22/21 05/27/22 History Loperamide HCl [Imodium A-D] 1 mg PO BID 03/10/22 05/27/22 History glipiZIDE 7.5 mg PO BID 03/10/22 05/27/22 History Albuterol Nebulized [Ventolin 2.5 mg INHALATION RT-QID #120 ml 05/14/22 05/27/22 Rx Nebulized] Ipratropium Nebulized [Atrovent 0.5 mg INHALATION RT-QID #100 ml 05/14/2205/27 Rx Nebulized 0.2 MG/ML] Warfarin [Coumadin] 1.5 mg PO MOWEFRSA #180 dose 05/14/22 05/27/22 Rx Warfarin [Coumadin] 2 mg PO SUTUTH #180 tab 05/14/22 05/27/22 Rx Bumetanide [BUMEX] 2 mg PO DAILY 05/27/22 05/27/22 History Allergies Allergy/AdvReac Type Severity Reaction Status Date / Time quinidine Allergy Rash/Hives Verified 05/27/22 07:32 CLEAR PLASTIC TAPE Allergy Rash/Hives Uncoded 05/27/22 07:32 Physical Exam Vitals: Vital Signs Temp Pulse Pulse Resp BP BP Pulse Ox 05/27/22 08:30 98.0 F 80 19 112/69 97 05/27/22 06:00 80 16 108/60 95 05/27/22 05:07 80 17 103/62 95 05/27/22 03:44 16 05/27/22 03:20 80 16 128/68 96 Intake and Output 05/26/22 05/27/22 05/27/22 22:59 06:59 14:59 Intake Total 780 Balance 780 Intake: Oral 780 Other: Weight 60.781 kg Results 04/20/23 03:44 05/27/22 03:44 Cardiac Enzymes 05/27/22 05/27/22 05/27/22 Range/Units 03:44 03:44 08:08 AST 43 H (14-36) U/L Troponin I 0.035 H* 0.052 H* (0.000-0.034) ng/mL Coagulation 05/27/22 Range/Units 03:44 PT 38.5 H (9.0-12.0) sec APTT 35.3 H (22.0-30.0) sec CBC 05/27/22 Range/Units 03:44 WBC 9.3 (3.8-10.6) k/uL RBC 4.64 (3.80-5.40) m/uL Hgb 14.3 (11.4-16.0) gm/dL Hct 43.6 (34.0-46.0) % Plt Count 153 (150-450) k/uL Comprehensive Metabolic Panel 05/27/22 Range/Units 03:44 Sodium 141 (137-145) mmol/L Potassium 3.7 (3.5-5.1) mmol/L Chloride 104 (98-107) mmol/L Carbon Dioxide 27 (22-30) mmol/L BUN 42 H (7-17) mg/dL Creatinine 1.43 H (0.52-1.04) mg/dL Glucose 214 H (74-99) mg/dL Calcium 8.8 (8.4-10.2) mg/dL AST 43 H (14-36) U/L ALT 30 (4-34) U/L Alkaline Phosphatase 102 (38-126) U/L Total Protein 6.3 (6.3-8.2) g/dL Albumin 3.8 (3.5-5.0) g/dL Current Medications Generic Name Dose Route Start Last Admin Trade Name Freq PRN Reason Stop Dose Admin Albuterol Sulfate 2.5 mg 05/27/22 12:00 Albuterol Nebulized 2.5 Mg/3 Ml INHALATION RT-QID VITO Atorvastatin Calcium 10 mg 05/27/22 21:00 Atorvastatin 10 Mg Tab PO HS VITO Dextrose/Water 25 ml 05/27/22 09:40 Dextrose 50% Syringe 50 Ml IVP PER PROTOCOL PRN Hypoglycemia Protocol Dextrose/Water 50 ml 05/27/22 09:40 Dextrose 50% Syringe 50 Ml IVP PER PROTOCOL PRN Hypoglycemia Protocol Famotidine 20 mg 05/27/22 09:30 05/27/22 09:50 Famotidine 20 Mg/2 Ml Vial IV 20 mg DAILY VITO Administration Furosemide 40 mg 05/27/22 21:00 Furosemide 10 Mg/Ml 4 Ml Vial IV Q12HR [facility] Glipizide 5 mg 05/27/22 21:00 Glipizide 5 Mg Tab PO BID [facility] Insulin Aspart 0 unit 05/27/22 12:30 Insulin Aspart (Novolog) 100 Unit/Ml Vial SQ ACHS [facility] Protocol Levothyroxine Sodium 25 mcg 05/28/22 07:30 Levothyroxine 25 Mcg Tab PO AC-BRKFST [facility] Loperamide HCl 2 mg 05/27/22 09:00 05/27/22 09:51 Loperamide 2 Mg Cap PO 2 mg BID VITO Administration Midodrine 10 mg 05/27/22 12:30 Midodrine 5 Mg Tab PO TID-W/MEALS [facility] Naloxone HCl 0.2 mg 05/27/22 05:43 Naloxone 0.4 Mg/Ml 1 Ml Vial IV Q2M PRN Opioid Reversal Intake and Output 05/26/22 05/27/22 05/27/22 22:59 06:59 14:59 Intake Total 780 Balance 780 Intake: Oral 780 Other: Weight 60.781 kg 05/27/22 03:44 05/27/22 03:44
[2022-05-27 11:50] LABS: Glucose,Whole Blood 150 mg/dL (70-110)
[2022-05-27] MEDS: INSULIN ASPART (NovoLOG) 100 UNIT/ML VIAL SQ SCH ×3 (12:09→20:32)
[2022-05-27] MEDS: ALBUTEROL NEBULIZED 2.5 MG/3 ML INHALATION SCH ×3 (12:37→20:49)
[2022-05-27] MEDS: MIDODRINE 5 MG TAB PO SCH ×2 (12:44→18:41)
[2022-05-27 16:22] LABS: Glucose,Whole Blood 166 mg/dL (70-110)
[2022-05-27 20:09] LABS: Glucose,Whole Blood 153 mg/dL (70-110)
[2022-05-27] MEDS: FUROSEMIDE 10 MG/ML 4 ML VIAL IV SCH (20:32)
[2022-05-27] MEDS: ATORVASTATIN 10 MG TAB PO SCH (20:32)
[2022-05-27] MEDS: glipiZIDE 5 MG TAB PO SCH (20:32)
[2022-05-27] MEDS: MELATONIN 3 MG TABLET PO SCH (20:33)
[2022-05-28 04:21] LABS: Appearance,Urine Clear (Clear); Bilirubin,Urine Negative (Negative); Blood,Urine Small (Negative); Color,Urine Light Yellow; Glucose,Urine (UA) Negative (Negative); Hyaline Casts,Urine 3 /lpf (0-2); Ketones,Urine Negative (Negative); Leukocyte Esterase,Urine Large (Negative); Mucus,Urine Rare /hpf; Nitrite,Urine Negative (Negative); PH, Urine 5.5 (5.0-8.0); Protein,Urine Negative (Negative); RBC,Urine 2 /hpf (0-5); Squamous Epithelial Cell,Urine 1 /hpf (0-4); Urobilinogen,Urine <2.0 mg/dL (<2.0); WBC,Urine 19 /hpf (0-5)
[2022-05-28] MEDS: LEVOTHYROXINE 25 MCG TAB PO SCH (05:57)
[2022-05-28 06:25] LABS: Glucose,Whole Blood 143 mg/dL (70-110)
[2022-05-28] MEDS: INSULIN ASPART (NovoLOG) 100 UNIT/ML VIAL SQ SCH ×4 (06:28→20:32)
[2022-05-28] MEDS: MIDODRINE 5 MG TAB PO SCH ×3 (06:53→17:19)
[2022-05-28] MEDS: ALBUTEROL NEBULIZED 2.5 MG/3 ML INHALATION SCH ×4 (08:17→20:58)
[2022-05-28 09:36] LABS: Basophils % (A) 1 %; Eosinophils # (A) 0.2 k/uL (0-0.7); Eosinophils % (A) 3 %; HCT 44.9 % (34.0-46.0); HGB 14.9 gm/dL (11.4-16.0); Lymphocytes # (A) 1.3 k/uL (1.0-4.8); Lymphocytes % (A) 15 %; MCH 31.5 pg (25.0-35.0); MCHC 33.2 g/dL (31.0-37.0); Mean Platelet Volume 8.8; Monocytes # (A) 0.4 k/uL (0-1.0); Monocytes % (A) 4 %; Neutrophils # (A) 6.6 k/uL (1.3-7.7); Neutrophils % (A) 77 %; Platelet Count 156 k/uL (150-450); RBC 4.73 m/uL (3.80-5.40); RDW 13.4 % (11.5-15.5); WBC 8.6 k/uL (3.8-10.6)
[2022-05-28 09:46] LABS: INR 3.4 (<1.2); Prothrombin Time 33.3 sec (9.0-12.0)
[2022-05-28] MEDS: FAMOTIDINE 20 MG/2 ML VIAL IV SCH (09:46)
[2022-05-28] MEDS: FUROSEMIDE 10 MG/ML 4 ML VIAL IV SCH ×2 (09:46→20:05)
[2022-05-28] MEDS: glipiZIDE 5 MG TAB PO SCH ×2 (09:46→20:05)
[2022-05-28] MEDS: LOPERAMIDE 2 MG CAP PO SCH ×2 (09:46→20:05)
[2022-05-28 10:58] LABS: Calcium 8.8 mg/dL (8.4-10.2); Potassium 3.6 mmol/L (3.5-5.1)
[2022-05-28 11:49] LABS: Glucose,Whole Blood 169 mg/dL (70-110)
--- NOTE | 2022-05-28 11:51 | P.PN ---
Subjective Progress Note Date: 05/28/22 PROGRESS NOTE The patient is an 87-year-old female with known history of severe nonischemic myopathy, history of diabetes, chronic kidney disease who presented with worsening dyspnea, significant right-sided effusion and findings of CHF. She continues to be dyspneic. She denies any chest discomfort. She feels tired. She has no dizziness or palpitations. She has prior history of thoracentesis with improvement in her symptoms. She continues to be on IV diuretics. Her echocardiogram in the past showed a severely impaired systolic function with moderate to severe mitral regurgitation. Medications: Atorvastatin 10 mg daily, furosemide 40 mg IV every 12 hours, midodrine 10 mg 3 times a day. Her Coumadin is on hold. PHYSICAL EXAMINATION: Blood pressure 117/60 heart rate 88 LUNGS: Decreased breath sounds on the right HEART: Regular rate and rhythm, S1, S2. No S3. Holosystolic murmur ABDOMEN: Soft, nontender, no organomegaly EXTREMETIES: No edema LAB: INR 3.4. BUN 45, creatinine 1.45 IMPRESSION: 1. Acute exacerbation of CHF with reduced ejection fraction with nonischemic myopathy 2. Right pleural effusion 3. Chronic kidney disease 4. Status post biventricular ICD 5. History of atrial fibrillation PLAN: 1. I would add Farxiga 10 mg to her regimen 2. Pulmonary consultation for thoracentesis 3. Continue to hold Coumadin for now 4. Depending on her progress further recommendations will be made Objective - Vital Signs Vital signs: Vital Signs Temp 98.7 F 05/28/22 08:10 Pulse 80 05/28/22 11:45 Resp 19 05/28/22 08:10 BP 117/56 05/28/22 08:10 Pulse Ox 95 05/28/22 08:19 FiO2 Intake & Output 05/27/22 05/28/22 05/28/22 18:59 06:59 18:59 Intake Total 1020 240 238 Output Total 700 Balance 1020 -460 238 Weight 62 kg Intake: Oral 1020 240 238 Output: Urine 700 Other: Voiding Method Toilet Toilet # Voids 5 4 - Labs CBC & Chem 7: 05/28/22 09:19 05/28/22 09:19 Labs: Abnormal Lab Results - Last 24 Hours (Table) 05/27/22 05/27/22 05/27/22 Range/Units 03:29 11:49 16:20 PT (9.0-12.0) sec INR (<1.2) BUN (7-17) mg/dL Creatinine (0.52-1.04) mg/dL Glucose (74-99) mg/dL POC Glucose (mg/dL) 150 H 166 H (70-110) mg/dL Urine Blood Small H (Negative) Ur Leukocyte Esterase Large H (Negative) Urine WBC 19 H (0-5) /hpf Hyaline Casts 3 H (0-2) /lpf Urine Mucus Rare H (None) /hpf 05/27/22 05/28/22 05/28/22 Range/Units 20:07 06:23 09:19 PT (9.0-12.0) sec INR (<1.2) BUN 45 H (7-17) mg/dL Creatinine 1.45 H (0.52-1.04) mg/dL Glucose 232 H (74-99) mg/dL POC Glucose (mg/dL) 153 H 143 H (70-110) mg/dL Urine Blood (Negative) Ur Leukocyte Esterase (Negative) Urine WBC (0-5) /hpf Hyaline Casts (0-2) /lpf Urine Mucus (None) /hpf 05/28/22 Range/Units 09:19 PT 33.3 H (9.0-12.0) sec INR 3.4 H (<1.2) BUN (7-17) mg/dL Creatinine (0.52-1.04) mg/dL Glucose (74-99) mg/dL POC Glucose (mg/dL) (70-110) mg/dL Urine Blood (Negative) Ur Leukocyte Esterase (Negative) Urine WBC (0-5) /hpf Hyaline Casts (0-2) /lpf Urine Mucus (None) /hpf
--- NOTE | 2022-05-28 12:07 | P.PN ---
Subjective This is a pleasant 57 years old female with multiple medical problems including CHF, atrial fibrillation on blood thinner warfarin Patient presents because of dyspnea of one-day duration which woke her from night Patient denies chest pain or coughing No change in urine or bowel habits. She's been taking her medication as she supposed to be She's also on 2 L oxygen via nasal cannula Her catalyst plant supervisor is Dr. Thakkar and PCP Dr. Hernandez She denies smoking alcohol or illicit drugs Patient saturating 95% on 2 L oxygen and he is afebrile. unremarkable cbc inr is 3.9 creatinine is elevated 1.4 which is at baseline Mildly elevated troponin 0.035 0.052. Liver enzymes are significantly elevated. Undetected viruses including influenza, RSV and coronavirus Chest x-ray: Bilateral pulmonary congestion with a right pleural effusion EKG showing ventricular paced rhythm at 80 Patient is started on IV Lasix 40 mg twice daily. Echocardiogram from 06/23/2021: Ejection fraction 20-25% with moderate to severe MR 05/28/2022 patient still complaining from dyspnea, she had another episode of paroxysmal nocturnal dyspnea happened overnight. She still slightly tachypneic and oxygen saturation in the low 90s. Although on examination she does not have much of basal crepitation but probably because of her pleural effusion. Her leg edema is also minimal. However with no improvement in her respiratory symptoms we consulted pulmonary team for possible thoracocentesis. She has average urine output on the current dose of IV Lasix 40 mg twice daily. Coumadin remains on hold and INR 3.4. Creatinine 1.4 Objective - Vital Signs Vital signs: Vital Signs Temp 98.7 F 05/28/22 08:10 Pulse 84 05/28/22 11:56 Resp 19 05/28/22 08:10 BP 117/56 05/28/22 08:10 Pulse Ox 95 05/28/22 08:19 FiO2 Intake & Output 05/27/22 05/28/22 05/28/22 18:59 06:59 18:59 Intake Total 1020 240 238 Output Total 700 Balance 1020 -460 238 Weight 62 kg Intake: Oral 1020 240 238 Output: Urine 700 Other: Voiding Method Toilet Toilet # Voids 5 4 - Exam GENERAL: The patient is alert and oriented x3, not in any acute distress. Well developed, well nourished. HEENT: Pupils are round and equally reacting to light. EOMI. No scleral icterus. No conjunctival pallor. Normocephalic, atraumatic. No pharyngeal erythema. No thyromegaly. CARDIOVASCULAR: S1 and S2 present. No murmurs, rubs, or gallops. -PULMONARY: Chest is clear to auscultation, no wheezing . Decreased breath sounds on the lung bases ABDOMEN: Soft, nontender, nondistended, normoactive bowel sounds. No palpable organomegaly. MUSCULOSKELETAL: No joint swelling or deformity. -EXTREMITIES: No cyanosis, clubbing. Minimal bilateral pitting leg edema NEUROLOGICAL: Gross neurological examination did not reveal any focal deficits. SKIN: No rashes. no petechiae. - Labs CBC & Chem 7: 05/28/22 09:19 05/28/22 09:19 Labs: Abnormal Lab Results - Last 24 Hours (Table) 05/27/22 05/27/22 05/27/22 Range/Units 03:29 16:20 20:07 PT (9.0-12.0) sec INR (<1.2) BUN (7-17) mg/dL Creatinine (0.52-1.04) mg/dL Glucose (74-99) mg/dL POC Glucose (mg/dL) 166 H 153 H (70-110) mg/dL Urine Blood Small H (Negative) Ur Leukocyte Esterase Large H (Negative) Urine WBC 19 H (0-5) /hpf Hyaline Casts 3 H (0-2) /lpf Urine Mucus Rare H (None) /hpf 05/28/22 05/28/22 05/28/22 Range/Units 06:23 09:19 09:19 PT 33.3 H (9.0-12.0) sec INR 3.4 H (<1.2) BUN 45 H (7-17) mg/dL Creatinine 1.45 H (0.52-1.04) mg/dL Glucose 232 H (74-99) mg/dL POC Glucose (mg/dL) 143 H (70-110) mg/dL Urine Blood (Negative) Ur Leukocyte Esterase (Negative) Urine WBC (0-5) /hpf Hyaline Casts (0-2) /lpf Urine Mucus (None) /hpf 05/28/22 Range/Units 11:48 PT (9.0-12.0) sec INR (<1.2) BUN (7-17) mg/dL Creatinine (0.52-1.04) mg/dL Glucose (74-99) mg/dL POC Glucose (mg/dL) 169 H (70-110) mg/dL Urine Blood (Negative) Ur Leukocyte Esterase (Negative) Urine WBC (0-5) /hpf Hyaline Casts (0-2) /lpf Urine Mucus (None) /hpf Assessment and Plan Assessment: Acute on chronic CHF, status post AICD. Ejection fraction 20-25% Mildly elevated troponin most likely secondary to CHF bilateral pleural effusion, more on the right side Atrial fibrillation's with RVR, on warfarin (on hold ) Coagulopathy secondary to Coumadin moderate to severe MR Chronic kidney disease stage III Diabetes mellitus Hyperlipidemia Hypothyroidism history of osteoarthritis Plan: Continue with IV Lasix Monitored input and output and creatinine Consults pulmonary team for possible thoracocentesis Cardiology consult Labs and medication were reviewed.. Continue same treatment. Continue with s ymptomatic treatment. Resume home medication. Monitor labs and vitals. DVT and GI prophylaxis. Further recommendations as per clinical course of the patient DVT prophylaxis: On warfarin, on hold for coagulopathy GI Prophylaxis: Pepcid PT/OT: Pending Prognosis is guarded
[2022-05-28] MEDS ORDERED: PHYTONADIONE 5 MG in SODIUM CHLORIDE 0.9% 50 ML IVPB STA (13:36)
[2022-05-28] MEDS: DAPAGLIFLOZIN PROPANEDIOL 10 MG TABLET PO SCH (13:42)
--- NOTE | 2022-05-28 15:06 | P.CNPUL ---
History of Present Illness Consult date: 05/28/22 Reason for consult: pleural effusion History of present illness: This is an 87-year-old female patient with severe nonischemic myopathy and the p atient has had multiple hospitalizations for decompensated heart failure, pleural effusions. The patient also has history of chronic kidney disease and she has been very sensitive to diuretic use due to cardiorenal factors. The patient was aspirated again yesterday for shortness of breath. Chest x-ray shows a moderate-sized right-sided pleural effusion. Her last thoracentesis was in April 2022 and at that time the fluid was transudate. The patient is currently of any chest pain. The patient is having exertional dyspnea and orthopnea. She is is currently hospitalized. EKG showing a paced rhythm. Chest x-ray is consistent with CHF and a moderate-sized right-sided pleural effusion. Based on that the patient is on Lasix. The patient is also on Bumex on outpatient basis. She has chronic hypotension maintained on midodrine. Her left ejection fraction is in order of 20-25% and this is based on echocardiogram that was done in June 2021. Her coronaries are within normal based on a cardiac catheterization back in 2007. She is on warfarin for history of chronic atrial fibrillation. INR is at 3.4 on today's evaluation. Her other comorbidities include history of hypertension, hyperlipidemia, diabetes mellitus and the patient has a pacer AICD in place and she has an underlying complete heart block. She has had paroxysmal A. fib. Review of Systems CONSTITUTIONAL: No fever, no malaise, no fatigue. HEENT: No recent visual problems or hearing problems. Denied any sore throat. CARDIOVASCULAR: No orthopnea, PND, no palpitations, no syncope. The patient has exertional dyspnea and orthopnea secondary to CHF. He of any chest pain for now. PULMONARY: No chest wall tenderness, no hemoptysis. No cough or sputum production. GASTROINTESTINAL: No diarrhea, no nausea, no vomiting, no abdominal pain. Normoactive bowel sounds. NEUROLOGICAL: No headaches, no weakness, no numbness. HEMATOLOGICAL: Denies any bleeding or petechiae. GENITOURINARY: Denies any burning micturition, frequency, or urgency. MUSCULOSKELETAL/RHEUMATOLOGICAL: Denies any joint pain, swelling, or any muscle pain. ENDOCRINE: Denies any polyuria or polydipsia. Past Medical History Past Medical History: Atrial Fibrillation, Cancer, Heart Failure, Diabetes Mellitus, Hyperlipidemia, Osteoarthritis (OA), Skin Disorder, Vascular Disorder Additional Past Medical History / Comment(s): basal cell skin cancer, rash on face, History of Any Multi-Drug Resistant Organisms: None Reported Past Surgical History: AICD, Appendectomy, Bladder Surgery, Bowel Resection, Cholecystectomy, Heart Catheterization, Hysterectomy, Tonsillectomy, Tubal Ligation Additional Past Surgical History / Comment(s): venogram/fluoroscopy, neema cataracts, Past Anesthesia/Blood Transfusion Reactions: No Reported Reaction Type of Cardiac Device: AICD Device Placement Date:: 2007 Past Psychological History: No Psychological Hx Reported Smoking Status: Never smoker Past Alcohol Use History: None Reported Past Drug Use History: None Reported - Past Family History Father Family Medical History: Cancer Mother Family Medical History: Cancer Sister(s) Family Medical History: Cancer, Deep Vein Thrombosis (DVT) Additional Family Medical History / Comment(s): skin cancer Brother(s) History Unknown: Yes Family Medical History: Cancer Additional Family Medical History / Comment(s): skin cancer Medications and Allergies Home Medications Medication Instructions Recorded Confirmed Type Simvastatin [Zocor] 20 mg PO HS 10/22/15 05/27/22 History Levothyroxine Sodium [Synthroid] 25 mcg PO AC-BRKFST 03/30/18 05/27/22 History Midodrine HCl [ProAmatine] 10 mg PO TID-W/MEALS 06/22/21 05/27/22 History Loperamide HCl [Imodium A-D] 1 mg PO BID 03/10/22 05/27/22 History glipiZIDE 7.5 mg PO BID 03/10/22 05/27/22 History Albuterol Nebulized [Ventolin 2.5 mg INHALATION RT-QID #120 ml 05/14/22 05/27/22 Rx Nebulized] Ipratropium Nebulized [Atrovent 0.5 mg INHALATION RT-QID #100 ml 05/14/22 05/27/22 Rx Nebulized 0.2 MG/ML] Warfarin [Coumadin] 1.5 mg PO MOWEFRSA #180 dose 05/14/22 05/27/22 Rx Warfarin [Coumadin] 2 mg PO SUTUTH #180 tab 04/07/23 04/20/23 Rx Bumetanide [BUMEX] 2 mg PO DAILY 05/27/22 05/27/22 History Allergies Allergy/AdvReac Type Severity Reaction Status Date / Time quinidine Allergy Rash/Hives Verified 05/27/22 07:32 CLEAR PLASTIC TAPE Allergy Rash/Hives Uncoded 05/27/22 07:32 Physical Exam Vitals: Vital Signs Temp Pulse Pulse Resp BP Pulse Ox 05/28/22 13:59 81 19 05/28/22 12:00 98.1 F 81 19 118/62 95 05/28/22 11:56 84 05/28/22 11:45 80 05/28/22 08:29 88 05/28/22 08:19 84 95 05/28/22 08:10 98.7 F 81 19 117/56 95 05/28/22 08:00 81 19 05/28/22 06:45 127/62 05/28/22 04:00 97.6 F 75 20 111/66 92 L 05/28/22 02:00 80 22 05/28/22 00:00 98.4 F 80 22 118/64 92 L 05/27/22 21:04 90 05/27/22 20:50 88 05/27/22 20:00 97.3 F L 81 20 115/75 95 05/27/22 16:00 97.6 F 81 19 116/78 96 05/27/22 15:31 82 05/27/22 15:21 80 Intake and Output 05/28/22 05/28/22 05/28/22 06:59 14:59 22:59 Intake Total 240 238 Output Total 700 900 Balance -460 -662 Intake: Oral 240 238 Output: Urine 700 900 Other: Voiding Method Toilet Toilet # Voids 4 Weight 62 kg Physical Exam: Revealed 86-year-old female in no distress, on 3 L nasal cannula and O2 saturation 95 %, Head: Atraumatic, normocephalic HEENT:[Neck is supple.] [No neck masses.] [No thyromegaly.] Positive JVD. Chest: Symmetrical chest expansion, diminished breath sounds at the right base with dullness.. And the patient also dullness to percussion. Cardiac Exam: Irregular irregular rhythm. [Normal S1 and S2, no S3 gallop, 3/6 systolic murmur throughout the precordium mostly at the left lower sternal border Abdomen: [Soft, nontender, no megaly, no rebound, no guarding, normal bowel sounds.] Extremities: [No clubbing, no edema, no cyanosis.] Neurological Exam: Alert oriented 3 focal deficit Psychiatric: Normal mood affect and normal mental status examination. Skin: No rashes Musko skeletal: No deformities and no limitation in range of motion Results - Laboratory Findings CBC and BMP: 05/28/22 09:19 05/28/22 09:19 PT/INR, D-dimer PT 33.3 sec (9.0-12.0) H 05/28/22 09:19 INR 3.4 (<1.2) H 05/28/22 09:19 Abnormal lab findings: Abnormal Labs 05/27/22 05/27/22 05/27/22 03:29 03:44 03:44 PT 38.5 H INR 3.9 H APTT 35.3 H BUN 42 H Creatinine 1.43 H Glucose 214 H POC Glucose (mg/dL) Total Bilirubin 1.4 H AST 43 H Troponin I Urine Blood Small H Ur Leukocyte Esterase Large H Urine WBC 19 H Hyaline Casts 3 H Urine Mucus Rare H 05/27/22 05/27/22 05/27/22 03:44 08:08 11:49 PT INR APTT BUN Creatinine Glucose POC Glucose (mg/dL) 150 H Total Bilirubin AST Troponin I 0.035 H* 0.052 H* Urine Blood Ur Leukocyte Esterase Urine WBC Hyaline Casts Urine Mucus 05/27/22 05/27/22 05/28/22 16:20 20:07 06:23 PT INR APTT BUN Creatinine Glucose POC Glucose (mg/dL) 166 H 153 H 143 H Total Bilirubin AST Troponin I Urine Blood Ur Leukocyte Esterase Urine WBC Hyaline Casts Urine Mucus 05/28/22 05/28/22 05/28/22 09:19 09:19 11:48 PT 33.3 H INR 3.4 H APTT BUN 45 H Creatinine 1.45 H Glucose 232 H POC Glucose (mg/dL) 169 H Total Bilirubin AST Troponin I Urine Blood Ur Leukocyte Esterase Urine WBC Hyaline Casts Urine Mucus - Diagnostic Findings Chest x-ray: image reviewed Assessment and Plan Plan: Acute on chronic shortness of breath due to decompensated heart failure, and there is obvious worsening right-sided pleural effusion Acute hypoxic respiratory failure currently on 3 L of O2 nasal cannula Chronic bilateral pleural effusion worse on the right, previous thoracentesis indicating a transudate, the last thoracentesis was done in April 2022. Chronic systolic congestive heart failure, known to have ejection fraction of 2 0-25% and previous history of biventricular AICD placement. Bilateral pleural effusions consistent with congestive heart failure, no need for thoracentesis, continue medical treatment for now. Severe cardiomyopathy and LV dysfunction Chronic atrial fibrillation, current rhythmand the patient is admitted on warfarin. INR is at 3.4 Severe mitral valve regurgitation Type 2 diabetes Questionable underlying COPD Degenerative joint disease History of basal cell carcinoma/skin. History of pacer/AICD placement Plan Optimize CHF and the patient is currently on Lasix 40 mg every 12 hours Cardiac medication adjustment per cardiology Old warfarin and give the patient 5 mg of vitamin K IV Repeat INR in the morning Thoracentesis in the morning for symptomatic relief.
[2022-05-28 16:39] LABS: Glucose,Whole Blood 133 mg/dL (70-110)
--- NOTE | 2022-05-28 18:55 | CA ---
Transthoracic Echo Report Name: Azalea Tellez Age: 87 Gender: F : 1935 Exam Date: 05/28/2022 11:18 Exam Location: [facility] Ht (in): 65 Wt (lb): 136 Ordering Physician: Tamara Yeh Attending/Referring Phys: [id number], [employer] Operator Ramandeep Cabral RDCS Procedure CPT: Indications: LV function, CHF Cardiac Hx: Technical Quality: Fair Contrast 1: Total Dose (mL): Contrast 2: Total Dose (mL): MEASUREMENTS (Male / Female) Normal Values 2D ECHO LV Diastolic Diameter PLAX 7.3 cm 4.2 - 5.9 / 3.9 - 5.3 cm LV Systolic Diameter PLAX 6.6 cm IVS Diastolic Thickness 0.7 cm 0.6 - 1.0 / 0.6 - 0.9 cm LVPW Diastolic Thickness 1.0 cm 0.6 - 1.0 / 0.6 - 0.9 cm LV Relative Wall Thickness 0.2 LA Volume 169.7 cm??? 18 - 58 / 22 - 52 cm??? M-MODE Aortic Root Diameter MM 3.0 cm LA Systolic Diameter MM 5.9 cm LA Ao Ratio MM 2.0 AV Cusp Separation MM 1.6 cm DOPPLER AV Peak Velocity 125.3 cm/s AV Peak Gradient 6.3 mmHg AV Mean Velocity 86.8 cm/s AV Mean Gradient 3.3 mmHg AV Velocity Time Integral 20.5 cm AI Peak Velocity 341.6 cm/s AI Peak Gradient 46.7 mmHg AI Pressure Half Time 496.3 ms LVOT Peak Velocity 95.7 cm/s LVOT Peak Gradient 3.7 mmHg LVOT Velocity Time Integral 13.6 cm TR Peak Velocity 307.2 cm/s TR Peak Gradient 37.8 mmHg Right Ventricular Systolic Press 41.8 mmHg FINDINGS Left Ventricle Severely increased left ventricular diastolic diameter. Severe left ventricular dilatation. Severely reduced global left ventricular systolic function. Left ventricular ejection fraction is estimated at 20 %. Right Ventricle Normal right ventricular size and function. Moderate pulmonary hypertension. Right Atrium Normal right atrial size. Catheter/pacemaker wire in the right atrial cavity. Left Atrium Severely increased left atrial volume. Moderately increased left atrial area. Mitral Valve Mitral valve thickened. Mitral annular calcification. Severe mitral regurgitation. Centrally directed mitral regurgitation jet. Aortic Valve Trileaflet aortic valve. No aortic stenosis. Mild aortic regurgitation. Tricuspid Valve [id number] tricuspid regurgitation. Pulmonic Valve Trace pulmonic regurgitation. Pericardium No pericardial effusion. Aorta Normal size aortic root and proximal ascending aorta. CONCLUSIONS Severely dilated LV with severe LV dysfunction Heavily trabeculated LV Thickened mitral leaflets with severe mitral regurgitation Previewed by: Dr. Juan Cooper MD (Electronically Signed) Final Date: 28 May 2022 18:54
[2022-05-28] MEDS: ATORVASTATIN 10 MG TAB PO SCH (20:05)
[2022-05-28] MEDS: MELATONIN 3 MG TABLET PO SCH (20:05)
[2022-05-28 20:16] LABS: Glucose,Whole Blood 172 mg/dL (70-110)
[2022-05-29] MEDS: LEVOTHYROXINE 25 MCG TAB PO SCH (06:20)
[2022-05-29 06:22] LABS: Glucose,Whole Blood 132 mg/dL (70-110)
[2022-05-29] MEDS: INSULIN ASPART (NovoLOG) 100 UNIT/ML VIAL SQ SCH ×4 (06:24→20:32)
[2022-05-29] MEDS: MIDODRINE 5 MG TAB PO SCH ×3 (06:37→17:07)
[2022-05-29] MEDS: ALBUTEROL NEBULIZED 2.5 MG/3 ML INHALATION SCH ×4 (08:32→21:00)
[2022-05-29 08:54] LABS: INR 1.4 (<1.2); Prothrombin Time 14.5 sec (9.0-12.0)
[2022-05-29 09:11] LABS: Potassium 3.6 mmol/L (3.5-5.1)
[2022-05-29] MEDS: DAPAGLIFLOZIN PROPANEDIOL 10 MG TABLET PO SCH (09:29)
[2022-05-29] MEDS: FAMOTIDINE 20 MG/2 ML VIAL IV SCH (09:29)
[2022-05-29] MEDS: FUROSEMIDE 10 MG/ML 4 ML VIAL IV SCH ×2 (09:29→20:31)
[2022-05-29] MEDS: glipiZIDE 5 MG TAB PO SCH ×2 (09:29→20:30)
[2022-05-29] MEDS: LOPERAMIDE 2 MG CAP PO SCH ×2 (09:29→20:30)
--- NOTE | 2022-05-29 11:36 | P.PCN ---
Date of Procedure: 05/29/22 Preoperative Diagnosis: Right-sided pleural effusion Postoperative Diagnosis: Right-sided pleural effusion Procedure(s) Performed: Right-sided thoracentesis Anesthesia: local Surgeon: Tabby Rivera Pathology: other Condition: stable Disposition: floor Operative Findings: A time out was performed and the chest x-ray was reviewed, the appropriate side was confirmed and marked. My hands were washed immediately prior to the procedure. I wore a surgical cap, mask with protective eyewear, sterile gown and sterile gloves throughout the procedure. The patient was prepped and draped in a sterile manner using chlorhexidine scrub after the appropriate level was percussed and confirmed by ultrasound. 1% lidocaine was used to anesthesize the skin, subcutaneous tissue, superior aspect of the rib periosteum and parietal pleura. A finder needle was then introduced over the superior aspect of the rib to locate the pleural fluid; 2colored fluid was aspirated at a depth of approximately 2 cm. A 10-blade scalpel was used to camilla the skin at the insertion site. The [id number] needle was then introduced through the skin incision into the pleural space using negative aspiration pressure and the red colometric indicator to confirm appropriate positioning of the needle. The thoracentesis catheter was then threaded without difficulty. 2000 ml of turbid colored fluid was removed without difficulty. The catheter was then removed. No immediate complications were noted during the procedure. A post-procedure chest x-ray is pending at the time of this note. The fluid will not be sent for studies. Estimated blood loss is 0cc
[2022-05-29 11:42] LABS: Glucose,Whole Blood 194 mg/dL (70-110)
--- NOTE | 2022-05-29 12:41 | P.PN ---
Subjective Progress Note Date: 05/29/22 This is an 87-year-old female patient with severe nonischemic myopathy and the patient has had multiple hospitalizations for decompensated heart failure, pleural effusions. The patient also has history of chronic kidney disease and she has been very sensitive to diuretic use due to cardiorenal factors. The patient was aspirated again yesterday for shortness of breath. Chest x-ray shows a moderate-sized right-sided pleural effusion. Her last thoracentesis was in April 2022 and at that time the fluid was transudate. The patient is currently of any chest pain. The patient is having exertional dyspnea and orthopnea. She is is currently hospitalized. EKG showing a paced rhythm. Chest x-ray is consistent with CHF and a moderate-sized right-sided pleural effusion. Based on that the patient is on Lasix. The patient is also on Bumex on outpatient basis. She has chronic hypotension maintained on midodrine. Her left ejection fraction is in order of 20-25% and this is based on echocardiogram that was done in June 2021. Her coronaries are within normal based on a cardiac catheterization back in 2007. She is on warfarin for history of chronic atrial fibrillation. INR is at 3.4 on today's evaluation. Her other comorbidities include history of hypertension, hyperlipidemia, diabetes mellitus and the patient has a pacer AICD in place and she has an underlying complete heart block. She has had paroxysmal A. fib. On today's evaluation of 05/29/2022, patient is stable. The patient took vitamin K 5 mg yesterday and INR is down to 1.3. Thoracentesis was done on the right lung and a total of 2 L of fluid was aspirated. No complications. Follow-up chest x-ray shows significant improvement in the right-sided pleural effusion. No pneumothorax. The patient does have some residual pleural effusion the lung bases bilaterally. Noted that the underlying in the upper chest on the chest x-ray which is probably a skin fold. The patient remains on 3 L of oxygen by nasal cannula. Warfarin can be restarted. BUN is at 38 with a creatinine of 1.3. Sodium is at 44 with a potassium level of 3.6. Objective - Vital Signs Vital signs: Vital Signs Temp 98.4 F 05/29/22 08:00 Pulse 84 05/29/22 08:46 Resp 17 05/29/22 08:00 BP 111/56 05/29/22 08:00 Pulse Ox 96 05/29/22 08:34 FiO2 Intake & Output 05/28/22 05/29/22 05/29/22 18:59 06:59 18:59 Intake Total 418 240 120 Output Total 900 1000 1100 Balance -482 -760 -593 Weight 60.7 kg Intake: Oral 418 240 120 Output: Urine 900 1000 1100 Other: Voiding Method Toilet Toilet Toilet - Exam Physical Exam: Revealed 86-year-old female in no distress, on 3 L nasal cannula and O2 saturation 95 %, Head: Atraumatic, normocephalic HEENT:[Neck is supple.] [No neck masses.] [No thyromegaly.] Positive JVD. Chest: Symmetrical chest expansion, diminished breath sounds at the right base with dullness.. And the patient also dullness to percussion. Cardiac Exam: Irregular irregular rhythm. [Normal S1 and S2, no S3 gallop, 3/6 systolic murmur throughout the precordium mostly at the left lower sternal border Abdomen: [Soft, nontender, no megaly, no rebound, no guarding, normal bowel sounds.] Extremities: [No clubbing, no edema, no cyanosis.] Neurological Exam: Alert oriented 3 focal deficit Psychiatric: Normal mood affect and normal mental status examination. Skin: No rashes Musko skeletal: No deformities and no limitation in range of motion - Labs CBC & Chem 7: 05/28/22 09:19 05/29/22 08:14 Labs: Abnormal Lab Results - Last 24 Hours (Table) 05/28/22 05/28/22 05/28/22 Range/Units 09:19 11:48 16:38 PT (9.0-12.0) sec INR (<1.2) Carbon Dioxide (22-30) mmol/L BUN (7-17) mg/dL Creatinine (0.52-1.04) mg/dL Glucose (74-99) mg/dL POC Glucose (mg/dL) 169 H 133 H (70-110) mg/dL Hemoglobin A1c 7.2 H (0.0-6.0) % 05/28/22 05/29/22 05/29/22 Range/Units 20:14 06:20 08:14 PT (9.0-12.0) sec INR (<1.2) Carbon Dioxide 31 H (22-30) mmol/L BUN 38 H (7-17) mg/dL Creatinine 1.35 H (0.52-1.04) mg/dL Glucose 149 H (74-99) mg/dL POC Glucose (mg/dL) 172 H 132 H (70-110) mg/dL Hemoglobin A1c (0.0-6.0) % 05/29/22 Range/Units 08:14 PT 14.5 H (9.0-12.0) sec INR 1.4 H (<1.2) Carbon Dioxide (22-30) mmol/L BUN (7-17) mg/dL Creatinine (0.52-1.04) mg/dL Glucose (74-99) mg/dL POC Glucose (mg/dL) (70-110) mg/dL Hemoglobin A1c (0.0-6.0) % Assessment and Plan Plan: Acute on chronic shortness of breath due to decompensated heart failure, and there is obvious worsening right-sided pleural effusion, for thoracentesis and evacuation of 2 L of pleural fluid Acute hypoxic respiratory failure currently on 3 L of O2 nasal cannula Chronic bilateral pleural effusion worse on the right, previous thoracentesis indicating a transudate, the last thoracentesis was done in April 2022. Chronic systolic congestive heart failure, known to have ejection fraction of 20-25% and previous history of biventricular AICD placement. Bilateral pleural effusions consistent with congestive heart failure, no need for thoracentesis, continue medical treatment for now. Severe cardiomyopathy and LV dysfunction Chronic atrial fibrillation, current rhythmand the patient is admitted on warfarin. INR is at 3.4 Severe mitral valve regurgitation Type 2 diabetes Questionable underlying COPD Degenerative joint disease History of basal cell carcinoma/skin. History of pacer/AICD placement Plan Thoracentesis was completed Restart warfarin Optimize CHF and the patient is currently on Lasix 40 mg every 12 hours Cardiac medication adjustment per cardiology Monitor PT/INR Possible discharge in the next 24 hours
--- NOTE | 2022-05-29 12:47 | XR ---
EXAMINATION TYPE: XR chest 1V portable DATE OF EXAM: 05/29/2022 HISTORY: Status post right-sided thoracentesis COMPARISON: None. TECHNIQUE: Single view of the chest is submitted. FINDINGS: Demonstrated are scattered senescent parenchymal change. Diminution in right-sided pleural effusion. Small pleural effusions persist bilaterally as well as ba silar density which may reflect atelectasis or infiltrate. No evidence for sizable effusion. IACD device is noted. The heart is stable. Hilar and mediastinal structures are within normal limits. Degenerative changes are seen of the dorsal spine. IMPRESSION: 1. Diminution in right-sided pleural effusion. Small pleural effusions persist bilaterally as well a s basilar density which may reflect atelectasis or infiltrate. No evidence for sizable effusion.
--- NOTE | 2022-05-29 15:28 | P.PN ---
Subjective Progress Note Date: 05/29/22 The patient is an 87-year-old female with known history of severe nonischemic myopathy, history of diabetes, chronic kidney disease who presented with worsening dyspnea, significant right-sided effusion and findings of CHF. She continues to be dyspneic. She denies any chest discomfort. She feels tired. She has no dizziness or palpitations. She has prior history of thoracentesis with improvement in her symptoms. She continues to be on IV diuretics. Her echocardiogram in the past showed a severely impaired systolic function with moderate to severe mitral regurgitation. 05/29/2022 The patient was seen in consultation by pulmonology yesterday. She subsequently underwent right side thoracentesis this morning with 2000 mL of turbid fluid drained. Overall she is breathing significantly better. She has resting easier. Vital signs are stable. Labs this morning showed a BUN of 38 and creatinine 1.35. Objective - Vital Signs Vital signs: Vital Signs Temp 97.8 F 05/29/22 12:00 Pulse 78 05/29/22 14:00 Resp 17 05/29/22 14:00 BP 102/59 05/29/22 12:00 Pulse Ox 96 05/29/22 12:00 FiO2 Intake & Output 05/28/22 05/29/22 05/29/22 18:59 06:59 18:59 Intake Total 418 240 480 Output Total 900 1000 3100 Balance -773 -557 -1503 Weight 60.7 kg Intake: Oral 418 240 480 Output: Chest Tube Drainage 1600 Right Right Pleural/ 1600 Mediastinal Urine 900 1000 1500 Other: Voiding Method Toilet Toilet Toilet - Exam LUNGS: Reveal improved air exchange on the right HEART: Regular rate and rhythm, S1, S2. No S3. Holosystolic murmur ABDOMEN: Soft, nontender, no organomegaly EXTREMETIES: No edema - Labs CBC & Chem 7: 05/28/22 09:19 05/29/22 08:14 Labs: Abnormal Lab Results - Last 24 Hours (Table) 05/28/22 05/28/22 05/28/22 Range/Units 09:19 16:38 20:14 PT (9.0-12.0) sec INR (<1.2) Carbon Dioxide (22-30) mmol/L BUN (7-17) mg/dL Creatinine (0.52-1.04) mg/dL Glucose (74-99) mg/dL POC Glucose (mg/dL) 133 H 172 H (70-110) mg/dL Hemoglobin A1c 7.2 H (0.0-6.0) % 05/29/22 05/29/22 05/29/22 Range/Units 06:20 08:14 08:14 PT 14.5 H (9.0-12.0) sec INR 1.4 H (<1.2) Carbon Dioxide 31 H (22-30) mmol/L BUN 38 H (7-17) mg/dL Creatinine 1.35 H (0.52-1.04) mg/dL Glucose 149 H (74-99) mg/dL POC Glucose (mg/dL) 132 H (70-110) mg/dL Hemoglobin A1c (0.0-6.0) % 05/29/22 Range/Units 11:40 PT (9.0-12.0) sec INR (<1.2) Carbon Dioxide (22-30) mmol/L BUN (7-17) mg/dL Creatinine (0.52-1.04) mg/dL Glucose (74-99) mg/dL POC Glucose (mg/dL) 194 H (70-110) mg/dL Hemoglobin A1c (0.0-6.0) % Assessment and Plan Assessment: 1. Acute exacerbation of CHF with reduced ejection fraction with nonischemic myopathy 2. Right pleural effusion, status post thoracentesis 3. Chronic kidney disease 4. Status post biventricular ICD 5. History of atrial fibrillation Plan: From automatic tire tester perspective we will stop Coumadin and start the patient on Eliquis for anticoagulation. We will continue to follow the patient and provide further recommendations accordingly. SOLAR ENERGY INSTALLATION MANAGER note has been reviewed, I agree with a documented findings and plan of care. Patient was seen and examined.
--- NOTE | 2022-05-29 16:09 | P.PN ---
Subjective This is a pleasant 57 years old female with multiple medical problems including CHF, atrial fibrillation on blood thinner warfarin Patient presents because of dyspnea of one-day duration which woke her from night Patient denies chest pain or coughing No change in urine or bowel habits. 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 Hernandez She denies smoking alcohol or illicit drugs Patient saturating 95% on 2 L oxygen and he is afebrile. unremarkable cbc inr is 3.9 creatinine is elevated 1.4 which is at baseline Mildly elevated troponin 0.035 0.052. Liver enzymes are significantly elevated. Undetected viruses including influenza, RSV and coronavirus Chest x-ray: Bilateral pulmonary congestion with a right pleural effusion EKG showing ventricular paced rhythm at 80 Patient is started on IV Lasix 40 mg twice daily. Echocardiogram from 06/23/2021: Ejection fraction 20-25% with moderate to severe MR 05/28/2022 patient still complaining from dyspnea, she had another episode of paroxysmal nocturnal dyspnea happened overnight. She still slightly tachypneic and oxygen saturation in the low 90s. Although on examination she does not have much of basal crepitation but probably because of her pleural effusion. Her leg edema is also minimal. However with no improvement in her respiratory symptoms we consulted pulmonary team for possible thoracocentesis. She has average urine output on the current dose of IV Lasix 40 mg twice daily. Coumadin remains on hold and INR 3.4. Creatinine 1.4 05/29/2022 Patient underwent right thoracocentesis was about 1.8-2 L have been taken out Patient feeling better and leg expanding Repeat chest x-ray. 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 Prescription sent to the pharmacy for co-pay Possible discharge in 24-48 hours Objective - Vital Signs Vital signs: Vital Signs Temp 97.8 F 05/29/22 12:00 Pulse 78 05/29/22 14:00 Resp 17 05/29/22 14:00 BP 102/59 05/29/22 12:00 Pulse Ox 96 05/29/22 12:00 FiO2 Intake & Output 05/28/22 05/29/22 05/29/22 18:59 06:59 18:59 Intake Total 418 240 480 Output Total 900 1000 3100 Balance -784 -055 -2767 Weight 60.7 kg Intake: Oral 418 240 480 Output: Chest Tube Drainage 1600 Right Right Pleural/ 1600 Mediastinal Urine 900 1000 1500 Other: Voiding Method Toilet Toilet Toilet - Exam GENERAL: The patient is alert and oriented x3, not in any acute distress. Well developed, well nourished. HEENT: Pupils are round and equally reacting to light. EOMI. No scleral icterus. No conjunctival pallor. Normocephalic, atraumatic. No pharyngeal erythema. No thyromegaly. CARDIOVASCULAR: S1 and S2 present. No murmurs, rubs, or gallops. -PULMONARY: Chest is clear to auscultation, no wheezing . Decreased breath sounds on the lung bases ABDOMEN: Soft, nontender, nondistended, normoactive bowel sounds. No palpable organomegaly. MUSCULOSKELETAL: No joint swelling or deformity. -EXTREMITIES: No cyanosis, clubbing. Minimal bilateral pitting leg edema NEUROLOGICAL: Gross neurological examination did not reveal any focal deficits. SKIN: No rashes. no petechiae. - Labs CBC & Chem 7: 05/28/22 09:19 05/29/22 08:14 Labs: Abnormal Lab Results - Last 24 Hours (Table) 05/28/22 05/28/22 05/28/22 Range/Units 09:19 16:38 20:14 PT (9.0-12.0) sec INR (<1.2) Carbon Dioxide (22-30) mmol/L BUN (7-17) mg/dL Creatinine (0.52-1.04) mg/dL Glucose (74-99) mg/dL POC Glucose (mg/dL) 133 H 172 H (70-110) mg/dL Hemoglobin A1c 7.2 H (0.0-6.0) % 05/29/22 05/29/22 05/29/22 Range/Units 06:20 08:14 08:14 PT 14.5 H (9.0-12.0) sec INR 1.4 H (<1.2) Carbon Dioxide 31 H (22-30) mmol/L BUN 38 H (7-17) mg/dL Creatinine 1.35 H (0.52-1.04) mg/dL Glucose 149 H (74-99) mg/dL POC Glucose (mg/dL) 132 H (70-110) mg/dL Hemoglobin A1c (0.0-6.0) % 05/29/22 Range/Units 11:40 PT (9.0-12.0) sec INR (<1.2) Carbon Dioxide (22-30) mmol/L BUN (7-17) mg/dL Creatinine (0.52-1.04) mg/dL Glucose (74-99) mg/dL POC Glucose (mg/dL) 194 H (70-110) mg/dL Hemoglobin A1c (0.0-6.0) % Assessment and Plan Assessment: Acute on chronic CHF, status post AICD. Ejection fraction 20-25% Mildly elevated troponin most likely secondary to CHF bilateral pleural effusion, more on the right side, status post thoracocentesis Atrial fibrillation's with RVR, on warfarin (on hold ) Coagulopathy secondary to Coumadin moderate to severe MR Chronic kidney disease stage III Diabetes mellitus Hyperlipidemia Hypothyroidism history of osteoarthritis Plan: Continue with IV Lasix Status post thoracocentesis Cardiology consult and pulmonary consult Labs and medication were reviewed.. Continue same treatment. Continue with s ymptomatic treatment. Resume home medication. Monitor labs and vitals. DVT and GI prophylaxis. Further recommendations as per clinical course of the patient DVT prophylaxis: Eliquis GI Prophylaxis: Pepcid PT/OT: Pending Possible discharge in 24-48 hours
[2022-05-29 16:36] LABS: Glucose,Whole Blood 73 mg/dL (70-110)
[2022-05-29] MEDS ORDERED: WARFARIN 2 MG TAB PO ONE (18:00)
[2022-05-29 20:15] LABS: Glucose,Whole Blood 228 mg/dL (70-110)
[2022-05-29] MEDS: ATORVASTATIN 10 MG TAB PO SCH (20:30)
[2022-05-29] MEDS: MELATONIN 3 MG TABLET PO SCH (20:31)
[2022-05-29] MEDS: APIXABAN 2.5 MG TABLET PO SCH (20:31)
[2022-05-30 06:10] LABS: Glucose,Whole Blood 106 mg/dL (70-110)
[2022-05-30] MEDS: INSULIN ASPART (NovoLOG) 100 UNIT/ML VIAL SQ SCH ×2 (06:11→13:38)
[2022-05-30] MEDS: LEVOTHYROXINE 25 MCG TAB PO SCH (06:16)
[2022-05-30] MEDS: MIDODRINE 5 MG TAB PO SCH ×2 (06:36→13:39)
[2022-05-30] MEDS: DAPAGLIFLOZIN PROPANEDIOL 10 MG TABLET PO SCH (07:54)
[2022-05-30] MEDS: FUROSEMIDE 10 MG/ML 4 ML VIAL IV SCH (07:54)
[2022-05-30] MEDS: FAMOTIDINE 20 MG/2 ML VIAL IV SCH (07:54)
[2022-05-30] MEDS: glipiZIDE 5 MG TAB PO SCH (07:55)
[2022-05-30] MEDS: APIXABAN 2.5 MG TABLET PO SCH (07:55)
[2022-05-30] MEDS: LOPERAMIDE 2 MG CAP PO SCH (07:55)
[2022-05-30 08:46] LABS: INR 1.2 (<1.2); Prothrombin Time 12.4 sec (9.0-12.0)
[2022-05-30] MEDS: ALBUTEROL NEBULIZED 2.5 MG/3 ML INHALATION SCH ×2 (09:16→12:05)
[2022-05-30 09:17] VITALS: RESP 16
[2022-05-30 12:29] LABS: Potassium 3.5 mmol/L (3.5-5.1)
[2022-05-30 12:36] VITALS: BP 109/70; PULSE 80; TEMP 97.8
--- NOTE | 2022-05-30 12:46 | P.PN ---
Subjective Progress Note Date: 05/30/22 This is an 87-year-old female patient with severe nonischemic myopathy and the patient has had multiple hospitalizations for decompensated heart failure, pleural effusions. The patient also has history of chronic kidney disease and she has been very sensitive to diuretic use due to cardiorenal factors. The patient was aspirated again yesterday for shortness of breath. Chest x-ray shows a moderate-sized right-sided pleural effusion. Her last thoracentesis was in April 2022 and at that time the fluid was transudate. The patient is currently of any chest pain. The patient is having exertional dyspnea and orthopnea. She is is currently hospitalized. EKG showing a paced rhythm. Chest x-ray is consistent with CHF and a moderate-sized right-sided pleural effusion. Based on that the patient is on Lasix. The patient is also on Bumex on outpatient basis. She has chronic hypotension maintained on midodrine. Her left ejection fraction is in order of 20-25% and this is based on echocardiogram that was done in June 2021. Her coronaries are within normal based on a cardiac catheterization back in 2007. She is on warfarin for history of chronic atrial fibrillation. INR is at 3.4 on today's evaluation. Her other comorbidities include history of hypertension, hyperlipidemia, diabetes mellitus and the patient has a pacer AICD in place and she has an underlying complete heart block. She has had paroxysmal A. fib. On today's evaluation of 05/29/2022, patient is stable. The patient took vitamin K 5 mg yesterday and INR is down to 1.3. Thoracentesis was done on the right lung and a total of 2 L of fluid was aspirated. No complications. Follow-up chest x-ray shows significant improvement in the right-sided pleural effusion. No pneumothorax. The patient does have some residual pleural effusion the lung bases bilaterally. Noted that the underlying in the upper chest on the chest x-ray which is probably a skin fold. The patient remains on 3 L of oxygen by nasal cannula. Warfarin can be restarted. BUN is at 38 with a creatinine of 1.3. Sodium is at 44 with a potassium level of 3.6. 05/30/2022, the patient is doing well. No new complaints. Thoracentesis was done yesterday. A total of 2 L of pleural fluid was aspirated. The patient is less short of breath. The patient was started on anticoagulation with Eliquis and warfarin has been discontinued. She remains on Lasix 40 g IV every 12 hours. Electrolytes show a BUN of 39 with creatinine 1.4 and sodium levels of 142. The patient is currently on oxygen 2 L/m nasal cannula and the patient's pulse ox is 96%. Objective - Vital Signs Vital signs: Vital Signs Temp 97.7 F 05/30/22 08:00 Pulse 88 05/30/22 09:27 Resp 16 05/30/22 09:27 BP 99/63 05/30/22 08:00 Pulse Ox 97 05/30/22 09:16 FiO2 Intake & Output 05/29/22 05/30/22 05/30/22 18:59 06:59 18:59 Intake Total 480 245 Output Total 3450 600 Balance -2970 -600 245 Weight 58.6 kg Intake: IV 5 Invasive Line 1 5 Oral 480 240 Output: Chest Tube Drainage 1600 Right Right Pleural/ 1600 Mediastinal Urine 1850 600 Other: Voiding Method Toilet Toilet Toilet - Exam Physical Exam: Revealed 86-year-old female in no distress, on 3 L nasal cannula and O2 saturation 95 %, Head: Atraumatic, normocephalic HEENT:[Neck is supple.] [No neck masses.] [No thyromegaly.] Positive JVD. Chest: Symmetrical chest expansion, diminished breath sounds at the right base with dullness.. And the patient also dullness to percussion. Cardiac Exam: Irregular irregular rhythm. [Normal S1 and S2, no S3 gallop, 3/6 systolic murmur throughout the precordium mostly at the left lower sternal border Abdomen: [Soft, nontender, no megaly, no rebound, no guarding, normal bowel sounds.] Extremities: [No clubbing, no edema, no cyanosis.] Neurological Exam: Alert oriented 3 focal deficit Psychiatric: Normal mood affect and normal mental status examination. Skin: No rashes [place] skeletal: No deformities and no limitation in range of motion - Labs CBC & Chem 7: 05/28/22 09:19 05/30/22 11:33 Labs: Abnormal Lab Results - Last 24 Hours (Table) 05/29/22 05/29/22 05/30/22 Range/Units 11:40 20:13 07:34 PT 12.4 H (9.0-12.0) sec INR 1.2 H (<1.2) POC Glucose (mg/dL) 194 H 228 H (70-110) mg/dL Assessment and Plan Plan: Acute on chronic shortness of breath due to decompensated heart failure, and there is obvious worsening right-sided pleural effusion, for thoracentesis and evacuation of 2 L of pleural fluid Acute hypoxic respiratory failure currently on 3 L of O2 nasal cannula Chronic bilateral pleural effusion worse on the right, previous thoracentesis indicating a transudate, the last thoracentesis was done in April 2022. Chronic systolic congestive heart failure, known to have ejection fraction of 20-25% and previous history of biventricular AICD placement. Bilateral pleural effusions consistent with congestive heart failure, no need for thoracentesis, continue medical treatment for now. Severe cardiomyopathy and LV dysfunction Chronic atrial fibrillation, current anticoagulation is with Eliquis and the warfarin has been discontinued Severe mitral valve regurgitation Type 2 diabetes Questionable underlying COPD Degenerative joint disease History of basal cell carcinoma/skin. History of pacer/AICD placement Plan Thoracentesis was completed Clinically improved Warfarin is discontinued and the patient was started on anti-fibrillation with Eliquis Optimize CHF and the patient is currently on Lasix 40 mg every 12 hours Cardiac medication adjustment per cardiology Currently on 2 L of oxygen by nasal cannula Possible discharge in the next 24 hours
[2022-05-30 12:47] LABS: Glucose,Whole Blood 149 mg/dL (70-110)
--- NOTE | 2022-05-30 13:29 | P.PN ---
Subjective Progress Note Date: 05/30/22 The patient is an 87-year-old female with known history of severe nonischemic myopathy, history of diabetes, chronic kidney disease who presented with worsening dyspnea, significant right-sided effusion and findings of CHF. She continues to be dyspneic. She denies any chest discomfort. She feels tired. She has no dizziness or palpitations. She has prior history of thoracentesis with improvement in her symptoms. She continues to be on IV diuretics. Her echocardiogram in the past showed a severely impaired systolic function with moderate to severe mitral regurgitation. 05/29/2022 The patient was seen in consultation by pulmonology yesterday. She subsequently underwent right side thoracentesis this morning with 2000 mL of turbid fluid drained. Overall she is breathing significantly better. She has resting easier. Vital signs are stable. Labs this morning showed a BUN of 38 and creatinine 1.35. 05/30/2022 The patient was seen and examined resting comfortably in bed. She states she f eels better that she have any long time. She is breathing easier. She really remains on IV Lasix 40 mg IV push every 12 hours she is also on Farxiga. She's been initiated on Eliquis for anticoagulation. Labs today showed BUN of 39 and creatinine of 1.48. Objective - Vital Signs Vital signs: Vital Signs Temp 97.7 F 05/30/22 08:00 Pulse 88 05/30/22 12:23 Resp 16 05/30/22 09:27 BP 99/63 05/30/22 08:00 Pulse Ox 97 05/30/22 09:16 FiO2 Intake & Output 05/29/22 05/30/22 05/30/22 18:59 06:59 18:59 Intake Total 480 245 Output Total 3450 600 Balance -2970 -600 245 Weight 58.6 kg Intake: IV 5 Invasive Line 1 5 Oral 480 240 Output: Chest Tube Drainage 1600 Right Right Pleural/ 1600 Mediastinal Urine 1850 600 Other: Voiding Method Toilet Toilet Toilet - Exam LUNGS: Reveal improved air exchange on the right with faint crackles at the right lower lobe HEART: Regular rate and rhythm, S1, S2. No S3. Holosystolic murmur ABDOMEN: Soft, nontender, no organomegaly EXTREMETIES: No edema - Labs CBC & Chem 7: 05/28/22 09:19 05/30/22 11:33 Labs: Abnormal Lab Results - Last 24 Hours (Table) 05/29/22 05/30/22 Range/Units 20:13 07:34 PT 12.4 H (9.0-12.0) sec INR 1.2 H (<1.2) POC Glucose (mg/dL) 228 H (70-110) mg/dL Assessment and Plan Assessment: 1. Acute exacerbation of CHF with reduced ejection fraction with nonischemic myopathy 2. Right pleural effusion, status post thoracentesis 3. Chronic kidney disease 4. Status post biventricular ICD 5. 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 From our standpoint patient is stable for discharge home. She will follow-up in the office as an outpatient with Dr. Thakkar. DEALER SUPPORT TECHNICIAN note has been reviewed, I agree with a documented findings and plan of care. Patient was seen and examined.
== END 2022-05-30 14:38 | disposition home health service (06) | DRG 291 ==
LOC: EC 03:15 → 3SCARD 05:43 → OBSVTOIN 05-28 12:03
PROVIDERS: ADMIT Internal Medicine; ATTEND Internal Medicine
PROC: 0W993ZZ Drainage of Right Pleural Cavity, Percutaneous Approach (ICD-10-PCS; principal; 2022-05-29)
DX: I13.0 Hypertensive heart and chronic kidney disease with heart failure and stage 1 through stage 4 chronic kidney disease, or unspecified chronic kidney disease (principal); I50.23 Acute on chronic systolic (congestive) heart failure; D68.9 Coagulation defect, unspecified; I44.2 Atrioventricular block, complete; J90 Pleural effusion, not elsewhere classified; I48.19 Other persistent atrial fibrillation; J98.11 Atelectasis; Z20.822 Contact with and (suspected) exposure to COVID-19; I42.8 Other cardiomyopathies; R79.89 Other specified abnormal findings of blood chemistry; E11.22 Type 2 diabetes mellitus with diabetic chronic kidney disease; T45.515A Adverse effect of anticoagulants, initial encounter; I08.3 Combined rheumatic disorders of mitral, aortic and tricuspid valves; N18.30 Chronic kidney disease, stage 3 unspecified; E78.5 Hyperlipidemia, unspecified; I27.20 Pulmonary hypertension, unspecified; I95.89 Other hypotension; M19.90 Unspecified osteoarthritis, unspecified site; E03.9 Hypothyroidism, unspecified; Z79.890 Hormone replacement therapy; X58.XXXA Exposure to other specified factors, initial encounter; Z79.01 Long term (current) use of anticoagulants; Z79.84 Long term (current) use of oral hypoglycemic drugs; Z79.899 Other long term (current) drug therapy; Z85.828 Personal history of other malignant neoplasm of skin; Z90.710 Acquired absence of both cervix and uterus; Z98.51 Tubal ligation status; Z87.19 Personal history of other diseases of the digestive system; Z95.810 Presence of automatic (implantable) cardiac defibrillator; Z88.1 Allergy status to other antibiotic agents; Z91.048 Other nonmedicinal substance allergy status; Z98.1 Arthrodesis status
CPT/HCPCS: 36415; 71045; 71046; 80048; 80053; 81001; 83036; 83735; 83880; 84484; 85025; 85610; 85730; 87636; 93005; 93306; 94640; 94760; 96374; 99285

== ENCOUNTER 2022-06-13 18:11 | Inpatient (IN) | payer MEDICARE, BC ==
[2022-06-13 18:58] LABS: Basophils % (A) 0 %; Eosinophils # (A) 0.1 k/uL (0-0.7); Eosinophils % (A) 1 %; HCT 45.9 % (34.0-46.0); HGB 15.2 gm/dL (11.4-16.0); Lymphocytes # (A) 1.6 k/uL (1.0-4.8); Lymphocytes % (A) 19 %; MCH 30.7 pg (25.0-35.0); MCHC 33.2 g/dL (31.0-37.0); MCV 92.4 fL (80.0-100.0); Mean Platelet Volume 9.3; Monocytes # (A) 0.4 k/uL (0-1.0); Monocytes % (A) 5 %; Neutrophils # (A) 5.9 k/uL (1.3-7.7); Neutrophils % (A) 72 %; Platelet Count 190 k/uL (150-450); RBC 4.97 m/uL (3.80-5.40); RDW 14.2 % (11.5-15.5); WBC 8.2 k/uL (3.8-10.6)
[2022-06-13 19:08] LABS: Albumin 4.2 g/dL (3.5-5.0); Magnesium 2.4 mg/dL (1.6-2.3); Potassium 3.6 mmol/L (3.5-5.1); Total Bilirubin 1.4 mg/dL (0.2-1.3)
--- NOTE | 2022-06-13 19:20 | XR ---
EXAMINATION TYPE: XR chest 2V DATE OF EXAM: 06/13/2022 6:59 PM COMPARISON: Chest x-ray 05/29/2022, chest x-ray 05/27/2022 TECHNIQUE: XR chest 2V . CLINICAL INDICATION:Female, 87 years old with history of difficulty breathing; FINDINGS: Lungs/Pleura: Moderate volume right pleural effusion and persistent small volume of pleural effusion with associated bibasilar atelectasis. Overall similar in appearance to prior radiograph of 05/27/2022 . No pneumothorax. Pulmonary vascularity: Mild pulmonary vascular congestion. Heart/mediastinum: Cardiomediastinal silhouette is enlarged and stable. Two lead cardiac conduction d evice overlying the left hemithorax with lead tips projecting over the right ventricle and right atri um. Musculoskeletal: Degenerative changes of the thoracolumbar spine. IMPRESSION: 1. Moderate right and small left pleural effusions with associated atelectasis. Overall similar to p rior radiograph of 05/27/2022. 2. Cardiomegaly with pulmonary vascular congestion.
[2022-06-13 19:22] LABS: INR 1.1 (<1.2); Prothrombin Time 11.5 sec (9.0-12.0)
[2022-06-13] MEDS ORDERED: FUROSEMIDE 10 MG/ML 4 ML VIAL IV STA ×2 (20:08→23:59)
--- NOTE | 2022-06-13 20:09 | ED ---
SOB HPI - General Chief Complaint: Shortness of Breath Stated Complaint: SOB Time Seen by Provider: 06/13/22 18:20 Source: patient Mode of arrival: ambulatory Limitations: no limitations - History of Present Illness Initial Comments: Patient is an 87-year-old female with history of CHF presenting with chief complaint of shortness of breath. Patient has had increased shortness of breath over the last few days. She notes it has been increasingly difficult to fall sleep laying down or even in a recliner. She notes a small amount of swelling to the abdomen and lower extremities. She notes a dry cough. Denies chest pain, palpitations, numbness, tingling, abdominal pain, nausea, vomiting, pain down the arms or up the neck, fever, chills. - Related Data Home Medications Medication Instructions Recorded Confirmed Simvastatin [Zocor] 20 mg PO HS 10/22/15 06/13/22 Levothyroxine Sodium [Synthroid] 25 mcg PO AC-BRKFST 03/30/18 06/13/22 Midodrine HCl [ProAmatine] 10 mg PO TID-W/MEALS 06/22/21 06/13/22 Loperamide HCl [Imodium A-D] 1 mg PO BID 03/10/22 06/13/22 glipiZIDE 7.5 mg PO BID 03/10/22 06/13/22 Ipratropium-Albuterol Nebulize 3 ml INHALATION RT-QID 06/13/22 06/13/22 [Duoneb 0.5 mg-3 mg/3 ml Soln] Previous Rx's Medication Instructions Recorded Albuterol Nebulized [Ventolin 2.5 mg INHALATION RT-QID #120 ml 05/14/22 Nebulized] Apixaban [Eliquis] 2.5 mg PO BID #60 tab 05/29/22 Bumetanide [BUMEX] 2 mg PO DAILY #30 tab 05/30/22 Dapagliflozin Propanediol [Farxiga] 10 mg PO DAILY #30 tab 05/30/22 Allergies Allergy/AdvReac Type Severity Reaction Status Date / Time quinidine Allergy Rash/Hives Verified 06/13/22 20:12 CLEAR PLASTIC TAPE Allergy Rash/Hives Uncoded 06/13/22 20:12 Review of Systems ROS Statement: Those systems with pertinent positive or pertinent negative responses have been documented in the HPI. ROS Other: All systems not noted in ROS Statement are negative. Past Medical History Past Medical History: Atrial Fibrillation, Cancer, Heart Failure, Diabetes Melli tus, Hyperlipidemia, Osteoarthritis (OA), Skin Disorder, Vascular Disorder Additional Past Medical History / Comment(s): basal cell skin cancer, rash on face, History of Any Multi-Drug Resistant Organisms: None Reported Past Surgical History: AICD, Appendectomy, Bladder Surgery, Bowel Resection, Cholecystectomy, Heart Catheterization, Hysterectomy, Tonsillectomy, Tubal Ligation Additional Past Surgical History / Comment(s): venogram/fluoroscopy, neema cataracts, Past Anesthesia/Blood Transfusion Reactions: No Reported Reaction Type of Cardiac Device: AICD Device Placement Date:: 2007 Past Psychological History: No Psychological Hx Reported Smoking Status: Never smoker Past Alcohol Use History: None Reported Past Drug Use History: None Reported - Past Family History Father Family Medical History: Cancer Mother Family Medical History: Cancer Sister(s) Family Medical History: Cancer, Deep Vein Thrombosis (DVT) Additional Family Medical History / Comment(s): skin cancer Brother(s) History Unknown: Yes Family Medical History: Cancer Additional Family Medical History / Comment(s): skin cancer General Exam Limitations: no limitations General appearance: alert, in no apparent distress Head exam: Present: atraumatic, normocephalic, normal inspection Eye exam: Present: normal appearance, EOMI. Absent: scleral icterus, periorbital swelling Neck exam: Present: normal inspection, full ROM Respiratory exam: Present: normal lung sounds bilaterally. Absent: respiratory distress, wheezes, rales, rhonchi, stridor Cardiovascular Exam: Present: regular rate, normal rhythm, normal heart sounds. Absent: systolic murmur, diastolic murmur, rubs, gallop, clicks Extremities exam: Present: pedal edema Neurological exam: Present: alert, oriented X3, CN II-XII intact Psychiatric exam: Present: normal affect, normal mood Skin exam: Present: warm, dry, intact, normal color. Absent: rash Course Vital Signs 06/13/22 06/13/22 06/13/22 18:15 19:00 19:30 Temperature 97.8 F Pulse Rate 100 99 100 Respiratory 18 32 H 26 H Rate Blood Pressure 122/77 123/82 119/98 O2 Sat by Pulse 96 93 L 95 Oximetry 06/13/22 06/13/22 06/13/22 20:00 20:30 21:00 Temperature Pulse Rate 100 101 H 100 Respiratory 28 H 49 H 33 H Rate Blood Pressure 121/77 104/76 123/84 O2 Sat by Pulse 95 92 L 90 L Oximetry Medical Decision Making - Medical Decision Making Was pt. sent in by a medical professional or institution (, PA, [employer], urgent care, hospital, or [place] health care facility...) When possible be specific @ -No Did you speak to anyone other than the patient for history (EMS, parent, family, police, friend...)? What history was obtained from this source @ -No Did you review nursing and triage notes (agree or disagree)? Why? @ -I reviewed and agree with nursing and triage notes Were old charts reviewed (outside hosp., previous admission, EMS record, old EKG, old radiological studies, urgent care reports/EKG's, [place] health care facility records)? Report findings @ -Previous EKG reviewed Differential Diagnosis (chest pain, altered mental status, abdominal pain women, abdominal pain men, vaginal bleeding, weakness, fever, dyspnea, syncope, headache, dizziness, GI bleed, back pain, seizure, CVA, palpatations, mental health, musculoskeletal)? @ -MDM Differential Dyspnea: Coronary syndrome, arrhythmia, tamponade, asthma, COPD, pulmonary embolism, pneumonia, pneumothorax, pulmonary effusion, anaphylaxis, diabetic ketoacidosis, flailed chest, pulmonary contusion, diaphragmatic rupture, anemia, neuromuscula r this is not meant to be an all-inclusive list. EKG interpreted by me (3pts min.). @ -Electronic ventricular pacemaker ventricular rate 100. PA interval 182. QRS 194. QT 449. QTc 506. No acute changes from previous EKG X-rays interpreted by me (1pt min.). @ -Chest x-ray shows moderate right and small left pleural effusions with associated atelectasis and cardiomegaly with pulmonary vascular congestion CT interpreted by me (1pt min.). @ -None done U/S interpreted by me (1pt. min.). @ -None done What testing was considered but not performed or refused? (CT, X-rays, U/S, labs)? Why? @ -None What meds were considered but not given or refused? Why? @ -None Did you discuss the management of the patient with other professionals (professionals i.e. DrKamila, PA, [employer], lab, RT, psych nurse, foster care social worker, custom van converter, teacher, ict customer support officer, therapeutic case manager)? Give summary @ -Discussed with admitting DOM Obi Gonzalez from [facility] Was smoking cessation discussed for >3mins.? @ -No Was critical care preformed (if so, how long)? @ -No Were there social determinants of health that impacted care today? How? (Homelessness, low income, unemployed, alcoholism, drug addiction, transportation, low edu. Level, literacy, decrease access to med. care, intermediate, rehab)? @ -No Was there de-escalation of care discussed even if they declined (Discuss DNR or withdrawal of care, Hospice)? DNR status @ -No What co-morbidities impacted this encounter? (DM, HTN, Smoking, COPD, CAD, Cancer, CVA, ARF, Chemo, Hep., AIDS, mental health diagnosis, sleep apnea, morbid obesity)? @ -CHF Was patient admitted / discharged? Hospital course, mention meds given and route, prescriptions, significant lab abnormalities, going to OR and other pertinent info. @ -Patient is an 87-year-old female with history CHF presenting with chief co mplaint of progressive shortness of breath. Physical examination is unremarkable. Lab work shows BNP is 17,900. Chest x-ray corresponds with CHF exacerbation. BUN and creatinine are mildly elevated but appear within the patient's baseline. Patient is given 40 mg Lasix IV. Case discussed with Obi Gonzalez from [facility] hospitalist group who accepted admission. Patient is agreeable with this plan. I discussed this case with my attending Dr. Portillo Undiagnosed new problem with uncertain prognosis? @ -No Drug Therapy requiring intensive monitoring for toxicity (Heparin, Nitro, Insulin, Cardizem)? @ -No Were any procedures done? @ -No Diagnosis/symptom? @ -Congestive heart failure Acute, or Chronic, or Acute on Chronic? @ -Acute on chronic Uncomplicated (without systemic symptoms) or Complicated (systemic symptoms)? @ -Complicated Side effects of treatment? @ -Hypotension, JUSTIN Exacerbation, Progression, or Severe Exacerbation? @ -Exacerbation Poses a threat to life or bodily function? How? (Chest pain, USA, ME, pneumonia, PE, COPD, DKA, ARF, appy, cholecystitis, CVA, Diverticulitis, Homicidal, Suicidal, threat to staff... and all critical care pts) @ -Yes - Lab Data Result diagrams: 06/13/22 18:37 06/13/22 18:37 Lab Results 06/13/22 06/13/22 06/13/22 Range/Units 18:37 18:37 18:37 WBC 8.2 (3.8-10.6) k/uL RBC 4.97 (3.80-5.40) m/uL Hgb 15.2 (11.4-16.0) gm/dL Hct 45.9 (34.0-46.0) % MCV 92.4 (80.0-100.0) fL MCH 30.7 (25.0-35.0) pg MCHC 33.2 (31.0-37.0) g/dL RDW 14.2 (11.5-15.5) % Plt Count 190 (150-450) k/uL MPV 9.3 Neutrophils % 72 % Lymphocytes % 19 % Monocytes % 5 % Eosinophils % 1 % Basophils % 0 % Neutrophils # 5.9 (1.3-7.7) k/uL Lymphocytes # 1.6 (1.0-4.8) k/uL Monocytes # 0.4 (0-1.0) k/uL Eosinophils # 0.1 (0-0.7) k/uL Basophils # 0.0 (0-0.2) k/uL PT 11.5 (9.0-12.0) sec INR 1.1 (<1.2) APTT 24.0 (22.0-30.0) sec Sodium 141 (137-145) mmol/L Potassium 3.6 (3.5-5.1) mmol/L Chloride 101 (98-107) mmol/L Carbon Dioxide 29 (22-30) mmol/L Anion Gap 11 mmol/L BUN 52 H (7-17) mg/dL Creatinine 1.51 H (0.52-1.04) mg/dL Est GFR (CKD-EPI)AfAm 35 (>60 ml/min/1.73 sqM) Est GFR (CKD-EPI)NonAf 31 (>60 ml/min/1.73 sqM) Glucose 174 H (74-99) mg/dL Plasma Lactic Acid Alex (0.7-2.0) mmol/L Calcium 9.0 (8.4-10.2) mg/dL Magnesium 2.4 H (1.6-2.3) mg/dL Total Bilirubin 1.4 H (0.2-1.3) mg/dL AST 28 (14-36) U/L ALT 23 (4-34) U/L Alkaline Phosphatase 78 (38-126) U/L NT-Pro-B Natriuret Pep pg/mL Total Protein 7.0 (6.3-8.2) g/dL Albumin 4.2 (3.5-5.0) g/dL 06/13/22 06/13/22 Range/Units 18:37 18:37 WBC (3.8-10.6) k/uL RBC (3.80-5.40) m/uL Hgb (11.4-16.0) gm/dL Hct (34.0-46.0) % MCV (80.0-100.0) fL MCH (25.0-35.0) pg MCHC (31.0-37.0) g/dL RDW (11.5-15.5) % Plt Count (150-450) k/uL MPV Neutrophils % % Lymphocytes % % Monocytes % % Eosinophils % % Basophils % % Neutrophils # (1.3-7.7) k/uL Lymphocytes # (1.0-4.8) k/uL Monocytes # (0-1.0) k/uL Eosinophils # (0-0.7) k/uL Basophils # (0-0.2) k/uL PT (9.0-12.0) sec INR (<1.2) APTT (22.0-30.0) sec Sodium (137-145) mmol/L Potassium (3.5-5.1) mmol/L Chloride (98-107) mmol/L Carbon Dioxide (22-30) mmol/L Anion Gap mmol/L BUN (7-17) mg/dL Creatinine (0.52-1.04) mg/dL Est GFR (CKD-EPI)AfAm (>60 ml/min/1.73 sqM) Est GFR (CKD-EPI)NonAf (>60 ml/min/1.73 sqM) Glucose (74-99) mg/dL Plasma Lactic Acid Alex 1.6 (0.7-2.0) mmol/L Calcium (8.4-10.2) mg/dL Magnesium (1.6-2.3) mg/dL Total Bilirubin (0.2-1.3) mg/dL AST (14-36) U/L ALT (4-34) U/L Alkaline Phosphatase (38-126) U/L NT-Pro-B Natriuret Pep 85557 pg/mL Total Protein (6.3-8.2) g/dL Albumin (3.5-5.0) g/dL Disposition Clinical Impression: Congestive heart failure Disposition: ADMITTED IP TO THIS HOSP Condition: Fair Time of Disposition: 20:09
[2022-06-13] MEDS ORDERED: NALOXONE 0.4 MG/ML 1 ML VIAL IV PRN (20:16)
[2022-06-14] MEDS ORDERED: ALBUTEROL NEBULIZED 2.5 MG/3 ML INHALATION PRN
[2022-06-14] MEDS: ALPRAZolam 0.25 MG TAB PO PRN ×2 (00:10→12:42)
[2022-06-14] MEDS: IPRATROPIUM-ALBUTEROL 3 ML NEB INHALATION SCH ×5 (01:10→20:38)
[2022-06-14 06:21] LABS: Glucose,Whole Blood 185 mg/dL (70-110)
[2022-06-14] MEDS: FUROSEMIDE 10 MG/ML 4 ML VIAL IV SCH ×2 (08:41→21:22)
[2022-06-14] MEDS: hydrALAZINE HCL 10 MG TAB PO SCH ×3 (09:08→21:22)
[2022-06-14] MEDS: DAPAGLIFLOZIN PROPANEDIOL 10 MG TABLET PO SCH (09:08)
--- NOTE | 2022-06-14 09:35 | P.GSCN ---
History of Present Illness Consult date: 06/14/22 Reason for Consult: Recurrent right-sided pleural effusion, request for Pleurx catheter placement Requesting physician: Tamara Yeh History of present illness: This is an 87-year-old female patient who follows with Dr. Solomon for primary care and Dr. Thakkar for cardiology. She has a previous medical history of chronic atrial fibrillation on Eliquis for anticoagulation, chronic systolic heart failure and nonischemic cardiomyopathy status post ICD placement in 2007 with upgrade to biventricular in 2016, hypertension, hyperlipidemia, chronic kidney disease stage III, COPD, and type 2 diabetes. She has had multiple admissions in the last year for acute heart failure with shortness of breath. She has had recurrent right-sided pleural effusion with thoracentesis 2 this year so far as well as once last year. Each time the amount of fluid removed has increased, has been nonmalignant, inflammatory. Her last right-sided thoracentesis was completed 05/29/2022 with 2 L of fluid removed. Patient states she feels better for a few days after her thoracentesis, but then her shortness of breath returns. She came back into the emergency room yesterday with similar complaints of shortness of breath. Chest x-ray again reveals right-sided pleural effusion. Consultation was placed by cardiology to cardi othoracic surgery for placement of right-sided Pleurx catheter. Of note, patient's last dose of Eliquis was yesterday. Review of Systems Review of systems was completed and was negative except as noted - Cardiovascular Reports as per HPI, Reports decreased exercise tolerance, Reports dyspnea on exertion, Reports leg edema, Reports orthopnea, Reports shortness of breath Past Medical History Past Medical History: Atrial Fibrillation, Cancer, Heart Failure, Diabetes Mellitus, Hyperlipidemia, Hypertension, Osteoarthritis (OA), Skin Disorder, Vascular Disorder Additional Past Medical History / Comment(s): basal cell skin cancer, rash on face, History of Any Multi-Drug Resistant Organisms: None Reported Past Surgical History: AICD, Appendectomy, Bladder Surgery, Bowel Resection, Cholecystectomy, Heart Catheterization, Hysterectomy, Tonsillectomy, Tubal Ligation Additional Past Surgical History / Comment(s): venogram/fluoroscopy, neema cataracts, Past Anesthesia/Blood Transfusion Reactions: No Reported Reaction Type of Cardiac Device: AICD Device Placement Date:: 2007, upgrade to biventricular in 2015 Past Psychological History: No Psychological Hx Reported Additional Psychological History / Comment(s): Pt resides with her spouse and sometimes their adult son stays with them. She has [facility] palliative care. She has home oxygen which she wears at HS and prn during daytime. She has a glucometer, walker. Spouse drives, does housework. Smoking Status: Never smoker Past Alcohol Use History: None Reported Past Drug Use History: None Reported - Past Family History Father Family Medical History: Cancer Mother Family Medical History: Cancer Sister(s) Family Medical History: Cancer, Deep Vein Thrombosis (DVT) Additional Family Medical History / Comment(s): skin cancer Brother(s) History Unknown: Yes Family Medical History: Cancer Additional Family Medical History / Comment(s): skin cancer Medications and Allergies Home Medications Medication Instructions Recorded Confirmed Type Simvastatin [Zocor] 20 mg PO HS 10/22/15 06/13/22 History Levothyroxine Sodium [Synthroid] 25 mcg PO AC-BRKFST 03/30/18 06/13/22 History Midodrine HCl [ProAmatine] 10 mg PO TID-W/MEALS 06/22/21 06/13/22 History Loperamide HCl [Imodium A-D] 1 mg PO BID 03/10/22 06/13/22 History glipiZIDE 7.5 mg PO BID 03/10/22 06/13/22 History Albuterol Nebulized [Ventolin 2.5 mg INHALATION RT-QID #120 ml 05/14/22 06/13/22 Rx Nebulized] Apixaban [Eliquis] 2.5 mg PO BID #60 tab 05/29/22 06/13/22 Rx Bumetanide [BUMEX] 2 mg PO DAILY #30 tab 05/30/22 06/13/22 Rx Dapagliflozin Propanediol [Farxiga] 10 mg PO DAILY #30 tab 05/30/22 06/13/22 Rx Ipratropium-Albuterol Nebulize 3 ml INHALATION RT-QID 06/13/22 06/13/22 History [Duoneb 0.5 mg-3 mg/3 ml Soln] Allergies Allergy/AdvReac Type Severity Reaction Status Date / Time quinidine Allergy Rash/Hives Verified 06/13/22 20:12 CLEAR PLASTIC TAPE Allergy Rash/Hives Uncoded 06/13/22 20:12 Surgical - Exam Vital Signs Temp Pulse Resp BP Pulse Ox 97.8 F 100 18 122/77 96 06/13/22 18:15 06/13/22 18:15 06/13/22 18:15 06/13/22 18:15 06/13/22 18:15 CONSTITUTIONAL: Awake and alert, appears tired but comfortable, cooperative, no pain, no acute distress EYES: Pupils equal, round, reactive to light, normal ocular movement ENT: Moist mucous membranes without oral lesions present NECK: No masses, no bruits, trachea midline RESPIRATORY: Lungs sounds diminished on the right side. Respirations even, nonlabored. Currently on Ventimask with oxygen saturation 93%. Strong cough CARDIOVASCULAR: S1, S2 present. Regular rate and rhythm. Palpable peripheral pulses bilaterally. No edema present. No calf pain or tenderness noted GASTROINTESTINAL: Abdomen soft, nontender, nondistended without masses or organomegaly noted. There is no rebound or guarding present. Active bowel sounds present 4 quadrants. GENITOURINARY: Deferred INTEGUMENTARY: Skin is warm and dry NEUROLOGIC: Cranial nerves II through XII intact, normal coordination, no obvio us motor or sensory deficits, speech is normal MUSKULOSKELETAL: Able to move all extremities, strength equal bilaterally, normal posture PSYCHIATRIC: Alert and oriented to person place and time, appropriate affect, intact judgment and insight Results - Labs 06/13/22 18:37 06/13/22 18:37 Abnormal Lab Results - Last 24 Hours (Table) 06/13/22 06/14/22 Range/Units 18:37 06:20 BUN 52 H (7-17) mg/dL Creatinine 1.51 H (0.52-1.04) mg/dL Glucose 174 H (74-99) mg/dL POC Glucose (mg/dL) 185 H (70-110) mg/dL Magnesium 2.4 H (1.6-2.3) mg/dL Total Bilirubin 1.4 H (0.2-1.3) mg/dL Diabetes panel 06/13/22 Range/Units 18:37 Sodium 141 (137-145) mmol/L Potassium 3.6 (3.5-5.1) mmol/L Chloride 101 (98-107) mmol/L Carbon Dioxide 29 (22-30) mmol/L BUN 52 H (7-17) mg/dL Creatinine 1.51 H (0.52-1.04) mg/dL Glucose 174 H (74-99) mg/dL Calcium 9.0 (8.4-10.2) mg/dL AST 28 (14-36) U/L ALT 23 (4-34) U/L Alkaline Phosphatase 78 (38-126) U/L Total Protein 7.0 (6.3-8.2) g/dL Albumin 4.2 (3.5-5.0) g/dL Calcium panel 06/13/22 Range/Units 18:37 Calcium 9.0 (8.4-10.2) mg/dL Albumin 4.2 (3.5-5.0) g/dL Pituitary panel 06/13/22 Range/Units 18:37 Sodium 141 (137-145) mmol/L Potassium 3.6 (3.5-5.1) mmol/L Chloride 101 (98-107) mmol/L Carbon Dioxide 29 (22-30) mmol/L BUN 52 H (7-17) mg/dL Creatinine 1.51 H (0.52-1.04) mg/dL Glucose 174 H (74-99) mg/dL Calcium 9.0 (8.4-10.2) mg/dL Adrenal panel 06/13/22 Range/Units 18:37 Sodium 141 (137-145) mmol/L Potassium 3.6 (3.5-5.1) mmol/L Chloride 101 (98-107) mmol/L Carbon Dioxide 29 (22-30) mmol/L BUN 52 H (7-17) mg/dL Creatinine 1.51 H (0.52-1.04) mg/dL Glucose 174 H (74-99) mg/dL Calcium 9.0 (8.4-10.2) mg/dL Total Bilirubin 1.4 H (0.2-1.3) mg/dL AST 28 (14-36) U/L ALT 23 (4-34) U/L Alkaline Phosphatase 78 (38-126) U/L Total Protein 7.0 (6.3-8.2) g/dL Albumin 4.2 (3.5-5.0) g/dL - Imaging Chest x-ray: report reviewed, image reviewed EKG: image reviewed Assessment and Plan Assessment: Recurrent right-sided pleural effusion, status post thoracentesis, last right- sided thoracentesis 05/29/22 with removal of 2 L Shortness of breath, multifactorial Chronic atrial fibrillation on Eliquis for anticoagulation, last dose Eliquis 06/13/22 Acute on chronic systolic heart failure, EF 20% on most recent echocardiogram, BNP on admission 17,900 Nonischemic cardiomyopathy status post ICD placement in 2007 with upgrade to biventricular in 2016 Severe mitral regurgitation and most recent echocardiogram Hypertension Hyperlipidemia Chronic kidney disease stage III COPD Type 2 diabetes Plan: The patient was seen and examined at the bedside. Chart/diagnostics were reviewed. The case will be discussed in detail with Dr. Zapien. The patient's shortness of breath is likely multifactorial due to recurrent right-sided effusion as well as heart failure, COPD, atrial fibrillation. Continue to hold Eliquis, will make patient NPO after midnight. If unable to place Pleurx catheter tomorrow will feed patient in the morning. The usual perioperative course of Pleurx catheter placement as well as care thereafter was discussed with the patient, she is agreeable if Pleurx catheter placement is the recommendation. Patient states she just wants to feel better and to stop coming into the hospital. Continue to diurese patient, increase activity as tolerated, wean oxygen as tolerated. Medical management of other comorbidities per internal medicine, cardiology. More recommendations to follow. I have personally seen and examined the patient, performed the documentation and the assessment and plan as written. Number of minutes spent on the visit: 30. Vonnie Blanca, [email or web address]
--- NOTE | 2022-06-14 10:19 | P.CRDCN ---
History of Present Illness Consult date: 06/14/22 History of present illness: HISTORY OF PRESENT ILLNESS: This is a 87-year-old female with a past medical history significant for hypertension, hyperlipidemia, diabetes, congestive heart failure, valvular heart disease, biventricular AICD secondary to complete heart block, chronic kidney disease, pleural effusions with history of thoracentesis, and nonischemic cardiomyopathy. Patient follows in the office with Dr. Thakkar. We have been asked to see the patient in consultation for congestive heart failure. Patient examined at the bedside. Patient presented to the hospital with a chief complaint of shortness of breath. She was found to be in acute heart failure and received IV Lasix in the emergency room. It is noted that the patient has had frequent admissions to the hospital secondary to congestive heart failure. Plans were discussed with Dr. Thakkar and Dr. Zapien for outpatient Pleurx catheter insertion, however patient was unable to have this performed on an outpatient basis as her symptoms progressed and she came to the emergency room for further evaluation. The patient was just discharged from the hospital on 05/30/2022. She was admitted at that time for congestive heart failure. She underwent thoracentesis on 05/29/2022 by pulmonary medicine with removal of 2 L of fluid. * EKG reveals ventricular paced rhythm * Chest xray moderate right and small left pleural effusions with associated atelectasis. Cardiomegaly with pulmonary vascular congestion. * Laboratory data: WBC 8.2. Hemoglobin 15.2. Platelet count 190. Sodium 141. Potassium 3.6. BUN 52. Creatinine 1.51. Magnesium 2.4. ProBNP 17,900. * Current home cardiac medications include Eliquis 2.5mg BID, Bumex 2 mg daily, simvastatin 20 mg at night, Midodrine 5mg BID, and Farxiga 10mg daily * Most recent echocardiogram obtained in June 2021 revealing ejection fraction 20-25%, moderate to severe MR, trace to mild aortic regurgitation, mild tricuspid regurgitation * Cardiac catheterization history: 2007 revealing normal coronary arteries REVIEW OF SYSTEMS: At the time of my exam: CONSTITUTIONAL: Denies fever or chills. HEENT: Denies blurred vision, vision changes, or eye pain. Denies hemoptysis CARDIOVASCULAR: Denies chest pain. Denies orthopnea. Denies PND. Denies palpitations RESPIRATORY: Denies shortness of breath. GASTROINTESTINAL: Denies abdominal pain. Denies nausea or vomiting. HEMATOLOGIC: Denies bleeding disorders. GENITOURINARY: Denies any blood in urine. SKIN: Denies pruitis. Denies rash. PHYSICAL EXAM: VITAL SIGNS: Reviewed. GENERAL: Well-developed in no acute distress. HEENT: Head is normocephalic. Pupils are equal, round. Sclerae anicteric. Mucous membranes of the mouth are moist. Neck supple. No JVD or thyromegaly LUNGS: Respirations even and unlabored. Lungs diminished. Right worse than left. HEART: Regular rate and rhythm. S1 and S2 heard. Systolic murmur noted ABDOMEN: Soft. Nondistended. Nontender. EXTREMITIES: Normal range of motion. No clubbing or cyanosis. Peripheral pulses intact. No lower extremity edema NEUROLOGIC: Awake and alert. Oriented x 3. ASSESSMENT: Shortness of breath Acute on chronic heart failure with reduced EF, EF 20-25% Recurrent bilateral pleural effusions with history of multiple thoracentesis in the past, most recently May 2022 Nonischemic cardiomyopathy Normal coronary arteries, per cardiac catheterization in 2007 Permanent atrial fibrillation Chronic kidney disease Hypertension Hyperlipidemia Diabetes History of complete heart block History of biventricular AICD PLAN: No need to repeat echocardiogram Begin Lasix 40 mg IV every 12 hours Daily weights, accurate I&O, and monitoring of kidney function Dr. Thakkar discussed hospice versus ongoing treatment with insertion of pleurx catheter. Patient would like to proceed with insertion of Pleurx catheter. She states if her symptoms continue to progress, then she will consider hospice at that time. Will consult Dr. Zapien for Pleurx catheter insertion Hold [facility]. Patient's last dose was yesterday evening. Discontinue statin therapy and Midodrine Begin hydralazine 10 mg 3 times a day. Further recommendations pending patient's course Nurse practitioner note has been reviewed by physician. Signing provider agrees with the documented findings, assessment, and plan of care. Past Medical History Past Medical History: Atrial Fibrillation, Cancer, Heart Failure, Diabetes Mellitus, Hyperlipidemia, Hypertension, Osteoarthritis (OA), Skin Disorder, Vascular Disorder Additional Past Medical History / Comment(s): basal cell skin cancer, rash on face, History of Any Multi-Drug Resistant Organisms: None Reported Past Surgical History: AICD, Appendectomy, Bladder Surgery, Bowel Resection, Cholecystectomy, Heart Catheterization, Hysterectomy, Tonsillectomy, Tubal Ligation Additional Past Surgical History / Comment(s): venogram/fluoroscopy, neema cataracts, Past Anesthesia/Blood Transfusion Reactions: No Reported Reaction Type of Cardiac Device: AICD Device Placement Date:: 2007, upgrade to biventricular in 2015 Past Psychological History: No Psychological Hx Reported Additional Psychological History / Comment(s): Pt resides with her spouse and sometimes their adult son stays with them. She has [facility] palliative care. She has home oxygen which she wears at HS and prn during daytime. She has a glucome ter, walker. Spouse drives, does housework. Smoking Status: Never smoker Past Alcohol Use History: None Reported Past Drug Use History: None Reported - Past Family History Father Family Medical History: Cancer Mother Family Medical History: Cancer Sister(s) Family Medical History: Cancer, Deep Vein Thrombosis (DVT) Additional Family Medical History / Comment(s): skin cancer Brother(s) History Unknown: Yes Family Medical History: Cancer Additional Family Medical History / Comment(s): skin cancer Medications and Allergies Home Medications Medication Instructions Recorded Confirmed Type Simvastatin [Zocor] 20 mg PO HS 10/22/15 06/13/22 History Levothyroxine Sodium [Synthroid] 25 mcg PO AC-BRKFST 03/30/18 06/13/22 History Midodrine HCl [ProAmatine] 10 mg PO TID-W/MEALS 06/22/21 06/13/22 History Loperamide HCl [Imodium A-D] 1 mg PO BID 03/10/22 06/13/22 History glipiZIDE 7.5 mg PO BID 03/10/22 06/13/22 History Albuterol Nebulized [Ventolin 2.5 mg INHALATION RT-QID #120 ml 05/14/22 06/13/22 Rx Nebulized] Apixaban [Eliquis] 2.5 mg PO BID #60 tab 05/29/22 06/13/22 Rx Bumetanide [BUMEX] 2 mg PO DAILY #30 tab 05/30/22 06/13/22 Rx Dapagliflozin Propanediol [Farxiga] 10 mg PO DAILY #30 tab 05/30/22 06/13/22 Rx Ipratropium-Albuterol Nebulize 3 ml INHALATION RT-QID 05/07/23 05/07/23 History [Duoneb 0.5 mg-3 mg/3 ml Soln] Allergies Allergy/AdvReac Type Severity Reaction Status Date / Time quinidine Allergy Rash/Hives Verified 06/13/22 20:12 CLEAR PLASTIC TAPE Allergy Rash/Hives Uncoded 06/13/22 20:12 Physical Exam Vitals: Vital Signs Temp Pulse Pulse Resp BP BP Pulse Ox 06/14/22 09:18 90 L 06/14/22 08:00 101 H 20 06/14/22 07:00 97 F L 101 H 20 122/84 93 L 06/14/22 06:32 99 06/14/22 06:23 100 06/14/22 01:18 99 06/14/22 00:33 98.1 F 99 28 H 111/75 95 06/13/22 23:21 97.7 F 100 26 H 132/82 95 06/13/22 23:00 100 20 120/74 94 L 06/13/22 22:30 99 20 114/73 94 L 06/13/22 22:00 100 20 95 06/13/22 21:30 100 20 116/81 91 L 06/13/22 21:00 100 33 H 123/84 90 L 06/13/22 20:30 101 H 49 H 104/76 92 L 06/13/22 20:00 100 28 H 121/77 95 06/13/22 19:30 100 26 H 119/98 95 06/13/22 19:00 99 32 H 123/82 93 L 06/13/22 18:15 97.8 F 100 18 122/77 96 FiO2 06/14/22 09:18 30 06/14/22 08:00 06/14/22 07:00 06/14/22 06:32 06/14/22 06:23 06/14/22 01:18 06/14/22 00:33 06/13/22 23:21 06/13/22 23:00 06/13/22 22:30 06/13/22 22:00 06/13/22 21:30 06/13/22 21:00 06/13/22 20:30 06/13/22 20:00 06/13/22 19:30 06/13/22 19:00 06/13/22 18:15 Intake and Output 06/13/22 06/14/22 06/14/22 22:59 06:59 14:59 Intake Total 90 Balance 90 Intake: Oral 90 Other: # Voids 3 1 # Bowel Movements 1 Weight 60.328 kg Results 06/13/22 18:37 06/13/22 18:37 Cardiac Enzymes 06/13/22 Range/Units 18:37 AST 28 (14-36) U/L Coagulation 06/13/22 Range/Units 18:37 PT 11.5 (9.0-12.0) sec APTT 24.0 (22.0-30.0) sec CBC 06/13/22 Range/Units 18:37 WBC 8.2 (3.8-10.6) k/uL RBC 4.97 (3.80-5.40) m/uL Hgb 15.2 (11.4-16.0) gm/dL Hct 45.9 (34.0-46.0) % Plt Count 190 (150-450) k/uL Comprehensive Metabolic Panel 06/13/22 Range/Units 18:37 Sodium 141 (137-145) mmol/L Potassium 3.6 (3.5-5.1) mmol/L Chloride 101 (98-107) mmol/L Carbon Dioxide 29 (22-30) mmol/L BUN 52 H (7-17) mg/dL Creatinine 1.51 H (0.52-1.04) mg/dL Glucose 174 H (74-99) mg/dL Calcium 9.0 (8.4-10.2) mg/dL AST 28 (14-36) U/L ALT 23 (4-34) U/L Alkaline Phosphatase 78 (38-126) U/L Total Protein 7.0 (6.3-8.2) g/dL Albumin 4.2 (3.5-5.0) g/dL Current Medications Generic Name Dose Route Start Last Admin Trade Name Freq PRN Reason Stop Dose Admin Albuterol Sulfate 2.5 mg 06/14/22 00:00 Albuterol Nebulized 2.5 Mg/3 Ml INHALATION RT-QID PRN Shortness Of Breath Or Wheezing Albuterol/Ipratropium 3 ml 06/14/22 00:00 06/14/22 06:20 Ipratropium-Albuterol 3 Ml Neb INHALATION 3 ml RT-QID VITO Administration Alprazolam 0.25 mg 06/13/22 23:58 06/14/22 00:10 Alprazolam 0.25 Mg Tab PO 0.25 mg BID PRN Administration Anxiety Atorvastatin Calcium 10 mg 06/14/22 21:00 Atorvastatin 10 Mg Tab PO HS VITO Dapagliflozin 10 mg 06/14/22 09:00 06/14/22 09:08 Dapagliflozin Propanediol 10 Mg Tablet PO 10 mg DAILY VITO Administration Furosemide 40 mg 06/14/22 09:00 06/14/22 08:41 Furosemide 10 Mg/Ml 4 Ml Vial IV 40 mg Q12HR VITO Administration Hydralazine HCl 10 mg 06/14/22 09:00 06/14/22 09:08 Hydralazine Hcl 10 Mg Tab PO 10 mg TID VITO Administration Naloxone HCl 0.2 mg 06/13/22 20:16 Naloxone 0.4 Mg/Ml 1 Ml Vial IV Q2M PRN Opioid Reversal Intake and Output 06/13/22 06/14/22 06/14/22 22:59 06:59 14:59 Intake Total 90 Balance 90 Intake: Oral 90 Other: # Voids 3 1 # Bowel Movements 1 Weight 60.328 kg 06/13/22 18:37 06/13/22 18:37
[2022-06-14 11:17] LABS: Appearance,Urine Clear (Clear); Bilirubin,Urine Negative (Negative); Blood,Urine Trace (Negative); Color,Urine Light Yellow; Glucose,Urine (UA) 4+ (Negative); Ketones,Urine Negative (Negative); Leukocyte Esterase,Urine Moderate (Negative); Nitrite,Urine Negative (Negative); PH, Urine 5.5 (5.0-8.0); Protein,Urine Negative (Negative); RBC,Urine 3 /hpf (0-5); Specific Gravity,Urine 1.009 (1.001-1.035); Squamous Epithelial Cell,Urine <1 /hpf (0-4); Urobilinogen,Urine <2.0 mg/dL (<2.0); WBC,Urine 6 /hpf (0-5)
[2022-06-14 12:04] LABS: Glucose,Whole Blood 199 mg/dL (70-110)
[2022-06-14] MEDS ORDERED: MIDODRINE 5 MG TAB PO SCH (12:30)
--- NOTE | 2022-06-14 13:45 | P.CNPUL ---
History of Present Illness Consult date: 06/14/22 Reason for consult: pleural effusion History of present illness: 87-year-old. Patient, hospitalized because of shortness of breath. The patient has severe Cardiomyopathy which is on a nonischemic in nature, and the patient has had multiple breast physician for decompensated CHF and pleural effusion noted the patient has a left ventricle ejection fraction of around 20-25% based on an earlier echocardiogram. At same time, the patient has developed recurrent right-sided pleural effusion and she has been requiring several and multiple thoracentesis. She was drained back in April 2022. During her last hospitalization in May 2022, drained the right-sided pleural effusion and I aspirated approximately 2 L of pleural fluid and the fluid was a candidate in nature consistent with CHF. The patient was given diuretics. She was taken off the warfarin and she was placed on Eliquis. She is known to have paroxysmal atrial fibrillation. She is also known to have hypertension, diabetes mellitus, hyperlipidemia and she has a pacer/AICD in place for underlying complete heart block. She also has paroxysmal atrial fibrillation. The patient was hostile is again and for now the plan is to consider a Pleurx catheter insertion for this patient in setting of severe cardiomyopathy, recurrent right-sided pleural effusion and symptom control. His EKG currently is a paced rhythm. The chest x-ray shows a moderate-sized right-sided pleural effusion and small left-sided pleural effusion. She is currently on 6 L of O2 nasal cannula with a pulse ox of 96%. Review of Systems CONSTITUTIONAL: No fever, no malaise, no fatigue. HEENT: No recent visual problems or hearing problems. Denied any sore throat. CARDIOVASCULAR: No orthopnea, PND, no palpitations, no syncope. The patient has exertional dyspnea and orthopnea secondary to CHF. He of any chest pain for now. PULMONARY: No chest wall tenderness, no hemoptysis. No cough or sputum production. GASTROINTESTINAL: No diarrhea, no nausea, no vomiting, no abdominal pain. Normoactive bowel sounds. NEUROLOGICAL: No headaches, no weakness, no numbness. HEMATOLOGICAL: Denies any bleeding or petechiae. GENITOURINARY: Denies any burning micturition, frequency, or urgency. MUSCULOSKELETAL/RHEUMATOLOGICAL: Denies any joint pain, swelling, or any muscle pain. ENDOCRINE: Denies any polyuria or polydipsia. Past Medical History Past Medical History: Atrial Fibrillation, Cancer, Heart Failure, Diabetes Mellitus, Hyperlipidemia, Hypertension, Osteoarthritis (OA), Skin Disorder, Vascular Disorder Additional Past Medical History / Comment(s): basal cell skin cancer, rash on face, History of Any Multi-Drug Resistant Organisms: None Reported Past Surgical History: AICD, Appendectomy, Bladder Surgery, Bowel Resection, Cholecystectomy, Heart Catheterization, Hysterectomy, Tonsillectomy, Tubal Ligation Additional Past Surgical History / Comment(s): venogram/fluoroscopy, neema cataracts, Past Anesthesia/Blood Transfusion Reactions: No Reported Reaction Type of Cardiac Device: AICD Device Placement Date:: 2007, upgrade to biventricular in 2016 Past Psychological History: No Psychological Hx Reported Additional Psychological History / Comment(s): Pt resides with her spouse and sometimes their adult son stays with them. She has [facility] palliative care. She has home oxygen which she wears at HS and prn during daytime. She has a glucometer, walker. Spouse drives, does housework. Smoking Status: Never smoker Past Alcohol Use History: None Reported Past Drug Use History: None Reported - Past Family History Father Family Medical History: Cancer Mother Family Medical History: Cancer Sister(s) Family Medical History: Cancer, Deep Vein Thrombosis (DVT) Additional Family Medical History / Comment(s): skin cancer Brother(s) History Unknown: Yes Family Medical History: Cancer Additional Family Medical History / Comment(s): skin cancer Medications and Allergies Home Medications Medication Instructions Recorded Confirmed Type Simvastatin [Zocor] 20 mg PO HS 10/22/15 06/13/22 History Levothyroxine Sodium [Synthroid] 25 mcg PO AC-BRKFST 03/30/18 06/13/22 History Midodrine HCl [ProAmatine] 10 mg PO TID-W/MEALS 06/22/21 06/13/22 History Loperamide HCl [Imodium A-D] 1 mg PO BID 03/10/22 06/13/22 History glipiZIDE 7.5 mg PO BID 03/10/22 06/13/22 History Albuterol Nebulized [Ventolin 2.5 mg INHALATION RT-QID #120 ml 05/14/22 06/13/22 Rx Nebulized] Apixaban [Eliquis] 2.5 mg PO BID #60 tab 05/29/22 06/13/22 Rx Bumetanide [BUMEX] 2 mg PO DAILY #30 tab 05/30/22 06/13/22 Rx Dapagliflozin Propanediol [Farxiga] 10 mg PO DAILY #30 tab 05/30/22 06/13/22 Rx Ipratropium-Albuterol Nebulize 3 ml INHALATION RT-QID 06/13/22 06/13/22 History [Duoneb 0.5 mg-3 mg/3 ml Soln] Allergies Allergy/AdvReac Type Severity Reaction Status Date / Time quinidine Allergy Rash/Hives Verified 06/13/22 20:12 CLEAR PLASTIC TAPE Allergy Rash/Hives Uncoded 06/13/22 20:12 Physical Exam Vitals: Vital Signs Temp Pulse Pulse Resp BP BP Pulse Ox 06/14/22 12:37 98 96 06/14/22 12:20 98 06/14/22 09:18 90 L 06/14/22 08:00 101 H 20 06/14/22 07:00 97 F L 101 H 20 122/84 93 L 06/14/22 06:32 99 06/14/22 06:23 100 06/14/22 01:18 99 06/14/22 00:33 98.1 F 99 28 H 111/75 95 06/13/22 23:21 97.7 F 100 26 H 132/82 95 06/13/22 23:00 100 20 120/74 94 L 06/13/22 22:30 99 20 114/73 94 L 06/13/22 22:00 100 20 95 06/13/22 21:30 100 20 116/81 91 L 06/13/22 21:00 100 33 H 123/84 90 L 06/13/22 20:30 101 H 49 H 104/76 92 L 06/13/22 20:00 100 28 H 121/77 95 06/13/22 19:30 100 26 H 119/98 95 06/13/22 19:00 99 32 H 123/82 93 L 06/13/22 18:15 97.8 F 100 18 122/77 96 FiO2 06/14/22 12:37 06/14/22 12:20 06/14/22 09:18 30 06/14/22 08:00 06/14/22 07:00 06/14/22 06:32 06/14/22 06:23 06/14/22 01:18 06/14/22 00:33 06/13/22 23:21 06/13/22 23:00 06/13/22 22:30 06/13/22 22:00 06/13/22 21:30 06/13/22 21:00 06/13/22 20:30 06/13/22 20:00 06/13/22 19:30 06/13/22 19:00 06/13/22 18:15 Intake and Output 06/13/22 06/14/22 06/14/22 22:59 06:59 14:59 Intake Total 210 Balance 210 Intake: Oral 210 Other: # Voids 3 1 # Bowel Movements 1 Weight 60.328 kg Physical Exam: Revealed 86-year-old female in no distress, on 6 L O2 nasal cannula with a pulse ox of 95%. Head: Atraumatic, normocephalic HEENT:[Neck is supple.] [No neck masses.] [No thyromegaly.] Positive JVD. Chest: Symmetrical chest expansion, diminished breath sounds at the right base with dullness.. And the patient also dullness to percussion. Cardiac Exam: Irregular irregular rhythm. [Normal S1 and S2, no S3 gallop, 3/6 systolic murmur throughout the precordium mostly at the left lower sternal border Abdomen: [Soft, nontender, no megaly, no rebound, no guarding, normal bowel sounds.] Extremities: [No clubbing, no edema, no cyanosis.] Neurological Exam: Alert oriented 3 focal deficit Psychiatric: Normal mood affect and normal mental status examination. Skin: No rashes [place] skeletal: No deformities and no limitation in range of motion Results - Laboratory Findings CBC and BMP: 06/13/22 18:37 06/13/22 18:37 PT/INR, D-dimer PT 11.5 sec (9.0-12.0) 06/13/22 18:37 INR 1.1 (<1.2) 06/13/22 18:37 Abnormal lab findings: Abnormal Labs 06/13/22 06/14/22 06/14/22 18:37 06:20 10:59 BUN 52 H Creatinine 1.51 H Glucose 174 H POC Glucose (mg/dL) 185 H Magnesium 2.4 H Total Bilirubin 1.4 H Urine Glucose (UA) 4+ H Urine Blood Trace H Ur Leukocyte Esterase Moderate H Urine WBC 6 H 06/14/22 11:57 BUN Creatinine Glucose POC Glucose (mg/dL) 199 H Magnesium Total Bilirubin Urine Glucose (UA) Urine Blood Ur Leukocyte Esterase Urine WBC - Diagnostic Findings Chest x-ray: image reviewed Assessment and Plan Plan: Recurrent moderate to large right-sided pleural effusion. Last thoracentesis was performed on 05/29/2022 and the fluid was a transudate, consistent with CHF and negative cytology. Acute on chronic shortness of breath due to decompensated heart failure, and there is obvious worsening right-sided pleural effusion Acute hypoxic respiratory failure currently on 6 L of O2 nasal cannula Chronic bilateral pleural effusion worse on the right, previous thoracentesis indicating a transudate, the last thoracentesis was done in April 2022. Chronic systolic congestive heart failure, known to have ejection fraction of 20-25% and previous history of biventricular AICD placement. Bilateral pleural effusions consistent with congestive heart failure, no need for thoracentesis, continue medical treatment for now. Severe cardiomyopathy and LV dysfunction Chronic atrial fibrillation, patient is currently on Eliquis Severe mitral valve regurgitation Type 2 diabetes Questionable underlying COPD Degenerative joint disease History of basal cell carcinoma/skin. History of pacer/AICD placement Plan This is a transudative effusion. A Pleurx catheter can be considered for symptomatic relief and this has a variable success based on the literature available or transudative effusions. Nevertheless, it may be worthwhile considering the catheter insertion for symptomatic relief. We'll consult cardiothoracic surgery. We'll continue to follow. Hold Eliquis for now.
--- NOTE | 2022-06-14 13:54 | P.HPIM ---
History of Present Illness H&P Date: 06/14/22 History of present illness; patient is a 87-year-old female with a past medical history significant for hypertension, hyperlipidemia, diabetes, congestive heart failure, valvular heart disease, biventricular AICD secondary to complete heart block, chronic kidney disease, pleural effusions with history of thoracentesis, and nonischemic cardiomyopathy who presented to the hospital with a chief complaint of shortness of breath . Patient multiple admissions the last few months for for CHF exacerbations with pleural effusions. Patient has been noticing increased shortness of breath for the last few days. Patient denies any fever or chills. Patient also was complaining of swelling of lower extremities. Denied any chest pain Chest xray moderate right and small left pleural effusions with associated atelectasis. Cardiomegaly with pulmonary vascular congestion. Laboratory data: WBC 8.2. Hemoglobin 15.2. Platelet count 190. Sodium 141. Potassium 3.6. BUN 52. Creatinine 1.51. Magnesium 2.4. ProBNP 17,900. Patient was admitted to internal medicine for further evaluation and treatment REVIEW OF SYSTEMS: CONSTITUTIONAL: No fever, no malaise, no fatigue. HEENT: No recent visual problems or hearing problems. Denied any sore throat. CARDIOVASCULAR: As mentioned in HPI PULMONARY: As mentioned in HPI GASTROINTESTINAL: No diarrhea, no nausea, no vomiting, no abdominal pain. NEUROLOGICAL: No headaches, no weakness, no numbness. HEMATOLOGICAL: Denies any bleeding or petechiae. GENITOURINARY: Denies any burning micturition, frequency, or urgency. MUSCULOSKELETAL/RHEUMATOLOGICAL: Denies any joint pain, swelling, or any muscle pain. ENDOCRINE: Denies any polyuria or polydipsia. The rest of the 14-point review of systems is negative. PHYSICAL EXAMINATION: GENERAL: The patient is alert and oriented x3, not in any acute distress. Chronically ill-looking. Tachypneic HEENT: Pupils are round and equally reacting to light. EOMI. No scleral icterus. No conjunctival pallor. Normocephalic, atraumatic. No pharyngeal erythema. No thyromegaly. CARDIOVASCULAR: S1 and S2 present. No murmurs, rubs, or gallops. PULMONARY: Tachypneic, diminished breath sounds at bases bilaterally, expiratory wheeze audible ABDOMEN: Soft, nontender, nondistended, normoactive bowel sounds. No palpable organomegaly. MUSCULOSKELETAL: No joint swelling or deformity. EXTREMITIES: No cyanosis, clubbing, or pedal edema. NEUROLOGICAL: Gross neurological examination did not reveal any focal deficits. SKIN: No rashes. Assessment and plan Recurrent right-sided pleural effusion, status post thoracentesis, last right- sided thoracentesis 05/29/22 with removal of 2 L Shortness of breath, multifactorial Chronic atrial fibrillation on Eliquis for anticoagulation, last dose Eliquis 06/13/22 Acute on chronic systolic heart failure, EF 20% on most recent echocardiogram, BNP on admission 17,900 Nonischemic cardiomyopathy status post ICD placement in 2007 with upgrade to biventricular in 2016 Severe mitral regurgitation and most recent echocardiogram Hypertension Hyperlipidemia Chronic kidney disease stage III COPD Type 2 diabetes Plan; Monitor CBC Monitor CMP Telemetry monitoring Strict I's and O's Daily weights Continue IV Lasix 40 mg Twice a day Resume home meds Cardiology consulted Pulmonology consulted CT surgery consulted for pleurax catheter placement Past Medical History Past Medical History: Atrial Fibrillation, Cancer, Heart Failure, Diabetes Alona litus, Hyperlipidemia, Hypertension, Osteoarthritis (OA), Skin Disorder, Vascular Disorder Additional Past Medical History / Comment(s): basal cell skin cancer, rash on face, History of Any Multi-Drug Resistant Organisms: None Reported Past Surgical History: AICD, Appendectomy, Bladder Surgery, Bowel Resection, Cholecystectomy, Heart Catheterization, Hysterectomy, Tonsillectomy, Tubal Ligation Additional Past Surgical History / Comment(s): venogram/fluoroscopy, neema cataracts, Past Anesthesia/Blood Transfusion Reactions: No Reported Reaction Type of Cardiac Device: AICD Device Placement Date:: 2007, upgrade to biventricular in 2016 Past Psychological History: No Psychological Hx Reported Additional Psychological History / Comment(s): Pt resides with her spouse and s ometimes their adult son stays with them. She has [facility] palliative care. She has home oxygen which she wears at HS and prn during daytime. She has a glucometer, walker. Spouse drives, does housework. Smoking Status: Never smoker Past Alcohol Use History: None Reported Past Drug Use History: None Reported - Past Family History Father Family Medical History: Cancer Mother Family Medical History: Cancer Sister(s) Family Medical History: Cancer, Deep Vein Thrombosis (DVT) Additional Family Medical History / Comment(s): skin cancer Brother(s) History Unknown: Yes Family Medical History: Cancer Additional Family Medical History / Comment(s): skin cancer Medications and Allergies Home Medications Medication Instructions Recorded Confirmed Type RX: Simvastatin [Zocor] 20 mg PO HS 10/22/15 06/13/22 History RX: Levothyroxine Sodium 25 mcg PO AC-BRKFST 03/30/18 06/13/22 History [Synthroid] RX: Midodrine HCl [ProAmatine] 10 mg PO TID-W/MEALS 06/22/21 06/13/22 History RX: Loperamide HCl [Imodium A-D] 1 mg PO BID 03/10/22 06/13/22 History RX: glipiZIDE 7.5 mg PO BID 03/10/22 06/13/22 History RX: Albuterol Nebulized [Ventolin 2.5 mg INHALATION RT-QID #120 ml 05/14/22 06/13/22 Rx Nebulized] RX: Apixaban [Eliquis] 2.5 mg PO BID #60 tab 05/29/22 06/13/22 Rx RX: Bumetanide [BUMEX] 2 mg PO DAILY #30 tab 05/30/22 06/13/22 Rx RX: Dapagliflozin Propanediol 10 mg PO DAILY #30 tab 05/30/22 06/13/22 Rx [Farxiga] Ipratropium-Albuterol Nebulize 3 ml INHALATION RT-QID 06/13/22 06/13/22 History [Duoneb 0.5 mg-3 mg/3 ml Soln] Allergies Allergy/AdvReac Type Severity Reaction Status Date / Time quinidine Allergy Rash/Hives Verified 06/13/22 20:12 CLEAR PLASTIC TAPE Allergy Rash/Hives Uncoded 06/13/22 20:12 Physical Exam Vitals: Vital Signs Temp Pulse Pulse Resp BP BP Pulse Ox 06/14/22 09:18 90 L 06/14/22 08:00 101 H 20 06/14/22 07:00 97 F L 101 H 20 122/84 93 L 06/14/22 06:32 99 06/14/22 06:23 100 06/14/22 01:18 99 06/14/22 00:33 98.1 F 99 28 H 111/75 95 06/13/22 23:21 97.7 F 100 26 H 132/82 95 06/13/22 23:00 100 20 120/74 94 L 06/13/22 22:30 99 20 114/73 94 L 06/13/22 22:00 100 20 95 06/13/22 21:30 100 20 116/81 91 L 06/13/22 21:00 100 33 H 123/84 90 L 06/13/22 20:30 101 H 49 H 104/76 92 L 06/13/22 20:00 100 28 H 121/77 95 06/13/22 19:30 100 26 H 119/98 95 06/13/22 19:00 99 32 H 123/82 93 L 06/13/22 18:15 97.8 F 100 18 122/77 96 FiO2 06/14/22 09:18 30 06/14/22 08:00 06/14/22 07:00 06/14/22 06:32 06/14/22 06:23 06/14/22 01:18 06/14/22 00:33 06/13/22 23:21 06/13/22 23:00 06/13/22 22:30 06/13/22 22:00 06/13/22 21:30 06/13/22 21:00 06/13/22 20:30 06/13/22 20:00 06/13/22 19:30 06/13/22 19:00 06/13/22 18:15 Intake and Output 06/13/22 06/14/22 06/14/22 22:59 06:59 14:59 Intake Total 90 Balance 90 Intake: Oral 90 Other: # Voids 3 1 # Bowel Movements 1 Weight 60.328 kg Results CBC & Chem 7: 06/13/22 18:37 06/13/22 18:37 Labs: Abnormal Lab Results - Last 24 Hours (Table) 06/13/22 06/14/22 Range/Units 18:37 06:20 BUN 52 H (7-17) mg/dL Creatinine 1.51 H (0.52-1.04) mg/dL Glucose 174 H (74-99) mg/dL POC Glucose (mg/dL) 185 H (70-110) mg/dL Magnesium 2.4 H (1.6-2.3) mg/dL Total Bilirubin 1.4 H (0.2-1.3) mg/dL Thrombosis Risk Factor Assmnt - Choose All That Apply Any of the Below Risk Factors Present?: Yes Each Factor Represents 1 point: Swollen legs (current) Other Risk Factors: Yes Each Risk Factor Represents 3 Points: Age 75 years or older Other congenital or acquired thrombophilia - If yes, enter type in comment: No Thrombosis Risk Factor Assessment Total Risk Factor Score: 4 Thrombosis Risk Factor Assessment Level: Moderate Risk
[2022-06-14 16:54] LABS: Glucose,Whole Blood 263 mg/dL (70-110)
[2022-06-14] MEDS ORDERED: DEXTROSE 50% SYRINGE 50 ML IVP PRN ×2 (17:29)
[2022-06-14] MEDS: INSULIN ASPART (NovoLOG) 100 UNIT/ML VIAL SQ SCH ×3 (17:47→21:33)
[2022-06-14] MEDS ORDERED: TEMAZEPAM 7.5 MG CAP PO PRN (21:19)
[2022-06-14] MEDS: ATORVASTATIN 10 MG TAB PO SCH (21:22)
[2022-06-14] MEDS: INSULIN DETEMIR (LEVEMIR) 100 UNIT/ML SYR SQ SCH (21:33)
[2022-06-15] MEDS: LEVOTHYROXINE 25 MCG TAB PO SCH (05:32)
[2022-06-15 05:36] LABS: Glucose,Whole Blood 168 mg/dL (70-110)
[2022-06-15] MEDS: INSULIN ASPART (NovoLOG) 100 UNIT/ML VIAL SQ SCH ×7 (05:38→20:17)
--- NOTE | 2022-06-15 07:52 | XR ---
EXAMINATION TYPE: XR chest 1V portable DATE OF EXAM: 06/15/2022 7:20 AM COMPARISON: Chest radiographs from 06/13/2022 TECHNIQUE: XR chest 1V portable Portable AP radiograph of the chest. CLINICAL INDICATION:Female, 87 years old with history of effusion; FINDINGS: Lungs/Pleura: Similar moderate right and small left pleural effusions with associated bibasilar atele ctasis. No pneumothorax. Pulmonary vascularity: Mild pulmonary vascular congestion. Heart/mediastinum: Cardiomediastinal silhouette is obscured due to overlying and adjacent opacities. Atherosclerotic calcifications are seen in the aorta. Two lead cardiac conduction device overlying t he left hemithorax with lead tips projecting over the right ventricle and right atrium. Musculoskeletal: No acute osseous pathology. IMPRESSION: Overall similar examination with moderate right and small left pleural effusion with associated atele ctasis and mild pulmonary vascular congestion.
[2022-06-15] MEDS: IPRATROPIUM-ALBUTEROL 3 ML NEB INHALATION SCH ×4 (08:07→21:11)
[2022-06-15] MEDS: FUROSEMIDE 10 MG/ML 4 ML VIAL IV SCH ×2 (08:33→20:18)
[2022-06-15] MEDS: hydrALAZINE HCL 10 MG TAB PO SCH ×3 (08:33→20:42)
[2022-06-15] MEDS: DAPAGLIFLOZIN PROPANEDIOL 10 MG TABLET PO SCH (08:34)
--- NOTE | 2022-06-15 08:56 | P.PN ---
Subjective Progress Note Date: 06/15/22 Principal diagnosis: Recurrent right-sided pleural effusion, acute on chronic systolic heart failure. History of recurrent right-sided pleural effusion status post thoracentesis, last right-sided thoracentesis 05/29/22 with removal of 2 L, chronic atrial fibrillation on Eliquis for anticoagulation, chronic systolic heart failure, EF 20% on most recent echocardiogram, nonischemic cardiomyopathy status post ICD placement in 2007 with upgrade to biventricular in 2016, severe mitral regurgitation, hypertension, hyperlipidemia, chronic kidney disease stage III, COPD, type 2 diabetes The patient was seen and examined the spring sitting up in a recliner with Dr. Zapien. Currently denies chest pain or shortness of breath and oxygen has been weaned down to [address] Zapien did discuss placement of Pleurx catheter, and patient does consent. We will plan for right-sided Pleurx catheter placement this afternoon. Patient to remain NPO except for sips of water for medications. Once Pleurx placed patient may be discharged to home with home care from our standpoint. No other new concerns. Objective - Vital Signs Vital signs: Vital Signs Temp 97.9 F 06/15/22 07:00 Pulse 100 06/15/22 08:16 Resp 20 06/15/22 07:00 BP 99/63 06/15/22 07:00 Pulse Ox 95 06/15/22 08:07 FiO2 30 06/14/22 09:18 Intake & Output 06/14/22 06/15/22 06/15/22 18:59 06:59 18:59 Intake Total 210 Output Total 1000 Balance 210 -1000 Intake: Oral 210 Output: Urine 1000 Other: # Voids 1 # Bowel Movements 1 - Exam CONSTITUTIONAL: Appears comfortable, cooperative, no acute distress RESPIRATORY: Lungs sounds diminished bilaterally. Respirations even, nonlabored. Currently on 4 L nasal cannula with oxygen saturation 95% CARDIOVASCULAR: S1, S2 present. Regular rate and rhythm. Palpable peripheral pulses bilaterally. No edema present. No calf pain or tenderness noted GASTROINTESTINAL: Abdomen soft, nontender, nondistended. Active bowel sounds present 4 quadrants. Currently NPO GENITOURINARY: Continues to void INTEGUMENTARY: Skin is warm and dry NEUROLOGIC: Cranial nerves II through XII intact MUSKULOSKELETAL: Able to move all extremities, strength equal bilaterally, gait normal PSYCHIATRIC: Alert and oriented to person place and time, appropriate affect, intact judgment and insight - Allied health notes Allied health notes reviewed: nursing - Labs CBC & Chem 7: 06/13/22 18:37 06/13/22 18:37 Labs: Abnormal Lab Results - Last 24 Hours (Table) 06/14/22 06/14/22 06/14/22 Range/Units 10:59 11:57 16:51 POC Glucose (mg/dL) 199 H 263 H (70-110) mg/dL Urine Glucose (UA) 4+ H (Negative) Urine Blood Trace H (Negative) Ur Leukocyte Esterase Moderate H (Negative) Urine WBC 6 H (0-5) /hpf 06/15/22 Range/Units 05:35 POC Glucose (mg/dL) 168 H (70-110) mg/dL Urine Glucose (UA) (Negative) Urine Blood (Negative) Ur Leukocyte Esterase (Negative) Urine WBC (0-5) /hpf - Imaging and Cardiology Chest x-ray: report reviewed, image reviewed Assessment and Plan Assessment: Recurrent right-sided pleural effusion, status post thoracentesis, last right- sided thoracentesis 05/29/22 with removal of 2 L Shortness of breath, multifactorial Chronic atrial fibrillation on Eliquis for anticoagulation, last dose Eliquis 06/13/22 Acute on chronic systolic heart failure, EF 20% on most recent echocardiogram, BNP on admission 17,900 Nonischemic cardiomyopathy status post ICD placement in 2007 with upgrade to biventricular in 2016 Severe mitral regurgitation and most recent echocardiogram Hypertension Hyperlipidemia Chronic kidney disease stage III COPD Type 2 diabetes Plan: Our plan is for right-sided Pleurx catheter placement this afternoon by Dr. Zapien or Dr. Medrano Keep nothing by mouth Continue to hold Eliquis Once Pleurx catheter placed patient may be discharged to home with home care from our standpoint Increase activity as tolerated Wean O2 as tolerated Medical management of other comorbidities per internal medicine, cardiology Discharge instructions regarding Pleurx catheter placed on discharge plan
--- NOTE | 2022-06-15 10:07 | P.PN ---
Subjective Progress Note Date: 06/15/22 HISTORY OF PRESENT ILLNESS: This is a 87-year-old female with a past medical history significant for hypertension, hyperlipidemia, diabetes, congestive heart failure, valvular heart disease, biventricular AICD secondary to complete heart block, chronic kidney disease, pleural effusions with history of thoracentesis, and nonischemic cardiomyopathy. Patient follows in the office with Dr. Thakkar. We have been asked to see the patient in consultation for congestive heart failure. Patient examined at the bedside. Patient presented to the hospital with a chief complaint of shortness of breath. She was found to be in acute heart failure and received IV Lasix in the emergency room. It is noted that the patient has had frequent admissions to the hospital secondary to congestive heart failure. Plans were discussed with Dr. Thakkar and Dr. Zapien for outpatient Pleurx catheter insertion, however patient was unable to have this performed on an outpatient basis as her symptoms progressed and she came to the emergency room for further evaluation. The patient was just discharged from the hospital on 05/30/2022. She was admitted at that time for congestive heart failure. She underwent thoracentesis on 05/29/2022 by pulmonary medicine with removal of 2 L of fluid. * EKG reveals ventricular paced rhythm * Chest xray moderate right and small left pleural effusions with associated atelectasis. Cardiomegaly with pulmonary vascular congestion. * Laboratory data: WBC 8.2. Hemoglobin 15.2. Platelet count 190. Sodium 141. Potassium 3.6. BUN 52. Creatinine 1.51. Magnesium 2.4. ProBNP 17,900. * Current home cardiac medications include Eliquis 2.5mg BID, Bumex 2 mg daily, simvastatin 20 mg at night, Midodrine 5mg BID, and Farxiga 10mg daily * Most recent echocardiogram obtained in June 2021 revealing ejection fraction 20-25%, moderate to severe MR, trace to mild aortic regurgitation, mild tricuspid regurgitation * Cardiac catheterization history: 2007 revealing normal coronary arteries 06/14 Patient seen and examined. She is sitting up in bedside chair. She reports she is not doing very good, feels the same as yesterday. She does report having difficulty swallowing because it feels like her mouth is swollen and therefore is not eating much. She is on nasal cannula at 3 L O2. Chest x-ray today shows similar appearance of moderate right and small left pl eural effusion with associated atelectasis and mild pulmonary vascular congestion. PHYSICAL EXAM: VITAL SIGNS: Reviewed. GENERAL: Well-developed in no acute distress. HEENT: Head is normocephalic. Pupils are equal, round. Sclerae anicteric. Mucous membranes of the mouth are moist, no obvious swelling or thrush. No JVD or thyromegaly LUNGS: Respirations even and unlabored. Lungs diminished, right worse than left. HEART: Regular rate and rhythm. S1 and S2 heard. Systolic murmur noted ABDOMEN: Soft. Nondistended. Nontender. EXTREMITIES: Normal range of motion. No clubbing or cyanosis. Peripheral pulses intact. No lower extremity edema NEUROLOGIC: Awake and alert. Oriented x 3. ASSESSMENT: Shortness of breath Acute on chronic heart failure with reduced EF, EF 20-25% Recurrent bilateral pleural effusions with history of multiple thoracentesis in the past, most recently May 2022 Nonischemic cardiomyopathy Normal coronary arteries, per cardiac catheterization in 2007 Permanent atrial fibrillation Chronic kidney disease Hypertension Hyperlipidemia Diabetes History of complete heart block History of biventricular AICD PLAN: No need to repeat echocardiogram. Continue Lasix 40 mg IV every 12 hours. Daily weights, accurate I&O, and monitoring of kidney function. Cardiothoracic surgery planning for Pleurx catheter placement this afternoon. Eliquis held for procedure. Further recommendations pending patient's course Nurse practitioner note has been reviewed by physician. Signing provider agrees with the documented findings, assessment, and plan of care. Objective - Vital Signs Vital signs: Vital Signs Temp 97.9 F 06/15/22 07:00 Pulse 100 06/15/22 08:16 Resp 20 06/15/22 08:00 BP 99/63 06/15/22 07:00 Pulse Ox 95 06/15/22 08:07 FiO2 30 06/14/22 09:18 Intake & Output 06/14/22 06/15/22 06/15/22 18:59 06:59 18:59 Intake Total 210 Output Total 1000 Balance 210 -1000 Intake: Oral 210 Output: Urine 1000 Other: # Voids 1 # Bowel Movements 1 - Labs CBC & Chem 7: 06/13/22 18:37 06/13/22 18:37 Labs: Abnormal Lab Results - Last 24 Hours (Table) 06/14/22 06/14/22 06/14/22 Range/Units 10:59 11:57 16:51 POC Glucose (mg/dL) 199 H 263 H (70-110) mg/dL Urine Glucose (UA) 4+ H (Negative) Urine Blood Trace H (Negative) Ur Leukocyte Esterase Moderate H (Negative) Urine WBC 6 H (0-5) /hpf 06/15/22 Range/Units 05:35 POC Glucose (mg/dL) 168 H (70-110) mg/dL Urine Glucose (UA) (Negative) Urine Blood (Negative) Ur Leukocyte Esterase (Negative) Urine WBC (0-5) /hpf
[2022-06-15 10:53] LABS: Basophils # (A) 0.05 X 10*3/uL (0.00-0.10); Basophils % (A) 0.6 %; Eosinophils # (A) 0.07 X 10*3/uL (0.04-0.35); Eosinophils % (A) 0.8 %; HCT 45.3 % (37.2-46.3); HGB 14.5 g/dL (12.0-15.0); Immature Grans, Automated 0.2 %; Lymphocytes # (A) 0.82 X 10*3/uL (0.90-5.00); Lymphocytes % (A) 9.4 %; MCH 30.5 pg (27.0-32.0); MCV 95.4 fL (80.0-97.0); Mean Platelet Volume 12.3 fL (9.5-12.2); Monocytes # (A) 0.54 X 10*3/uL (0.20-1.00); Monocytes % (A) 6.2 %; NRBC Per 100 WBC 0 /100 WBCS (0.0-0.0); Neutrophils # (A) 7.26 X 10*3/uL (1.80-7.70); Neutrophils % (A) 82.8 %; Platelet Count 161 X 10*3/uL (140-440); RBC 4.75 X 10*6/uL (4.10-5.20); RDW 14.1 % (11.5-14.5); WBC 8.76 X 10*3/uL (4.50-10.00)
[2022-06-15 11:10] LABS: African American GFR (CKD) 32.8 (60.0-200.0); Albumin 3.9 g/dL (3.8-4.9); Albumin/Globulin Ratio 1.74 (1.60-3.17); Anion Gap 13.8 mmol/L (10.00-18.00); BUN/Creat Ratio 27.94 Ratio (12.00-20.00); Blood Urea Nitrogen 44.7 mg/dL (9.0-27.0); Calcium 9.3 mg/dL (8.7-10.3); Carbon Dioxide 30.2 mmol/L (20.0-27.5); Globulin 2.3 g/dL (1.6-3.3); Non-African American GFR(CKD) 28.3 (60.0-200.0); Potassium 3.3 mmol/L (3.5-5.5); Total Protein 6.2 g/dL (6.2-8.2)
[2022-06-15] MEDS ORDERED: Potassium Replacement Protocol 1 EACH MISC MISCELLANE PRN (12:31)
--- NOTE | 2022-06-15 12:32 | P.PN ---
Subjective Progress Note Date: 06/15/22 patient is a 87-year-old female with a past medical history significant for hypertension, hyperlipidemia, diabetes, congestive heart failure, valvular heart disease, biventricular AICD secondary to complete heart block, chronic kidney disease, pleural effusions with history of thoracentesis, and nonischemic cardiomyopathy who presented to the hospital with a chief complaint of shortness of breath . Patient multiple admissions the last few months for for CHF exacerbations with pleural effusions. Patient has been noticing increased shortness of breath for the last few days. Patient denies any fever or chills. Patient also was complaining of swelling of lower extremities. Denied any chest pain Chest xray moderate right and small left pleural effusions with associated atelectasis. Cardiomegaly with pulmonary vascular congestion. Laboratory data: WBC 8.2. Hemoglobin 15.2. Platelet count 190. Sodium 141. Potassium 3.6. BUN 52. Creatinine 1.51. Magnesium 2.4. ProBNP 17,900. Patient was admitted to internal medicine for further evaluation and treatment 06/15. Patient seen and examined.vital signs this morning heart rate 100, respiration 20, 95% on 3 L of oxygen. States she gets short of breath easily on exertion REVIEW OF SYSTEMS: CONSTITUTIONAL: No fever, no malaise,. CARDIOVASCULAR: No chest pain, no palpitations, no syncope. PULMONARY: as mentioned above GASTROINTESTINAL: No diarrhea, no nausea, no vomiting, no abdominal pain. NEUROLOGICAL: No headaches, no weakness, PHYSICAL EXAMINATION: GENERAL: The patient is alert and oriented x3, not in any acute distress. chronically ill-looking HEENT: Pupils are round and equally reacting to light. EOMI. No scleral icterus. No conjunctival pallor. Normocephalic, atraumatic. No pharyngeal erythema. No thyromegaly. CARDIOVASCULAR: S1 and S2 present. No murmurs, rubs, or gallops. PULMONARY: definitions breath sounds at the bases, more diminished on right side, ABDOMEN: Soft, nontender, nondistended, normoactive bowel sounds. No palpable organomegaly. MUSCULOSKELETAL: No joint swelling or deformity. EXTREMITIES: No cyanosis, clubbing, or pedal edema. NEUROLOGICAL: Gross neurological examination did not reveal any focal deficits. SKIN: No rashes. Assessment and plan Recurrent right-sided pleural effusion, status post thoracentesis, last right-sided thoracentesis 05/29/22 with removal of 2 L Shortness of breath, multifactorial Chronic atrial fibrillation on Eliquis for anticoagulation, last dose Eliquis 06/13/22 Acute on chronic systolic heart failure, EF 20% on most recent echocardiogram, BNP on admission 17,900 Nonischemic cardiomyopathy status post ICD placement in 2007 with upgrade to biventricular in 2016 Severe mitral regurgitation and most recent echocardiogram Hypertension Hyperlipidemia Chronic kidney disease stage III COPD Type 2 diabetes plan; Monitor CBC Monitor CMP Telemetry monitoring Strict I's and O's Daily weights Continue IV Lasix 40 mg Twice a day Eliquis on hold for procedure CT surgery consulted for pleurax catheter placement, currently nothing by mouth going for right-sided Pleurx catheter placement this afternoon follow-up on cardiology recommendations Follow-up on pulmonary recommendations Objective - Vital Signs Vital signs: Vital Signs Temp 97.9 F 06/15/22 07:00 Pulse 98 06/15/22 11:31 Resp 20 06/15/22 08:00 BP 99/63 06/15/22 07:00 Pulse Ox 95 06/15/22 08:07 FiO2 30 06/14/22 09:18 Intake & Output 06/14/22 06/15/22 06/15/22 18:59 06:59 18:59 Intake Total 210 Output Total 1000 Balance 210 -1000 Intake: Oral 210 Output: Urine 1000 Other: # Voids 1 # Bowel Movements 1 - Labs CBC & Chem 7: 06/15/22 06:13 06/15/22 06:13 Labs: Abnormal Lab Results - Last 24 Hours (Table) 06/14/22 06/15/22 06/15/22 Range/Units 16:51 05:35 06:13 MPV (9.5-12.2) fL Lymphocytes # (0.90-5.00) X 10*3/uL Sodium (135-145) mmol/L Potassium (3.5-5.5) mmol/L Carbon Dioxide (20.0-27.5) mmol/L BUN (9.0-27.0) mg/dL Creatinine (0.6-1.5) mg/dL Est GFR (CKD-EPI)AfAm (60.0-200.0) Est GFR (CKD-EPI)NonAf (60.0-200.0) BUN/Creatinine Ratio (12.00-20.00) Ratio Glucose (70-110) mg/dL POC Glucose (mg/dL) 263 H 168 H (70-110) mg/dL Hemoglobin A1c 7.1 H (0.0-6.0) % Total Bilirubin (0.30-1.20) mg/dL 06/15/22 06/15/22 Range/Units 06:13 06:13 MPV 12.3 H (9.5-12.2) fL Lymphocytes # 0.82 L (0.90-5.00) X 10*3/uL Sodium 147 H (135-145) mmol/L Potassium 3.3 L (3.5-5.5) mmol/L Carbon Dioxide 30.2 H (20.0-27.5) mmol/L BUN 44.7 H (9.0-27.0) mg/dL Creatinine 1.6 H (0.6-1.5) mg/dL Est GFR (CKD-EPI)AfAm 32.8 L (60.0-200.0) Est GFR (CKD-EPI)NonAf 28.3 L (60.0-200.0) BUN/Creatinine Ratio 27.94 H (12.00-20.00) Ratio Glucose 168 H (70-110) mg/dL POC Glucose (mg/dL) (70-110) mg/dL Hemoglobin A1c (0.0-6.0) % Total Bilirubin 2.00 H (0.30-1.20) mg/dL
--- NOTE | 2022-06-15 12:49 | P.PN ---
Subjective Progress Note Date: 06/15/22 87-year-old. Patient, hospitalized because of shortness of breath. The patient has severe Cardiomyopathy which is on a nonischemic in nature, and the patient has had multiple breast physician for decompensated CHF and pleural effusion noted the patient has a left ventricle ejection fraction of around 20-25% based on an earlier echocardiogram. At same time, the patient has developed recurrent right-sided pleural effusion and she has been requiring several and multiple thoracentesis. She was drained back in April 2022. During her last hospitalization in May 2022, drained the right-sided pleural effusion and I aspirated approximately 2 L of pleural fluid and the fluid was a candidate in nature consistent with CHF. The patient was given diuretics. She was taken off the warfarin and she was placed on Eliquis. She is known to have paroxysmal atrial fibrillation. She is also known to have hypertension, diabetes mellitus, hyperlipidemia and she has a pacer/AICD in place for underlying complete heart block. She also has paroxysmal atrial fibrillation. The patient was hostile is again and for now the plan is to consider a Pleurx catheter insertion for this p atient in setting of severe cardiomyopathy, recurrent right-sided pleural effusion and symptom control. His EKG currently is a paced rhythm. The chest x-ray shows a moderate-sized right-sided pleural effusion and small left-sided pleural effusion. She is currently on 6 L of O2 nasal cannula with a pulse ox of 96%. Today's evaluation Patient is awaiting a Pleurx is on today's evaluation of 06/15/2022, the patient is awaiting a Pleurx catheter insertion. Overall respiratory status is unchange d compared to yesterday. No interval worsening in shortness of breath. No chest pain diuretics and the patient on Lasix 40 mg IV every 12 hours. Cardiothoracic surgery is aware patient is going to proceed with Pleurx catheter insertion today.Labs from today show a sodium level of 147, BUN is 44 with a creatinine of 1.6 and the patient has a WBC count of 8.7 with a hemoglobin 14.5 and the anticoagulation is currently on hold. Objective - Vital Signs Vital signs: Vital Signs Temp 97.9 F 06/15/22 07:00 Pulse 98 06/15/22 11:31 Resp 20 06/15/22 08:00 BP 99/63 06/15/22 07:00 Pulse Ox 95 05/09/23 08:07 FiO2 30 06/14/22 09:18 Intake & Output 06/14/22 06/15/22 06/15/22 18:59 06:59 18:59 Intake Total 210 Output Total 1000 Balance 210 -1000 Intake: Oral 210 Output: Urine 1000 Other: # Voids 1 # Bowel Movements 1 - Exam Physical Exam: Revealed 86-year-old female in no distress, on 6 L O2 nasal cannula with a pulse ox of 95%. Head: Atraumatic, normocephalic HEENT:[Neck is supple.] [No neck masses.] [No thyromegaly.] Positive JVD. Chest: Symmetrical chest expansion, diminished breath sounds at the right base with dullness.. And the patient also dullness to percussion. Cardiac Exam: Irregular irregular rhythm. [Normal S1 and S2, no S3 gallop, 3/6 systolic murmur throughout the precordium mostly at the left lower sternal border Abdomen: [Soft, nontender, no megaly, no rebound, no guarding, normal bowel sounds.] Extremities: [No clubbing, no edema, no cyanosis.] Neurological Exam: Alert oriented 3 focal deficit Psychiatric: Normal mood affect and normal mental status examination. Skin: No rashes Musko skeletal: No deformities and no limitation in range of motion - Labs CBC & Chem 7: 06/15/22 06:13 06/15/22 06:13 Labs: Abnormal Lab Results - Last 24 Hours (Table) 06/14/22 06/15/22 06/15/22 Range/Units 16:51 05:35 06:13 MPV (9.5-12.2) fL Lymphocytes # (0.90-5.00) X 10*3/uL Sodium (135-145) mmol/L Potassium (3.5-5.5) mmol/L Carbon Dioxide (20.0-27.5) mmol/L BUN (9.0-27.0) mg/dL Creatinine (0.6-1.5) mg/dL Est GFR (CKD-EPI)AfAm (60.0-200.0) Est GFR (CKD-EPI)NonAf (60.0-200.0) BUN/Creatinine Ratio (12.00-20.00) Ratio Glucose (70-110) mg/dL POC Glucose (mg/dL) 263 H 168 H (70-110) mg/dL Hemoglobin A1c 7.1 H (0.0-6.0) % Total Bilirubin (0.30-1.20) mg/dL 06/15/22 06/15/22 Range/Units 06:13 06:13 MPV 12.3 H (9.5-12.2) fL Lymphocytes # 0.82 L (0.90-5.00) X 10*3/uL Sodium 147 H (135-145) mmol/L Potassium 3.3 L (3.5-5.5) mmol/L Carbon Dioxide 30.2 H (20.0-27.5) mmol/L BUN 44.7 H (9.0-27.0) mg/dL Creatinine 1.6 H (0.6-1.5) mg/dL Est GFR (CKD-EPI)AfAm 32.8 L (60.0-200.0) Est GFR (CKD-EPI)NonAf 28.3 L (60.0-200.0) BUN/Creatinine Ratio 27.94 H (12.00-20.00) Ratio Glucose 168 H (70-110) mg/dL POC Glucose (mg/dL) (70-110) mg/dL Hemoglobin A1c (0.0-6.0) % Total Bilirubin 2.00 H (0.30-1.20) mg/dL Assessment and Plan Plan: Recurrent moderate to large right-sided pleural effusion. Last thoracentesis was performed on 05/29/2022 and the fluid was a transudate, consistent with CHF and negative cytology. Acute on chronic shortness of breath due to decompensated heart failure, and there is obvious worsening right-sided pleural effusion Acute hypoxic respiratory failure currently on 6 L of O2 nasal cannula Chronic bilateral pleural effusion worse on the right, previous thoracentesis indicating a transudate, the last thoracentesis was done in April 2022. Chronic systolic congestive heart failure, known to have ejection fraction of 20-25% and previous history of biventricular AICD placement. Bilateral pleural effusions consistent with congestive heart failure, no need for thoracentesis, continue medical treatment for now. Severe cardiomyopathy and LV dysfunction Chronic atrial fibrillation, patient is currently on Eliquis Severe mitral valve regurgitation Type 2 diabetes Questionable underlying COPD Degenerative joint disease History of basal cell carcinoma/skin. History of pacer/AICD placement Plan Proceed with a Pleurx catheter insertion today. Is being done for symptomatic lesions. This is a transudative effusion. A Pleurx catheter can be considered for symptomatic relief and this has a variable success based on the literature available or transudative effusions. Nevertheless, it may be worthwhile considering the catheter insertion for symptomatic relief. We'll consult cardiothoracic surgery. We'll continue to follow. Hold Socrates for now.
[2022-06-15] MEDS ORDERED: LACTATED RINGERS 1,000 ML IV ONE (15:11)
[2022-06-15 15:33] LABS: Glucose,Whole Blood 160 mg/dL (70-110)
[2022-06-15] MEDS ORDERED: ONDANSETRON 4 MG/2 ML VIAL ONE (15:37)
[2022-06-15] MEDS ORDERED: ONDANSETRON 4 MG/2 ML VIAL IVP ONE (15:38)
[2022-06-15] MEDS ORDERED: PROPOFOL 10 MG/ML 20 ML VIAL IV ONE (16:01)
[2022-06-15] MEDS ORDERED: LIDOCAINE 1% INJ 10MG/ML (10 ML MDV) SQ ONE ×2 (16:16→16:25)
--- NOTE | 2022-06-15 16:57 | P.OP ---
Date of Procedure: 06/15/22 Preoperative Diagnosis: Recurrent right sided pleural effusion Congestive heart failure Postoperative Diagnosis: Same Implants: Right PleurX Anesthesia: ARIANAA Surgeon: Timothy Medrano Estimated Blood Loss (ml): 5 Pathology: other (fluid for cytology) Condition: stable Disposition: PACU Indications for Procedure: This patient is a 87 year-old female admitted to the hospital with heart failure. She was noted to have a recurrent right sided effusion. This is thought to be due to her heart failure. PleurX catheter was recommended Operative Findings: 2.1L of serous fluid drained from the pleurX. No fluoroscopy was available. Description of Procedure: The patient was brought to the operating room and placed in the supine position. She was sedated and a bump was placed under her right chest. Antibiotics were given. I used 1% lidocaine to anesthetize two areas along the costal margin and one posteriorly. Two small incisions were made here. I used the introducer needle to enter the space above the 9th rib and gained entry into the pleural cavity with good return of serous fluid. The guidewire was inserted and the catheter was tunneled from anterior to posterior and inserted into the chest via the peel away sheath. 2.1 L of serous fluid was evacuated. The posterior incision was closed with 3-0 monocryl and glue, the catheter was sutured to the skin and a sterile dressing was applied.
[2022-06-15 17:04] LABS: Glucose,Whole Blood 130 mg/dL (70-110)
--- NOTE | 2022-06-15 17:40 | XR ---
EXAMINATION TYPE: XR chest 1V portable DATE OF EXAM: 06/15/2022 COMPARISON: 06/15/2022 INDICATION: Post Pleurx catheter TECHNIQUE: Single frontal view of the chest is obtained. FINDINGS: The heart size is moderately prominent. The pulmonary vasculature is prominent. Small bilateral pleural effusions are present. These are diminished from comparison. Pacemaker overli es left chest. There is a minimal right apical pneumothorax. Right-sided chest tube is present. IMPRESSION: 1. Minimal right apical pneumothorax. Right-sided chest tube is present. 2. Small bilateral pleural effusions, diminished from comparison.
[2022-06-15 17:47] LABS: Glucose,Whole Blood 129 mg/dL (70-110)
[2022-06-15] MEDS: POTASSIUM CHLORIDE ER 20 MEQ TAB.ER PO SCH ×2 (17:47→17:48)
[2022-06-15 20:10] LABS: Glucose,Whole Blood 196 mg/dL (70-110)
[2022-06-15 20:11] LABS: Glucose,Whole Blood 161 mg/dL (70-110)
[2022-06-15 20:11] LABS: Glucose,Whole Blood 78 mg/dL (70-110)
[2022-06-15] MEDS: INSULIN DETEMIR (LEVEMIR) 100 UNIT/ML SYR SQ SCH (20:17)
[2022-06-15] MEDS: ATORVASTATIN 10 MG TAB PO SCH (20:18)
[2022-06-16 06:18] LABS: Glucose,Whole Blood 129 mg/dL (70-110)
[2022-06-16] MEDS: INSULIN ASPART (NovoLOG) 100 UNIT/ML VIAL SQ SCH ×4 (06:18→12:56)
[2022-06-16] MEDS: LEVOTHYROXINE 25 MCG TAB PO SCH (06:22)
[2022-06-16 07:00] LABS: ALT 21 U/L (4-34); African American GFR (CKD) 29 (>60 ml/min/1.73 sqM); Albumin 3.6 g/dL (3.5-5.0); Albumin/Globulin Ratio 1.3; Anion Gap 10 mmol/L; Blood Urea Nitrogen 52 mg/dL (7-17); Calcium 8.9 mg/dL (8.4-10.2); Carbon Dioxide 29 mmol/L (22-30); Chloride 101 mmol/L (98-107); Globulin 2.7 g/dL; Glucose 121 mg/dL (74-99); Non-African American GFR(CKD) 25 (>60 ml/min/1.73 sqM); Sodium 140 mmol/L (137-145); Total Bilirubin 2.3 mg/dL (0.2-1.3); Total Protein 6.3 g/dL (6.3-8.2)
[2022-06-16 07:10] LABS: AST 32 U/L (14-36); Potassium 4.5 mmol/L (3.5-5.1)
[2022-06-16 07:11] LABS: Alkaline Phosphatase 54 U/L (38-126)
[2022-06-16] MEDS: hydrALAZINE HCL 10 MG TAB PO SCH (07:57)
[2022-06-16] MEDS: DAPAGLIFLOZIN PROPANEDIOL 10 MG TABLET PO SCH (08:05)
[2022-06-16] MEDS: FUROSEMIDE 10 MG/ML 4 ML VIAL IV SCH (08:05)
[2022-06-16 08:07] VITALS: BP 104/63; RESP 16; TEMP 97.4
[2022-06-16] MEDS: IPRATROPIUM-ALBUTEROL 3 ML NEB INHALATION SCH ×2 (08:30→11:31)
[2022-06-16 09:14] LABS: HCT 45.2 % (34.0-46.0); HGB 15.1 gm/dL (11.4-16.0); MCH 31.7 pg (25.0-35.0); MCHC 33.4 g/dL (31.0-37.0); MCV 95.1 fL (80.0-100.0); Mean Platelet Volume 9.4; Platelet Count 146 k/uL (150-450); RBC 4.76 m/uL (3.80-5.40); RDW 14.3 % (11.5-15.5); WBC 8.5 k/uL (3.8-10.6)
--- NOTE | 2022-06-16 11:35 | P.PN ---
Subjective Progress Note Date: 06/16/22 Principal diagnosis: Recurrent right-sided pleural effusion, acute on chronic systolic heart failure. History of recurrent right-sided pleural effusion status post thoracentesis, last right-sided thoracentesis 05/29/22 with removal of 2 L, chronic atrial fibrillation on Eliquis for anticoagulation, chronic systolic heart failure, EF 20% on most recent echocardiogram, nonischemic cardiomyopathy status post ICD placement in 2007 with upgrade to biventricular in 2016, severe mitral regurgitation, hypertension, hyperlipidemia, chronic kidney disease stage III, COPD, type 2 diabetes POD #1 placement of right-sided Pleurx catheter with removal of 2.1 L serous fluid The patient was seen and examined this morning sitting up in a recliner in no acute distress. Currently denies chest pain, states shortness of breath has improved. Pleurx catheter placed yesterday, drained again today for 1 liter straw colored fluid with present for teaching. Patient may be dischar ged to home with home care from our standpoint. No other new concerns. Objective - Vital Signs Vital signs: Vital Signs Temp 97.4 F L 06/16/22 07:35 Pulse 99 06/16/22 08:31 Resp 16 06/16/22 07:35 BP 104/63 06/16/22 07:35 Pulse Ox 97 06/16/22 07:35 FiO2 30 06/14/22 09:18 Intake & Output 06/15/22 06/16/22 06/16/22 18:59 06:59 18:59 Intake Total 668 360 Output Total 3250 625 Balance -2582 -265 Weight 60.328 kg 59 kg Intake: IV 550 Oral 118 360 Output: Urine 1150 625 Pleural Fluid 2100 Other: Voiding Method Toilet Toilet - Exam CONSTITUTIONAL: Appears comfortable, cooperative, no acute distress RESPIRATORY: Lungs sounds diminished bilaterally. Respirations even, nonlabored. Currently on 3 L nasal cannula with oxygen saturation 97%. Right- sided Pleurx catheter present under dry intact dressing CARDIOVASCULAR: S1, S2 present. Regular rate and rhythm. Palpable peripheral pulses bilaterally. No edema present. No calf pain or tenderness noted GASTROINTESTINAL: Abdomen soft, nontender, nondistended. Active bowel sounds present 4 quadrants. Tolerating diet GENITOURINARY: Continues to void INTEGUMENTARY: Skin is warm and dry NEUROLOGIC: Cranial nerves II through XII intact MUSKULOSKELETAL: Able to move all extremities, strength equal bilaterally, gait normal PSYCHIATRIC: Alert and oriented to person place and time, appropriate affect, intact judgment and insight - Allied health notes Allied health notes reviewed: nursing - Labs CBC & Chem 7: 06/16/22 08:45 06/16/22 06:30 Labs: Abnormal Lab Results - Last 24 Hours (Table) 06/15/22 06/15/22 06/15/22 Range/Units 06:13 06:13 06:13 Plt Count (150-450) k/uL MPV 12.3 H (9.5-12.2) fL Lymphocytes # 0.82 L (0.90-5.00) X 10*3/uL Sodium 147 H (135-145) mmol/L Potassium 3.3 L (3.5-5.5) mmol/L Carbon Dioxide 30.2 H (20.0-27.5) mmol/L BUN 44.7 H (9.0-27.0) mg/dL Creatinine 1.6 H (0.6-1.5) mg/dL Est GFR (CKD-EPI)AfAm 32.8 L (60.0-200.0) Est GFR (CKD-EPI)NonAf 28.3 L (60.0-200.0) BUN/Creatinine Ratio 27.94 H (12.00-20.00) Ratio Glucose 168 H (70-110) mg/dL POC Glucose (mg/dL) (70-110) mg/dL Hemoglobin A1c 7.1 H (0.0-6.0) % Total Bilirubin 2.00 H (0.30-1.20) mg/dL 06/15/22 06/15/22 06/15/22 Range/Units 12:15 15:31 17:02 Plt Count (150-450) k/uL MPV (9.5-12.2) fL Lymphocytes # (0.90-5.00) X 10*3/uL Sodium (135-145) mmol/L Potassium (3.5-5.5) mmol/L Carbon Dioxide (20.0-27.5) mmol/L BUN (9.0-27.0) mg/dL Creatinine (0.6-1.5) mg/dL Est GFR (CKD-EPI)AfAm (60.0-200.0) Est GFR (CKD-EPI)NonAf (60.0-200.0) BUN/Creatinine Ratio (12.00-20.00) Ratio Glucose (70-110) mg/dL POC Glucose (mg/dL) 161 H 160 H 130 H (70-110) mg/dL Hemoglobin A1c (0.0-6.0) % Total Bilirubin (0.30-1.20) mg/dL 06/15/22 06/15/22 06/16/22 Range/Units 17:45 20:08 06:17 Plt Count (150-450) k/uL MPV (9.5-12.2) fL Lymphocytes # (0.90-5.00) X 10*3/uL Sodium (135-145) mmol/L Potassium (3.5-5.5) mmol/L Carbon Dioxide (20.0-27.5) mmol/L BUN (9.0-27.0) mg/dL Creatinine (0.6-1.5) mg/dL Est GFR (CKD-EPI)AfAm (60.0-200.0) Est GFR (CKD-EPI)NonAf (60.0-200.0) BUN/Creatinine Ratio (12.00-20.00) Ratio Glucose (70-110) mg/dL POC Glucose (mg/dL) 129 H 196 H 129 H (70-110) mg/dL Hemoglobin A1c (0.0-6.0) % Total Bilirubin (0.30-1.20) mg/dL 06/16/22 06/16/22 Range/Units 06:30 08:45 Plt Count 146 L (150-450) k/uL MPV (9.5-12.2) fL Lymphocytes # (0.90-5.00) X 10*3/uL Sodium (135-145) mmol/L Potassium (3.5-5.5) mmol/L Carbon Dioxide (20.0-27.5) mmol/L BUN 52 H (9.0-27.0) mg/dL Creatinine 1.79 H (0.6-1.5) mg/dL Est GFR (CKD-EPI)AfAm (60.0-200.0) Est GFR (CKD-EPI)NonAf (60.0-200.0) BUN/Creatinine Ratio (12.00-20.00) Ratio Glucose 121 H (70-110) mg/dL POC Glucose (mg/dL) (70-110) mg/dL Hemoglobin A1c (0.0-6.0) % Total Bilirubin 2.3 H (0.30-1.20) mg/dL Assessment and Plan Assessment: Recurrent right-sided pleural effusion, status post thoracentesis, last right- sided thoracentesis 05/29/22 with removal of 2 L, status post right-sided Pleurx catheter placement with removal of 2.1 L fluid Shortness of breath, multifactorial Chronic atrial fibrillation on Eliquis for anticoagulation, last dose Eliquis 06/13/22 Acute on chronic systolic heart failure, EF 20% on most recent echocardiogram, BNP on admission 17,900 Nonischemic cardiomyopathy status post ICD placement in 2007 with upgrade to biventricular in 2016 Severe mitral regurgitation and most recent echocardiogram Hypertension Hyperlipidemia Chronic kidney disease stage III COPD Type 2 diabetes Plan: Pleurx catheter drained for 1 liter today with present May restart Eliquis from our standpoint May be discharged to home with home care from our standpoint Increase activity as tolerated Wean O2 as tolerated Medical management of other comorbidities per internal medicine, cardiology PleurX to be drained initially every other day, then increase or decrease frequency as patients symptoms necessitate Discharge instructions regarding Pleurx catheter placed on discharge plan
[2022-06-16 11:41] VITALS: PULSE 101
--- NOTE | 2022-06-16 11:41 | P.PN ---
Subjective Progress Note Date: 06/16/22 HISTORY OF PRESENT ILLNESS: This is a 87-year-old female with a past medical history significant for hypertension, hyperlipidemia, diabetes, congestive heart failure, valvular heart disease, biventricular AICD secondary to complete heart block, chronic kidney disease, pleural effusions with history of thoracentesis, and nonischemic cardiomyopathy. Patient follows in the office with Dr. Thakkar. We have been asked to see the patient in consultation for congestive heart failure. Patient examined at the bedside. Patient presented to the hospital with a chief complaint of shortness of breath. She was found to be in acute heart failure and received IV Lasix in the emergency room. It is noted that the patient has had frequent admissions to the hospital secondary to congestive heart failure. Plans were discussed with Dr. Thakkar and Dr. Zapien for outpatient Pleurx catheter insertion, however patient was unable to have this performed on an outpatient basis as her symptoms progressed and she came to the emergency room for further evaluation. The patient was just discharged from the hospital on 05/30/2022. She was admitted at that time for congestive heart failure. She underwent thoracentesis on 05/29/2022 by pulmonary medicine with removal of 2 L of fluid. * EKG reveals ventricular paced rhythm * Chest xray moderate right and small left pleural effusions with associated atelectasis. Cardiomegaly with pulmonary vascular congestion. * Laboratory data: WBC 8.2. Hemoglobin 15.2. Platelet count 190. Sodium 141. Potassium 3.6. BUN 52. Creatinine 1.51. Magnesium 2.4. ProBNP 17,900. * Current home cardiac medications include Eliquis 2.5mg BID, Bumex 2 mg daily, simvastatin 20 mg at night, Midodrine 5mg BID, and Farxiga 10mg daily * Most recent echocardiogram obtained in June 2021 revealing ejection fraction 20-25%, moderate to severe MR, trace to mild aortic regurgitation, mild tricuspid regurgitation * Cardiac catheterization history: 2007 revealing normal coronary arteries 06/15 Patient seen and examined. She is sitting up in bedside chair. She reports she is not doing very good, feels the same as yesterday. She does report having difficulty swallowing because it feels like her mouth is swollen and therefore is not eating much. She is on nasal cannula at 3 L O2. Chest x-ray today shows similar appearance of moderate right and small left pl eural effusion with associated atelectasis and mild pulmonary vascular congestion. 06/16 Patient sitting up on edge of bed, reports that her breathing does feel a little better today. She is status post right Pleurx placement 06/15 with 2.1 L drained off. She is able to eat a little better today. Denies any chest pain. PHYSICAL EXAM: VITAL SIGNS: Reviewed. GENERAL: Well-developed in no acute distress. HEENT: Head is normocephalic. Pupils are equal, round. Sclerae anicteric. Mucous membranes of the mouth are moist, no obvious swelling or thrush. No JVD or thyromegaly LUNGS: Respirations even and unlabored. Lungs diminished but improved air flow HEART: Regular rate and rhythm. S1 and S2 heard. Systolic murmur noted ABDOMEN: Soft. Nondistended. Nontender. EXTREMITIES: Normal range of motion. No clubbing or cyanosis. Peripheral pulses intact. No lower extremity edema NEUROLOGIC: Awake and alert. Oriented x 3. ASSESSMENT: Shortness of breath Acute on chronic heart failure with reduced EF, EF 20-25% Recurrent bilateral pleural effusions with history of multiple thoracentesis in the past, most recently May 2022 Nonischemic cardiomyopathy Normal coronary arteries, per cardiac catheterization in 2007 Permanent atrial fibrillation Chronic kidney disease Hypertension Hyperlipidemia Diabetes History of complete heart block History of biventricular AICD PLAN: DC IV lasix, resume home Bumex po. Doing well s/p pluerex placement. Eliquis held for procedure, ok to resume at discharge. OK to dc home from cardiology standpoint. Follow up in clinic in 1 week. Nurse practitioner note has been reviewed by physician. Signing provider agrees with the documented findings, assessment, and plan of care. Objective - Vital Signs Vital signs: Vital Signs Temp 97.4 F L 06/16/22 07:35 Pulse 99 06/16/22 08:31 Resp 16 06/16/22 07:35 BP 104/63 06/16/22 07:35 Pulse Ox 97 06/16/22 07:35 FiO2 30 06/14/22 09:18 Intake & Output 06/15/22 06/16/22 06/16/22 18:59 06:59 18:59 Intake Total 668 360 Output Total 3250 625 Balance -2582 -265 Weight 60.328 kg 59 kg Intake: IV 550 Oral 118 360 Output: Urine 1150 625 Pleural Fluid 2100 Other: Voiding Method Toilet Toilet - Labs CBC & Chem 7: 06/16/22 08:45 06/16/22 06:30 Labs: Abnormal Lab Results - Last 24 Hours (Table) 06/15/22 06/15/22 06/15/22 Range/Units 06:13 06:13 06:13 Plt Count (150-450) k/uL MPV 12.3 H (9.5-12.2) fL Lymphocytes # 0.82 L (0.90-5.00) X 10*3/uL Sodium 147 H (135-145) mmol/L Potassium 3.3 L (3.5-5.5) mmol/L Carbon Dioxide 30.2 H (20.0-27.5) mmol/L BUN 44.7 H (9.0-27.0) mg/dL Creatinine 1.6 H (0.6-1.5) mg/dL Est GFR (CKD-EPI)AfAm 32.8 L (60.0-200.0) Est GFR (CKD-EPI)NonAf 28.3 L (60.0-200.0) BUN/Creatinine Ratio 27.94 H (12.00-20.00) Ratio Glucose 168 H (70-110) mg/dL POC Glucose (mg/dL) (70-110) mg/dL Hemoglobin A1c 7.1 H (0.0-6.0) % Total Bilirubin 2.00 H (0.30-1.20) mg/dL 06/15/22 06/15/22 06/15/22 Range/Units 12:15 15:31 17:02 Plt Count (150-450) k/uL MPV (9.5-12.2) fL Lymphocytes # (0.90-5.00) X 10*3/uL Sodium (135-145) mmol/L Potassium (3.5-5.5) mmol/L Carbon Dioxide (20.0-27.5) mmol/L BUN (9.0-27.0) mg/dL Creatinine (0.6-1.5) mg/dL Est GFR (CKD-EPI)AfAm (60.0-200.0) Est GFR (CKD-EPI)NonAf (60.0-200.0) BUN/Creatinine Ratio (12.00-20.00) Ratio Glucose (70-110) mg/dL POC Glucose (mg/dL) 161 H 160 H 130 H (70-110) mg/dL Hemoglobin A1c (0.0-6.0) % Total Bilirubin (0.30-1.20) mg/dL 06/15/22 06/15/22 06/16/22 Range/Units 17:45 20:08 06:17 Plt Count (150-450) k/uL MPV (9.5-12.2) fL Lymphocytes # (0.90-5.00) X 10*3/uL Sodium (135-145) mmol/L Potassium (3.5-5.5) mmol/L Carbon Dioxide (20.0-27.5) mmol/L BUN (9.0-27.0) mg/dL Creatinine (0.6-1.5) mg/dL Est GFR (CKD-EPI)AfAm (60.0-200.0) Est GFR (CKD-EPI)NonAf (60.0-200.0) BUN/Creatinine Ratio (12.00-20.00) Ratio Glucose (70-110) mg/dL POC Glucose (mg/dL) 129 H 196 H 129 H (70-110) mg/dL Hemoglobin A1c (0.0-6.0) % Total Bilirubin (0.30-1.20) mg/dL 06/16/22 06/16/22 Range/Units 06:30 08:45 Plt Count 146 L (150-450) k/uL MPV (9.5-12.2) fL Lymphocytes # (0.90-5.00) X 10*3/uL Sodium (135-145) mmol/L Potassium (3.5-5.5) mmol/L Carbon Dioxide (20.0-27.5) mmol/L BUN 52 H (9.0-27.0) mg/dL Creatinine 1.79 H (0.6-1.5) mg/dL Est GFR (CKD-EPI)AfAm (60.0-200.0) Est GFR (CKD-EPI)NonAf (60.0-200.0) BUN/Creatinine Ratio (12.00-20.00) Ratio Glucose 121 H (70-110) mg/dL POC Glucose (mg/dL) (70-110) mg/dL Hemoglobin A1c (0.0-6.0) % Total Bilirubin 2.3 H (0.30-1.20) mg/dL
[2022-06-16 12:41] LABS: Glucose,Whole Blood 291 mg/dL (70-110)
--- NOTE | 2022-06-16 12:50 | P.DS ---
Providers Date of admission: 06/14/22 10:59 Expected date of discharge: 06/16/22 Attending physician: Todd Jarrett Consults: 06/13/22 20:16 Consult Physician Urgent Consulting Provider: [facility] Consult Reason/Comments: CHF Do you want consulting provider notified?: Yes, Notify in am 06/14/22 08:26 Consult Physician Routine Consulting Provider: Sahil Zapien Consult Reason/Comments: recurrent pleural effusion, eval for pleurx cath Do you want consulting provider notified?: Yes 06/14/22 12:53 Consult Physician Routine Consulting Provider: Tabby Rivera Consult Reason/Comments: end stage chf sob Do you want consulting provider notified?: Yes Primary care physician: [facility] Course: Discharge diagnoses; Recurrent right-sided pleural effusion, status post thoracentesis, last right- sided thoracentesis 05/29/22 with removal of 2 L Shortness of breath, multifactorial Chronic atrial fibrillation on Eliquis for anticoagulation, last dose Eliquis 06/13/22 Acute on chronic systolic heart failure, EF 20% on most recent echocardiogram, BNP on admission 17,900 Nonischemic cardiomyopathy status post ICD placement in 2007 with upgrade to biv entricular in 2016 Severe mitral regurgitation and most recent echocardiogram Hypertension Hyperlipidemia Chronic kidney disease stage III COPD Type 2 diabetes Hospital course; patient is a 87-year-old female with a past medical history significant for hypertension, hyperlipidemia, diabetes, congestive heart failure, valvular heart disease, biventricular AICD secondary to complete heart block, chronic kidney disease, pleural effusions with history of thoracentesis, and nonischemic cardiomyopathy who presented to the hospital with a chief complaint of shortness of breath . Patient multiple admissions the last few months for for CHF exacerbations with pleural effusions. Patient has been noticing increased shortness of breath for the last few days. Patient denies any fever or chills. Patient also was complaining of swelling of lower extremities. Denied any chest pain Chest xray moderate right and small left pleural effusions with associated atelectasis. Cardiomegaly with pulmonary vascular congestion. Laboratory data: WBC 8.2. Hemoglobin 15.2. Platelet count 190. Sodium 141. Potassium 3.6. BUN 52. Creatinine 1.51. Magnesium 2.4. ProBNP 17,900. Patient was admitted to internal medicine for further evaluation and treatment 06/15. Patient seen and examined.vital signs this morning heart rate 100, respiration 20, 95% on 3 L of oxygen. States she gets short of breath easily on exertion 06/16. Patient seen and examined. status post right Pleurx placement 06/15 with [address] surgery and cardiology has cleared the patient for discharge PHYSICAL EXAMINATION: GENERAL: The patient is alert and oriented x3, not in any acute distress. Chronically ill looking HEENT: Pupils are round and equally reacting to light. EOMI. No scleral icterus. No conjunctival pallor. Normocephalic, atraumatic. No pharyngeal erythema. No thyromegaly. CARDIOVASCULAR: S1 and S2 present. No murmurs, rubs, or gallops. PULMONARY: Diminished breath sounds at the bases bilaterally, pleurax catheter seen ABDOMEN: Soft, nontender, nondistended, normoactive bowel sounds. No palpable organomegaly. MUSCULOSKELETAL: No joint swelling or deformity. EXTREMITIES: No cyanosis, clubbing, or pedal edema. NEUROLOGICAL: Gross neurological examination did not reveal any focal deficits. SKIN: No rashes. Patient Condition at Discharge: Fair Plan - Discharge Summary Discharge Rx Participant: No New Discharge Prescriptions: New hydrALAZINE HCL [Apresoline] 10 mg PO TID #90 tab Continue Simvastatin [Zocor] 20 mg PO HS Levothyroxine Sodium [Synthroid] 25 mcg PO AC-BRKFST Midodrine HCl [ProAmatine] 10 mg PO TID-W/MEALS Loperamide HCl [Imodium A-D] 1 mg PO BID glipiZIDE 7.5 mg PO BID Albuterol Nebulized [Ventolin Nebulized] 2.5 mg INHALATION RT-QID #120 ml Apixaban [Eliquis] 2.5 mg PO BID #60 tab Bumetanide [BUMEX] 2 mg PO DAILY #30 tab Ipratropium-Albuterol Nebulize [Duoneb 0.5 mg-3 mg/3 ml Soln] 3 ml INHALATION RT-QID Dapagliflozin Propanediol [Farxiga] 10 mg PO DAILY #30 tab Discharge Medication List Simvastatin [Zocor] 20 mg PO HS 10/22/15 [History] Levothyroxine Sodium [Synthroid] 25 mcg PO AC-BRKFST 03/30/18 [History] Midodrine HCl [ProAmatine] 10 mg PO TID-W/MEALS 06/22/21 [History] Loperamide HCl [Imodium A-D] 1 mg PO BID 03/10/22 [History] glipiZIDE 7.5 mg PO BID 03/10/22 [History] Albuterol Nebulized [Ventolin Nebulized] 2.5 mg INHALATION RT-QID #120 ml 05/14/22 [Rx] Apixaban [Eliquis] 2.5 mg PO BID #60 tab 05/29/22 [Rx] Bumetanide [BUMEX] 2 mg PO DAILY #30 tab 05/30/22 [Rx] Dapagliflozin Propanediol [Farxiga] 10 mg PO DAILY #30 tab 05/30/22 [Rx] Ipratropium-Albuterol Nebulize [Duoneb 0.5 mg-3 mg/3 ml Soln] 3 ml INHALATION RT-QID 06/13/22 [History] hydrALAZINE HCL [Apresoline] 10 mg PO TID #90 tab 06/16/22 [Rx] Follow up Appointment(s)/Referral(s): Alberto Solomon MD [Primary Care Provider] - 1-2 days Sahil Zapien MD [STAFF PHYSICIAN] - As Needed (Please call surgery office for removal of Pleurx catheter once the drainage has been less than 50 mL 3 times in a row) [facility], [NON-STAFF] - 1 Week Activity/Diet/Wound Care/Special Instructions: PleurX catheter discharge instructions: 1. Home Care is ordered, they will obtain new bottles. 2. May shower after 24 hours, no tub baths/hot tubs. 3. Do not drain more than 1 liter or 1000 mL in 24 hours. 4. New drainage bottle needed with each drainage. 5. Drainage frequency dictated by patient symptoms, may be every day, every other day, weekly, or however often the patient is symptomatic. 6. Please notify [employer] APPRENTICE or office if temperature >101F, excessive pain at insertion site, drainage consistency changes to cloudy or smells bad, catheter falls out, or anything else that concerns you. 7. Contact surgery office with weekly drainage amounts. May fax the amounts. 8. Once drainage is less than 50 mL three times in a row, notify the surgery office for possible removal. Surgery office: , fax Discharge Disposition: HOME WITH HOME HEALTH SERVICES
[2022-06-17] MEDS ORDERED: BUMETANIDE 1 MG TAB PO SCH (09:00)
== END 2022-06-16 13:21 | disposition home health service (06) | DRG 291 ==
LOC: EC 18:11 → 6NMEDSUR 20:18 → OBSVTOIN 06-14 10:59
PROVIDERS: ADMIT Hospitalist; ATTEND Hospitalist
PROC: 0W993ZX Drainage of Right Pleural Cavity, Percutaneous Approach, Diagnostic (ICD-10-PCS; principal; 2022-06-15 17:45)
DX: I13.0 Hypertensive heart and chronic kidney disease with heart failure and stage 1 through stage 4 chronic kidney disease, or unspecified chronic kidney disease (principal); I50.23 Acute on chronic systolic (congestive) heart failure; J96.01 Acute respiratory failure with hypoxia; I48.21 Permanent atrial fibrillation; J44.0 Chronic obstructive pulmonary disease with (acute) lower respiratory infection; J98.11 Atelectasis; J91.8 Pleural effusion in other conditions classified elsewhere; I44.2 Atrioventricular block, complete; I50.84 End stage heart failure; Z51.5 Encounter for palliative care; J44.9 Chronic obstructive pulmonary disease, unspecified; I08.3 Combined rheumatic disorders of mitral, aortic and tricuspid valves; E11.22 Type 2 diabetes mellitus with diabetic chronic kidney disease; I42.8 Other cardiomyopathies; N18.30 Chronic kidney disease, stage 3 unspecified; E78.5 Hyperlipidemia, unspecified; M19.90 Unspecified osteoarthritis, unspecified site; L98.9 Disorder of the skin and subcutaneous tissue, unspecified; Z79.01 Long term (current) use of anticoagulants; Z79.84 Long term (current) use of oral hypoglycemic drugs; Z79.890 Hormone replacement therapy; Z79.899 Other long term (current) drug therapy; Z85.828 Personal history of other malignant neoplasm of skin; Z90.710 Acquired absence of both cervix and uterus; Z95.810 Presence of automatic (implantable) cardiac defibrillator; Z98.51 Tubal ligation status; Z88.1 Allergy status to other antibiotic agents; Z91.048 Other nonmedicinal substance allergy status; Z90.49 Acquired absence of other specified parts of digestive tract; Z87.19 Personal history of other diseases of the digestive system; Z98.42 Cataract extraction status, left eye; Z98.41 Cataract extraction status, right eye
CPT/HCPCS: 36415; 71045; 71046; 80053; 81001; 83036; 83605; 83735; 83880; 85025; 85027; 85610; 85730; 88108; 88305; 93005; 94640; 94760; 96374; 99285